=== PATIENT | male | born 1955 | race Caucasian/White ===

== ENCOUNTER 2017-05-03 08:53 | Emergency (ER) | payer SELFPAY ==
--- NOTE | 2017-05-03 09:07 | XR_ITS ---
XR chest 2V HISTORY: ITS.REASON: cough x 4 days, now SOA ORDERING PHYSICIAN: Wisam Hurd PATIENT AGE: 61 years COMPARISON: None available FINDINGS: The cardiomediastinal silhouette and pulmonary vascularity are within normal limits. There are mild atelectatic changes in the left lung base with minimal nodularity in the retrocardiac region on the left measuring millimeters. No previous studies available for comparison. The remaining lungs are clear. No acute bony anomalies. IMPRESSION: Mild left basilar atelectasis with possible nodular opacity in the left lung base. Follow-up suggested. This persists then, CT may be of further value.
[2017-05-03 09:17] VITALS: BP 123/94; PULSE 98; RESP 22; TEMP 37.7; O2SAT 99; BMI 29.0
[2017-05-03 09:30] LABS: UTC Influenza A Antigen Negative (Negative); UTC Influenza B Antigen Positive (Negative)
--- NOTE | 2017-05-03 09:40 | HMH.EDUTC ---
[facility] Disposition Clinical Impression: Influenza B, Influenzal bronchitis Disposition: Home, Self-Care Condition on Discharge: Good Instructions: DI for Acute Bronchitis, DI for Influenza -- Adult Additional Instructions: Flu * Start Tamiflu today if you are going to take it. Discussed risks and possible benefits. * Lots of rest * Increase fluids, water, gatorade, powerade, pedialyte if /toddler/child * Monitor Temp. Tylenol every 4 hours as needed no more then 5 times a day or 4000mg in 24 hours and/or ibuprofen every 6 hours as needed no more then 3200mg in 24 hours (as long as your primary care doctor has told you that it is ok to take both) for fever/aches/pain. ER if fever no less than 101 despite tylenol and Ibuprofen * OTC cold/flu/sinus medication is ok but pick one. Do not take multiple different ones as they have similar ingredients and you can overdose on cold medication. * You (or your child) are contagious until no fever, aches, chills x 24 hours without medication for symptoms. Bronchitis/Cough * Call later today for final xray results.....[phone] * start antibiotic today. Be sure to complete entire prescription even if feeling better. * humidifier/vaporizer/hot steamy shower * Inhaler every 4-6 hours as needed like we discussed. If unsure how to use it, ask pharmacist to demonstrate how. Should help open airways and improve cough, wheezing, shortness of breath. * Mucinex during the day for your cough and cough suppressant only at night. Be sure to drink lots of water. Insurance may not cover a prescription of mucinex. Might be cheaper to get 400mg tablets and take 2 tablets morning, midday and evening all with lots of water. Follow up with primary care or return to [facility] for new or worsening symptoms, improvement followed by suddenly feeling worse OR no noticeable improvement over the next 48-72 hours. 911 for difficulty breathing Prescriptions: Albuterol Sulfate [Albuterol HFA Inhaler] 1 - 2 puffs IH Q4-6H PRN #1 inh PRN Reason: Shortness Of Breath Or Wheezing Azithromycin [Z-Tigre 250mg Tab] 250 mg PO UD DOSE PK #6 tab guaiFENesin [Mucinex 600mg tablet] 600 mg PO BID #20 tab.er.12h Oseltamivir Phosphate [Tamiflu 75mg Capsule] 75 mg PO BID #10 cap Forms: Work/School Release Time of Disposition: 10:40 (pt is without insurance, plans not to take tamiflu. Was given albuterol inhaler in clinic, will get mucinex OTC and will get the antibiotic. ) Medical Decision Making Vital Signs: 05/03/17 09:17 Temperature 100 F H Temperature Source Temporal Artery Scan Pulse Rate [Right Brachial] 98 H Respiratory Rate 22 Blood Pressure [Right Arm] 123/94 Blood Pressure Mean [Right Arm] 103 Blood Pressure Source [Right Arm] Automatic Cuff Blood Pressure Position [Right Arm] Sitting 02 Sat by Pulse Oximetry 99 Oxygen Delivery Method Room Air - Lab Data Lab results reviewed: Yes: I reviewed the patient's lab results. Lab Results 05/03/17 09:07: Influenza Type A Ag Negative, Influenza Type B Ag Positive A Orders (Tests/Meds): ED MEDICATIONS Discontinued Medications Generic Name Dose Route Start Last Admin Trade Name Freq PRN Reason Stop Dose Admin Albuterol Sulfate 2 puffs 05/03/17 10:47 Proventil-Hfa 90mcg/Puff Inhaler IH 06/02/17 10:46 Q4HP PRN Shortness Of Breath Miscellaneous 1 unit 05/03/17 10:47 Aerochamber/Optihaler MC 05/03/17 10:48 ONCE ONE - Radiology Data #1 Image(s): Chest Image Reviewed: Yes I reviewed the patient's radiology image, Yes I reviewed the patient's radiology image w/the ED provider No obvious infiltrate per ANNABELLE Worthy. Questions area behind heart. Attempted to contact radiologist multiple times to review. Not available. Dr. Banda feels most likely bronchitis and not infiltrate - Blaze Inquiry Pt receiving controlled substance: No [facility] HPI - General Stated complaint: soa cough flu symptoms
--- NOTE | 2017-05-03 10:56 | PC.NURSE ---
1055- RT AT BEDSIDE GIVING PT INSTRUCTIONS ON USE OF INHALER.
== END 2017-05-03 11:07 | disposition home or self-care (01) ==
PROVIDERS: Emergency Provider Nurse Practitioner Family
DX: J10.1 Influenza due to other identified influenza virus with other respiratory manifestations (principal); I10 Essential (primary) hypertension; Z87.891 Personal history of nicotine dependence
CPT/HCPCS: 71046; 87804; 99201

== ENCOUNTER → 2017-09-11 06:43 | Outpatient (CLI) | payer BC, SELFPAY ==
--- NOTE | 2017-09-11 06:46 | NM_ITS ---
History and Indications: Hypertension, tobacco use, family history, chest pain, shortness of breath and fatigue Procedure: Patient exercised on Montez protocol 6 minutes, resting heart rate was 55 bpm resting blood pressure 123/69, with exercise maximum heart rate achieved was 1 28 bpm which is equal to 81% of the maximum predicted heart rate and a blood pressure was 180/76. Test was stopped due to shortness of breath patient denied any complained of chest pain. Patient has adequate exercise capacity achieved 7mets of workload on treadmill, the blood pressure response to exercise was adequate. Patient did not achieve the target heart rate. Electrocardiogram: Resting electrocardiogram showed sinus bradycardia, with exercise there is less than 1.[address] segment depression noted from the baseline EKG. The EKG portion of the exercise Myoview is nondiagnostic as patient did not achieve the target heart rate. Cardiac stress and resting SPECT images: Cardiac stress and rest images were obtained using technetium 99 Myoview 30.4 mCi at stress and 9.8 mCi at rest. Gated SPECT further analysis of segmental wall motion and calculation of the ejection fraction also done. Cardiac stress and rest SPECT images show uniform myocardial activity without any segmental perfusion abnormality, computer derived ejection fraction is 56% with no obvious regional wall motion abnormality, right ventricle is normal size and contractility. Conclusion: 1. The EKG portion of the exercise Myoview is nondiagnostic patient did not achieve the target heart rate. Patient has adequate exercise capacity achieved 7mets of workload on treadmill, the blood pressure response to exercise was adequate. There was no exercise-induced chest discomfort. 2. No obvious scintigraphic evidence of reversible ischemia seen, computer derived ejection fraction is 56% with no obvious regional wall motion abnormality, right ventricle is normal size and contractility.
--- NOTE | 2017-09-11 06:46 | CA_ITS ---
PROCEDURE: 2-D M-mode and color Doppler study INDICATIONS FOR THE TEST: Chest pain COPD Heart Murmur Tobacco SmokingX Palpitations Fatigue Syncope Edema HypertensionXDiabetes Mellitus Rheumatic Fever SOBXDOEXObesity Hyperlipidemia Family History HD Additional History CAD,ETOH ABUSE PATIENT INFORMATION HEIGHT: 71 WEIGHT:189 GENDER: Male B/P:130/80 2-D/M-MODE INTERPRETATION: 2-D MEASUREMENTS OBSERVED VALUES IN CMS Right Ventricular Dimension (RVDd) 1.9 Interventricular Septum (Thickness)(IVsd) .8 Left Ventricular Internal Dimensions(LVIDd) 5.7 Left Ventricular Posterior Wall (Thickness)(LVPWd) .9 Aortic Root 3.4 Aortic Cusp Separation 2.1 Left Atrial Dimensions (LAD) 3.2 2D 1. Left atrium is mildly enlarged, left ventricle is normal size, there is mild qualitative concentric left ventricular hypertrophy, visually estimated ejection fraction 55% with no obvious regional wall motion abnormality, septum has sigmoid configuration. 2. Right atrium is recommended ventricle are normal size and contractility. 3. The aortic, mitral and tricuspid valve are grossly normal. 4. The pulmonic valve is poorly visualized 5. No significant pericardial effusion noted. DOPPLER INTERROGATION: Doppler interrogation of the aortic, mitral and tricuspid valvular presence of mild mitral and tricuspid regurgitation, calculated right ventricular systolic pressure is within normal range, diastolic parameters are inconclusive. CONCLUSION: 1. Normal left ventricular size, preserved left ventricular systolic function, visually estimated ejection fraction 55% with no obvious regional wall motion abnormality, diastolic parameters are inconclusive. 2. Mild mitral and tricuspid regurgitation 3. No significant no significant pericardial effusion noted.
--- NOTE | 2017-09-11 06:50 | US_ITS ---
US Arterial Ankle Brachial Ind History: ITS.REASON: CLAUDICATION, claudication, rest pain, current smoker ORDERING PHYSICIAN: Hayden Anthony MD PATIENT AGE: 61 years TECHNIQUE: Segmental pressures obtained of both right and left leg. These are compared to brachial blood pressure to yield index at each level sampled including summary IONA. The data sheets from the procedure are available in PACS FINDINGS Rest study only performed today No prior studies available for comparison. Blood pressures reported are in millimeters mercury. RIGHT LEG IONA = 1.2. RIGHT LEG TBI=.9 Brachial BP: 123 Thigh BP: 130 Calf BP: 144 Ankle PT: 157 Ankle DP : 155 Digit =110 LEFT LEG IONA = 1.2 LEFT LEG TBI= 1.0 Brachial BPD: 127 Thigh BP: 135 Calf BP: 134 Ankle PT:154 Ankle DP: 132 Digit = 125 Pulses and waveforms: Normal IMPRESSION: The ABIs as reported above are within normal limits. Waveforms and pulses are also unremarkable.
--- NOTE | 2017-09-11 07:53 | HMH.ITSHM ---
BLOOD PRESSURE MED ASA LEG CRAMP PILLS
== END ==
PROVIDERS: PCP Nurse Practitioner Family; Visit Provider Internal Medicine Cardiovascular Disease
DX: I70.213 Atherosclerosis of native arteries of extremities with intermittent claudication, bilateral legs (principal); I73.9 Peripheral vascular disease, unspecified
CPT/HCPCS: 78452; 93017; 93306; 93922; A9502

== ENCOUNTER → 2018-03-05 10:11 | Outpatient (CLI) | payer BC, SELFPAY ==
--- NOTE | 2018-03-05 10:21 | US_ITS ---
US gallbladder HISTORY: Right-sided abdominal pain ITS.REASON: pain ORDERING PHYSICIAN: Ced Al MD PATIENT AGE: 62 years Comparison: None FINDINGS: PANCREAS: Unremarkable. No obvious mass or abnormal fluid collection. No ductal dilatation LIVER: There is coarse echogenicity of the liver irregularity at the liver margin better demonstrated on the CT scan consistent with cirrhosis. There is appropriate direction of blood flow within the portal vein which does not appear dilated by ultrasound. RIGHT KIDNEY: Unremarkable. Normal size and echogenicity. No hydronephrosis GALLBLADDER: No gallstones apparent. There is a small amount sludge. A small polyp noted along the posterior wall the gallbladder. This measures 4 mm. Common bile duct is normal at 3 mm. IMPRESSION: 1. The findings are compatible with cirrhosis. 2. Small amount of sludge in the gallbladder the small gallbladder polyp. No gallstones apparent
[2018-03-05 10:25] LABS: Basophils % 0.2 % (0.1-2.0); Eosinophils # 0.2 K/mm3 (0.0-0.4); Eosinophils % 1.3 % (0.1-12.0); Hematocrit 45.1 % (42.0-52.0); Hemoglobin 15.2 g/dL (14.1-18.0); Lymphocytes # 1.2 K/mm3 (0.7-4.5); Mean Corpuscular HGB Conc 33.7 g/dL (31.8-35.4); Mean Corpuscular Hemoglobin 32.2 pg (27.0-31.2); Mean Corpuscular Volume 95.4 fl (80-94); Monocytes # 0.6 K/mm3 (0.1-1.0); Monocytes % 5.3 % (1.7-9.3); Neutrophils # 9.9 K/mm3 (1.8-7.8); Neutrophils % 83.3 % (37.0-80.0); Platelet Count 131 K/mm3 (142-424); Red Blood Count 4.73 M/mm3 (4.60-6.20); Red Cell Distribution Width 13.3 % (11.5-17.5); White Blood Count 11.9 K/mm3 (4.8-10.8)
[2018-03-05 10:33] LABS: INR 1.15 (0.9-1.1); Prothrombin Time 11.8 seconds (9.4-11.8)
[2018-03-05 12:51] LABS: Alanine Aminotransferase 100 U/L (12-78); Albumin Level 3.4 gm/dL (3.4-5.0); Albumin/Globulin Ratio 0.8 (1.1-1.8); Alkaline Phosphatase 114 U/L (46-116); Anion Gap 14.1 mEq/L (5-15); Aspartate Amino Transferase 46 U/L (15-37); Bilirubin,Total 0.7 mg/dL (0.2-1.0); Blood Urea Nitrogen 14 mg/dL (7-18); Calcium 9.5 mg/dL (8.5-10.1); Carbon Dioxide 26 mmol/L (21.0-32.0); Chloride 102 mmol/L (98-107); Creatinine,Serum 0.72 mg/dL (0.70-1.30); Estimated Glomerular Filt Rate 110 ml/min (>60); GFR (African American) 133 ML/MIN (>60); Globulin 4.1 gm/dl (1.3-3.2); Glucose 138 mg/dL (74-106); Lipase 346 u/L (73-393); Potassium 4.1 mmoL/L (3.5-5.1); Sodium 138 mmol/L (136-145); Total Protein,Serum 7.5 gm/dL (6.4-8.2)
[2018-03-06 16:04] LABS: Hep A Ab, Total Positive (Negative)
[2018-03-08 20:11] LABS: HCV Genotype Charge YES; Hepatitis C Genotype 1a (.)
== END ==
PROVIDERS: Visit Provider Emergency Medicine
DX: R76.8 Other specified abnormal immunological findings in serum (principal); R74.8 Abnormal levels of other serum enzymes; R52 Pain, unspecified
CPT/HCPCS: 36415; 76705; 80053; 83690; 85025; 85610; 86708; 87522; 87902

== ENCOUNTER → 2018-03-15 14:13 | Outpatient (CLI) | payer BC, SELFPAY ==
[2018-03-19 09:16] LABS: HIV Screen 4th Generation wRfx Non Reactive (Non Reactive)
== END ==
PROVIDERS: Visit Provider Emergency Medicine
DX: B19.20 Unspecified viral hepatitis C without hepatic coma (principal)
CPT/HCPCS: 36415; 86703; G0432

== ENCOUNTER → 2018-04-03 09:55 | Outpatient (CLI) | payer BC, SELFPAY ==
--- NOTE | 2018-04-03 09:56 | NM_ITS ---
NM hepatobiliary wo pharm COMPARISON: Ultrasound the gallbladder 03/05/2018 HISTORY: Upper abdominal pain, gallbladder sludge seen on the ultrasound study TECHNIQUE: 8.79 mCi technetium 9M Choletec was injected. Following the initial scanning a fatty meal was given to evaluate for ejection fraction. FINDINGS: The hepatic phase appear normal. There is faint activity seen in gallbladder 20 minutes becoming more intense up through 50 minutes. There is activity in common bile duct and duodenal sweep and proximal small bowel at 45 and 50 minutes images. Following the fatty meal the ejection fraction was cannulated at 46% which is within normal range. There is no pain following the fatty meal. IMPRESSION: Normal study with normal ejection fraction
--- NOTE | 2018-04-03 10:12 | HMH.ITSHM ---
Current Home Medications as stated by this patient Evarisot Whitfield or artist representative. []BLOOD PRESSURE MED
== END ==
PROVIDERS: PCP Emergency Medicine; Visit Provider Emergency Medicine
DX: R10.9 Unspecified abdominal pain (principal); K82.8 Other specified diseases of gallbladder
CPT/HCPCS: 78226; A9537

== ENCOUNTER → 2018-12-04 14:06 | Outpatient (CLI) | payer OTHER, SELFPAY ==
[2018-12-04 14:57] LABS: Basophils % 0.6 % (0.1-2.0); Eosinophils # 0.3 K/mm3 (0.0-0.4); Eosinophils % 5.1 % (0.1-12.0); Hematocrit 47.7 % (42.0-52.0); Hemoglobin 16.2 g/dL (14.1-18.0); Lymphocytes # 1.2 K/mm3 (0.7-4.5); Lymphocytes % 22.6 % (10-50); Mean Corpuscular HGB Conc 33.9 g/dL (31.8-35.4); Mean Corpuscular Hemoglobin 33.3 pg (27.0-31.2); Mean Corpuscular Volume 98.4 fl (80-94); Mean Platelet Volume 10.1 fl (7.4-10.4); Monocytes # 0.4 K/mm3 (0.1-1.0); Monocytes % 8.1 % (1.7-9.3); Neutrophils # 3.4 K/mm3 (1.8-7.8); Neutrophils % 63.6 % (37.0-80.0); Platelet Count 104 K/mm3 (142-424); Red Blood Count 4.85 M/mm3 (4.60-6.20); Red Cell Distribution Width 13.3 % (11.5-17.5); White Blood Count 5.4 K/mm3 (4.8-10.8)
== END ==
PROVIDERS: Visit Provider Emergency Medicine
DX: M25.512 Pain in left shoulder (principal)
CPT/HCPCS: 85025

== ENCOUNTER → 2019-01-10 12:02 | Outpatient (CLI) | payer OTHER, SELFPAY ==
[2019-01-10 14:01] LABS: Hemoglobin A1C 5.5 % (0.0-7.0)
[2019-01-11 12:32] LABS: Folate 13.5 ng/mL (>3.0); Vitamin B12 836 pg/mL (232-1245); Vitamin D 25 Hydroxy 28.8 ng/mL (30.0-100.0)
== END ==
PROVIDERS: Visit Provider Nurse Practitioner Family
DX: R25.1 Tremor, unspecified (principal); R73.9 Hyperglycemia, unspecified
CPT/HCPCS: 36415; 82607; 82652; 82746; 83036

== ENCOUNTER 2020-06-21 22:36 | Emergency (ER) | payer MEDICARE, OTHER, SELFPAY ==
[2020-06-22 02:20] VITALS: BP 00/00; PULSE 0; RESP 0; TEMP -17.7; TEMP 0
== END 2020-06-22 02:41 | disposition left against medical advice (07) ==
LOC: ER 06-22 02:37
PROVIDERS: Emergency Provider Emergency Medicine; PCP Emergency Medicine
DX: Z53.21 Procedure and treatment not carried out due to patient leaving prior to being seen by health care provider (principal)
CPT/HCPCS: 99211

== ENCOUNTER 2020-06-29 12:14 | Observation (INO) | payer MEDICARE, OTHER, SELFPAY ==
[2020-06-29] VITALS (13 sets, daily range): BP systolic 129–160; BP diastolic 78–94; PULSE 46–78; RESP 16–18; TEMP 36.6; O2SAT 96–98; BMI 27.1; BMI 27.8
--- NOTE | 2020-06-29 12:20 | XR_ITS ---
PROCEDURE: XR CHEST PORTABLE CLINICAL HISTORY: SOA COMPARISON: CR CXR2V XR chest 2V from 05/03/2017 CR CXR2V XR chest 2V from 07/28/2017 CR XR CHEST 2V from 11/29/[address] ANGIO CHEST from 11/29/2018 FINDINGS: This is a poor inspiration. There is minimal right basilar discoid atelectasis. The right mid and upper lung field and left lung shaw are clear. There is no definite pleural fluid. Cardiac size is normal and vascularity is normal. IMPRESSION: Poor inspiration with minimal right basilar atelectasis Dictated by: Dr. Vick Diaz MD 06/29/2020 13:12 Dr. Vick Diaz MD in [place] 06/29/2020 13:12
[2020-06-29 12:37] LABS: Adenovirus,PCR Not Detected (NotDetected); Bordetella Pertussis Not Detected (NotDetected); Chlamydophila Pneumoniae, PCR Not Detected (NotDetected); Coronavirus 19, PCR Not Detected (NotDetected); Coronavirus 229E Not Detected (NotDetected); Coronavirus NL63 Not Detected (NotDetected); Coronavirus OC43 Not Detected (NotDetected); Coronovirus HKU1,PCR Not Detected (NotDetected); Human Metapneumovirus Not Detected (NotDetected); Influenza A, PCR Not Detected (NotDetected); Influenza AH1, 2009 Not Detected (NotDetected); Influenza AH1, PCR Not Detected (NotDetected); Influenza AH3,PCR Not Detected (NotDetected); Influenza B, PCR Not Detected (NotDetected); Mycoplasma Pneumoniae, PCR Not Detected (NotDetected); Parainfluenza 1, PCR Not Detected (NotDetected); Parainfluenza 2, PCR Not Detected (NotDetected); Parainfluenza 3, PCR Not Detected (NotDetected); Parainfluenza 4, PCR Not Detected (NotDetected); Respiratory Syncytial Virus Not Detected (NotDetected); Rhinovirus/Enterovirus Not Detected (NotDetected)
--- NOTE | 2020-06-29 12:53 | HMH.EDGENADL ---
ED Disposition Clinical Impression: Edema Qualifiers: Edema type: unspecified Qualified Code(s): R60.9 - Edema, unspecified Ascites Qualifiers: Ascites type: due to alcoholic cirrhosis Qualified Code(s): K70.31 - Alcoholic cirrhosis of liver with ascites Cirrhosis Qualifiers: Hepatic cirrhosis type: alcoholic cirrhosis Ascites presence: with ascites Qualified Code(s): K70.31 - Alcoholic cirrhosis of liver with ascites Disposition: Admitted as Observation Condition on Discharge: [facility] - Critical Care Critical Care Time: No Attestation: On 06/29/20, the high probability of a clinically significant, sudden or life threatening deterioration of the following system(s) required my full and direct attention, intervention and personal management. The time I documented below is in addition to time spent performing reported procedures but includes the following listed in this critical care notation. Medical Decision Making - Blaze Inquiry Pt receiving controlled substance: No Vital Signs: 06/29/20 12:16 06/29/20 14:15 06/29/20 14:30 Temperature 97.8 F Temperature Source Oral Pulse Rate 57 L 59 L Pulse Rate [Right Radial] 60 Respiratory Rate 16 Blood Pressure 153/94 H Blood Pressure [Right Arm] 160/91 H Blood Pressure Mean 123 Blood Pressure Mean [Right Arm] 114 Blood Pressure Source [Right Arm] Automatic Cuff Blood Pressure Position [Right Arm] Sitting 02 Sat by Pulse Oximetry 97 97 96 Oxygen Delivery Method Room Air 06/29/20 14:45 06/29/20 16:09 06/29/20 16:31 Temperature Temperature Source Pulse Rate 66 46 L 50 L Pulse Rate [Right Radial] Respiratory Rate Blood Pressure 140/78 160/89 H Blood Pressure [Right Arm] Blood Pressure Mean 98 112 Blood Pressure Mean [Right Arm] Blood Pressure Source [Right Arm] Blood Pressure Position [Right Arm] 02 Sat by Pulse Oximetry 97 98 97 Oxygen Delivery Method 06/29/20 16:45 06/29/20 17:00 06/29/20 17:15 Temperature Temperature Source Pulse Rate 62 78 59 L Pulse Rate [Right Radial] Respiratory Rate Blood Pressure 137/84 Blood Pressure [Right Arm] Blood Pressure Mean 101 Blood Pressure Mean [Right Arm] Blood Pressure Source [Right Arm] Blood Pressure Position [Right Arm] 02 Sat by Pulse Oximetry 97 97 98 Oxygen Delivery Method 06/29/20 17:30 06/29/20 18:00 06/29/20 18:15 Temperature 97.8 F 97.9 F Temperature Source Oral Pulse Rate 67 67 Pulse Rate [Right Radial] 66 Respiratory Rate 18 18 Blood Pressure 147/90 H 147/90 H Blood Pressure [Right Arm] 148/78 H Blood Pressure Mean 103 Blood Pressure Mean [Right Arm] 101 Blood Pressure Source [Right Arm] Automatic Cuff Blood Pressure Position [Right Arm] 02 Sat by Pulse Oximetry 97 97 Oxygen Delivery Method Room Air Room Air - Lab Data Lab Results 06/29/20 12:20: Chlamy pneumoniae PCR Not detected, Adenovirus (PCR) Not detected, B. pertussis DNA (PCR) Not detected, Coronavirus OC43 (PCR) Not detected, Coronavirus HKU1 (PCR) Not detected, Coronavirus 229E (PCR) Not detected, SARS-CoV-2 (PCR) Not detected, Coronavirus NL63 (PCR) Not detected, Human Metapneumovir PCR Not detected, Influenza A (H1) PCR Not detected, Influ A (H1N1/09) PCR Not detected, Influenza A (H3) PCR Not detected, Influenza Type A (PCR) Not detected, Influenza Type B (PCR) Not detected, M. pneumoniae (PCR) Not detected, Parainfluenza 1 (PCR) Not detected, Parainfluenza 2 (PCR) Not detected, Parainfluenza 3 (PCR) Not detected, Parainfluenza 4 (PCR) Not detected, RSV (PCR) Not detected, Entero/Rhino (PCR) Not detected 06/29/20 12:44: WBC 5.6, RBC 4.62, Hgb 15.9, Hct 45.2, MCV 98.0 H, MCH 34.4 H, MCHC 35.1, RDW 13.7, Plt Count 102 L, MPV 9.6, Neut % (Auto) 69.9, Lymph % (Auto) 16.8, [place] % (Auto) 5.4, Eos % (Auto) 7.3, Baso % (Auto) 0.7, Neut # (Auto) 3.9, Lymph # (Auto) 0.9, [place] # (Auto) 0.3, Eos # (Auto) 0.4, Baso # (Auto) 0.0 06/29/20 1
--- NOTE | 2020-06-29 12:57 | ECG_ITS ---
APPROVED REPORT Exam: Resting ECG HR:56 bpm ECG Measurements Heart Rate 56 AXES NH 152 P 46 QRSd 82 QRS 26 QT 436 T 43 QTc 420 Conclusion Sinus bradycardia with premature atrial complexes Otherwise normal ECG Electronically signed by : Octaviano Tapia, 06/29/2020 20:44:13
[2020-06-29 13:04] LABS: Chloride 106 mmol/L (98-107); Potassium 3.6 mmoL/L (3.5-5.1); Sodium 139 mmol/L (136-145)
[2020-06-29 13:05] LABS: Basophils % 0.7 % (0.1-2.0); Eosinophils # 0.4 K/mm3 (0.0-0.4); Eosinophils % 7.3 % (0.1-12.0); Hematocrit 45.2 % (42.0-52.0); Hemoglobin 15.9 g/dL (14.1-18.0); Lymphocytes # 0.9 K/mm3 (0.7-4.5); Lymphocytes % 16.8 % (10-50); Mean Corpuscular HGB Conc 35.1 g/dL (31.8-35.4); Mean Corpuscular Hemoglobin 34.4 pg (27.0-31.2); Mean Platelet Volume 9.6 fl (7.4-10.4); Monocytes # 0.3 K/mm3 (0.1-1.0); Monocytes % 5.4 % (1.7-9.3); Neutrophils # 3.9 K/mm3 (1.8-7.8); Neutrophils % 69.9 % (37.0-80.0); Platelet Count 102 K/mm3 (142-424); Red Blood Count 4.62 M/mm3 (4.60-6.20); Red Cell Distribution Width 13.7 % (11.5-17.5); White Blood Count 5.6 K/mm3 (4.8-10.8)
[2020-06-29 13:07] LABS: Anion Gap 9.6 mEq/L (5-15); Blood Urea Nitrogen 11 mg/dl (9-20); Calcium 9.2 mg/dl (8.4-10.2); Carbon Dioxide 27 mmol/L (22.0-30.0); Creatinine Clearance Estimated 3 mL/min (50-200); Estimated Glomerular Filt Rate 135 ml/min (>60); GFR (African American) 164 ML/MIN (>60); Glucose 101 mg/dl (74-100)
--- NOTE | 2020-06-29 13:07 | CA_ITS ---
APPROVED REPORT EXAM: Comprehensive 2D, Doppler, and color-flow Echocardiogram Frame Gate Mortiser Operator: Kathy Mendez RVT Ht: 5 ft 11 in Wt: 209lbs BSA: 2.15 BP: 160/91 mmHg Indications: CHF,CIRRHOSIS,HTN,HLD,FATIGUE,EX SMOKER,EDEMA 2D Dimensions LVOT 1.95 cm (M/F) 1.5-2.5 LA Volume 36.50 mL LA Volume Index 16.97 mL/m2 (M/F) 16-34 M-Mode Dimensions RVDd 2.43 cm (0.9-2.6) LA Diam 3.82 cm (1.9-4.0) LVDd 4.97 cm (3.5-5.7) Ao Diam 3.14 cm (2.0-3.7) LVDs 3.22 cm (3.5-5.7) IVSd 0.82 cm (0.6-1.1) PWd 0.82 cm (0.6-1.1) EF (Teich) 64.30% FS 35.20% EDV (Teich) 116.60 mL ESV (Teich) 41.60 mL LV Diastology E Decel Time 330.00 (160-240 msec) E/A Ratio 1.2 MED E' 7.00 (< 7 cm/sec) E'/MED E' Ratio 12.03 (>14) LAT E' 7.30 (<10 cm/sec) E/LAT E' Ratio 11.53 (>14) Mitral Valve MV E Max Jared. 84.00 (40-130 cm/s) MV A Velocity 72.00 (40-130 cm/s) E/A Ratio 1.18 MV Decel. Time 330.00 (160-240 ms) MV PHT 97.00 ms Pulmonary Valve PV Peak Velocity 85.00 (50-150 cm/s) Tricuspid Valve TR P. Velocity 337.00 cm/s RAP Estimate 10.00 mmHg RVSP 55.50 mmHg Left Ventricle Left atrium is mildly enlarged, left ventricle is normal size, mild concentric left ventricular hypertrophy, visually estimated ejection fraction 55% with no regional wall motion abnormality, grade 1 diastolic dysfunction seen without tissue Doppler evidence of raise left atrial pressure. Right Ventricle Right atrium and right ventricle are normal size and contractility. Aortic Valve Aortic valve is minimally thickened and fibrosed, there is no aortic stenosis or aortic insufficiency. Mitral Valve Mitral valve is grossly normal, there is trace mitral regurgitation. Tricuspid Valve Tricuspid valve grossly normal, there is trace tricuspid regurgitation, tricuspid regurgitation jet velocity is inadequate for calculation of the right ventricular systolic pressure. Pulmonic Valve Pulmonic valve is poorly visualized. Great Vessels Aortic root is normal size. Pericardium No significant pericardial effusion noted. Conclusion 1. Normal left ventricular size, mild concentric left ventricular hypertrophy, visually estimated ejection fraction 55% with no regional wall motion abnormality, grade 1 diastolic dysfunction seen without tissue Doppler evidence of raise left atrial pressure. 2. Trace mitral and tricuspid regurgitation. 3. No significant pericardial effusion noted. Electronically signed by : Hayden Anthony, 06/29/2020 19:57:40
--- NOTE | 2020-06-29 13:12 | CT_ITS ---
PROCEDURE: CT ABDOMEN PELVIS W CON CLINICAL INDICATION: ascites ascites, bloating, shortness of breath, known cirrhosis of the liver COMPARISON: CT CT ABDOMEN PELVIS W CON from 11/29/2018 TECHNIQUE: IV Contrast: 75ML OPTIRAY 350 Oral Contrast none given Axial images obtained with sagittal and coronal reformats. All CT scans at the facility use one or more dose reduction, viz: automated exposure control, ma/kV adjustment per patient size (including targeted exams where dose is matched to indication, i.e. head), or iterative reconstruction technique. FINDINGS: Lower thorax: There is right lower lobe atelectasis, there is no pleural fluid ABDOMEN: Liver: Advanced cirrhotic changes of the liver are again noted hypertrophy of the left lobe, nodular contour of the liver, prominence of the caudate lobe and borderline splenomegaly. Gallbladder: The gallbladder is normal in size and there is a small calcified gallstone near the neck of the gallbladder.. Pancreas: No masses or peripancreatic fluid collections. Spleen: Borderline splenomegaly Adrenals: Again noted is a small hypodense mass involving the right adrenal gland with a calcification stable and unchanged from the previous exam. Kidneys/ureters: The kidneys are normal in size and show symmetrical function. There is a calcification lower pole right kidney. There is no obstructive uropathy of either kidney. ABDOMEN & PELVIS: Stomach bowel: Nondistended. No obvious mass or thickening. There is a small hiatal hernia. Peritoneum: There is a massive amount of abdominal ascites representing a definite change from the previous exam at which time no definite ascites was seen. Lymph nodes: No enlarged lymph nodes apparent. Vasculature: No evidence of abdominal aortic aneurysm. No retroperitoneal hemorrhage evident. Bones: No acute fracture PELVIS: Reproductive: unremarkable Bladder: The bladder is partially decompressed and large amount of ascitic fluid ascending into the pouch of Kenan between the urinary bladder and rectum. Appendix: Not definitely identified but there is no definite evidence of appendicitis. IMPRESSION: Advanced cirrhotic changes of the liver with a massive amount of abdominal ascites representing the most significant change from the previous study a probable portal hypertension. 1. Nonobstructing calculus lower pole right kidney Dictated by: Dr. Vick Diaz MD 06/29/2020 14:17 Dr. Vick Diaz MD in [place] 06/29/2020 14:17
[2020-06-29 13:17] LABS: NT Pro Brain Natriuretic Pep. 85.1 pg/mL (0-125)
[2020-06-29 13:19] LABS: Lactic Acid 1.4 mmol/L (0.7-2.1)
[2020-06-29 13:21] LABS: Troponin I < 0.01 ng/ml (0.00-0.034)
[2020-06-29 13:32] LABS: Alanine Aminotransferase 69 U/L (12-78); Alkaline Phosphatase 90 U/L (38-126); Aspartate Amino Transferase 21 U/L (17-59); Bilirubin,Direct 0.6 mg/dl (0.0-0.4); Bilirubin,Total 2.6 mg/dl (0.2-1.3)
[2020-06-29 13:33] LABS: Albumin Level 4.3 g/dl (3.5-5.0); Total Protein,Serum 6.7 g/dl (6.3-8.2)
--- NOTE | 2020-06-29 14:31 | US_ITS ---
PROCEDURE: US PARACENTESIS CLINICAL INDICATION: ascites COMPARISON: No exams were available for comparison TECHNIQUE: Informed consent was obtain prior to procedure. After appropriate Time out, under aseptic conditions and local anesthesia with 1% buffered lidocaine using sonographic guidance a 6 Lao Xvcs-D-Epyjeops catheter was inserted into the largest pocket of fluid localized in the right lower quadrant. Approximately 4900 mL serosanguineous fluid was drained. The patient tolerated the procedure well and left the radiology suite in stable condition. FINDINGS: Diffuse ascites IMPRESSION: Successful sonographic guided paracentesis without complication. Dictated by: Gopal Loya MD 06/29/2020 19:24 Gopal Loya MD in [facility] 06/29/2020 19:24
--- NOTE | 2020-06-29 14:38 | PC.NURSE ---
care management called for admission
--- NOTE | 2020-06-29 14:58 | PC.NURSE ---
taking pt to ultra sound
--- NOTE | 2020-06-29 15:57 | HMH.CNCARD ---
History of Present Illness Consult date: 06/29/20 Requesting physician: Antelmo Rivera Consult reason: shortness of breath Chief complaint: Shortness of breath History of present illness: 64-year-old male presented to ED with increased shortness of breath and abdominal distention. Patient states for the past few days he has noticed that he has been having increased abdominal swelling extending down to his lower extremities. Patient denies chest pain, tightness or pressure. Patient does have shortness of breath especially with exertion. Patient denies dizziness or palpitations. Patient does state that he just has a uncomfortable feeling in his epigastric area and feels that it is mostly due to this distention of his abdomen. Patient denies any diarrhea or constipation. Patient was seen by PCP earlier today. Patient was sent to the ED for evaluation and possible admission. Patient denies any history of hypertension, diabetes or COPD. Patient states he is a ex tobacco user and alcohol abuser but has quit 4 years ago. Patient does have ascites noted of the abdominal area. Patient was diagnosed with cirrhosis of the liver [address] of the abdomen and pelvis was performed which revealed advanced cirrhotic changes of the liver and massive amount of abdominal ascites and a nonobstructing calculus lower pole right kidney. Troponin x1 negative. ECG revealed sinus bradycardia with premature atrial complexes with a heart rate of 56 bpm. Blood pressure is stable. CTA of Abd/pelvis IMPRESSION: Advanced cirrhotic changes of the liver with a massive amount of abdominal ascites representing the most significant change from the previous study a probable portal hypertension. 1. Nonobstructing calculus lower pole right kidney Discussed plan of care with Dr. Guzman. Obtain echocardiogram to assess for LV function and valve status. Pending on the results of the echocardiogram may suggest or recommend changes to medications or treatment therapy. Please notify cardiology of any changes in patient status. Thank you for allowing cardiology to participate in the care of this patient. [facility] History I have reviewed the patient's past medical history: Yes Medical History: Reports:: Anxiety, Hypertension Denies:: Diabetes Mellitus Type 2 *Have you ever received a pneumonia vaccine?: No *Have you received a flu vaccine this season?: No Other Surgeries: Yes: No Previous Surgery, Other Amputation: No Fractures: No - *Social History Smoking Status: Current every day smoker Tobacco Type: cigarettes # Packs/Day (cigarettes): 1 Alcohol Intake: never Alcohol Intake Frequency:: other Substance Use Type: denies use *Occupational Status:: retired Housing: house Household Members: family *Travel in the last 8 weeks: Inside the [place] - Psychiatric History Pschychiatric History:: Reports:: Anxiety Family Hx:: Coronary Artery Disease, Heart Attack, Stroke, Cancer Meds Home Medications Medication Instructions Recorded Confirmed Type No Known Home Medications 02/04/20 06/29/20 History Allergies Allergy/AdvReac Type Severity Reaction Status Date / Time No Known Allergies Allergy Verified 06/29/20 10:56 Exam Vital signs and Labs for Last 24 Hours: Temp Pulse Resp BP Pulse Ox 97.8 F 66 16 153/94 H 97 06/29/20 12:16 06/29/20 14:45 06/29/20 12:16 06/29/20 14:30 06/29/20 14:45 Laboratory Results - last 24 hr 06/29/20 12:20: Chlamy pneumoniae PCR Not detected, Adenovirus (PCR) Not detected, B. pertussis DNA (PCR) Not detected, Coronavirus OC43 (PCR) Not detected, Coronavirus HKU1 (PCR) Not detected, Coronavirus 229E (PCR) Not detected, SARS-CoV-2 (PCR) Not detected, Coronavirus NL63 (PCR) Not detected, Human Metapneumovir PCR Not detected, Influenza A (H1) PCR Not detected, Influ A (H1N1/09) PCR Not detected, Influenza A (H3) PCR Not detected, Influenza Type A (PCR) Not detected, Influenza Type B (PCR)
--- NOTE | 2020-06-29 16:08 | PC.NURSE ---
Addendum entered by Miranda Singh RN 06/29/20 16:08: They reported to have taken 4,900ml of fluid during paracentesis. MD Rivera notified Original Note: pt back from radiology
[2020-06-29 16:45] LABS: Appearance,Body Fld. Normal; Source, Body Fld. Paracentesis Fluid
[2020-06-29 16:46] LABS: RBC,Body Fluid < 10 cells/uL (< 10 X 10^3); TNC,Body Fluid 115 cells/uL (< 1000); Volume,Body Fld. 4900 mL
--- NOTE | 2020-06-29 17:10 | PC.NURSE ---
betty called to ask if pt was a&o to see what room to put him in
--- NOTE | 2020-06-29 17:15 | PC.NURSE ---
called to pt a regular tray
--- NOTE | 2020-06-29 17:45 | PC.NURSE ---
report called to Tiffanie Zuniga RN on 2nd floor.
--- NOTE | 2020-06-29 18:00 | PC.NURSE ---
Pt arrived to the floor at this time.
[2020-06-29 18:32] LABS: Mononuclear WBCs,Body Fluid 94 %; Polynuclear WBC,Body Fluid 6 %
--- NOTE | 2020-06-29 20:07 | HMH.HP ---
*Admission Date: 06/29/20 *Chief complaint: abd swelling *History of present illness: this patient presented to ed after seeing pcp-he has distented abd and sob - remote hx of etoh and untreated hep c -The patient is sent from Dr. Al's office. He reports swelling of the abdomen and legs for 1 month, worsening over the past week. Weight gain. Shortness of breath. States that he was diagnosed with cirrhosis 2 years ago. Former drinker and smoker, quit both 4 years ago. He states Dr. Al was concerned about his heart, congestive heart failure, and he is sent to the emergency department for work-up and for admission. pt was found to have sig ascites and had paracentesis and was admitted [facility] History I have reviewed the patient's past medical history: Yes Medical History: Reports:: Anxiety, Hypertension Denies:: Diabetes Mellitus Type 2 *Have you ever received a pneumonia vaccine?: No *Have you received a flu vaccine this season?: No Other Surgeries: Yes: No Previous Surgery, Other Amputation: No Fractures: No - *Social History Smoking Status: Current every day smoker Tobacco Type: cigarettes # Packs/Day (cigarettes): 1 Alcohol Intake: never Alcohol Intake Frequency:: other Substance Use Type: denies use *Occupational Status:: retired Housing: house Household Members: family *Travel in the last 8 weeks: Inside the [place] - Psychiatric History Pschychiatric History:: Reports:: Anxiety Family Hx:: Coronary Artery Disease, Heart Attack, Stroke, Cancer Review of Systems - Review of Systems Review of systems:: pertinent systems reviewed and negative unless documented below - Constitutional Denies fever(s) - Eyes Denies change in vision - ENT Denies nosebleed, Denies throat swelling - *Cardiovascular Denies chest pain - *Respiratory Reports shortness of breath, Denies cough - *Gastrointestinal Reports abdominal pain, Reports other (distended ) - *Genitourinary Denies blood in urine - *Musculoskeletal Denies joint swelling - Integumentary/Breasts Denies rash - *Neurologic Denies seizure-like activity, Denies seizure-like activity - Psychiatric Denies anxiety Meds Home Medications Medication Instructions Recorded Confirmed Type No Known Home Medications 02/04/20 06/29/20 History Allergies Allergy/AdvReac Type Severity Reaction Status Date / Time No Known Allergies Allergy Verified 06/29/20 10:56 Exam Vital signs and Labs for Last 24 Hours: Temp Pulse Resp BP Pulse Ox 97.9 F 66 18 148/78 H 97 06/29/20 18:15 06/29/20 18:15 06/29/20 18:15 06/29/20 18:15 06/29/20 18:15 Laboratory Results - last 24 hr 06/29/20 12:20: Chlamy pneumoniae PCR Not detected, Adenovirus (PCR) Not detected, B. pertussis DNA (PCR) Not detected, Coronavirus OC43 (PCR) Not detected, Coronavirus HKU1 (PCR) Not detected, Coronavirus 229E (PCR) Not detected, SARS-CoV-2 (PCR) Not detected, Coronavirus NL63 (PCR) Not detected, Human Metapneumovir PCR Not detected, Influenza A (H1) PCR Not detected, Influ A (H1N1/09) PCR Not detected, Influenza A (H3) PCR Not detected, Influenza Type A (PCR) Not detected, Influenza Type B (PCR) Not detected, M. pneumoniae (PCR) Not detected, Parainfluenza 1 (PCR) Not detected, Parainfluenza 2 (PCR) Not detected, Parainfluenza 3 (PCR) Not detected, Parainfluenza 4 (PCR) Not detected, RSV (PCR) Not detected, Entero/Rhino (PCR) Not detected 06/29/20 12:44: WBC 5.6, RBC 4.62, Hgb 15.9, Hct 45.2, MCV 98.0 H, MCH 34.4 H, MCHC 35.1, RDW 13.7, Plt Count 102 L, MPV 9.6, Neut % (Auto) 69.9, Lymph % (Auto) 16.8, Trigg % (Auto) 5.4, Eos % (Auto) 7.3, Baso % (Auto) 0.7, Neut # (Auto) 3.9, Lymph # (Auto) 0.9, Trigg # (Auto) 0.3, Eos # (Auto) 0.4, Baso # (Auto) 0.0 06/29/20 12:44: Sodium 139, Potassium 3.6, Chloride 106, Carbon Dioxide 27, Anion Gap 9.6, BUN 11, Creatinine 0.60 L, Estimated Creat Clear 3, Estimated GFR 135, Est GFR ( Amer) 164, Glucose 101 H, Calcium 9.2
[2020-06-30] VITALS: PULSE 60
[2020-06-30 04:00] VITALS: BP 120/64; PULSE 65; PULSE 70; RESP 16; TEMP 36.6; O2SAT 97
--- NOTE | 2020-06-30 04:34 | PC.NURSE ---
NO ACUTE CHANGES THIS SHIFT. ON REASSESSMENT, PT REMAINS A&O X4. NO ABDOMINAL DISCOMFORT BUT ABDOMEN REMAINS DISTENDED. BANDAID CDI ON DRAINAGE SITE. IV IS SALINE LOCKED AND FLUSHES WELL. VSS AND PATIENT IS AFEBRILE. PAIN CONTROLLED AT THIS TIME. LUNGS ARE CTAB AND BOWEL SOUNDS ARE NORMOACTIVE. WILL CONTINUE TO MONITOR.
[2020-06-30 05:15] VITALS: BMI 27.0
--- NOTE | 2020-06-30 06:42 | PC.NURSE ---
ALL CARE AND CHARTING UNDER MY SUPERVISION
[2020-06-30 07:01] LABS: Blood Urea Nitrogen 11 mg/dl (9-20); Calcium 8.5 mg/dl (8.4-10.2); Carbon Dioxide 23 mmol/L (22.0-30.0); Chloride 108 mmol/L (98-107); Creatinine Clearance Estimated 91 mL/min (50-200); Estimated Glomerular Filt Rate 135 ml/min (>60); GFR (African American) 164 ML/MIN (>60); Glucose 85 mg/dl (74-100); Sodium 136 mmol/L (136-145)
--- NOTE | 2020-06-30 07:22 | P.CONPHA_ITS ---
[facility] Pharmacy VTE Monitoring - Patient Demographics Admission date: 06/30/20 Report Date: 06/30/20 Time: 07:22 Allergies/Adverse Reactions: Patient Allergies No Known Allergies Allergy (Verified 06/29/20 10:56) Height: 1.8 m Weight: 87.543 kg Patient Problems: Current Active Problems Cirrhosis (Acute) Edema (Acute) Ascites (Acute) Abdominal pain (Acute) Chest pain (Acute) Dyspnea (Acute) - VTE Risk Labs: VTE Related Lab Results Hgb 15.9 g/dL (14.1-18.0) 06/29/20 12:44 Hct 45.2 % (42.0-52.0) 06/29/20 12:44 Plt Count 102 K/mm3 (142-424) L 06/29/20 12:44 PT 14.0 seconds (10.1-12.5) H 06/29/20 12:44 INR 1.20 (0.9-1.1) H 06/29/20 12:44 BUN 11 mg/dl (9-20) 06/30/20 06:32 Creatinine 0.60 mg/dl (0.66-1.25) L 06/30/20 06:32 Estimated Creat Clear 91 mL/min (50-200) 06/30/20 06:32 Was VTE Risk Assessment Performed: Yes VTE Score: 3 VTE Risk Level: Low Risk Clinical Trial Participant: No - Prophylaxis VTE Prophylaxis Ordered?: Yes Types of VTE Prophylaxis: TEDS Knee High
[2020-06-30 07:42] VITALS: BP 129/81; PULSE 71; RESP 20; TEMP 36.7; O2SAT 96
[2020-06-30 08:00] VITALS: PULSE 70
[2020-06-30 12:00] VITALS: PULSE 90
[2020-06-30 12:04] LABS: Albumin Level 3.2 g/dl (3.5-5.0)
[2020-06-30 12:07] LABS: Ammonia 23 umol/L (9-30)
[2020-06-30 12:22] VITALS: BMI 27.1
[2020-06-30 12:48] VITALS: BP 137/83; PULSE 78; RESP 20; TEMP 36.7; O2SAT 99
--- NOTE | 2020-06-30 12:48 | HMH.DCSUM ---
General - General Admission date:: 06/29/20 Discharge date: 06/30/20 HPI HPI: this patient presented to ed after seeing pcp-he has distented abd and sob - remote hx of etoh and untreated hep c -The patient is sent from Dr. Al's office. He reports swelling of the abdomen and legs for 1 month, worsening over the past week. Weight gain. Shortness of breath. States that he was diagnosed with cirrhosis 2 years ago. Former drinker and smoker, quit both 4 years ago. He states Dr. Al was concerned about his heart, congestive heart failure, and he is sent to the emergency department for work-up and for admission. pt was found to have sig ascites and had paracentesis and was admitted Hospital Course Hospital Course: this patient presented to ed after seeing pcp-he has distented abd and sob - remote hx of etoh and untreated hep c -The patient is sent from Dr. Al's office. He reports swelling of the abdomen and legs for 1 month, worsening over the past week. Weight gain. Shortness of breath. States that he was diagnosed with cirrhosis 2 years ago. Former drinker and smoker, quit both 4 years ago[address] He states Dr. Al was concerned about his heart, congestive heart failure, and he is sent to the emergency department for work-up and for admission. pt was found to have sig ascites and had paracentesis and was admitted 06/29/20 CXR: FINDINGS: This is a poor inspiration. There is minimal right basilar discoid atelectasis. The right mid and upper lung field and left lung shaw are clear. There is no definite pleural fluid. Cardiac size is normal and vascularity is normal. IMPRESSION: Poor inspiration with minimal right basilar atelectasis Dictated by: Joe, 06/29/20 ECHO: Conclusion 1. Normal left ventricular size, mild concentric left ventricular hypertrophy, visually estimated ejection fraction 55% with no regional wall motion abnormality, grade 1 diastolic dysfunction seen without tissue Doppler evidence of raise left atrial pressure. 2. Trace mitral and tricuspid regurgitation. 3. No significant pericardial effusion noted. Electronically signed by : Hayden Anthony, 06/29/20 CT Abd/Pelvis: IMPRESSION: Advanced cirrhotic changes of the liver with a massive amount of abdominal ascites representing the most significant change from the previous study a probable portal hypertension. 1. Nonobstructing calculus lower pole right kidney Dictated by: Joe, 06/29/20 Thoracentesis: TECHNIQUE: Informed consent was obtain prior to procedure. After appropriate Time out, under aseptic conditions and local anesthesia with 1% buffered lidocaine using sonographic guidance a 6 [place] Blrl-O-Ggjhnghh catheter was inserted into the largest pocket of fluid localized in the right lower quadrant. Approximately 4900 mL serosanguineous fluid was drained. The patient tolerated the procedure well and left the radiology suite in stable condition. FINDINGS: Diffuse ascites IMPRESSION: Successful sonographic guided paracentesis without complication. Dictated by: Vincenzo, Cardiology has seen and recommends: 1. Patient presented to ED for abdominal distention and epigastric pain. Patient does have history of liver failure. Patient states he was diagnosed with cirrhosis of the liver 2 years ago. 2. Management of cirrhosis defer to PCP. 3. Obtain echocardiogram to assess LV function and valve status. 4. Pending on the results of the echocardiogram, changes to medication and treatment therapies may be recommended. 5. Please continue to monitor patient status. Please notify cardiology of any changes in patient status. He had 4900 ml removed during a paracentesis and tolerated well 64 YOM lying in bed, he reports feeling a lot better . Requesting to be discharged home. US and follow up appointments discussed, he is agreeable to all appointments and US. MELD Score 12
[2020-06-30 12:51] LABS: Prothrombin Time 14.2 seconds (10.1-12.5)
[2020-06-30 12:52] LABS: INR 1.22 (0.9-1.1)
[2020-07-01 14:12] LABS: Albumin, Body Fluid 0.4 g/dL (Not Estab.); Glucose, Body Fluid 100 mg/dL (.); LD, Body Fluid 49 IU/L (.); Protein, Body Fluid 1.2 g/dL (.)
[2020-07-01 14:12] LABS: AFP, Tumor Marker 7.6 ng/mL (0.0-8.3)
[2020-07-04 13:33] LABS: HCV Genotype Charge YES; Hepatitis C Genotype 1a (.)
== END 2020-06-30 14:30 | disposition home or self-care (01) ==
LOC: ER 12:32 → 2ND 17:28
PROVIDERS: Nurse Practitioner Family; Admitting Provider Emergency Medicine; Emergency Provider Emergency Medicine; PCP Emergency Medicine; Visit Provider Emergency Medicine
DX: K70.31 Alcoholic cirrhosis of liver with ascites (principal); B19.20 Unspecified viral hepatitis C without hepatic coma; K76.6 Portal hypertension; I50.31 Acute diastolic (congestive) heart failure; Z72.0 Tobacco use; I11.0 Hypertensive heart disease with heart failure; F10.21 Alcohol dependence, in remission
CPT/HCPCS: 36415; 49083; 71045; 74177; 80048; 80076; 82040; 82042; 82105; 82140; 82945; 83605; 83615; 83880; 84155; 84484; 85025; 85610; 87040; 87070; 87205; 87522; 87581; 87633; 87798; 87902; 89051; 93005; 93306; 99284; G0378

== ENCOUNTER → 2020-07-02 07:57 | Outpatient (CLI) | payer MEDICARE, OTHER, SELFPAY ==
--- NOTE | 2020-07-02 08:01 | US_ITS ---
PROCEDURE: US ABDOMEN COMPLETE CLINICAL INDICATION: Acites COMPARISON: CT CT ABDOMEN PELVIS W CON from 06/29/2020 FINDINGS: PANCREAS: Unremarkable. No obvious mass or abnormal fluid collection. No ductal dilatation LIVER: Liver is shrunken with coarse echogenicity and irregular margins consistent with cirrhosis. There is appropriate direction of blood flow within a non dilated portal vein. RIGHT KIDNEY: Unremarkable. Normal size and echogenicity. No hydronephrosis LEFT KIDNEY: Unremarkable. Normal size and echogenicity. No hydronephrosis GALLBLADDER: Gallbladder wall is thickened gallbladder wall edema. The gallbladder wall measures up to 7 mm in thickness. Gallstones are present. Common bile duct is normal at 3 mm. AORTA: No evidence of aneurysmal dilatation. SPLEEN: Mildly enlarged at 13 cm ASCITES: Moderate ascites IMPRESSION: 1. Cirrhotic appearing liver with ascites. Appropriate direction of blood flow within non dilated portal vein. 2. Cholelithiasis with nonspecific thickened gallbladder wall. 3. Borderline splenomegaly Dictated by: Gopal Loya MD 07/02/2020 16:55 Gopal Loya MD in [place] 07/02/2020 16:55
== END ==
PROVIDERS: PCP Emergency Medicine; Visit Provider Nurse Practitioner Family
DX: R18.8 Other ascites (principal)
CPT/HCPCS: 76700

== ENCOUNTER → 2020-07-07 17:49 | Outpatient (CLI) | payer MEDICARE, OTHER, SELFPAY ==
[2020-07-07 18:08] LABS: Basophils # 0.1 K/mm3 (0-0.2); Basophils % 0.7 % (0.1-2.0); Eosinophils # 0.4 K/mm3 (0.0-0.4); Eosinophils % 6.5 % (0.1-12.0); Hematocrit 45.1 % (42.0-52.0); Hemoglobin 15.2 g/dL (14.1-18.0); Lymphocytes % 16.2 % (10-50); Mean Corpuscular HGB Conc 33.6 g/dL (31.8-35.4); Mean Corpuscular Hemoglobin 33.8 pg (27.0-31.2); Mean Corpuscular Volume 100.5 fl (80-94); Mean Platelet Volume 10.5 fl (7.4-10.4); Monocytes # 0.4 K/mm3 (0.1-1.0); Monocytes % 6.1 % (1.7-9.3); Neutrophils # 4.5 K/mm3 (1.8-7.8); Neutrophils % 70.5 % (37.0-80.0); Platelet Count 100 K/mm3 (142-424); Red Blood Count 4.48 M/mm3 (4.60-6.20); Red Cell Distribution Width 13.8 % (11.5-17.5); White Blood Count 6.4 K/mm3 (4.8-10.8)
[2020-07-07 18:34] LABS: 25-OH Vitamin D, Total 30.6 ng/mL (30-100)
[2020-07-07 19:19] LABS: Hemoglobin A1C 4.8 % (4.0-6.0)
[2020-07-07 19:21] LABS: Alanine Aminotransferase 84 U/L (12-78); Albumin Level 3.4 g/dl (3.5-5.0); Albumin/Globulin Ratio 0.9 (1.1-1.8); Alkaline Phosphatase 136 U/L (38-126); Anion Gap 12.3 mEq/L (5-15); Aspartate Amino Transferase 102 U/L (17-59); Bilirubin,Total 2.5 mg/dl (0.2-1.3); Blood Urea Nitrogen 15 mg/dl (9-20); Carbon Dioxide 24 mmol/L (22.0-30.0); Chloride 107 mmol/L (98-107); Chol/HDL Ratio 2.9 (1-3.5); Cholesterol 146 mg/dl (140-200); Estimated Glomerular Filt Rate 113 ml/min (>60); GFR (African American) 137 ML/MIN (>60); Globulin 3.6 g/dL (1.3-3.2); Glucose 139 mg/dl (74-100); HDL Cholesterol 50 mg/dl (40-60); Potassium 4.3 mmoL/L (3.5-5.1); Sodium 139 mmol/L (136-145); Triglycerides 65 mg/dl (30-150); VLDL Cholesterol 13 mg/dL (0-40)
[2020-07-07 19:33] LABS: Direct LDL Cholesterol 65.82 mg/dL (100-129)
[2020-07-07 19:38] LABS: T4 (Thyroxine) 9.6 ug/dl (5.53-11.0)
[2020-07-13 16:49] LABS: Alanine Aminotransferase 82 U/L (12-78); Albumin Level 3.4 g/dl (3.5-5.0); Alkaline Phosphatase 141 U/L (38-126); Aspartate Amino Transferase 101 U/L (17-59); Bilirubin,Direct 0.8 mg/dl (0.0-0.4); Bilirubin,Indirect 1.7 mg/dL (0.0-0.9); Bilirubin,Total 2.5 mg/dl (0.2-1.3); Bilirubin,Unconjugated 1.7 mg/dL (0.0-1.1)
== END ==
PROVIDERS: Visit Provider Nurse Practitioner Family
DX: E55.9 Vitamin D deficiency, unspecified (principal); I51.7 Cardiomegaly; R53.83 Other fatigue; R73.03 Prediabetes; H11.30 Conjunctival hemorrhage, unspecified eye; R60.9 Edema, unspecified; E66.3 Overweight; R79.89 Other specified abnormal findings of blood chemistry
CPT/HCPCS: 80053; 80061; 80076; 82306; 83036; 84436; 84443; 85025

== ENCOUNTER → 2020-07-12 11:49 | Outpatient (POV) | payer MEDICARE, OTHER, SELFPAY | PROVIDERS: Visit Provider Nurse Practitioner Family | DX: Z00.00 Encounter for general adult medical examination without abnormal findings (principal) ==

== ENCOUNTER 2020-07-14 12:19 | Outpatient (CLI) | payer MEDICARE, OTHER, SELFPAY ==
--- NOTE | 2020-07-14 12:25 | US_ITS ---
PROCEDURE: US PARACENTESIS CLINICAL INDICATION: ASCITES,CIRRHOSIS, Shortness of breath, abdominal distension COMPARISON: No exams were available for comparison TECHNIQUE: Informed consent was obtain prior to procedure. After appropriate Time out, under aseptic conditions and local anesthesia with 1% buffered lidocaine using sonographic guidance a 6 [place]ian Jwoz-K-Lhixevxb catheter was inserted into the largest pocket of fluid localized in the right lower quadrant. Approximately 6900 mL of serous fluid was drained. The patient tolerated the procedure well and left the radiology suite in stable condition. FINDINGS: Ascites IMPRESSION: Successful sonographic guided paracentesis without complication. Dictated by: Gopal Loya MD 07/14/2020 17:54 Gopal Loya MD in [facility] 07/14/2020 17:54
[2020-07-14 14:10] VITALS: BP 128/78; PULSE 68; RESP 18; TEMP 36.4; O2SAT 99
[2020-07-14 15:40] VITALS: BP 125/72; PULSE 66; RESP 18
== END 2020-07-14 15:40 | disposition home or self-care (01) ==
PROVIDERS: PCP Emergency Medicine; Visit Provider Nurse Practitioner Family
DX: K74.60 Unspecified cirrhosis of liver (principal); R18.8 Other ascites; B18.2 Chronic viral hepatitis C
CPT/HCPCS: 49083; 96365; P9047

== ENCOUNTER → 2020-07-20 16:13 | Outpatient (CLI) | payer MEDICARE, OTHER, SELFPAY ==
--- NOTE | 2020-07-20 16:22 | XR_ITS ---
PROCEDURE: XR CHEST 2V CLINICAL HISTORY: elevated alkaline phos. COMPARISON: CR CXR2V XR chest 2V from 07/28/2017 CR XR CHEST 2V from 11/29/[address] ANGIO CHEST from 11/29/2018 CR XR CHEST PORTABLE from 06/29/2020 FINDINGS: The cardiomediastinal silhouette and pulmonary vascularity are within normal limits. There is evidence of old granulomatous disease. No lobar consolidation or collapse. No acute bony abnormalities. IMPRESSION: No change with no acute finding Dictated by: Gopal Loya MD 07/20/2020 17:24 Gopal Loya MD in [facility] 07/20/2020 17:24
[2020-07-20 17:58] LABS: Basophils # 0.1 K/mm3 (0-0.2); Basophils % 0.9 % (0.1-2.0); Eosinophils # 0.4 K/mm3 (0.0-0.4); Eosinophils % 5.7 % (0.1-12.0); Hematocrit 45.6 % (42.0-52.0); Hemoglobin 15.7 g/dL (14.1-18.0); Lymphocytes % 13.1 % (10-50); Mean Corpuscular HGB Conc 34.4 g/dL (31.8-35.4); Mean Corpuscular Hemoglobin 33.7 pg (27.0-31.2); Mean Platelet Volume 9.5 fl (7.4-10.4); Monocytes # 0.4 K/mm3 (0.1-1.0); Monocytes % 5.4 % (1.7-9.3); Neutrophils # 5.5 K/mm3 (1.8-7.8); Platelet Count 128 K/mm3 (142-424); Red Blood Count 4.65 M/mm3 (4.60-6.20); Red Cell Distribution Width 13.8 % (11.5-17.5); White Blood Count 7.3 K/mm3 (4.8-10.8)
[2020-07-20 18:09] LABS: INR 1.16 (0.9-1.1); Prothrombin Time 13.5 seconds (10.1-12.5)
[2020-07-20 19:34] LABS: Chloride 97 mmol/L (98-107); Potassium 4.1 mmoL/L (3.5-5.1); Sodium 135 mmol/L (136-145)
[2020-07-20 19:37] LABS: Alanine Aminotransferase 90 U/L (12-78); Albumin Level 4.2 g/dl (3.5-5.0); Albumin/Globulin Ratio 1.1 (1.1-1.8); Alkaline Phosphatase 157 U/L (38-126); Anion Gap 14.1 mEq/L (5-15); Aspartate Amino Transferase 115 U/L (17-59); Blood Urea Nitrogen 14 mg/dl (9-20); Calcium 9.9 mg/dl (8.4-10.2); Carbon Dioxide 28 mmol/L (22.0-30.0); Estimated Glomerular Filt Rate 113 ml/min (>60); GFR (African American) 137 ML/MIN (>60); Globulin 3.9 g/dL (1.3-3.2); Glucose 95 mg/dl (74-100); Iron 168 ug/dL (49-181); Total Protein,Serum 8.1 g/dl (6.3-8.2)
[2020-07-20 19:47] LABS: Total Iron Binding Capacity 224 ug/dL (261-462)
[2020-07-20 20:13] LABS: Ferritin 458 ng/ml (17.9-464)
[2020-07-22 12:43] LABS: Ceruloplasmin 34.1 mg/dL (16.0-31.0); Immunoglobulin G, Qn 2005 mg/dL (603-1613)
[2020-07-22 15:11] LABS: Angiotensin Converting Enzyme 83 U/L (14-82)
[2020-07-23 06:18] LABS: PSA, Free 0.13 ng/mL; Prostate Specific Ag 0.5 ng/mL (0.0-4.0)
[2020-07-23 06:18] LABS: Actin (Smooth Muscle) Antibody 7 Units (0-19); Endomysial IgA Antibody Negative (Negative); Immunoglobulin A, Qn 909 mg/dL (61-437); Immunoglobulin M, Qn 109 mg/dL (20-172); Mitochondrial (M2) Antibody <20.0 Units (0.0-20.0)
[2020-07-23 06:19] LABS: Deamidated Gliadin Abs, IgA 12 units (0-19); Deamidated Gliadin Abs, IgG 3 units (0-19); Tissue Transglutaminase IgA Ab <2 U/mL (0-3); Tissue Transglutaminase IgG Ab 3 U/mL (0-5)
[2020-07-23 18:01] LABS: Reticulin IgA Antibody Negative titer (Neg:<1:2.5)
[2020-07-26 11:08] LABS: Alpha-1-Antitrypsin 184 mg/dL (101-187)
[2020-07-27 12:46] LABS: ALT (SGPT) P5P 81 IU/L (0-55); AST (SGOT) P5P 104 IU/L (0-40); Alpha 2-Macroglobulins, Qn 300 mg/dL (110-276); Apolipoprotein A-1 138 mg/dL (101-178); Bilirubin, Total 1.1 mg/dL (0.0-1.2); Cholesterol, Total 158 mg/dL (100-199); Fibrosis Score 0.87 (0.00-0.21); GGT 85 IU/L (0-65); Glucose 88 mg/dL (65-99); Haptoglobin 34 mg/dL (32-363); Steatosis Grade S1 - Mild Steatosis (.); Steatosis Score 0.48 (0.00-0.30); Triglycerides 73 mg/dL (0-149)
[2020-07-29 17:58] LABS: Antinuclear Antibodies (ANA) NEGATIVE
== END ==
PROVIDERS: Nurse Practitioner Family; PCP Emergency Medicine; Visit Provider Nurse Practitioner Family
DX: R74.8 Abnormal levels of other serum enzymes (principal); Z12.5 Encounter for screening for malignant neoplasm of prostate; B18.2 Chronic viral hepatitis C; K74.60 Unspecified cirrhosis of liver; R18.8 Other ascites
CPT/HCPCS: 36415; 71046; 80053; 81256; 82103; 82104; 82164; 82390; 82728; 82784; 83516; 83540; 83550; 84153; 84154; 85025; 85610; 86038; 86255; 86256; 87522

== ENCOUNTER → 2020-07-26 09:56 | Outpatient (CLI) | payer MEDICARE, OTHER, SELFPAY | PROVIDERS: PCP Emergency Medicine; Visit Provider Nurse Practitioner Family | DX: R18.8 Other ascites (principal); K74.60 Unspecified cirrhosis of liver; B18.2 Chronic viral hepatitis C ==

== ENCOUNTER 2020-08-02 10:02 | Outpatient (CLI) | payer MEDICARE, OTHER, SELFPAY ==
--- NOTE | 2020-08-02 10:09 | US_ITS ---
PROCEDURE: US PARACENTESIS CLINICAL INDICATION: ASCITES COMPARISON: No exams were available for comparison TECHNIQUE: Informed consent was obtain prior to procedure. After appropriate Time out, under aseptic conditions and local anesthesia with 1% buffered lidocaine using sonographic guidance a 6 Irish Dgbe-J-Wgoigxmu catheter was inserted into the largest pocket of fluid localized in the right lower quadrant. 6700 mL of serous fluid was drained. The patient tolerated the procedure well and left the radiology suite in stable condition. FINDINGS: Diffuse ascites IMPRESSION: Successful sonographic guided paracentesis without complication. Dictated by: Gopal Loya MD 08/03/2020 06:02 Gopal Loya MD in [facility] 08/03/2020 06:02
[2020-08-02 12:05] VITALS: BP 124/74; PULSE 71; RESP 18; TEMP 36.4; O2SAT 98
[2020-08-02 13:45] VITALS: BP 113/67; PULSE 75; RESP 18
== END 2020-08-02 13:45 | disposition home or self-care (01) ==
LOC: RAD 10:04 → INF 11:12
PROVIDERS: PCP Emergency Medicine; Visit Provider Nurse Practitioner Family
DX: R18.8 Other ascites (principal); K74.60 Unspecified cirrhosis of liver; B18.2 Chronic viral hepatitis C
CPT/HCPCS: 49083; 96365; 96366; P9047

== ENCOUNTER 2020-08-16 15:08 | Emergency (ER) | payer MEDICARE, MEDICAID, SELFPAY ==
[2020-08-16 15:14] VITALS: BP 135/102; PULSE 85; RESP 20; TEMP 36.6; O2SAT 98; BMI 26.4
--- NOTE | 2020-08-16 15:20 | CT_ITS ---
PROCEDURE INFORMATION: Exam: CT Abdomen And Pelvis With Contrast Exam date and time: 08/16/2020 3:20 PM Age: 64 years old Clinical indication: Abdominal pain; Generalized; Patient HX: PT was diagnosed with a inguinal hernia and is having pain TECHNIQUE: Imaging protocol: Computed tomography of the abdomen and pelvis with contrast. Radiation optimization: All CT scans at this facility use at least one of these dose optimization techniques: automated exposure control; mA and/or kV adjustment per patient size (includes targeted exams where dose is matched to clinical indication); or iterative reconstruction. Contrast material: ISOVUE; Contrast volume: 75 ml; Contrast route: IV; COMPARISON: CT ABDOMEN PELVIS W CON 06/29/2020 1:54 PM FINDINGS: Lungs: Scarring/atelectasis at the lung bases without acute findings. Liver: The liver has a nodular contour and there is relative hypertrophy of the caudate lobe, consistent with cirrhosis. The liver demonstrates punctate calcifications, consistent with remote granulomatous organism exposure. Gallbladder and bile ducts: Multiple calcified gallstones are present. There is no evidence of biliary ductal dilation. Pancreas: Normal. No ductal dilation. Spleen: There is nonspecific splenomegaly, measuring 16 cm. The spleen demonstrates punctate calcifications, consistent with remote granulomatous organism exposure. Adrenal glands: Stable 2.5 cm right adrenal nodule with punctate calcifications. Consider correlation with nonemergent adrenal protocol CT or MRI if clinically warranted. Kidneys and ureters: Stable 6 mm nonobstructive stone in the lower pole of the right kidney. The right kidney is otherwise unremarkable. The right ureter is normal. The left ureter is normal. The left kidney is normal. Stomach and bowel: No bowel wall thickening, obstruction, or other acute pathology. Diffuse colonic diverticulosis is present. Appendix: A normal appendix is identified. Intraperitoneal space: Omental varices. Large volume diffuse abdominopelvic ascites. Vasculature: The vasculature demonstrates diffuse moderate atherosclerotic calcification. Perigastric varices. Perisplenic varices. Lymph nodes: Unremarkable. No enlarged lymph nodes. Urinary bladder: Unremarkable as visualized. Reproductive: The prostate demonstrates mild nonspecific enlargement. The seminal vesicles are normal. Bones/joints: No acute skeletal pathology. Mild multilevel degenerative changes of the spine, as manifested by multilevel anterior osteophytes and multilevel decrease in intervertebral disc space. Soft tissues: Fat and ascites containing moderately sized right inguinal hernia. There is a nonobstructing left inguinal hernia. Other findings: Periesophageal varices. IMPRESSION: 1. Stable cirrhosis and severely decompensated portal hypertension, as manifested by large volume abdominopelvic ascites. 2. Incidental findings as detailed above.
--- NOTE | 2020-08-16 15:30 | PC.NURSE ---
Finished with contrast
--- NOTE | 2020-08-16 15:47 | HMH.EDGENADL ---
ED Disposition Clinical Impression: Portal hypertension Cirrhosis Qualifiers: Hepatic cirrhosis type: alcoholic cirrhosis Ascites presence: with ascites Qualified Code(s): K70.31 - Alcoholic cirrhosis of liver with ascites Ascites Qualifiers: Ascites type: due to alcoholic cirrhosis Qualified Code(s): K70.31 - Alcoholic cirrhosis of liver with ascites Disposition: Home, Self-Care Condition on Discharge: Good Instructions: DI for Ascites Referrals: Ced Al MD [Primary Care Provider] - - Critical Care Critical Care Time: No Attestation: On 08/16/20, the high probability of a clinically significant, sudden or life threatening deterioration of the following system(s) required my full and direct attention, intervention and personal management. The time I documented below is in addition to time spent performing reported procedures but includes the following listed in this critical care notation. Medical Decision Making - Medical Records Medical records reviewed: Yes: I reviewed the patient's medical records. - Blaze Inquiry Pt receiving controlled substance: Yes Blaze was queried for this patient: No Reason not queried -: Emergent pt cond-no time Risks and benefits of using a controlled substance: were discussed with pt by me Vital Signs: 08/16/20 15:14 Temperature 97.9 F Temperature Source Oral Pulse Rate [Left Radial] 85 Respiratory Rate 20 Blood Pressure [Right Arm] 135/102 H Blood Pressure Mean [Right Arm] 113 Blood Pressure Source [Right Arm] Automatic Cuff Blood Pressure Position [Right Arm] Sitting 02 Sat by Pulse Oximetry 98 Oxygen Delivery Method Room Air - Lab Data Lab Results 08/16/20 15:40: WBC 7.8, RBC 4.50 L, Hgb 15.2, Hct 44.3, MCV 98.5 H, MCH 33.8 H, MCHC 34.4, RDW 14.2, Plt Count 120 L, MPV 8.5, Neut % (Auto) 76.3, Lymph % (Auto) 10.8, Carbon % (Auto) 7.2, Eos % (Auto) 4.7, Baso % (Auto) 1.0, Neut # (Auto) 6.0, Lymph # (Auto) 0.9, Carbon # (Auto) 0.6, Eos # (Auto) 0.4, Baso # (Auto) 0.1 08/16/20 15:40: Sodium 132 L, Potassium 3.6, Chloride 98, Carbon Dioxide 26, Anion Gap 11.6, BUN 15, Creatinine 0.80, Estimated Creat Clear 90, Estimated GFR 97, Est GFR ( Amer) 117, Glucose 89, Calcium 9.3, Total Bilirubin 2.6 H, AST 94 H, ALT 62, Alkaline Phosphatase 118, Total Protein 7.6, Albumin 3.8, Globulin 3.8 H, Albumin/Globulin Ratio 1.0 L, Lipase 542 H Result diagrams: 08/16/20 15:40 08/16/20 15:40 Orders (Tests/Meds): ED MEDICATIONS Discontinued Medications Generic Name Dose Route Start Last Admin Trade Name Freq PRN Reason Stop Dose Admin Diatrizoate Meglum/Diatrizoate Sod 30 ml 08/16/20 15:20 08/16/20 15:54 Diatrizoate Radha 66% & Diatrizoate Na 10% 30ml Udc PO 08/16/20 15:21 30 ml ONCE ONE Administration Iopamidol 75 ml 08/16/20 17:11 08/16/20 17:12 Iopamidol-370 (76%);100ml Bottle IV 08/16/20 17:12 75 ml ONCE ONE Administration Morphine Sulfate 4 mg 08/16/20 15:29 08/16/20 15:57 Morphine 4mg/Ml Syringe IV 08/16/20 15:30 4 mg ONCE ONE Administration Ondansetron HCl 4 mg 08/16/20 15:29 08/16/20 15:57 Ondansetron 4mg/2ml Vial IV 08/16/20 15:30 4 mg ONCE ONE Administration Sodium Chloride 10 ml 08/16/20 17:11 08/16/20 17:12 Sodium Chloride 0.9% 10ml Syr (Rad Only) IV 08/16/20 17:12 10 ml ONCE ONE Administration - CT Data CT Scan: Abdomen, Pelvis Time Received: 18:[address] Reviewed: Yes: I have reviewed the patient's CT results, I have viewed the radiologist's interpretation Findings Narrative: FINDINGS: Lungs: Scarring/atelectasis at the lung bases without acute findings. Liver: The liver has a nodular contour and there is relative hypertrophy of the caudate lobe, consistent with cirrhosis. The liver demonstrates punctate calcifications, consistent with remote granulomatous organism exposure. Gallbladder and bile ducts: Multiple calcified gallstones are present. There is no evidenc
[2020-08-16 16:12] LABS: Basophils # 0.1 K/mm3 (0-0.2); Eosinophils # 0.4 K/mm3 (0.0-0.4); Eosinophils % 4.7 % (0.1-12.0); Hematocrit 44.3 % (42.0-52.0); Hemoglobin 15.2 g/dL (14.1-18.0); Lymphocytes # 0.9 K/mm3 (0.7-4.5); Lymphocytes % 10.8 % (10-50); Mean Corpuscular HGB Conc 34.4 g/dL (31.8-35.4); Mean Corpuscular Hemoglobin 33.8 pg (27.0-31.2); Mean Corpuscular Volume 98.5 fl (80-94); Mean Platelet Volume 8.5 fl (7.4-10.4); Monocytes # 0.6 K/mm3 (0.1-1.0); Monocytes % 7.2 % (1.7-9.3); Neutrophils % 76.3 % (37.0-80.0); Platelet Count 120 K/mm3 (142-424); Red Cell Distribution Width 14.2 % (11.5-17.5); White Blood Count 7.8 K/mm3 (4.8-10.8)
[2020-08-16 16:22] LABS: Chloride 98 mmol/L (98-107); Potassium 3.6 mmoL/L (3.5-5.1); Sodium 132 mmol/L (136-145)
[2020-08-16 16:24] LABS: Alanine Aminotransferase 62 U/L (12-78); Aspartate Amino Transferase 94 U/L (17-59); Blood Urea Nitrogen 15 mg/dl (9-20); Creatinine Clearance Estimated 90 mL/min (50-200); Estimated Glomerular Filt Rate 97 ml/min (>60); GFR (African American) 117 ML/MIN (>60)
[2020-08-16 16:25] LABS: Albumin Level 3.8 g/dl (3.5-5.0); Alkaline Phosphatase 118 U/L (38-126); Anion Gap 11.6 mEq/L (5-15); Bilirubin,Total 2.6 mg/dl (0.2-1.3); Calcium 9.3 mg/dl (8.4-10.2); Carbon Dioxide 26 mmol/L (22.0-30.0); Globulin 3.8 g/dL (1.3-3.2); Glucose 89 mg/dl (74-100); Lipase 542 U/L (23-300); Total Protein,Serum 7.6 g/dl (6.3-8.2)
--- NOTE | 2020-08-16 16:47 | PC.NURSE ---
Pt taken to CT
[2020-08-16 18:44] VITALS: BP 129/86; PULSE 68; RESP 20; TEMP 36.6; O2SAT 99
[2020-08-16 18:48] VITALS: BP 130/87; PULSE 65; RESP 16; TEMP 36.7; O2SAT 98
== END 2020-08-16 18:46 | disposition home or self-care (01) ==
PROVIDERS: Emergency Provider Emergency Medicine; PCP Emergency Medicine
DX: K76.6 Portal hypertension (principal); K70.31 Alcoholic cirrhosis of liver with ascites; R18.8 Other ascites; F41.9 Anxiety disorder, unspecified; Z87.891 Personal history of nicotine dependence; Z79.899 Other long term (current) drug therapy
CPT/HCPCS: 74177; 80053; 83690; 85025; 96374; 96375; 99282; J2405; Q9967

== ENCOUNTER 2020-08-17 09:55 | Outpatient (CLI) | payer MEDICARE, MEDICAID, SELFPAY ==
--- NOTE | 2020-08-17 10:07 | US_ITS ---
PROCEDURE: US PARACENTESIS CLINICAL INDICATION: ASCITES COMPARISON: No exams were available for comparison FINDINGS: The procedure was explained to the patient and the informed consent was obtained after explanation of risks and benefits. The appropriate site was marked under ultrasound guidance. 1 percent lidocaine was administered locally in the right lower quadrant for local anesthesia. A 5 Kinyarwanda pigtail catheter was introduced into the right lower quadrant. 7100 mL of serous fluid was drained. The catheter was removed and the site was secured with bandage. Patient tolerated the procedure well. IMPRESSION: Successful ultrasound-guided paracentesis. Dictated by: Loly Kuhn 08/17/2020 15:24 Loly Kuhn in [place] 08/17/2020 15:24
[2020-08-17 12:10] VITALS: BP 125/79; PULSE 72; RESP 18; O2SAT 99
[2020-08-17 13:43] VITALS: BP 108/68; PULSE 64; RESP 18
== END 2020-08-17 13:43 | disposition home or self-care (01) ==
LOC: RAD 09:57 → INF 11:46
PROVIDERS: PCP Emergency Medicine; Visit Provider Nurse Practitioner Family
DX: R18.8 Other ascites (principal)
CPT/HCPCS: 49083; 96365; P9047

== ENCOUNTER → 2020-08-24 14:26 | Outpatient (CLI) | payer MEDICARE, MEDICAID, SELFPAY ==
[2020-08-24 16:57] LABS: Amphetamine/Metha Screen,Urine Negative ng/ml (<1000); Benzodiazepines Screen,Urine Negative ng/ml (<200)
[2020-08-24 16:58] LABS: Barbiturates Screen,Urine Negative ng/ml (<200); Cannabinoid Screen,Urine Negative ng/ml (<50)
[2020-08-24 16:59] LABS: Cocaine Screen,Urine Negative ng/ml (<300)
[2020-08-24 17:00] LABS: Methadone Screen,Urine Negative ng/ml (<300); Opiate Screen,Urine Negative ng/ml (<300)
[2020-08-24 17:01] LABS: Phencyclidine Screen,Urine Negative ng/ml (<25)
== END ==
PROVIDERS: Visit Provider Emergency Medicine
DX: Z79.899 Other long term (current) drug therapy (principal)
CPT/HCPCS: 80305

== ENCOUNTER 2020-09-01 10:01 | Outpatient (CLI) | payer MEDICARE, MEDICAID, SELFPAY ==
--- NOTE | 2020-09-01 10:05 | US_ITS ---
PROCEDURE: US PARACENTESIS CLINICAL INDICATION: ASCITES Abdominal pain and distension COMPARISON: No exams were available for comparison TECHNIQUE: Informed consent was obtain prior to procedure. After appropriate Time out, under aseptic conditions and local anesthesia with 1% buffered lidocaine using sonographic guidance a 6 Mohawk Yuyq-M-Pyukhtng catheter was inserted into the largest pocket of fluid localized in the right lower quadrant. Approximately 6300 mL of serous fluid was drained. The patient tolerated the procedure well and left the radiology suite in stable condition. FINDINGS: Prominent amount of ascites IMPRESSION: Successful sonographic guided paracentesis without complication. Dictated by: Gopal Loya MD 09/01/2020 13:38 Gopal Loya MD in [facility] 09/01/2020 13:38
[2020-09-01 11:50] VITALS: BP 118/68; PULSE 76; RESP 18; O2SAT 100
[2020-09-01 13:30] VITALS: BP 118/79; PULSE 66; RESP 18
== END 2020-09-01 13:30 | disposition home or self-care (01) ==
PROVIDERS: PCP Emergency Medicine; Visit Provider Nurse Practitioner Family
DX: R18.8 Other ascites (principal); K74.60 Unspecified cirrhosis of liver; B18.2 Chronic viral hepatitis C
CPT/HCPCS: 49083; 96365; P9047

== ENCOUNTER → 2020-09-03 11:19 | Outpatient (CLI) | payer MEDICARE, MEDICAID, SELFPAY ==
--- NOTE | 2020-09-03 | CA_ITS ---
APPROVED REPORT Exam: Pharmacologic Technologist: Yasmine Onofre, Ht: 5 ft 11 in Wt: 191 lbs BSA: 2.07 m2 HR: 69 bpm BP: 139/81 mmHg Rhythm: NSR Medical History Medications: Hydrocodone,,,,, Lasix,,,,, SpirOnolactone,,,,, Stress Test Details Test: LEXISCAN HR Resting HR: 74 bpm Max Heart Rate (APMHR): 155.215738 bpm Max HR Achieved: 96 bpm Target HR (85% APMHR): 131.632966 bpm % of APMHR: 61.94 Recovery HR: 94 bpm BP Resting BP: 139/81 mmHg Max BP: 145/86 mmHg Recovery BP: 147.0/92.0 mmHg ECG Resting ECG: NSR Recovery ST Deviation: 0 mm Clinical Reason for Termination: Completed Protocol Exercise duration: 04:01 min Highest Stage Achieved: Stress ECG Conclusion During the lexiscan pt experinced no symptoms, no arrythmias/ectopy, <1.5mm ST segment changes. Non Diagnostic lexiscan. Test Summary REST . . . . . . . Sitting REST 04:53 . . 74 . 139/ 81 . . Stage 1 01:00 . . 86 . . . . Stage 2 01:00 . . 83 . 145/ 86 . . Stage 3 01:00 . . 74 . 134/ 79 . . Stage 4 01:00 . . 82 . 140/ 86 . . Stage 4 01:01 . . 82 . 140/ 86 . Stop exercise at 04:01 RECOVERY 01:00 . . 88 . . . . RECOVERY 02:00 . . 85 . . . . RECOVERY 03:00 . . 84 . . . . RECOVERY 03:18 . . 74 . 126/ 81 . . Electronically signed by : Hayden Anthony, 09/03/2020 13:33:48
--- NOTE | 2020-09-03 11:20 | NM_ITS ---
APPROVED REPORT Exam: Nuclear Stress Test Indication: HTN, FORMER SMOKER, C.P., SOB, FATIGUE Patient Location: Outpatient Stress Tech: Rhonda Díaz [place] Tech:Mireya Crabtree SAMANTHAT RT(R)(N) Ht: 5 ft 11 in Wt: 178 lbs HR: 69 bpm BP: 139/81 mmHg BSA: 2.01 m2 BMI: 24.8 History: HTN, FORMER SMOKER, C.P., SOB, FATIGUE Procedure: Patient received a 0.4 mg of intravenous Lexiscan, resting heart rate 69 bpm, resting blood pressure 139/81 mmHg, with Lexiscan maximum heart rate achived was 94 bpm which is Less than 85 % of the maximum predicted heart rate and blood pressure was 147/92 mmHg. With Lexiscan, patient denied any complaint of chest pain. Electrocardiogram Resting electrocardiogram showed sinus rhythm, with Lexiscan there is less than 1.[address] segment depression noted from the baseline EKG. The EKG portion of the Lexiscan is nondiagnostic. Cardiac Stress and Resting SPECT Images: Cardiac Stress and Resting SPECT images were obtained using technetium 99m Myoview 32.9 mCi stress and 10.44 mCi at rest. Gated SPECT for analysis of segmental wall motion and calculation of the ejection fraction also done. Cardiac stress and resting SPECT images show reversible ischemia involving the inferior posterior basal wall, computer derived ejection fraction is 58% with mild inferior wall hypokinesis, right ventricle is normal size and contractility, there is transient ischemic dilatation of the left ventricle raising the concerns for presence of multivessel coronary artery disease. Conclusion: 1. The EKG portion of the Lexiscan is nondiagnostic. 2. Scintigraphic evidence of reversible ischemia involving the inferior posterior basal wall, computer derived ejection fraction is 58% with segmental wall motion abnormality described above, right ventricle is normal size and contractility. There is transient ischemic dilatation of the left ventricle seen, raising the concern for presence of multivessel coronary artery disease. 3. Abnormal Lexiscan Myoview study. Electronically signed by : Hayden Anthony, 09/03/2020 14:57:13
== END ==
PROVIDERS: PCP Emergency Medicine; Visit Provider Physician Assistant
DX: B19.20 Unspecified viral hepatitis C without hepatic coma (principal); F17.200 Nicotine dependence, unspecified, uncomplicated; K70.31 Alcoholic cirrhosis of liver with ascites; R06.00 Dyspnea, unspecified; R07.9 Chest pain, unspecified; Z01.810 Encounter for preprocedural cardiovascular examination
CPT/HCPCS: 78452; 93017; A9502; J2785

== ENCOUNTER → 2020-09-10 14:10 | Outpatient (CLI) | payer MEDICARE, MEDICAID, SELFPAY ==
[2020-09-10 16:45] LABS: Amphetamine/Metha Screen,Urine Negative ng/ml (<1000)
[2020-09-10 16:46] LABS: Barbiturates Screen,Urine Negative ng/ml (<200); Benzodiazepines Screen,Urine Negative ng/ml (<200)
[2020-09-10 16:47] LABS: Cannabinoid Screen,Urine Negative ng/ml (<50)
[2020-09-10 16:48] LABS: Cocaine Screen,Urine Negative ng/ml (<300); Methadone Screen,Urine Negative ng/ml (<300)
[2020-09-10 16:49] LABS: Opiate Screen,Urine Negative ng/ml (<300); Phencyclidine Screen,Urine Negative ng/ml (<25)
== END ==
PROVIDERS: Visit Provider Emergency Medicine
DX: Z79.899 Other long term (current) drug therapy (principal)
CPT/HCPCS: 80305

== ENCOUNTER → 2020-09-13 11:53 | Outpatient (POV) | payer MEDICARE, MEDICAID, SELFPAY | PROVIDERS: Visit Provider Nurse Practitioner Family | DX: Z00.00 Encounter for general adult medical examination without abnormal findings (principal) ==

== ENCOUNTER 2020-09-15 09:58 | Outpatient (CLI) | payer MEDICARE, MEDICAID, SELFPAY ==
--- NOTE | 2020-09-15 10:05 | US_ITS ---
PROCEDURE: US PARACENTESIS CLINICAL INDICATION: ASCITES COMPARISON: No exams were available for comparison TECHNIQUE: Informed consent was obtain prior to procedure. After appropriate Time out, under aseptic conditions and local anesthesia with 1% buffered lidocaine using sonographic guidance a 6 Maltese Mzei-J-Qcwirnof catheter was inserted into the largest pocket of fluid localized in the right lower quadrant. Approximately 8400 mL cloudy fluid was drained. The patient tolerated the procedure well and left the radiology suite in stable condition. FINDINGS: Diffuse ascites. IMPRESSION: Successful sonographic guided paracentesis without complication. Dictated by: Gopal Loya MD 09/16/2020 11:58 Gopal Loya MD in [place] 09/16/2020 11:58
[2020-09-15 11:57] VITALS: BP 117/65; PULSE 63; RESP 19; O2SAT 99
[2020-09-15 14:23] VITALS: BP 114/63; PULSE 69; RESP 18
[2020-09-15 14:45] LABS: Basophils % 0.6 % (0.1-2.0); Eosinophils # 0.2 K/mm3 (0.0-0.4); Eosinophils % 3.3 % (0.1-12.0); Hematocrit 36.8 % (42.0-52.0); Lymphocytes # 0.8 K/mm3 (0.7-4.5); Lymphocytes % 11.9 % (10-50); Mean Corpuscular HGB Conc 35.2 g/dL (31.8-35.4); Mean Corpuscular Hemoglobin 34.9 pg (27.0-31.2); Mean Corpuscular Volume 99.2 fl (80-94); Mean Platelet Volume 8.5 fl (7.4-10.4); Monocytes # 0.7 K/mm3 (0.1-1.0); Monocytes % 9.8 % (1.7-9.3); Neutrophils # 4.9 K/mm3 (1.8-7.8); Neutrophils % 74.4 % (37.0-80.0); Platelet Count 95 K/mm3 (142-424); Red Blood Count 3.71 M/mm3 (4.60-6.20); Red Cell Distribution Width 14.1 % (11.5-17.5); White Blood Count 6.6 K/mm3 (4.8-10.8)
[2020-09-15 14:49] LABS: Chloride 93 mmol/L (98-107); Sodium 128 mmol/L (136-145)
[2020-09-15 14:52] LABS: Blood Urea Nitrogen 18 mg/dl (9-20); Carbon Dioxide 27 mmol/L (22.0-30.0); Estimated Glomerular Filt Rate 113 ml/min (>60); GFR (African American) 137 ML/MIN (>60); Glucose 105 mg/dl (74-100)
== END 2020-09-15 14:23 | disposition home or self-care (01) ==
PROVIDERS: Physician Assistant; PCP Emergency Medicine; Visit Provider Nurse Practitioner Family
DX: B19.20 Unspecified viral hepatitis C without hepatic coma (principal); F17.200 Nicotine dependence, unspecified, uncomplicated; I20.8 Other forms of angina pectoris; I51.7 Cardiomegaly; K70.31 Alcoholic cirrhosis of liver with ascites; R06.00 Dyspnea, unspecified; R94.31 Abnormal electrocardiogram [ECG] [EKG]; R94.39 Abnormal result of other cardiovascular function study; Z01.810 Encounter for preprocedural cardiovascular examination; Z20.822 Contact with and (suspected) exposure to COVID-19
CPT/HCPCS: 49083; 80048; 85025; 96365; 96366; P9047; U0003

== ENCOUNTER 2020-09-16 07:55 | Day surgery (SDC) | payer MEDICARE, MEDICAID, SELFPAY ==
[2020-09-16] VITALS (13 sets, daily range): BP systolic 103–155; BP diastolic 60–81; PULSE 62–80; RESP 16–18; TEMP 36.7–36.9; O2SAT 89–100; BMI 27.0
--- NOTE | 2020-09-16 07:13 | IR_ITS ---
APPROVED REPORT Patient Location: Outpatient PROCEDURES Left heart catheterization Left ventriculogram Selective coronary angiogram INDICATION High risk abnormal Myoview, Angina pectoris, Informed consent was obtained prior to the procedure. COMPLICATIONS None Estimated Blood Loss: less than 10ml TECHNIQUE One percent lidocaine used to anesthetize the right anterior aspect of the wrist. The right radial artery was accessed via the Seldinger technique. A 6 Nepali sheath was placed in the right radial artery. 2.5 mg of verapamil, 800 mcg of nitroglycerin, 1mg Lidocaine and 5000 U Heparin were given through the arterial sheath. The trap catheter was also used to perform left heart catheterization, left ventriculogram and selective coronary angiogram. At the end of the procedure the sheath was removed good hemostasis was achieved using Traclet band, patient was transferred to the postop holding area in stable condition. ANGIOGRAPHIC RESULTS The left main artery Normal The left anterior descending artery Has proximal and mid vessel 30% stenoses. The circumflex artery Is a dominant vessel and has diffuse 30% stenoses The right coronary artery Small vestigial with slow flow The KESSLER ventriculogram reveals Normal 65% The left ventricular end-diastolic pressure 10 mmHg IMPRESSION Mild to moderate nonflow limiting coronary artery disease as described above Normal ejection fraction Normal left ventricular end-diastolic pressure PLAN 1. Evaluation of noncardiac chest pain 2. Continue risk factor modification Electronically signed by : Horacio Guzman, 09/16/2020 12:13:49
== END 2020-09-16 15:12 | disposition home or self-care (01) ==
LOC: CATHLAB 07:56
PROVIDERS: PCP Emergency Medicine; Visit Provider Internal Medicine
DX: B19.20 Unspecified viral hepatitis C without hepatic coma (principal); F17.200 Nicotine dependence, unspecified, uncomplicated; I20.8 Other forms of angina pectoris; I51.7 Cardiomegaly; K70.31 Alcoholic cirrhosis of liver with ascites; R06.00 Dyspnea, unspecified; R94.31 Abnormal electrocardiogram [ECG] [EKG]; R94.39 Abnormal result of other cardiovascular function study; Z01.810 Encounter for preprocedural cardiovascular examination; I42.9 Cardiomyopathy, unspecified; I50.9 Heart failure, unspecified; I11.0 Hypertensive heart disease with heart failure; Z87.891 Personal history of nicotine dependence
CPT/HCPCS: 93458; 99152; C1725; C1769; J1644; Q9967

== ENCOUNTER 2020-09-27 10:04 | Outpatient (CLI) | payer MEDICARE, MEDICAID, SELFPAY ==
--- NOTE | 2020-09-27 10:08 | US_ITS ---
PROCEDURE: US PARACENTESIS CLINICAL INDICATION: ASCITES COMPARISON: No exams were available for comparison TECHNIQUE: Informed consent was obtain prior to procedure. After appropriate Time out, under aseptic conditions and local anesthesia with 1% buffered lidocaine using sonographic guidance a 6 Icelandic Aloi-Y-Jcspdebb catheter was inserted into the largest pocket of fluid localized in the right lower quadrant. Approximately 8900 mL serous fluid was drained. The patient tolerated the procedure well and left the radiology suite in stable condition. FINDINGS: Diffuse ascites IMPRESSION: Successful sonographic guided paracentesis without complication. Dictated by: Gopal Loya MD 09/27/2020 12:00 Gopal Loya MD in [place] 09/27/2020 12:00
[2020-09-27 11:40] VITALS: BP 124/70; PULSE 83; RESP 18; O2SAT 99
[2020-09-27 13:35] VITALS: BP 129/81; PULSE 89; RESP 18
== END 2020-09-27 13:35 | disposition home or self-care (01) ==
PROVIDERS: PCP Emergency Medicine; Visit Provider Nurse Practitioner Family
DX: R18.8 Other ascites (principal); B18.2 Chronic viral hepatitis C; K74.60 Unspecified cirrhosis of liver
CPT/HCPCS: 49083; 96365; 96366; P9047

== ENCOUNTER 2020-10-03 03:01 | Inpatient (IN) | payer MEDICARE, MEDICAID, SELFPAY ==
[2020-10-03] VITALS (10 sets, daily range): BP systolic 111–127; BP diastolic 61–77; PULSE 76–98; RESP 15–22; TEMP 36.6–36.8; O2SAT 95–100; BMI 19.1; BMI 25.0
--- NOTE | 2020-10-03 03:12 | ECG_ITS ---
APPROVED REPORT Exam: Resting ECG HR:91 bpm ECG Measurements Heart Rate 91 AXES TX 156 P 89 QRSd 78 QRS 70 QT 352 T 59 QTc 432 Conclusion Normal sinus rhythm Low voltage QRS Borderline ECG Electronically signed by : Octaviano Tapia, 10/04/2020 17:32:49
--- NOTE | 2020-10-03 03:14 | XR_ITS ---
PROCEDURE INFORMATION: Exam: XR Chest Exam date and time: 10/03/2020 3:14 AM Age: 64 years old Clinical indication: Shortness of breath; Patient HX: SOA TECHNIQUE: Imaging protocol: XR of the chest. Views: 2 views. COMPARISON: CR XR CHEST 2V 07/20/2020 4:24 PM FINDINGS: Lungs: Unremarkable. No consolidation. Pleural spaces: Unremarkable. No pleural effusion. No pneumothorax. Heart/Mediastinum: Unremarkable. No cardiomegaly. Bones/joints: Unremarkable. IMPRESSION: No acute findings.
--- NOTE | 2020-10-03 03:14 | CT_ITS ---
PROCEDURE INFORMATION: Exam: CT Abdomen And Pelvis With Contrast Exam date and time: 10/03/2020 3:14 AM Age: 64 years old Clinical indication: Abdominal pain; Localized; Right; Patient HX: RT sided abd pain around hernia, vomiting, PT says belly feels warm TECHNIQUE: Imaging protocol: Computed tomography of the abdomen and pelvis with contrast. Radiation optimization: All CT scans at this facility use at least one of these dose optimization techniques: automated exposure control; mA and/or kV adjustment per patient size (includes targeted exams where dose is matched to clinical indication); or iterative reconstruction. Contrast material: ISOVUE; Contrast volume: 75 ml; Contrast route: IV; COMPARISON: CT ABDOMEN PELVIS W CON 08/16/2020 5:04 PM FINDINGS: Lungs: Right basilar pleuroparenchymal scarring/band atelectasis unchanged. Liver: Severe hepatic cirrhosis is unchanged. Gallbladder and bile ducts: Multiple dependently layering hyperattenuating structures are noted within the gallbladder fossa without wall thickening, or pericholecystic fluid. Pancreas: Normal. No ductal dilation. Spleen: Multiple calcific densities spleen are likely related to prior granulomatous process. Spleen is upward limits of normal. Adrenal glands: Right adrenal mass with internal calcification measures 2.6 cm in diameter, unchanged March 06 report. Kidneys and ureters: A 6 mm nonobstructive right renal nephrolithiasis is unchanged from prior. Stomach and bowel: There is nonspecific thickening proximal small bowel. Appendix: No evidence of appendicitis. Intraperitoneal space: Large volume ascites relatively unchanged from prior exam. Vasculature: Unremarkable. No abdominal aortic aneurysm. Lymph nodes: Unremarkable. No enlarged lymph nodes. Urinary bladder: Unremarkable as visualized. Reproductive: Unremarkable as visualized. Bones/joints: Unremarkable. No acute fracture. Soft tissues: There is an indirect right inguinal hernia that contains ascites. IMPRESSION: There is nonspecific thickening proximal small bowel. Severe liver cirrhosis with moderate to large volume ascites unchanged from prior exam. Ascites extends into the right inguinal hernia. Multiple incidental findings as described above.
[2020-10-03 03:25] LABS: ABG Base Excess -1.6 mmol/L (-2.4-2.3); ABG HCO3 18.5 mmhg (22.0-26.0); ABG Oxygen Saturation 99 % (90-100); ABG PO2 115.1 mmhg (80-100)
[2020-10-03 03:25] LABS: Coronavirus 19, PCR Not Detected (NotDetected); Influenza A, PCR Not Detected (NotDetected); Influenza B, PCR Not Detected (NotDetected)
[2020-10-03 03:28] LABS: Basophils % 0.3 % (0.1-2.0); Eosinophils # 0.2 K/mm3 (0.0-0.4); Eosinophils % 1.2 % (0.1-12.0); Hematocrit 41.3 % (42.0-52.0); Hemoglobin 14.8 g/dL (14.1-18.0); Lymphocytes # 1.1 K/mm3 (0.7-4.5); Lymphocytes % 8.4 % (10-50); Mean Corpuscular HGB Conc 35.8 g/dL (31.8-35.4); Mean Corpuscular Hemoglobin 35.2 pg (27.0-31.2); Mean Corpuscular Volume 98.2 fl (80-94); Mean Platelet Volume 8.1 fl (7.4-10.4); Monocytes # 0.7 K/mm3 (0.1-1.0); Monocytes % 5.2 % (1.7-9.3); Neutrophils # 10.8 K/mm3 (1.8-7.8); Platelet Count 172 K/mm3 (142-424); Red Cell Distribution Width 14.3 % (11.5-17.5); White Blood Count 12.7 K/mm3 (4.8-10.8)
[2020-10-03 03:29] LABS: Allen's Test Acceptable; Source Left Radial
[2020-10-03 03:30] LABS: ABG PH 7.69 mmol/L (7.35-7.45)
[2020-10-03 03:31] LABS: ABG PCO2 15.8 mmhg (35.0-45.0)
[2020-10-03 03:31] LABS: MANUAL DIFFERENTIAL MANUAL DIFFERENTIAL (MANUAL DIFF)
[2020-10-03 03:33] LABS: Alanine Aminotransferase 80 U/L (12-78); Albumin Level 3.7 g/dl (3.5-5.0); Albumin/Globulin Ratio 1.1 (1.1-1.8); Alkaline Phosphatase 135 U/L (38-126); Anion Gap 14.6 mEq/L (5-15); Aspartate Amino Transferase 99 U/L (17-59); Bilirubin,Total 3.8 mg/dl (0.2-1.3); Blood Urea Nitrogen 35 mg/dl (9-20); Calcium 9.5 mg/dl (8.4-10.2); Carbon Dioxide 23 mmol/L (22.0-30.0); Chloride 88 mmol/L (98-107); Creatinine Clearance Estimated 65 mL/min (50-200); Estimated Glomerular Filt Rate 113 ml/min (>60); GFR (African American) 137 ML/MIN (>60); Globulin 3.3 g/dL (1.3-3.2); Glucose 105 mg/dl (74-100); Potassium 4.6 mmoL/L (3.5-5.1); Sodium 121 mmol/L (136-145)
[2020-10-03 03:34] LABS: Amylase 120 U/L (30-110); Lipase 506 U/L (23-300)
[2020-10-03 03:35] LABS: Lactic Acid 3.7 mmol/L (0.7-2.1)
[2020-10-03 03:40] LABS: C-Reactive Protein 12.2 mg/L (0-4)
[2020-10-03 03:51] LABS: Troponin I < 0.01 ng/ml (0.00-0.034)
[2020-10-03 03:55] LABS: Erythrocyte Sedimentation Rate 11 mm/hr (0-20)
--- NOTE | 2020-10-03 03:55 | PC.NURSE ---
pt gone to radiology
[2020-10-03 03:58] LABS: Eosinophils % 1 % (0-3); Lymphocytes % 9 % (10-50); Monocytes % 4 % (2-9); Neutrophils % 86 % (42-76); Platelet Estimate Normal; RBC Morphology Normal; Total Cells Counted 100
[2020-10-03 03:59] LABS: Procalcitonin 0.105 ng/mL (0.0-2.0)
--- NOTE | 2020-10-03 04:11 | PC.NURSE ---
pt back in room from radiology.
[2020-10-03 04:34] LABS: Microscopic, Urine URINE MICROSCOPIC (MICROSCOPIC)
[2020-10-03 04:35] LABS: Appearance,Urine SL CLOUDY (Clear); Blood, Urine TRACE-I (Negative); Color,Urine AMBER (Yellow); Glucose,Urine (UA) Negative (Negative); Ketones,Urine Negative (Negative); Leukocyte Esterase,Urine Negative (Negative); Nitrate,Urine Negative (Negative); PH,Urine 6.5 (5.0-8.5); Protein,Urine Negative (Negative); Specific Gravity, Urine <= 1.005 (1.005-1.030); Urobilinogen,Urine >=8.0 EU/dl (0.2)
[2020-10-03 04:36] LABS: Bilirubin,Urine 1+ (Negative)
--- NOTE | 2020-10-03 04:37 | HMH.EDNVD ---
ED Disposition Clinical Impression: SBP (spontaneous bacterial peritonitis), Severe sepsis with acute organ dysfunction, Tobacco dependence syndrome Hepatitis C Qualifiers: Viral hepatitis chronicity: unspecified Hepatic coma status: without hepatic coma Qualified Code(s): B19.20 - Unspecified viral hepatitis C without hepatic coma Cirrhosis of liver Qualifiers: Hepatic cirrhosis type: unspecified hepatic cirrhosis Ascites presence: with ascites Qualified Code(s): K74.60 - Unspecified cirrhosis of liver; R18.8 - Other ascites Disposition: Admitted as Observation Condition on Discharge: [facility] - Critical Care Critical Care Time: No Attestation: On 10/03/20, the high probability of a clinically significant, sudden or life threatening deterioration of the following system(s) required my full and direct attention, intervention and personal management. The time I documented below is in addition to time spent performing reported procedures but includes the following listed in this critical care notation. Medical Decision Making - Medical Records Medical records reviewed: Yes: I reviewed the patient's medical records. - Blaze Inquiry Pt receiving controlled substance: No Vital Signs: 10/03/20 03:02 10/03/20 04:41 10/03/20 05:00 Temperature 97.8 F Temperature Source Oral Pulse Rate 76 81 Pulse Rate [Right] 92 H Respiratory Rate 22 Blood Pressure 123/77 115/77 Blood Pressure [Right Arm] 119/76 Blood Pressure Mean 87 Blood Pressure Mean [Right Arm] 90 02 Sat by Pulse Oximetry 95 99 100 10/03/20 05:30 Temperature Temperature Source Pulse Rate 82 Pulse Rate [Right] Respiratory Rate Blood Pressure 112/74 Blood Pressure [Right Arm] Blood Pressure Mean 80 Blood Pressure Mean [Right Arm] 02 Sat by Pulse Oximetry 99 - Lab Data Lab results reviewed: Yes: I reviewed the patient's lab results. Lab Results 10/03/20 03:16: ESR 11 10/03/20 03:16: Troponin I < 0.01, C-Reactive Protein 12.2 H, Amylase 120 H, Lipase 506 H 10/03/20 03:16: Procalcitonin 0.105 10/03/20 03:16: WBC 12.7 H, RBC 4.20 L, Hgb 14.8, Hct 41.3 L, MCV 98.2 H, MCH 35.2 H, MCHC 35.8 H, RDW 14.3, Plt Count 172, MPV 8.1, Neut % (Auto) 85.0 H, Lymph % (Auto) 8.4 L, [place] % (Auto) 5.2, Eos % (Auto) 1.2, Baso % (Auto) 0.3, Neut # (Auto) 10.8 H, Lymph # (Auto) 1.1, [place] # (Auto) 0.7, Eos # (Auto) 0.2, Baso # (Auto) 0.0, Total Counted 100, Neutrophils % (Manual) 86 H, Lymphocytes % (Manual) 9 L, Monocytes % (Manual) 4, Eosinophils % (Manual) 1, Platelet Estimate Normal, RBC Morphology Normal 10/03/20 03:16: Sodium 121 L, Potassium 4.6, Chloride 88 L, Carbon Dioxide 23, Anion Gap 14.6, BUN 35 H, Creatinine 0.70, Estimated Creat Clear 65, Estimated GFR 113, Est GFR ( Amer) 137, Glucose 105 H, Calcium 9.5, Total Bilirubin 3.8 H, AST 99 H, ALT 80 H, Alkaline Phosphatase 135 H, Total Protein 7.0, Albumin 3.7, Globulin 3.3 H, Albumin/Globulin Ratio 1.1 10/03/20 03:16: SARS-CoV-2 (PCR) Not detected, Influenza A Untype (PCR) Not detected, Influenza Type B (PCR) Not detected 10/03/20 03:16: Lactate 3.7 H 10/03/20 03:20: Specimen Source Left radial, ABG pH 7.69 H*, ABG pCO2 15.8 L, ABG pO2 115.1 H, ABG HCO3 18.5 L, ABG Total CO2 19.0 L, ABG O2 Saturation 99, ABG Base Excess -1.6, Gopal Test Acceptable 10/03/20 04:29: Urine Color Pat, Urine Appearance Sl cloudy, Urine pH 6.5, Ur Specific [place] <= 1.005, Urine Protein Negative, Urine Glucose (UA) Negative, Urine Ketones Negative, Urine Blood Trace-i, Urine Nitrate Negative, Urine Bilirubin 1+ A, Urine Urobilinogen >=8.0, Ur Leukocyte Esterase Negative, Urine RBC Occasional, Urine WBC 3-5, Ur Squamous Epith Cells 3-5, Urine Bacteria 1+, Urine Mucus 1+ 10/03/20 04:40: PT 15.1 H, INR 1.31 H, APTT 28.9 10/03/20 04:40: Ammonia 32 H Result diagrams: 10/03/20 03:16 10/03/20 03:16 Orders (Tests/Meds): ED MEDICATIONS Generic Name Dose Route Start Last Admin Trade Name Freq PRN Reason Stop Dose Ad
[2020-10-03 04:46] LABS: Bacteria,Urine 1+ /lpf; Mucus,Urine 1+ /lpf; RBC,Urine Occasional #/hpf (0-3)
[2020-10-03 04:54] LABS: Ammonia 32 umol/L (9-30)
[2020-10-03 04:59] LABS: Activated Partial Thrombo Time 28.9 seconds (22.8-30.6); INR 1.31 (0.9-1.1); Prothrombin Time 15.1 seconds (10.1-12.5)
[2020-10-03 07:24] LABS: Reflex Lactic Add Lactic Reflex
[2020-10-03 08:07] LABS: Lactic Acid Follow Up (RFLX 1) 2.1 mmol/L (0.7-2.1)
[2020-10-03 08:41] LABS: Troponin I < 0.01 ng/ml (0.00-0.034)
--- NOTE | 2020-10-03 08:54 | HMH.HP ---
*Admission Date: 10/03/20 *Chief complaint: abd pain *History of present illness: this patient presented to the ed with vomiting and progressive abd pain over the last few hrs - he has known cirrhosis and hep c but no current etoh - no fever or altered mental status - has pending appt with [facility] this week - he had paracentesis a few days ago at [facility] - pt was seen in the ed and felt to have spont bact peritionitis - he meet sev sepsis with organ dysfunction and was admitted for treatment [facility] History I have reviewed the patient's past medical history: Yes Medical History: Reports:: Anxiety, Cardiomyopathy, Congestive Heart Failure, Hypertension Denies:: Diabetes Mellitus Type 1, Diabetes Mellitus Type 2, Seizures *Have you ever received a pneumonia vaccine?: No *Have you received a flu vaccine this season?: No Other Medical History: Reports: Liver Disease Other Surgeries: Yes: No Previous Surgery, Cardiac Catheterization, Colonoscopy, Hernia Repair, Other Amputation: No Fractures: No - *Social History Smoking Status: Former smoker Tobacco Type: cigarettes # Packs/Day (cigarettes): 1 #Yrs smoked (if former smoker): 30 Alcohol Intake: never Alcohol Intake Frequency:: holidays/special occasions only Substance Use Type: denies use *Occupational Status:: disabled Housing: house Household Members: spouse *Travel in the last 8 weeks: None - Psychiatric History Pschychiatric History:: Reports:: Anxiety Family Hx:: Cancer, Coronary Artery Disease, Heart Attack, Stroke Review of Systems - Review of Systems Review of systems:: pertinent systems reviewed and negative unless documented below - Constitutional Reports weakness, Denies fever(s) - Eyes Denies change in vision - ENT Denies dizziness, Denies sore throat - *Cardiovascular Denies chest pain - *Respiratory Denies cough - *Gastrointestinal Reports abdominal pain, Reports nausea, Reports vomiting, Denies black, tarry stools - *Genitourinary Denies side pain - *Musculoskeletal Denies joint pain, Denies joint swelling - Integumentary/Breasts Denies rash - *Neurologic Reports weakness, Denies localized weakness - Psychiatric Denies anxiety Meds Home Medications Medication Instructions Recorded Confirmed Type furosemide 40 mg tablet 40 mg PO DAILY 08/16/20 10/03/20 History spironolactone 100 mg tablet 100 mg PO DAILY 08/16/20 10/03/20 History Oxycodone HCl [Oxycodone (IR) 10mg 10 mg PO BIDP PRN 10/03/20 10/03/20 History Tab] Allergies Allergy/AdvReac Type Severity Reaction Status Date / Time No Known Allergies Allergy Verified 10/01/20 10:00 Exam Vital signs and Labs for Last 24 Hours: Temp Pulse Resp BP Pulse Ox 97.8 F 96 H 15 111/61 96 10/03/20 08:00 10/03/20 08:00 10/03/20 08:00 10/03/20 08:00 10/03/20 08:00 Laboratory Results - last 24 hr 10/03/20 03:16: ESR 11 10/03/20 03:16: Troponin I < 0.01, C-Reactive Protein 12.2 H, Amylase 120 H, Lipase 506 H 10/03/20 03:16: Procalcitonin 0.105 10/03/20 03:16: WBC 12.7 H, RBC 4.20 L, Hgb 14.8, Hct 41.3 L, MCV 98.2 H, MCH 35.2 H, MCHC 35.8 H, RDW 14.3, Plt Count 172, MPV 8.1, Neut % (Auto) 85.0 H, Lymph % (Auto) 8.4 L, [place] % (Auto) 5.2, Eos % (Auto) 1.2, Baso % (Auto) 0.3, Neut # (Auto) 10.8 H, Lymph # (Auto) 1.1, [place] # (Auto) 0.7, Eos # (Auto) 0.2, Baso # (Auto) 0.0, Total Counted 100, Neutrophils % (Manual) 86 H, Lymphocytes % (Manual) 9 L, Monocytes % (Manual) 4, Eosinophils % (Manual) 1, Platelet Estimate Normal, RBC Morphology Normal 10/03/20 03:16: Sodium 121 L, Potassium 4.6, Chloride 88 L, Carbon Dioxide 23, Anion Gap 14.6, BUN 35 H, Creatinine 0.70, Estimated Creat Clear 65, Estimated GFR 113, Est GFR ( Amer) 137, Glucose 105 H, Calcium 9.5, Total Bilirubin 3.8 H, AST 99 H, ALT 80 H, Alkaline Phosphatase 135 H, Total Protein 7.0, Albumin 3.7, Globulin 3.3 H, Albumin/Globulin Ratio 1.1 10/03/20 03:16: SARS-CoV-2 (PCR) Not detected, Influenza A Untyp
[2020-10-03 09:44] LABS: Reflex Lactic (2 hrs) Add Lactic Reflex
[2020-10-03 10:40] LABS: Troponin I < 0.01 ng/ml (0.00-0.034)
--- NOTE | 2020-10-03 10:53 | HMH.PHAVTE ---
[facility] Pharmacy VTE Monitoring - Patient Demographics Admission date: 10/03/20 Report Date: 10/03/20 Time: 10:53 Allergies/Adverse Reactions: Patient Allergies No Known Allergies Allergy (Verified 10/01/20 10:00) Height: 1.8 m Weight: 81.278 kg Patient Problems: Current Active Problems Hepatitis C (Acute) SBP (spontaneous bacterial peritonitis) (Acute) Severe sepsis with acute organ dysfunction (Acute) Hyponatremia (Acute) Ascites (Chronic) Cirrhosis (Chronic) Tobacco dependence syndrome (Chronic) - VTE Risk Labs: VTE Related Lab Results Hgb 14.8 g/dL (14.1-18.0) 10/03/20 03:16 Hct 41.3 % (42.0-52.0) L 10/03/20 03:16 Plt Count 172 K/mm3 (142-424) 10/03/20 03:16 PT 15.1 seconds (10.1-12.5) H 10/03/20 04:40 INR 1.31 (0.9-1.1) H 10/03/20 04:40 APTT 28.9 seconds (22.8-30.6) 10/03/20 04:40 BUN 35 mg/dl (9-20) H 10/03/20 03:16 Creatinine 0.70 mg/dl (0.66-1.25) 10/03/20 03:16 Estimated Creat Clear 65 mL/min (50-200) 10/03/20 03:16 Was VTE Risk Assessment Performed: Yes VTE Score: 1 VTE Risk Level: Very Low Risk - Prophylaxis Types of VTE Prophylaxis: TEDS Knee High (MARYJANE HOSE ORDER PLACED)
--- NOTE | 2020-10-03 15:22 | PC.NURSE ---
Pt has been pleasant and cooperative this shift. A&O X4. No complaints of pain. Pt is on room air with sats. >90%. Lungs CTA. No edema noted. Abdomen is large, round, firm, and slightly tender. Pt ambulates independently and uses the toilet to void clear, yellow urine without issue. No BM thus far today. Appetite is good and pt eats the majority of all meals. VSS. Call light within reach. Will continue to monitor.
[2020-10-04] VITALS: BP 116/58; PULSE 83; RESP 16; TEMP 36.9; O2SAT 95
[2020-10-04 04:00] VITALS: BP 98/55; PULSE 88; RESP 16; TEMP 36.6; O2SAT 98
--- NOTE | 2020-10-04 05:01 | PC.NURSE ---
shift summary patient complained of abdominal pain, bowel hyperactivity and abdominal tightness. prn zofran, and oxycontin given. patient rested well throughout the night. requested zofran again about 0400 this am, abdomin feels much softer than earlier in shift. breath sounds have been clear. up and ambulating around room. hot box operator has shown sr.
[2020-10-04 06:25] LABS: Basophils # 0.1 K/mm3 (0-0.2); Basophils % 0.2 % (0.1-2.0); Eosinophils # 0.2 K/mm3 (0.0-0.4); Eosinophils % 0.5 % (0.1-12.0); Hematocrit 34.9 % (42.0-52.0); Lymphocytes # 0.8 K/mm3 (0.7-4.5); Lymphocytes % 2.7 % (10-50); Mean Corpuscular HGB Conc 34.4 g/dL (31.8-35.4); Mean Corpuscular Hemoglobin 35.1 pg (27.0-31.2); Mean Platelet Volume 7.7 fl (7.4-10.4); Monocytes # 1.2 K/mm3 (0.1-1.0); Monocytes % 4.1 % (1.7-9.3); Neutrophils # 27.7 K/mm3 (1.8-7.8); Neutrophils % 92.4 % (37.0-80.0); Platelet Count 172 K/mm3 (142-424); Red Blood Count 3.43 M/mm3 (4.60-6.20); Red Cell Distribution Width 14.6 % (11.5-17.5)
[2020-10-04 06:30] LABS: MANUAL DIFFERENTIAL MANUAL DIFFERENTIAL (MANUAL DIFF)
[2020-10-04 06:37] LABS: Chloride 92 mmol/L (98-107); Potassium 5.6 mmoL/L (3.5-5.1); Sodium 123 mmol/L (136-145)
[2020-10-04 06:39] LABS: Alanine Aminotransferase 71 U/L (12-78); Alkaline Phosphatase 92 U/L (38-126); Ammonia 46 umol/L (9-30); Aspartate Amino Transferase 71 U/L (17-59); Bilirubin,Total 2.7 mg/dl (0.2-1.3); Blood Urea Nitrogen 44 mg/dl (9-20); Carbon Dioxide 24 mmol/L (22.0-30.0); Creatinine Clearance Estimated 85 mL/min (50-200); Estimated Glomerular Filt Rate 97 ml/min (>60); GFR (African American) 117 ML/MIN (>60)
[2020-10-04 06:40] LABS: Calcium 9.2 mg/dl (8.4-10.2); Globulin 2.9 g/dL (1.3-3.2); Glucose 150 mg/dl (74-100); Total Protein,Serum 5.9 g/dl (6.3-8.2)
[2020-10-04 07:21] LABS: Lymphocytes % 7 % (10-50); Macrocytosis 1+; Monocytes % 5 % (2-9); Neutrophils % 88 % (42-76); Platelet Estimate Normal; Total Cells Counted 100
[2020-10-04 08:00] VITALS: BP 131/55; PULSE 93; RESP 19; TEMP 36.4; O2SAT 98
--- NOTE | 2020-10-04 09:37 | HMH.DCSUM ---
General - General Admission date:: 10/03/20 Discharge date: 10/04/20 HPI HPI: this patient presented to the ed with vomiting and progressive abd pain over the last few hrs - he has known cirrhosis and hep c but no current etoh - no fever or altered mental status - [facility] - he had paracentesis a few days ago at [facility] [place] - pt was seen in the ed and felt to have spont bact peritionitis - he meet sev sepsis with organ dysfunction and was admitted for treatment Hospital Course Hospital Course: Laboratory Tests 10/03/20 10/03/20 10/03/20 03:16 03:16 03:16 WBC RBC Hgb Hct MCV MCH MCHC RDW Plt Count MPV Neut % (Auto) Lymph % (Auto) [place] % (Auto) Eos % (Auto) Baso % (Auto) Neut # (Auto) Lymph # (Auto) [place] # (Auto) Eos # (Auto) Baso # (Auto) Total Counted Neutrophils % (Manual) Lymphocytes % (Manual) Monocytes % (Manual) Eosinophils % (Manual) Platelet Estimate RBC Morphology Macrocytosis ESR 11 PT INR APTT Specimen Source ABG pH ABG pCO2 ABG pO2 ABG HCO3 ABG Total CO2 ABG O2 Saturation ABG Base Excess Gopal Test Sodium Potassium Chloride Carbon Dioxide Anion Gap BUN Creatinine Estimated Creat Clear Estimated GFR Est GFR ( Amer) Glucose Lactate Calcium Magnesium Total Bilirubin AST ALT Alkaline Phosphatase Ammonia Troponin I < 0.01 C-Reactive Protein 12.2 H Total Protein Albumin Globulin Albumin/Globulin Ratio Amylase 120 H Lipase 506 H Procalcitonin 0.105 Urine Color Urine Appearance Urine pH Ur Specific [place] Urine Protein Urine Glucose (UA) Urine Ketones Urine Blood Urine Nitrate Urine Bilirubin Urine Urobilinogen Ur Leukocyte Esterase Urine RBC Urine WBC Ur Squamous Epith Cells Urine Bacteria Urine Mucus SARS-CoV-2 (PCR) Influenza A Untype (PCR) Influenza Type B (PCR) 10/03/20 10/03/20 10/03/20 03:16 03:16 03:16 WBC 12.7 H RBC 4.20 L Hgb 14.8 Hct 41.3 L MCV 98.2 H MCH 35.2 H MCHC 35.8 H RDW 14.3 Plt Count 172 MPV 8.1 Neut % (Auto) 85.0 H Lymph % (Auto) 8.4 L [place] % (Auto) 5.2 Eos % (Auto) 1.2 Baso % (Auto) 0.3 Neut # (Auto) 10.8 H Lymph # (Auto) 1.1 [place] # (Auto) 0.7 Eos # (Auto) 0.2 Baso # (Auto) 0.0 Total Counted 100 Neutrophils % (Manual) 86 H Lymphocytes % (Manual) 9 L Monocytes % (Manual) 4 Eosinophils % (Manual) 1 Platelet Estimate Normal RBC Morphology Normal Macrocytosis ESR PT INR APTT Specimen Source ABG pH ABG pCO2 ABG pO2 ABG HCO3 ABG Total CO2 ABG O2 Saturation ABG Base Excess Gopal Test Sodium 121 L Potassium 4.6 Chloride 88 L Carbon Dioxide 23 Anion Gap 14.6 BUN 35 H Creatinine 0.70 Estimated Creat Clear 65 Estimated GFR 113 Est GFR ( Amer) 137 Glucose 105 H Lactate Calcium 9.5 Magnesium Total Bilirubin 3.8 H AST 99 H ALT 80 H Alkaline Phosphatase 135 H Ammonia Troponin I C-Reactive Protein Total Protein 7.0 Albumin 3.7 Globulin 3.3 H Albumin/Globulin Ratio 1.1 Amylase Lipase Procalcitonin Urine Color Urine Appearance Urine pH Ur Specific [place] Urine Protein Urine Glucose (UA) Urine Ketones Urine Blood Urine Nitrate Urine Bilirubin Urine Urobilinogen Ur Leukocyte Esterase Urine RBC Urine WBC Ur Squamous Epith Cells Urine Bacteria Urine Mucus SARS-CoV-2 (PCR) Not detected Influenza A Untype (PCR) Not detected Influenza Type B (PCR) Not detected 10/03/20 10/03/20 10/03/20 03:16 03:20 04:29 WBC RBC H
[2020-10-04 09:42] LABS: Anion Gap 12.6 mEq/L (5-15)
[2020-10-04 10:10] VITALS: PULSE 86; PULSE 99
[2020-10-04 16:00] VITALS: BP 106/64; PULSE 86; RESP 19; TEMP 36.6; O2SAT 97
--- NOTE | 2020-10-04 19:22 | PC.NURSE ---
has done well this shift. some complaints of belly pain at end of shift. independent in room with assistance from family. appetite decent. zofran seems to help patient. abdomen remains distended and firm. vitals stable.
[2020-10-04 20:00] VITALS: BP 132/68; PULSE 90; RESP 17; TEMP 36.6; O2SAT 96
[2020-10-05 04:00] VITALS: BP 136/64; PULSE 80; RESP 16; TEMP 36.7; O2SAT 97
--- NOTE | 2020-10-05 04:34 | PC.NURSE ---
PT. HAS C/O ABD PAIN X2; ZOFRAN REPORTED TO GIVE RELIEF. NO N/V/D, DIZZINESS OR SOA REPORTED. ABD DISTENDED AND TENDER IN RUQ.
[2020-10-05 06:21] VITALS: BMI 25.0
[2020-10-05 07:52] LABS: Chloride 93 mmol/L (98-107); Potassium 5.3 mmoL/L (3.5-5.1); Sodium 122 mmol/L (136-145)
[2020-10-05 07:55] LABS: Anion Gap 11.3 mEq/L (5-15); Blood Urea Nitrogen 55 mg/dl (9-20); Carbon Dioxide 23 mmol/L (22.0-30.0); Creatinine Clearance Estimated 85 mL/min (50-200); Estimated Glomerular Filt Rate 85 ml/min (>60); GFR (African American) 102 ML/MIN (>60); Glucose 137 mg/dl (74-100)
[2020-10-05 07:56] LABS: Ammonia < 9 umol/L (9-30)
[2020-10-05 08:00] VITALS: BP 109/60; PULSE 83; RESP 20; TEMP 36.4; O2SAT 90
[2020-10-05 08:01] LABS: Lactic Acid 3.2 mmol/L (0.7-2.1)
[2020-10-05 08:02] LABS: Basophils % 0.1 % (0.1-2.0); Eosinophils # 0.1 K/mm3 (0.0-0.4); Eosinophils % 0.3 % (0.1-12.0); Hematocrit 32.9 % (42.0-52.0); Hemoglobin 11.4 g/dL (14.1-18.0); Lymphocytes # 1.2 K/mm3 (0.7-4.5); Lymphocytes % 6.1 % (10-50); Mean Corpuscular HGB Conc 34.5 g/dL (31.8-35.4); Mean Corpuscular Volume 101.4 fl (80-94); Mean Platelet Volume 8.3 fl (7.4-10.4); Monocytes % 5.2 % (1.7-9.3); Neutrophils # 17.5 K/mm3 (1.8-7.8); Neutrophils % 88.3 % (37.0-80.0); Platelet Count 194 K/mm3 (142-424); Red Blood Count 3.25 M/mm3 (4.60-6.20); White Blood Count 19.9 K/mm3 (4.8-10.8)
[2020-10-05 08:06] LABS: MANUAL DIFFERENTIAL MANUAL DIFFERENTIAL (MANUAL DIFF)
--- NOTE | 2020-10-05 08:31 | HMH.ACPN2 ---
Internal Medicine - PN: Subj *Date: 10/05/20 *Time: 08:50 Interval history: 64-year-old male patient sitting up in bed with at bedside in chair. He reports he did have some nausea during the night and medication controlled this. He does report decreased appetite. Still awaiting bed at . Exam Vital signs and Labs for Last 24 Hours: Temp Pulse Resp BP Pulse Ox 98.0 F 80 16 136/64 97 10/05/20 04:00 10/05/20 04:00 10/05/20 04:00 10/05/20 04:00 10/05/20 04:00 Laboratory Results - last 24 hr 10/04/20 06:16: Anion Gap 12.6 10/05/20 07:43: WBC 19.9 H D, RBC 3.25 L, Hgb 11.4 L, Hct 32.9 L, MCV 101.4 H, MCH 35.0 H, MCHC 34.5, RDW 15.0, Plt Count 194, MPV 8.3, Neut % (Auto) 88.3 H, Lymph % (Auto) 6.1 L, [place] % (Auto) 5.2, Eos % (Auto) 0.3, Baso % (Auto) 0.1, Neut # (Auto) 17.5 H, Lymph # (Auto) 1.2, [place] # (Auto) 1.0, Eos # (Auto) 0.1, Baso # (Auto) 0.0 10/05/20 07:43: Sodium 122 L, Potassium 5.3 H, Chloride 93 L, Carbon Dioxide 23, Anion Gap 11.3, BUN 55 H, Creatinine 0.90, Estimated Creat Clear 85, Estimated GFR 85, Est GFR ( Amer) 102, Glucose 137 H, Calcium 9.0 10/05/20 07:43: Lactate 3.2 H 10/05/20 07:43: Ammonia < 9 L I & O for Last 24 hours: Intake & Output 10/02/20 10/03/20 10/04/20 10/05/20 23:59 23:59 23:59 23:59 Intake Total 2368 / 2608 3400 / 3400 680 / 680 Output Total 600 / 600 Balance 2368 / 2608 2800 / 2800 680 / 680 Weight 179 lb 3 oz 179 lb 2.997 oz Microbiology Reports for the Last 24 Hours: Microbiology 10/03/20 03:16 Blood Blood Culture - Preliminary NO GROWTH AFTER 48 HOURS 10/03/20 03:16 Blood Blood Culture - Preliminary NO GROWTH AFTER 48 HOURS - Constitutional no acute distress, thin, chronically ill appearing - *Routine HEENT Exam Head: Present: normocephalic Eye: Present: EOMI ENT: Present: mucous membranes moist - *Routine Neck Exam Present: trachea midline. Absent: tracheal deviation - *Routine Respiratory Exam Present: CTA bilaterally - *Routine Cardiovascular Exam Present: RRR - *Routine Abdominal Exam Present: normoactive bowel sounds, distended, firm - *Routine Extremities Exam Present: edema, pulses intact. Absent: cyanosis, calf tenderness - *Routine Skin Exam Present: intact, dry, warm, jaundice. Absent: cyanosis - *Routine Neurological Exam Present: alert, oriented X3. Absent: altered mental status - Routine Psychiatric Exam Present: normal affect, normal thought process. Absent: auditory hallucinations, visual hallucinations Assessment and Plan (1) Hyponatremia Status: Acute Category: Medical Code(s): E87.1 - Hypo-osmolality and hyponatremia (2) SBP (spontaneous bacterial peritonitis) Status: Acute Category: Medical Code(s): K65.2 - Spontaneous bacterial peritonitis (3) Severe sepsis with acute organ dysfunction Status: Acute Category: Medical Code(s): A41.9 - Sepsis, unspecified organism; R65.20 - Severe sepsis without septic shock (4) Ascites Status: Chronic Qualifiers: Ascites type: due to alcoholic cirrhosis Qualified Code(s): K70.31 - Alcoholic cirrhosis of liver with ascites Category: Medical Code(s): R18.8 - Other ascites (5) Cirrhosis Status: Chronic Qualifiers: Hepatic cirrhosis type: unspecified hepatic cirrhosis Ascites presence: with ascites Qualified Code(s): K74.60 - Unspecified cirrhosis of liver; R18.8 - Other ascites Category: Medical Code(s): K74.60 - Unspecified cirrhosis of liver (6) Abdominal pain with vomiting Status: Acute Category: Medical Code(s): R10.9 - Unspecified abdominal pain; R11.10 - Vomiting, unspecified (7) Hepatitis C Status: Acute Qualifiers: Viral hepatitis chronicity: unspecified Hepatic coma status: without hepatic coma Qualified Code(s): B19.20 - Unspecified viral hepatitis C without hepatic coma Category: Medical Code(s):
[2020-10-05 09:36] LABS: Lymphocytes % 9 % (10-50); Monocytes % 4 % (2-9); Neutrophils % 84 % (42-76); Total Cells Counted 100
[2020-10-05 09:42] LABS: Platelet Estimate Normal
[2020-10-05 09:43] LABS: Howell-Jolly Bodies 2+
[2020-10-05 09:46] LABS: Burr Cells 1+
--- NOTE | 2020-10-05 10:15 | PC.NURSE ---
did relay to rosie clark aprn patient had complaints of vomiting. noted to be black, which patient stated stool had also been black. okayed to give zofran a little early
[2020-10-05 11:45] LABS: Reflex Lactic Add Lactic Reflex
[2020-10-05 12:00] VITALS: BP 108/62; PULSE 84; RESP 16; O2SAT 98
[2020-10-05 12:32] LABS: Lactic Acid Follow Up (RFLX 1) 2.6 mmol/L (0.7-2.1)
--- NOTE | 2020-10-05 12:51 | PC.NURSE ---
called for update on patient . still no beds available at this time. stated it would not be today and could not give any estimate on when there may be. called and updated rosie clark aprn.
--- NOTE | 2020-10-05 13:55 | US_ITS ---
PROCEDURE: US PARACENTESIS CLINICAL INDICATION: Ascites COMPARISON: No exams were available for comparison TECHNIQUE: Informed consent was obtain prior to procedure. After appropriate Time out, under aseptic conditions and local anesthesia with 1% buffered lidocaine using sonographic guidance a 6 Pashto [id number] catheter was inserted into the largest pocket of fluid localized in the right lower quadrant. Approximately 8900 mL of serous fluid was drained. The patient tolerated the procedure well and left the radiology suite in stable condition. FINDINGS: Diffuse ascites IMPRESSION: Successful sonographic guided paracentesis without complication. Dictated by: Gopal Loya MD 10/05/2020 17:45 Gopal Loya MD in [facility] 10/05/2020 17:45
[2020-10-05 14:19] LABS: Reflex Lactic (2 hrs) Add Lactic Reflex
--- NOTE | 2020-10-05 14:50 | PC.NURSE ---
called and spoke with satish capone rn at dr [facility] office about patient pain, and vomiting. stated she would talk to them. new order placed from office
[2020-10-05 14:55] LABS: Alanine Aminotransferase 192 U/L (12-78); Albumin Level 2.9 g/dl (3.5-5.0); Alkaline Phosphatase 83 U/L (38-126); Aspartate Amino Transferase 203 U/L (17-59); Bilirubin,Direct 1.1 mg/dl (0.0-0.4); Bilirubin,Total 3.1 mg/dl (0.2-1.3); Bilirubin,Unconjugated 1.9 mg/dL (0.0-1.1); Total Protein,Serum 5.7 g/dl (6.3-8.2)
[2020-10-05 15:12] LABS: Lactic Acid Follow up (RFLX 2) 3.4 mmol/L (0.7-2.1)
--- NOTE | 2020-10-05 15:21 | PC.NURSE ---
down for paracentesis now
[2020-10-05 16:00] VITALS: BP 114/55; PULSE 82; RESP 16; TEMP 36.4; O2SAT 100
[2020-10-05 16:41] LABS: Source, Body Fld. Paracentesis Fluid
[2020-10-05 16:42] LABS: Appearance,Body Fld. Slightly cloudy
[2020-10-05 16:44] LABS: TNC,Body Fluid 50 cells/uL (< 1000); Volume,Body Fld. 8 mL
[2020-10-05 16:45] LABS: RBC,Body Fluid < 10 cells/uL (< 10 X 10^3)
--- NOTE | 2020-10-05 17:16 | PC.NURSE ---
spoke with pharmacist at night watch who stated you would round albumin amount to nearest 12.5 grams. stated to give 50grams, and run each bottle over an hour so 4 bottles over 4 hours.
--- NOTE | 2020-10-05 18:04 | PC.NURSE ---
patient has had an okay day. complaints of pain and vomiting off and on. back from paracentesis and stable. tolerating albumin at this time well. rings out as needed. mostly independent. distention to abdomen is down. still no beds at . vitals have been stable. assists patient. appetite is poor.
[2020-10-05 18:39] LABS: Mononuclear WBCs,Body Fluid 0 %; Polynuclear WBC,Body Fluid 0 %
[2020-10-05 20:00] VITALS: BP 109/54; PULSE 79; RESP 17; TEMP 36.6; O2SAT 97; O2SAT 99
--- NOTE | 2020-10-06 03:20 | PC.NURSE ---
Pt is A/O x4. No acute changes this shift. Pt slept well all shift. On room air with stats >90%. VSS, IV patent. Admin meds per JUN. at bedside all shift. Pt is able to let needs known to staff. Waiting on a bed at . Call light within reach. No concerns at this time.
[2020-10-06 07:43] LABS: Anion Gap 8.4 mEq/L (5-15); Basophils % 0.1 % (0.1-2.0); Blood Urea Nitrogen 60 mg/dl (9-20); Calcium 9.4 mg/dl (8.4-10.2); Carbon Dioxide 24 mmol/L (22.0-30.0); Chloride 95 mmol/L (98-107); Creatinine Clearance Estimated 85 mL/min (50-200); Eosinophils # 0.2 K/mm3 (0.0-0.4); Eosinophils % 1.1 % (0.1-12.0); Estimated Glomerular Filt Rate 97 ml/min (>60); GFR (African American) 117 ML/MIN (>60); Glucose 94 mg/dl (74-100); Hematocrit 26.1 % (42.0-52.0); Lymphocytes # 1.6 K/mm3 (0.7-4.5); Lymphocytes % 10.2 % (10-50); Mean Corpuscular HGB Conc 35.4 g/dL (31.8-35.4); Mean Corpuscular Hemoglobin 35.7 pg (27.0-31.2); Mean Corpuscular Volume 100.8 fl (80-94); Mean Platelet Volume 8.2 fl (7.4-10.4); Monocytes # 1.3 K/mm3 (0.1-1.0); Monocytes % 8.2 % (1.7-9.3); Neutrophils # 12.4 K/mm3 (1.8-7.8); Neutrophils % 80.4 % (37.0-80.0); Platelet Count 163 K/mm3 (142-424); Potassium 5.4 mmoL/L (3.5-5.1); Red Blood Count 2.59 M/mm3 (4.60-6.20); Red Cell Distribution Width 15.2 % (11.5-17.5); Sodium 122 mmol/L (136-145); White Blood Count 15.4 K/mm3 (4.8-10.8)
[2020-10-06 07:58] LABS: MANUAL DIFFERENTIAL MANUAL DIFFERENTIAL (MANUAL DIFF)
[2020-10-06 08:00] VITALS: BP 98/56; PULSE 71; RESP 15; TEMP 36.4; O2SAT 90
--- NOTE | 2020-10-06 08:06 | HMH.ACPN2 ---
Internal Medicine - PN: Subj *Date: 10/06/20 *Time: 13:00 Interval history: 64-year-old male patient sitting up in bed resting quietly with eyes open. He denies any respiratory distress during the night, reports he is currently pain-free. He did have a paracentesis yesterday and reports feeling much better after. Still awaiting bed at . 10/05/20: US PARACENTESIS Approximately 8900 mL of serous fluid was drained. The patient tolerated the procedure well and left the radiology suite in stable condition. FINDINGS: Diffuse ascites IMPRESSION: Successful sonographic guided paracentesis without complication. Dictated by: Gopal Loya Exam Vital signs and Labs for Last 24 Hours: Temp Pulse Resp BP Pulse Ox 97.8 F 79 17 109/54 L 97 10/05/20 20:00 10/05/20 20:00 10/05/20 20:00 10/05/20 20:00 10/05/20 20:00 Laboratory Results - last 24 hr 10/05/20 07:43: Total Counted 100, Neutrophils % (Manual) 84 H, Band Neutrophils % 3.0, Lymphocytes % (Manual) 9 L, Monocytes % (Manual) 4, Platelet Estimate Normal, [place] Bodies 2+, [place] Cells 1+ 10/05/20 07:43: Total Bilirubin 3.1 H, Direct Bilirubin 1.1 H, Conjugated Bilirubin 0.0, Indirect Bilirubin 2.0 H, Unconjugated Bilirubin 1.9 H, AST 203 H D, ALT 192 H D, Alkaline Phosphatase 83, Total Protein 5.7 L, Albumin 2.9 L 10/05/20 12:15: Lactate 2.6 H 10/05/20 14:50: Lactate 3.4 H 10/05/20 16:15: Fluid Source Paracentesis fluid, Fluid Volume 8, Fluid Appearance Slightly cloudy, Fluid RBC (Auto) < 10, Fld Tot Nucleated Cell 50, Fld Polynuclear WBCs % 0, Fld Mononuclear WBCs % 0 10/06/20 06:01: WBC 15.4 H, RBC 2.59 L, Hct 26.1 L, MCV 100.8 H, MCH 35.7 H, MCHC 35.4, RDW 15.2, Plt Count 163, MPV 8.2, Neut % (Auto) 80.4 H, Lymph % (Auto) 10.2, [place] % (Auto) 8.2, Eos % (Auto) 1.1, Baso % (Auto) 0.1, Neut # (Auto) 12.4 H, Lymph # (Auto) 1.6, [place] # (Auto) 1.3 H, Eos # (Auto) 0.2, Baso # (Auto) 0.0 10/06/20 06:01: Sodium 122 L, Potassium 5.4 H, Chloride 95 L, Carbon Dioxide 24, Anion Gap 8.4, BUN 60 H, Creatinine 0.80, Estimated Creat Clear 85, Estimated GFR 97, Est GFR ( Amer) 117, Glucose 94 D, Calcium 9.4 I & O for Last 24 hours: Intake & Output 10/03/20 10/04/20 10/05/20 10/06/20 23:59 23:59 23:59 23:59 Intake Total 2368 / 2608 3400 / 3400 1791 / 1791 Output Total 600 / 600 Balance 2368 / 2608 2800 / 2800 1791 / 1791 Weight 179 lb 3 oz 179 lb 2.997 oz - Constitutional no acute distress, chronically ill appearing - *Routine HEENT Exam Head: Present: normocephalic Eye: Present: EOMI ENT: Present: mucous membranes moist - *Routine Neck Exam Present: trachea midline. Absent: tracheal deviation - *Routine Respiratory Exam Present: CTA bilaterally. Absent: accessory muscle use - *Routine Cardiovascular Exam Present: RRR - *Routine Abdominal Exam Present: soft, normoactive bowel sounds, distended. Absent: tenderness - *Routine Extremities Exam Present: full ROM, pulses intact. Absent: cyanosis, calf tenderness - *Routine Skin Exam Present: intact, dry, warm, jaundice. Absent: cyanosis, erythema - *Routine Neurological Exam Present: alert, oriented X3. Absent: motor deficit - Routine Psychiatric Exam Present: normal affect, normal thought process. Absent: auditory hallucinations, visual hallucinations Assessment and Plan (1) Hyponatremia Status: Acute Category: Medical Code(s): E87.1 - Hypo-osmolality and hyponatremia (2) SBP (spontaneous bacterial peritonitis) Status: Acute Category: Medical Code(s): K65.2 - Spontaneous bacterial peritonitis (3) Severe sepsis with acute organ dysfunction Status: Acute Category: Medical Code(s): A41.9 - Sepsis, unspecified organism; R65.20 - Severe sepsis without septic shock (4) Ascites Status: Chronic Qualifiers: Ascites type: due to alcoholic cirrhosis Qualified Code(s): K70.31 - Alcoholic cirrhosis of liver with ascites Category: Medical Code(s): R18.8
[2020-10-06 08:08] LABS: Hemoglobin 9.2 g/dL (14.1-18.0)
[2020-10-06 09:20] LABS: Alanine Aminotransferase 270 U/L (12-78); Alkaline Phosphatase 77 U/L (38-126); Aspartate Amino Transferase 260 U/L (17-59); Bilirubin,Direct 1.1 mg/dl (0.0-0.4); Bilirubin,Indirect 1.6 mg/dL (0.0-0.9); Bilirubin,Total 2.7 mg/dl (0.2-1.3); Bilirubin,Unconjugated 1.7 mg/dL (0.0-1.1); Total Protein,Serum 5.4 g/dl (6.3-8.2)
--- NOTE | 2020-10-06 10:27 | HMH.ACPN ---
Internal Medicine - PN: Subj *Date: 10/06/20 *Time: 10:27 Exam Vital signs and Labs for Last 24 Hours: Temp Pulse Resp BP Pulse Ox 97.6 F 71 15 98/56 L 90 L 10/06/20 08:00 10/06/20 08:00 10/06/20 08:00 10/06/20 08:00 10/06/20 08:00 Laboratory Results - last 24 hr 10/05/20 07:43: Total Bilirubin 3.1 H, Direct Bilirubin 1.1 H, Conjugated Bilirubin 0.0, Indirect Bilirubin 2.0 H, Unconjugated Bilirubin 1.9 H, AST 203 H D, ALT 192 H D, Alkaline Phosphatase 83, Total Protein 5.7 L, Albumin 2.9 L 10/05/20 12:15: Lactate 2.6 H 10/05/20 14:50: Lactate 3.4 H 10/05/20 16:15: Fluid Source Paracentesis fluid, Fluid Volume 8, Fluid Appearance Slightly cloudy, Fluid RBC (Auto) < 10, Fld Tot Nucleated Cell 50, Fld Polynuclear WBCs % 0, Fld Mononuclear WBCs % 0 10/06/20 06:01: WBC 15.4 H, RBC 2.59 L, Hgb 9.2 L D, Hct 26.1 L, MCV 100.8 H, MCH 35.7 H, MCHC 35.4, RDW 15.2, Plt Count 163, MPV 8.2, Neut % (Auto) 80.4 H, Lymph % (Auto) 10.2, [place] % (Auto) 8.2, Eos % (Auto) 1.1, Baso % (Auto) 0.1, Neut # (Auto) 12.4 H, Lymph # (Auto) 1.6, [place] # (Auto) 1.3 H, Eos # (Auto) 0.2, Baso # (Auto) 0.0 10/06/20 06:01: Sodium 122 L, Potassium 5.4 H, Chloride 95 L, Carbon Dioxide 24, Anion Gap 8.4, BUN 60 H, Creatinine 0.80, Estimated Creat Clear 85, Estimated GFR 97, Est GFR ( Amer) 117, Glucose 94 D, Calcium 9.4 10/06/20 06:01: Total Bilirubin 2.7 H, Direct Bilirubin 1.1 H, Conjugated Bilirubin 0.0, Indirect Bilirubin 1.6 H, Unconjugated Bilirubin 1.7 H, AST 260 H D, ALT 270 H D, Alkaline Phosphatase 77, Total Protein 5.4 L, Albumin 3.0 L I & O for Last 24 hours: Intake & Output 10/03/20 10/04/20 10/05/20 10/06/20 23:59 23:59 23:59 23:59 Intake Total 2368 / 2608 3400 / 3400 1791 / 1791 Output Total 600 / 600 Balance 2368 / 2608 2800 / 2800 1790 / 179 Weight 81.278 kg 81.278 kg Assessment and Plan (1) Hyponatremia Status: Acute Category: Medical Code(s): E87.1 - Hypo-osmolality and hyponatremia (2) SBP (spontaneous bacterial peritonitis) Status: Acute Category: Medical Code(s): K65.2 - Spontaneous bacterial peritonitis (3) Severe sepsis with acute organ dysfunction Status: Acute Category: Medical Code(s): A41.9 - Sepsis, unspecified organism; R65.20 - Severe sepsis without septic shock (4) Ascites Status: Chronic Qualifiers: Ascites type: due to alcoholic cirrhosis Qualified Code(s): K70.31 - Alcoholic cirrhosis of liver with ascites Category: Medical Code(s): R18.8 - Other ascites (5) Cirrhosis Status: Chronic Qualifiers: Hepatic cirrhosis type: unspecified hepatic cirrhosis Ascites presence: with ascites Qualified Code(s): K74.60 - Unspecified cirrhosis of liver; R18.8 - Other ascites Category: Medical Code(s): K74.60 - Unspecified cirrhosis of liver (6) Abdominal pain with vomiting Status: Acute Category: Medical Code(s): R10.9 - Unspecified abdominal pain; R11.10 - Vomiting, unspecified (7) Hepatitis C Status: Acute Qualifiers: Viral hepatitis chronicity: unspecified Hepatic coma status: without hepatic coma Qualified Code(s): B19.20 - Unspecified viral hepatitis C without hepatic coma Category: Medical Code(s): B19.20 - Unspecified viral hepatitis C without hepatic coma The patient's infection will respond to the chosen ABx?: Yes (EMPIRIC THERAPY) Is the patient receiving the right drug, dose, and route?: Yes Could a more targeted ABx be ordered?: No (CULTURES PENDING)
[2020-10-06 10:46] LABS: Eosinophils % 3 % (0-3); Hypochromasia 1+; Lymphocytes % 2 % (10-50); Macrocytosis 2+; Monocytes % 7 % (2-9); Neutrophils % 87 % (42-76); Platelet Estimate Normal; Poikilocytosis 1+; Total Cells Counted 100
--- NOTE | 2020-10-06 10:57 | PC.NURSE ---
Spoke with Nataly @ [facility], still awaiting bed @ [phone].
[2020-10-06 13:20] LABS: Amylase 92 U/L (30-110); Lipase 472 U/L (23-300)
[2020-10-06 16:00] VITALS: BP 105/58; PULSE 84; RESP 17; TEMP 36.6; O2SAT 99
--- NOTE | 2020-10-06 16:32 | PC.NURSE ---
Pt is alert and oriented and able to make needs known. RR even and unlabored. Still awaiting bed at this time @ [facility]. VSS. Remains on RA. NAD. CB in reach. Ascites to abd noted, but pt states he feels better than he did. is at bedside at this time. S1,S2, bs hyperactive.
[2020-10-06 20:00] VITALS: BP 106/63; PULSE 75; RESP 18; TEMP 36.6; O2SAT 97
[2020-10-07] VITALS: BP 118/69; PULSE 79; RESP 16; TEMP 36.6; O2SAT 98
--- NOTE | 2020-10-07 04:18 | PC.NURSE ---
Pt A&O x4 and has rested well this shift. Lungs CTA, on room air. Bowel sounds x4, abd soft, nontender, and round. Pt able to ambulate independently to the BR. tolerates well. Pt reports feeling better today. IV patent, NS @ 50. VSS, call light in reach, no concerns at this time.
[2020-10-07 05:02] VITALS: BMI 24.1
[2020-10-07 06:28] LABS: Basophils % 0.2 % (0.1-2.0); Eosinophils # 0.3 K/mm3 (0.0-0.4); Eosinophils % 2.1 % (0.1-12.0); Hemoglobin 9.5 g/dL (14.1-18.0); Lymphocytes # 1.4 K/mm3 (0.7-4.5); Lymphocytes % 8.7 % (10-50); Mean Corpuscular HGB Conc 35.2 g/dL (31.8-35.4); Mean Corpuscular Hemoglobin 36.1 pg (27.0-31.2); Mean Corpuscular Volume 102.6 fl (80-94); Mean Platelet Volume 8.4 fl (7.4-10.4); Monocytes # 1.4 K/mm3 (0.1-1.0); Monocytes % 8.8 % (1.7-9.3); Neutrophils # 12.7 K/mm3 (1.8-7.8); Neutrophils % 80.1 % (37.0-80.0); Platelet Count 186 K/mm3 (142-424); Red Blood Count 2.64 M/mm3 (4.60-6.20); White Blood Count 15.9 K/mm3 (4.8-10.8)
[2020-10-07 06:30] LABS: Chloride 96 mmol/L (98-107); MANUAL DIFFERENTIAL MANUAL DIFFERENTIAL (MANUAL DIFF); Sodium 122 mmol/L (136-145)
[2020-10-07 06:31] LABS: Potassium 5.1 mmoL/L (3.5-5.1)
[2020-10-07 06:33] LABS: Anion Gap 7.1 mEq/L (5-15); Blood Urea Nitrogen 52 mg/dl (9-20); Carbon Dioxide 24 mmol/L (22.0-30.0); Creatinine Clearance Estimated 82 mL/min (50-200); Estimated Glomerular Filt Rate 97 ml/min (>60); GFR (African American) 117 ML/MIN (>60)
[2020-10-07 06:34] LABS: Calcium 9.3 mg/dl (8.4-10.2); Glucose 109 mg/dl (74-100)
[2020-10-07 07:47] LABS: Anisocytosis 1+; Lymphocytes % 14 % (10-50); Macrocytosis 1+; Monocytes % 7 % (2-9); Neutrophils % 79 % (42-76); Platelet Estimate Normal; Total Cells Counted 100
[2020-10-07 08:00] VITALS: BP 105/57; PULSE 79; RESP 18; TEMP 36.4; O2SAT 98
--- NOTE | 2020-10-07 09:54 | PC.NURSE ---
Spoke w/ Sabino at , no bed available @ this time.
--- NOTE | 2020-10-07 10:01 | PC.NURSE ---
Noted upon report rounds that site where pt had paracentesis on 10/05 was leaking sero-sang fluid. Area cleaned and dressing placed. made aware of this during AM rounds.
[2020-10-07 10:26] LABS: Albumin, Body Fluid 0.3 g/dL (Not Estab.); Glucose, Body Fluid 144 mg/dL (.); LD, Body Fluid 58 IU/L (.); Protein, Body Fluid 0.6 g/dL (.)
--- NOTE | 2020-10-07 12:42 | HMH.ACPN2 ---
Internal Medicine - PN: Subj *Date: 10/07/20 *Time: 20:21 Interval history: 64-year-old male patient sitting up in bed resting quietly at bedside, he reports he still feeling okay abdomen is distended, slightly tender. Discussed with patient's medical condition, she is aware of the poor prognosis. She denies any questions at present, instructed to call office for any questions, concerns, needs in the future she verbalizes understanding and has office number. Exam Vital signs and Labs for Last 24 Hours: Temp Pulse Resp BP Pulse Ox 97.6 F 79 18 105/57 L 98 10/07/20 08:00 10/07/20 08:00 10/07/20 08:00 10/07/20 08:00 10/07/20 08:00 Laboratory Results - last 24 hr 10/05/20 16:15: Fluid Glucose 144, Fluid Total Protein 0.6, Fluid Albumin 0.3, Fluid LDH 58 10/06/20 06:01: Amylase 92, Lipase 472 H 10/07/20 05:56: WBC 15.9 H, RBC 2.64 L, Hgb 9.5 L, Hct 27.0 L, MCV 102.6 H, MCH 36.1 H, MCHC 35.2, RDW 16.0, Plt Count 186, MPV 8.4, Neut % (Auto) 80.1 H, Lymph % (Auto) 8.7 L, [place] % (Auto) 8.8, Eos % (Auto) 2.1, Baso % (Auto) 0.2, Neut # (Auto) 12.7 H, Lymph # (Auto) 1.4, [place] # (Auto) 1.4 H, Eos # (Auto) 0.3, Baso # (Auto) 0.0, Total Counted 100, Neutrophils % (Manual) 79 H, Lymphocytes % (Manual) 14, Monocytes % (Manual) 7, Platelet Estimate Normal, Anisocytosis 1+, Macrocytosis 1+ 10/07/20 05:56: Sodium 122 L, Potassium 5.1, Chloride 96 L, Carbon Dioxide 24, Anion Gap 7.1, BUN 52 H, Creatinine 0.80, Estimated Creat Clear 82, Estimated GFR 97, Est GFR ( Amer) 117, Glucose 109 H, Calcium 9.3 I & O for Last 24 hours: Intake & Output 10/04/20 10/05/20 10/06/20 10/07/20 23:59 23:59 23:59 23:59 Intake Total 3400 / 3400 1791 / 1791 885 / 885 120 / 120 Output Total 600 / 600 Balance 2800 / 2800 1791 / 1791 885 / 885 120 / 120 Weight 179 lb 2.997 oz 172 lb 8 oz Microbiology Reports for the Last 24 Hours: Microbiology 10/05/20 16:15 Ascites Fluid - Abdominal Gram Stain - Final 10/05/20 16:15 Ascites Fluid - Abdominal Body Fluid Culture - Preliminary NO GROWTH AFTER 24 HOURS - Constitutional no acute distress, chronically ill appearing - *Routine HEENT Exam Head: Present: normocephalic Eye: Present: EOMI ENT: Present: mucous membranes moist - *Routine Neck Exam Present: trachea midline. Absent: tracheal deviation - *Routine Respiratory Exam Present: CTA bilaterally. Absent: accessory muscle use - *Routine Cardiovascular Exam Present: RRR - *Routine Abdominal Exam Present: normoactive bowel sounds, tenderness, distended - *Routine Extremities Exam Present: full ROM, pulses intact. Absent: cyanosis, clubbing, edema, calf tenderness - *Routine Skin Exam Present: intact, erythema, dry, warm, jaundice. Absent: cyanosis - *Routine Neurological Exam Present: alert, oriented X3. Absent: motor deficit - Routine Psychiatric Exam Present: normal affect, normal thought process, cooperative. Absent: auditory hallucinations, visual hallucinations Assessment and Plan (1) Hyponatremia Status: Acute Category: Medical Code(s): E87.1 - Hypo-osmolality and hyponatremia (2) SBP (spontaneous bacterial peritonitis) Status: Acute Category: Medical Code(s): K65.2 - Spontaneous bacterial peritonitis (3) Severe sepsis with acute organ dysfunction Status: Acute Category: Medical Code(s): A41.9 - Sepsis, unspecified organism; R65.20 - Severe sepsis without septic shock (4) Ascites Status: Chronic Qualifiers: Ascites type: due to alcoholic cirrhosis Qualified Code(s): K70.31 - Alcoholic cirrhosis of liver with ascites Category: Medical Code(s): R18.8 - Other ascites (5) Cirrhosis Status: Chronic Qualifiers: Hepatic cirrhosis type: unspecified hepatic cirrhosis Ascites presence: with ascites Qualified Code(s): K74.60 - Unspecified cirrhosis of liver; R18.8 - Other ascites Category: Medical Code(s): K74.6
[2020-10-07 14:43] LABS: Alanine Aminotransferase 262 U/L (12-78); Albumin Level 2.7 g/dl (3.5-5.0); Alkaline Phosphatase 78 U/L (38-126); Aspartate Amino Transferase 198 U/L (17-59); Bilirubin,Indirect 1.4 mg/dL (0.0-0.9); Bilirubin,Total 2.4 mg/dl (0.2-1.3); Bilirubin,Unconjugated 1.4 mg/dL (0.0-1.1); Total Protein,Serum 5.2 g/dl (6.3-8.2)
[2020-10-07 15:35] VITALS: BP 115/59; PULSE 69; RESP 18; TEMP 36.6; O2SAT 100
--- NOTE | 2020-10-07 16:27 | PC.NURSE ---
1627 - supervisor marble, Eileen Menezes,RN called @ this time w/ bed assignment. Pt will be going to [address], Room #582 # to call report is [phone]
--- NOTE | 2020-10-07 16:38 | PC.NURSE ---
Attempted to call report to [facility], arvin voss (Miranda) states that pt's nurse has stepped off the floor. Call back number provided to for report to be given.
--- NOTE | 2020-10-07 19:00 | PC.NURSE ---
Report called to receiving nurse @ @ [phone]. [facility] notified of transfer @ [phone], they have one pt in front of this one in line for transfer and then they will be coming to get pt.
[2020-10-07 20:00] VITALS: O2SAT 99
[2020-10-07 20:09] VITALS: BP 91/45; PULSE 87; RESP 17; TEMP 36.6; O2SAT 99
--- NOTE | 2020-10-07 23:28 | PC.NURSE ---
Awaiting for [facility] to transfer pt to [facility]
--- NOTE | 2020-10-07 23:41 | PC.NURSE ---
Updated [facility] that we are waiting for transfer from [facility].
[2020-10-07 23:52] VITALS: BP 110/59; PULSE 76; RESP 18; TEMP 36.7; O2SAT 91
--- NOTE | 2020-10-08 00:17 | PC.NURSE ---
Pt left floor at [phone] per [facility] for transfer to . Attempted to notify significant other per request but was not able to due to no answer and no voicemail.
== END 2020-10-08 00:06 | disposition short-term general hospital (02) | DRG 871 ==
LOC: ER 03:09 → 2ND 06:04
PROVIDERS: Nurse Practitioner Family; Admitting Provider Emergency Medicine; Emergency Provider Emergency Medicine; PCP Emergency Medicine; Visit Provider Emergency Medicine
DX: A41.9 Sepsis, unspecified organism (principal); K65.2 Spontaneous bacterial peritonitis; I42.9 Cardiomyopathy, unspecified; E87.1 Hypo-osmolality and hyponatremia; K70.31 Alcoholic cirrhosis of liver with ascites; B19.20 Unspecified viral hepatitis C without hepatic coma; I11.0 Hypertensive heart disease with heart failure; I50.9 Heart failure, unspecified; R65.20 Severe sepsis without septic shock; Z87.891 Personal history of nicotine dependence
CPT/HCPCS: 49082; 36415; 49083; 71046; 74177; 80048; 80053; 80076; 81001; 82042; 82140; 82150; 82803; 82945; 83605; 83615; 83690; 83735; 84145; 84155; 84484; 85007; 85025; 85610; 85651; 85730; 86140; 87040; 87070; 87205; 89051; 93005; 94640; 96365; 96366; 96375; 99284; J2405; P9047; Q9967; U0003

== ENCOUNTER 2020-10-21 08:58 | Emergency (ER) | payer MEDICARE, MEDICAID, SELFPAY ==
[2020-10-21 08:59] VITALS: BP 100/66; PULSE 78; RESP 22; TEMP 36.6; O2SAT 98; BMI 23.8
--- NOTE | 2020-10-21 09:27 | HMH.EDABDPAI ---
ED Disposition Clinical Impression: Ascites Disposition: Home, Self-Care Condition on Discharge: Good Instructions: DI for Acute Abdominal Pain Referrals: Ced Al MD [Primary Care Provider] - - Critical Care Critical Care Time: No Attestation: On 10/21/20, the high probability of a clinically significant, sudden or life threatening deterioration of the following system(s) required my full and direct attention, intervention and personal management. The time I documented below is in addition to time spent performing reported procedures but includes the following listed in this critical care notation. Medical Decision Making - Medical Records Medical records reviewed: Yes: I reviewed the patient's medical records. - Blaze Inquiry Pt receiving controlled substance: No Vital Signs: 10/21/20 08:59 10/21/20 10:23 10/21/20 10:30 Temperature 97.8 F Temperature Source Oral Pulse Rate 74 73 Pulse Rate [Radial] 78 Respiratory Rate 22 16 18 Blood Pressure 96/51 L 105/66 L Blood Pressure [Right Arm] 100/66 L Blood Pressure Mean 79 Blood Pressure Mean [Right Arm] 77 Blood Pressure Position Sitting Blood Pressure Position [Right Arm] Sitting 02 Sat by Pulse Oximetry 98 98 98 Oxygen Delivery Method Room Air Room Air - Lab Data Lab Results 10/21/20 09:23: WBC 6.5, RBC 2.50 L, Hgb 9.1 L, Hct 26.9 L, MCV 107.7 H, MCH 36.4 H, MCHC 33.8, RDW 15.5, Plt Count 98 L, MPV 8.5, Neut % (Auto) 80.7 H, Lymph % (Auto) 11.0, [place] % (Auto) 5.0, Eos % (Auto) 2.8, Baso % (Auto) 0.5, Neut # (Auto) 5.3, Lymph # (Auto) 0.7, [place] # (Auto) 0.3, Eos # (Auto) 0.2, Baso # (Auto) 0.0 10/21/20 09:23: PT 14.9 H, INR 1.29 H 10/21/20 09:23: Sodium 124 L, Potassium 4.4, Chloride 95 L, Carbon Dioxide 22, Anion Gap 11.4, BUN 28 H, Creatinine 0.90, Estimated Creat Clear 81, Estimated GFR 85, Est GFR ( Amer) 102, Glucose 132 H, Calcium 8.6, Total Bilirubin 4.6 H, AST 92 H, ALT 109 H, Alkaline Phosphatase 130 H, Total Protein 5.7 L, Albumin 3.4 L, Globulin 2.3, Albumin/Globulin Ratio 1.5 Result diagrams: 10/21/20 09:23 10/21/20 09:23 Orders (Tests/Meds): ED MEDICATIONS Discontinued Medications Generic Name Dose Route Start Last Admin Trade Name Roberto Carlos PRN Reason Stop Dose Admin Albumin Human 25 gm 10/21/20 10:23 10/21/20 10:29 Albumin 25% (12.5 Gm) Soln 50ml Bottle IV 10/21/20 10:24 25 gm ONCE ONE Administration ORDERS Category Date Time Status Paracentesis [US Paracentesis] Stat Ultrasound 10/21/20 10:18 Ordered Medical Decision Narrative: 64-year-old male with abdominal distention consistent with ascites. He is requesting abdominal paracentesis. Afebrile in the emergency department and no concern for SBP at this time. Laboratory evaluation was initiated and the patient will have IR drainage of paracentesis. Per 98 above the threshold for paracentesis. Paracentesis performed 5 L taken off patient feeling much better blood pressure stable afterward. He was given 1 dose of albumin in the emergency department. He does have low sodium however it is higher than prior visits recommend he follow-up for this. Discharged with return precautions Abdominal Pain HPI - General Chief Complaint: Abdominal Pain Stated Complaint: stomach pain Time Seen by Provider: 10/21/20 09:00 Mode of Arrival: Ambulatory Limitations: No Limitations Description of Symptoms (Recalled from ER Triage Doc. by RN): to ed per pvt car with c/o abd pain and swelling. pt states hx of cirrhosis and has to have paracentesis approx every 2 weeks. pt just d/sol from hosp sunday from hosp. pt denies fever, chills, nausea, vomiting. pt abd large distended - History of Present Illness HPI narrative: Cirrhosis presents with abdominal distention requesting paracentesis. Of note he has no abdominal pain or tenderness fever chills cough. He says that he last had his abdomen drained 10 days ago. He is set up for a
[2020-10-21 09:33] LABS: Basophils % 0.5 % (0.1-2.0); Eosinophils # 0.2 K/mm3 (0.0-0.4); Eosinophils % 2.8 % (0.1-12.0); Hematocrit 26.9 % (42.0-52.0); Hemoglobin 9.1 g/dL (14.1-18.0); Lymphocytes # 0.7 K/mm3 (0.7-4.5); Mean Corpuscular HGB Conc 33.8 g/dL (31.8-35.4); Mean Corpuscular Hemoglobin 36.4 pg (27.0-31.2); Mean Corpuscular Volume 107.7 fl (80-94); Mean Platelet Volume 8.5 fl (7.4-10.4); Monocytes # 0.3 K/mm3 (0.1-1.0); Neutrophils # 5.3 K/mm3 (1.8-7.8); Neutrophils % 80.7 % (37.0-80.0); Platelet Count 98 K/mm3 (142-424); Red Cell Distribution Width 15.5 % (11.5-17.5); White Blood Count 6.5 K/mm3 (4.8-10.8)
[2020-10-21 09:43] LABS: Chloride 95 mmol/L (98-107)
[2020-10-21 09:44] LABS: Potassium 4.4 mmoL/L (3.5-5.1); Sodium 124 mmol/L (136-145)
[2020-10-21 09:46] LABS: Alanine Aminotransferase 109 U/L (12-78); Alkaline Phosphatase 130 U/L (38-126); Aspartate Amino Transferase 92 U/L (17-59); Bilirubin,Total 4.6 mg/dl (0.2-1.3); Blood Urea Nitrogen 28 mg/dl (9-20); Creatinine Clearance Estimated 81 mL/min (50-200); Estimated Glomerular Filt Rate 85 ml/min (>60); GFR (African American) 102 ML/MIN (>60)
[2020-10-21 09:47] LABS: Albumin Level 3.4 g/dl (3.5-5.0); Albumin/Globulin Ratio 1.5 (1.1-1.8); Anion Gap 11.4 mEq/L (5-15); Calcium 8.6 mg/dl (8.4-10.2); Carbon Dioxide 22 mmol/L (22.0-30.0); Globulin 2.3 g/dL (1.3-3.2); Glucose 132 mg/dl (74-100); Total Protein,Serum 5.7 g/dl (6.3-8.2)
[2020-10-21 09:49] LABS: Prothrombin Time 14.9 seconds (10.1-12.5)
[2020-10-21 09:50] LABS: INR 1.29 (0.9-1.1)
--- NOTE | 2020-10-21 10:18 | US_ITS ---
PROCEDURE: US PARACENTESIS CLINICAL INDICATION: ASCITES COMPARISON: No exams were available for comparison TECHNIQUE: Informed consent was obtain prior to procedure. After appropriate Time out, under aseptic conditions and local anesthesia with 1% buffered lidocaine using sonographic guidance a 6 Kyrgyz Kqfd-Q-Zsjqehqk catheter was inserted into the largest pocket of fluid localized in the right lower quadrant. Approximately 5000 mL of serous fluid was drained. The patient tolerated the procedure well and left the radiology suite in stable condition. FINDINGS: Diffuse ascites IMPRESSION: Successful sonographic guided paracentesis without complication. Dictated by: Gopal Loya MD 10/22/2020 16:39 Gopal Loya MD in [place] 10/22/2020 16:39
[2020-10-21 10:23] VITALS: BP 96/51; PULSE 74; RESP 16; O2SAT 98
[2020-10-21 10:30] VITALS: BP 105/66; PULSE 73; RESP 18; O2SAT 98
--- NOTE | 2020-10-21 11:16 | PC.NURSE ---
PT TO ULTRASOUND PER WHEELCHAIR
--- NOTE | 2020-10-21 12:33 | PC.NURSE ---
RETURN FROM XRAY
[2020-10-21 12:36] VITALS: BP 116/72
[2020-10-21 12:59] VITALS: BP 116/72; PULSE 73; RESP 18; TEMP 36.6; O2SAT 98
== END 2020-10-21 13:02 | disposition home or self-care (01) ==
PROVIDERS: Emergency Provider Emergency Medicine; PCP Emergency Medicine
DX: K70.31 Alcoholic cirrhosis of liver with ascites (principal); F41.9 Anxiety disorder, unspecified; Z87.891 Personal history of nicotine dependence; Z79.899 Other long term (current) drug therapy
CPT/HCPCS: 49083; 80053; 85025; 85610; 96365; 99284; P9047

== ENCOUNTER 2020-10-29 10:00 | Outpatient (CLI) | payer MEDICARE, MEDICAID, SELFPAY ==
--- NOTE | 2020-10-29 10:02 | US_ITS ---
PROCEDURE: US PARACENTESIS CLINICAL INDICATION: ASCITES, HEPATITIS C COMPARISON: No exams were available for comparison TECHNIQUE: Informed consent was obtain prior to procedure. After appropriate Time out, under aseptic conditions and local anesthesia with 1% buffered lidocaine using sonographic guidance a 6 Frisian Ehui-G-Dciejltf catheter was inserted into the largest pocket of fluid localized in the right lower quadrant. Approximately 10 liters of serous fluid was drained. The patient tolerated the procedure well and left the radiology suite in stable condition. FINDINGS: Large ascites is noted with multiple internal echogenicity. Serous fluid noted. IMPRESSION: Successful sonographic guided paracentesis without complication. Dictated by: Loly Kuhn 10/29/2020 13:05 Loly Kuhn in [facility] 10/29/2020 13:05
[2020-10-29 12:00] VITALS: BP 113/61; PULSE 72; RESP 18; TEMP 36.3; O2SAT 96
[2020-10-29 14:35] VITALS: BP 100/58; PULSE 74; RESP 18
== END 2020-10-29 14:35 | disposition home or self-care (01) ==
LOC: RAD 10:00 → INF 12:09
PROVIDERS: PCP Emergency Medicine; Visit Provider Nurse Practitioner Family
DX: R18.8 Other ascites (principal); B18.2 Chronic viral hepatitis C; K74.60 Unspecified cirrhosis of liver
CPT/HCPCS: 49083; 96365; 96366; P9047

== ENCOUNTER → 2021-01-22 12:00 | Outpatient (CLI) | payer MEDICARE, MEDICAID, SELFPAY ==
[2021-01-22 12:37] LABS: Hematocrit 25.4 % (42.0-52.0); Hemoglobin 8.5 g/dL (14.1-18.0); Mean Corpuscular HGB Conc 33.4 g/dL (31.8-35.4); Mean Corpuscular Hemoglobin 33.1 pg (27.0-31.2); Mean Corpuscular Volume 99.1 fl (80-94); Platelet Count 220 K/mm3 (142-424); Red Blood Count 2.56 M/mm3 (4.60-6.20); Red Cell Distribution Width 17.2 % (11.5-17.5); White Blood Count 6.6 K/mm3 (4.8-10.8)
[2021-01-22 13:32] LABS: Alanine Aminotransferase 17 U/L (12-78); Albumin Level 3.5 g/dl (3.5-5.0); Albumin/Globulin Ratio 1.7 (1.1-1.8); Alkaline Phosphatase 75 U/L (38-126); Anion Gap 10.3 mEq/L (5-15); Aspartate Amino Transferase 21 U/L (17-59); Bilirubin,Total 0.5 mg/dl (0.2-1.3); Blood Urea Nitrogen 25 mg/dl (9-20); Calcium 8.8 mg/dl (8.4-10.2); Carbon Dioxide 24 mmol/L (22.0-30.0); Chloride 106 mmol/L (98-107); Estimated Glomerular Filt Rate 75 ml/min (>60); GFR (African American) 90 ML/MIN (>60); Gamma Glutamyl Transpeptidase 21 U/L (15-73); Globulin 2.1 g/dL (1.3-3.2); Glucose 112 mg/dl (74-100); Magnesium 1.8 mg/dl (1.6-2.3); Potassium 5.3 mmoL/L (3.5-5.1); Sodium 135 mmol/L (136-145); Total Protein,Serum 5.6 g/dl (6.3-8.2)
== END ==
PROVIDERS: Visit Provider Transplant Surgery
DX: Z94.4 Liver transplant status (principal)
CPT/HCPCS: 36415; 80053; 80158; 82977; 83735; 85014; 85018; 85048; 85049

== ENCOUNTER 2021-02-01 11:26 | Outpatient (CLI) | payer MEDICARE, MEDICAID, SELFPAY ==
[2021-02-01] VITALS (11 sets, daily range): BP systolic 153–172; BP diastolic 72–96; PULSE 63–78; RESP 18–20; TEMP 36.1–36.3; O2SAT 96–99; BMI 21.7
[2021-02-01 12:19] LABS: Hematocrit 23.4 % (42.0-52.0); Hemoglobin 7.7 g/dL (14.1-18.0)
[2021-02-01 16:46] LABS: Hematocrit 27.3 % (42.0-52.0)
== END 2021-02-01 16:25 | disposition home or self-care (01) ==
LOC: INF 11:30
PROVIDERS: PCP Emergency Medicine
DX: D64.9 Anemia, unspecified (principal)
CPT/HCPCS: 36430; 85014; 85018; 86850; P9016

== ENCOUNTER → 2021-02-02 08:25 | Outpatient (CLI) | payer MEDICARE, MEDICAID, SELFPAY ==
--- NOTE | 2021-02-02 | CA_ITS ---
APPROVED REPORT Bilateral Lower Extremity Venous Study for DVT. 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 Quit smoking 1 year ago. Risk Factors Post OP Medications Aspirin 81 mg ASA daily Vein Imaging CFV (R): compressive, spontaneous, phasic, augmentation FEM (R): compressive, spontaneous, phasic, augmentation POP (R): compressive, spontaneous, phasic, augmentation PTV (R): Compressible GSV (R): compressive, spontaneous, phasic, augmentation Peroneals (R):Compressible GAS (R): Compressible CFV (L): compressive, spontaneous, phasic, augmentation FEM (L): compressive, spontaneous, phasic, augmentation POP (L): compressive, spontaneous, phasic, augmentation PTV (L): Compressible GSV (L): compressive, spontaneous, phasic, augmentation Peroneals (L):Compressible GAS (L): Compressible Findings No evidence of DVT or superficial thrombophlebitis in the veins scanned of the right lower extremity. No evidence of DVT or superficial thrombophlebitis in the veins scanned of the left lower extremity. Edema of the subcutaneous fat and even the muscle is noted in both extremities. Conclusion No evidence of DVT or superficial thrombophlebitis in the veins scanned of the right lower extremity. No evidence of DVT or superficial thrombophlebitis in the veins scanned of the left lower extremity. Edema of the subcutaneous fat and even the muscle is noted in both extremities. Electronically signed by : Yolande Stoner MD 02/04/2021 16:10:48
== END ==
PROVIDERS: PCP Emergency Medicine; Visit Provider Transplant Surgery
DX: M79.662 Pain in left lower leg (principal); M79.89 Other specified soft tissue disorders
CPT/HCPCS: 93970

== ENCOUNTER → 2021-02-21 10:34 | Outpatient (CLI) | payer MEDICARE, MEDICAID, SELFPAY ==
[2021-02-21 11:14] LABS: Hematocrit 26.9 % (42.0-52.0); Hemoglobin 9.1 g/dL (14.1-18.0); Mean Corpuscular HGB Conc 33.9 g/dL (31.8-35.4); Mean Corpuscular Hemoglobin 34.1 pg (27.0-31.2); Mean Corpuscular Volume 100.7 fl (80-94); Platelet Count 231 K/mm3 (142-424); Red Blood Count 2.67 M/mm3 (4.60-6.20); Red Cell Distribution Width 16.6 % (11.5-17.5); White Blood Count 6.6 K/mm3 (4.8-10.8)
[2021-02-21 11:54] LABS: Alanine Aminotransferase 15 U/L (12-78); Albumin Level 3.9 g/dl (3.5-5.0); Alkaline Phosphatase 70 U/L (38-126); Aspartate Amino Transferase 23 U/L (17-59); Bilirubin,Total 0.7 mg/dl (0.2-1.3); Blood Urea Nitrogen 20 mg/dl (9-20); Calcium 8.9 mg/dl (8.4-10.2); Carbon Dioxide 29 mmol/L (22.0-30.0); Chloride 103 mmol/L (98-107); Estimated Glomerular Filt Rate 67 ml/min (>60); GFR (African American) 81 ML/MIN (>60); Gamma Glutamyl Transpeptidase 19 U/L (15-73); Glucose 96 mg/dl (74-100); Magnesium 1.5 mg/dl (1.6-2.3); Sodium 139 mmol/L (136-145); Total Protein,Serum 5.9 g/dl (6.3-8.2)
== END ==
PROVIDERS: Visit Provider Nurse Practitioner Family
DX: Z01.812 Encounter for preprocedural laboratory examination (principal); Z11.52 Encounter for screening for COVID-19; Z51.81 Encounter for therapeutic drug level monitoring; Z94.4 Liver transplant status; Z79.899 Other long term (current) drug therapy
CPT/HCPCS: 36415; 80053; 82977; 83735; 85014; 85018; 85048; 85049; C9803; U0003; U0005

== ENCOUNTER → 2021-03-28 10:24 | Outpatient (CLI) | payer MEDICARE, MEDICAID, SELFPAY ==
[2021-03-28 11:14] LABS: Basophils % 0.7 % (0.1-2.0); Eosinophils # 0.2 K/mm3 (0.0-0.4); Eosinophils % 4.5 % (0.1-12.0); Hematocrit 33.4 % (42.0-52.0); Hemoglobin 11.4 g/dL (14.1-18.0); Lymphocytes # 0.9 K/mm3 (0.7-4.5); Lymphocytes % 18.6 % (10-50); Mean Corpuscular HGB Conc 34.2 g/dL (31.8-35.4); Mean Corpuscular Hemoglobin 33.3 pg (27.0-31.2); Mean Corpuscular Volume 97.4 fl (80-94); Mean Platelet Volume 7.6 fl (7.4-10.4); Monocytes # 0.4 K/mm3 (0.1-1.0); Monocytes % 9.3 % (1.7-9.3); Neutrophils # 3.2 K/mm3 (1.8-7.8); Neutrophils % 66.9 % (37.0-80.0); Platelet Count 181 K/mm3 (142-424); Red Blood Count 3.42 M/mm3 (4.60-6.20); Red Cell Distribution Width 13.3 % (11.5-17.5); White Blood Count 4.8 K/mm3 (4.8-10.8)
[2021-03-28 11:24] LABS: Alanine Aminotransferase 26 U/L (12-78); Albumin Level 4.4 g/dl (3.5-5.0); Albumin/Globulin Ratio 2.1 (1.1-1.8); Alkaline Phosphatase 83 U/L (38-126); Anion Gap 11.6 mEq/L (5-15); Aspartate Amino Transferase 28 U/L (17-59); Bilirubin,Total 0.5 mg/dl (0.2-1.3); Blood Urea Nitrogen 25 mg/dl (9-20); Calcium 9.6 mg/dl (8.4-10.2); Carbon Dioxide 29 mmol/L (22.0-30.0); Chloride 101 mmol/L (98-107); Estimated Glomerular Filt Rate 55 ml/min (>60); GFR (African American) 67 ML/MIN (>60); Gamma Glutamyl Transpeptidase 19 U/L (15-73); Globulin 2.1 g/dL (1.3-3.2); Glucose 123 mg/dl (74-100); Magnesium 1.7 mg/dl (1.6-2.3); Potassium 3.6 mmoL/L (3.5-5.1); Sodium 138 mmol/L (136-145); Total Protein,Serum 6.5 g/dl (6.3-8.2)
== END ==
PROVIDERS: Visit Provider Physician Assistant
DX: Z94.4 Liver transplant status (principal)
CPT/HCPCS: 36415; 80053; 82977; 83735; 85025; 87522

== ENCOUNTER → 2021-05-11 13:40 | Outpatient (CLI) | payer MEDICARE, OTHER, MEDICAID, SELFPAY ==
[2021-05-11 14:13] LABS: Hematocrit 31.9 % (42.0-52.0); Hemoglobin 11.1 g/dL (14.1-18.0); Mean Corpuscular HGB Conc 34.7 g/dL (31.8-35.4); Mean Corpuscular Hemoglobin 33.1 pg (27.0-31.2); Mean Corpuscular Volume 95.3 fl (80-94); Platelet Count 190 K/mm3 (142-424); Red Blood Count 3.34 M/mm3 (4.60-6.20); Red Cell Distribution Width 13.6 % (11.5-17.5); White Blood Count 6.6 K/mm3 (4.8-10.8)
[2021-05-11 15:40] LABS: Chloride 105 mmol/L (98-107); Potassium 5.1 mmoL/L (3.5-5.1); Sodium 136 mmol/L (136-145)
[2021-05-11 15:42] LABS: Alanine Aminotransferase 14 U/L (12-78); Aspartate Amino Transferase 27 U/L (17-59); Blood Urea Nitrogen 32 mg/dl (9-20); Estimated Glomerular Filt Rate 41 ml/min (>60); GFR (African American) 49 ML/MIN (>60)
[2021-05-11 15:43] LABS: Albumin Level 4.7 g/dl (3.5-5.0); Alkaline Phosphatase 118 U/L (38-126); Anion Gap 12.1 mEq/L (5-15); Bilirubin,Total 0.9 mg/dl (0.2-1.3); Calcium 9.3 mg/dl (8.4-10.2); Carbon Dioxide 24 mmol/L (22.0-30.0); Globulin 2.3 g/dL (1.3-3.2); Glucose 101 mg/dl (74-100); Magnesium 2.1 mg/dl (1.6-2.3)
[2021-05-11 16:10] LABS: Gamma Glutamyl Transpeptidase 19 U/L (15-73)
== END ==
PROVIDERS: PCP Emergency Medicine; Visit Provider Transplant Surgery
DX: Z94.4 Liver transplant status (principal); Z79.899 Other long term (current) drug therapy
CPT/HCPCS: 36415; 80053; 82977; 83735; 85014; 85018; 85048; 85049; 87522

== ENCOUNTER → 2021-07-08 13:19 | Outpatient (CLI) | payer MEDICARE, MEDICAID, SELFPAY ==
[2021-07-08 13:59] LABS: Hemoglobin 10.9 g/dL (14.1-18.0); Mean Corpuscular HGB Conc 35.2 g/dL (31.8-35.4); Mean Corpuscular Hemoglobin 32.9 pg (27.0-31.2); Mean Corpuscular Volume 93.5 fl (80-94); Platelet Count 185 K/mm3 (142-424); Red Blood Count 3.31 M/mm3 (4.60-6.20); Red Cell Distribution Width 13.5 % (11.5-17.5); White Blood Count 7.5 K/mm3 (4.8-10.8)
[2021-07-08 14:45] LABS: Alanine Aminotransferase 16 U/L (12-78); Albumin Level 4.3 g/dl (3.5-5.0); Albumin/Globulin Ratio 2.3 (1.1-1.8); Alkaline Phosphatase 108 U/L (38-126); Anion Gap 12.5 mEq/L (5-15); Aspartate Amino Transferase 24 U/L (17-59); Bilirubin,Total 0.6 mg/dl (0.2-1.3); Blood Urea Nitrogen 35 mg/dl (9-20); Calcium 8.6 mg/dl (8.4-10.2); Carbon Dioxide 23 mmol/L (22.0-30.0); Chloride 107 mmol/L (98-107); Estimated Glomerular Filt Rate 36 ml/min (>60); GFR (African American) 43 ML/MIN (>60); Gamma Glutamyl Transpeptidase 15 U/L (15-73); Globulin 1.9 g/dL (1.3-3.2); Glucose 125 mg/dl (74-100); Magnesium 1.5 mg/dl (1.6-2.3); Potassium 4.5 mmoL/L (3.5-5.1); Sodium 138 mmol/L (136-145); Total Protein,Serum 6.2 g/dl (6.3-8.2)
== END ==
PROVIDERS: Visit Provider Transplant Surgery
DX: Z94.4 Liver transplant status (principal)
CPT/HCPCS: 36415; 80053; 82977; 83735; 85014; 85018; 85048; 85049; 87522

== ENCOUNTER → 2021-08-24 18:46 | Outpatient (CLI) | payer MEDICARE, MEDICAID, SELFPAY ==
[2021-08-24 13:40] LABS: Amphetamine/Metha Screen,Urine Negative ng/ml (<1000)
[2021-08-24 13:40] LABS: Chloride 111 mmol/L (98-107); Potassium 4.7 mmoL/L (3.5-5.1); Sodium 139 mmol/L (136-145)
[2021-08-24 13:41] LABS: Barbiturates Screen,Urine Negative ng/ml (<200); Benzodiazepines Screen,Urine Negative ng/ml (<200)
[2021-08-24 13:43] LABS: Alanine Aminotransferase 15 U/L (12-78); Albumin Level 4.2 g/dl (3.5-5.0); Albumin/Globulin Ratio 1.8 (1.1-1.8); Alkaline Phosphatase 141 U/L (38-126); Anion Gap 15.7 mEq/L (5-15); Aspartate Amino Transferase 29 U/L (17-59); Bilirubin,Total 0.9 mg/dl (0.2-1.3); Blood Urea Nitrogen 57 mg/dl (9-20); Carbon Dioxide 17 mmol/L (22.0-30.0); Estimated Glomerular Filt Rate 20 ml/min (>60); GFR (African American) 24 ML/MIN (>60); Globulin 2.3 g/dL (1.3-3.2); Total Protein,Serum 6.5 g/dl (6.3-8.2)
[2021-08-24 13:44] LABS: Calcium 9.4 mg/dl (8.4-10.2); Glucose 111 mg/dl (74-100)
[2021-08-24 13:45] LABS: Cocaine Screen,Urine Negative ng/ml (<300); Methadone Screen,Urine Negative ng/ml (<300)
[2021-08-24 13:46] LABS: Cannabinoid Screen,Urine Negative ng/ml (<50)
[2021-08-24 13:47] LABS: Opiate Screen,Urine Negative ng/ml (<300)
[2021-08-24 13:48] LABS: Phencyclidine Screen,Urine Negative ng/ml (<25)
== END ==
PROVIDERS: Visit Provider Emergency Medicine
DX: G89.29 Other chronic pain (principal); I73.9 Peripheral vascular disease, unspecified; Z94.4 Liver transplant status
CPT/HCPCS: 80053; 80305

== ENCOUNTER → 2021-08-30 09:54 | Outpatient (CLI) | payer MEDICARE, MEDICAID, SELFPAY ==
[2021-08-30 10:51] LABS: Anion Gap 17.9 mEq/L (5-15); Blood Urea Nitrogen 54 mg/dl (9-20); Calcium 9.2 mg/dl (8.4-10.2); Carbon Dioxide 20 mmol/L (22.0-30.0); Chloride 107 mmol/L (98-107); Estimated Glomerular Filt Rate 21 ml/min (>60); GFR (African American) 25 ML/MIN (>60); Glucose 101 mg/dl (74-100); Potassium 4.9 mmoL/L (3.5-5.1); Sodium 140 mmol/L (136-145)
== END ==
PROVIDERS: Visit Provider Emergency Medicine
DX: Z00.00 Encounter for general adult medical examination without abnormal findings (principal)
CPT/HCPCS: 36415; 80048

== ENCOUNTER → 2021-09-21 10:23 | Outpatient (CLI) | payer MEDICARE, MEDICAID, SELFPAY ==
[2021-09-21 11:24] LABS: Basophils # 0.1 K/mm3 (0-0.2); Basophils % 0.8 % (0.1-2.0); Eosinophils # 0.3 K/mm3 (0.0-0.4); Eosinophils % 3.8 % (0.1-12.0); Hematocrit 30.6 % (42.0-52.0); Hemoglobin 10.3 g/dL (14.1-18.0); Lymphocytes % 15.4 % (10-50); Mean Corpuscular HGB Conc 33.7 g/dL (31.8-35.4); Mean Platelet Volume 9.6 fl (7.4-10.4); Monocytes # 0.4 K/mm3 (0.1-1.0); Monocytes % 5.7 % (1.7-9.3); Neutrophils # 4.9 K/mm3 (1.8-7.8); Neutrophils % 74.4 % (37.0-80.0); Platelet Count 159 K/mm3 (142-424); Red Blood Count 3.32 M/mm3 (4.60-6.20); Red Cell Distribution Width 13.7 % (11.5-17.5); White Blood Count 6.5 K/mm3 (4.8-10.8)
[2021-09-21 11:58] LABS: Alkaline Phosphatase 150 U/L (38-126); Bilirubin,Total 0.7 mg/dl (0.2-1.3); Carbon Dioxide 17 mmol/L (22.0-30.0)
[2021-09-21 11:59] LABS: Albumin Level 3.9 g/dl (3.5-5.0); Albumin/Globulin Ratio 1.8 (1.1-1.8); Calcium 9.2 mg/dl (8.4-10.2); Globulin 2.2 g/dL (1.3-3.2); Glucose 97 mg/dl (74-100); Magnesium 1.8 mg/dl (1.6-2.3); Total Protein,Serum 6.1 g/dl (6.3-8.2)
[2021-09-21 12:02] LABS: Anion Gap 14.4 mEq/L (5-15); Blood Urea Nitrogen 38 mg/dl (9-20); Chloride 113 mmol/L (98-107); Sodium 138 mmol/L (136-145)
[2021-09-21 12:03] LABS: Alanine Aminotransferase 17 U/L (12-78); Aspartate Amino Transferase 24 U/L (17-59); Estimated Glomerular Filt Rate 25 ml/min (>60); GFR (African American) 30 ML/MIN (>60)
[2021-09-21 12:37] LABS: Potassium 6.4 mmoL/L (3.5-5.1)
[2021-09-21 12:47] LABS: Gamma Glutamyl Transpeptidase 17 U/L (15-73)
== END ==
PROVIDERS: PCP Emergency Medicine; Visit Provider Transplant Surgery
DX: Z94.4 Liver transplant status (principal)
CPT/HCPCS: 36415; 80053; 82977; 83735; 85025; 87522

== ENCOUNTER 2021-09-21 13:12 | Emergency (ER) | payer MEDICARE, MEDICAID, SELFPAY ==
[2021-09-21 13:13] VITALS: BP 188/92; PULSE 58; RESP 16; TEMP 36.3; O2SAT 97; BMI 27.3
--- NOTE | 2021-09-21 13:19 | HMH.EDGENADL ---
ED Disposition Clinical Impression: Hyperkalemia Disposition: Home, Self-Care Condition on Discharge: Good Instructions: DI for Hyperkalemia Additional Instructions: Avoid high potassium foods as listed in hyperkalemia instruction sheet. See Dr. Al in the office on Sunday to have your potassium level rechecked. Referrals: Ced Al MD [Primary Care Provider] - - Critical Care Critical Care Time: No Attestation: On 09/21/21, the high probability of a clinically significant, sudden or life threatening deterioration of the following system(s) required my full and direct attention, intervention and personal management. The time I documented below is in addition to time spent performing reported procedures but includes the following listed in this critical care notation. Medical Decision Making - Blaze Inquiry Pt receiving controlled substance: No Vital Signs: 09/21/21 13:13 09/21/21 13:46 Temperature 97.4 F L Temperature Source Oral Pulse Rate 55 L Pulse Rate [Radial] 58 L Respiratory Rate 16 18 Blood Pressure 160/84 H Blood Pressure [Right Arm] 188/92 H Blood Pressure Mean [Right Arm] 124 Blood Pressure Position [Right Arm] Sitting 02 Sat by Pulse Oximetry 97 99 Oxygen Delivery Method Room Air - Lab Data Lab Results 09/21/21 13:28: Sodium 139, Potassium 5.9 H, Chloride 113 H, Carbon Dioxide 18 L, Anion Gap 13.9, BUN 36 H, Creatinine 2.50 H, Estimated Creat Clear 34, Estimated GFR 26 L, Est GFR ( Amer) 31 L, Glucose 118 H D, Calcium 9.2 Result diagrams: 09/21/21 13:28 Orders (Tests/Meds): ED MEDICATIONS Discontinued Medications Generic Name Dose Route Start Last Admin Trade Name Roberto Carlos PRN Reason Stop Dose Admin Dextrose 50 ml 09/21/21 13:53 09/21/21 14:14 Dextrose 50% 50ml Syringe (Crash Cart) IVP 09/21/21 13:54 50 ml ONCE ONE Administration Insulin Human Regular 5 unit 09/21/21 13:53 09/21/21 14:14 Insulin Human Regular 100 Units/Ml 10ml Vial IVP 09/21/21 13:54 5 unit ONCE ONE Administration Sodium Chloride 1,000 ml 09/21/21 13:59 09/21/21 14:15 Sodium Chloride 0.9% 1000ml Bag IV 09/21/21 14:00 1,000 ml BOLUS ONE Administration Sodium Polystyrene Sulfonate 15 gm 09/21/21 13:57 09/21/21 14:14 Sodium Poly Sulfon 15gm/60ml Oral.Susp PO 09/21/21 13:58 15 gm ONCE ONE Administration - ECG Data Tracing #1 EKG interpreted by Antelmo Rivera MD: Rhythm: sinus bradycardia Rate: 53 [place]: normal Ectopy: none Conduction: normal ST Segment Changes: none T Wave Changes: none, no T wave changes to suggest hyperkalemia Q Waves: none No evidence of acute ischemia or injury Baseline wander present. - Physician Consults Physician Consulted: Mikaela Time: 14:28 Reason -: Pt condition Comment/Response: Follow-up in his office on Sunday for recheck of potassium level. General Adult HPI - General Stated complaint: abnormal labs Time Seen by Provider: 09/21/21 13:20 - History of Present Illness HPI narrative: States he had routine blood work drawn today, ordered by his doctors in [place]. He received a call telling him to get to the emergency department because of abnormal lab results. Potassium is elevated. He states he feels great, he is asymptomatic. States that he had a liver transplant 2 years ago for alcoholic cirrhosis. He is not on potassium supplements at home. - Related Data Home Medications Medication Instructions Recorded Confirmed acyclovir 400 mg tablet 400 mg PO BID 01/10/21 08/24/21 aspirin 81 mg tablet,delayed 81 mg PO DAILY 01/10/21 08/24/21 release cyclosporine 100 mg/mL oral 100 mg PO Q12H 01/10/21 08/24/21 solution ledipasvir 90 mg-sofosbuvir 400 mg 1 tab PO DAILY 01/10/21 08/24/21 tablet sodium zirconium cyclosilicate 5 5 g PO DAILY 01/10/21 08/24/21 gram oral powder packet tamsulosin 0.4 mg capsule 0.4 mg PO HS 01/10/21 08/24/21 thiamine HCl (vitamin B1
--- NOTE | 2021-09-21 13:20 | ECG_ITS ---
APPROVED REPORT Exam: Resting ECG HR:53 bpm ECG Measurements Heart Rate 53 AXES LA 170 P 69 QRSd 89 QRS 51 QT 415 T 75 QTc 398 Conclusion SINUS BRADYCARDIA BORDERLINE ECG UNCONFIRMED REPORT Electronically signed by : Octaviano Tapia MD 09/23/2021 17:52:11
--- NOTE | 2021-09-21 13:27 | PC.NURSE ---
JOE MORELOS at speaking to patient
[2021-09-21 13:38] LABS: Chloride 113 mmol/L (98-107); Sodium 139 mmol/L (136-145)
[2021-09-21 13:39] LABS: Potassium 5.9 mmoL/L (3.5-5.1)
[2021-09-21 13:41] LABS: Blood Urea Nitrogen 36 mg/dl (9-20); Creatinine Clearance Estimated 34 mL/min (50-200); Estimated Glomerular Filt Rate 26 ml/min (>60); GFR (African American) 31 ML/MIN (>60)
[2021-09-21 13:42] LABS: Anion Gap 13.9 mEq/L (5-15); Calcium 9.2 mg/dl (8.4-10.2); Carbon Dioxide 18 mmol/L (22.0-30.0); Glucose 118 mg/dl (74-100)
[2021-09-21 13:46] VITALS: BP 160/84; PULSE 55; RESP 18; O2SAT 99
--- NOTE | 2021-09-21 13:54 | PC.NURSE ---
ER MD at speaking with patient regarding update on POC
--- NOTE | 2021-09-21 13:59 | PC.NURSE ---
Paged Dr. Al
[2021-09-21 14:00] VITALS: BP 159/83; PULSE 52; O2SAT 99
--- NOTE | 2021-09-21 14:00 | PC.NURSE ---
PT DENIES ANY C/O AT PRESENT
--- NOTE | 2021-09-21 14:27 | PC.NURSE ---
Dr. Rivera speaking with Dr. Al
[2021-09-21 14:30] VITALS: BP 162/84; PULSE 53; O2SAT 100
[2021-09-21 15:00] VITALS: BP 168/84; PULSE 55; RESP 19; O2SAT 100
--- NOTE | 2021-09-21 15:05 | PC.NURSE ---
ER MD at speaking with patient regarding update on POC
[2021-09-21 15:41] VITALS: BP 145/74; PULSE 60; RESP 16; TEMP 36.6; O2SAT 97
== END 2021-09-21 15:45 | disposition home or self-care (01) ==
PROVIDERS: Emergency Provider Emergency Medicine; PCP Emergency Medicine
DX: E87.5 Hyperkalemia (principal); Z94.4 Liver transplant status; Z87.891 Personal history of nicotine dependence
CPT/HCPCS: 36415; 80048; 80053; 82977; 83735; 85025; 87522; 93005; 96374; 99284

== ENCOUNTER → 2021-09-23 14:37 | Outpatient (CLI) | payer MEDICARE, MEDICAID, SELFPAY ==
[2021-09-23 13:35] LABS: Alanine Aminotransferase 16 U/L (12-78); Albumin Level 3.5 g/dl (3.5-5.0); Albumin/Globulin Ratio 1.7 (1.1-1.8); Alkaline Phosphatase 134 U/L (38-126); Anion Gap 10.8 mEq/L (5-15); Aspartate Amino Transferase 22 U/L (17-59); Bilirubin,Total 0.5 mg/dl (0.2-1.3); Blood Urea Nitrogen 28 mg/dl (9-20); Calcium 8.9 mg/dl (8.4-10.2); Carbon Dioxide 20 mmol/L (22.0-30.0); Chloride 113 mmol/L (98-107); Estimated Glomerular Filt Rate 30 ml/min (>60); GFR (African American) 36 ML/MIN (>60); Globulin 2.1 g/dL (1.3-3.2); Glucose 128 mg/dl (74-100); Potassium 5.8 mmoL/L (3.5-5.1); Sodium 138 mmol/L (136-145); Total Protein,Serum 5.6 g/dl (6.3-8.2)
== END ==
PROVIDERS: PCP Emergency Medicine; Visit Provider Emergency Medicine
DX: E87.5 Hyperkalemia (principal)
CPT/HCPCS: 80053

== ENCOUNTER → 2021-10-05 09:41 | Outpatient (CLI) | payer MEDICARE, MEDICAID, SELFPAY ==
[2021-10-05 10:19] LABS: Hematocrit 30.5 % (42.0-52.0); Hemoglobin 10.4 g/dL (14.1-18.0); Mean Corpuscular HGB Conc 34.2 g/dL (31.8-35.4); Mean Corpuscular Hemoglobin 30.6 pg (27.0-31.2); Mean Corpuscular Volume 89.5 fl (80-94); Platelet Count 205 K/mm3 (142-424); Red Blood Count 3.41 M/mm3 (4.60-6.20); Red Cell Distribution Width 13.4 % (11.5-17.5); White Blood Count 5.5 K/mm3 (4.8-10.8)
[2021-10-05 10:37] LABS: Chloride 109 mmol/L (98-107); Sodium 138 mmol/L (136-145)
[2021-10-05 10:40] LABS: Alanine Aminotransferase 17 U/L (12-78); Albumin Level 4.2 g/dl (3.5-5.0); Albumin/Globulin Ratio 1.9 (1.1-1.8); Alkaline Phosphatase 147 U/L (38-126); Anion Gap 12.5 mEq/L (5-15); Aspartate Amino Transferase 26 U/L (17-59); Bilirubin,Total 0.8 mg/dl (0.2-1.3); Blood Urea Nitrogen 38 mg/dl (9-20); Calcium 9.6 mg/dl (8.4-10.2); Carbon Dioxide 23 mmol/L (22.0-30.0); Estimated Glomerular Filt Rate 24 ml/min (>60); GFR (African American) 29 ML/MIN (>60); Globulin 2.2 g/dL (1.3-3.2); Glucose 100 mg/dl (74-100); Magnesium 2.3 mg/dl (1.6-2.3); Total Protein,Serum 6.4 g/dl (6.3-8.2)
[2021-10-05 11:38] LABS: Gamma Glutamyl Transpeptidase 18 U/L (15-73)
[2021-10-05 11:40] LABS: Potassium 6.5 mmoL/L (3.5-5.1)
== END ==
PROVIDERS: PCP Emergency Medicine; Visit Provider Transplant Surgery
DX: Z94.4 Liver transplant status (principal)
CPT/HCPCS: 36415; 80053; 82977; 83735; 85014; 85018; 85048; 85049; 87522

== ENCOUNTER 2021-10-05 12:10 | Emergency (ER) | payer MEDICARE, MEDICAID, SELFPAY ==
[2021-10-05 12:12] VITALS: BP 189/91; PULSE 56; RESP 16; O2SAT 100; BMI 25.1
[2021-10-05 12:18] VITALS: BP 189/91; PULSE 48; RESP 16; O2SAT 100
--- NOTE | 2021-10-05 12:30 | ECG_ITS ---
APPROVED REPORT Exam: Resting ECG HR:50 bpm ECG Measurements Heart Rate 50 AXES [place] 182 P 47 QRSd 85 QRS 23 QT 434 T 50 QTc 406 Conclusion SINUS BRADYCARDIA BORDERLINE ECG UNCONFIRMED REPORT Electronically signed by : Octaviano Tapia MD 10/05/2021 17:26:46
[2021-10-05 12:32] VITALS: BP 168/84; PULSE 47; RESP 17; O2SAT 100
--- NOTE | 2021-10-05 12:33 | PC.NURSE ---
1230 DR. BAIRD AT BEDSIDE
[2021-10-05 12:35] LABS: Chloride 110 mmol/L (98-107); Potassium 5.5 mmoL/L (3.5-5.1); Sodium 139 mmol/L (136-145)
[2021-10-05 12:37] LABS: Blood Urea Nitrogen 38 mg/dl (9-20); Creatinine Clearance Estimated 30 mL/min (50-200); Estimated Glomerular Filt Rate 23 ml/min (>60); GFR (African American) 28 ML/MIN (>60)
[2021-10-05 12:38] VITALS: BP 168/80; PULSE 47; RESP 15; O2SAT 100
[2021-10-05 12:38] LABS: Alanine Aminotransferase 19 U/L (12-78); Albumin Level 4.3 g/dl (3.5-5.0); Albumin/Globulin Ratio 1.8 (1.1-1.8); Alkaline Phosphatase 141 U/L (38-126); Anion Gap 10.5 mEq/L (5-15); Aspartate Amino Transferase 28 U/L (17-59); Bilirubin,Total 0.7 mg/dl (0.2-1.3); Carbon Dioxide 24 mmol/L (22.0-30.0); Globulin 2.4 g/dL (1.3-3.2); Total Protein,Serum 6.7 g/dl (6.3-8.2)
--- NOTE | 2021-10-05 12:38 | PC.NURSE ---
RESPIRATORY MADE AWARE OF VBG ORDERED
[2021-10-05 12:43] LABS: VBG Base Excess -5.4 mmol/L (-2.4-2.3); VBG HCO3 21.7 mmol/L (23-30); VBG PCO2 49.8 mmol/L (35-51); VBG PH 7.26 mmol/L (7.31-7.41); VBG PO2 65.3 mmol/L (28-40); VBG Total CO2 23.3 mmol/L (23-27)
--- NOTE | 2021-10-05 12:45 | HMH.EDGENADL ---
ED Disposition Clinical Impression: Hyperkalemia, Renal insufficiency Disposition: Home, Self-Care Condition on Discharge: Good Additional Instructions: You have been evaluated for abnormal lab work, elevated potassium. Your potassium today is 5.5, this is nearly normal. It is very important that you take all medications as prescribed. Please start taking 10 mg Lokelma daily, rather than 5 mg. Follow-up with your primary care doctor as well as your liver transplant team to discuss other medications that can cause elevated potassium or injury to the kidneys. Specifically, cyclosporine, Lasix. Return to the emergency department at once for any new or worsening symptoms, muscle aches, palpitations, other concerns. Referrals: Ced Al MD [Primary Care Provider] - Time of Disposition: 13:00 - Critical Care Critical Care Time: No Attestation: On 10/05/21, the high probability of a clinically significant, sudden or life threatening deterioration of the following system(s) required my full and direct attention, intervention and personal management. The time I documented below is in addition to time spent performing reported procedures but includes the following listed in this critical care notation. Medical Decision Making - Medical Records Medical records reviewed: Yes: I reviewed the patient's medical records. - Blaze Inquiry Pt receiving controlled substance: No Vital Signs: 10/05/21 12:12 10/05/21 12:18 10/05/21 12:32 Pulse Rate 48 L 47 L Pulse Rate [Brachial] 56 L Respiratory Rate 16 16 17 Blood Pressure 189/91 H 168/84 H Blood Pressure [Right Arm] 189/91 H Blood Pressure Mean 105 98 Blood Pressure Mean [Right Arm] 123 Blood Pressure Source [Right Arm] Automatic Cuff Blood Pressure Position [Right Arm] Sitting 02 Sat by Pulse Oximetry 100 100 100 Oxygen Delivery Method Room Air Room Air Room Air 10/05/21 12:38 Pulse Rate 47 L Pulse Rate [Brachial] Respiratory Rate 15 Blood Pressure 168/80 H Blood Pressure [Right Arm] Blood Pressure Mean 95 Blood Pressure Mean [Right Arm] Blood Pressure Source [Right Arm] Blood Pressure Position [Right Arm] 02 Sat by Pulse Oximetry 100 Oxygen Delivery Method Room Air - Lab Data Lab Results 10/05/21 12:20: Sodium 139, Potassium 5.5 H, Chloride 110 H, Carbon Dioxide 24, Anion Gap 10.5, BUN 38 H, Creatinine 2.80 H, Estimated Creat Clear 30, Estimated GFR 23 L, Est GFR ( Amer) 28 L, Total Bilirubin 0.7, AST 28, ALT 19, Alkaline Phosphatase 141 H, Total Protein 6.7, Albumin 4.3, Globulin 2.4, Albumin/Globulin Ratio 1.8 Result diagrams: 10/05/21 12:20 Orders (Tests/Meds): ORDERS Category Date Time Status Comprehensive Metabolic Panel Stat Lab 10/05/21 12:20 Results VBG [Venous Blood Gas] Stat RT 10/05/21 12:17 Ordered Medical Decision Narrative: In summary this is a 65-year-old male with history of liver transplant presenting to the emergency department with abnormal lab, hyperkalemia. Patient clinically stable on arrival. Vital signs within normal limits. Will obtain CMP, EKG, VBG. EKG shows no peaked T waves. No wide-complex. Laboratory results today are quite reassuring. Patient's potassium is 5.5, down from most recent laboratory result of 6.9. He has altered renal function, creatinine today is 2.8. Baseline is widely between 2.5 and 3.5. No other electrolyte derangements. No acidosis on VBG. Hyperkalemia is possibly due to renal dysfunction, cyclosporine and Lasix use. Patient is on 5 mg Lokelma daily. Recommended he increase it to 10 mg. Should have medication reconciliation with his PCP and liver transplant team. Expressed understanding. Stable for discharge. General Adult HPI - General Chief complaint: Recheck/Abnormal Lab/Rx Stated complaint: abnormal lab Time Seen by Provider: 10/05/21 12:25 Mode of Arrival: Ambulatory Limitations: No Limitations Description of Symptoms (Recalled fr
[2021-10-05 12:48] LABS: Calcium 9.4 mg/dl (8.4-10.2); Glucose 104 mg/dl (74-100)
[2021-10-05 13:01] VITALS: BP 161/81; PULSE 47; RESP 16; O2SAT 100
--- NOTE | 2021-10-05 13:02 | PC.NURSE ---
1300 PT RESTING IN BED, DENIES NEEDS AT THIS TIME
[2021-10-05 13:45] VITALS: BP 162/82; PULSE 50; RESP 18; TEMP 36.7
== END 2021-10-05 13:45 | disposition home or self-care (01) ==
PROVIDERS: Emergency Provider Emergency Medicine; PCP Emergency Medicine
DX: E87.5 Hyperkalemia (principal); N28.9 Disorder of kidney and ureter, unspecified; Z79.82 Long term (current) use of aspirin; Z79.899 Other long term (current) drug therapy; F41.9 Anxiety disorder, unspecified; I42.9 Cardiomyopathy, unspecified; I11.0 Hypertensive heart disease with heart failure; I25.10 Atherosclerotic heart disease of native coronary artery without angina pectoris; D64.9 Anemia, unspecified; K76.9 Liver disease, unspecified
CPT/HCPCS: 36415; 80053; 82803; 82977; 83735; 85014; 85018; 85048; 85049; 87522; 93005; 99283

== ENCOUNTER → 2021-10-06 09:30 | Outpatient (CLI) | payer MEDICARE, MEDICAID, SELFPAY | PROVIDERS: PCP Emergency Medicine; Visit Provider Transplant Surgery | DX: Z79.899 Other long term (current) drug therapy (principal) ==

== ENCOUNTER 2021-10-06 09:49 | Emergency (ER) | payer MEDICARE, MEDICAID, SELFPAY ==
[2021-10-06] VITALS (10 sets, daily range): BP systolic 162–178; BP diastolic 85–92; PULSE 46–59; RESP 15–18; TEMP 37.1; O2SAT 98–100; BMI 25.1
--- NOTE | 2021-10-06 10:08 | PC.NURSE ---
IV established, blood sent to the lab at this time
--- NOTE | 2021-10-06 10:09 | HMH.EDGENADL ---
ED Disposition Clinical Impression: Hyperkalemia Chronic kidney disease Qualifiers: Chronic kidney disease stage: unspecified stage Qualified Code(s): N18.9 - Chronic kidney disease, unspecified Disposition: Home, Self-Care Condition on Discharge: Good Additional Instructions: A prescription for Veltassa has been sent to [place] pharmacy for you, please pick it up and begin taking. Return to laboratory tomorrow for repeat lab draw. Take cyclosporine AFTER your blood is drawn for laboratory studies. Your transplant team will call you today to arrange follow-up. Referrals: Ced Al MD [Primary Care Provider] - - Critical Care Critical Care Time: No Attestation: On 10/06/21, the high probability of a clinically significant, sudden or life threatening deterioration of the following system(s) required my full and direct attention, intervention and personal management. The time I documented below is in addition to time spent performing reported procedures but includes the following listed in this critical care notation. Medical Decision Making - Medical Records Medical records reviewed: Yes: I reviewed the patient's medical records. MR Comment: Reviewed emergency department notes from 09/21/2021 and 10/05/2021. Reviewed labs since 09/21/2021. - Blaze Inquiry Pt receiving controlled substance: No Vital Signs: 10/06/21 09:50 10/06/21 10:00 10/06/21 10:15 Temperature 98.7 F Temperature Source Oral Pulse Rate 46 L 47 L Pulse Rate [Right Radial] 59 L Respiratory Rate 16 16 18 Blood Pressure 171/88 H 176/92 H Blood Pressure [Left Arm] 171/88 H Blood Pressure Mean 128 137 Blood Pressure Mean [Left Arm] 115 Blood Pressure Source [Left Arm] Automatic Cuff Blood Pressure Position [Left Arm] Sitting 02 Sat by Pulse Oximetry 99 99 99 Oxygen Delivery Method Room Air Room Air Room Air 10/06/21 10:31 10/06/21 10:46 10/06/21 11:00 Temperature Temperature Source Pulse Rate 46 L 47 L 46 L Pulse Rate [Right Radial] Respiratory Rate 15 15 17 Blood Pressure 167/85 H 162/89 H 167/86 H Blood Pressure [Left Arm] Blood Pressure Mean 135 130 127 Blood Pressure Mean [Left Arm] Blood Pressure Source [Left Arm] Blood Pressure Position [Left Arm] 02 Sat by Pulse Oximetry 98 99 99 Oxygen Delivery Method Room Air Room Air Room Air - Lab Data Lab Results 10/06/21 10:06: WBC 5.0, RBC 3.27 L, Hgb 9.9 L, Hct 29.0 L, MCV 88.6, MCH 30.4, MCHC 34.3, RDW 13.4, Plt Count 193, MPV 8.5, Neut % (Auto) 73.8, Lymph % (Auto) 14.3, [place] % (Auto) 6.2, Eos % (Auto) 4.9, Baso % (Auto) 0.8, Neut # (Auto) 3.7, Lymph # (Auto) 0.7, [place] # (Auto) 0.3, Eos # (Auto) 0.3, Baso # (Auto) 0.0 10/06/21 10:06: Sodium 138, Potassium 5.4 H, Chloride 110 H, Carbon Dioxide 23, Anion Gap 10.4, BUN 31 H, Creatinine 2.30 H, Estimated Creat Clear 36, Estimated GFR 29 L, Est GFR ( Amer) 35 L D, Glucose 110 H, Calcium 9.2, Total Bilirubin 0.9, AST 35, ALT 21, Alkaline Phosphatase 146 H, Total Protein 6.6, Albumin 4.2, Globulin 2.4, Albumin/Globulin Ratio 1.8 Result diagrams: 10/06/21 10:06 10/06/21 10:06 Medical Decision Narrative: I spoke with Sal at the patient's transplant team office. She states that the patient was on Lokelma at one time, but they normally do not keep him on it continuously. She will speak with their provider and call him in a prescription and arrange follow-up. General Adult HPI - General Chief complaint: Recheck/Abnormal Lab/Rx Stated complaint: abnormal labs Time Seen by Provider: 10/06/21 10:09 Mode of Arrival: Ambulatory Source of Information: Medical Record Limitations: No Limitations Description of Symptoms (Recalled from ER Triage Doc. by RN): Pt to ED stating that he received a call about abnormal labs indicating an elevated potassium level. Advises that he was evaluated in the ED yesterday r/t a call about the same thing. Pt states I feel great. I just got called about
[2021-10-06 10:21] LABS: Basophils % 0.8 % (0.1-2.0); Eosinophils # 0.3 K/mm3 (0.0-0.4); Eosinophils % 4.9 % (0.1-12.0); Hemoglobin 9.9 g/dL (14.1-18.0); Lymphocytes # 0.7 K/mm3 (0.7-4.5); Lymphocytes % 14.3 % (10-50); Mean Corpuscular HGB Conc 34.3 g/dL (31.8-35.4); Mean Corpuscular Hemoglobin 30.4 pg (27.0-31.2); Mean Corpuscular Volume 88.6 fl (80-94); Mean Platelet Volume 8.5 fl (7.4-10.4); Monocytes # 0.3 K/mm3 (0.1-1.0); Monocytes % 6.2 % (1.7-9.3); Neutrophils # 3.7 K/mm3 (1.8-7.8); Neutrophils % 73.8 % (37.0-80.0); Platelet Count 193 K/mm3 (142-424); Red Blood Count 3.27 M/mm3 (4.60-6.20); Red Cell Distribution Width 13.4 % (11.5-17.5)
--- NOTE | 2021-10-06 10:22 | PC.NURSE ---
pt states he was on his way to [facility] for routine outpatient labs when he received the call about his potassium. pt gave this RN an order form for his labs. called the lab to inquire about faxing order form to run labs from blood obtained in the ED. [facility] states they are able to use existing blood and use the order form as an outpatient basis. pt notified and order form faxed to the lab.
[2021-10-06 10:25] LABS: Chloride 110 mmol/L (98-107); Potassium 5.4 mmoL/L (3.5-5.1); Sodium 138 mmol/L (136-145)
[2021-10-06 10:28] LABS: Alanine Aminotransferase 21 U/L (12-78); Albumin Level 4.2 g/dl (3.5-5.0); Albumin/Globulin Ratio 1.8 (1.1-1.8); Alkaline Phosphatase 146 U/L (38-126); Anion Gap 10.4 mEq/L (5-15); Aspartate Amino Transferase 35 U/L (17-59); Bilirubin,Total 0.9 mg/dl (0.2-1.3); Blood Urea Nitrogen 31 mg/dl (9-20); Carbon Dioxide 23 mmol/L (22.0-30.0); Creatinine Clearance Estimated 36 mL/min (50-200); Estimated Glomerular Filt Rate 29 ml/min (>60); GFR (African American) 35 ML/MIN (>60); Globulin 2.4 g/dL (1.3-3.2); Total Protein,Serum 6.6 g/dl (6.3-8.2)
[2021-10-06 10:29] LABS: Calcium 9.2 mg/dl (8.4-10.2); Glucose 110 mg/dl (74-100)
--- NOTE | 2021-10-06 10:35 | PC.NURSE ---
at the bedside speaking to pt
--- NOTE | 2021-10-06 10:53 | PC.NURSE ---
calling [facility] for med list per md request
--- NOTE | 2021-10-06 10:58 | PC.NURSE ---
speaking to RN at the liver transplant team at
--- NOTE | 2021-10-06 11:06 | PC.NURSE ---
ER MD at speaking with patient regarding update on POC
--- NOTE | 2021-10-06 11:17 | PC.NURSE ---
RN at the clinic states to MD she will have his liver transplant doctor call in his medication regarding his potassium. MD gave pt instructions on new dosing.
--- NOTE | 2021-10-06 11:32 | PC.NURSE ---
spoke with [facility] transplant center staff at this time, states she was unable to make contact with pt on his phone. Spoke with pt to get correct phone number. Pt is unaware of new phone number states he can get it when he gets home and call transplant center to give them new contact info. Transplant center number to call [phone] transplant center staff states at d/c from ER pt is to start new prescription of Veltassa, prescription called into [facility] pharmacy. Pt needs to get his labs drawn tomorrow morning (sunday) at his normal lab. Pt needs to wait to take his cyclosporine until after his labs are drawn tomorrow morning. Staff states they will discuss follow up with pt when they speak with him on the phone, states they will have him follow up with them and his chief data officer. All above information relayed to JOE MORELOS
== END 2021-10-06 11:51 | disposition home or self-care (01) ==
PROVIDERS: Emergency Provider Emergency Medicine; PCP Emergency Medicine
DX: E87.5 Hyperkalemia (principal); N18.9 Chronic kidney disease, unspecified; Z79.82 Long term (current) use of aspirin; Z79.899 Other long term (current) drug therapy; I42.9 Cardiomyopathy, unspecified; I11.0 Hypertensive heart disease with heart failure; I50.9 Heart failure, unspecified; I25.10 Atherosclerotic heart disease of native coronary artery without angina pectoris; F41.9 Anxiety disorder, unspecified; D64.9 Anemia, unspecified; K76.9 Liver disease, unspecified
CPT/HCPCS: 80053; 85025; 99282

== ENCOUNTER → 2021-10-07 08:05 | Outpatient (CLI) | payer MEDICARE, MEDICAID, SELFPAY ==
[2021-10-07 09:13] LABS: Basophils % 0.6 % (0.1-2.0); Eosinophils # 0.3 K/mm3 (0.0-0.4); Eosinophils % 5.1 % (0.1-12.0); Hematocrit 29.6 % (42.0-52.0); Hemoglobin 10.2 g/dL (14.1-18.0); Lymphocytes # 0.9 K/mm3 (0.7-4.5); Lymphocytes % 16.3 % (10-50); Mean Corpuscular HGB Conc 34.3 g/dL (31.8-35.4); Mean Corpuscular Hemoglobin 30.3 pg (27.0-31.2); Mean Corpuscular Volume 88.4 fl (80-94); Mean Platelet Volume 8.5 fl (7.4-10.4); Monocytes # 0.3 K/mm3 (0.1-1.0); Monocytes % 6.3 % (1.7-9.3); Neutrophils # 3.8 K/mm3 (1.8-7.8); Neutrophils % 71.7 % (37.0-80.0); Platelet Count 200 K/mm3 (142-424); Red Blood Count 3.35 M/mm3 (4.60-6.20); Red Cell Distribution Width 13.5 % (11.5-17.5); White Blood Count 5.3 K/mm3 (4.8-10.8)
[2021-10-07 10:10] LABS: Chloride 106 mmol/L (98-107); Sodium 139 mmol/L (136-145)
[2021-10-07 10:11] LABS: Potassium 5.1 mmoL/L (3.5-5.1)
[2021-10-07 10:13] LABS: Alanine Aminotransferase 21 U/L (12-78); Albumin Level 4.2 g/dl (3.5-5.0); Alkaline Phosphatase 134 U/L (38-126); Anion Gap 13.1 mEq/L (5-15); Aspartate Amino Transferase 26 U/L (17-59); Bilirubin,Total 0.8 mg/dl (0.2-1.3); Blood Urea Nitrogen 31 mg/dl (9-20); Carbon Dioxide 25 mmol/L (22.0-30.0); Estimated Glomerular Filt Rate 25 ml/min (>60); GFR (African American) 30 ML/MIN (>60); Globulin 2.1 g/dL (1.3-3.2); Glucose 96 mg/dl (74-100); Total Protein,Serum 6.3 g/dl (6.3-8.2)
[2021-10-07 10:14] LABS: Magnesium 1.9 mg/dl (1.6-2.3)
[2021-10-07 10:21] LABS: Gamma Glutamyl Transpeptidase 16 U/L (15-73)
== END ==
PROVIDERS: PCP Emergency Medicine; Visit Provider Transplant Surgery
DX: Z94.4 Liver transplant status (principal); Z79.899 Other long term (current) drug therapy
CPT/HCPCS: 80053; 82977; 83735; 85025; 87522

== ENCOUNTER → 2021-10-19 09:16 | Outpatient (CLI) | payer MEDICARE, MEDICAID, SELFPAY ==
[2021-10-19 09:56] LABS: Hematocrit 29.8 % (42.0-52.0); Hemoglobin 9.8 g/dL (14.1-18.0); Mean Corpuscular HGB Conc 32.9 g/dL (31.8-35.4); Mean Corpuscular Hemoglobin 31.3 pg (27.0-31.2); Mean Corpuscular Volume 94.9 fl (80-94); Platelet Count 174 K/mm3 (142-424); Red Blood Count 3.14 M/mm3 (4.60-6.20); Red Cell Distribution Width 14.2 % (11.5-17.5); White Blood Count 4.4 K/mm3 (4.8-10.8)
[2021-10-19 10:20] LABS: Alanine Aminotransferase 14 U/L (12-78); Albumin Level 3.8 g/dl (3.5-5.0); Albumin/Globulin Ratio 1.8 (1.1-1.8); Alkaline Phosphatase 112 U/L (38-126); Anion Gap 11.5 mEq/L (5-15); Aspartate Amino Transferase 21 U/L (17-59); Bilirubin,Total 0.7 mg/dl (0.2-1.3); Blood Urea Nitrogen 30 mg/dl (9-20); Calcium 8.8 mg/dl (8.4-10.2); Carbon Dioxide 22 mmol/L (22.0-30.0); Chloride 111 mmol/L (98-107); Estimated Glomerular Filt Rate 32 ml/min (>60); GFR (African American) 38 ML/MIN (>60); Gamma Glutamyl Transpeptidase 15 U/L (15-73); Globulin 2.1 g/dL (1.3-3.2); Glucose 91 mg/dl (74-100); Magnesium 1.7 mg/dl (1.6-2.3); Potassium 5.5 mmoL/L (3.5-5.1); Sodium 139 mmol/L (136-145); Total Protein,Serum 5.9 g/dl (6.3-8.2)
== END ==
PROVIDERS: Transplant Surgery; PCP Emergency Medicine; Visit Provider Nurse Practitioner Family
DX: Z79.899 Other long term (current) drug therapy (principal); Z94.4 Liver transplant status
CPT/HCPCS: 36415; 80053; 82977; 83735; 85014; 85018; 85048; 85049; 87522

== ENCOUNTER → 2021-10-26 09:45 | Outpatient (CLI) | payer MEDICARE, MEDICAID, SELFPAY ==
[2021-10-26 10:36] LABS: Hematocrit 28.8 % (42.0-52.0); Mean Corpuscular HGB Conc 34.6 g/dL (31.8-35.4); Mean Corpuscular Hemoglobin 31.3 pg (27.0-31.2); Mean Corpuscular Volume 90.5 fl (80-94); Platelet Count 163 K/mm3 (142-424); Red Blood Count 3.18 M/mm3 (4.60-6.20); Red Cell Distribution Width 13.7 % (11.5-17.5); White Blood Count 5.8 K/mm3 (4.8-10.8)
[2021-10-26 10:53] LABS: Alanine Aminotransferase 13 U/L (12-78); Albumin Level 3.8 g/dl (3.5-5.0); Albumin/Globulin Ratio 1.7 (1.1-1.8); Alkaline Phosphatase 118 U/L (38-126); Anion Gap 14.2 mEq/L (5-15); Aspartate Amino Transferase 20 U/L (17-59); Bilirubin,Total 0.4 mg/dl (0.2-1.3); Blood Urea Nitrogen 36 mg/dl (9-20); Calcium 9.6 mg/dl (8.4-10.2); Carbon Dioxide 21 mmol/L (22.0-30.0); Chloride 113 mmol/L (98-107); Estimated Glomerular Filt Rate 32 ml/min (>60); GFR (African American) 38 ML/MIN (>60); Gamma Glutamyl Transpeptidase 15 U/L (15-73); Globulin 2.2 g/dL (1.3-3.2); Glucose 103 mg/dl (74-100); Magnesium 1.8 mg/dl (1.6-2.3); Sodium 141 mmol/L (136-145)
[2021-10-26 10:57] LABS: Potassium 7.2 mmoL/L (3.5-5.1)
--- NOTE | 2021-10-26 11:24 | ECG_ITS ---
APPROVED REPORT Exam: Resting ECG HR:52 bpm ECG Measurements Heart Rate 52 AXES [place] 168 P 66 QRSd 90 QRS 51 QT 423 T 63 QTc 402 Conclusion SINUS BRADYCARDIA BORDERLINE ECG UNCONFIRMED REPORT Electronically signed by : Octaviano Tapia MD 10/26/2021 21:01:14
== END ==
PROVIDERS: PCP Emergency Medicine; Visit Provider Transplant Surgery
DX: Z94.4 Liver transplant status (principal); B18.2 Chronic viral hepatitis C
CPT/HCPCS: 36415; 80053; 82977; 83735; 85014; 85018; 85048; 85049; 87522; 93005

== ENCOUNTER 2021-10-26 11:16 | Emergency (ER) | payer MEDICARE, MEDICAID, SELFPAY ==
[2021-10-26] VITALS (7 sets, daily range): BP systolic 161–183; BP diastolic 81–92; PULSE 48–515; RESP 13–20; TEMP 36.6–36.7; O2SAT 98–100; BMI 25.4
--- NOTE | 2021-10-26 11:28 | PC.NURSE ---
JOE MORLEOS at
[2021-10-26 11:44] LABS: Basophils % 0.5 % (0.1-2.0); Eosinophils # 0.2 K/mm3 (0.0-0.4); Eosinophils % 4.3 % (0.1-12.0); Hematocrit 29.6 % (42.0-52.0); Hemoglobin 10.2 g/dL (14.1-18.0); Lymphocytes # 0.9 K/mm3 (0.7-4.5); Lymphocytes % 17.6 % (10-50); Mean Corpuscular HGB Conc 34.6 g/dL (31.8-35.4); Mean Corpuscular Hemoglobin 31.4 pg (27.0-31.2); Mean Corpuscular Volume 90.6 fl (80-94); Mean Platelet Volume 8.7 fl (7.4-10.4); Monocytes # 0.3 K/mm3 (0.1-1.0); Monocytes % 5.1 % (1.7-9.3); Neutrophils # 3.9 K/mm3 (1.8-7.8); Neutrophils % 72.6 % (37.0-80.0); Platelet Count 169 K/mm3 (142-424); Red Blood Count 3.26 M/mm3 (4.60-6.20); Red Cell Distribution Width 13.7 % (11.5-17.5); White Blood Count 5.4 K/mm3 (4.8-10.8)
--- NOTE | 2021-10-26 11:59 | HMH.EDGENADL ---
ED Disposition Clinical Impression: Hyperkalemia Chronic kidney disease Qualifiers: Chronic kidney disease stage: stage 3 (moderate) Chronic kidney disease stage 3 subtype: stage 3b (GFR 30-44) Qualified Code(s): N18.32 - Chronic kidney disease, stage 3b Disposition: Home, Self-Care Condition on Discharge: Good Instructions: DI for Hyperkalemia Referrals: Ced Al MD [Primary Care Provider] - - Critical Care Critical Care Time: No Attestation: On 10/26/21, the high probability of a clinically significant, sudden or life threatening deterioration of the following system(s) required my full and direct attention, intervention and personal management. The time I documented below is in addition to time spent performing reported procedures but includes the following listed in this critical care notation. Medical Decision Making - Medical Records Medical records reviewed: Yes: I reviewed the patient's medical records. - Blaze Inquiry Pt receiving controlled substance: No Vital Signs: 10/26/21 11:18 10/26/21 11:42 10/26/21 12:30 Temperature 98.0 F Temperature Source Oral Pulse Rate 53 L 515 H Pulse Rate [Brachial] 60 Respiratory Rate 18 20 Blood Pressure 165/87 H Blood Pressure [Right Arm] 183/92 H Blood Pressure Mean 122 Blood Pressure Mean [Right Arm] 122 Blood Pressure Source [Right Arm] Automatic Cuff Blood Pressure Position [Right Arm] Sitting 02 Sat by Pulse Oximetry 98 98 Oxygen Delivery Method Room Air - Lab Data Lab Results 10/26/21 11:29: WBC 5.4, RBC 3.26 L, Hgb 10.2 L, Hct 29.6 L, MCV 90.6, MCH 31.4 H, MCHC 34.6, RDW 13.7, Plt Count 169, MPV 8.7, Neut % (Auto) 72.6, Lymph % (Auto) 17.6, Cloud % (Auto) 5.1, Eos % (Auto) 4.3, Baso % (Auto) 0.5, Neut # (Auto) 3.9, Lymph # (Auto) 0.9, Cloud # (Auto) 0.3, Eos # (Auto) 0.2, Baso # (Auto) 0.0 10/26/21 11:29: Sodium 139, Potassium 5.4 H D, Chloride 112 H, Carbon Dioxide 21 L, Anion Gap 11.4, BUN 37 H, Creatinine 2.10 H, Estimated Creat Clear 40, Estimated GFR 32 L, Est GFR ( Amer) 38 L, Glucose 122 H, Calcium 9.5, Total Bilirubin 0.7, AST 26 D, ALT 15, Alkaline Phosphatase 117, Total Protein 6.8, Albumin 4.3 D, Globulin 2.5, Albumin/Globulin Ratio 1.7 Result diagrams: 10/26/21 11:29 10/26/21 11:29 Orders (Tests/Meds): ED MEDICATIONS Discontinued Medications Generic Name Dose Route Start Last Admin Trade Name Roberto Carlos PRN Reason Stop Dose Admin Albuterol Sulfate 2.5 mg 10/26/21 12:20 10/26/21 12:29 Albuterol 0.083% 2.5 Mg/3 Ml Neb IH 10/26/21 12:21 2.5 mg ONCE ONE Administration Dextrose 50 ml 10/26/21 12:20 10/26/21 12:28 Dextrose 50% 50ml Syringe (Crash Cart) IVP 10/26/21 12:21 50 ml ONCE ONE Administration Insulin Human Regular 10 unit 10/26/21 12:20 10/26/21 12:28 Insulin Human Regular 100 Units/Ml 10ml Vial IVP 10/26/21 12:21 10 unit ONCE ONE Administration - ECG Data Tracing #1 I reviewed this ECG and interpreted as documented below: ECG initial impression date: 10/26/21 ECG initial impression time: 11:24 Normal Sinus Rhythm: Yes Arrhythmias present: sinus kat[place] (rate 52 bpm) - Reevaluation(s) Time: 12:55 Reevaluation #1: Patient has some very mild elevated potassium. There is no significant hemodynamic instability. No arrhythmias. Patient was treated with insulin glucose as well and has albuterol. Patient will continue outpatient medications for hyperkalemia. Patient to follow-up with primary physician. Given strict return precautions. Verbalized understanding. Medical Decision Narrative: 65-year-old male presented to the emergency department for elevated potassium. Patient frequently presents for this issue. Has a history of chronic kidney disease as well as liver replacement. Asymptomatic at this time. Work-up initiated. General Adult HPI - General Chief complaint: Recheck/Abnormal Lab/Rx Stated complaint: High Potassium Level
[2021-10-26 12:01] LABS: Chloride 112 mmol/L (98-107); Potassium 5.4 mmoL/L (3.5-5.1); Sodium 139 mmol/L (136-145)
--- NOTE | 2021-10-26 12:01 | PC.NURSE ---
Rounded on patient; he reports no needs at this time. he is aware that we are still waiting on lab results at this time.
[2021-10-26 12:04] LABS: Alanine Aminotransferase 15 U/L (12-78); Albumin Level 4.3 g/dl (3.5-5.0); Albumin/Globulin Ratio 1.7 (1.1-1.8); Alkaline Phosphatase 117 U/L (38-126); Anion Gap 11.4 mEq/L (5-15); Aspartate Amino Transferase 26 U/L (17-59); Bilirubin,Total 0.7 mg/dl (0.2-1.3); Blood Urea Nitrogen 37 mg/dl (9-20); Calcium 9.5 mg/dl (8.4-10.2); Carbon Dioxide 21 mmol/L (22.0-30.0); Creatinine Clearance Estimated 40 mL/min (50-200); Estimated Glomerular Filt Rate 32 ml/min (>60); GFR (African American) 38 ML/MIN (>60); Globulin 2.5 g/dL (1.3-3.2); Glucose 122 mg/dl (74-100); Total Protein,Serum 6.8 g/dl (6.3-8.2)
--- NOTE | 2021-10-26 12:22 | PC.NURSE ---
notified RT of neb treatment,spoke with isis
--- NOTE | 2021-10-26 12:27 | PC.NURSE ---
Respiratory at bedside for Neb treatment
--- NOTE | 2021-10-26 12:28 | PC.NURSE ---
RT at BS
== END 2021-10-26 13:13 | disposition home or self-care (01) ==
PROVIDERS: Emergency Provider Emergency Medicine; PCP Emergency Medicine
DX: E87.5 Hyperkalemia (principal); N18.32 Chronic kidney disease, stage 3b; Z79.82 Long term (current) use of aspirin; Z79.899 Other long term (current) drug therapy; F41.9 Anxiety disorder, unspecified; I42.9 Cardiomyopathy, unspecified; I25.10 Atherosclerotic heart disease of native coronary artery without angina pectoris; I12.9 Hypertensive chronic kidney disease with stage 1 through stage 4 chronic kidney disease, or unspecified chronic kidney disease
CPT/HCPCS: 36415; 80053; 82977; 83735; 85014; 85018; 85025; 85048; 85049; 87522; 93005; 94640; 96374; 96375; 99284

== ENCOUNTER → 2021-11-02 09:26 | Outpatient (CLI) | payer MEDICARE, MEDICAID, SELFPAY ==
[2021-11-02 10:01] LABS: Hematocrit 30.9 % (42.0-52.0); Mean Corpuscular HGB Conc 32.2 g/dL (31.8-35.4); Mean Corpuscular Hemoglobin 31.7 pg (27.0-31.2); Mean Corpuscular Volume 98.5 fl (80-94); Platelet Count 173 K/mm3 (142-424); Red Blood Count 3.14 M/mm3 (4.60-6.20); Red Cell Distribution Width 13.9 % (11.5-17.5); White Blood Count 5.6 K/mm3 (4.8-10.8)
[2021-11-02 10:30] LABS: Alanine Aminotransferase 12 U/L (12-78); Albumin Level 3.9 g/dl (3.5-5.0); Alkaline Phosphatase 133 U/L (38-126); Anion Gap 10.1 mEq/L (5-15); Aspartate Amino Transferase 19 U/L (17-59); Bilirubin,Total 0.2 mg/dl (0.2-1.3); Blood Urea Nitrogen 32 mg/dl (9-20); Calcium 8.9 mg/dl (8.4-10.2); Carbon Dioxide 19 mmol/L (22.0-30.0); Chloride 115 mmol/L (98-107); Estimated Glomerular Filt Rate 34 ml/min (>60); GFR (African American) 41 ML/MIN (>60); Gamma Glutamyl Transpeptidase 15 U/L (15-73); Glucose 85 mg/dl (74-100); Magnesium 1.8 mg/dl (1.6-2.3); Sodium 138 mmol/L (136-145); Total Protein,Serum 5.9 g/dl (6.3-8.2)
[2021-11-02 10:46] LABS: Potassium 6.1 mmoL/L (3.5-5.1)
== END ==
PROVIDERS: PCP Emergency Medicine; Visit Provider Transplant Surgery
DX: Z94.4 Liver transplant status (principal); B18.2 Chronic viral hepatitis C
CPT/HCPCS: 36415; 80053; 82977; 83735; 85014; 85018; 85048; 85049; 87522

== ENCOUNTER 2021-11-02 11:37 | Emergency (ER) | payer MEDICARE, MEDICAID, SELFPAY ==
[2021-11-02 11:45] VITALS: BP 163/74; PULSE 51; RESP 15; O2SAT 100
[2021-11-02 11:46] VITALS: BP 181/81; PULSE 62; RESP 18; TEMP 36.8; O2SAT 99; BMI 25.1
--- NOTE | 2021-11-02 11:49 | ECG_ITS ---
APPROVED REPORT Exam: Resting ECG HR:49 bpm ECG Measurements Heart Rate 49 AXES AK 173 P 49 QRSd 83 QRS 28 QT 427 T 59 QTc 397 Conclusion SINUS BRADYCARDIA BORDERLINE ECG UNCONFIRMED REPORT Electronically signed by : Octaviano Tapia MD 11/03/2021 21:09:37
[2021-11-02 12:00] VITALS: BP 155/85; PULSE 54; RESP 15; O2SAT 100
--- NOTE | 2021-11-02 12:05 | PC.NURSE ---
alex RN in room attempting IV access and obtaining labs
--- NOTE | 2021-11-02 12:07 | PC.NURSE ---
IV established and blood sent to the lab
--- NOTE | 2021-11-02 12:08 | HMH.EDGENADL ---
ED Disposition Clinical Impression: Hyperkalemia Disposition: Home, Self-Care Condition on Discharge: Good Instructions: DI for Hyperkalemia Additional Instructions: Continue taking Veltassa for high potassium. The transplant team will contact you regarding instructions for getting a repeat potassium level performed and also they will send in a new prescription for Veltassa for you. You are scheduled to see a pest control pilot (kidney doctor) at [facility] on 12/05/2021 at 11:20 AM for further management of kidney problems and high potassium. Referrals: Ced Al MD [Primary Care Provider] - - Critical Care Critical Care Time: No Attestation: On 11/02/21, the high probability of a clinically significant, sudden or life threatening deterioration of the following system(s) required my full and direct attention, intervention and personal management. The time I documented below is in addition to time spent performing reported procedures but includes the following listed in this critical care notation. Medical Decision Making - Blaze Inquiry Pt receiving controlled substance: No Vital Signs: 11/02/21 11:45 11/02/21 11:46 11/02/21 12:00 Temperature 98.2 F Temperature Source Oral Pulse Rate 51 L 54 L Pulse Rate [Left Radial] 62 Respiratory Rate 15 18 15 Blood Pressure 163/74 H 155/85 H Blood Pressure [Right Arm] 181/81 H Blood Pressure Mean 103 108 Blood Pressure Mean [Right Arm] 114 02 Sat by Pulse Oximetry 100 99 100 11/02/21 12:30 11/02/21 13:10 Temperature Temperature Source Pulse Rate 51 L 50 L Pulse Rate [Left Radial] Respiratory Rate 16 Blood Pressure 155/78 H Blood Pressure [Right Arm] Blood Pressure Mean 103 Blood Pressure Mean [Right Arm] 02 Sat by Pulse Oximetry 100 - Lab Data Lab Results 11/02/21 12:05: WBC 5.1, RBC 3.38 L, Hgb 10.3 L, Hct 32.8 L, MCV 97.3 H, MCH 30.6, MCHC 31.5 L, RDW 14.2, Plt Count 176, MPV 9.1, Neut % (Auto) 73.4, Lymph % (Auto) 16.4, [place] % (Auto) 5.1, Eos % (Auto) 4.4, Baso % (Auto) 0.8, Neut # (Auto) 3.8, Lymph # (Auto) 0.8, [place] # (Auto) 0.3, Eos # (Auto) 0.2, Baso # (Auto) 0.0 11/02/21 12:05: Sodium 140, Potassium 6.0 H, Chloride 113 H, Carbon Dioxide 20 L, Anion Gap 13.0, BUN 33 H, Creatinine 1.90 H, Estimated Creat Clear 44, Estimated GFR 36 L, Est GFR ( Amer) 43 L, Glucose 104 H D, Calcium 9.2, Total Bilirubin 0.4, AST 28 D, ALT 14, Alkaline Phosphatase 141 H, Total Protein 6.6, Albumin 4.2, Globulin 2.4, Albumin/Globulin Ratio 1.8 Result diagrams: 11/02/21 12:05 11/02/21 12:05 Orders (Tests/Meds): ED MEDICATIONS Discontinued Medications Generic Name Dose Route Start Last Admin Trade Name Freq PRN Reason Stop Dose Admin Albuterol Sulfate 2.5 mg 11/02/21 12:49 11/02/21 13:09 Albuterol 0.083% 2.5 Mg/3 Ml Neb IH 11/02/21 12:50 2.5 mg ONCE ONE Administration Dextrose 50 ml 11/02/21 12:49 11/02/21 13:05 Dextrose 50% 50ml Syringe (Crash Cart) IVP 11/02/21 12:50 50 ml ONCE ONE Administration Insulin Human Regular 10 unit 11/02/21 12:49 11/02/21 13:05 Insulin Human Regular 100 Units/Ml 10ml Vial IVP 11/02/21 12:50 10 unit ONCE ONE Administration - ECG Data Tracing #1 EKG interpreted by Antelmo Rivera MD: Rhythm: sinus bradycardia Rate: 49 [place]: normal Ectopy: none Conduction: normal ST Segment Changes: none T Wave Changes: none, no peaked T waves Q Waves: none No evidence of acute ischemia or injury - Physician Consults Physician Consulted: Madan Time: 13:00 Reason -: Pt condition Comment/Response: Discussed clinical findings. I will call patient's transplant team. Additional Consult: Jana - transplant team Time: 13:28 Reason -: Pt condition Comment/Response: States that she has encouraged him to follow-up with his pest control pilot regarding his persistent hyperkalemia. She requests that I contact his pest control pilot. Patient's contact
[2021-11-02 12:24] LABS: Basophils % 0.8 % (0.1-2.0); Eosinophils # 0.2 K/mm3 (0.0-0.4); Eosinophils % 4.4 % (0.1-12.0); Hematocrit 32.8 % (42.0-52.0); Hemoglobin 10.3 g/dL (14.1-18.0); Lymphocytes # 0.8 K/mm3 (0.7-4.5); Lymphocytes % 16.4 % (10-50); Mean Corpuscular HGB Conc 31.5 g/dL (31.8-35.4); Mean Corpuscular Hemoglobin 30.6 pg (27.0-31.2); Mean Corpuscular Volume 97.3 fl (80-94); Mean Platelet Volume 9.1 fl (7.4-10.4); Monocytes # 0.3 K/mm3 (0.1-1.0); Monocytes % 5.1 % (1.7-9.3); Neutrophils # 3.8 K/mm3 (1.8-7.8); Neutrophils % 73.4 % (37.0-80.0); Platelet Count 176 K/mm3 (142-424); Red Blood Count 3.38 M/mm3 (4.60-6.20); Red Cell Distribution Width 14.2 % (11.5-17.5); White Blood Count 5.1 K/mm3 (4.8-10.8)
[2021-11-02 12:28] LABS: Alanine Aminotransferase 14 U/L (12-78); Albumin Level 4.2 g/dl (3.5-5.0); Albumin/Globulin Ratio 1.8 (1.1-1.8); Alkaline Phosphatase 141 U/L (38-126); Aspartate Amino Transferase 28 U/L (17-59); Bilirubin,Total 0.4 mg/dl (0.2-1.3); Blood Urea Nitrogen 33 mg/dl (9-20); Calcium 9.2 mg/dl (8.4-10.2); Carbon Dioxide 20 mmol/L (22.0-30.0); Chloride 113 mmol/L (98-107); Creatinine Clearance Estimated 44 mL/min (50-200); Estimated Glomerular Filt Rate 36 ml/min (>60); GFR (African American) 43 ML/MIN (>60); Globulin 2.4 g/dL (1.3-3.2); Glucose 104 mg/dl (74-100); Sodium 140 mmol/L (136-145); Total Protein,Serum 6.6 g/dl (6.3-8.2)
[2021-11-02 12:30] VITALS: BP 155/78; PULSE 51; RESP 16; O2SAT 100
--- NOTE | 2021-11-02 12:31 | PC.NURSE ---
notified ER of critical potassium result
--- NOTE | 2021-11-02 12:49 | PC.NURSE ---
requested that glass ribbon machine operator assistant page dr. vergara
--- NOTE | 2021-11-02 12:52 | PC.NURSE ---
Dr. Madan yu for ER MD
--- NOTE | 2021-11-02 13:00 | PC.NURSE ---
notified RT of neb treatment order
--- NOTE | 2021-11-02 13:02 | PC.NURSE ---
Dr. Hager called back and is speaking to Dr. Rivera at this time.
--- NOTE | 2021-11-02 13:06 | PC.NURSE ---
RT at BS
[2021-11-02 13:10] VITALS: PULSE 48; PULSE 50
--- NOTE | 2021-11-02 13:14 | PC.NURSE ---
Called patients to get patients transplant team number so ER MD can speak with them. Transplant Nurse Coordinator: [phone]
--- NOTE | 2021-11-02 13:18 | PC.NURSE ---
pts spouse called back and gave me the direct liver transplant nurse's name and number that they speak with every couple of weeks: Jana-- p: [phone] I called this number and left a VM for the Nurse to call our ER back regarding this patient. ER MD aware
--- NOTE | 2021-11-02 13:27 | PC.NURSE ---
JOE MORELOS speaking with Jana (liver head start coordinator)
--- NOTE | 2021-11-02 13:37 | PC.NURSE ---
contacted jennifer (liver transplant nurse coordinator) again at this time r/t ER requesting to speak to her again. Voice mail left
--- NOTE | 2021-11-02 13:56 | PC.NURSE ---
JOE MORELOS speaking with Jana (pharmacy care coordinator) again at this time.
--- NOTE | 2021-11-02 14:03 | PC.NURSE ---
per jennifer to JOE MORELOS pt has an appt scheduled in november here at [facility] with dr. smyth at the speciality clinic. Spoke with clinic staff who gave me dr. haja Camp's nurse, phone number to contact to verify appt. States they do have access to the pt schedule until a few days prior to dr. smyth being in clinic. Left a voicemail for Zoë at [phone] asking for a return call.
[2021-11-02 14:16] VITALS: BP 158/81; PULSE 54; RESP 18; TEMP 36.8; O2SAT 99
--- NOTE | 2021-11-03 09:35 | PC.NURSE ---
Zoë from nephrology clinic called back at this time, verified appt for pt with her at this time. States pt is scheduled for December 05 at 11:40 am at the [facility] specialty clinic. contacted Pt, shruthi answered. Notified her Zoë from nephrology called back, appt verified with her for December 05 at 11:40 am at the [facility] specialty clinic. Notified ER the specialty clinic is on the ground level right down from the ER. Pt verbalized understanding.
== END 2021-11-02 14:17 | disposition home or self-care (01) ==
PROVIDERS: Emergency Provider Emergency Medicine; PCP Emergency Medicine
DX: E87.5 Hyperkalemia (principal); Z94.4 Liver transplant status; Z79.82 Long term (current) use of aspirin; Z79.899 Other long term (current) drug therapy; I42.9 Cardiomyopathy, unspecified; I11.0 Hypertensive heart disease with heart failure; I50.9 Heart failure, unspecified; I25.10 Atherosclerotic heart disease of native coronary artery without angina pectoris; F41.9 Anxiety disorder, unspecified; D64.9 Anemia, unspecified; Z87.891 Personal history of nicotine dependence
CPT/HCPCS: 36415; 80053; 82977; 83735; 85014; 85018; 85025; 85048; 85049; 87522; 93005; 96374; 96375; 99284

== ENCOUNTER → 2021-11-09 09:06 | Outpatient (CLI) | payer MEDICARE, MEDICAID, SELFPAY ==
[2021-11-09 09:32] LABS: Hematocrit 30.1 % (42.0-52.0); Hemoglobin 10.1 g/dL (14.1-18.0); Mean Corpuscular HGB Conc 33.6 g/dL (31.8-35.4); Mean Corpuscular Hemoglobin 31.9 pg (27.0-31.2); Platelet Count 191 K/mm3 (142-424); Red Blood Count 3.17 M/mm3 (4.60-6.20); Red Cell Distribution Width 14.2 % (11.5-17.5); White Blood Count 3.9 K/mm3 (4.8-10.8)
[2021-11-09 09:56] LABS: Alanine Aminotransferase 16 U/L (12-78); Albumin/Globulin Ratio 1.8 (1.1-1.8); Alkaline Phosphatase 145 U/L (38-126); Anion Gap 12.9 mEq/L (5-15); Aspartate Amino Transferase 24 U/L (17-59); Bilirubin,Total 0.6 mg/dl (0.2-1.3); Blood Urea Nitrogen 33 mg/dl (9-20); Calcium 9.3 mg/dl (8.4-10.2); Carbon Dioxide 20 mmol/L (22.0-30.0); Chloride 113 mmol/L (98-107); Estimated Glomerular Filt Rate 32 ml/min (>60); GFR (African American) 38 ML/MIN (>60); Gamma Glutamyl Transpeptidase 14 U/L (15-73); Globulin 2.2 g/dL (1.3-3.2); Glucose 122 mg/dl (74-100); Magnesium 1.9 mg/dl (1.6-2.3); Sodium 139 mmol/L (136-145); Total Protein,Serum 6.2 g/dl (6.3-8.2)
[2021-11-09 10:01] LABS: Potassium 6.9 mmoL/L (3.5-5.1)
== END ==
PROVIDERS: PCP Emergency Medicine; Visit Provider Transplant Surgery
DX: E87.5 Hyperkalemia (principal)
CPT/HCPCS: 36415; 80053; 82977; 83735; 85014; 85018; 85048; 85049; 87522

== ENCOUNTER 2021-11-09 10:48 | Emergency (ER) | payer MEDICARE, MEDICAID, SELFPAY ==
[2021-11-09] VITALS (10 sets, daily range): BP systolic 143–165; BP diastolic 72–90; PULSE 46–69; RESP 16–18; TEMP 37.2; O2SAT 97–100; BMI 25.1
--- NOTE | 2021-11-09 10:56 | ECG_ITS ---
APPROVED REPORT Exam: Resting ECG HR:52 bpm ECG Measurements Heart Rate 52 AXES CA 165 P 51 QRSd 84 QRS 15 QT 411 T 47 QTc 390 Conclusion SINUS BRADYCARDIA BORDERLINE ECG UNCONFIRMED REPORT Electronically signed by : Octaviano Tapia MD 11/12/2021 09:36:48
--- NOTE | 2021-11-09 10:56 | HMH.EDGENADL ---
ED Disposition Clinical Impression: Hyperkalemia Disposition: Home, Self-Care Condition on Discharge: Good Prescriptions: Sodium Zirconium Cyclosilicate [Lokelma] 10 gm PO DAILY 30 Days #30 each Transmission Status: Received by - [facility] Referrals: Ced Al MD [Primary Care Provider] - - Critical Care Critical Care Time: No Attestation: On , the high probability of a clinically significant, sudden or life threatening deterioration of the following system(s) required my full and direct attention, intervention and personal management. The time I documented below is in addition to time spent performing reported procedures but includes the following listed in this critical care notation. Medical Decision Making - Blaze Inquiry Pt receiving controlled substance: No Blaze was queried for this patient: No Vital Signs: 11/09/21 10:48 11/09/21 10:55 11/09/21 11:00 Temperature 98.9 F Temperature Source Oral Pulse Rate 68 69 Pulse Rate [Left Radial] 51 L Respiratory Rate 18 Blood Pressure 152/79 H 150/72 H Blood Pressure [Right Arm] 152/79 H Blood Pressure Mean 121 118 Blood Pressure Mean [Right Arm] 103 Blood Pressure Source [Right Arm] Automatic Cuff Blood Pressure Position [Right Arm] Sitting 02 Sat by Pulse Oximetry 98 99 99 Oxygen Delivery Method Room Air 11/09/21 11:31 11/09/21 12:00 11/09/21 12:30 Temperature Temperature Source Pulse Rate 50 L 46 L 46 L Pulse Rate [Left Radial] Respiratory Rate 16 Blood Pressure 143/76 H 145/82 H 149/90 H Blood Pressure [Right Arm] Blood Pressure Mean 117 119 115 Blood Pressure Mean [Right Arm] Blood Pressure Source [Right Arm] Blood Pressure Position [Right Arm] 02 Sat by Pulse Oximetry 99 99 99 Oxygen Delivery Method 11/09/21 13:00 Temperature Temperature Source Pulse Rate 47 L Pulse Rate [Left Radial] Respiratory Rate Blood Pressure 151/76 H Blood Pressure [Right Arm] Blood Pressure Mean 101 Blood Pressure Mean [Right Arm] Blood Pressure Source [Right Arm] Blood Pressure Position [Right Arm] 02 Sat by Pulse Oximetry 100 Oxygen Delivery Method - Lab Data Lab Results 11/09/21 11:05: Sodium 139, Potassium 6.2 H*, Chloride 112 H, Carbon Dioxide 21 L, Anion Gap 12.2, BUN 35 H, Creatinine 2.00 H, Estimated Creat Clear 42, Estimated GFR 34 L, Est GFR ( Amer) 41 L, Glucose 122 H, Calcium 9.2 11/09/21 13:17: Potassium 5.8 H Result diagrams: 11/09/21 13:17 Orders (Tests/Meds): ED MEDICATIONS Discontinued Medications Generic Name Dose Route Start Last Admin Trade Name Roberto Carlos PRN Reason Stop Dose Admin Albuterol Sulfate 2.5 mg 11/09/21 11:48 11/09/21 12:45 Albuterol 0.083% 2.5 Mg/3 Ml Neb IH 11/09/21 11:49 2.5 mg ONCE ONE Administration Dextrose 50 ml 11/09/21 11:47 11/09/21 12:45 Dextrose 50% 50ml Syringe (Crash Cart) IVP 11/09/21 11:48 50 ml ONCE ONE Administration Insulin Human Regular 10 unit 11/09/21 11:46 11/09/21 12:45 Insulin Human Regular 100 Units/Ml 10ml Vial IVP 11/09/21 11:47 10 unit ONCE ONE Administration Medical Decision Narrative: In review this is a 65-year-old male who presents with hyperkalemia. Hemodynamically stable and nontoxic-appearing. EKG shows normal sinus rhythm without any acute changes. A repeat BMP here shows a potassium of 6.2. He was given 10 units of insulin as well as dextrose and albuterol and his repeat potassium is 5.9 which is downtrending. I looked in his past medical records and at 1 point he was also on Lokelma which I think is reasonable to start again as he is needed to come in multiple times over the last week for laboratory studies with hyperkalemia. Patient is agreeable this plan. Stable for discharge. Return precautions given. General Adult HPI - General Stated complaint: high potassium levels Time Seen by Provider: 11/09/21 10:57 - History of Present Illness
--- NOTE | 2021-11-09 11:05 | PC.NURSE ---
blood sent to the lab at this time
[2021-11-09 11:25] LABS: Chloride 112 mmol/L (98-107)
[2021-11-09 11:26] LABS: Sodium 139 mmol/L (136-145)
[2021-11-09 11:28] LABS: Blood Urea Nitrogen 35 mg/dl (9-20)
[2021-11-09 11:29] LABS: Anion Gap 12.2 mEq/L (5-15); Calcium 9.2 mg/dl (8.4-10.2); Carbon Dioxide 21 mmol/L (22.0-30.0); Creatinine Clearance Estimated 42 mL/min (50-200); Estimated Glomerular Filt Rate 34 ml/min (>60); GFR (African American) 41 ML/MIN (>60); Glucose 122 mg/dl (74-100)
[2021-11-09 11:32] LABS: Potassium 6.2 mmoL/L (3.5-5.1)
--- NOTE | 2021-11-09 12:32 | PC.NURSE ---
rounded on pt,updated pt about poc, no needs at this time
--- NOTE | 2021-11-09 13:03 | PC.NURSE ---
turned off breathing tx and adjusted pt bed for comfort
--- NOTE | 2021-11-09 13:07 | PC.NURSE ---
lab updated that they need to recollect potassium due to medicine given to correct that and need to see if any change. LAb will be to draw blood
[2021-11-09 13:28] LABS: Potassium 5.8 mmoL/L (3.5-5.1)
--- NOTE | 2021-11-09 13:42 | PC.NURSE ---
notified ER of pt repeat K level
== END 2021-11-09 14:05 | disposition home or self-care (01) ==
PROVIDERS: Emergency Provider Student in an Organized Health Care Education/Training Program; PCP Emergency Medicine
DX: E87.5 Hyperkalemia (principal); Z94.4 Liver transplant status
CPT/HCPCS: 36415; 80048; 80053; 82977; 83735; 84132; 85014; 85018; 85048; 85049; 87522; 93005; 96374; 96375; 99284

== ENCOUNTER → 2021-11-16 09:28 | Outpatient (CLI) | payer MEDICARE, MEDICAID, SELFPAY ==
[2021-11-16 09:53] LABS: Hematocrit 28.5 % (42.0-52.0); Hemoglobin 9.1 g/dL (14.1-18.0); Mean Corpuscular HGB Conc 32.1 g/dL (31.8-35.4); Mean Corpuscular Hemoglobin 31.3 pg (27.0-31.2); Mean Corpuscular Volume 97.7 fl (80-94); Platelet Count 146 K/mm3 (142-424); Red Blood Count 2.91 M/mm3 (4.60-6.20); White Blood Count 2.9 K/mm3 (4.8-10.8)
[2021-11-16 11:05] LABS: Alanine Aminotransferase 13 U/L (12-78); Albumin Level 3.5 g/dl (3.5-5.0); Albumin/Globulin Ratio 1.7 (1.1-1.8); Alkaline Phosphatase 120 U/L (38-126); Anion Gap 10.6 mEq/L (5-15); Aspartate Amino Transferase 20 U/L (17-59); Bilirubin,Total 0.3 mg/dl (0.2-1.3); Blood Urea Nitrogen 30 mg/dl (9-20); Calcium 8.4 mg/dl (8.4-10.2); Carbon Dioxide 18 mmol/L (22.0-30.0); Chloride 115 mmol/L (98-107); Estimated Glomerular Filt Rate 32 ml/min (>60); GFR (African American) 38 ML/MIN (>60); Gamma Glutamyl Transpeptidase 14 U/L (15-73); Globulin 2.1 g/dL (1.3-3.2); Glucose 121 mg/dl (74-100); Magnesium 1.6 mg/dl (1.6-2.3); Potassium 4.6 mmoL/L (3.5-5.1); Sodium 139 mmol/L (136-145); Total Protein,Serum 5.6 g/dl (6.3-8.2)
== END ==
PROVIDERS: PCP Emergency Medicine; Visit Provider Transplant Surgery
DX: Z94.4 Liver transplant status (principal); B18.2 Chronic viral hepatitis C
CPT/HCPCS: 36415; 80053; 82977; 83735; 85014; 85018; 85048; 85049; 87522

== ENCOUNTER → 2021-11-30 09:43 | Outpatient (CLI) | payer MEDICARE, MEDICAID, SELFPAY ==
[2021-11-30 10:11] LABS: Hematocrit 28.8 % (42.0-52.0); Hemoglobin 9.3 g/dL (14.1-18.0); Mean Corpuscular HGB Conc 32.1 g/dL (31.8-35.4); Mean Corpuscular Hemoglobin 30.9 pg (27.0-31.2); Mean Corpuscular Volume 96.2 fl (80-94); Platelet Count 173 K/mm3 (142-424); Red Cell Distribution Width 14.2 % (11.5-17.5); White Blood Count 5.3 K/mm3 (4.8-10.8)
[2021-11-30 11:09] LABS: Alanine Aminotransferase 11 U/L (12-78); Albumin Level 3.6 g/dl (3.5-5.0); Albumin/Globulin Ratio 1.6 (1.1-1.8); Alkaline Phosphatase 132 U/L (38-126); Anion Gap 10.4 mEq/L (5-15); Aspartate Amino Transferase 19 U/L (17-59); Bilirubin,Total 0.2 mg/dl (0.2-1.3); Blood Urea Nitrogen 25 mg/dl (9-20); Calcium 8.6 mg/dl (8.4-10.2); Carbon Dioxide 20 mmol/L (22.0-30.0); Chloride 113 mmol/L (98-107); Estimated Glomerular Filt Rate 41 ml/min (>60); GFR (African American) 49 ML/MIN (>60); Gamma Glutamyl Transpeptidase 14 U/L (15-73); Globulin 2.2 g/dL (1.3-3.2); Glucose 101 mg/dl (74-100); Magnesium 1.5 mg/dl (1.6-2.3); Potassium 4.4 mmoL/L (3.5-5.1); Sodium 139 mmol/L (136-145); Total Protein,Serum 5.8 g/dl (6.3-8.2)
== END ==
PROVIDERS: PCP Emergency Medicine; Visit Provider Transplant Surgery
DX: Z94.4 Liver transplant status (principal); Z79.899 Other long term (current) drug therapy
CPT/HCPCS: 36415; 80053; 82977; 83735; 85014; 85018; 85048; 85049; 87522

== ENCOUNTER → 2021-12-21 09:45 | Outpatient (CLI) | payer MEDICARE, MEDICAID, SELFPAY ==
[2021-12-21 10:10] LABS: Hematocrit 29.7 % (42.0-52.0); Hemoglobin 9.7 g/dL (14.1-18.0); Mean Corpuscular HGB Conc 32.8 g/dL (31.8-35.4); Mean Corpuscular Hemoglobin 30.7 pg (27.0-31.2); Mean Corpuscular Volume 93.6 fl (80-94); Platelet Count 194 K/mm3 (142-424); Red Blood Count 3.18 M/mm3 (4.60-6.20); Red Cell Distribution Width 13.7 % (11.5-17.5); White Blood Count 5.1 K/mm3 (4.8-10.8)
[2021-12-21 12:12] LABS: Alanine Aminotransferase 13 U/L (12-78); Albumin Level 3.7 g/dl (3.5-5.0); Albumin/Globulin Ratio 1.8 (1.1-1.8); Alkaline Phosphatase 121 U/L (38-126); Anion Gap 13.1 mEq/L (5-15); Aspartate Amino Transferase 21 U/L (17-59); Bilirubin,Total 0.4 mg/dl (0.2-1.3); Blood Urea Nitrogen 30 mg/dl (9-20); Calcium 8.5 mg/dl (8.4-10.2); Carbon Dioxide 19 mmol/L (22.0-30.0); Chloride 113 mmol/L (98-107); Estimated Glomerular Filt Rate 30 ml/min (>60); GFR (African American) 36 ML/MIN (>60); Gamma Glutamyl Transpeptidase 15 U/L (15-73); Globulin 2.1 g/dL (1.3-3.2); Glucose 98 mg/dl (74-100); Magnesium 1.5 mg/dl (1.6-2.3); Potassium 5.1 mmoL/L (3.5-5.1); Sodium 140 mmol/L (136-145); Total Protein,Serum 5.8 g/dl (6.3-8.2)
== END ==
PROVIDERS: Transplant Surgery; PCP Emergency Medicine; Visit Provider Nurse Practitioner Family
DX: B18.2 Chronic viral hepatitis C (principal); Z94.4 Liver transplant status
CPT/HCPCS: 36415; 80053; 82977; 83735; 85014; 85018; 85048; 85049; 87522

== ENCOUNTER → 2022-01-04 09:54 | Outpatient (CLI) | payer MEDICARE, MEDICAID, SELFPAY ==
[2022-01-04 11:16] LABS: Basophils % 0.7 % (0.1-2.0); Eosinophils # 0.2 K/mm3 (0.0-0.4); Eosinophils % 2.5 % (0.1-12.0); Hematocrit 34.6 % (42.0-52.0); Hemoglobin 11.4 g/dL (14.1-18.0); Lymphocytes # 1.3 K/mm3 (0.7-4.5); Mean Corpuscular HGB Conc 32.8 g/dL (31.8-35.4); Mean Corpuscular Hemoglobin 30.3 pg (27.0-31.2); Mean Corpuscular Volume 92.2 fl (80-94); Mean Platelet Volume 9.3 fl (7.4-10.4); Monocytes # 0.3 K/mm3 (0.1-1.0); Monocytes % 4.5 % (1.7-9.3); Neutrophils # 4.7 K/mm3 (1.8-7.8); Neutrophils % 72.2 % (37.0-80.0); Platelet Count 186 K/mm3 (142-424); Red Blood Count 3.75 M/mm3 (4.60-6.20); White Blood Count 6.5 K/mm3 (4.8-10.8)
[2022-01-04 11:23] LABS: Alanine Aminotransferase 13 U/L (12-78); Albumin Level 4.1 g/dl (3.5-5.0); Albumin/Globulin Ratio 1.8 (1.1-1.8); Alkaline Phosphatase 137 U/L (38-126); Anion Gap 15.2 mEq/L (5-15); Aspartate Amino Transferase 21 U/L (17-59); Bilirubin,Total 0.3 mg/dl (0.2-1.3); Blood Urea Nitrogen 40 mg/dl (9-20); Carbon Dioxide 22 mmol/L (22.0-30.0); Chloride 109 mmol/L (98-107); Estimated Glomerular Filt Rate 29 ml/min (>60); GFR (African American) 34 ML/MIN (>60); Gamma Glutamyl Transpeptidase 16 U/L (15-73); Globulin 2.3 g/dL (1.3-3.2); Glucose 88 mg/dl (74-100); Magnesium 1.6 mg/dl (1.6-2.3); Potassium 5.2 mmoL/L (3.5-5.1); Sodium 141 mmol/L (136-145); Total Protein,Serum 6.4 g/dl (6.3-8.2)
== END ==
PROVIDERS: PCP Emergency Medicine; Visit Provider Transplant Surgery
DX: B18.2 Chronic viral hepatitis C (principal); Z94.4 Liver transplant status; Z79.899 Other long term (current) drug therapy
CPT/HCPCS: 36415; 80053; 82977; 83735; 85025; 87522

== ENCOUNTER → 2022-01-25 11:56 | Outpatient (CLI) | payer MEDICARE, MEDICAID, SELFPAY ==
[2022-01-25 12:44] LABS: Basophils % 0.7 % (0.1-2.0); Eosinophils # 0.2 K/mm3 (0.0-0.4); Eosinophils % 2.8 % (0.1-12.0); Hematocrit 34.7 % (42.0-52.0); Hemoglobin 11.6 g/dL (14.1-18.0); Lymphocytes % 17.2 % (10-50); Mean Corpuscular HGB Conc 33.4 g/dL (31.8-35.4); Mean Corpuscular Hemoglobin 31.3 pg (27.0-31.2); Mean Corpuscular Volume 93.8 fl (80-94); Mean Platelet Volume 9.2 fl (7.4-10.4); Monocytes # 0.3 K/mm3 (0.1-1.0); Monocytes % 5.1 % (1.7-9.3); Neutrophils # 4.2 K/mm3 (1.8-7.8); Neutrophils % 74.2 % (37.0-80.0); Platelet Count 220 K/mm3 (142-424); Red Cell Distribution Width 13.7 % (11.5-17.5); White Blood Count 5.7 K/mm3 (4.8-10.8)
[2022-01-25 13:08] LABS: Alanine Aminotransferase 15 U/L (12-78); Albumin Level 3.7 g/dl (3.5-5.0); Albumin/Globulin Ratio 1.7 (1.1-1.8); Alkaline Phosphatase 135 U/L (38-126); Anion Gap 16.3 mEq/L (5-15); Aspartate Amino Transferase 22 U/L (17-59); Bilirubin,Total 0.4 mg/dl (0.2-1.3); Blood Urea Nitrogen 32 mg/dl (9-20); Calcium 8.5 mg/dl (8.4-10.2); Carbon Dioxide 20 mmol/L (22.0-30.0); Chloride 110 mmol/L (98-107); Estimated Glomerular Filt Rate 32 ml/min (>60); GFR (African American) 38 ML/MIN (>60); Gamma Glutamyl Transpeptidase 14 U/L (15-73); Globulin 2.2 g/dL (1.3-3.2); Glucose 98 mg/dl (74-100); Magnesium 1.4 mg/dl (1.6-2.3); Potassium 5.3 mmoL/L (3.5-5.1); Sodium 141 mmol/L (136-145); Total Protein,Serum 5.9 g/dl (6.3-8.2)
== END ==
PROVIDERS: PCP Emergency Medicine; Visit Provider Transplant Surgery
DX: Z94.4 Liver transplant status (principal); Z79.899 Other long term (current) drug therapy
CPT/HCPCS: 36415; 80053; 82977; 83735; 85025; 87522

== ENCOUNTER → 2022-02-08 09:54 | Outpatient (CLI) | payer MEDICARE, MEDICAID, SELFPAY ==
[2022-02-08 10:34] LABS: Hematocrit 32.9 % (42.0-52.0); Mean Corpuscular HGB Conc 33.3 g/dL (31.8-35.4); Mean Corpuscular Hemoglobin 30.2 pg (27.0-31.2); Mean Corpuscular Volume 90.6 fl (80-94); Platelet Count 192 K/mm3 (142-424); Red Blood Count 3.63 M/mm3 (4.60-6.20); Red Cell Distribution Width 13.9 % (11.5-17.5); White Blood Count 5.5 K/mm3 (4.8-10.8)
[2022-02-08 10:51] LABS: Alanine Aminotransferase 14 U/L (12-78); Albumin Level 4.1 g/dl (3.5-5.0); Albumin/Globulin Ratio 1.9 (1.1-1.8); Alkaline Phosphatase 155 U/L (38-126); Anion Gap 14.4 mEq/L (5-15); Aspartate Amino Transferase 21 U/L (17-59); Bilirubin,Total 0.6 mg/dl (0.2-1.3); Blood Urea Nitrogen 31 mg/dl (9-20); Calcium 9.8 mg/dl (8.4-10.2); Carbon Dioxide 21 mmol/L (22.0-30.0); Chloride 110 mmol/L (98-107); Estimated Glomerular Filt Rate 33 ml/min (>60); GFR (African American) 41 ML/MIN (>60); Gamma Glutamyl Transpeptidase 16 U/L (15-73); Globulin 2.2 g/dL (1.3-3.2); Glucose 85 mg/dl (74-100); Magnesium 1.5 mg/dl (1.6-2.3); Potassium 5.4 mmoL/L (3.5-5.1); Sodium 140 mmol/L (136-145); Total Protein,Serum 6.3 g/dl (6.3-8.2)
== END ==
PROVIDERS: PCP Emergency Medicine; Visit Provider Transplant Surgery
DX: Z79.899 Other long term (current) drug therapy (principal); Z94.4 Liver transplant status; B18.2 Chronic viral hepatitis C
CPT/HCPCS: 36415; 80053; 82977; 83735; 85014; 85018; 85048; 85049; 87522

== ENCOUNTER → 2022-02-22 10:03 | Outpatient (CLI) | payer MEDICARE, MEDICAID, SELFPAY ==
[2022-02-22 10:39] LABS: Hematocrit 33.2 % (42.0-52.0); Hemoglobin 10.6 g/dL (14.1-18.0); Mean Corpuscular Hemoglobin 29.7 pg (27.0-31.2); Mean Corpuscular Volume 92.8 fl (80-94); Platelet Count 200 K/mm3 (142-424); Red Blood Count 3.58 M/mm3 (4.60-6.20); Red Cell Distribution Width 14.4 % (11.5-17.5); White Blood Count 5.8 K/mm3 (4.8-10.8)
[2022-02-22 11:11] LABS: Chloride 110 mmol/L (98-107); Sodium 141 mmol/L (136-145)
[2022-02-22 11:13] LABS: Alanine Aminotransferase 11 U/L (12-78); Aspartate Amino Transferase 20 U/L (17-59); Blood Urea Nitrogen 29 mg/dl (9-20); Estimated Glomerular Filt Rate 36 ml/min (>60); GFR (African American) 43 ML/MIN (>60)
[2022-02-22 11:14] LABS: Albumin Level 4.2 g/dl (3.5-5.0); Alkaline Phosphatase 126 U/L (38-126); Bilirubin,Total 0.6 mg/dl (0.2-1.3); Calcium 9.5 mg/dl (8.4-10.2); Carbon Dioxide 21 mmol/L (22.0-30.0); Gamma Glutamyl Transpeptidase 15 U/L (15-73); Globulin 2.1 g/dL (1.3-3.2); Glucose 89 mg/dl (74-100); Magnesium 1.6 mg/dl (1.6-2.3); Total Protein,Serum 6.3 g/dl (6.3-8.2)
== END ==
PROVIDERS: PCP Emergency Medicine; Visit Provider Transplant Surgery
DX: B18.2 Chronic viral hepatitis C (principal); Z94.4 Liver transplant status; Z79.899 Other long term (current) drug therapy
CPT/HCPCS: 36415; 80053; 82977; 83735; 85014; 85018; 85048; 85049; 87522

== ENCOUNTER → 2022-02-27 10:28 | Outpatient (POV) | payer MEDICARE, MEDICAID, SELFPAY | PROVIDERS: Visit Provider Internal Medicine Nephrology | DX: Z00.00 Encounter for general adult medical examination without abnormal findings (principal) ==

== ENCOUNTER → 2022-03-08 09:53 | Outpatient (CLI) | payer MEDICARE, MEDICAID, SELFPAY ==
[2022-03-08 10:30] LABS: Hematocrit 35.2 % (42.0-52.0); Hemoglobin 11.6 g/dL (14.1-18.0); Mean Corpuscular Hemoglobin 30.7 pg (27.0-31.2); Mean Corpuscular Volume 93.1 fl (80-94); Platelet Count 189 K/mm3 (142-424); Red Blood Count 3.78 M/mm3 (4.60-6.20); Red Cell Distribution Width 13.9 % (11.5-17.5); White Blood Count 6.7 K/mm3 (4.8-10.8)
[2022-03-08 10:58] LABS: Alanine Aminotransferase 13 U/L (12-78); Albumin Level 4.3 g/dl (3.5-5.0); Albumin/Globulin Ratio 2.3 (1.1-1.8); Alkaline Phosphatase 134 U/L (38-126); Anion Gap 11.6 mEq/L (5-15); Aspartate Amino Transferase 22 U/L (17-59); Bilirubin,Total 0.4 mg/dl (0.2-1.3); Blood Urea Nitrogen 41 mg/dl (9-20); Calcium 9.3 mg/dl (8.4-10.2); Carbon Dioxide 27 mmol/L (22.0-30.0); Chloride 109 mmol/L (98-107); Estimated Glomerular Filt Rate 27 ml/min (>60); GFR (African American) 33 ML/MIN (>60); Gamma Glutamyl Transpeptidase 17 U/L (15-73); Globulin 1.9 g/dL (1.3-3.2); Glucose 106 mg/dl (74-100); Magnesium 2.3 mg/dl (1.6-2.3); Potassium 5.6 mmoL/L (3.5-5.1); Sodium 142 mmol/L (136-145); Total Protein,Serum 6.2 g/dl (6.3-8.2)
== END ==
PROVIDERS: PCP Emergency Medicine; Visit Provider Transplant Surgery
DX: Z94.4 Liver transplant status (principal); B18.2 Chronic viral hepatitis C; Z79.899 Other long term (current) drug therapy
CPT/HCPCS: 36415; 80053; 82977; 83735; 85014; 85018; 85048; 85049; 87522

== ENCOUNTER → 2022-03-21 14:44 | Outpatient (CLI) | payer MEDICARE, MEDICAID, SELFPAY ==
[2022-03-21 13:48] LABS: Chloride 106 mmol/L (98-107); Sodium 140 mmol/L (136-145)
[2022-03-21 13:51] LABS: Blood Urea Nitrogen 23 mg/dl (9-20); Carbon Dioxide 24 mmol/L (22.0-30.0); Estimated Glomerular Filt Rate 38 ml/min (>60); GFR (African American) 46 ML/MIN (>60)
[2022-03-21 13:52] LABS: Calcium 9.6 mg/dl (8.4-10.2); Glucose 117 mg/dl (74-100)
== END ==
PROVIDERS: PCP Emergency Medicine; Visit Provider Emergency Medicine
DX: N28.9 Disorder of kidney and ureter, unspecified (principal)
CPT/HCPCS: 80048

== ENCOUNTER → 2022-03-22 10:00 | Outpatient (CLI) | payer MEDICARE, MEDICAID, SELFPAY ==
[2022-03-22 10:44] LABS: Basophils % 0.7 % (0.1-2.0); Eosinophils # 0.1 K/mm3 (0.0-0.4); Eosinophils % 1.2 % (0.1-12.0); Hematocrit 36.8 % (42.0-52.0); Hemoglobin 12.2 g/dL (14.1-18.0); Lymphocytes # 0.8 K/mm3 (0.7-4.5); Lymphocytes % 12.6 % (10-50); Mean Corpuscular HGB Conc 33.1 g/dL (31.8-35.4); Mean Corpuscular Hemoglobin 29.8 pg (27.0-31.2); Mean Corpuscular Volume 90.1 fl (80-94); Monocytes # 0.3 K/mm3 (0.1-1.0); Monocytes % 4.9 % (1.7-9.3); Neutrophils # 5.1 K/mm3 (1.8-7.8); Neutrophils % 80.6 % (37.0-80.0); Platelet Count 213 K/mm3 (142-424); Red Blood Count 4.08 M/mm3 (4.60-6.20); Red Cell Distribution Width 14.2 % (11.5-17.5); White Blood Count 6.3 K/mm3 (4.8-10.8)
[2022-03-22 11:41] LABS: Alanine Aminotransferase 17 U/L (12-78); Albumin Level 4.7 g/dl (3.5-5.0); Albumin/Globulin Ratio 2.1 (1.1-1.8); Alkaline Phosphatase 141 U/L (38-126); Anion Gap 13.8 mEq/L (5-15); Aspartate Amino Transferase 25 U/L (17-59); Bilirubin,Total 0.5 mg/dl (0.2-1.3); Blood Urea Nitrogen 22 mg/dl (9-20); Calcium 9.8 mg/dl (8.4-10.2); Carbon Dioxide 25 mmol/L (22.0-30.0); Chloride 106 mmol/L (98-107); Estimated Glomerular Filt Rate 36 ml/min (>60); GFR (African American) 43 ML/MIN (>60); Gamma Glutamyl Transpeptidase 18 U/L (15-73); Globulin 2.2 g/dL (1.3-3.2); Glucose 114 mg/dl (74-100); Magnesium 1.7 mg/dl (1.6-2.3); Potassium 3.8 mmoL/L (3.5-5.1); Sodium 141 mmol/L (136-145); Total Protein,Serum 6.9 g/dl (6.3-8.2)
== END ==
PROVIDERS: PCP Emergency Medicine; Visit Provider Transplant Surgery
DX: Z94.4 Liver transplant status (principal); B18.2 Chronic viral hepatitis C; Z79.899 Other long term (current) drug therapy
CPT/HCPCS: 36415; 80053; 82977; 83735; 85025; 87522

== ENCOUNTER → 2022-04-19 10:03 | Outpatient (CLI) | payer MEDICARE, MEDICAID, SELFPAY ==
[2022-04-19 12:01] LABS: Basophils % 0.6 % (0.1-2.0); Eosinophils # 0.3 K/mm3 (0.0-0.4); Eosinophils % 3.6 % (0.1-12.0); Hematocrit 36.1 % (42.0-52.0); Hemoglobin 11.7 g/dL (14.1-18.0); Lymphocytes # 1.3 K/mm3 (0.7-4.5); Lymphocytes % 18.3 % (10-50); Mean Corpuscular HGB Conc 32.5 g/dL (31.8-35.4); Mean Corpuscular Hemoglobin 29.9 pg (27.0-31.2); Mean Corpuscular Volume 92.1 fl (80-94); Mean Platelet Volume 9.8 fl (7.4-10.4); Monocytes # 0.5 K/mm3 (0.1-1.0); Monocytes % 6.4 % (1.7-9.3); Platelet Count 244 K/mm3 (142-424); Red Blood Count 3.92 M/mm3 (4.60-6.20); Red Cell Distribution Width 13.9 % (11.5-17.5)
[2022-04-19 14:03] LABS: Alanine Aminotransferase 16 U/L (12-78); Albumin Level 4.5 g/dl (3.5-5.0); Alkaline Phosphatase 118 U/L (38-126); Anion Gap 13.3 mEq/L (5-15); Aspartate Amino Transferase 26 U/L (17-59); Bilirubin,Total 0.5 mg/dl (0.2-1.3); Blood Urea Nitrogen 31 mg/dl (9-20); Calcium 9.1 mg/dl (8.4-10.2); Carbon Dioxide 24 mmol/L (22.0-30.0); Chloride 108 mmol/L (98-107); Estimated Glomerular Filt Rate 38 ml/min (>60); GFR (African American) 46 ML/MIN (>60); Gamma Glutamyl Transpeptidase 21 U/L (15-73); Globulin 2.3 g/dL (1.3-3.2); Glucose 103 mg/dl (74-100); Magnesium 1.7 mg/dl (1.6-2.3); Potassium 5.3 mmoL/L (3.5-5.1); Sodium 140 mmol/L (136-145); Total Protein,Serum 6.8 g/dl (6.3-8.2)
== END ==
PROVIDERS: PCP Emergency Medicine; Visit Provider Transplant Surgery
DX: Z94.4 Liver transplant status (principal); B18.2 Chronic viral hepatitis C; Z79.899 Other long term (current) drug therapy
CPT/HCPCS: 36415; 80053; 82977; 83735; 85025; 87522

== ENCOUNTER 2022-04-22 13:38 | Emergency (ER) | payer MEDICARE, MEDICAID, SELFPAY ==
[2022-04-22 13:38] VITALS: BP 169/90; PULSE 53; RESP 18; TEMP 36.5; O2SAT 98; BMI 26.0
--- NOTE | 2022-04-22 13:45 | PC.NURSE ---
1345 PT PLACED IN C-COLLAR
[2022-04-22 13:53] VITALS: BMI 26.0
--- NOTE | 2022-04-22 13:54 | CT_ITS ---
PROCEDURE INFORMATION: Exam: CT Head Without Contrast Exam date and time: 04/22/2022 2:10 PM Age: 66 years old Clinical indication: Injury or trauma; Fall; Laceration; Without loss of consciousness; Without residual foreign body; Scalp and other: Back of head; Injury date: 04/22/22; Additional info: Fall with loc TECHNIQUE: Imaging protocol: Computed tomography of the head without contrast. Radiation optimization: All CT scans at this facility use at least one of these dose optimization techniques: automated exposure control; mA and/or kV adjustment per patient size (includes targeted exams where dose is matched to clinical indication); or iterative reconstruction. COMPARISON: CT HEAD/BRAIN WO CON 11/29/2018 10:10 PM FINDINGS: Brain: No intracranial hemorrhage. No mass effect, edema or midline shift. Cortical sulci are unremarkable for age. There are diffuse areas of decreased attenuation within the periventricular white matter likely secondary to chronic microvascular changes that have progressed from prior study she and. Cerebral ventricles: No ventriculomegaly. Paranasal sinuses: Visualized sinuses are unremarkable. No fluid levels. Mastoid air cells: Visualized mastoid air cells are well aerated. Bones/joints: Unremarkable. No acute fracture. Soft tissues: Unremarkable. IMPRESSION: 1. No acute intracranial abnormality. 2. Diffuse, chronic white matter microvascular changes.
--- NOTE | 2022-04-22 13:54 | CT_ITS ---
PROCEDURE INFORMATION: Exam: CT Cervical Spine Without Contrast Exam date and time: 04/22/2022 2:12 PM Age: 66 years old Clinical indication: Injury or trauma; Fall; Additional info: Fall with loc TECHNIQUE: Imaging protocol: Computed tomography of the cervical spine without contrast. Radiation optimization: All CT scans at this facility use at least one of these dose optimization techniques: automated exposure control; mA and/or kV adjustment per patient size (includes targeted exams where dose is matched to clinical indication); or iterative reconstruction. COMPARISON: CT CERVICAL SPINE WO CON 11/29/2018 10:13 PM FINDINGS: Bones/joints: There is straightening of normal cervical lordosis. There are degenerative changes lower cervical spine most pronounced C6-C7 with degenerative disc space narrowing and posterior endplate osteophytic lipping. There is facet arthrosis most apparent C3-C4 and C5-C6. There is no fracture, subluxation or traumatic spondylolisthesis.. No severe spinal stenosis. Lungs: Lung apices are normal. Soft tissues: Unremarkable. IMPRESSION: No acute bony abnormalities.
[2022-04-22 14:00] VITALS: BP 158/89; PULSE 54; RESP 20; O2SAT 100
--- NOTE | 2022-04-22 14:08 | PC.NURSE ---
[address]
--- NOTE | 2022-04-22 14:16 | PC.NURSE ---
PT RETURNED FROM CT
[2022-04-22 15:00] VITALS: BP 151/84; PULSE 52; RESP 18; O2SAT 99
--- NOTE | 2022-04-22 16:00 | PC.NURSE ---
1600 4X4'S APPLIED TO LACERATION
--- NOTE | 2022-04-22 16:05 | PC.NURSE ---
DR. ESPINOZA AT BEDSIDE FOR EVALUATION
--- NOTE | 2022-04-22 16:10 | HMH.EDGENADL ---
Discharge Plan Disposition Patient Disposition: Home, Self-Care Condition: Good Chief Complaint: Fall Prescriptions Prescriptions: No Action amlodipine 10 mg tablet 10 mg PO QHS Qty: 90 0RF thiamine HCl (vitamin B1) 50 mg tablet 50 mg PO DAILY tamsulosin 0.4 mg capsule 0.4 mg PO HS aspirin [Adult Aspirin Regimen] 81 mg tablet,delayed release (DR/EC) 81 mg PO DAILY cyclosporine 100 mg/mL solution 100 mg PO Q12H Lokelma 5 gram powder in packet 5 g PO DAILY mycophenolate mofetil 500 mg tablet 500 mg PO BID hydrocodone-acetaminophen 5-325 mg tablet 1 tab PO BID PRN (Reason: pain) Qty: 60 0RF magnesium oxide 400 mg (241.3 mg magnesium) tablet 400 mg PO BID mupirocin 2 % ointment 1 applic topical BID Qty: 22 0RF ciprofloxacin-dexamethasone [Ciprodex] 0.3-0.1 % drops,suspension 4 drp otic (ear) BID 7 Days Qty: 7.5 0RF ergocalciferol (vitamin D2) 1,250 mcg (50,000 unit) capsule 1,250 mcg PO WEEKLY Qty: 12 0RF omeprazole 20 mg capsule,delayed release(DR/EC) 20 mg PO DAILY Qty: 90 0RF propranolol 10 mg tablet 10 mg PO BID Qty: 60 2RF cyanocobalamin (vitamin B-12) 1,000 mcg tablet See Rx Instructions .ROUTE .COMPLEX Qty: 90 0RF Dose Instruction: TAKE 1 TABLET BY MOUTH ONCE A DAY Rx Instructions: TAKE 1 TABLET BY MOUTH ONCE A DAY levothyroxine 25 mcg tablet See Rx Instructions .ROUTE .COMPLEX Qty: 30 2RF Dose Instruction: TAKE 1 TABLET BY MOUTH ONCE A DAY Rx Instructions: TAKE 1 TABLET BY MOUTH ONCE A DAY Renal Caps 1 mg capsule See Rx Instructions .ROUTE .COMPLEX Qty: 30 0RF Dose Instruction: TAKE 1 CAPSULE BY MOUTH ONCE A DAY Rx Instructions: TAKE 1 CAPSULE BY MOUTH ONCE A DAY fluoxetine 20 mg capsule See Rx Instructions .ROUTE .COMPLEX Qty: 30 0RF Dose Instruction: TAKE 1 CAPSULE BY MOUTH ONCE A DAY Rx Instructions: TAKE 1 CAPSULE BY MOUTH ONCE A DAY melatonin 3 mg tablet See Rx Instructions .ROUTE .COMPLEX Qty: 30 0RF Dose Instruction: TAKE 2 TABLETS BY MOUTH EVERY NIGHT AT BEDTIME NEEDED FOR SLEEP Rx Instructions: TAKE 2 TABLETS BY MOUTH EVERY NIGHT AT BEDTIME NEEDED FOR SLEEP sodium zirconium cyclosilicate 10 GM powder in packet 10 gm PO DAILY 30 Days Qty: 30 0RF Referrals Follow up/Referrals: Ced Al MD [Primary Care Provider] - See instructions Activity Restrictions/Add. Instructions Additional Instructions/Restrictions: At this time was felt you are safe to be discharged home. If new or worsening symptoms please not hesitate to return to the emergency department. Please follow-up in 10 days for evaluation of removal of your zachary. Clinical Impressions Clinical Impression: Laceration of scalp, Fall Discharge ED Provider: Simeon Saldivar General Adult HPI General Chief complaint: Fall Stated complaint: fall Time Seen by Provider: 04/22/22 15:45 Mode of Arrival: EMS Limitations: No Limitations Description of Symptoms (Recalled from ER Triage Doc. by RN): PT BROUGHT IN VIA EMS FOR FALL FROM STANDING WHILE MOVING A MATTRESS. PT DENIES LOC, BUT REPORTS LOC FOR UNKNOWN AMOUNT OF TIME. PT DENIES PAIN. NO BLOOD THINNERS. LACERATION TO BACK OF HEAD History of Present Illness HPI narrative: Patient is a 66-year-old male with past medical history of liver transplant who presents emergency department for evaluation of traumatic injury sustained in a fall. Patient was reportedly lifting a bed when he fell backwards tripping on a step striking the back of his head with loss of consciousness. Patient denies blood thinners. Patient currently denies headache, has an open wound over the back of his head, last tetanus 1 year ago. No other acute complaints at this time Related Data Home Medications Medication Instructions Recorded Confirmed aspirin 81 mg tablet,delayed 81 mg PO DAILY Blood thinner 01/10/21 01
--- NOTE | 2022-04-22 16:44 | PC.NURSE ---
PT REPORTS TETANUS SHOT WITHIN THE LAST 3 YEARS
[2022-04-22 16:52] VITALS: BP 167/101; PULSE 53; RESP 14; TEMP 36.4; O2SAT 99
== END 2022-04-22 16:55 | disposition home or self-care (01) ==
PROVIDERS: Emergency Provider Emergency Medicine; PCP Emergency Medicine
DX: S01.01XA Laceration without foreign body of scalp, initial encounter (principal); W19.XXXA Unspecified fall, initial encounter; Z94.4 Liver transplant status; Z86.79 Personal history of other diseases of the circulatory system; Z87.891 Personal history of nicotine dependence
CPT/HCPCS: 12002; 70450; 72125; 99285

== ENCOUNTER → 2022-05-10 11:11 | Outpatient (CLI) | payer MEDICARE, MEDICAID, SELFPAY ==
[2022-05-10 12:20] LABS: Basophils # 0.1 K/mm3 (0-0.2); Basophils % 0.9 % (0.1-2.0); Eosinophils # 0.3 K/mm3 (0.0-0.4); Eosinophils % 3.7 % (0.1-12.0); Hematocrit 33.6 % (42.0-52.0); Hemoglobin 11.7 g/dL (14.1-18.0); Lymphocytes # 1.3 K/mm3 (0.7-4.5); Lymphocytes % 18.9 % (10-50); Mean Corpuscular Hemoglobin 30.8 pg (27.0-31.2); Mean Corpuscular Volume 88.1 fl (80-94); Mean Platelet Volume 8.5 fl (7.4-10.4); Monocytes # 0.4 K/mm3 (0.1-1.0); Monocytes % 5.8 % (1.7-9.3); Neutrophils # 4.9 K/mm3 (1.8-7.8); Neutrophils % 70.6 % (37.0-80.0); Platelet Count 245 K/mm3 (142-424); Red Blood Count 3.81 M/mm3 (4.60-6.20); Red Cell Distribution Width 13.9 % (11.5-17.5)
[2022-05-10 12:39] LABS: Alanine Aminotransferase 19 U/L (12-78); Albumin Level 4.4 g/dl (3.5-5.0); Albumin/Globulin Ratio 1.9 (1.1-1.8); Alkaline Phosphatase 114 U/L (38-126); Anion Gap 12.9 mEq/L (5-15); Aspartate Amino Transferase 26 U/L (17-59); Bilirubin,Total 0.5 mg/dl (0.2-1.3); Blood Urea Nitrogen 27 mg/dl (9-20); Calcium 9.1 mg/dl (8.4-10.2); Carbon Dioxide 23 mmol/L (22.0-30.0); Chloride 110 mmol/L (98-107); Estimated Glomerular Filt Rate 40 ml/min (>60); GFR (African American) 49 ML/MIN (>60); Gamma Glutamyl Transpeptidase 21 U/L (15-73); Globulin 2.3 g/dL (1.3-3.2); Glucose 107 mg/dl (74-100); Magnesium 1.7 mg/dl (1.6-2.3); Potassium 4.9 mmoL/L (3.5-5.1); Sodium 141 mmol/L (136-145); Total Protein,Serum 6.7 g/dl (6.3-8.2)
== END ==
PROVIDERS: PCP Emergency Medicine; Visit Provider Transplant Surgery
DX: B18.2 Chronic viral hepatitis C (principal); Z94.4 Liver transplant status; Z79.899 Other long term (current) drug therapy
CPT/HCPCS: 36415; 80053; 82977; 83735; 85025; 87522

== ENCOUNTER → 2022-06-14 09:15 | Outpatient (CLI) | payer MEDICARE, MEDICAID, SELFPAY ==
[2022-06-14 10:13] LABS: Hematocrit 34.7 % (42.0-52.0); Hemoglobin 11.4 g/dL (14.1-18.0); Mean Corpuscular HGB Conc 32.9 g/dL (31.8-35.4); Platelet Count 214 K/mm3 (142-424); Red Blood Count 3.82 M/mm3 (4.60-6.20); Red Cell Distribution Width 15.2 % (11.5-17.5); White Blood Count 7.3 K/mm3 (4.8-10.8)
[2022-06-14 10:26] LABS: Sodium 137 mmol/L (136-145)
[2022-06-14 10:29] LABS: Alanine Aminotransferase 17 U/L (12-78); Albumin Level 4.1 g/dl (3.5-5.0); Albumin/Globulin Ratio 1.9 (1.1-1.8); Alkaline Phosphatase 109 U/L (38-126); Anion Gap 14.2 mEq/L (5-15); Aspartate Amino Transferase 23 U/L (17-59); Bilirubin,Total 0.6 mg/dl (0.2-1.3); Blood Urea Nitrogen 41 mg/dl (9-20); Calcium 8.8 mg/dl (8.4-10.2); Carbon Dioxide 17 mmol/L (22.0-30.0); Chloride 111 mmol/L (98-107); Estimated Glomerular Filt Rate 29 ml/min (>60); GFR (African American) 34 ML/MIN (>60); Gamma Glutamyl Transpeptidase 19 U/L (15-73); Globulin 2.2 g/dL (1.3-3.2); Glucose 133 mg/dl (74-100); Magnesium 1.8 mg/dl (1.6-2.3); Potassium 5.2 mmoL/L (3.5-5.1); Total Protein,Serum 6.3 g/dl (6.3-8.2)
== END ==
PROVIDERS: PCP Emergency Medicine; Visit Provider Transplant Surgery
DX: Z94.4 Liver transplant status (principal); Z79.899 Other long term (current) drug therapy
CPT/HCPCS: 36415; 80053; 82977; 83735; 85014; 85018; 85048; 85049

== ENCOUNTER → 2022-07-12 09:44 | Outpatient (CLI) | payer MEDICARE, MEDICAID, SELFPAY ==
[2022-07-12 10:19] LABS: Hematocrit 31.5 % (42.0-52.0); Hemoglobin 10.7 g/dL (14.1-18.0); Mean Corpuscular HGB Conc 34.1 g/dL (31.8-35.4); Mean Corpuscular Hemoglobin 31.2 pg (27.0-31.2); Mean Corpuscular Volume 91.5 fl (80-94); Platelet Count 175 K/mm3 (142-424); Red Blood Count 3.44 M/mm3 (4.60-6.20); Red Cell Distribution Width 13.8 % (11.5-17.5); White Blood Count 6.4 K/mm3 (4.8-10.8)
[2022-07-12 11:32] LABS: Chloride 112 mmol/L (98-107); Sodium 139 mmol/L (136-145)
[2022-07-12 11:33] LABS: Potassium 5.9 mmoL/L (3.5-5.1)
[2022-07-12 11:35] LABS: Alanine Aminotransferase 16 U/L (12-78); Albumin Level 3.8 g/dl (3.5-5.0); Albumin/Globulin Ratio 1.8 (1.1-1.8); Alkaline Phosphatase 104 U/L (38-126); Anion Gap 12.9 mEq/L (5-15); Aspartate Amino Transferase 25 U/L (17-59); Bilirubin,Total 0.5 mg/dl (0.2-1.3); Blood Urea Nitrogen 40 mg/dl (9-20); Calcium 8.5 mg/dl (8.4-10.2); Carbon Dioxide 20 mmol/L (22.0-30.0); Estimated Glomerular Filt Rate 32 ml/min (>60); GFR (African American) 38 ML/MIN (>60); Globulin 2.1 g/dL (1.3-3.2); Glucose 90 mg/dl (74-100); Magnesium 1.8 mg/dl (1.6-2.3); Total Protein,Serum 5.9 g/dl (6.3-8.2)
[2022-07-12 18:27] LABS: Gamma Glutamyl Transpeptidase 19 U/L (15-73)
[2022-07-22 17:07] LABS: Cyclosporine 114
== END ==
PROVIDERS: PCP Emergency Medicine; Visit Provider Transplant Surgery
DX: Z94.4 Liver transplant status (principal); B18.2 Chronic viral hepatitis C; Z79.899 Other long term (current) drug therapy
CPT/HCPCS: 36415; 80053; 80158; 82977; 83735; 85014; 85018; 85048; 85049

== ENCOUNTER → 2022-08-11 08:56 | Outpatient (CLI) | payer MEDICARE, MEDICAID, SELFPAY ==
--- NOTE | 2022-08-11 08:57 | XR_ITS ---
FINAL REPORT CLINICAL HISTORY: hip pain FINDINGS: Right hip Three views were obtained. There is no acute fracture or dislocation. The joint spaces appear normal. No soft tissue abnormality is identified. IMPRESSION: No acute process. Reviewed, Interpreted and Dictated by Bakari Perez MD Transcribed by Carmelina Martins Authenticated and [facility]
--- NOTE | 2022-08-11 08:57 | XR_ITS ---
FINAL REPORT CLINICAL HISTORY: back pain FINDINGS: LUMBAR SPINE Five views demonstrate no acute fracture. The disc spaces are well preserved. There is mild to moderate anterior osteophyte formation from L3-4 through L5-S1. There is no malalignment. There is a 7 mm density in the lower pole of the right kidney consistent with a stone. IMPRESSION: Right renal stone. Degenerative changes as above. Reviewed, Interpreted and Dictated by Bakari Perez MD Transcribed by Carmelina Martins Authenticated and [facility]
--- NOTE | 2022-08-11 09:00 | XR_ITS ---
FINAL REPORT TECHNIQUE: Bone densitometry calculations of the lumbar spine and left hip were obtained. CLINICAL HISTORY: . osteoporosis FINDINGS: Using L1-4, the bone mineral density of the spine is 0.901 g/cm2, corresponding to T-score of -1.7. Using the left hip, the bone mineral density of the femoral neck is 0.625 g/cm2, corresponding to a T-score of -2.2. Using the right hip, the bone mineral density of the femoral neck is 0.663 g/cm2, corresponding to a T-score of -2.0. NOTE: T-score: Standard deviation compared with peak bone mass of young adult mean. *Following the recommendations of the International Society of Bone densitometry, classification of hip BMD is based on the lower of two T-scores; total hip or femoral neck. IMPRESSION: Diminished bone mineral density consistent with osteopenia. FRAX data reports major osteoporotic fracture of 7.4% and hip fracture of 1.6%. Reviewed, Interpreted and Dictated by Bakari Perez MD Transcribed by Carmelina Martins Authenticated and [facility]
== END ==
PROVIDERS: PCP Emergency Medicine; Visit Provider Internal Medicine Nephrology
DX: M54.9 Dorsalgia, unspecified (principal); M25.551 Pain in right hip; N25.0 Renal osteodystrophy; M81.0 Age-related osteoporosis without current pathological fracture
CPT/HCPCS: 72110; 73502; 77080

== ENCOUNTER 2022-09-08 09:39 | Emergency (ER) | payer MEDICARE, MEDICAID, SELFPAY ==
[2022-09-08] VITALS (7 sets, daily range): BP systolic 124–152; BP diastolic 70–95; PULSE 47–62; RESP 18–19; TEMP 36.6–36.7; O2SAT 99–100; BMI 27.1
--- NOTE | 2022-09-08 09:53 | HMH.EDGENADL ---
Discharge Plan Disposition Patient Disposition: Home, Self-Care Prescriptions Prescriptions: No Action furosemide [Lasix] 20 mg tablet 20 mg PO DAILY Qty: 30 0RF hydrocodone-acetaminophen 5-325 mg tablet 1 tab PO aspirin [Adult Aspirin Regimen] 81 mg tablet,delayed release (DR/EC) 81 mg PO DAILY mycophenolate mofetil 500 mg tablet 500 mg PO BID magnesium oxide 400 mg (241.3 mg magnesium) tablet 400 mg PO BID cyanocobalamin (vitamin B-12) 1,000 mcg tablet See Rx Instructions .ROUTE .COMPLEX Qty: 90 0RF Dose Instruction: TAKE 1 TABLET BY MOUTH ONCE A DAY Rx Instructions: TAKE 1 TABLET BY MOUTH ONCE A DAY Renal Caps 1 mg capsule See Rx Instructions .ROUTE .COMPLEX Qty: 30 0RF Dose Instruction: TAKE 1 CAPSULE BY MOUTH ONCE A DAY Rx Instructions: TAKE 1 CAPSULE BY MOUTH ONCE A DAY melatonin 3 mg tablet See Rx Instructions .ROUTE .COMPLEX Qty: 30 0RF Dose Instruction: TAKE 2 TABLETS BY MOUTH EVERY NIGHT AT BEDTIME NEEDED FOR SLEEP Rx Instructions: TAKE 2 TABLETS BY MOUTH EVERY NIGHT AT BEDTIME NEEDED FOR SLEEP cyclosporine 100 mg/mL solution 150 mg PO Q12H Qty: 50 0RF fluoxetine 20 mg capsule 20 mg PO DAILY Qty: 30 2RF propranolol 10 mg tablet 10 mg PO BID Qty: 60 2RF levothyroxine 25 mcg tablet See Rx Instructions .ROUTE .COMPLEX Qty: 30 2RF Dose Instruction: TAKE 1 TABLET BY MOUTH ONCE A DAY Rx Instructions: TAKE 1 TABLET BY MOUTH ONCE A DAY oxycodone 5 mg tablet 5 mg PO BID 10 Days Qty: 20 0RF sodium zirconium cyclosilicate 10 GM powder in packet 10 gm PO DAILY 30 Days Qty: 30 0RF Referrals Follow up/Referrals: Ced Al MD [Primary Care Provider] - See instructions Activity Restrictions/Add. Instructions Additional Instructions/Restrictions: Your work-up did not reveal any bacterial illness or intra-abdominal pathology. Your abdominal tenderness and strain with coughing is likely musculoskeletal wall strain. Please follow-up with Dr. Al as your creatinine has worsened from 2.1-2.7 this will need to be closely monitored. No antibiotics are indicated currently please return to the emergency department with high fevers or worsening symptoms. Clinical Impressions Clinical Impression: Bronchitis, Abdominal wall strain Discharge ED Provider: Dao Mueller General Adult HPI General Chief complaint: Shortness of Breath/Dyspnea Stated complaint: soa Time Seen by Provider: 09/08/22 09:53 History of Present Illness HPI narrative: Patient is a 66-year-old male presenting today with multiple complaints including shortness of breath cough and abdominal pain. States that he is not short of breath or having any pain at rest however he has been coughing significantly for the past week and states that he has had a cold and that while coughing he has had significant pain and tenderness in his mid left side of his abdomen. He does state that his abdomen hurts to the touch even when he is not coughing. Denies any changes in bowel movement specifically any diarrhea or constipation no changes in urination including hematuria frequency urgency or dysuria. No fevers or chills. No chest pain or exertional symptoms. No lower extremity edema hemoptysis or history of PTE or DVT. He was at Dr. Al's office today who sent him to the ED for further evaluation. Of note patient had a liver transplant 16 months ago has not had any issues with taking his immunosuppressant medications and states he has not had any rejection that he is aware of. Related Data Home Medications Medication Instructions Recorded Confirmed aspirin 81 mg tablet,delayed 81 mg PO DAILY Blood thinner 01/10/21 09/08/22 release (Adult Aspirin Regimen) mycophenolate mofetil 500 mg tablet 500 mg PO BID transplant 06/15/21 09/08/22 magnesium oxide 400 mg (241.3 mg 400 mg PO BID 03/17/22 09/08/22 magnesium) tablet
--- NOTE | 2022-09-08 09:56 | PC.NURSE ---
Dr. Mueller at BS for pt eval
--- NOTE | 2022-09-08 10:02 | XR_ITS ---
FINAL REPORT TECHNIQUE: Single view chest CLINICAL HISTORY: dyspnea COMPARISON: 10/03/2020 FINDINGS: A single view of the chest was obtained. The heart and mediastinum are within normal limits. The lungs are underinflated with scarring at the bases. Lungs are otherwise clear. There is no pneumothorax. Osseous structures are unremarkable. IMPRESSION: No acute cardiopulmonary process. Reviewed, Interpreted and Dictated by Bakari Perez MD Transcribed by Ora Maxwell Authenticated and [facility]
--- NOTE | 2022-09-08 10:02 | CT_ITS ---
FINAL REPORT TECHNIQUE: Axial images through the abdomen and pelvis were performed without contrast.This study was performed with techniques to keep radiation doses as low as reasonably achievable, (ALARA). Individualized dose reduction techniques using automated exposure control or adjustment of mA and/or kV according to the patient's size were employed. CLINICAL HISTORY: left mid abd pain and tenderness COMPARISON: 10/03/2020 FINDINGS: ABDOMEN: There are a few, small ill-defined nodules in the lung bases with the most conspicuous, at the right lung base measuring 9 mm. This is best seen on image 4, series 7. Nodules are indeterminate. The heart size is normal. There are postoperative changes from interval liver transplant. Previously seen splenomegaly has resolved. Spleen now measures 12 cm in greatest dimension. There is a stable, right adrenal mass which demonstrates fat attenuation and calcification, likely related to myelolipoma. The aorta is normal in caliber. There is no significant free fluid or adenopathy. There is a stable, nonobstructing stone in the lower pole the right kidney measuring 7 mm. There is no hydronephrosis. PELVIS: The appendix is not identified. There are scattered diverticula of the descending and sigmoid colon. The urinary bladder is incompletely distended. There is no significant free fluid or adenopathy. IMPRESSION: Postoperative changes of interval liver transplant. Ill-defined densities at the right lung base measuring up to 9 mm, favor inflammatory. However, recommend follow-up chest CT in 3-4 weeks. Stable right adrenal myelolipoma. Nonobstructing right renal stone. Reviewed, Interpreted and Dictated by Bakari Perez MD Transcribed by Ora Maxwell Authenticated and [facility]
--- NOTE | 2022-09-08 10:08 | ECG_ITS ---
APPROVED REPORT Exam: Resting ECG HR:47 bpm ECG Measurements Heart Rate 47 AXES NM 177 P 47 QRSd 91 QRS 18 QT 411 T 54 QTc 374 Conclusion SINUS BRADYCARDIA BORDERLINE ECG UNCONFIRMED REPORT Electronically signed by : Octaviano Tapia MD 09/09/2022 07:02:23
--- NOTE | 2022-09-08 10:11 | PC.NURSE ---
pt ambulatory to restroom
[2022-09-08 10:13] LABS: Coronavirus 19, PCR Not Detected (NotDetected); Influenza A, PCR Not Detected (NotDetected); Influenza B, PCR Not Detected (NotDetected)
[2022-09-08 10:19] LABS: Basophils % 0.3 % (0.1-2.0); Eosinophils # 0.2 K/mm3 (0.0-0.4); Eosinophils % 2.2 % (0.1-12.0); Hematocrit 32.4 % (42.0-52.0); Hemoglobin 10.6 g/dL (14.1-18.0); Lymphocytes # 1.3 K/mm3 (0.7-4.5); Lymphocytes % 11.7 % (10-50); Mean Corpuscular HGB Conc 32.7 g/dL (31.8-35.4); Mean Corpuscular Hemoglobin 29.4 pg (27.0-31.2); Mean Corpuscular Volume 89.8 fl (80-94); Mean Platelet Volume 9.3 fl (7.4-10.4); Monocytes # 0.7 K/mm3 (0.1-1.0); Monocytes % 6.3 % (1.7-9.3); Neutrophils # 8.8 K/mm3 (1.8-7.8); Neutrophils % 79.7 % (37.0-80.0); Platelet Count 206 K/mm3 (142-424); Red Blood Count 3.61 M/mm3 (4.60-6.20); Red Cell Distribution Width 13.7 % (11.5-17.5)
--- NOTE | 2022-09-08 10:20 | PC.NURSE ---
pt to radiology via wheelchair at this time
[2022-09-08 10:22] LABS: Alanine Aminotransferase 25 U/L (12-78); Albumin Level 3.8 g/dl (3.5-5.0); Albumin/Globulin Ratio 1.4 (1.1-1.8); Alkaline Phosphatase 146 U/L (38-126); Anion Gap 16.9 mEq/L (5-15); Aspartate Amino Transferase 33 U/L (17-59); Bilirubin,Total 0.7 mg/dl (0.2-1.3); Blood Urea Nitrogen 35 mg/dl (9-20); Calcium 8.2 mg/dl (8.4-10.2); Carbon Dioxide 18 mmol/L (22.0-30.0); Chloride 110 mmol/L (98-107); Creatinine Clearance Estimated 33 mL/min (50-200); Estimated Glomerular Filt Rate 24 ml/min (>60); GFR (African American) 29 ML/MIN (>60); Globulin 2.8 g/dL (1.3-3.2); Glucose 126 mg/dl (74-100); Lipase 130 U/L (23-300); Potassium 3.9 mmoL/L (3.5-5.1); Sodium 141 mmol/L (136-145); Total Protein,Serum 6.6 g/dl (6.3-8.2)
[2022-09-08 10:25] LABS: Microscopic, Urine URINE MICROSCOPIC (MICROSCOPIC)
[2022-09-08 10:26] LABS: Activated Partial Thrombo Time 30.2 seconds (22.8-30.6); INR 1.07 (0.9-1.1); Prothrombin Time 11.5 seconds (10.1-12.5)
[2022-09-08 10:26] LABS: Appearance,Urine CLEAR (Clear); Bilirubin,Urine Negative (Negative); Blood, Urine Negative (Negative); Color,Urine YELLOW (Yellow); Glucose,Urine (UA) Negative (Negative); Ketones,Urine Negative (Negative); Leukocyte Esterase,Urine Negative (Negative); Nitrate,Urine Negative (Negative); Protein,Urine 1+ (Negative); Specific Gravity, Urine >= 1.030 (1.005-1.030)
[2022-09-08 10:35] LABS: NT Pro Brain Natriuretic Pep. 559 pg/mL (0-125)
--- NOTE | 2022-09-08 10:36 | PC.NURSE ---
rounded on patient; pt lying on ED stretcher with spouse at BS. no other needs at this time, call merida within reach.
[2022-09-08 10:38] LABS: Troponin I < 0.01 ng/ml (0.00-0.034)
[2022-09-08 10:38] LABS: Squamous Epithelial Cell,Urine Occasional #/hpf (0-5)
--- NOTE | 2022-09-08 11:07 | PC.NURSE ---
Rounded on patient; pt aware that we are waiting on test results, no other needs at this time. family at BS, call merida within reach
== END 2022-09-08 12:21 | disposition home or self-care (01) ==
PROVIDERS: Emergency Provider Student in an Organized Health Care Education/Training Program; PCP Emergency Medicine
DX: S39.011A Strain of muscle, fascia and tendon of abdomen, initial encounter (principal); J40 Bronchitis, not specified as acute or chronic; I20.9 Angina pectoris, unspecified; X58.XXXA Exposure to other specified factors, initial encounter; Z87.891 Personal history of nicotine dependence
CPT/HCPCS: 71045; 74176; 80053; 81001; 83690; 83880; 84484; 85025; 85610; 85730; 87635; 87636; 93005; 96361; 96374; 96375; 99285; C9803; J2405; U0003; U0005

== ENCOUNTER → 2022-10-06 09:35 | Outpatient (CLI) | payer MEDICARE, MEDICAID, SELFPAY ==
[2022-10-06 10:07] LABS: Hematocrit 33.5 % (42.0-52.0); Hemoglobin 10.8 g/dL (14.1-18.0); Mean Corpuscular HGB Conc 32.3 g/dL (31.8-35.4); Mean Corpuscular Volume 89.6 fl (80-94); Platelet Count 170 K/mm3 (142-424); Red Blood Count 3.74 M/mm3 (4.60-6.20); Red Cell Distribution Width 13.8 % (11.5-17.5); White Blood Count 7.5 K/mm3 (4.8-10.8)
[2022-10-06 10:31] LABS: Alanine Aminotransferase 17 U/L (12-78); Albumin Level 3.9 g/dl (3.5-5.0); Albumin/Globulin Ratio 1.6 (1.1-1.8); Alkaline Phosphatase 120 U/L (38-126); Anion Gap 14.9 mEq/L (5-15); Aspartate Amino Transferase 21 U/L (17-59); Bilirubin,Total 0.6 mg/dl (0.2-1.3); Blood Urea Nitrogen 33 mg/dl (9-20); Calcium 8.6 mg/dl (8.4-10.2); Carbon Dioxide 21 mmol/L (22.0-30.0); Chloride 110 mmol/L (98-107); Estimated Glomerular Filt Rate 30 ml/min (>60); GFR (African American) 36 ML/MIN (>60); Gamma Glutamyl Transpeptidase 19 U/L (15-73); Globulin 2.4 g/dL (1.3-3.2); Glucose 101 mg/dl (74-100); Magnesium 1.6 mg/dl (1.6-2.3); Potassium 4.9 mmoL/L (3.5-5.1); Sodium 141 mmol/L (136-145); Total Protein,Serum 6.3 g/dl (6.3-8.2)
[2022-11-20 09:39] LABS: Cyclosporine 466
[2022-11-20 09:40] LABS: Tacrolimus (FK506), Blood <0.5
== END ==
PROVIDERS: PCP Emergency Medicine; Visit Provider Transplant Surgery
DX: Z94.4 Liver transplant status (principal)
CPT/HCPCS: 36415; 80053; 80158; 80197; 82977; 83735; 85014; 85018; 85048; 85049

== ENCOUNTER → 2022-10-23 10:42 | Outpatient (POV) | payer MEDICARE, MEDICAID, SELFPAY | PROVIDERS: Visit Provider Nurse Practitioner | DX: Z00.00 Encounter for general adult medical examination without abnormal findings (principal) ==

== ENCOUNTER → 2022-11-10 08:41 | Outpatient (CLI) | payer MEDICARE, MEDICAID, SELFPAY ==
[2022-11-10 09:05] LABS: Basophils % 0.5 % (0.1-2.0); Eosinophils # 0.2 K/mm3 (0.0-0.4); Eosinophils % 3.5 % (0.1-12.0); Hematocrit 34.6 % (42.0-52.0); Hemoglobin 11.2 g/dL (14.1-18.0); Lymphocytes # 1.2 K/mm3 (0.7-4.5); Lymphocytes % 18.1 % (10-50); Mean Corpuscular HGB Conc 32.4 g/dL (31.8-35.4); Mean Corpuscular Hemoglobin 28.7 pg (27.0-31.2); Mean Corpuscular Volume 88.6 fl (80-94); Mean Platelet Volume 9.8 fl (7.4-10.4); Monocytes # 0.4 K/mm3 (0.1-1.0); Monocytes % 5.9 % (1.7-9.3); Neutrophils # 4.8 K/mm3 (1.8-7.8); Platelet Count 179 K/mm3 (142-424); Red Blood Count 3.91 M/mm3 (4.60-6.20); Red Cell Distribution Width 14.2 % (11.5-17.5); White Blood Count 6.6 K/mm3 (4.8-10.8)
[2022-11-10 10:08] LABS: Chloride 116 mmol/L (98-107)
[2022-11-10 10:09] LABS: Potassium 5.1 mmoL/L (3.5-5.1); Sodium 142 mmol/L (136-145)
[2022-11-10 10:11] LABS: Alanine Aminotransferase 16 U/L (12-78); Alkaline Phosphatase 112 U/L (38-126); Anion Gap 13.1 mEq/L (5-15); Aspartate Amino Transferase 20 U/L (17-59); Bilirubin,Total 0.6 mg/dl (0.2-1.3); Blood Urea Nitrogen 45 mg/dl (9-20); Carbon Dioxide 18 mmol/L (22.0-30.0); Estimated Glomerular Filt Rate 24 ml/min (>60); GFR (African American) 29 ML/MIN (>60)
[2022-11-10 10:12] LABS: Albumin Level 3.9 g/dl (3.5-5.0); Albumin/Globulin Ratio 1.8 (1.1-1.8); Calcium 9.2 mg/dl (8.4-10.2); Globulin 2.2 g/dL (1.3-3.2); Glucose 97 mg/dl (74-100); Magnesium 1.7 mg/dl (1.6-2.3); Total Protein,Serum 6.1 g/dl (6.3-8.2)
[2022-11-10 11:12] LABS: Gamma Glutamyl Transpeptidase 15 U/L (15-73)
[2022-11-25 11:50] LABS: Cyclosporine 430
== END ==
PROVIDERS: PCP Emergency Medicine; Visit Provider Transplant Surgery
DX: Z94.4 Liver transplant status (principal)
CPT/HCPCS: 36415; 80053; 80158; 82977; 83735; 85025

== ENCOUNTER → 2022-11-13 08:55 | Outpatient (CLI) | payer MEDICARE, MEDICAID, SELFPAY ==
--- NOTE | 2022-11-13 09:11 | XR_ITS ---
FINAL REPORT TECHNIQUE: Bone mineral density was calculated of the lumbar spine and hip. CLINICAL HISTORY: osteoporosis FINDINGS: Using L1-4, the bone mineral density of the spine is 0.930 g/cm2, corresponding to T-score of -1.5. Using the left hip, the bone mineral density of the femoral neck is 0.666 g/cm2, corresponding to a T-score of -1.9. Using the right hip, the bone mineral density of the femoral neck is 0.646 g/cm2, corresponding to a T-score of -2.1. NOTE: T-score: Standard deviation compared with peak bone mass of young adult mean. *Following the recommendations of the International Society of Bone densitometry, classification of hip BMD is based on the lower of two T-scores; total hip or femoral neck. IMPRESSION: Diminished bone mineral density consistent with low bone density. FRAX data reports fracture risk of 8.2% major osteoporotic fracture and 2% hip fracture. Reviewed, Interpreted and Dictated by Ashkan Hines III, MD Transcribed by Carmelina Martins Authenticated and [facility]
--- NOTE | 2022-11-13 09:25 | CA_ITS ---
APPROVED REPORT EXAM: Comprehensive 2D, Doppler, and color-flow Echocardiogram Dowel Maker: Kathy Mendez RVT Ht: 5 ft 11 in Wt: 197lbs BSA: 2.10 BP: 136/82 mmHg Indications: EDEMA,HTN,EX SMOKER,PALPS,FATIGUE,SOA,HX LIVER TRANSPLANT,HLD 2D Dimensions LVOT 2.11 cm (M/F) 1.5-2.5 LA Volume 60.80 mL LA Volume Index 28.95 mL/m2 (M/F) 16-34 M-Mode Dimensions RVDd 2.77 cm (0.9-2.6) LA Diam 4.26 cm (1.9-4.0) LVDd 5.18 cm (3.5-5.7) Ao Diam 3.37 cm (2.0-3.7) LVDs 3.62 cm (3.5-5.7) IVSd 0.52 cm (0.6-1.1) PWd 0.60 cm (0.6-1.1) EF (Teich) 57.00% FS 30.10% EDV (Teich) 128.40 mL TAPSE 2.18 (<1.7) ESV (Teich) 55.20 mL LV Diastology E Decel Time 150.00 (160-240 msec) E/A Ratio 1.0 MED E' 7.00 (< 7 cm/sec) E'/MED E' Ratio 10.41 (>14) LAT E' 6.00 (<10 cm/sec) E/LAT E' Ratio 12.15 (>14) Aortic Valve AO Peak GR. 6.00 mmHg Mitral Valve MV E Max Jared. 73.00 (40-130 cm/s) MV A Velocity 73.00 (40-130 cm/s) E/A Ratio 1.01 MV Decel. Time 150.00 (160-240 ms) MV PHT 44.00 ms Pulmonary Valve PV Peak Velocity 85.00 (50-150 cm/s) Tricuspid Valve TR P. Velocity 288.00 cm/s RAP Estimate 10.00 mmHg RVSP 43.30 mmHg Left Ventricle The left ventricle is normal size. The left ventricular systolic function is normal. The left ventricular ejection fraction is within the normal range. There is proximal septal thickening. There is no evidence of LVOT obstruction at rest. There is normal LV segmental wall motion. The left ventricular diastolic function is normal. LVEF is 60%. Right Ventricle The right ventricle is mildly dilated. The right ventricular systolic function is normal. There is increased RV wall thickness. Atria The left atrium size is normal. The right atrium size is normal. There is no Doppler evidence of interatrial shunt. Aortic Valve The aortic valve opens well. There is no aortic valvular stenosis. No aortic regurgitation is present. Mitral Valve The mitral valve is normal in structure. No evidence of mitral valve stenosis. Mild mitral regurgitation. Tricuspid Valve The tricuspid valve leaflets are thin and pliable. Trace tricuspid regurgitation. There is insufficient TR jet to estimate RVSP. Pulmonic Valve The pulmonary valve is normal in structure. Trace pulmonic regurgitation. Great Vessels The aortic root is normal in size. IVC is normal in size and collapses >50% with inspiration. Pericardium There is no pericardial effusion. Other Information Study Quality: Adequate Conclusion Normal biventricular systolic function. Proximal septal LV wall thickness. Mild RV dilation. No significant valvular disease. Electronically signed by : Jessica Covington, 11/13/2022 17:11:09
--- NOTE | 2022-11-13 09:25 | CA_ITS ---
FINAL REPORT TECHNIQUE: Color Doppler, duplex Doppler and compression sonography of the left lower extremity deep venous systems was performed. CLINICAL HISTORY: ex smoker, fatigue, HTN, edema, hyperlipidemia, CHF, cirrhosis, liver transplant 2020, LLE edema since transplant. FINDINGS: There is no evidence of deep venous thrombosis from the level of the groin to the calf. The veins are patent and compressible. IMPRESSION: No evidence of deep venous thrombosis left lower extremity. Reviewed, Interpreted and Dictated by Ashkan Hines III, MD Transcribed by Carmelina Martins Authenticated and [facility]
== END ==
LOC: RAD 08:56
PROVIDERS: PCP Emergency Medicine; Visit Provider Nurse Practitioner
DX: R60.0 Localized edema; M79.605 Pain in left leg; N25.0 Renal osteodystrophy; N18.32 Chronic kidney disease, stage 3b; M81.0 Age-related osteoporosis without current pathological fracture; Z94.4 Liver transplant status
CPT/HCPCS: 77080; 93306; 93971

== ENCOUNTER → 2022-11-29 08:33 | Outpatient (CLI) | payer MEDICARE, MEDICAID, SELFPAY ==
[2022-11-29 08:59] LABS: Basophils % 0.3 % (0.1-2.0); Eosinophils # 0.3 K/mm3 (0.0-0.4); Eosinophils % 4.7 % (0.1-12.0); Hematocrit 34.6 % (42.0-52.0); Hemoglobin 11.3 g/dL (14.1-18.0); Lymphocytes # 1.1 K/mm3 (0.7-4.5); Lymphocytes % 15.7 % (10-50); Mean Corpuscular HGB Conc 32.7 g/dL (31.8-35.4); Mean Corpuscular Hemoglobin 29.6 pg (27.0-31.2); Mean Corpuscular Volume 90.6 fl (80-94); Mean Platelet Volume 9.2 fl (7.4-10.4); Monocytes # 0.4 K/mm3 (0.1-1.0); Monocytes % 5.3 % (1.7-9.3); Platelet Count 182 K/mm3 (142-424); Red Blood Count 3.82 M/mm3 (4.60-6.20); Red Cell Distribution Width 14.1 % (11.5-17.5); White Blood Count 6.7 K/mm3 (4.8-10.8)
[2022-11-29 09:34] LABS: Chloride 112 mmol/L (98-107)
[2022-11-29 09:35] LABS: Potassium 4.7 mmoL/L (3.5-5.1); Sodium 142 mmol/L (136-145)
[2022-11-29 09:37] LABS: Alanine Aminotransferase 16 U/L (12-78); Aspartate Amino Transferase 20 U/L (17-59); Blood Urea Nitrogen 30 mg/dl (9-20); Estimated Glomerular Filt Rate 32 ml/min (>60); GFR (African American) 38 ML/MIN (>60)
[2022-11-29 09:38] LABS: Albumin Level 3.5 g/dl (3.5-5.0); Albumin/Globulin Ratio 1.6 (1.1-1.8); Alkaline Phosphatase 109 U/L (38-126); Anion Gap 12.7 mEq/L (5-15); Bilirubin,Total 0.4 mg/dl (0.2-1.3); Carbon Dioxide 22 mmol/L (22.0-30.0); Globulin 2.2 g/dL (1.3-3.2); Glucose 100 mg/dl (74-100); Magnesium 1.6 mg/dl (1.6-2.3); Total Protein,Serum 5.7 g/dl (6.3-8.2)
[2022-11-29 12:23] LABS: Gamma Glutamyl Transpeptidase 15 U/L (15-73)
[2022-12-03 11:18] LABS: Cyclosporine 66
== END ==
PROVIDERS: PCP Emergency Medicine; Visit Provider Transplant Surgery
DX: Z94.4 Liver transplant status (principal)
CPT/HCPCS: 36415; 80053; 80158; 82977; 83735; 85025

== ENCOUNTER → 2022-12-06 15:10 | Outpatient (CLI) | payer MEDICARE, MEDICAID, SELFPAY ==
--- NOTE | 2022-12-06 15:15 | MR_ITS ---
FINAL REPORT CLINICAL HISTORY: back pain with leg pain and swelling in left leg COMPARISON: None FINDINGS: Multiplanar MR imaging of the lumbar spine was performed without contrast. On the sagittal T2-weighted images, there is abnormal decreased signal throughout the lumbar discs. The vertebrae are of normal height. The vertebral alignment is normal. L1-2: There is no significant canal stenosis or neural foraminal narrowing. L2-3: A small annular bulge is present which produces mild left neural foraminal narrowing. L3-4: There is a mild annular disc bulge with mild to moderate bilateral neural foraminal narrowing. L4-5: There is a moderate annular bulge present which produces moderate canal narrowing and mild bilateral neural foraminal narrowing. L5-S1: There is a left posterolateral disc protrusion which produces mild right and moderate to severe left neural foraminal narrowing. IMPRESSION: Multilevel lumbar disc disease as described, most prominent at the L4-5 level with bilateral neuroforaminal narrowing and moderate canal stenosis, and at the L5-S1 level with severe left neural foraminal narrowing. Reviewed, Interpreted and Dictated by Bakari Perez MD Transcribed by Amy Lopez Authenticated and [facility]
== END ==
LOC: RAD 15:12
PROVIDERS: PCP Emergency Medicine; Visit Provider Emergency Medicine
DX: M54.9 Dorsalgia, unspecified (principal); M54.50 Low back pain, unspecified
CPT/HCPCS: 72148; 76376

== ENCOUNTER → 2022-12-22 11:00 | Outpatient (CLI) | payer MEDICARE, MEDICAID, SELFPAY ==
[2022-12-22 14:08] LABS: Amphetamine/Metha Screen,Urine Negative ng/ml (<1000)
[2022-12-22 14:09] LABS: Barbiturates Screen,Urine Negative ng/ml (<200); Benzodiazepines Screen,Urine Negative ng/ml (<200)
[2022-12-22 14:10] LABS: Cannabinoid Screen,Urine Negative ng/ml (<50); Cocaine Screen,Urine Negative ng/ml (<300)
[2022-12-22 14:11] LABS: Methadone Screen,Urine Negative ng/ml (<300)
[2022-12-22 14:12] LABS: Opiate Screen,Urine Negative ng/ml (<300); Phencyclidine Screen,Urine Negative ng/ml (<25)
== END ==
PROVIDERS: PCP Emergency Medicine; Visit Provider Emergency Medicine
DX: Z79.899 Other long term (current) drug therapy (principal)
CPT/HCPCS: 80305

== ENCOUNTER → 2022-12-28 12:49 | Outpatient (CLI) | payer MEDICARE, MEDICAID, SELFPAY ==
--- NOTE | 2022-12-28 | CA_ITS ---
APPROVED REPORT Exam: Pharmacologic Technologist: Alexandra Tatum, Ht: 5 ft 11 in Wt: 204 lbs BSA: 2.13 m2 HR: 53 bpm BP: 190/94 mmHg Rhythm: SB Medical History Medical History: HTN Medications: Levothyroxine,,,,, Aspirin,,,,, Losartan,,,,, Atorvastatin,,,,, Carvedilol,,,,, DOxazosin,,,,, Magnesium OXIDE,,,,, ONdansetron,,,,, Alendronate,,,,, Cyclosporine,,,,, Calcium CaRBONATE,,,,, Furosemide,,,,, Allergies: No known drug allergies Cardiac Risk Factors: HTN, Smoking Stress Test Details Test: LEXISCAN HR Resting HR: 60 bpm Max Heart Rate (APMHR): 152 bpm Max HR Achieved: 87 bpm Target HR (85% APMHR): 129 bpm % of APMHR: 57 Recovery HR: 52 bpm BP Resting BP: 190/94 mmHg Max BP: 193/100 mmHg Recovery BP: 175.0/100.0 mmHg ECG Resting ECG: SB Stress ECG: No significant ST changes Arrhythmia: None Clinical Exercise duration: 04:02 min Highest Stage Achieved: Stress ECG Conclusion PT HAD DYSPNEA NO SIGNIFICANT ST CHANGES NO ARRHYTHMIAS CONCLUSION UNREMARKABLE LEXISCAN STRESS TEST. MYOVIEW IMAGES ARE REPORTED SEPARATELY. SUPERVISING PA CALLED LUZMARIA SEALS APRN FOR ELEVATE BP, NEW ORDERS FOR BP CONTROL Test Summary REST 04:47 . . 60 . 190/ 94 . . Stage 1 . . . . . . . Myoview Injected Stage 1 01:00 . . 85 . . . . Stage 2 01:00 . . 82 . 190/ 97 . . Stage 3 01:00 . . 79 . 193/100 . . Stage 4 01:00 . . 75 . 187/104 . . Stage 4 01:02 . . 75 . 187/104 . Stop exercise at 04:02 RECOVERY 01:00 . . 64 . . . . RECOVERY 02:00 . . 74 . 187/100 . . RECOVERY 03:00 . . 78 . 187/100 . . RECOVERY 04:00 . . 57 . 187/100 . . RECOVERY 05:00 . . 58 . 187/100 . . RECOVERY 06:00 . . 63 . 187/100 . . RECOVERY 07:00 . . 55 . 187/100 . . RECOVERY 07:08 . . 73 . 187/100 . . Electronically signed by : Jessica Covington MD 01/06/2023 01:01:03
--- NOTE | 2022-12-28 12:58 | NM_ITS ---
APPROVED REPORT Exam: Nuclear Stress Test Indication: HTN, High cholesterol, Family history, SOB, Fatigue Patient Location: Outpatient Stress Tech: Alexandra Tatum ID Tech:Mireya Crabtree SAMANTHACortney RT(R)(N) Ht: 5 ft 11 in Wt: 201 lbs HR: 60 bpm BP: 190/94 mmHg BSA: 2.11 m2 TID: 1.07 BMI: 28.0 History: HTN, High cholesterol, Family history, SOB, Fatigue Procedure: Patient received 0.4 mg of intravenous Lexiscan, resting heart rate 60 bpm, resting blood pressure 190/94 mmHg, with Lexiscan maximum heart rate achieved was 87 bpm which is % of the maximum predicted heart rate and blood pressure was 193/100 mmHg. With Lexiscan, patient denied any complaint of chest pain. Cardiac Stress and Resting SPECT Images: Cardiac Stress and Resting SPECT images were obtained using technetium 99m Myoview 31.2 mCi stress and 10.38 mCi at rest. Resting and stress imaging in both supine and prone positions demonstrate a medium sized, moderate, fixed perfusion defect in the basal to mid inferior and inferior septal LV martines. There is also a medium sized, mild, fixed perfusion defect in the basal anterior LV wall. Gated imaging demonstrates normal global LV systolic function. There is mild hypokinesis of the basal inferior LV wall. LVEF is calculated at 55%. Conclusion: Medium sized, moderate, fixed perfusion defect in the basal to mid inferior and inferior septal LV martines. Medium sized, mild, fixed perfusion defect in the basal anterior LV wall. No evidence of reversible ischemia. Gated imaging demonstrates normal global LV systolic function. There is mild hypokinesis of the basal inferior LV wall. LVEF is calculated at 55%. Electronically signed by : Jessica Covington MD 01/06/2023 01:04:21
== END ==
LOC: RAD 12:50
PROVIDERS: PCP Emergency Medicine; Visit Provider Nurse Practitioner Family
DX: E66.3 Overweight (principal); I10 Essential (primary) hypertension; I20.8 Other forms of angina pectoris; I51.89 Other ill-defined heart diseases; I73.9 Peripheral vascular disease, unspecified; N18.9 Chronic kidney disease, unspecified; R06.00 Dyspnea, unspecified; R60.9 Edema, unspecified
CPT/HCPCS: 78452; 93017; A9502; J2785

== ENCOUNTER → 2023-01-03 08:40 | Outpatient (CLI) | payer MEDICARE, MEDICAID, SELFPAY ==
--- NOTE | 2023-01-03 08:43 | CA_ITS ---
FINAL REPORT CLINICAL HISTORY: HTN,HX LIVER TRANSPLANT FINDINGS: Aorta velocity: 114 cm/sec Right kidney: 11.3 cm. No evidence of hydronephrosis or mass. Right intrarenal RI: 0.78 Right renal artery velocity: 173 cm/sec. Right RAR (Renal artery-Aortic Ratio): 1.5 Left Kidney: 10.9 cm. No evidence of hydronephrosis or mass. Left intrarenal RI: 0.72 Left renal artery velocity: 154 cm/sec. Left RAR (Renal Artery-Aortic Ratio): 1.4 IMPRESSION: No evidence of significant renal artery stenosis. CT angiogram or postcontrast MR angiogram would be more sensitive for evaluation of possible renal artery stenosis. Reviewed, Interpreted and Dictated by Rachana Lemon MD Transcribed by Carmelina Martins Authenticated and [facility]
--- NOTE | 2023-01-03 09:21 | US_ITS ---
FINAL REPORT TECHNIQUE: Sonographic images were obtained of the retroperitoneum. CLINICAL HISTORY: I10 - Essential (primary) hypertension FINDINGS: The right kidney measures 10.8 cm. The left kidney measures 11.3 cm. There is no evidence of renal mass or hydronephrosis. There is bilateral renal cortical thinning. IMPRESSION: Bilateral renal cortical thinning. No renal mass or hydronephrosis. Reviewed, Interpreted and Dictated by Rachana Lemon MD Transcribed by Antonio Rabago Authenticated and . [facility]
== END ==
LOC: RT 08:40
PROVIDERS: PCP Emergency Medicine; Visit Provider Nurse Practitioner Family
DX: E66.3 Overweight (principal); I10 Essential (primary) hypertension; I51.89 Other ill-defined heart diseases; I73.9 Peripheral vascular disease, unspecified; N18.9 Chronic kidney disease, unspecified; R10.11 Right upper quadrant pain; R60.9 Edema, unspecified
CPT/HCPCS: 76770; 93976

== ENCOUNTER → 2023-01-17 08:23 | Outpatient (CLI) | payer MEDICARE, MEDICAID, SELFPAY ==
[2023-01-17 08:40] LABS: Microscopic, Urine URINE MICROSCOPIC (MICROSCOPIC)
[2023-01-17 08:57] LABS: Hematocrit 30.3 % (42.0-52.0); Hemoglobin 10.4 g/dL (14.1-18.0); Mean Corpuscular HGB Conc 34.3 g/dL (31.8-35.4); Mean Corpuscular Hemoglobin 30.8 pg (27.0-31.2); Mean Corpuscular Volume 89.7 fl (80-94); Platelet Count 165 K/mm3 (142-424); Red Blood Count 3.38 M/mm3 (4.60-6.20); Red Cell Distribution Width 13.7 % (11.5-17.5); White Blood Count 5.7 K/mm3 (4.8-10.8)
[2023-01-17 09:39] LABS: Appearance,Urine CLEAR (Clear); Bilirubin,Urine Negative (Negative); Blood, Urine Negative (Negative); Color,Urine YELLOW (Yellow); Glucose,Urine (UA) Negative (Negative); Ketones,Urine Negative (Negative); Leukocyte Esterase,Urine Negative (Negative); Nitrate,Urine Negative (Negative); Protein,Urine Negative (Negative); Specific Gravity, Urine 1.025 (1.005-1.030); Urobilinogen,Urine 0.2 EU/dl (0.2)
[2023-01-17 09:46] LABS: Albumin Level 3.9 g/dl (3.5-5.0); Anion Gap 13.2 mEq/L (5-15); Blood Urea Nitrogen 32 mg/dl (9-20); Calcium 8.6 mg/dl (8.4-10.2); Carbon Dioxide 26 mmol/L (22.0-30.0); Chloride 107 mmol/L (98-107); Estimated Glomerular Filt Rate 35 ml/min (>60); GFR (African American) 43 ML/MIN (>60); Glucose 117 mg/dl (74-100); Potassium 4.2 mmoL/L (3.5-5.1); Sodium 142 mmol/L (136-145)
[2023-01-17 09:53] LABS: Microalbumin/Creatinine Ratio 4.5
[2023-01-17 10:05] LABS: Creatinine,Urine Random 145 mg/dL (Not Estab.)
[2023-01-17 10:10] LABS: Bacteria,Urine Trace /lpf; Squamous Epithelial Cell,Urine Occasional #/hpf (0-5)
[2023-01-17 10:22] LABS: Ferritin 104 ng/ml (17.9-464)
[2023-01-17 10:33] LABS: Iron 70 ug/dL (49-181)
[2023-01-17 10:42] LABS: Total Iron Binding Capacity 283 ug/dL (261-462)
== END ==
PROVIDERS: PCP Emergency Medicine; Visit Provider Nurse Practitioner
DX: N18.32 Chronic kidney disease, stage 3b (principal); R68.89 Other general symptoms and signs; Z94.4 Liver transplant status
CPT/HCPCS: 36415; 80069; 81001; 82043; 82570; 82728; 83540; 83550; 84155; 85014; 85018; 85048; 85049

== ENCOUNTER → 2023-02-07 12:47 | Outpatient (CLI) | payer MEDICARE, MEDICAID, SELFPAY ==
--- NOTE | 2023-02-07 12:47 | MR_ITS ---
APPROVED REPORT Knitter Mechanic: CLINICAL INDICATION Proximal septal LV wall thickness, evaluate for HCM TECHNIQUE Image Acquisition: Cardiac magnetic resonance (CMR) was performed on Siemens Espree MRI 1.5T scanner. Software platform sequences were performed using the Siemens Billetto MR B19 platform. A set of three-plane, low-resolution, large [id number] localizers were initially acquired. Then axial, coronal, sagittal TrueFISP, as well as axial HASTE images, were obtained. These were followed by gated TrueFISP breathold cinematic sequences obtained in the short axis with 8 mm slices and 2 mm gaps, 2-chamber (vertical long axis), 3-chamber, 4-chamber (horizontal long axis). A bolus of contrast was injected intravenously with first-pass sequences obtained in the short axis and four-chamber planes. After approximately 10 minutes, a TI central scheduler sequence was performed to determine the optimal TI time. Using the optimized TI time, delayed contrast enhancement segmented inversion???recovery TurboFLASH sequences were obtained in the short axis, 2-chamber, 3-chamber, and 4-chamber projections. 2D-velocity phase mapping was performed. Functional parameters were calculated by offline analysis on an independent workstation ([employer], [employer]). Contrast: ProHance??? (Gadoteridol) FINDINGS See below for the full quantitative analysis report. MORPHOLOGY AND FUNCTION Left ventricle: The left ventricle is normal in size. The indexed left ventricular end-diastolic volume (LVEDVi) is 52 ml/m2 (reference range 57-105 ml/m2 in males, 56-96 ml/m2 in females). Normal left ventricular systolic function is present. There is mild increase in left ventricular wall thickness (maximum thickness 13 mm). There are no regional wall motion abnormalities noted. LVEF is calculated at 55% (reference range 57-77%). Right ventricle: The right ventricle is normal in size. The indexed right ventricular end-diastolic volume (RVEDVi) is 62 ml/m2 (reference range 61-121 ml/m2 in males, 48-112 ml/m2 in females). Normal right ventricular systolic function is present. RVEF is calculated at 64 % (reference range 52-72% in males, 51-71% in females). Atria: The left atrium is normal in size. The maximum indexed left atrial volume is 29 ml/m2 (reference range 26-52 ml/m2 in males, 27-53 ml/m2 in females). The right atrium is normal in size. The maximum indexed right atrial volume is 10 ml/m2 (reference range 18-90 ml/m2). Aorta: The diameter of the aortic annulus is normal, measuring 24 mm (coronal view reference range 21-30 mm in males, 19-27 mm in females). The diameter of the aortic sinus is normal, measuring 32 mm (coronal view reference range 25-42 mm in males, 24-36 mm in females). The diameter of the sinotubular junction is normal, measuring 29 mm (coronal view reference range 18-32 mm in males, 18-28 mm in females). The diameters of the ascending and descending thoracic aorta are normal. Main pulmonary artery: The main pulmonary artery diameter is normal. Pericardium: The pericardial thickness is normal. The pericardial thickness measures 1.7 cm (normal < 4.0 cm). There is no pericardial effusion. VALVES The valvular morphologies in the visualized sequences appear normal. There is no significant valvular stenosis or regurgitation of the mitral, aortic, tricuspid, or pulmonic valve noted visually. Systolic anterior motion of the mitral valve is not visualized. Ratio of pulmonary to systemic flow, Qp:Qs ratio = 0.9 (normal < or = 1.2), demonstrating no evidence of hemodynamically significant shunt. TISSUE CHARACTERIZATION Resting Perfusion: Normal myocardial blood flow at rest. No evidence of resting hypoperfusion. Myocardial Fibrosis and/or edema: Normal gadolinium k
== END ==
PROVIDERS: PCP Emergency Medicine; Visit Provider Internal Medicine
DX: A41.9 Sepsis, unspecified organism (principal); R65.20 Severe sepsis without septic shock; R06.09 Other forms of dyspnea; I42.2 Other hypertrophic cardiomyopathy
CPT/HCPCS: 75561; A9576

== ENCOUNTER → 2023-02-19 15:53 | Outpatient (CLI) | payer MEDICARE, MEDICAID, SELFPAY ==
[2023-02-19 14:04] LABS: Amphetamine/Metha Screen,Urine Negative ng/ml (<1000)
[2023-02-19 14:05] LABS: Barbiturates Screen,Urine Negative ng/ml (<200)
[2023-02-19 14:06] LABS: Benzodiazepines Screen,Urine Negative ng/ml (<200); Cannabinoid Screen,Urine Negative ng/ml (<50)
[2023-02-19 14:08] LABS: Methadone Screen,Urine Negative ng/ml (<300); Opiate Screen,Urine Negative ng/ml (<300)
[2023-02-19 14:09] LABS: Phencyclidine Screen,Urine Negative ng/ml (<25)
[2023-02-19 14:51] LABS: Cocaine Screen,Urine Negative ng/ml (<300)
== END ==
PROVIDERS: PCP Emergency Medicine; Visit Provider Emergency Medicine
DX: Z79.899 Other long term (current) drug therapy (principal)
CPT/HCPCS: 80305

== ENCOUNTER → 2023-03-14 08:20 | Outpatient (CLI) | payer MEDICARE, MEDICAID, SELFPAY ==
[2023-03-14 09:20] LABS: Chloride 108 mmol/L (98-107); Potassium 3.9 mmoL/L (3.5-5.1); Sodium 142 mmol/L (136-145)
[2023-03-14 09:23] LABS: Anion Gap 13.9 mEq/L (5-15); Blood Urea Nitrogen 48 mg/dl (9-20); Carbon Dioxide 24 mmol/L (22.0-30.0); Estimated Glomerular Filt Rate 24 ml/min (>60); GFR (African American) 29 ML/MIN (>60)
[2023-03-14 09:24] LABS: Calcium 7.9 mg/dl (8.4-10.2); Glucose 103 mg/dl (74-100)
== END ==
PROVIDERS: PCP Internal Medicine; Visit Provider Nurse Practitioner Family
DX: I11.9 Hypertensive heart disease without heart failure (principal); I12.9 Hypertensive chronic kidney disease with stage 1 through stage 4 chronic kidney disease, or unspecified chronic kidney disease; N18.9 Chronic kidney disease, unspecified; R06.00 Dyspnea, unspecified; R60.9 Edema, unspecified; Z87.891 Personal history of nicotine dependence
CPT/HCPCS: 36415; 80048

== ENCOUNTER → 2023-03-15 09:17 | Outpatient (CLI) | payer MEDICARE, MEDICAID, SELFPAY | LOC: RT 09:18 | PROVIDERS: PCP Internal Medicine; Visit Provider Nurse Practitioner Family | DX: R06.00 Dyspnea, unspecified (principal); I10 Essential (primary) hypertension | CPT/HCPCS: 94060; 94726; 94729 ==

== ENCOUNTER 2023-04-19 11:39 | Outpatient (CLI) | payer MEDICARE, MEDICAID, SELFPAY ==
[2023-04-19 12:35] LABS: Chol/HDL Ratio 4.6 (1-3.5); Cholesterol 123 mg/dl (140-200); HDL Cholesterol 27 mg/dl (40-60); Triglycerides 137 mg/dl (30-150); VLDL Cholesterol 27 mg/dL (0-40)
[2023-04-19 12:39] LABS: Amphetamine/Metha Screen,Urine Negative ng/ml (<1000); Barbiturates Screen,Urine Negative ng/ml (<200); Benzodiazepines Screen,Urine Negative ng/ml (<200); Cannabinoid Screen,Urine Negative ng/ml (<50); Cocaine Screen,Urine Negative ng/ml (<300); Methadone Screen,Urine Negative ng/ml (<300); Opiate Screen,Urine Negative ng/ml (<300); Phencyclidine Screen,Urine Negative ng/ml (<25)
[2023-04-19 12:55] LABS: 25-OH Vitamin D, Total 38.6 ng/mL (30-100)
[2023-04-19 12:57] LABS: Direct LDL Cholesterol 69.74 mg/dL (100-129)
[2023-04-19 13:12] LABS: Thyroid Stimulating Hormone 4.44 uIU/mL (0.465-4.68)
[2023-04-19 14:40] LABS: Vitamin B12 > 1000 pg/mL (239-931)
== END 2023-04-19 23:59 ==
LOC: LAB.DROPOF 11:40
PROVIDERS: PCP Internal Medicine; Visit Provider Internal Medicine
DX: E05.90 Thyrotoxicosis, unspecified without thyrotoxic crisis or storm (principal); E53.8 Deficiency of other specified B group vitamins; Z79.899 Other long term (current) drug therapy; E78.5 Hyperlipidemia, unspecified; E55.9 Vitamin D deficiency, unspecified
CPT/HCPCS: 80061; 80307; 82306; 82607; 84443

== ENCOUNTER 2023-04-20 08:11 | Outpatient (CLI) | payer MEDICARE, MEDICAID, SELFPAY ==
[2023-04-27 11:19] LABS: Opiates Negative ng/mL (Cutoff=100)
== END 2023-04-20 23:59 ==
PROVIDERS: PCP Internal Medicine; Visit Provider Internal Medicine
DX: Z94.4 Liver transplant status (principal); Z79.899 Other long term (current) drug therapy
CPT/HCPCS: 80361; G0480

== ENCOUNTER 2023-05-02 12:44 | Outpatient (CLI) | payer MEDICARE, SELFPAY ==
--- NOTE | 2023-05-02 12:45 | US_ITS ---
FINAL REPORT CLINICAL HISTORY: rt inguinal pain - pain on rt side COMPARISON: None FINDINGS: Sonographic images were obtained of the right inguinal region. There appears to be bowel in the right inguinal region on the Valsalva maneuver which may represent hernia. IMPRESSION: Possible right inguinal hernia. Correlation with CT highly recommended. Reviewed, Interpreted and Dictated by Bakari Perez MD Transcribed by Cristy Vuong Authenticated and [facility]
== END 2023-05-02 23:59 ==
LOC: RAD 12:45
PROVIDERS: PCP Internal Medicine; Visit Provider Internal Medicine
DX: R10.813 Right lower quadrant abdominal tenderness; Z94.4 Liver transplant status
CPT/HCPCS: 76882

== ENCOUNTER 2023-05-14 08:26 | Outpatient (CLI) | payer MEDICARE, SELFPAY ==
[2023-05-14 08:48] LABS: Hematocrit 29.7 % (42.0-52.0); Hemoglobin 10.2 g/dL (14.1-18.0); Mean Corpuscular HGB Conc 34.3 g/dL (31.8-35.4); Mean Corpuscular Hemoglobin 30.1 pg (27.0-31.2); Mean Corpuscular Volume 87.9 fl (80-94); Platelet Count 128 K/mm3 (142-424); Red Blood Count 3.38 M/mm3 (4.60-6.20); Red Cell Distribution Width 13.7 % (11.5-17.5); White Blood Count 5.1 K/mm3 (4.8-10.8)
[2023-05-14 09:22] LABS: Chloride 110 mmol/L (98-107); Sodium 139 mmol/L (136-145)
[2023-05-14 09:23] LABS: Potassium 4.9 mmoL/L (3.5-5.1)
[2023-05-14 09:25] LABS: Alanine Aminotransferase 13 U/L (12-78); Albumin/Globulin Ratio 1.9 (1.1-1.8); Alkaline Phosphatase 93 U/L (38-126); Anion Gap 10.9 mEq/L (5-15); Aspartate Amino Transferase 18 U/L (17-59); Bilirubin,Total 0.6 mg/dl (0.2-1.3); Blood Urea Nitrogen 49 mg/dl (9-20); Calcium 8.1 mg/dl (8.4-10.2); Carbon Dioxide 23 mmol/L (22.0-30.0); Estimated Glomerular Filt Rate 21 ml/min (>60); GFR (African American) 25 ML/MIN (>60); Globulin 2.1 g/dL (1.3-3.2); Glucose 105 mg/dl (74-100); Total Protein,Serum 6.1 g/dl (6.3-8.2)
[2023-05-14 09:26] LABS: Magnesium 1.8 mg/dl (1.6-2.3)
[2023-05-14 10:38] LABS: Gamma Glutamyl Transpeptidase 14 U/L (15-73)
[2023-05-18 10:45] LABS: Cyclosporine 49
== END 2023-05-14 23:59 ==
LOC: LAB 08:28
PROVIDERS: PCP Internal Medicine; Visit Provider Transplant Surgery
DX: Z94.4 Liver transplant status (principal)
CPT/HCPCS: 36415; 80053; 80158; 82977; 83735; 85014; 85018; 85048; 85049

== ENCOUNTER 2023-06-20 08:50 | Outpatient (CLI) | payer MEDICARE, SELFPAY ==
[2023-06-20 09:33] LABS: Basophils % 0.8 % (0.1-2.0); Eosinophils # 0.1 K/mm3 (0.0-0.4); Eosinophils % 2.7 % (0.1-12.0); Hematocrit 29.2 % (42.0-52.0); Hemoglobin 9.7 g/dL (14.1-18.0); Lymphocytes # 0.9 K/mm3 (0.7-4.5); Lymphocytes % 19.5 % (10-50); Mean Corpuscular HGB Conc 33.3 g/dL (31.8-35.4); Mean Corpuscular Hemoglobin 30.9 pg (27.0-31.2); Mean Corpuscular Volume 92.9 fl (80-94); Mean Platelet Volume 10.1 fl (7.4-10.4); Monocytes # 0.3 K/mm3 (0.1-1.0); Monocytes % 6.3 % (1.7-9.3); Neutrophils # 3.4 K/mm3 (1.8-7.8); Neutrophils % 70.8 % (37.0-80.0); Platelet Count 129 K/mm3 (142-424); Red Blood Count 3.15 M/mm3 (4.60-6.20); Red Cell Distribution Width 14.1 % (11.5-17.5); White Blood Count 4.8 K/mm3 (4.8-10.8)
[2023-06-20 09:38] LABS: INR 1.25 (0.9-1.1); Prothrombin Time 13.3 seconds (10.1-12.5)
[2023-06-20 10:15] LABS: Anion Gap 12.2 mEq/L (5-15); Blood Urea Nitrogen 46 mg/dl (9-20); Calcium 8.5 mg/dl (8.4-10.2); Carbon Dioxide 24 mmol/L (22.0-30.0); Chloride 110 mmol/L (98-107); Estimated Glomerular Filt Rate 23 ml/min (>60); GFR (African American) 27 ML/MIN (>60); Glucose 95 mg/dl (74-100); Potassium 4.2 mmoL/L (3.5-5.1); Sodium 142 mmol/L (136-145)
== END 2023-06-20 23:59 ==
PROVIDERS: PCP Internal Medicine; Visit Provider Surgery
DX: Z87.19 Personal history of other diseases of the digestive system (principal); B19.20 Unspecified viral hepatitis C without hepatic coma; K40.20 Bilateral inguinal hernia, without obstruction or gangrene, not specified as recurrent; Z12.5 Encounter for screening for malignant neoplasm of prostate
CPT/HCPCS: 36415; 80048; 85025; 85610; G0103

== ENCOUNTER → 2023-07-02 08:47 | Day surgery (SDC) | payer MEDICARE, SELFPAY ==
[2023-06-29 09:32] VITALS: BMI 29.8
[2023-07-02] MEDS: LACTATED RINGERS 1000ML 1,000 ML 100 ML IV (09:01)
[2023-07-02 09:03] VITALS: BP 131/62; PULSE 49; RESP 18; TEMP 37; O2SAT 99
[2023-07-02 09:21] LABS: Chloride 110 mmol/L (98-107); Potassium 3.6 mmoL/L (3.5-5.1); Sodium 140 mmol/L (136-145)
[2023-07-02 09:24] LABS: Alanine Aminotransferase 17 U/L (12-78); Albumin/Globulin Ratio 1.7 (1.1-1.8); Alkaline Phosphatase 106 U/L (38-126); Anion Gap 8.6 mEq/L (5-15); Aspartate Amino Transferase 25 U/L (17-59); Bilirubin,Total 0.8 mg/dl (0.2-1.3); Blood Urea Nitrogen 35 mg/dl (9-20); Calcium 8.6 mg/dl (8.4-10.2); Carbon Dioxide 25 mmol/L (22.0-30.0); Creatinine Clearance Estimated 34 mL/min (50-200); Estimated Glomerular Filt Rate 23 ml/min (>60); GFR (African American) 27 ML/MIN (>60); Globulin 2.4 g/dL (1.3-3.2); Glucose 97 mg/dl (74-100); Total Protein,Serum 6.4 g/dl (6.3-8.2)
--- NOTE | 2023-07-02 18:48 | SUR.PREOP ---
due to an emergent case in the ER, case was postponed for tomorrow morning per MD Rehman. Pt and both voiced complete understanding.
== END ==
LOC: OR 08:48
PROVIDERS: PCP Internal Medicine; Visit Provider Surgery
PROC: (CPT 49650; principal; 2023-07-02 09:45)
DX: Z53.01 Procedure and treatment not carried out due to patient smoking (principal)
CPT/HCPCS: 49650; 80053

== ENCOUNTER 2023-07-03 09:26 | Day surgery (SDC) | payer MEDICARE, SELFPAY ==
[2023-07-03] VITALS (8 sets, daily range): BP systolic 146–170; BP diastolic 59–98; PULSE 51–66; RESP 12–20; TEMP 36.2–36.6; O2SAT 91–98; BMI 29.8
[2023-07-03] MEDS: LACTATED RINGERS 1000ML 1,000 ML 100 ML IV (09:57)
--- NOTE | 2023-07-03 10:48 | P.PNANES_ITS ---
[facility] Disclaimer: The information contained in this section may have been updated after the patient was seen, as this information can be updated by other users. Medical History Hepatitis C Cirrhosis Encounter for preoperative assessment for noncoronary cardiac surgery Hyperlipidemia Osteopenia Swelling of external ear Abnormal electrocardiography Abnormal cardiovascular stress test Atypical angina Encounter for pre-operative cardiovascular clearance Surgical History History of colonoscopy Liver transplant recipient Family History Other Family history of cancer Family history of heart disease Social History Smoking Status: Former smoker tobacco type: cigarettes packs per day: 1 second hand exposure: No alcohol intake: former substance use type: denies use current occupational status: disabled Travel in the last 8 weeks: None household members: spouse housing: house current occupational exposures/hazards: No caffeine: Yes [facility] Anesthesia Checklist Patient Identification Patient Identification: Arm Band Structural Data Admitted From: Home Planned Operative Procedure/s: Laparoscopic Bilateral Inguinal Hernia Repair Consent for Planned Operative Procedure(s) Verified: Yes Verified Documents: Surgical Consent and History and Physical NPO Status Verified Time NPO: 00:00 Additional verifications Anesthesia Reactions: No Hx Blood Transfusions: Yes Blood Transfusion Reaction: No Airway Assessment Mallampati Score:: Class II C-Spine Mobility Assessed: Yes TMJ Mobility Assessed: Yes Dentition: Good Dentition Neurological Assessment Level of Consciousness: Awake and Alert Anesthesia Plan Anesthesia Risk discussed: Yes Anesthesia Plan: Verified ASA Class: III Anesthesia Type: General
[2023-07-03] MEDS: CEFAZOLIN SODIUM 2 GM in 0.9 % SODIUM CHLORIDE 100 ML IV (12:25)
[2023-07-03] MEDS: LIDOCAINE 1% 20ML MDV 20 ML (12:45)
[2023-07-03] MEDS: ROPIVACAINE 0.5% 30ML VIAL 150 MG (12:45)
--- NOTE | 2023-07-03 14:33 | P.OP_ITS ---
Date of procedure: 07/03/23 Pre-op Diagnosis:: Bilateral inguinal hernias Post-op Diagnosis:: Same Procedure performed:: Laparoscopic bilateral inguinal hernia repair (TEPP) with placement of large Bard 3-D Max mesh Surgeon:: Ashkan Laughlin MD Anesthesia: JUJU Estimated blood loss (mL): 15 Operative findings:: He had a moderately large indirect right inguinal hernia with herniated preperitoneal fat as well as a small hernia sac. On the left side there was moderate indirect hernia with herniated preperitoneal fat as a cord lipoma. Operative note:: Patient was taken to the operating room. He was given preoperative intravenous antibiotic. In the operating room he was placed in a supine position. General anesthesia was induced via endotracheal tube. Sloan catheter was placed. Abdomen was prepped and draped in the standard surgical fashion. Subumbilical skin incision was made. Dissection was carried down to the anterior rectus fascia which was incised to the right of the linea alba. Preperitoneal space was entered and rectus muscles were retracted laterally. Dissecting balloon trocar was then inserted into the preperitoneal space and insufflated under laparoscopic visualization. This was then removed and replaced with the structural balloon trocar. CO2 pneumo preperitoneum was achieved. A couple 5 mm preperitoneal trocars were inserted in the midline inferior to the umbilicus. Attention was turned to dissection on the right side. Chuck's ligament and pubic tubercle were identified. Inferior epigastric vessels were identified. Iliac vessels were identified. There was no evidence of any direct hernia. Di ssection was carried out of the cord. This was dissected free from surrounding tissues. There was a significant amount of herniated preperitoneal fat along the cord as a cord lipoma. This was dissected from the inguinal canal and returned to the normal anatomic position. Further dissection did reveal moderate somewhat thickened hernia sac which was dissected free from the cord and return to the normal anatomic position. Dissection was carried out laterally to allow for mesh placement. Under visualization at this time local anesthetic was infiltrated for inguinal nerve block. Dissection was then turned to the left side. In similar fashion landmarks were identified initially identifying Chuck's ligament then further dissection allowing for visualization of the inferior epigastric vessels and cord structures as well as iliac vessels. There was no evidence of any direct hernia. Dissection of the cord revealed some herniated preperitoneal fat as a cord lipoma as a direct hernia with patent processes vaginalis. This was able to be dissected free from the cord and return to the peritoneal cavity. Dissection was carried out laterally to allow for mesh placement. Local anesthetic was infiltrated under visualization for inguinal nerve block. Large size Bard 3D max mesh was then inserted through the trocar into the preperitoneal space and oriented intracorporeally to cover the entire iliopectineal orifice. It was secured to Chuck's ligament with a couple of absorbable OPTi fix tacks . Attention was turned to mesh placement on the right. A large sized Bard 3D max mesh dedicated for the right side was rolled and inserted into the preperitoneal space. It was oriented intracorporeally to cover the iliopectineal orifice in its entirety. Repair appeared adequate and it did not appear as though it would require placement of anchoring tacks. There was good hemostasis. Patient was then placed in reverse Trendelenburg. Mesh was observed to be in a good position as CO2 pneumo preperitoneum was evacuated. Trocars were removed. Posterior fascia and peritoneum at the umbilical site was then opened to evacuate any potential intra-abdominal gas. Fascia at the umbilicus was then closed with several interrupted 0 Vicryl sutures. Local anesthetic was infiltrated into the trocar sites. Skin incisions were closed with 4-0 Monocryl in a subcuticular fashion. Dermabond and dressings were applied. Condition: stable Disposition: PACU Complications:: None immediately apparent
--- NOTE | 2023-07-03 14:47 | P.PNANES_ITS ---
[facility] Anesthesia Record Part I Anesthesia Record I Intake, IV Amount: 1,200 Hydration: Adequate Estimated blood loss (mL): 25 Urine output (mL): 400 Blood Products used (#): none Blood Pressure: 146/90 SaO2: 92 Pulse Rate: 66 Airway Patency: Patent Respiratory Rate: 18 Temperature: 97.7 F Patient is:: Awake (Talking) and Stable Stable to PACU at:: 14:40
[2023-07-03 14:59] LABS: Microscopic,Cath URINE MICROSCOPIC (MICROSCOPIC)
[2023-07-03 15:08] LABS: Appearance,Urine/Cath CLEAR (Clear); Bilirubin,Cath Negative (Negative); Blood, Urine/Cath TRACE-I (Negative); Color,Urine/Cath YELLOW (Yellow); Glucose,Urine/Cath (UA) Negative (Negative); Ketones,Urine/Cath Negative (Negative); Leukocyte Esterase,Cath Negative (Negative); Nitrate,Cath Negative (Negative); PH,Urine/Cath 5.5 (5.0-8.5); Protein,Urine/Cath Negative (Negative); Specific Gravity, Urine/Cath 1.015 (1.005-1.030); Urobilinogen,Cath 0.2 EU/dl (0.2)
[2023-07-03 16:14] LABS: WBC,Urine/Cath Occasional #/hpf (0-3)
--- NOTE | 2023-07-04 07:45 | EXP.ANES.II ---
[facility] Anesthesia Record Part II Anesthesia Record Part II Discharge Time: 15:05 Destination: Surgical Day Care (OP Surgery) PACU nurse assessment reviewed?: Yes Patient Condition:: Good Anesthesia Complications:: None Swallowing reflex intact?: Yes Airway Patency: Patent Cyanosis?: No Blood Pressure: 161/92 SaO2: 94 Respiratory Rate: 16 Pulse Rate: 56 Temperature: 97.7 F Mental Status: Alert & Oriented Pain level:: 0 Nausea and/or vomitting:: None Intake, IV Amount: 0 Hydration: Adequate
[2023-07-04 07:46] VITALS: BP 161/92; PULSE 56; RESP 16; TEMP 36.5; O2SAT 94
== END 2023-07-03 15:30 | disposition home or self-care (01) ==
PROVIDERS: PCP Internal Medicine; Visit Provider Surgery
PROC: (CPT 49650; principal; 2023-07-03 12:00)
DX: K40.21 Bilateral inguinal hernia, without obstruction or gangrene, recurrent (principal)
CPT/HCPCS: 49650; 81001; 96374; J3490; C1781; J2405

== ENCOUNTER 2023-07-24 10:28 | Outpatient (POV) | payer MEDICARE, SELFPAY | END 2023-07-24 23:59 | disposition home or self-care (01) | LOC: SC 10:29 | PROVIDERS: Visit Provider Nurse Practitioner | DX: Z00.00 Encounter for general adult medical examination without abnormal findings (principal) ==

== ENCOUNTER 2023-08-06 19:36 | Emergency (ER) | payer MEDICARE, SELFPAY ==
[2023-08-06 19:36] VITALS: BP 106/60; PULSE 67; RESP 18; TEMP 36.6; O2SAT 98; BMI 28.4
--- NOTE | 2023-08-06 19:52 | XR_ITS ---
PROCEDURE INFORMATION: Exam: XR Chest Exam date and time: 08/06/2023 7:52 PM Age: 67 years old Clinical indication: Pain; Left-sided; Additional info: L upper rib pain, doing yard work and pulled possible muscle TECHNIQUE: Imaging protocol: Radiologic exam of the chest. Views: 2 views. COMPARISON: CR XR CHEST PORTABLE 09/08/2022 10:24 AM FINDINGS: Lungs: Normal. Pleural spaces: Normal. No pleural effusion. No pneumothorax. Heart/Mediastinum: Normal. No cardiomegaly. Vasculature: Tortuous atherosclerotic thoracic aorta. Bones/joints: Unremarkable. IMPRESSION: No acute findings.
--- NOTE | 2023-08-06 19:52 | HMH.EDGENADL ---
Discharge Plan Disposition Patient Disposition: Home, Self-Care Condition: Good Prescriptions Prescriptions: New lidocaine 5 % adhesive patch,medicated 1 patch topical Q24H PRN (Reason: pain) 5 Days Qty: 15 0RF Rx Instructions: leave on most painful area for up to 12 hrs methocarbamol 500 mg tablet 500 mg PO TID PRN (Reason: pain) 5 Days Qty: 20 0RF No Action aspirin [Adult Aspirin Regimen] 81 mg tablet,delayed release (DR/EC) 81 mg PO DAILY mycophenolate mofetil 500 mg tablet 500 mg PO BID calcium carbonate [Calcium 600] 600 mg calcium (1,500 mg) tablet 600 mg PO DAILY Qty: 30 3RF cyclosporine 25 mg capsule 25 mg PO BID cyanocobalamin (vitamin B-12) 1,000 mcg tablet See Rx Instructions .ROUTE .COMPLEX Qty: 90 0RF Dose Instruction: TAKE 1 TABLET BY MOUTH ONCE A DAY Rx Instructions: TAKE 1 TABLET BY MOUTH ONCE A DAY Renal Caps 1 mg capsule See Rx Instructions .ROUTE .COMPLEX Qty: 30 0RF Dose Instruction: TAKE 1 CAPSULE BY MOUTH ONCE A DAY Rx Instructions: TAKE 1 CAPSULE BY MOUTH ONCE A DAY ondansetron 4 mg tablet,disintegrating See Rx Instructions .ROUTE .COMPLEX Qty: 30 0RF Dose Instruction: DISSOLVE 1 TABLET ON THE TONGUE EVERY 6 HOURS NEEDED FOR NAUSEA/VOMITING Rx Instructions: DISSOLVE 1 TABLET ON THE TONGUE EVERY 6 HOURS NEEDED FOR NAUSEA/VOMITING torsemide 20 mg tablet 10 mg PO DAILY Qty: 30 5RF carvedilol 6.25 mg tablet See Rx Instructions .ROUTE .COMPLEX Qty: 90 4RF Dose Instruction: TAKE ONE TABLET BY MOUTH 2 TIMES A DAY WITH A MEAL/FOOD Rx Instructions: TAKE ONE TABLET BY MOUTH 2 TIMES A DAY WITH A MEAL/FOOD hydralazine 25 mg tablet 25 mg PO DAILY Qty: 90 1RF atorvastatin 20 mg tablet See Rx Instructions .ROUTE .COMPLEX Qty: 30 5RF Dose Instruction: TAKE ONE TABLET BY MOUTH ONCE A DAY Rx Instructions: TAKE ONE TABLET BY MOUTH ONCE A DAY alendronate 70 mg tablet See Rx Instructions .ROUTE .COMPLEX Qty: 4 2RF Dose Instruction: TAKE ONE TABLET BY MOUTH ONCE WEEKLY FOR OSTEOPEROSIS Rx Instructions: TAKE ONE TABLET BY MOUTH ONCE WEEKLY FOR OSTEOPEROSIS doxazosin 4 mg tablet See Rx Instructions .ROUTE .COMPLEX Qty: 30 5RF Dose Instruction: TAKE ONE TABLET BY MOUTH ONCE A DAY Rx Instructions: TAKE ONE TABLET BY MOUTH ONCE A DAY losartan 25 mg tablet See Rx Instructions .ROUTE .COMPLEX Qty: 30 2RF Dose Instruction: TAKE ONE TABLET BY MOUTH ONCE A DAY Rx Instructions: TAKE ONE TABLET BY MOUTH ONCE A DAY hydrocodone-acetaminophen 7.5-325 mg tablet 1 tab PO TID Qty: 90 0RF isosorbide dinitrate 20 mg tablet See Rx Instructions .ROUTE .COMPLEX Qty: 90 3RF Dose Instruction: TAKE ONE TABLET BY MOUTH 3 TIMES A DAY, TAKE ALL 3 TABLETS WITHIN A 12 HOUR PERIOD Rx Instructions: TAKE ONE TABLET BY MOUTH 3 TIMES A DAY, TAKE ALL 3 TABLETS WITHIN A 12 HOUR PERIOD levothyroxine 25 mcg tablet See Rx Instructions .ROUTE .COMPLEX Qty: 30 0RF Dose Instruction: TAKE 1 TABLET BY MOUTH ONCE A DAY Rx Instructions: TAKE 1 TABLET BY MOUTH ONCE A DAY sodium zirconium cyclosilicate 10 GM powder in packet 10 gm PO DAILY 30 Days Qty: 30 0RF Referrals Follow up/Referrals: Mendoza Johnson DO [Primary Care Provider] - See instructions Activity Restrictions/Add. Instructions Additional Instructions/Restrictions: You have been evaluated in the ED for your complaints. You may follow-up with your PCP in the next 3 to 5 days. Please return to ED for any new or worsening symptoms. I have written for Robaxin and lidocaine patches to assist with your discomfort. No rib fractures were noted today. I believe that your symptoms are due to muscle strain given your pulling activity. Activity as tolerated over the next several days however I do recommend rest. Clinical Impressions Clinical Impression: Rib pain on left side Discharge ED Provider: Arsenio Muñoz Adult HPI General Chief complaint: Extremity Injury, Upper Stated complaint: Left axillary injury Time Seen by Provider: 08/06/23 19:38 Mode of Arrival: Ambulatory Source of Information: Patient Limitations: No Limitations Description of Symptoms (Recalled from ER Triage Doc. by RN): 67 M presents from home with left axillary pain after pulling on a mower deck and felt an immediate pain. Patient states the pain hit so hard it dazed me. Patient states he had a liver transplant and is concerned that this injury could have affected this. History of Present Illness HPI narrative: 67-year-old male with past medical history significant for hepatitis C, cirrhosis, liver transplant, HLD, CKD 3, hypertension, diastolic dysfunction, cardiomegaly, presents today for evaluation concerning left upper rib pain that has been present since yesterday. Patient states that he was working on a lawn more and was pulling a deck when he began to feel pain after pulling. Denies having any chest pain or shortness of breath. Has not had any nausea or vomiting. He has continued to use extremity however with some pain. Has not taken any pain medications to assist. Current pain rated as a 6 out of 10. Denies any other associated injuries. No further complaints. Related Data Home Medications Medication Instructions Recorded Confirmed aspirin 81 mg tablet,delayed 81 mg PO DAILY Blood thinner 01/10/21 07/03/23 release (Adult Aspirin Regimen) mycophenolate mofetil 500 mg tablet 500 mg PO BID transplant 06/15/21 07/03/23 cyclosporine 25 mg capsule 25 mg PO BID 12/27/22 07/03/23 Previous Rx's Medication Instructions Recorded sodium zirconium cyclosilicate 10 10 gm PO DAILY 30 days #30 ea 11/09/21 gram oral powder packet cyanocobalamin (vitamin B-12) See Rx Instructions .Route 02/01/22 1,000 mcg tablet .COMPLEX #90 caps vitamin B complex and vitamin C See Rx Instructions .Route 02/23/22 no.20-folic acid 1 mg capsule .COMPLEX #30 caps (Renal Caps) calcium carbonate (Calcium 600) 600 mg PO DAILY #30 tabs 11/23/22 ondansetron 4 mg disintegrating See Rx Instructions .Route 01/25/23 tablet .COMPLEX #30 tabs torsemide 20 mg tablet 10 mg (1/2 x 20 mg) PO DAILY #30 03/15/23 tabs carvedilol 6.25 mg tablet See Rx Instructions .Route 04/12/23 .COMPLEX #90 tabs hydralazine 25 mg tablet 25 mg PO DAILY #90 tabs 05/18/23 atorvastatin 20 mg tablet See Rx Instructions .Route 05/29/23 .COMPLEX #30 tabs alendronate 70 mg tablet See Rx Instructions .Route 06/28/23 .COMPLEX #4 tabs doxazosin 4 mg tablet See Rx Instructions .Route 06/28/23 .COMPLEX #30 tabs losartan 25 mg tablet See Rx Instructions .Route 06/28/23 .COMPLEX #30 tabs hydrocodone 7.5 mg-acetaminophen 1 tab PO TID #90 tabs 07/17/23 325 mg tablet isosorbide dinitrate 20 mg tablet See Rx Instructions .Route 07/30/23 .COMPLEX #90 tabs levothyroxine 25 mcg tablet See Rx Instructions .Route 07/30/23 .COMPLEX #30 tabs lidocaine 5 % topical patch 1 patch topical Q24H PRN pain 5 08/06/23 days #15 ea methocarbamol 500 mg tablet 500 mg PO TID PRN pain 5 days #20 08/06/23 tabs Allergies Allergy/AdvReac Type Severity Reaction Status Date / Time No Known Allergies Allergy Verified 07/03/23 09:50 [facility] Disclaimer: The information contained in this section may have been updated after the patient was seen, as this information can be updated by other users. Medical History (Updated 08/06/23 @ 20:44 by Arsenio Muñoz DO) Hepatitis C Cirrhosis Encounter for preoperative assessment for noncoronary cardiac surgery Hyperlipidemia Osteopenia Swelling of external ear Abnormal electrocardiography Abnormal cardiovascular stress test Atypical angina Encounter for pre-operative cardiovascular clearance Surgical History History of colonoscopy Liver transplant recipient Family History Other Family history of cancer Family history of heart disease Social History Smoking Status: Former smoker tobacco type: cigarettes packs per day: 1 second hand exposure: No alcohol intake: former substance use type: denies use current occupational status: disabled Travel in the last 8 weeks: None household members: spouse housing: house current occupational exposures/hazards: No caffeine: Yes ROS Obtained: Yes All systems reviewed & no additional complaints except as documented Physical Exam General General appearance: alert and in no apparent distress Head Head exam: atraumatic and normocephalic Eye Eye exam: Present normal appearance, PERRL and EOMI ENT ENT exam: Present normal oropharynx and mucous membranes moist Neck Neck exam: Present full ROM; Absent meningismus Chest Chest inspection: Present other (Reproducible tenderness palpation over the upper ribs laterally on the left, near axilla. No skin changes or signs of trauma. Patient able to range his upper extremities without difficulty.) Respiratory Respiratory exam: Absent respiratory distress, wheezes, stridor or accessory muscle use Cardiovascular Cardiovascular exam: Present normal rhythm Abdominal Exam Abdominal exam: Present soft; Absent distention, tenderness, guarding, rebound or rigidity Neurological Exam Neurological exam: Present alert, oriented X3 and CN II-XII intact; Absent motor sensory deficit Psychiatric Psychiatric exam: Present normal affect and normal mood Skin Skin exam: Present warm and dry Medical Decision Making Medical Records Medical records reviewed: Yes I reviewed the patient's medical records. Blaze Inquiry Pt receiving controlled substance: No Blaze was queried for this patient: No Vital Signs: 08/06/23 19:36 Temperature 97.8 F Temperature Source Oral Pulse Rate [Left] 67 Respiratory Rate 18 Blood Pressure [Right Arm] 106/60 L Blood Pressure Mean [Right Arm] 75 Blood Pressure Source [Right Arm] Automatic Cuff Blood Pressure Position [Right Arm] Sitting 02 Sat by Pulse Oximetry 98 Oxygen Delivery Method Room Air Orders (Tests/Meds): ED MEDICATIONS Generic Name Dose Route Start Last Admin Trade Name Freq PRN Reason Stop Dose Admin Lidocaine 1 each 08/06/23 20:00 08/06/23 20:27 Lidocaine 5% Transdermal Patch TP 09/05/23 19:59 1 each Q24H JOSE JUAN Administration Discontinued Medications Generic Name Dose Route Start Last Admin Trade Name Freq PRN Reason Stop Dose Admin Ibuprofen 800 mg 08/06/23 19:53 08/06/23 20:23 Ibuprofen 800 Mg Tablet PO 08/06/23 19:54 Not Given ONCE ONE Ibuprofen 800 mg 08/06/23 20:21 08/06/23 20:26 Ibuprofen 400 Mg Tablet PO 08/06/23 20:22 800 mg ONCE ONE Administration Methocarbamol 750 mg 08/06/23 19:53 08/06/23 20:26 Methocarbamol 500mg Tablet PO 08/06/23 19:54 750 mg ONCE ONE Administration ORDERS Category Date Time Status CXR 2 view (NOT portable) [XR chest 2V] Stat Exams 08/06/23 19:52 Completed Medical Decision Narrative: 67-year-old male with past medical history significant for hepatitis C, cirrhosis, liver transplant, HLD, CKD 3, hypertension, diastolic dysfunction, cardiomegaly, presents today for evaluation concerning left upper rib pain that has been present since yesterday. Patient states that he was working on a lawn more and was pulling a deck when he began to feel pain after pulling. Denies having any chest pain or shortness of breath. Has not had any nausea or vomiting. He has continued to use extremity however with some pain. On assessment he was medically stable and in no acute distress. Afebrile. Physical exam was remarkable for reproducible tenderness palpation over the upper ribs laterally mid axillary region. No external signs of trauma or overlying skin changes. He was able to range his upper extremities fully without difficulty. Chest clear auscultation bilaterally. Abdomen soft nondistended nontender palpation. Other physical exam vitals unremarkable. Differential diagnoses include but limited to rib fracture, muscle strain, among others. I did give patient Robaxin and ibuprofen as well as lidocaine patch to assist with his symptoms. I did order for a 2 view chest x-ray to rule out any abnormalities including rib fractures and on my informal interpretation no acute cardiopulmonary or bony disease processes were noted. Radiology report confirmed. On reassessment remains medically stable and in no acute distress. Still able to range his extremities without difficulty. I discussed ED workup and results and current plan to discharge with prescriptions for lidocaine patch and Robaxin to further assist. He verbalized understanding and agreement. Instructed him concerning activity as tolerated. Provided with return precautions. He was ultimately discharged home hemodynamically stable and in no acute distress. Critical Care Critical Care Time Critical Care Time: No
[2023-08-06 20:00] VITALS: BP 114/72; PULSE 60; O2SAT 97
[2023-08-06] MEDS: METHOCARBAMOL 500MG TABLET 750 MG PO (20:26)
[2023-08-06] MEDS: IBUPROFEN 400 MG TABLET 800 MG PO (20:26)
[2023-08-06] MEDS: LIDOCAINE 5% TRANSDERMAL PATCH 1 EACH TP (20:27)
[2023-08-06 20:30] VITALS: BP 115/72; PULSE 57; O2SAT 98
[2023-08-06 21:01] VITALS: BP 125/68; PULSE 58; O2SAT 98
[2023-08-06 21:08] VITALS: BP 125/68; PULSE 58; RESP 16; TEMP 36.6; O2SAT 98
== END 2023-08-06 21:09 | disposition home or self-care (01) ==
PROVIDERS: Emergency Provider Emergency Medicine; PCP Internal Medicine
DX: R07.81 Pleurodynia (principal); E78.5 Hyperlipidemia, unspecified; N18.30 Chronic kidney disease, stage 3 unspecified; B19.20 Unspecified viral hepatitis C without hepatic coma; K74.60 Unspecified cirrhosis of liver; Z94.4 Liver transplant status
CPT/HCPCS: 71046; 99283

== ENCOUNTER 2023-09-26 20:09 | Emergency (ER) | payer MEDICARE, SELFPAY ==
[2023-09-26 20:11] VITALS: BP 154/85; PULSE 80; RESP 20; TEMP 36.7; O2SAT 95; BMI 26.4
--- NOTE | 2023-09-26 20:25 | XR_ITS ---
PROCEDURE INFORMATION: Exam: XR Chest Exam date and time: 09/26/2023 8:39 PM Age: 67 years old Clinical indication: Dyspnea TECHNIQUE: Imaging protocol: Radiologic exam of the chest. Views: 1 view. COMPARISON: CR XR CHEST 2V 08/06/2023 7:52 PM FINDINGS: Lungs: Unremarkable. No consolidation. Pleural spaces: Unremarkable. No pleural effusion. No pneumothorax. Heart/Mediastinum: Unremarkable. No cardiomegaly. Bones/joints: Unremarkable. IMPRESSION: No acute findings.
--- NOTE | 2023-09-26 20:25 | CT_ITS ---
PROCEDURE INFORMATION: Exam: CT Abdomen And Pelvis Without Contrast Exam date and time: 09/26/2023 9:15 PM Age: 67 years old Clinical indication: Abdominal pain; Additional info: Rlq abd pain. Status post liver transplant x 3 years TECHNIQUE: Imaging protocol: Computed tomography of the abdomen and pelvis without contrast. Radiation optimization: All CT scans at this facility use at least one of these dose optimization techniques: automated exposure control; mA and/or kV adjustment per patient size (includes targeted exams where dose is matched to clinical indication); or iterative reconstruction. COMPARISON: CT ABDOMEN PELVIS WO CON 09/08/2022 10:24 AM FINDINGS: Lungs: Patchy bibasilar subsegmental atelectasis in visualized thorax. Liver: Measures 20 cm. No mass. Gallbladder and bile ducts: Surgically absent. Pancreas: Normal. No ductal dilation. Spleen: Normal. No splenomegaly. Adrenal glands: Normal. No mass. Kidneys and ureters: 0.6 cm nonobstructive right renal calculus. Stomach and bowel: Scattered colonic diverticula without pericolonic fat stranding. Appendix: No evidence of appendicitis. Intraperitoneal space: Unremarkable. No free air. No significant fluid collection. Vasculature: Unremarkable. No abdominal aortic aneurysm. Lymph nodes: Unremarkable. No enlarged lymph nodes. Urinary bladder: Mild urinary bladder wall thickening with pericystic fat stranding. Reproductive: Unremarkable as visualized. Bones/joints: Unremarkable. No acute fracture. Soft tissues: Unremarkable. IMPRESSION: 1. Mild urinary bladder wall thickening with pericystic fat stranding. Query low-grade cystitis symptoms. 2. Nonobstructive right renal calculus. 3. Colonic diverticulosis. 4. Hepatomegaly.
--- NOTE | 2023-09-26 20:31 | HMH.EDGENADL ---
Discharge Plan Disposition Patient Disposition: Home, Self-Care Prescriptions Prescriptions: New azithromycin 250 mg tablet See Rx Instructions .ROUTE .COMPLEX Qty: 6 0RF Rx Instructions: For 250 mg dose pack: take 500 mg today (day 1), then 250 mg for 4 days (days 2-5) benzonatate 100 mg capsule 100 mg PO TID PRN (Reason: cough) 5 Days Qty: 20 0RF amoxicillin-pot clavulanate 875-125 mg tablet 1 tab PO BID 10 Days Qty: 20 0RF No Action aspirin [Adult Aspirin Regimen] 81 mg tablet,delayed release (DR/EC) 81 mg PO DAILY mycophenolate mofetil 500 mg tablet 500 mg PO BID calcium carbonate [Calcium 600] 600 mg calcium (1,500 mg) tablet 600 mg PO DAILY Qty: 30 3RF cyclosporine 25 mg capsule 25 mg PO BID cyanocobalamin (vitamin B-12) 1,000 mcg tablet See Rx Instructions .ROUTE .COMPLEX Qty: 90 0RF Dose Instruction: TAKE 1 TABLET BY MOUTH ONCE A DAY Rx Instructions: TAKE 1 TABLET BY MOUTH ONCE A DAY Renal Caps 1 mg capsule See Rx Instructions .ROUTE .COMPLEX Qty: 30 0RF Dose Instruction: TAKE 1 CAPSULE BY MOUTH ONCE A DAY Rx Instructions: TAKE 1 CAPSULE BY MOUTH ONCE A DAY ondansetron 4 mg tablet,disintegrating See Rx Instructions .ROUTE .COMPLEX Qty: 30 0RF Dose Instruction: DISSOLVE 1 TABLET ON THE TONGUE EVERY 6 HOURS NEEDED FOR NAUSEA/VOMITING Rx Instructions: DISSOLVE 1 TABLET ON THE TONGUE EVERY 6 HOURS NEEDED FOR NAUSEA/VOMITING torsemide 20 mg tablet 10 mg PO DAILY Qty: 30 5RF carvedilol 6.25 mg tablet See Rx Instructions .ROUTE .COMPLEX Qty: 90 4RF Dose Instruction: TAKE ONE TABLET BY MOUTH 2 TIMES A DAY WITH A MEAL/FOOD Rx Instructions: TAKE ONE TABLET BY MOUTH 2 TIMES A DAY WITH A MEAL/FOOD hydralazine 25 mg tablet 25 mg PO DAILY Qty: 90 1RF atorvastatin 20 mg tablet See Rx Instructions .ROUTE .COMPLEX Qty: 30 5RF Dose Instruction: TAKE ONE TABLET BY MOUTH ONCE A DAY Rx Instructions: TAKE ONE TABLET BY MOUTH ONCE A DAY alendronate 70 mg tablet See Rx Instructions .ROUTE .COMPLEX Qty: 4 2RF Dose Instruction: TAKE ONE TABLET BY MOUTH ONCE WEEKLY FOR OSTEOPEROSIS Rx Instructions: TAKE ONE TABLET BY MOUTH ONCE WEEKLY FOR OSTEOPEROSIS doxazosin 4 mg tablet See Rx Instructions .ROUTE .COMPLEX Qty: 30 5RF Dose Instruction: TAKE ONE TABLET BY MOUTH ONCE A DAY Rx Instructions: TAKE ONE TABLET BY MOUTH ONCE A DAY losartan 25 mg tablet See Rx Instructions .ROUTE .COMPLEX Qty: 30 2RF Dose Instruction: TAKE ONE TABLET BY MOUTH ONCE A DAY Rx Instructions: TAKE ONE TABLET BY MOUTH ONCE A DAY isosorbide dinitrate 20 mg tablet See Rx Instructions .ROUTE .COMPLEX Qty: 90 3RF Dose Instruction: TAKE ONE TABLET BY MOUTH 3 TIMES A DAY, TAKE ALL 3 TABLETS WITHIN A 12 HOUR PERIOD Rx Instructions: TAKE ONE TABLET BY MOUTH 3 TIMES A DAY, TAKE ALL 3 TABLETS WITHIN A 12 HOUR PERIOD levothyroxine 25 mcg tablet See Rx Instructions .ROUTE .COMPLEX Qty: 30 0RF Dose Instruction: TAKE 1 TABLET BY MOUTH ONCE A DAY Rx Instructions: TAKE 1 TABLET BY MOUTH ONCE A DAY hydrocodone-acetaminophen 7.5-325 mg tablet 1 tab PO TID Qty: 90 0RF lidocaine 5 % adhesive patch,medicated 1 patch topical Q24H PRN (Reason: pain) 5 Days Qty: 15 0RF Rx Instructions: leave on most painful area for up to 12 hrs methocarbamol 500 mg tablet 500 mg PO TID PRN (Reason: pain) 5 Days Qty: 20 0RF sodium zirconium cyclosilicate 10 GM powder in packet 10 gm PO DAILY 30 Days Qty: 30 0RF Referrals Follow up/Referrals: Mendoza Johnson DO [Primary Care Provider] - See instructions Activity Restrictions/Add. Instructions Additional Instructions/Restrictions: Overall your emergency workup was largely unremarkable. No definitive evidence of pneumonia CAT scan showed no intra-abdominal pathology that would warrant emergent surgical intervention. Your kidney function has slightly worsened please follow-up with primary care doctor regarding this. We will treat you given your immune suppressed status for your chronic cough for possible bacterial bronchitis however this is still most likely viral. Please follow-up closely with primary care doctor and return with any significant worsening of her symptoms. Clinical Impressions Clinical Impression: Liver transplant recipient, Immunosuppressed status, Generalized weakness, Dizziness, Abdominal pain, acute, right lower quadrant, Bronchitis, CKD (chronic kidney disease) Discharge ED Provider: Dao Mueller General Adult HPI General Chief complaint: Weakness Stated complaint: cough,congestion,blood pressure little low Time Seen by Provider: 09/26/23 20:14 Mode of Arrival: Wheelchair Source of Information: Patient and Spouse Limitations: No Limitations Description of Symptoms (Recalled from ER Triage Doc. by RN): pt is here today for generalized weakness and dizziness for the last 3-4 days as well as a cough for the last two weeks. pt has hx of liver transplant 2 years ago at . denies fever n/v/d cp or soa History of Present Illness HPI narrative: Patient is a 67-year-old status post liver transplant 3 years ago secondary to alcoholic cirrhosis presents today with multiple complaints. States he has been having for the last 2 weeks cough, dizziness and lightheadedness, and some right lower quadrant abdominal pain particular when coughing. His is at the bedside states he got to the point where he felt like he could not hold his 8-month-old grandchild without being afraid of dropping them. That ultimately prompted him to come to the emergency department today. No fevers or chills. No changes in bowel movements no changes in urination. He has been compliant with his rejection medications and immunosuppressants. No history of rejection that he is aware of. He denies any chest pain shortness of breath or other complaints. Related Data Home Medications Medication Instructions Recorded Confirmed aspirin 81 mg tablet,delayed 81 mg PO DAILY Blood thinner 01/10/21 08/15/23 release (Adult Aspirin Regimen) mycophenolate mofetil 500 mg tablet 500 mg PO BID transplant 06/15/21 08/15/23 cyclosporine 25 mg capsule 25 mg PO BID 12/27/22 08/15/23 Previous Rx's Medication Instructions Recorded sodium zirconium cyclosilicate 10 10 gm PO DAILY 30 days #30 ea 11/09/21 gram oral powder packet cyanocobalamin (vitamin B-12) See Rx Instructions .Route 02/01/22 1,000 mcg tablet .COMPLEX #90 caps vitamin B complex and vitamin C See Rx Instructions .Route 02/23/22 no.20-folic acid 1 mg capsule .COMPLEX #30 caps (Renal Caps) calcium carbonate (Calcium 600) 600 mg PO DAILY #30 tabs 11/23/22 ondansetron 4 mg disintegrating See Rx Instructions .Route 01/25/23 tablet .COMPLEX #30 tabs torsemide 20 mg tablet 10 mg (1/2 x 20 mg) PO DAILY #30 03/15/23 tabs carvedilol 6.25 mg tablet See Rx Instructions .Route 04/12/23 .COMPLEX #90 tabs hydralazine 25 mg tablet 25 mg PO DAILY #90 tabs 05/18/23 atorvastatin 20 mg tablet See Rx Instructions .Route 05/29/23 .COMPLEX #30 tabs alendronate 70 mg tablet See Rx Instructions .Route 06/28/23 .COMPLEX #4 tabs doxazosin 4 mg tablet See Rx Instructions .Route 06/28/23 .COMPLEX #30 tabs losartan 25 mg tablet See Rx Instructions .Route 06/28/23 .COMPLEX #30 tabs isosorbide dinitrate 20 mg tablet See Rx Instructions .Route 07/30/23 .COMPLEX #90 tabs lidocaine 5 % topical patch 1 patch topical Q24H PRN pain 5 08/06/23 days #15 ea methocarbamol 500 mg tablet 500 mg PO TID PRN pain 5 days #20 08/06/23 tabs levothyroxine 25 mcg tablet See Rx Instructions .Route 08/27/23 .COMPLEX #30 tabs hydrocodone 7.5 mg-acetaminophen 1 tab PO TID #90 tabs 09/12/23 325 mg tablet amoxicillin 875 mg-potassium 1 tab PO BID 10 days #20 tabs 09/26/23 clavulanate 125 mg tablet azithromycin 250 mg tablet See Rx Instructions PO .COMPLEX #6 09/26/23 tabs benzonatate 100 mg capsule 100 mg PO TID PRN cough 5 days #20 09/26/23 caps Allergies Allergy/AdvReac Type Severity Reaction Status Date / Time No Known Allergies Allergy Verified 08/15/23 10:56 [facility] Disclaimer: The information contained in this section may have been updated after the patient was seen, as this information can be updated by other users. Medical History Hepatitis C Cirrhosis Encounter for preoperative assessment for noncoronary cardiac surgery Hyperlipidemia Lipid panel done April 19, 2023 revealed triglyceride 137 total cholesterol 123 LDL of 70 and an HDL of 27. Continue him on his current medications. Osteopenia Patient is on alendronate and calcium as well as vitamin D. Will continue these medications. Swelling of external ear Abnormal electrocardiography Abnormal cardiovascular stress test Atypical angina Encounter for pre-operative cardiovascular clearance Surgical History History of colonoscopy Liver transplant recipient Family History Other Family history of cancer Family history of heart disease Social History Smoking Status: Former smoker tobacco type: cigarettes packs per day: 1 second hand exposure: No alcohol intake: former substance use type: denies use current occupational status: disabled Travel in the last 8 weeks: None household members: spouse housing: house current occupational exposures/hazards: No caffeine: Yes ROS Obtained: Yes All systems reviewed & no additional complaints except as documented Physical Exam General General appearance: alert and in no apparent distress Respiratory Respiratory exam: Present normal lung sounds bilaterally; Absent respiratory distress Cardiovascular Cardiovascular exam: Present regular rate Abdominal Exam Abdominal exam: Present soft and tenderness (Right lower quadrant tenderness no rebound or guarding there is a well-healed large abdominal scar); Absent distention Neurological Exam Neurological exam: Present alert and oriented X3 Medical Decision Making Blaze Inquiry Pt receiving controlled substance: No Vital Signs: 09/26/23 20:11 09/26/23 20:55 09/26/23 21:31 Temperature 98.0 F Temperature Source Oral Pulse Rate 64 63 Pulse Rate [Right Radial] 80 Respiratory Rate 20 15 27 H Blood Pressure 136/80 171/89 H Blood Pressure [Right Arm] 154/85 H Blood Pressure Mean [Right Arm] 108 02 Sat by Pulse Oximetry 95 97 97 Oxygen Delivery Method Room Air 09/26/23 22:00 Temperature Temperature Source Pulse Rate 65 Pulse Rate [Right Radial] Respiratory Rate 19 Blood Pressure 151/77 H Blood Pressure [Right Arm] Blood Pressure Mean [Right Arm] 02 Sat by Pulse Oximetry 99 Oxygen Delivery Method Lab Data Lab results reviewed: Yes I reviewed the patient's lab results. Lab Results 09/26/23 20:25: WBC 5.3, RBC 2.98 L, Hgb 8.8 L, Hct 26.6 L, MCV 89.4, MCH 29.7, MCHC 33.2, RDW 13.8, Plt Count 174, MPV 9.5, Neut % (Auto) 78.7, Lymph % (Auto) 12.0, [place] % (Auto) 6.1, Eos % (Auto) 2.7, Baso % (Auto) 0.5, Neut # (Auto) 4.2, Lymph # (Auto) 0.6 L, [place] # (Auto) 0.3, Eos # (Auto) 0.1, Baso # (Auto) 0.0, Sodium 136, Potassium 4.1, Chloride 104, Carbon Dioxide 20 L, Anion Gap 16.1 H, BUN 61 H, Creatinine 3.20 H, Estimated Creat Clear 27, Estimated GFR 19 L*, Est GFR ( Amer) 23 L, Glucose 145 H, Lactate 1.0, Calcium 8.7, Phosphorus 3.8, Magnesium 1.7, Total Bilirubin 0.6, AST 27, ALT 17, Alkaline Phosphatase 97, Troponin I < 0.01, Total Protein 6.6, Albumin 3.7, Globulin 2.9, Albumin/Globulin Ratio 1.3 09/26/23 20:30: Chlamy pneumoniae PCR Not detected, Adenovirus (PCR) Not detected, B. pertussis DNA (PCR) Not detected, Coronavirus OC43 (PCR) Not detected, Coronavirus HKU1 (PCR) Not detected, Coronavirus 229E (PCR) Not detected, SARS-CoV-2 (PCR) Not detected, Coronavirus NL63 (PCR) Not detected, Human Metapneumovir PCR Not detected, Influenza A (H1) PCR Not detected, Influ A (H1N1/09) PCR Not detected, Influenza A (H3) PCR Not detected, Influenza Type A (PCR) Not detected, Influenza Type B (PCR) Not detected, M. pneumoniae (PCR) Not detected, Parainfluenza 1 (PCR) Not detected, Parainfluenza 2 (PCR) Not detected, Parainfluenza 3 (PCR) Not detected, Parainfluenza 4 (PCR) Not detected, RSV (PCR) Not detected, Entero/Rhino (PCR) Not detected 09/26/23 20:45: Urine Color Yellow, Urine Appearance Clear, Urine pH 5.5, Ur Specific [place] 1.015, Urine Protein Negative, Urine Glucose (UA) Negative, Urine Ketones Negative, Urine Blood Negative, Urine Nitrate Negative, Urine Bilirubin Negative, Urine Urobilinogen 0.2, Ur Leukocyte Esterase Negative, Urine WBC Occasional, Ur Squamous Epith Cells 3-5, Urine Bacteria Trace 09/26/23 20:25 09/26/23 20:25 Orders (Tests/Meds): ED MEDICATIONS Discontinued Medications Generic Name Dose Route Start Last Admin Trade Name Freq PRN Reason Stop Dose Admin Lactated Ringer's 1,000 mls @ 999 mls/hr 09/26/23 20:30 09/26/23 20:53 Lactated Ringer's 1000 Ml Bag IV 09/26/23 21:30 999 mls/hr .Q1H1M JOSE JUAN Administration ORDERS Category Date Time Status CT abdomen pelvis wo con Stat Cat Scan 09/26/23 20:25 Completed CXR --portable [XR chest portable] Stat Exams 09/26/23 20:25 Completed CBC w/Auto Diff [Complete Blood Count Auto Diff] Stat Lab 09/26/23 20:25 Completed CMP [Comprehensive Metabolic Panel] Stat Lab 09/26/23 20:25 Completed Full Resp Panel w/COVID ([facility]) Routine Lab 09/26/23 20:30 Completed Lactic Acid Stat Lab 09/26/23 20:25 Completed Magnesium Stat Lab 09/26/23 20:25 Completed Phosphorous Stat Lab 09/26/23 20:25 Completed Trop I [Troponin I] Stat Lab 09/26/23 20:25 Completed Troponin I Q3H Lab 09/26/23 23:30 Ordered Troponin I Q3H Lab 09/27/23 02:30 Ordered UA [Urinalysis and Microscopic] Stat Lab 09/26/23 20:45 Completed Blood Culture Stat Micro 09/26/23 20:38 Received ECG Data Tracing #1: I reviewed this ECG and interpreted as documented below: Ventricular of 68 normal sinus rhythm no acute ischemic changes noted normal axis no conduction abnormality Medical Decision Narrative: 67-year-old liver transplant recipient with above history and physical. He has right lower quadrant abdominal pain has had a cough for a few weeks is lightheaded and has significant dizziness. Differential includes dehydration, rejection, systemic infection such as bacteremia, appendicitis and other intra-abdominal pathology. Will get noncontrasted CT scan he has got known renal insufficiency with GFR less than 30. Broad workup has been initiated including metabolic abnormalities organ function testing IV fluids have been administered will reassess. Chest x-ray performed to person interpreted shows no acute cardiopulmonary emergency CT scan of the abdomen pelvis performed which I first interpreted shows no acute intra-abdominal emergency radiology read consistent with this as well Labs unremarkable other than slightly worsening chronic kidney disease which she is aware of and will follow-up with primary care doctor. No evidence of sepsis he feels much better after IV fluids. Hemoglobin slightly worse than his baseline but he is chronically anemic. Overall nothing warranting admission or emergent intervention at the moment. He does have 2 weeks of cough and given his immune suppressed status without consolidation we will treat for possible bacterial bronchitis but this is still most likely viral. He has been made aware of this we will err on the side of caution and give him antibiotics. He will follow-up with his primary care doctor he was discharged in improved and stable condition. Critical Care Critical Care Time Critical Care Time: Yes Attestation: On 09/26/23, the high probability of a clinically significant, sudden or life threatening deterioration of the following system(s) required my full and direct attention, intervention and personal management. The time I documented below is in addition to time spent performing reported procedures but includes the following listed in this critical care notation. Total Time Total Critical Care Time: 35
[2023-09-26 20:38] LABS: Adenovirus,PCR Not Detected (NotDetected); Bordetella Pertussis Not Detected (NotDetected); Chlamydophila Pneumoniae, PCR Not Detected (NotDetected); Coronavirus 19, PCR Not Detected (NotDetected); Coronavirus 229E Not Detected (NotDetected); Coronavirus NL63 Not Detected (NotDetected); Coronavirus OC43 Not Detected (NotDetected); Coronovirus HKU1,PCR Not Detected (NotDetected); Human Metapneumovirus Not Detected (NotDetected); Influenza A, PCR Not Detected (NotDetected); Influenza AH1, 2009 Not Detected (NotDetected); Influenza AH1, PCR Not Detected (NotDetected); Influenza AH3,PCR Not Detected (NotDetected); Influenza B, PCR Not Detected (NotDetected); Mycoplasma Pneumoniae, PCR Not Detected (NotDetected); Parainfluenza 1, PCR Not Detected (NotDetected); Parainfluenza 2, PCR Not Detected (NotDetected); Parainfluenza 3, PCR Not Detected (NotDetected); Parainfluenza 4, PCR Not Detected (NotDetected); Respiratory Syncytial Virus Not Detected (NotDetected); Rhinovirus/Enterovirus Not Detected (NotDetected)
[2023-09-26 20:39] LABS: Basophils % 0.5 % (0.1-2.0); Chloride 104 mmol/L (98-107); Eosinophils # 0.1 K/mm3 (0.0-0.4); Eosinophils % 2.7 % (0.1-12.0); Hematocrit 26.6 % (42.0-52.0); Hemoglobin 8.8 g/dL (14.1-18.0); Lymphocytes # 0.6 K/mm3 (0.7-4.5); Mean Corpuscular HGB Conc 33.2 g/dL (31.8-35.4); Mean Corpuscular Hemoglobin 29.7 pg (27.0-31.2); Mean Corpuscular Volume 89.4 fl (80-94); Mean Platelet Volume 9.5 fl (7.4-10.4); Monocytes # 0.3 K/mm3 (0.1-1.0); Monocytes % 6.1 % (1.7-9.3); Neutrophils # 4.2 K/mm3 (1.8-7.8); Neutrophils % 78.7 % (37.0-80.0); Platelet Count 174 K/mm3 (142-424); Red Blood Count 2.98 M/mm3 (4.60-6.20); Red Cell Distribution Width 13.8 % (11.5-17.5); White Blood Count 5.3 K/mm3 (4.8-10.8)
[2023-09-26 20:40] LABS: Potassium 4.1 mmoL/L (3.5-5.1); Sodium 136 mmol/L (136-145)
[2023-09-26 20:43] LABS: Alanine Aminotransferase 17 U/L (12-78); Albumin Level 3.7 g/dl (3.5-5.0); Albumin/Globulin Ratio 1.3 (1.1-1.8); Alkaline Phosphatase 97 U/L (38-126); Anion Gap 16.1 mEq/L (5-15); Aspartate Amino Transferase 27 U/L (17-59); Bilirubin,Total 0.6 mg/dl (0.2-1.3); Blood Urea Nitrogen 61 mg/dl (9-20); Calcium 8.7 mg/dl (8.4-10.2); Carbon Dioxide 20 mmol/L (22.0-30.0); Creatinine Clearance Estimated 27 mL/min (50-200); Estimated Glomerular Filt Rate 19 ml/min (>60); GFR (African American) 23 ML/MIN (>60); Globulin 2.9 g/dL (1.3-3.2); Glucose 145 mg/dl (74-100); Magnesium 1.7 mg/dl (1.6-2.3); Phosphorous 3.8 mg/dl (2.5-4.5); Total Protein,Serum 6.6 g/dl (6.3-8.2)
[2023-09-26 20:50] LABS: Microscopic, Urine URINE MICROSCOPIC (MICROSCOPIC)
[2023-09-26 20:53] LABS: Appearance,Urine CLEAR (Clear); Bilirubin,Urine Negative (Negative); Blood, Urine Negative (Negative); Color,Urine YELLOW (Yellow); Glucose,Urine (UA) Negative (Negative); Ketones,Urine Negative (Negative); Leukocyte Esterase,Urine Negative (Negative); Nitrate,Urine Negative (Negative); PH,Urine 5.5 (5.0-8.5); Protein,Urine Negative (Negative); Specific Gravity, Urine 1.015 (1.005-1.030); Urobilinogen,Urine 0.2 EU/dl (0.2)
[2023-09-26] MEDS: LACTATED RINGERS 1000ML 1,000 ML 999 ML IV (20:53)
[2023-09-26 20:55] VITALS: BP 136/80; PULSE 64; RESP 15; O2SAT 97
[2023-09-26 20:56] LABS: Troponin I < 0.01 ng/ml (0.00-0.034)
[2023-09-26 21:08] LABS: Bacteria,Urine Trace /lpf; WBC,Urine Occasional #/hpf (0-3)
[2023-09-26 21:31] VITALS: BP 171/89; PULSE 63; RESP 27; O2SAT 97
[2023-09-26 22:00] VITALS: BP 151/77; PULSE 65; RESP 19; O2SAT 99
[2023-09-26 23:13] VITALS: BP 152/75; PULSE 67; RESP 16; TEMP 36.7; O2SAT 99
--- NOTE | 2023-09-27 20:37 | ECG_ITS ---
APPROVED REPORT Exam: Resting ECG HR:68 bpm ECG Measurements Heart Rate 68 AXES WY 179 P 69 QRSd 92 QRS 24 QT 368 T 62 QTc 385 Conclusion SINUS RHYTHM NORMAL ECG Electronically signed by : LUZ ESPINOZA, 09/27/2023 07:06:00
--- NOTE | 2023-10-06 05:46 | PC.NURSE ---
final blood cx result no growth .
== END 2023-09-26 23:14 | disposition home or self-care (01) ==
PROVIDERS: Emergency Provider Student in an Organized Health Care Education/Training Program; PCP Internal Medicine
DX: R10.31 Right lower quadrant pain (principal); N18.9 Chronic kidney disease, unspecified; D84.9 Immunodeficiency, unspecified; J20.9 Acute bronchitis, unspecified; R42 Dizziness and giddiness; R53.1 Weakness; Z94.4 Liver transplant status; Z87.891 Personal history of nicotine dependence
CPT/HCPCS: 71045; 74176; 80053; 81001; 83605; 83735; 84100; 84484; 85025; 87040; 87581; 87632; 87635; 87798; 93005; 96360; 99285; 99291; J7120

== ENCOUNTER 2023-11-09 10:20 | Outpatient (CLI) | payer MEDICARE, MEDICAID, SELFPAY ==
[2023-11-09 10:32] LABS: Microscopic, Urine URINE MICROSCOPIC (MICROSCOPIC)
[2023-11-09 10:56] LABS: Basophils % 0.7 % (0.1-2.0); Eosinophils # 0.2 K/mm3 (0.0-0.4); Eosinophils % 3.8 % (0.1-12.0); Hematocrit 31.5 % (42.0-52.0); Hemoglobin 10.3 g/dL (14.1-18.0); Lymphocytes # 0.9 K/mm3 (0.7-4.5); Lymphocytes % 18.9 % (10-50); Mean Corpuscular HGB Conc 32.5 g/dL (31.8-35.4); Mean Corpuscular Volume 92.1 fl (80-94); Mean Platelet Volume 9.4 fl (7.4-10.4); Monocytes # 0.3 K/mm3 (0.1-1.0); Monocytes % 5.7 % (1.7-9.3); Neutrophils # 3.5 K/mm3 (1.8-7.8); Neutrophils % 70.9 % (37.0-80.0); Platelet Count 150 K/mm3 (142-424); Red Blood Count 3.42 M/mm3 (4.60-6.20); Red Cell Distribution Width 14.8 % (11.5-17.5); White Blood Count 4.9 K/mm3 (4.8-10.8)
[2023-11-09 11:02] LABS: Appearance,Urine CLEAR (Clear); Bilirubin,Urine Negative (Negative); Blood, Urine Negative (Negative); Color,Urine YELLOW (Yellow); Glucose,Urine (UA) Negative (Negative); Ketones,Urine Negative (Negative); Leukocyte Esterase,Urine Negative (Negative); Nitrate,Urine Negative (Negative); PH,Urine 5.5 (5.0-8.5); Protein,Urine Negative (Negative); Specific Gravity, Urine 1.015 (1.005-1.030); Urobilinogen,Urine 0.2 EU/dl (0.2)
--- NOTE | 2023-11-09 11:10 | CA_ITS ---
FINAL REPORT TECHNIQUE: Ultrasound images of the deep venous system were obtained from the left groin to the calf veins. CLINICAL HISTORY: LEFT LEG EDEMA X 2 YEARS SINCE LIVER TRANSPLANT,PT ON ASA,PAIN LLE FINDINGS: The deep venous system is normally compressible. Normal flow is identified. There is a 3.1 cm popliteal cyst. IMPRESSION: No evidence of left lower extremity DVT. Reviewed, Interpreted and Dictated by Bakari Perez MD Transcribed by Carmelina Martins Authenticated and [facility]
[2023-11-09 11:28] LABS: Bacteria,Urine Trace /lpf; RBC,Urine Occasional #/hpf (0-3); Squamous Epithelial Cell,Urine Occasional #/hpf (0-5)
[2023-11-09 11:34] LABS: Creatinine,Urine Random 52 mg/dL (Not Estab.); Microalbumin < 6.000 mg/L (0-16.7)
[2023-11-09 11:43] LABS: Albumin Level 3.8 g/dl (3.5-5.0); Chloride 109 mmol/L (98-107); Potassium 5.3 mmoL/L (3.5-5.1); Sodium 139 mmol/L (136-145)
[2023-11-09 11:46] LABS: Anion Gap 9.3 mEq/L (5-15); Blood Urea Nitrogen 43 mg/dl (9-20); Calcium 8.9 mg/dl (8.4-10.2); Carbon Dioxide 26 mmol/L (22.0-30.0); Estimated Glomerular Filt Rate 26 ml/min (>60); GFR (African American) 31 ML/MIN (>60); Glucose 110 mg/dl (74-100); Phosphorous 4.3 mg/dl (2.5-4.5)
[2023-11-09 12:51] LABS: Hemoglobin A1C 5.2 % (4.0-6.0)
== END 2023-11-09 23:59 | disposition home or self-care (01) ==
PROVIDERS: Nurse Practitioner; PCP Internal Medicine; Visit Provider Internal Medicine
DX: N18.32 Chronic kidney disease, stage 3b (principal); Z79.899 Other long term (current) drug therapy; M79.605 Pain in left leg
CPT/HCPCS: 36415; 80069; 81001; 82043; 82570; 83036; 84156; 85025; 93971

== ENCOUNTER 2024-01-30 13:04 | Outpatient (CLI) | payer MEDICARE, MEDICAID, SELFPAY ==
[2024-01-30 18:33] LABS: Basophils % 0.7 % (0.1-2.0); Eosinophils # 0.2 K/mm3 (0.0-0.4); Eosinophils % 3.6 % (0.1-12.0); Hematocrit 33.9 % (42.0-52.0); Hemoglobin 11.5 g/dL (14.1-18.0); Lymphocytes # 0.8 K/mm3 (0.7-4.5); Lymphocytes % 14.8 % (10-50); Mean Corpuscular Hemoglobin 30.6 pg (27.0-31.2); Mean Corpuscular Volume 89.9 fl (80-94); Mean Platelet Volume 11.1 fl (7.4-10.4); Monocytes # 0.4 K/mm3 (0.1-1.0); Monocytes % 6.7 % (1.7-9.3); Neutrophils # 4.1 K/mm3 (1.8-7.8); Neutrophils % 74.1 % (37.0-80.0); Platelet Count 171 K/mm3 (142-424); Red Blood Count 3.76 M/mm3 (4.60-6.20); Red Cell Distribution Width 13.8 % (11.5-17.5); White Blood Count 5.5 K/mm3 (4.8-10.8)
[2024-01-30 18:46] LABS: Alanine Aminotransferase 16 U/L (12-78); Albumin Level 4.2 g/dl (3.5-5.0); Albumin/Globulin Ratio 1.8 (1.1-1.8); Alkaline Phosphatase 98 U/L (38-126); Anion Gap 13.8 mEq/L (5-15); Aspartate Amino Transferase 24 U/L (17-59); Bilirubin,Total 0.7 mg/dl (0.2-1.3); Blood Urea Nitrogen 41 mg/dl (9-20); Calcium 9.4 mg/dl (8.4-10.2); Carbon Dioxide 22 mmol/L (22.0-30.0); Chloride 110 mmol/L (98-107); Chol/HDL Ratio 3.8 (1-3.5); Cholesterol 129 mg/dl (140-200); Estimated Glomerular Filt Rate 28 ml/min (>60); GFR (African American) 34 ML/MIN (>60); Globulin 2.4 g/dL (1.3-3.2); Glucose 100 mg/dl (74-100); HDL Cholesterol 34 mg/dl (40-60); Potassium 4.8 mmoL/L (3.5-5.1); Sodium 141 mmol/L (136-145); Total Protein,Serum 6.6 g/dl (6.3-8.2); Triglycerides 179 mg/dl (30-150); VLDL Cholesterol 36 mg/dL (0-40)
[2024-01-30 18:57] LABS: Direct LDL Cholesterol 55.02 mg/dL (100-129)
[2024-01-30 18:58] LABS: Creatinine,Urine Random 111 mg/dL (Not Estab.)
[2024-01-30 19:02] LABS: Microalbumin/Creatinine Ratio 6.9
== END 2024-01-30 23:59 | disposition home or self-care (01) ==
LOC: LAB.DROPOF 01-31 13:04
PROVIDERS: PCP Internal Medicine; Visit Provider Internal Medicine
DX: I10 Essential (primary) hypertension (principal); N18.9 Chronic kidney disease, unspecified; Z94.4 Liver transplant status; Z79.899 Other long term (current) drug therapy; R60.0 Localized edema; D64.9 Anemia, unspecified; D69.6 Thrombocytopenia, unspecified; B19.20 Unspecified viral hepatitis C without hepatic coma; E55.9 Vitamin D deficiency, unspecified; M81.0 Age-related osteoporosis without current pathological fracture
CPT/HCPCS: 80053; 80061; 82043; 82570; 85025

== ENCOUNTER 2024-02-21 09:20 | Outpatient (CLI) | payer MEDICARE, MEDICAID, SELFPAY ==
[2024-02-21 18:11] LABS: Basophils % 0.5 % (0.1-2.0); Eosinophils # 0.1 K/mm3 (0.0-0.4); Eosinophils % 3.2 % (0.1-12.0); Hematocrit 31.8 % (42.0-52.0); Hemoglobin 10.6 g/dL (14.1-18.0); Lymphocytes # 0.7 K/mm3 (0.7-4.5); Lymphocytes % 16.1 % (10-50); Mean Corpuscular HGB Conc 33.4 g/dL (31.8-35.4); Mean Corpuscular Hemoglobin 29.2 pg (27.0-31.2); Mean Corpuscular Volume 87.5 fl (80-94); Mean Platelet Volume 11.3 fl (7.4-10.4); Monocytes # 0.3 K/mm3 (0.1-1.0); Monocytes % 7.4 % (1.7-9.3); Neutrophils # 3.3 K/mm3 (1.8-7.8); Neutrophils % 72.8 % (37.0-80.0); Platelet Count 149 K/mm3 (142-424); Red Blood Count 3.64 M/mm3 (4.60-6.20); Red Cell Distribution Width 13.9 % (11.5-17.5); White Blood Count 4.6 K/mm3 (4.8-10.8)
[2024-02-21 18:31] LABS: Creatinine,Urine Random 52 mg/dL (Not Estab.)
[2024-02-21 18:32] LABS: Microalbumin < 6.000 mg/L (0-16.7)
[2024-02-21 18:41] LABS: Alanine Aminotransferase 13 U/L (12-78); Albumin Level 3.9 g/dl (3.5-5.0); Albumin/Globulin Ratio 2.1 (1.1-1.8); Alkaline Phosphatase 93 U/L (38-126); Anion Gap 13.4 mEq/L (5-15); Aspartate Amino Transferase 21 U/L (17-59); Bilirubin,Total 0.8 mg/dl (0.2-1.3); Blood Urea Nitrogen 51 mg/dl (9-20); Carbon Dioxide 23 mmol/L (22.0-30.0); Chloride 109 mmol/L (98-107); Estimated Glomerular Filt Rate 27 ml/min (>60); GFR (African American) 33 ML/MIN (>60); Globulin 1.9 g/dL (1.3-3.2); Glucose 89 mg/dl (74-100); Potassium 5.4 mmoL/L (3.5-5.1); Sodium 140 mmol/L (136-145); Total Protein,Serum 5.8 g/dl (6.3-8.2)
== END 2024-02-21 23:59 | disposition home or self-care (01) ==
LOC: LAB.DROPOF 02-22 07:12
PROVIDERS: PCP Internal Medicine; Visit Provider Internal Medicine
DX: Z94.4 Liver transplant status (principal); R73.03 Prediabetes; N28.9 Disorder of kidney and ureter, unspecified; Z79.899 Other long term (current) drug therapy
CPT/HCPCS: 80053; 82043; 82570; 85025

== ENCOUNTER 2024-03-18 12:46 | Outpatient (CLI) | payer MEDICARE, MEDICAID, SELFPAY ==
[2024-03-18 13:25] LABS: Hemoglobin 9.8 g/dL (14.1-18.0)
[2024-03-18 14:16] LABS: Chloride 110 mmol/L (98-107)
[2024-03-18 14:17] LABS: Albumin Level 3.8 g/dl (3.5-5.0); Potassium 4.6 mmoL/L (3.5-5.1); Sodium 143 mmol/L (136-145)
[2024-03-18 14:19] LABS: Blood Urea Nitrogen 57 mg/dl (9-20); Estimated Glomerular Filt Rate 26 ml/min (>60); GFR (African American) 31 ML/MIN (>60)
[2024-03-18 14:20] LABS: Alanine Aminotransferase 15 U/L (12-78); Alkaline Phosphatase 95 U/L (38-126); Anion Gap 12.6 mEq/L (5-15); Aspartate Amino Transferase 24 U/L (17-59); Bilirubin,Total 0.7 mg/dl (0.2-1.3); Calcium 8.7 mg/dl (8.4-10.2); Carbon Dioxide 25 mmol/L (22.0-30.0); Globulin 1.9 g/dL (1.3-3.2); Glucose 117 mg/dl (74-100); Magnesium 1.8 mg/dl (1.6-2.3); Total Protein,Serum 5.7 g/dl (6.3-8.2)
[2024-03-18 15:31] LABS: Gamma Glutamyl Transpeptidase 15 U/L (15-73)
[2024-03-21 18:08] LABS: Cyclosporine 236 ng/mL (100-400)
== END 2024-03-18 23:59 | disposition home or self-care (01) ==
LOC: LAB 12:49
PROVIDERS: PCP Internal Medicine; Visit Provider Transplant Surgery
DX: Z94.4 Liver transplant status (principal); Z79.899 Other long term (current) drug therapy
CPT/HCPCS: 36415; 80053; 80158; 82977; 83735; 85018

== ENCOUNTER 2024-04-24 08:59 | Outpatient (CLI) | payer MEDICARE, MEDICAID, SELFPAY ==
[2024-04-24 09:16] LABS: Hematocrit 29.4 % (42.0-52.0); Hemoglobin 9.5 g/dL (14.1-18.0); Mean Corpuscular HGB Conc 32.3 g/dL (31.8-35.4); Mean Corpuscular Hemoglobin 29.5 pg (27.0-31.2); Mean Corpuscular Volume 91.3 fl (80-94); Platelet Count 149 K/mm3 (142-424); Red Blood Count 3.22 M/mm3 (4.60-6.20); White Blood Count 5.4 K/mm3 (4.8-10.8)
[2024-04-24 09:58] LABS: Alanine Aminotransferase 16 U/L (12-78); Albumin/Globulin Ratio 2.1 (1.1-1.8); Alkaline Phosphatase 100 U/L (38-126); Anion Gap 11.5 mEq/L (5-15); Aspartate Amino Transferase 23 U/L (17-59); Bilirubin,Total 0.6 mg/dl (0.2-1.3); Blood Urea Nitrogen 43 mg/dl (9-20); Calcium 8.7 mg/dl (8.4-10.2); Carbon Dioxide 25 mmol/L (22.0-30.0); Chloride 109 mmol/L (98-107); Estimated Glomerular Filt Rate 28 ml/min (>60); GFR (African American) 34 ML/MIN (>60); Gamma Glutamyl Transpeptidase 17 U/L (15-73); Globulin 1.9 g/dL (1.3-3.2); Glucose 127 mg/dl (74-100); Magnesium 1.6 mg/dl (1.6-2.3); Potassium 4.5 mmoL/L (3.5-5.1); Sodium 141 mmol/L (136-145); Total Protein,Serum 5.9 g/dl (6.3-8.2)
[2024-04-27 16:29] LABS: Cyclosporine 150 ng/mL (100-400)
[2024-04-29 17:17] LABS: Tacrolimus (FK506), Blood < 0.5 ng/mL (2.0-20.0)
== END 2024-04-24 23:59 | disposition home or self-care (01) ==
LOC: LAB 09:01
PROVIDERS: PCP Internal Medicine; Visit Provider Transplant Surgery
DX: Z94.4 Liver transplant status (principal); Z79.899 Other long term (current) drug therapy
CPT/HCPCS: 36415; 80053; 80158; 80197; 82977; 83735; 85027

== ENCOUNTER 2024-06-04 13:33 | Outpatient (CLI) | payer MEDICARE, MEDICAID, SELFPAY ==
--- NOTE | 2024-06-04 13:36 | CA_ITS ---
APPROVED REPORT EXAM: Comprehensive 2D, Doppler, and color-flow Echocardiogram Entry Rep: Eunice Hansen RT(R) Ht: 5 ft 11 in Wt: 206lbs BSA: 2.13 BP: 150/87 mmHg Indications: edema, HTN, ex smoker, LOPEZ, CAD, Hep C, cirrhosis, CKD III 2D Dimensions LVEF (Thornton's) 63.20 % M: 52 - 72 LV Volume 109.70 mL M: 62 - 150 LV Volume Index 51.3 mL/m2 M: 34 - 74 LA Volume 56.20 mL LA Volume Index 26.26 mL/m2 (M/F) 16-34 EF AP4 64.00 % EF AP2 64.6 % EF BP 63.2 % GL Strain -20.8 % M-Mode Dimensions RVDd 3.45 cm (0.9-2.6) LA Diam 3.87 cm (1.9-4.0) LVDd 4.42 cm (3.5-5.7) LVDs 3.37 cm (3.5-5.7) IVSd 0.88 cm (0.6-1.1) PWd 1.28 cm (0.6-1.1) EF (Teich) 47.60% FS 23.80% EDV (Teich) 88.60 mL ESV (Teich) 46.40 mL LV Diastology E Decel Time 187 (160-240 msec) E/A Ratio 1.07 Mitral Valve MV A Velocity 93.0 (40-130 cm/s) E/A Ratio 1.07 Left Ventricle The left ventricle is normal size. The left ventricular systolic function is normal. The left ventricular ejection fraction is within the normal range. There is increased LV wall thickness. There is normal LV segmental wall motion. The left ventricular diastolic function is normal. LVEF is 55%. Right Ventricle The right ventricle is normal size. The right ventricular systolic function is normal. Atria Left atrium is mildly dilated. The right atrium size is normal. There is no Doppler evidence of interatrial shunt. Aortic Valve The aortic valve is mildly thickened. There is no aortic valvular stenosis. No aortic regurgitation is present. Mitral Valve The mitral valve is normal in structure. No evidence of mitral valve stenosis. Trace mitral regurgitation. Tricuspid Valve Tricuspid valve is grossly normal in structure and function. Mild tricuspid regurgitation. RVSP is 20-25 mmHg. Pulmonic Valve The pulmonary valve is normal in structure. Trace pulmonic regurgitation. Great Vessels The aortic root is normal in size. IVC is normal in size and collapses >50% with inspiration. Pericardium There is no pericardial effusion. Other Information Study Quality: Fair Conclusion Normal biventricular systolic function. Mild LA dilation. Mild TR. Electronically signed by : Jessica Covington MD 06/10/2024 00:49:02
== END 2024-06-04 23:59 | disposition home or self-care (01) ==
LOC: RT 13:34
PROVIDERS: PCP Internal Medicine; Visit Provider Physician Assistant
DX: I51.7 Cardiomegaly (principal); I36.1 Nonrheumatic tricuspid (valve) insufficiency; I25.10 Atherosclerotic heart disease of native coronary artery without angina pectoris; R60.9 Edema, unspecified
CPT/HCPCS: 93306

== ENCOUNTER 2024-06-06 12:17 | Outpatient (CLI) | payer MEDICARE, MEDICAID, SELFPAY ==
[2024-06-06 13:57] LABS: Anion Gap 8.3 mEq/L (5-15); Blood Urea Nitrogen 28 mg/dl (9-20); Carbon Dioxide 28 mmol/L (22.0-30.0); Chloride 107 mmol/L (98-107); Estimated Glomerular Filt Rate 31 ml/min (>60); GFR (African American) 38 ML/MIN (>60); Glucose 105 mg/dl (74-100); Potassium 4.3 mmoL/L (3.5-5.1); Sodium 139 mmol/L (136-145)
== END 2024-06-06 23:59 | disposition home or self-care (01) ==
LOC: LAB 12:18
PROVIDERS: PCP Internal Medicine; Visit Provider Physician Assistant
DX: N18.32 Chronic kidney disease, stage 3b (principal); I25.10 Atherosclerotic heart disease of native coronary artery without angina pectoris
CPT/HCPCS: 36415; 80048

== ENCOUNTER 2024-07-03 08:38 | Outpatient (CLI) | payer MEDICARE, MEDICAID, SELFPAY ==
[2024-07-03 09:50] LABS: Microscopic, Urine URINE MICROSCOPIC (MICROSCOPIC)
[2024-07-03 10:11] LABS: Hematocrit 31.6 % (42.0-52.0); Hemoglobin 10.7 g/dL (14.1-18.0); Mean Corpuscular HGB Conc 33.9 g/dL (31.8-35.4); Mean Corpuscular Hemoglobin 30.2 pg (27.0-31.2); Mean Corpuscular Volume 89.3 fl (80-94); Platelet Count 168 K/mm3 (142-424); Red Blood Count 3.54 M/mm3 (4.60-6.20); Red Cell Distribution Width 11.8 % (11.5-17.5); White Blood Count 6.9 K/mm3 (4.8-10.8)
[2024-07-03 10:18] LABS: Appearance,Urine CLEAR (Clear); Bilirubin,Urine Negative (Negative); Blood, Urine Negative (Negative); Color,Urine YELLOW (Yellow); Glucose,Urine (UA) Negative (Negative); Ketones,Urine Negative (Negative); Leukocyte Esterase,Urine Negative (Negative); Nitrate,Urine Negative (Negative); Protein,Urine Negative (Negative); Urobilinogen,Urine 0.2 EU/dl (0.2)
[2024-07-03 10:27] LABS: Creatinine,Urine Random 69 mg/dL (Not Estab.)
[2024-07-03 10:31] LABS: Microalbumin/Creatinine Ratio 10.1
[2024-07-03 10:34] LABS: Albumin Level 4.5 g/dl (3.5-5.0); Chloride 104 mmol/L (98-107)
[2024-07-03 10:35] LABS: Potassium 4.9 mmoL/L (3.5-5.1); Sodium 142 mmol/L (136-145)
[2024-07-03 10:36] LABS: Squamous Epithelial Cell,Urine Occasional #/hpf (0-5)
[2024-07-03 10:37] LABS: Alanine Aminotransferase 16 U/L (12-78); Albumin/Globulin Ratio 2.5 (1.1-1.8); Anion Gap 12.9 mEq/L (5-15); Aspartate Amino Transferase 22 U/L (17-59); Blood Urea Nitrogen 31 mg/dl (9-20); Carbon Dioxide 30 mmol/L (22.0-30.0); Estimated Glomerular Filt Rate 27 ml/min (>60); GFR (African American) 33 ML/MIN (>60); Globulin 1.8 g/dL (1.3-3.2); Total Protein,Serum 6.3 g/dl (6.3-8.2)
[2024-07-03 10:38] LABS: Alkaline Phosphatase 109 U/L (38-126); Bilirubin,Total 0.6 mg/dl (0.2-1.3); Calcium 9.6 mg/dl (8.4-10.2); Glucose 110 mg/dl (74-100); Magnesium 1.8 mg/dl (1.6-2.3)
[2024-07-03 11:08] LABS: Gamma Glutamyl Transpeptidase 20 U/L (15-73)
[2024-07-03 12:18] LABS: Hemoglobin A1C 5.7 % (4.0-6.0)
[2024-07-07 18:10] LABS: Cyclosporine 25 ng/mL (100-400)
== END 2024-07-03 23:59 | disposition home or self-care (01) ==
PROVIDERS: Transplant Surgery; PCP Internal Medicine; Visit Provider Nurse Practitioner
DX: N18.32 Chronic kidney disease, stage 3b (principal); Z94.4 Liver transplant status; Z79.899 Other long term (current) drug therapy
CPT/HCPCS: 36415; 80053; 80158; 81001; 82043; 82570; 82977; 83036; 83735; 84156; 85027

== ENCOUNTER 2024-07-31 07:07 | Outpatient (CLI) | payer MEDICARE, MEDICAID, SELFPAY ==
--- NOTE | 2024-07-31 07:30 | CT_ITS ---
FINAL REPORT TECHNIQUE: Thin section axial images were obtained through the lungs using a low-dose technique per lung cancer screening protocol. Reconstruction images were obtained using the axial data. This study was performed with techniques to keep radiation doses as low as reasonably achievable, (ALARA). Individualized dose reduction techniques using automated exposure control or adjustment of mA and/or kV according to the patient's size were employed. CLINICAL HISTORY: Lung cancer screening Former smoker quit 3 years ago. 3 ppd x 40 years COMPARISON: CT abdomen and pelvis dated 09/08/2022 FINDINGS: CTDLvol: 2.90 DLP: 112.29 Lungs: The lungs are clear. There are no suspicious nodules or masses. There is no consolidation. Lymph nodes: No thoracic lymphadenopathy. Mediastinum: Heart size is normal. There are prominent coronary artery calcifications. Pleura/pericardium: There is no pleural effusion. There is a small pericardial effusion. Upper abdomen: There is a 27 mm right adrenal nodule, which is unchanged since the prior CT abdomen and pelvis from 2022. IMPRESSION: No suspicious pulmonary nodule or mass. Prominent coronary artery calcifications. Stable adrenal nodule. Lung RADS: 1S Recommendation: 12-month follow-up Reviewed, Interpreted and Dictated by Rachana Lemon MD Transcribed by Angela Neri Authenticated and [facility]
== END 2024-07-31 23:59 | disposition home or self-care (01) ==
LOC: RAD 07:08
PROVIDERS: PCP Family Medicine; Visit Provider Family Medicine
DX: Z87.891 Personal history of nicotine dependence (principal)
CPT/HCPCS: 71271

== ENCOUNTER 2024-12-11 09:31 | Outpatient (CLI) | payer MEDICARE, MEDICAID, SELFPAY ==
--- OUTSIDE RECORDS SUMMARY | 2024-12-11 09:35 | XMS_ITS | Encounter Summary ---
Author Organization [facility] Address [address] [place] [address] Care Team Providers Care Cotton Inspector Name Role Phone Ced Al MD Primary Care Provider + [phone] Sylvia De La Torre RN Unavailable [phone] Nyasia Moses Unavailable [phone] Wolf Dubose MD Unavailable [phone] Donovan Zaragoza APRN Unavailable [phone] Mendoza Johnson DO Primary Care Provider [phone] Encounter Details Date Type Department Care Team (Late st Contact Info) Description 07/08/2021 Lab Requisition [facility] [address] [place] [address] Will Bermudez MD [address] [facility] [address] [place] [address] Liver transplant status (CMS/HCC) Social History Tobacco Use Types Packs/Day Years Used Date Smoking Tobacco: Former Cigarettes 2 30 0 09/07/1990 - 09/07/2020 Smokeless Tobacco: Never Alcohol Use Standard Drinks/Week Comments Not Currently 0 (1 standard drink = 0.6 oz pure alcohol) reports quitting 35yrs ago and prior to that drinking very heavy Sex and Gender Information Value Date Recorded Sex Assigned at Not on file Legal Sex Male 7:07 PM EDT Gender Identity Not on file Sexual Orientation Not on file COVID-19 Exposure Response Date Recorded In the last month, have you been in contact with someone who was confirmed or suspected to have Coronavirus / COVID-19? No / Unsure 06/08/2021 8:10 AM EST documented as of this encounter Functional Status * Are you deaf or do you have serious difficulty hearing? Answer Date of Assessment Author No 10/17/2020 3:33 PM EDT Carla Mandujano RN * Are you blind or do you have serious difficulty seeing, even when wearing glasses? Answer Date of Assessment Author No 10/17/2020 3:33 PM EDT Carla Mandujano RN * Do you have serious difficulty walking or climbing stairs? Answer Date of Assessment Author No 10/17/2020 3:33 PM EDT Carla Mandujano RN * Do you have serious difficulty dressing or bathing? Answer Date of Assessment Author No 10/17/2020 3:33 PM EDT Carla Mandujano RN * Because of a physical, mental, or emotional condition, do you have serious difficulty doing errandsalone such as visiting the doctor? Answer Date of Assessment Author No 10/17/2020 3:33 PM EDT Carla Mandujano RN documented as of this encounter Mental Status * Because of a physical, mental, or emotional condition, do you have serious difficulty concentrating, remembering, or making decisions? (5 years old or older) Answer Entry Date Author No 10/17/2020 3:33 PM EDT Carla Mandujano RN documented in this encounter Plan of Treatment Not on file documented as of this encounter Procedures Procedure Name Priority Date/Time Associated Diagnosis Comments CYCLOSPORINE LEVEL Routine 07/08/2021 1: 35 PM EDT Liver transplant status (CMS/HCC) documented in this encounter Results * (ABNORMAL) Cyclosporine (07/08/2021 1:35 PM EDT) Cyclosporine 87(L) 100 - 400 ng/mL 07/09/2021 12:59 PM EDT [facility] Comment: Cyclosporine therapeutic range: Kidney transplant................... 100-200 ng/mL Heart transplant.................... 100-300 ng/mL Liver transplant.................... 100-300 ng/mL Lung;heart/lung transplant.......... 100-350 ng/mL Test performed by LC-MS/MS at the [facility]. This test was developed and its performance characteristics determined by [facility]. It has not been cleared or approved by the FDA. The laboratory is regulated under CLIA as qualified to perform high-complexity testing. This test is used for clinical purposes. Blood Venous blood specimen / Unknown 07/08/2021 1:35 PM EDT 07/08/2021 4:54 PM EDT us Will Bermudez MD LAB BLOOD ORDERABLES Final Res ult [facility] [address] [place] [address] documented in this encounter Visit Diagnoses Diagnosis Liver transplant status (CMS/HCC) documented in this encounter Additional Health Concerns Assessment Noted Time A fall risk assessment has been complete d for the patient 06/08/2021 8:58 AM EST A Body Mass Index follow-up plan has been documented for the patient 05/05/2022 10:19 AM EST documented as of this encounter Care Teams Cotton Inspector Relationship Specialty Start Date End Date Ced Al MD [address] [place] [address] PCP - General 08/20/20 11/18/23 Mendoza Johnson DO [address] [place] [address] PCP - General 11/19/23 Sylvia De La Torre RN [facility]MINISTRATION [address] [place] [address] Surgical Navigator Transplant Surgery 01/11/21 [place] [address] Surgical Navigator Transplant Surgery 01/11/21 Wolf Dubose MD [address] [place] [address] Surgeon Transplant Surgery 01/11/21 Donovan Zaragoza APRN [address] [place] [address] Referring Physician Transplant Surgery 01/11/21 documented as of this encounter
--- OUTSIDE RECORDS SUMMARY | 2024-12-11 09:35 | XMS_ITS | Encounter Summary ---
Author Organization [facility] Address [address] [place] [address] Care Team Providers Care Vp Strategy Name Role Phone Ced Al MD Primary Care Provider + [phone] Sylvia De La Torre RN Unavailable [phone] Nyasia Moses Unavailable [phone] Wolf Dubose MD Unavailable [phone] Donovan Zaragoza APRN Unavailable [phone] Mendoza Johnson DO Primary Care Provider [phone] Encounter Details Date Type Department Care Team (Late st Contact Info) Description 02/21/2021 Lab Requisition [facility] [address] [place] [address] Karla Kate, FINANCIAL SERVICE REP [address] [facility] [address] [place] [address] Liver transplant status (CMS/HCC) Social History Tobacco [...] have Coronavirus / COVID-19? No / Unsure 02/16/2021 7:09 AM EST documented as of this encounter [...] Date/Time Associated Diagnosis Comments CYCLOSPORINE LEVEL Routine 02/21/2021 10 :47 AM EST Liver transplant status (CMS/HCC) documented in this encounter Results * Cyclosporine (02/21/2021 10:47 AM EST) Cyclosporine 309 100 - 400 ng/mL 02/22/2021 1:44 PM EST [facility] Comment: Cyclosporine therapeutic range: Kidney transplant................... 100-200 ng/mL Heart transplant.................... 100-300 ng/mL Liver transplant.................... 100-300 ng/mL Lung;heart/lung transplant.......... 100-350 ng/mL Test performed by LC-MS/MS at the [facility]. This test was developed and its performance characteristics determined by [facility]. It has not been cleared or approved by the FDA. The laboratory is regulated under CLIA as qualified to perform high-complexity testing. This test is used for clinical purposes. Blood Venous blood specimen / Unknown 02/21/2021 10:47 AM EST 02/21/2021 4:16 PM EST us Karla Kate FINANCIAL SERVICE REP LAB BLOOD ORDERABLES Final R esult [facility] [address] [place] [address] documented in this encounter Visit Diagnoses Diagnosis Liver transplant status (CMS/HCC) documented in this encounter Additional Health Concerns Assessment Noted Time A fall risk assessment has been complete d for the patient 02/16/2021 9:03 AM EST documented as of this encounter Care Teams Vp Strategy Relationship Specialty Start Date End Date Ced Al MD [address] [place] [address] PCP - General 08/20/20 11/18/23 Mendoza Johnson DO [address] [place], [place] [id number] PCP - General 11/19/23 Sylvia De La Torre RN [facility]TR[facility]PLANT ADMINISTRATION [address] [place] [address] Surgical Navigator Transplant Surgery 01/11/21 [place] [address] Surgical Navigator Transplant Surgery 01/11/21 Wolf Dubose MD [address] [place] [address] Surgeon Transplant Surgery 01/11/21 Donovan Zaragoza APRN [address] [place] [address] Referring Physician Transplant Surgery 01/11/21 documented as of this encounter
--- OUTSIDE RECORDS SUMMARY | 2024-12-11 09:35 | XMS_ITS ---
Author Organization [facility] Address [address] 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 Donor Information Organ ABO Source Meets Risk Criteria HLA Match Mismatches Cross Match Liver Transplanted A1 DBD No A: B: DR: Liver Donor Serology Results Anti-CMV CMV IgG: Negative EBV IgG EBV VCA IgG: Negative Anti-HBcAb HBC Total: Negative HBsAg HBsAg: Negative HBV DNA HBV BRITNI: Negative Anti-HCV HCV: Negative Anti-HIV I/II HIV-1: Negative Anti-HTLV I/II HTLV: Not Done RPR/VDRL RPR: Negative EBV IgM EBV VCA IgM: Negative HBsAb HBsAb: Not Done EBNA No results on file SARS CoV-2 No results on file Care Team Name Role Phone Fax Email Chichi Babb RN Liver Coordinator [phone] N/A N /A Wolf Dubose MD Surgeon [phone] N/A LAUREL RiderW Charge Manager [phone] N/A N/A Shona Guerrero APRN Referring Physician [phone] N/A Ced Al MD Primary Care Provider [phone] N/A Will Bermudez MD Transplant Physician [phone] N/A Events Post-Transplant Pre-Transplant Admitted: 11/16/2020 Referred: 09/20/2020 Transplanted: 11/21/2020 Evaluation began: Discharged: 12/15/2020 Committee: 10/18/2020 Center waitlisted: 1
--- OUTSIDE RECORDS SUMMARY | 2024-12-11 09:35 | XMS_ITS | Encounter Summary ---
Author Organization [facility] Address [address] [place] [address] Care Team Providers Care Gelatin Powder Mixer Name Role Phone Ced Al MD Primary Care Provider + [phone] Sylvia De La Torre RN Unavailable [phone] Nyasia Moses Unavailable [phone] Wolf Dubose MD Unavailable [phone] Donovan Zaragoza APRN Unavailable [phone] Mendoza Johnson DO Primary Care Provider [phone] Encounter Details Date Type Department Care Team (Late st Contact Info) Description 03/28/2021 Lab Requisition [facility] [address] [place] [address] Karla Kate, ROLL FORMING MACHINE OPERATOR [address] [facility] [address] [place] [address] Liver transplant status (CMS/HCC); Other care home (current) drug therapy Social History Tobacco Use Types Packs/Day Years [...] have Coronavirus / COVID-19? 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 100-200 ng/mL Heart transplant.................... 100-300 ng/mL Liver transplant.................... 100-300 ng/mL Lung;heart/lung transplant.......... 100-350 ng/mL Test performed by LC-MS/MS at the [facility]. This test was developed and its performance characteristics determined by [facility]. It has not been cleared or approved by the FDA. The laboratory is regulated under CLIA as qualified to perform high-complexity testing. This test is used for clinical purposes. Blood Venous blood specimen / Unknown 03/28/2021 10:26 AM EST 03/28/2021 1:41 PM EST Karla Kate APRN LAB BLOOD ORDERABLES Final R esult [facility] [address] [place] [address] documented in this encounter Visit Diagnoses Diagnosis Liver transplant status (CMS/HCC) Other care home (current) drug therapy documented in this encounter Additional Health Concerns Assessment Noted Time A fall risk assessment has been complete d for the patient 03/08/2021 8:05 AM EST documented as of this encounter Care Teams Gelatin Powder Mixer Relationship Specialty Start Date End Date Ced Al MD [address] [place] [address] PCP - General 08/20/20 11/18/23 Mendoza Johnson DO [address] [place] [address] PCP - General 11/19/23 Sylvia De La Torre RN [facility]ISTR[facility] [address] [place] [address] Surgical Navigator Transplant Surgery 01/11/21 Nyasia Moses [place] [id number] Surgical Navigator Transplant Surgery 01/11/21 Wolf Dubose MD [address] [place] [address] Surgeon Transplant Surgery 01/11/21 Donovan Zaragoza APRN [address] [place] [address] Referring Physician Transplant Surgery 01/11/21 documented as of this encounter
--- OUTSIDE RECORDS SUMMARY | 2024-12-11 09:36 | XMS_ITS | Encounter Summary ---
Author Organization [facility] Address [address] [place] [address] Care Team Providers Care Liquified Natural Gas Specialist Name Role Phone Ced Al MD Primary Care Provider + [phone] Sylvia De La Torre RN Unavailable [phone] Nyasia Moses Unavailable [phone] Wolf Dubose MD Unavailable [phone] Donovan Zaragoza APRN Unavailable [phone] Mendoza Johnson DO Primary Care Provider [phone] Encounter Details Date Type Department Care Team (Late st Contact Info) Description 10/19/2021 Lab Requisition [facility] [address] [place] [address] Will Bermudez MD [address] [facility] [address] [place] [address] Liver transplant status (CMS/HCC); 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 Social History Tobacco Use [...] on file Sexual Orientation Not on file documented as of this encounter Functional Status [...] Entry Date Author No 10/17/2020 3:33 PM YANETT Carla Mandujano RN documented in this encounter Plan of Treatment Not on file documented as of this encounter Procedures Procedure Name Priority Date/Time Associated Diagnosis Comments CYCLOSPORINE LEVEL Routine 10/18/2021 9: 30 AM EDT Liver transplant status (CMS/HCC) Other penitentiary (current) drug therapy documented in this encounter Results * (ABNORMAL) Cyclosporine (10/18/2021 9:30 AM EDT) Cyclosporine 841(HH) 100 - 400 ng/mL 10/20/2021 12:49 PM EDT [facility] Comment: Cyclosporine therapeutic range: Kidney transplant................... 100-200 ng/mL Heart transplant.................... 100-300 ng/mL Liver transplant.................... 100-300 ng/mL Lung;heart/lung transplant.......... 100-350 ng/mL Test performed by LC-MS/MS at the [facility]. This test was developed and its performance characteristics determined by [facility]. It has not been cleared or approved by the FDA. The laboratory is regulated under CLIA as qualified to perform high-complexity testing. This test is used for clinical purposes. 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 documented in this encounter Additional Health Concerns Assessment Noted Time A fall risk assessment has been complete d for the patient 06/08/2021 8:58 AM EST A Body Mass Index follow-up plan has been documented for the patient 05/05/2022 10:19 AM EST documented as of this encounter Care Teams Liquified Natural Gas Specialist Relationship Specialty Start Date End Date Ced Al MD [address] [place] [address] PCP - General 08/20/20 11/18/23 Mendoza Johnson DO [address] [place] [address] PCP - General 11/19/23 Sylvia De La Torre RN [facility]TR[facility]PLANT ADMINISTRATION [address] [place] [address] Surgical Navigator Transplant Surgery 01/11/21 [place] [address] Surgical Navigator Transplant Surgery 01/11/21 Wolf Dubose MD [address] [place] [address] Surgeon Transplant Surgery 01/11/21 Donovan Zaragoza APRN [address] [place] [address] Referring Physician Transplant Surgery 01/11/21 documented as of this encounter
--- OUTSIDE RECORDS SUMMARY | 2024-12-11 09:36 | XMS_ITS | Encounter Summary ---
Author Organization [facility] Address [address] [place] [address] Care Team Providers Care Horseshoer Name Role Phone Ced Al MD Primary Care Provider + [phone] Sylvia De La Torre RN Unavailable [phone] Nyasia Moses Unavailable [phone] Wolf Dubose MD Unavailable [phone] Donovan Zaragoza APRN Unavailable [phone] Mendoza Johnson DO Primary Care Provider [phone] Encounter Details Date Type Department Care Team (Late st Contact Info) Description 12/06/2022 Orders Only External Location [address] [place] [address] Ced Al MD [address] [place] [address] Social History Tobacco Use Types Packs/Day Years Used Date Smoking Tobacco: Former Cigarettes 2 30 0 09/07/1990 - 09/07/2020 Passive Smoke Exposure: Past Smokeless Tobacco: Never Alcohol Use Standard Drinks/Week Comments Not Currently 0 (1 standard drink = 0.6 oz pure alcohol) reports quitting 35yrs ago and prior to that drinking very heavy PHQ-2 Answer Date Recorded Patient Health Questionnaire-2 Score 0 11/14/2022 PHQ-2A Answer Date Recorded Patient Health Questionnaire-2 Score 0 11/14/2022 Sex and Gender Information Value Date Recorded [...] Procedure Name Priority Date/Time Associated Diagnosis Comments MR OUTSIDE IMAGES 12/06/2022 3:26 PM EDT documented in this encounter Results * MR transfer of outside films (12/06/2022 3:26 PM EDT) Anatomical Region Laterality Modality Magnetic Resonan ce 12/06/2022 3:26 PM EDT Ced Al MD IMG MRI PROCEDURES Final Res ult documented in this encounter Visit Diagnoses Not on filedocumented in this encounter Additional Health Concerns Assessment Noted Time A fall risk assessment has been complete d for the patient 11/14/2022 10:14 AM EDT A Body Mass Index follow-up plan has been documented for the patient 11/14/2022 11:03 AM EDT documented as of this encounter Care Teams Horseshoer Relationship Specialty Start Date End Date Ced Al MD [address] [place] [address] PCP - General 08/20/20 11/18/23 Mendoza Johnson DO [address] [place] [address] PCP - General 11/19/23 Sylvia De La Torre, FREDA [facility]TRANSPLANT ADMINISTRATION [address] [place] [address] Surgical Navigator Transplant Surgery 01/11/21 [place] [address] Surgical Navigator Transplant Surgery 01/11/21 Wolf Dubose MD [address] [address] Surgeon Transplant Surgery 01/11/21 Donovan Zaragoza APRN [address] [place] [address] Referring Physician Transplant Surgery 01/11/21 documented as of this encounter
--- OUTSIDE RECORDS SUMMARY | 2024-12-11 09:36 | XMS_ITS | Encounter Summary ---
Author Organization [facility] Address [address] [place] [address] Care Team Providers Care Snuff Packing Machine Operator Name Role Phone Ced Al MD Primary Care Provider + [phone] Sylvia De La Torre RN Unavailable [phone] Nyasia Moses Unavailable [phone] Wolf Dubose MD Unavailable [phone] Donovan Zaragoza APRN Unavailable [phone] Mendoza Johnson DO Primary Care Provider [phone] Encounter Details Date Type Department Care Team (Late st Contact Info) Description 06/14/2022 Lab Requisition [facility] [address] [place] [address] Will Bermudez MD [address] [facility] [address] [place] [address] Liver transplant status (CMS/HCC) Social History Tobacco [...] Entry Date Author No 10/17/2020 3:33 PM Carla Buck RN documented in this encounter Plan of Treatment Not on file documented as of this encounter Procedures Procedure Name Priority Date/Time Associated Diagnosis Comments CYCLOSPORINE LEVEL Routine 06/14/2022 9: 36 AM EST Liver transplant status (CMS/HCC) documented in this encounter Results * Cyclosporine (06/14/2022 9:36 AM EST) Cyclosporine 119 100 - 400 ng/mL 06/15/2022 1:36 PM [facility]: Cyclosporine therapeutic range: Kidney transplant................... 100-200 ng/mL Heart transplant.................... 100-300 ng/mL Liver transplant.................... 100-300 ng/mL Lung;heart/lung transplant.......... 100-350 ng/mL Test performed by LC-MS/MS at the [facility]. This test was developed and its performance characteristics determined by [facility]. It has not been cleared or approved by the FDA. The laboratory is regulated under CLIA as qualified to perform high-complexity testing. This test is used for clinical purposes. Blood Venous blood specimen / Unknown 06/14/2022 9:36 AM EST 06/14/2022 1:05 PM EST us Will Bermudez MD LAB BLOOD ORDERABLES Final Res ult [facility] [address] [place] [address] documented in this encounter Visit Diagnoses Diagnosis Liver transplant status (CMS/HCC) documented in this encounter Additional Health Concerns Assessment Noted Time A fall risk assessment has been complete d for the patient 12/09/2021 7:36 AM EDT A Body Mass Index follow-up plan has been documented for the patient 05/05/2022 10:19 AM EST documented as of this encounter Care Teams Snuff Packing Machine Operator Relationship Specialty Start Date End Date Ced Al MD [address] [place] [address] PCP - General 08/20/20 11/18/23 Mendoza Johnson DO [address] [place] [address] PCP - General 11/19/23 Sylvia De La Torre RN [facility]TRANSPLANT ADMINISTRATION [address] [place] [address] Surgical Navigator Transplant Surgery 01/11/21 Nyasia Moses [place] [id number] Surgical Navigator Transplant Surgery 01/11/21 Wolf Dubose MD [address] [address] Surgeon Transplant Surgery 01/11/21 Donovan Zaragoza APRN [address] [place] [address] Referring Physician Transplant Surgery 01/11/21 documented as of this encounter
--- OUTSIDE RECORDS SUMMARY | 2024-12-11 09:36 | XMS_ITS | Encounter Summary ---
Author Organization [facility] Address [address] [place] [address] Care Team Providers Care Marine Geologist Name Role Phone Ced Al MD Primary Care Provider + [phone] Sylvia De La Torre RN Unavailable [phone] Nyasia Moses Unavailable [phone] Wolf Dubose MD Unavailable [phone] Donovan Zaragoza APRN Unavailable [phone] Mendoza Johnson DO Primary Care Provider [phone] Encounter Details Date Type Department Care Team (Late st Contact Info) Description 11/09/2021 Lab Requisition [facility] [address] [place] [address] Karla Kate, CHEMISTRY INSTRUCTOR [address] [facility] [address] [place] [address] Liver transplant status (CMS/HCC) Social History Tobacco [...] Date/Time Associated Diagnosis Comments CYCLOSPORINE LEVEL Routine 11/09/2021 9: 20 AM EDT Liver transplant status (CMS/HCC) documented in this encounter Results * (ABNORMAL) Cyclosporine (11/09/2021 9:20 AM EDT) Cyclosporine 83(L) 100 - 400 ng/mL 11/10/2021 12:31 PM EDT [facility] Comment: Cyclosporine therapeutic range: Kidney transplant................... 100-200 ng/mL Heart transplant.................... 100-300 ng/mL Liver transplant.................... 100-300 ng/mL Lung;heart/lung transplant.......... 100-350 ng/mL Test performed by LC-MS/MS at the [facility]. This test was developed and its performance characteristics determined by [facility]. It has not been cleared or approved by the FDA. The laboratory is regulated under CLIA as qualified to perform high-complexity testing. This test is used for clinical purposes. Blood Venous blood specimen / Unknown 11/09/2021 9:20 AM EDT 11/09/2021 7:18 PM EDT us Karla Kate APRN LAB BLOOD ORDERABLES Final R esult [facility] [address] [place] [address] documented in this encounter Visit Diagnoses Diagnosis Liver transplant status (CMS/HCC) documented in this encounter Additional Health Concerns Assessment Noted Time A fall risk assessment has been complete d for the patient 06/08/2021 8:58 AM EST A Body Mass Index follow-up plan has been documented for the patient 05/05/2022 10:19 AM EST documented as of this encounter Care Teams Marine Geologist Relationship Specialty Start Date End Date Ced Al MD [address] [place] [address] PCP - General 08/20/20 11/18/23 Mendoza Johnson DO [address] [place] [address] PCP - General 11/19/23 Sylvia De La Torre RN [facility]PLANT ADMINISTRATION [address] [place] [address] Surgical Navigator Transplant Surgery 01/11/21 [place] [address] Surgical Navigator Transplant Surgery 01/11/21 Wolf Dubose MD [address] [place] [address] Surgeon Transplant Surgery 01/11/21 Donovan Zaragoza APRN [address] [place] [address] Referring Physician Transplant Surgery 01/11/21 documented as of this encounter
--- OUTSIDE RECORDS SUMMARY | 2024-12-11 09:36 | XMS_ITS | Encounter Summary ---
Author Organization [facility] Address [address] [place] [address] Care Team Providers Care Supervisor Rework Name Role Phone Ced Al MD Primary Care Provider + [phone] Sylvia De La Torre RN Unavailable [phone] Nyasia Moses Unavailable [phone] Wolf Dubose MD Unavailable [phone] Donovan Zaragoza APRN Unavailable [phone] Mendoza Johnson DO Primary Care Provider [phone] Encounter Details Date Type Department Care Team (Late st Contact Info) Description 03/22/2022 Lab Requisition [facility] [address] [place] [address] Karla Kate, SMOCKING MACHINE OPERATOR [address] [facility] [address] [place] [address] Liver transplant status (CMS/HCC); Other usp (current) drug therapy; Chronic viral hepatitis C (CMS/HCC) Social History Tobacco Use Types Packs/Day [...] Exposure Response Date Recorded In the last 10 days, have yo u been in contact with someone who was confirmed or suspected to have Coronavirus/COVID-19? No / Unsure 02/27/2022 10:38 AM EST documented as of this encounter Functional Status * Are you deaf or do you have serious difficulty hearing? Answer Date of Assessment Author No 10/17/2020 3:33 PM EDT Alexandra Mandujano RN * Are you blind or [...] Date/Time Associated Diagnosis Comments CYCLOSPORINE LEVEL Routine 03/22/2022 10 :10 AM EST Liver transplant status (CMS/HCC) Other usp (current) drug therapy Chronic viral hepatitis C (CMS/HCC) documented in this encounter Results * Cyclosporine (03/22/2022 10:10 AM EST) Cyclosporine 120 100 - 400 ng/mL 03/23/2022 12:26 PM EST [facility] Comment: Cyclosporine therapeutic range: Kidney transplant................... 100-200 ng/mL Heart transplant.................... 100-300 ng/mL Liver transplant.................... 100-300 ng/mL Lung;heart/lung transplant.......... 100-350 ng/mL Test performed by LC-MS/MS at the [facility]. This test was developed and its performance characteristics determined by [facility]. It has not been cleared or approved by the FDA. The laboratory is regulated under CLIA as qualified to perform high-complexity testing. This test is used for clinical purposes. Blood Venous blood specimen / Unknown 03/22/2022 10:10 AM EST 03/22/2022 2:32 PM EST Karla Kate APRN LAB BLOOD ORDERABLES Final R esult [facility] [address] [place] [address] documented in this encounter Visit Diagnoses Diagnosis Liver transplant status (CMS/HCC) Other watermaster (current) drug therapy Chronic viral hepatitis C (CMS/HCC) Chronic hepatitis C without mention of hepatic coma documented in this encounter Additional Health Concerns Assessment Noted Time A fall risk assessment has been complete d for the patient 12/09/2021 7:36 AM EDT A Body Mass Index follow-up plan has been documented for the patient 05/05/2022 10:19 AM EST documented as of this encounter Care Teams Supervisor Rework Relationship Specialty Start Date End Date Ced Al MD [address] [place] [address] PCP - General 08/20/20 11/18/23 Mendoza Johnson DO [address] [place] [address] PCP - General 11/19/23 Sylvia De La Torre, RN [facility]TR[facility]PL[facility] ADMINISTRATION [address] [place] [address] Surgical Navigator Transplant Surgery 01/11/21 [place] [address] Surgical Navigator Transplant Surgery 01/11/21 Wolf Dubose MD [address] [place] [address] [address] Surgeon Transplant Surgery 01/11/21 Donovan Zaragoza APRN [address] [place] [address] [address] Referring Physician Transplant Surgery 01/11/21 documented as of this encounter
--- OUTSIDE RECORDS SUMMARY | 2024-12-11 09:36 | XMS_ITS | Encounter Summary ---
Author Organization [facility] Address [address] [place] [address] Care Team Providers Care Ticker Wirer Name Role Phone Ced Al MD Primary Care Provider + [phone] Sylvia De La Torre RN Unavailable [phone] Nyasia Moses Unavailable [phone] Wolf Dubose MD Unavailable [phone] Donovan Zaragoza APRN Unavailable [phone] Mendoza Johnson DO Primary Care Provider [phone] Encounter Details Date Type Department Care Team (Late st Contact Info) Description 02/23/2022 Lab Requisition [facility] [address] [place] [address] Will Bermudez MD [address] [facility] [address] [place] [address] Liver transplant status (CMS/HCC); 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 100-200 ng/mL Heart transplant.................... 100-300 ng/mL Liver transplant.................... 100-300 ng/mL Lung;heart/lung transplant.......... 100-350 ng/mL Test performed by LC-MS/MS at the [facility]. This test was developed and its performance characteristics determined by [facility]. It has not been cleared or approved by the FDA. The laboratory is regulated under CLIA as qualified to perform high-complexity testing. This test is used for clinical purposes. Blood Venous blood specimen / Unknown 02/22/2022 10:20 AM EST 02/23/2022 2:57 PM EST us Will Bermudez MD LAB BLOOD ORDERABLES Final Res ult [facility] [address] [place] [address] documented in this encounter Visit Diagnoses Diagnosis Liver transplant status (CMS/HCC) Other buttermaker continuous churn (current) drug therapy documented in this encounter Additional Health Concerns Assessment Noted Time A fall risk assessment has been complete d for the patient 12/09/2021 7:36 AM EDT A Body Mass Index follow-up plan has been documented for the patient 05/05/2022 10:19 AM EST documented as of this encounter Care Teams Ticker Wirer Relationship Specialty Start Date End Date Ced Al MD [address] [place] [address] PCP - General 08/20/20 11/18/23 Mendoza Johnson DO [address] [place] [address] PCP - General 11/19/23 Sylvia De La Torre RN [facility]TR[facility]PLANT ADMINISTRATION [address] [place] [address] Surgical Navigator Transplant Surgery 01/11/21 [place] [address] Surgical Navigator Transplant Surgery 01/11/21 Wolf Dubose MD [address] [place] [address] Surgeon Transplant Surgery 01/11/21 Donovan Zaragoza APRN [address] [place] [address] Referring Physician Transplant Surgery 01/11/21 documented as of this encounter
--- OUTSIDE RECORDS SUMMARY | 2024-12-11 09:36 | XMS_ITS | Encounter Summary ---
Author Organization [facility] Address [address] [place] [address] Care Team Providers Care Customer Loyalty Representative Name Role Phone Ced Al MD Primary Care Provider + [phone] Sylvia De La Torre RN Unavailable [phone] Nyasia Moses Unavailable [phone] Wolf Dubose MD Unavailable [phone] Donovan Zaragoza APRN Unavailable [phone] Mendoza Johnson DO Primary Care Provider [phone] Encounter Details Date Type Department Care Team (Late st Contact Info) Description 11/30/2021 Lab Requisition [facility] [address] [place] [address] Will Bermudez MD [address] [facility] [address] [place] [address] Liver transplant status (CMS/HCC); Other intermediate manager (current) drug therapy Social History Tobacco Use [...] Date/Time Associated Diagnosis Comments CYCLOSPORINE LEVEL Routine 11/30/2021 9: 52 AM EDT Liver transplant status (CMS/HCC) Other assisted (current) drug therapy documented in this encounter Results * (ABNORMAL) Cyclosporine (11/30/2021 9:52 AM EDT) Cyclosporine 63(L) 100 - 400 ng/mL 12/01/2021 3:14 PM EDT [facility] Comment: Cyclosporine therapeutic range: Kidney transplant................... 100-200 ng/mL Heart transplant.................... 100-300 ng/mL Liver transplant.................... 100-300 ng/mL Lung;heart/lung transplant.......... 100-350 ng/mL Test performed by LC-MS/MS at the [facility]. This test was developed and its performance characteristics determined by [facility]. It has not been cleared or approved by the FDA. The laboratory is regulated under CLIA as qualified to perform high-complexity testing. This test is used for clinical purposes. Blood Venous blood specimen / Unknown 11/30/2021 9:52 AM EDT 11/30/2021 1:28 PM EDT us Will Bermudez MD LAB BLOOD ORDERABLES Final Res ult [facility] [address] [place] [address] documented in this encounter Visit Diagnoses Diagnosis Liver transplant status (CMS/HCC) Other assisted (current) drug therapy documented in this encounter Additional Health Concerns Assessment Noted Time A fall risk assessment has been complete d for the patient 06/08/2021 8:58 AM EST A Body Mass Index follow-up plan has been documented for the patient 05/05/2022 10:19 AM EST documented as of this encounter Care Teams Customer Loyalty Representative Relationship Specialty Start Date End Date Ced lA MD [address] [place] [address] PCP - General 08/20/20 11/18/23 Mendoza Johnson DO [address] [place], [place] [address] PCP - General 11/19/23 Sylvia De La Torre RN [facility]TRANSPLANT ADMINISTRATION [address] [place] [address] Surgical Navigator Transplant Surgery 01/11/21 [place] [address] Surgical Navigator Transplant Surgery 01/11/21 Wolf Dubose MD [address] [place] [address] Surgeon Transplant Surgery 01/11/21 Donovan Zaragoza APRN [address] [place] [address] Referring Physician Transplant Surgery 01/11/21 documented as of this encounter
--- OUTSIDE RECORDS SUMMARY | 2024-12-11 09:36 | XMS_ITS | Encounter Summary ---
Author Organization [facility] Address [address] [place] [address] Care Team Providers Care Patient Placement Coordinator Name Role Phone Ced Al MD Primary Care Provider + [phone] Sylvia De La Torre RN Unavailable [phone] Nyasia Moses Unavailable [phone] Wolf Dubose MD Unavailable [phone] Donovan Zaragoza APRN Unavailable [phone] Mendoza Johnson DO Primary Care Provider [phone] Encounter Details Date Type Department Care Team (Late st Contact Info) Description 02/08/2022 Lab Requisition [facility] [address] [place] [address] Will Bermudez MD [address] [facility] [address] [place] [address] Liver transplant status (CMS/HCC) Social History Tobacco [...] Date/Time Associated Diagnosis Comments CYCLOSPORINE LEVEL Routine 02/08/2022 10 :00 AM EDT Liver transplant status (CMS/HCC) documented in this encounter Results * Cyclosporine (02/08/2022 10:00 AM EDT) Cyclosporine 110 100 - 400 ng/mL 02/09/2022 2:08 PM EDT [facility] Comment: Cyclosporine therapeutic range: Kidney transplant................... 100-200 ng/mL Heart transplant.................... 100-300 ng/mL Liver transplant.................... 100-300 ng/mL Lung;heart/lung transplant.......... 100-350 ng/mL Test performed by LC-MS/MS at the [facility]. This test was developed and its performance characteristics determined by [facility]. It has not been cleared or approved by the FDA. The laboratory is regulated under CLIA as qualified to perform high-complexity testing. This test is used for clinical purposes. Blood Venous blood specimen / Unknown 02/08/2022 10:00 AM EDT 02/08/2022 2:27 PM EDT us Will Bermudez MD LAB BLOOD ORDERABLES Final Res ult [facility] [address] [place], [place] [address] documented in this encounter Visit Diagnoses Diagnosis Liver transplant status (CMS/HCC) documented in this encounter Additional Health Concerns Assessment Noted Time A fall risk assessment has been complete d for the patient 12/09/2021 7:36 AM EDT A Body Mass Index follow-up plan has been documented for the patient 05/05/2022 10:19 AM EST documented as of this encounter Care Teams Patient Placement Coordinator Relationship Specialty Start Date End Date Ced Al MD [address] [place] [address] PCP - General 08/20/20 11/18/23 Mendoza Johnson DO [address] [place] [address] PCP - General 11/19/23 Sylvia De La Torre RN CH-TRANSPLANT ADMINISTRATION [address] [place] [address] Surgical Navigator Transplant Surgery 01/11/21 [place] [address] Surgical Navigator Transplant Surgery 01/11/21 Wolf Dubose MD [address] [place] [address] [place] [address] Surgeon Transplant Surgery 01/11/21 Donovan Zaragoza APRN [address] [place] [address] Referring Physician Transplant Surgery 01/11/21 documented as of this encounter
--- OUTSIDE RECORDS SUMMARY | 2024-12-11 09:36 | XMS_ITS | Encounter Summary ---
Author Organization [facility] Address [address] [place] [address] Care Team Providers Care Child Support Specialist Name Role Phone Ced Al MD Primary Care Provider + [phone] Sylvia De La Torre RN Unavailable [phone] Nyasia Moses Unavailable [phone] Wolf Dubose MD Unavailable [phone] Donovan Zaragoza APRN Unavailable [phone] Mendoza Johnson DO Primary Care Provider [phone] Encounter Details Date Type Department Care Team (Late st Contact Info) Description 10/26/2021 Lab Requisition [facility] [address] [place] [address] Will Bermudez MD [address] [facility] [address] [place] [address] Encounter for general adult medical examination without abnormal findings Social History Tobacco Use Types Packs/Day Years [...] Date/Time Associated Diagnosis Comments CYCLOSPORINE LEVEL Routine 10/26/2021 10 :00 AM EDT Encounter for general adult medical examination without abnormal findings documented in this encounter Results * Cyclosporine (10/26/2021 10:00 AM EDT) Cyclosporine 158 100 - 400 ng/mL 10/27/2021 1:37 PM EDT [facility] Comment: Cyclosporine therapeutic range: Kidney transplant................... 100-200 ng/mL Heart transplant.................... 100-300 ng/mL Liver transplant.................... 100-300 ng/mL Lung;heart/lung transplant.......... 100-350 ng/mL Test performed by LC-MS/MS at the [facility] [place] [facility]. This test was developed and its performance characteristics determined by [facility]. It has not been cleared or approved by the FDA. The laboratory is regulated under CLIA as qualified to perform high-complexity testing. This test is used for clinical purposes. Blood Venous blood specimen / Unknown 10/26/2021 10:00 AM EDT 10/26/2021 3:13 PM EDT us Will Bermudez MD LAB BLOOD ORDERABLES Final Res ult [facility] [address] [place] [address] documented in this encounter Visit Diagnoses Diagnosis Encounter for general adult medical examination without abnormal findings documented in this encounter Additional Health Concerns Assessment Noted Time A fall risk assessment has been complete d for the patient 06/08/2021 8:58 AM EST A Body Mass Index follow-up plan has been documented for the patient 05/05/2022 10:19 AM EST documented as of this encounter Care Teams Child Support Specialist Relationship Specialty Start Date End Date Ced Al MD [address] [place] [address] PCP - General 08/20/20 11/18/23 Mendoza Johnson DO [address] [place] [address] PCP - General 11/19/23 Sylvia De La Torre RN CH-TRANSPLANT ADMINISTRATION [address] [place] [address] Surgical Navigator Transplant Surgery 01/11/21 [place] [address] Surgical Navigator Transplant Surgery 01/11/21 Wolf Dubose MD [address] [place] [address] Surgeon Transplant Surgery 01/11/21 Donovan Zaragoza APRN [address] [place] [address] Referring Physician Transplant Surgery 01/11/21 documented as of this encounter
--- OUTSIDE RECORDS SUMMARY | 2024-12-11 09:36 | XMS_ITS | Encounter Summary ---
Author Organization [facility] Address [address] [place] [address] Care Team Providers Care Soakers Supervisor Name Role Phone Ced Al MD Primary Care Provider + [phone] Sylvia De La Torre RN Unavailable [phone] Nyasia Moses Unavailable [phone] Wolf Dubose MD Unavailable [phone] Donovan Zaragoza APRN Unavailable [phone] Mendoza Johnson DO Primary Care Provider [phone] Encounter Details Date Type Department Care Team (Late st Contact Info) Description 01/22/2021 Lab Requisition [facility] [address] [place] [address] Will Bermudez MD [address] [facility] [address] [place] [address] Encounter for general adult medical examination without [...] have Coronavirus / COVID-19? No / Unsure 01/04/2021 6:35 AM EDT documented as of this encounter Functional Status [...] Date/Time Associated Diagnosis Comments CYCLOSPORINE LEVEL Routine 01/22/2021 12 :09 PM EDT Encounter for general adult medical examination without abnormal findings documented in this encounter Results * (ABNORMAL) Cyclosporine (01/22/2021 12:09 PM EDT) Cyclosporine 484(HH) 100 - 400 ng/mL 01/23/2021 1:45 PM EDT [facility] Comment: Cyclosporine therapeutic range: Kidney transplant................... 100-200 ng/mL Heart transplant.................... 100-300 ng/mL Liver transplant.................... 100-300 ng/mL Lung;heart/lung transplant.......... 100-350 ng/mL Test performed by LC-MS/MS at the [facility]. This test was developed and its performance characteristics determined by [facility]. It has not been cleared or approved by the FDA. The laboratory is regulated under CLIA as qualified to perform high-complexity testing. This test is used for clinical purposes. Blood Venous blood specimen / Unknown 01/22/2021 12:09 PM EDT 01/22/2021 3:40 PM EDT us Will Bermudez MD LAB BLOOD ORDERABLES Final Res ult [facility] [address] [place] [address] documented in this encounter Visit Diagnoses Diagnosis Encounter for general adult medical examination without abnormal findings documented in this encounter Additional Health Concerns Assessment Noted Time A fall risk assessment has been complete d for the patient 01/04/2021 7:28 AM EDT documented as of this encounter Care Teams Soakers Supervisor Relationship Specialty Start Date End Date Ced Al MD [address] [place] [address] PCP - General 08/20/20 11/18/23 Mendoza Johnson DO [address] [place] [address] PCP - General 11/19/23 Sylvia De La Torre RN CH-TRANSPLANT ADMINISTRATION [address] [place] [address] Surgical Navigator Transplant Surgery 01/11/21 [place] [address] Surgical Navigator Transplant Surgery 01/11/21 Wolf Dubose MD [address] [place] [address] Surgeon Transplant Surgery 01/11/21 Donovan Zaragoza APRN [address] [place] [address] Referring Physician Transplant Surgery 01/11/21 documented as of this encounter
--- OUTSIDE RECORDS SUMMARY | 2024-12-11 09:36 | XMS_ITS | Encounter Summary ---
Author Organization [facility] Address [address] [place] [address] Care Team Providers Care Wash Plant Operator Name Role Phone Ced Al MD Primary Care Provider + [phone] Sylvia De La Torre RN Unavailable [phone] Nyasia Moses Unavailable [phone] Wolf Dubose MD Unavailable [phone] Donovan Zaragoza APRN Unavailable [phone] Mendoza Johnson DO Primary Care Provider [phone] Encounter Details Date Type Department Care Team (Late st Contact Info) Description 01/04/2022 Lab Requisition [facility] [address] [place] [address] Will Bermudez MD [address] [facility] [address] [place] [id number] Liver transplant status (CMS/HCC); Other director long term care (current) drug therapy Social History Tobacco Use [...] suspected to have Coronavirus/COVID-19? No / Unsure 12/09/2021 6:44 AM EDT documented as of this encounter [...] Date/Time Associated Diagnosis Comments CYCLOSPORINE LEVEL Routine 01/04/2022 10 :04 AM EDT Liver transplant status (CMS/HCC) Other director long term care (current) drug therapy documented in this encounter Results * Cyclosporine (01/04/2022 10:04 AM EDT) Cyclosporine 157 100 - 400 ng/mL 01/05/2022 3:05 PM EDT [facility] Comment: Cyclosporine therapeutic range: Kidney transplant................... 100-200 ng/mL Heart transplant.................... 100-300 ng/mL Liver transplant.................... 100-300 ng/mL Lung;heart/lung transplant.......... 100-350 ng/mL Test performed by LC-MS/MS at the [facility]. This test was developed and its performance characteristics determined by [facility]. It has not been cleared or approved by the FDA. The laboratory is regulated under CLIA as qualified to perform high-complexity testing. This test is used for clinical purposes. Blood Venous blood specimen / Unknown 01/04/2022 10:04 AM EDT 01/04/2022 5:11 PM EDT us Will Bermudez MD LAB BLOOD ORDERABLES Final Res ult [facility] [address] [place] [address] documented in this encounter Visit Diagnoses Diagnosis Liver transplant status (CMS/HCC) Other director long term care (current) drug therapy documented in this encounter Additional Health Concerns Assessment Noted Time A fall risk assessment has been complete d for the patient 12/09/2021 7:36 AM EDT A Body Mass Index follow-up plan has been documented for the patient 05/05/2022 10:19 AM EST documented as of this encounter Care Teams Wash Plant Operator Relationship Specialty Start Date End Date Ced Al MD [address] [place] [address] PCP - General 08/20/20 11/18/23 Mendoza Johnson DO [address] [place] [address] PCP - General 11/19/23 Sylvia De La Torre RN [facility] [address] [place] [address] Surgical Navigator Transplant Surgery 01/11/21 [place] [address] Surgical Navigator Transplant Surgery 01/11/21 Wolf Dubose MD [address] [place] [address] Surgeon Transplant Surgery 01/11/21 Donovan Zaragoza APRN [address] [place] [address] Referring Physician Transplant Surgery 01/11/21 documented as of this encounter
--- OUTSIDE RECORDS SUMMARY | 2024-12-11 09:36 | XMS_ITS | Encounter Summary ---
Author Organization [facility] Address [address] [place] [address] Care Team Providers Care Global Director Air And Climate Change Name Role Phone Ced Al MD Primary Care Provider + [phone] Sylvia De La Torre RN Unavailable [phone] Nyasia Moses Unavailable [phone] Wolf Dubose MD Unavailable [phone] Donovan Zaragoza APRN Unavailable [phone] Mendoza Johnson DO Primary Care Provider [phone] Encounter Details Date Type Department Care Team (Late st Contact Info) Description 09/21/2021 Lab Requisition [facility] [address] [place] [address] Will Bermudez MD [address] 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 100-200 ng/mL Heart transplant.................... 100-300 ng/mL Liver transplant.................... 100-300 ng/mL Lung;heart/lung transplant.......... 100-350 ng/mL Test performed by LC-MS/MS at the [facility]. This test was developed and its performance characteristics determined by [facility]. It has not been cleared or approved by the FDA. The laboratory is regulated under CLIA as qualified to perform high-complexity testing. This test is used for clinical purposes. Blood Venous blood specimen / Unknown 09/21/2021 10:45 AM EDT 09/21/2021 3:33 PM EDT us Will Bermudez MD LAB BLOOD ORDERABLES Final Res ult [facility] [address] [place] [address] documented in this encounter Visit Diagnoses Diagnosis Liver transplant status (CMS/HCC) Other penitentiary (current) drug therapy documented in this encounter Additional Health Concerns Assessment Noted Time A fall risk assessment has been complete d for the patient 06/08/2021 8:58 AM EST A Body Mass Index follow-up plan has been documented for the patient 05/05/2022 10:19 AM EST documented as of this encounter Care Teams Global Director Air And Climate Change Relationship Specialty Start Date End Date Ced Al MD [address] [place] [address] PCP - General 08/20/20 11/18/23 Mendoza Johnson DO [address] [place] [address] PCP - General 11/19/23 Sylvia De La Torre RN [facility] [address] [place], [place] [id number] Surgical Navigator Transplant Surgery 01/11/21 [place] [address] Surgical Navigator Transplant Surgery 01/11/21 Wolf Dubose MD [address] [place] [address] Surgeon Transplant Surgery 01/11/21 Donovan Zaragoza APRN [address] [place] [address] Referring Physician Transplant Surgery 01/11/21 documented as of this encounter
--- OUTSIDE RECORDS SUMMARY | 2024-12-11 09:36 | XMS_ITS | Encounter Summary ---
Author Organization [facility] Address [address] [place] [address] Care Team Providers Care Manager Ct Name Role Phone Ced Al MD Primary Care Provider + [phone] Sylvia De La Torre RN Unavailable [phone] Nyasia Moses Unavailable [phone] Wolf Dubose MD Unavailable [phone] Donovan Zaragoza APRN Unavailable [phone] Mendoza Johnson DO Primary Care Provider [phone] Encounter Details Date Type Department Care Team (Late st Contact Info) Description 08/11/2022 Orders Only External Location [address] [place] [address] Ced Al MD [address] [place] [address] Social History Tobacco Use Types [...] Procedure Name Priority Date/Time Associated Diagnosis Comments XR OUTSIDE IMAGES 08/11/2022 9:18 AM EDT documented in this encounter Results * XR OUTSIDE IMAGES (08/11/2022 9:18 AM EDT) Anatomical Region Laterality Modality Radiographic Maru ging 08/11/2022 9:18 AM EDT Ced Al MD IMG XR PROCEDURES Final Resu lt documented in this encounter Visit Diagnoses Not on filedocumented in this encounter Additional Health Concerns Assessment Noted Time A fall risk assessment has been complete d for the patient 12/09/2021 7:36 AM EDT A Body Mass Index follow-up plan has been documented for the patient 05/05/2022 10:19 AM EST documented as of this encounter Care Teams Manager Ct Relationship Specialty Start Date End Date Ced Al MD [address] [place] [address] PCP - General 08/20/20 11/18/23 Mendoza Johnson DO [address] [place], [place] [address] PCP - General 11/19/23 Sylvia De La Torre, RN [facility] [address] [place] [address] Surgical Navigator Transplant Surgery 01/11/21 [place] [address] Surgical Navigator Transplant Surgery 01/11/21 Wolf Dubose MD [address] [place] [address] Surgeon Transplant Surgery 01/11/21 Donovan Zaragoza APRN [address] [place] [address] Referring Physician Transplant Surgery 01/11/21 documented as of this encounter
--- OUTSIDE RECORDS SUMMARY | 2024-12-11 09:36 | XMS_ITS | Encounter Summary ---
Author Organization [facility] Address [address] [place] [address] Care Team Providers Care Town Justice Name Role Phone Ced Al MD Primary Care Provider + [phone] Sylvia De La Torre RN Unavailable [phone] Nyasia Moses Unavailable [phone] Wolf Dubose MD Unavailable [phone] Donovan Zaragoza APRN Unavailable [phone] Mendoza Johnson DO Primary Care Provider [phone] Encounter Details Date Type Department Care Team (Late st Contact Info) Description 04/22/2022 Orders Only External Location [address] [place] [address] Simeon Saldivar MD [address] [place] [address] [place] [address] Social History Tobacco Use Types Packs/Day [...] Procedure Name Priority Date/Time Associated Diagnosis Comments CT OUTSIDE IMAGES 04/22/2022 2:12 PM EST documented in this encounter Results * CT OUTSIDE IMAGES (04/22/2022 2:12 PM EST) Anatomical Region Laterality Modality Computed Tomogra phy 04/22/2022 2:12 PM EST Simeon Saldivar MD [facility] PROCEDURES Final Result documented in this encounter Visit Diagnoses Not on filedocumented in this encounter Additional Health Concerns Assessment Noted Time A fall risk assessment has been complete d for the patient 12/09/2021 7:36 AM EDT A Body Mass Index follow-up plan has been documented for the patient 05/05/2022 10:19 AM EST documented as of this encounter Care Teams Town Justice Relationship Specialty Start Date End Date Ced Al MD [address] [place] [address] PCP - General 08/20/20 11/18/23 Mendoza Johnson DO [address] [place], [place] [address] PCP - General 11/19/23 Sylvia De La Torre, RN [facility] [address] [place] [address] Surgical Navigator Transplant Surgery 01/11/21 [place] [address] Surgical Navigator Transplant Surgery 01/11/21 Wolf Dubose MD [address] [place] [address] Surgeon Transplant Surgery 01/11/21 Donovan Zaragoza APRN [address] [place] [address] Referring Physician Transplant Surgery 01/11/21 documented as of this encounter
--- OUTSIDE RECORDS SUMMARY | 2024-12-11 09:36 | XMS_ITS | Encounter Summary ---
Author Organization [facility] Address [address] [place] [address] Care Team Providers Care Arbor End Mainspring Former Name Role Phone Ced Al MD Primary Care Provider + [phone] Sylvia De La Torre RN Unavailable [phone] Nyasia Moses Unavailable [phone] Wolf Dubose MD Unavailable [phone] Donovan Zaragoza APRN Unavailable [phone] Mendoza Johnson DO Primary Care Provider [phone] Encounter Details Date Type Department Care Team (Late st Contact Info) Description 10/05/2021 Lab Requisition [facility] [address] [place] [address] Will Bermudez MD [address] [facility] [address] [place] [address] Encounter for general adult medical examination without [...] Carla Mandujano RN documented in this encounter Miscellaneous Notes * Result Encounter Note - Clarisse Ritchie RN - 10/05/2021 1:30 PM EDT CSA for review. Patient repeating labs tomorrow. Unclear if had taken dose prior to these labs. documented in this encounter Plan of Treatment Not on file documented as of this encounter Procedures Procedure Name Priority Date/Time Associated Diagnosis Comments CYCLOSPORINE LEVEL Routine 10/05/2021 10 :00 AM EDT Encounter for general adult medical examination without abnormal findings documented in this encounter Results * Cyclosporine (10/05/2021 10:00 AM EDT) Cyclosporine 335 100 - 400 ng/mL 10/06/2021 1:55 PM EDT [facility] Comment: Cyclosporine therapeutic range: Kidney transplant................... 100-200 ng/mL Heart transplant.................... 100-300 ng/mL Liver transplant.................... 100-300 ng/mL Lung;heart/lung transplant.......... 100-350 ng/mL Test performed by LC-MS/MS at the [facility]. This test was developed and its performance characteristics determined by [facility]. It has not been cleared or approved by the FDA. The laboratory is regulated under CLIA as qualified to perform high-complexity testing. This test is used for clinical purposes. Blood Venous blood specimen / Unknown 10/05/2021 10:00 AM EDT 10/05/2021 1:31 PM EDT us Will Bermudez MD LAB BLOOD ORDERABLES Final Res ult [facility] [address] [place] [address] documented in this encounter Visit Diagnoses Diagnosis [...] documented as of this encounter Care Teams Arbor End Mainspring Former Relationship Specialty Start Date End Date Ced Al MD [address] [place] [address] PCP - General 08/20/20 11/18/23 Mendoza Johnson DO [address] [place] [address] PCP - General 11/19/23 White, [place] E, RN [facility] [address] [place] [address] Surgical Navigator Transplant Surgery 01/11/21 [place] [address] Surgical Navigator Transplant Surgery 01/11/21 Wolf Dubose MD [address] [place] [address] Surgeon Transplant Surgery 01/11/21 Donovan Zaragoza APRN [address] [place] [address] Referring Physician Transplant Surgery 01/11/21 documented as of this encounter
--- OUTSIDE RECORDS SUMMARY | 2024-12-11 09:36 | XMS_ITS | Encounter Summary ---
Author Organization [facility] Address [address] [place] [address] Care Team Providers Care Customer Marketing Assistant Name Role Phone Ced Al MD Primary Care Provider + [phone] Sylvia De La Torre RN Unavailable [phone] Nyasia Moses Unavailable [phone] Wolf Dubose MD Unavailable [phone] Donovan Zaragoza APRN Unavailable [phone] Mendoza Johnson DO Primary Care Provider [phone] Encounter Details Date Type Department Care Team (Late st Contact Info) Description 10/07/2021 Lab Requisition [facility] [address] [place] [address] Will Bermudez MD [address] [facility] [address] [place] [address] Liver transplant status (CMS/HCC) Social History Tobacco [...] Date/Time Associated Diagnosis Comments CYCLOSPORINE LEVEL Routine 10/07/2021 8: 35 AM EDT Liver transplant status (CMS/HCC) documented in this encounter Results * Cyclosporine (10/07/2021 8:35 AM EDT) Cyclosporine 348 100 - 400 ng/mL 10/07/2021 2:05 PM EDT [facility] Blood Venous blood specimen / Unknown 10/07/2021 8:35 AM EDT 10/07/2021 11:11 AM EDT us Will Bermudez MD LAB BLOOD ORDERABLES Final Res ult [facility] [address] [place] [address] documented in this encounter Visit Diagnoses Diagnosis Liver transplant status (CMS/HCC) documented in this encounter Additional Health Concerns Assessment Noted Time A fall risk assessment has been complete d for the patient 06/08/2021 8:58 AM EST A Body Mass Index follow-up plan has been documented for the patient 05/05/2022 10:19 AM EST documented as of this encounter Care Teams Customer Marketing Assistant Relationship Specialty Start Date End Date Ced Al MD [address] [place] [address] PCP - General 08/20/20 11/18/23 Mendoza Johnson DO [address] [place] [address] PCP - General 11/19/23 Sylvia De La Torre RN [facility] [address] [place], [place] [address] Surgical Navigator Transplant Surgery 01/11/21 [place] [address] Surgical Navigator Transplant Surgery 01/11/21 Wolf Dubose MD [address] [address] Surgeon Transplant Surgery 01/11/21 Donovan Zaragoza APRN [address] [place] [address] Referring Physician Transplant Surgery 01/11/21 documented as of this encounter
--- OUTSIDE RECORDS SUMMARY | 2024-12-11 09:36 | XMS_ITS | Encounter Summary ---
Author Organization [facility] Address [address] [place] [address] Care Team Providers Care Planer Hand Name Role Phone Ced Al MD Primary Care Provider + [phone] Sylvia De La Torre RN Unavailable [phone] Nyasia Moses Unavailable [phone] Wolf Dubose MD Unavailable [phone] Donovan Zaragoza APRN Unavailable [phone] Mendoza Johnson DO Primary Care Provider [phone] Encounter Details Date Type Department Care Team (Late st Contact Info) Description 08/11/2022 Orders Only External Location [address] [place] [address] Provider, External Social History Tobacco Use Types Packs/Day Years [...] Author No 10/17/2020 3:33 PM EDT Carla Mandujano, RN * Are you blind or do [...] Associated Diagnosis Comments XR OUTSIDE IMAGES 08/11/2022 9:20 AM EDT documented in this encounter Results * XR OUTSIDE IMAGES (08/11/2022 9:20 AM EDT) Anatomical Region Laterality Modality Radiographic Maru ging 08/11/2022 9:20 AM EDT External Provider IMG XR PROCEDURES Final Result documented in this encounter Visit Diagnoses Not on filedocumented in this encounter Additional Health Concerns Assessment Noted Time A fall risk assessment has been complete d for the patient 12/09/2021 7:36 AM EDT A Body Mass Index follow-up plan has been documented for the patient 05/05/2022 10:19 AM EST documented as of this encounter Care Teams Planer Hand Relationship Specialty Start Date End Date Ced Al MD [address] [place] [address] PCP - General 08/20/20 11/18/23 Mendoza Johnson DO [address] [place] [address] PCP - General 11/19/23 Sylvia De La Torre, RN [facility] [address] [place] [address] Surgical Navigator Transplant Surgery 01/11/21 [place] [address] Surgical Navigator Transplant Surgery 01/11/21 Wolf Dubose MD [address] [address] Surgeon Transplant Surgery 01/11/21 Donovan Zaragoza APRN [address] [facility] [place] [address] Referring Physician Transplant Surgery 01/11/21 documented as of this encounter
--- OUTSIDE RECORDS SUMMARY | 2024-12-11 09:36 | XMS_ITS | Encounter Summary ---
Author Organization [facility] Address [address] [facility] [place] [address] Care Team Providers Care Cafe Operator Name Role Phone Ced Al MD Primary Care Provider + [phone] Sylvia De La Torre RN Unavailable [phone] Nyasia Moses Unavailable [phone] Wolf Dubose MD Unavailable [phone] Donovan Zaragoza APRN Unavailable [phone] Mendoza Johnson DO Primary Care Provider [phone] Encounter Details Date Type Department Care Team (Late st Contact Info) Description 11/02/2021 Lab Requisition [facility] [address] [place] [address] Will Bermudez MD [address] [facility] [address] [place] [address] Liver transplant status (CMS/HCC) Social History Tobacco [...] Encounter Note - Clarisse Ritchie RN - 11/02/2021 2:39 PM EDT Level for provider review. * Result Encounter Note - Donovan Zaragoza APRN - 11/02/2021 2:39 PM EDT 11/02 labs reviewed, see previous note, cyclosporine level 130. No changes continue with current cyclosporine and CellCept dosing. documented in this encounter Plan of Treatment Not on file documented as of this encounter Procedures Procedure Name Priority Date/Time Associated Diagnosis Comments CYCLOSPORINE LEVEL Routine 11/02/2021 9: 40 AM EDT Liver transplant status (CMS/HCC) documented in this encounter Results * Cyclosporine (11/02/2021 9:40 AM EDT) Cyclosporine 130 100 - 400 ng/mL 11/03/2021 2:30 PM EDT [facility] Comment: Cyclosporine therapeutic range: Kidney transplant................... 100-200 ng/mL Heart transplant.................... 100-300 ng/mL Liver transplant.................... 100-300 ng/mL Lung;heart/lung transplant.......... 100-350 ng/mL Test performed by LC-MS/MS at the [facility]. This test was developed and its performance characteristics determined by [facility]. It has not been cleared or approved by the FDA. The laboratory is regulated under CLIA as qualified to perform high-complexity testing. This test is used for clinical purposes. Blood Venous blood specimen / Unknown 11/02/2021 9:40 AM EDT 11/02/2021 2:44 PM EDT us Will Bermudez MD LAB BLOOD ORDERABLES Final Res ult Performing Organization Address City/State/[facility] Co de Phone Number [facility] [address] [place] [address] documented in this encounter Visit Diagnoses Diagnosis Liver transplant status (CMS/HCC) documented in this encounter Additional Health Concerns Assessment Noted Time A fall risk assessment has been complete d for the patient 06/08/2021 8:58 AM EST A Body Mass Index follow-up plan has been documented for the patient 05/05/2022 10:19 AM EST documented as of this encounter Care Teams Cafe Operator Relationship Specialty Start Date End Date Ced Al MD [address] [place] [address] PCP - General 08/20/20 11/18/23 Mendoza Johnson DO [address] [place] [address] PCP - General 11/19/23 Sylvia De La Torre RN [facility] [address] [place] [address] Surgical Navigator Transplant Surgery 01/11/21 [place] [address] Surgical Navigator Transplant Surgery 01/11/21 Wolf Dubose MD [address] [place] [address] Surgeon Transplant Surgery 01/11/21 Donovan Zaragoza APRN [address] [place] [address] Referring Physician Transplant Surgery 01/11/21 documented as of this encounter
--- OUTSIDE RECORDS SUMMARY | 2024-12-11 09:36 | XMS_ITS | Encounter Summary ---
Author Organization [facility] Address [address] [place] [address] Care Team Providers Care Advertising Vice President Name Role Phone Ced Al MD Primary Care Provider [phone] Sylvia De La Torre RN Unavailable [phone] Nyasia Moses Unavailable [phone] Wolf Dubose MD Unavailable [phone] Donovan Zaragoza APRN Unavailable [phone] Mendoza Johnson DO Primary Care Provider [phone] Encounter Details Date Type Department Care Team (Late st Contact Info) Description 12/21/2021 Lab Requisition [facility] [address] [place] [address] Will Bermudez MD [address] [facility] [address] [place] [address] Encounter for general adult medical examination without [...] Date/Time Associated Diagnosis Comments CYCLOSPORINE LEVEL Routine 12/21/2021 9: 55 AM EDT Encounter for general adult medical examination without abnormal findings documented in this encounter Results * (ABNORMAL) Cyclosporine (12/21/2021 9:55 AM EDT) Cyclosporine 591(HH) 100 - 400 ng/mL 12/22/2021 10:25 AM EDT [email or web address] Comment: Cyclosporine therapeutic range: Kidney transplant................... 100-200 ng/mL Heart transplant.................... 100-300 ng/mL Liver transplant.................... 100-300 ng/mL Lung;heart/lung transplant.......... 100-350 ng/mL Test performed by LC-MS/MS at the [facility]. This test was developed and its performance characteristics determined by [facility]. It has not been cleared or approved by the FDA. The laboratory is regulated under CLIA as qualified to perform high-complexity testing. This test is used for clinical purposes. Blood Venous blood specimen / Unknown 12/21/2021 9:55 AM EDT 12/21/2021 12:43 PM EDT us Will Bermudez MD LAB BLOOD ORDERABLES Final Res ult [facility] [address] [place] [address] documented in this encounter Visit Diagnoses Diagnosis [...] documented as of this encounter Care Teams Advertising Vice President Relationship Specialty Start Date End Date Ced Al MD [address] [place] [address] PCP - General 08/20/20 11/18/23 Mendoza Johnson DO [address] [place] [address] PCP - General 11/19/23 Sylvia De La Torre RN [facility] [address] [place], [place] [id number] Surgical Navigator Transplant Surgery 01/11/21 [place] [address] Surgical Navigator Transplant Surgery 01/11/21 Wolf Dubose MD [address] [place] [phone] Surgeon Transplant Surgery 01/11/21 Donovan Zaragoza APRN [address] [facility] [address] [place] [id number] Referring Physician Transplant Surgery 01/11/21 documented as of this encounter
--- OUTSIDE RECORDS SUMMARY | 2024-12-11 09:36 | XMS_ITS | Clinical Summary ---
Author Organization [facility] Address [address] [place] [address] Care Team Providers Care Loop Tacker Name Role Phone Sylvia De La Torre RN Unavailable [phone] Nyasia Moses Unavailable Wolf Dubose MD Unavailable Donovan Zaragoza APRN Unavailable [phone] Mendoza Johnson DO Primary Care Provider Allergies No known active allergies Medications levothyroxine (Synthroid, Levoxyl) 25 MCG tablet Take 1 tablet (25 mcg) by mouth 1 (one) time each day. Active B Complex Vitamins (B-Complex/B-12) tablet 1,000 mg 1 (one) time each day. 2 Active alendronate (Fosamax) 70 MG tablet 3 Active atorvastatin (Lipitor) 20 MG tablet 3 Active calcium carbonate 1500 (600 Ca) MG tablet 3 Active carvedilol (Coreg) 6.25 MG tablet Take by mouth in the morning and in the evening. Take with meals. 3 Active doxazosin (Cardura) 4 MG tablet Take 1 tablet (4 mg) by mouth nightly. 3 Active losartan (Cozaar) 25 MG tablet Take 1 tablet (25 mg) by mouth daily. 3 Active ondansetron ODT (Zofran-ODT) 4 MG disintegrating tablet every 8 (eight) hours if needed. 3 Active HYDROcodone-acetami nophen (Coldwater) 7.5-325 MG tablet 3 Active hydrALAZINE (Apresoline) 25 MG tablet Take by mouth daily. 3 Active isosorbide dinitrate (Isordil) 20 MG tablet Take 1 tablet (20 mg) by mouth in the morning and 1 tablet (20 mg) at noon and 1 tablet (20 mg) in the evening. 3 Active torsemide (Demadex) 20 MG tablet Take 1 tablet (20 mg) by mouth 1 (one) time each day. 3 Active sodium bicarbonate 650 MG tablet Take 1 tablet (650 mg) by mouth 2 (two) times a day. 60 tablet 11 4 Active cycloSPORINE modified (Gengraf) 25 MG capsule Take 2 capsules (50 mg) by mouth 2 (two) times a day. 120 capsule 11 5 05/01/19 26 Active mycophenolate (Cellcept) 250 MG capsuleIndications: Status post liver transplantation (CMS/HCC) Take 1 capsule (250 mg) by mouth 2 (two) times a day. Z94.4 60 capsule 11 5 Active aspirin 81 MG EC tablet Take 1 tablet (81 mg) by mouth daily. Active CYANOCOBALAMIN PO Take by mouth. Active Active Problems Problem Noted Date Diagnosed Date Transplanted liver 11/16/2021 Hypothyroidism 03/09/2021 Congenital kidney disease 03/09/2021 History of psychiatric treatment 03/09/2021 Chronic obstructive pulmonary disease 03/09/2021 Anemia 03/09/2021 Right inguinal hernia 01/11/2021 ESRD (end stage renal disease) 12/29/2020 Overview (12/29/2020): Added automatically from request for surgery [id number] Complications due to vascular device, implant, a nd graft 12/29/2020 Overview (12/29/2020): Added automatically from request for surgery [id number] Secondary esophageal varices 11/20/2020 End stage liver disease 11/20/2020 Encounter for pre-transplant evaluation for liver transplant 11/10/2020 Malnutrition 11/10/2020 Assessment & Plan (11/16/2020 8:48 PM EDT): Nutrition consulted. Ascites due to alcoholic cirrhosis 11/05/2020 Assessment & Plan (11/17/2020 7:39 PM EDT): Most recent therapeutic paracentesis on 11/08/20. Underwent diagnostic paracentesis on admission on 11/16/20, labs still pending. No signs of SBP on labwork. Will stop ceftriaxone and start ciprofloxacin for SBP prophlaxis based on labwork. Blood cultures drawn in transplant clinic. Hepatic encephalopathy 11/05/2020 Overview (11/22/2020): S/p OLT Continue to monitor for improvement Last Ammonia level is normal LFT's, improving Safety precaution Assessment & Plan (11/17/2020 7:40 PM EDT): Appears to have grade 1 hepatic encephalopathy. Asterixis is present on examination. On lactulose and rifaximin. Target 3-4 bowel movements per day. No signs of GI bleed or infection. No signs of infection so far. Acute kidney injury 10/13/2020 Overview (11/22/2020): Possible Hepatorenal syndrome Baseline Cr 1.08 Monitor renal function daily Avoid nephrotoxins, avoid NSAIDs, renally dose medications Nephrology following Continue gentle hydration Renal Function Panel daily Assessment & Plan (11/17/2020 7:38 PM EDT): Suspicious for hepatorenal syndrome. Labwork shows pre-renal etiology. Monitor I&Os and daily weights. Nephrology following, midodrine dose increased to 15 mg TID and octreotide started 200mg TID. Adrenal incidentaloma 10/09/2020 Overview (11/21/2020): F/U as outpatient Assessment & Plan (11/16/2020 8:45 PM EDT): Incidentally found on imaging. Follow up with endocrinology as an outpatient. Hepatitis C Assessment & Plan (11/16/2020 8:44 PM EDT): Untreated as of yet. Patient listed for hepatitis C liver transplant. Anxiety Assessment & Plan (11/16/2020 8:44 PM EDT): Currently stable. Not on any medications. Resolved Problems Problem Noted Date Diagnosed Date Resolved Date On mechanically assisted ventilation 11/21/2020 12/09/2020 Overview (11/22/2020): Intubated for OLT Patient was extubated today and weaned to NC, may wean to RA as tolerated CXR result as above Continue adequate oral and pulmonary toilet Continue IS PRN CXR, blood gasses and nebs Hepatorenal syndrome 11/18/2020 021 Hyperkalemia 11/16/2020 12/09/2020 Assessment & Plan (11/17/2020 7:40 PM EDT): Resolving. Continue lokelma for now. Hyponatremia 10/13/2020 12/09/2020 Overview (11/22/2020): Hypotonic hypervolemic hyponatremia likely from excess non-osmotic ADH secretion in the setting of fluid compartment changes in cirrhosis Na level acceptable Continue to monitor Renal following BMP in AM Assessment & Plan (11/17/2020 7:37 PM EDT): Sodium levels improving slowly at an acceptable rate. Currently on IV albumin and started midodrine, octretide per renal recommendations. Goal is improve vasoconstriction so as to negate the high ADH state. Continue to monitor Q4hr Na levels and if patient has more than 8 meq correction at lab check with ideally no more than 124 (baseline is at 116 on day of admission). If overcorrection, consider DDAVP or D5W. Decompensation of cirrhosis of liver 10/08/2020 12/09/2020 Overview (11/21/2020): 11/19 S/p paracentesis 7L removed 11/21 s/p OLT 2L Crystalloid, 25% albumin, 5 PRBC, 6FFP, 1 platelets, 2 cryo Monitor for s/s of bleeding Monitor PARMINDER drains output Continue immunosuppressant per txp Rest of care per primary Assessment & Plan (11/17/2020 7:38 PM EDT): Complicated by coagulopathy with elevated INR, hyperbilirubinemia and acute kidney injury. Being followed by transplant surgery and transplant hepatology. Listed for orthotopic liver transplant but will need Na greater than 125 and is therefore currently inactive. Most recent endoscopy was on 11/10/20. Inguinal hernia, right 10/08/202010/17 Immunizations Immunization Administration Dates Next Due Hep A, Adult 10/13/2020 Hep B, adult 10/13/2020 Influenza, high-dose, quadrivalent 02/19/2023 Influenza, injectable, quadrivalent, preservativ e free 03/10/2022 [employer] COVID-19 Biv alent (Lovell Cap) 12+ years (rubina-sucrose) 01/11/2022 Family History Medical History Relation Name Comments Cirrhosis Father Heart attack Father Cirrhosis Mother Relation Name Status Comments Father Mother Social History Tobacco Use Types Packs/Day Years Used Date Smoking Tobacco: Former Cigarettes 2 30 0 09/07/1990 - 09/07/2020 Passive Smoke Exposure: Past Smokeless Tobacco: Never Tobacco Cessation:Counseling Given: Not Answered Alcohol Use Standard Drinks/Week Comments Not Currently 0 (1 standard drink = 0.6 oz pure alcohol) reports quitting 35yrs ago and prior to that drinking very heavy PHQ-2 Answer Date Recorded Patient Health Questionnaire-2 Score 0 05/02/2024 PHQ-2A Answer Date Recorded Patient Health Questionnaire-2 Score 0 11/14/2022 Sex and Gender Information Value Date Recorded Sex Assigned at Not on file Legal Sex Male 7:07 PM EDT Gender Identity Not on file Sexual Orientation Not on file Last Filed Vital Signs Vital Sign Reading Time Taken Comments Blood Pressure 130/73 05/02/2024 2:24 PM EST Pulse 55 05/02/2024 2:24 PM EST Temperature 36.5 C (97.7 F) 05/02/2024 2:24 PM EST Respiratory Rate 18 05/02/2024 2:24 PM EST Oxygen Saturation 98% 05/02/2024 2:24 PM EST Inhaled Oxygen Concentration - - Weight 95.8 kg (211 lb 3.2 oz) 05/02/2024 2:24 P M EST Height 180.3 cm (5' 11 ) 05/02/2024 2:24 PM EST Body Mass Index 29.46 05/02/2024 2:24 PM EST Plan of Treatment Health Maintenance Due Date Last Done Comments [facility]-Bone Density Scan 1954 [facility]-Medicare Annual Wellness (AWV) 1955 [facility]-/Child/Adol SDOH Screenings 1954 [facility]- SDOH Screenings 1972 [facility]-Adult SDOH Screenings 1972 [facility]-DTaP,Tdap,and Td Vaccines (1 - Tdap) 1973 [facility]-Pneumococcal Vaccine: 50+ Years (1 of 2 - PCV) 1973 [facility]-Zoster Vaccines (1 of 2) 1973 CT Colonography 12/21/1999 FIT-DNA 12/21/1999 FIT 12/21/1999 FOBT 12/21/1999 Sigmoidoscopy 12/21/1999 [facility]-RSV Vaccine: 60+ Years or (1 - Risk 60-74 years 1-dose series) 2014 [facility]-Abdominal Aortic Aneurysm (AAA) Screening 12/21/2019 [facility]-Hepatitis A Vaccines (2 of 2 - Risk 2-dose series) 04/15/2021 10/13/2020 [facility]-Lung Cancer Screening 11/28/2021 11/28/2020 [id number] Vaccine (3 - Pfizer risk series) 02/08/2022 01/11/2022, 11/04/2021 [facility]-Influenza Vaccine (#1) 2024 02/19/2023, [facility]-Depression Screening 05/02/2025 05/02/2024 Colonoscopy 11/10/2030 11/10/2020 [facility]-Colorectal Cancer Screening 11/10/2030 [facility]-Diabetes: Hemoglobin A1C Discontinued 11/09/2023, 11/14/2022, 12/09/2021, Additional history exists [facility]-Obesity Intervention Completed 025, 11/13/2023, 10/16/2023, Additional history exists HPV Vaccines Aged Out No longer eligi ble based on patient's age to complete this topic [facility]-HIB Vaccines Aged Out No longer e ligible based on patient's age to complete this topic [facility]-IPV Vaccines Aged Out No longer e ligible based on patient's age to complete this topic [facility]-Rotavirus Vaccines Aged Out No lo nger eligible based on patient's age to complete this topic Medical Devices Implanted Type Area Hatch Supervisor Device Identifier Shelf Expiration Date Model / Serial / Lot Stent Cotton Bashir 10fr X 7cm - [id number] Implanted:Qty: 1 on 11/20/2020 by Wolf Dubose MD at [id number] / / Procedures Procedure Name Priority Date/Time Associated Diagnosis Comments HEMOGLOBIN A1C Routine 11/09/2023 CT CHEST WO IV CONTRAST Routine 11/28/2020 1:29 PM EDT COLONOSCOPY Routine 11/10/2020 1:52 PM EDT Decompensation of cirrhosis of liver (CMS/HCC) Iron deficiency anemia, unspecified iron deficiency anemia type from Last 3 Months or Most Recently Relevant to Health Maintenance Results * Hemoglobin A1c (11/09/2023) External Hemoglobin A1c 5.2 Blood Venous blood specimen / Unknown 11/09/2023 Historical Provider LAB BLOOD ORDERABLES Final R esult * CT Chest wo IV Contrast (11/28/2020 1:29 PM EDT) Anatomical Region Laterality Modality Chest Computed Tomogra phy Impressions 11/28/2020 2:07 PM EDT Moderate right pleural effusion with moderate atelectasis. Trace amount of pneumomediastinum, likely from intra-abdominal extension CRITICAL RESULT: No. COMMUNICATION: Per this written report. Signed by Octaviano Romero on 11/28/2020 2:07 PM Narrative 11/28/2020 2:07 PM EDT Exam/Procedure: CT CHEST WO IV CONTRAST ordered by URBAN PATEL, [id number] CLINICAL INDICATION: Respiratory illness, nondiagnostic xray TECHNIQUE: Multiple CT helical images were obtained from thoracic inlet through upper abdomen without administration of IV contrast. Total DLP (Dose-Length Product): 436 mGy*cm. Please note: The reported value represents the total of one or more individual components during the CT acquisition on this date and at this time, and as such, the same value may appear in more than one CT report depending on the interpreting/reporting physicians. COMPARISON: None. FINDINGS: Mediastinum and Pleura: Right internal jugular approach catheter tip at the superior cavoatrial junction. Feeding tube courses through the esophagus and into the stomach. Moderate layering right pleural effusion. Trace volume of left-sided pleural fluid. Small amount of neck base soft tissue emphysema. Severe coronary artery calcification. Small amount of anterior pneumomediastinum adjacent to the heart. Lungs: Moderate atelectasis, greater on the right. No definite consolidation. Upper Abdomen: Please see separate report for findings of the concurrently performed abdominal CT. Musculoskeletal: No suspicious lytic or sclerotic lesion. Procedure Note Octaviano Romero MD - 11/28/2020 Exam/Procedure: CT CHEST WO IV CONTRAST ordered by URBAN PATEL, [id number] CLINICAL INDICATION: Respiratory illness, nondiagnostic xray TECHNIQUE: Multiple CT helical images were obtained from thoracic inlet through upperabdomen without administration of IV contrast. Total DLP (Dose-Length Product): 436 mGy*cm. Please note: The reportedvalue represents the total of one or more individual components during theCT acquisition on this date and at this time, and as such, the same valuemay appear in more than one CT report depending on theinterpreting/reporting physicians. COMPARISON: None. FINDINGS: Mediastinum and Pleura: Right internal jugular approach catheter tip atthe superior cavoatrial junction. Feeding tube courses through theesophagus and into the stomach. Moderate layering right pleural effusion.Trace volume of left-sided pleural fluid. Small amount of neck base softtissue emphysema. Severe coronary artery calcification. Small amount ofanterior pneumomediastinum adjacent to the heart. Lungs: Moderate atelectasis, greater on the right. No definiteconsolidation. Upper Abdomen: Please see separate report for findings of the concurrentlyperformed abdominal CT. Musculoskeletal: No suspicious lytic or sclerotic lesion. IMPRESSION: Moderate right pleural effusion with moderate atelectasis. Trace amount of pneumomediastinum, likely from intra-abdominal extension CRITICAL RESULT: No. COMMUNICATION: Per this written report. Signed by Octaviano Romero on 11/28/2020 2:07 PM Urban Patel MD IMG CT PROCEDURES Final Result * Colonoscopy (11/10/2020 1:52 PM EDT) Anatomical Region Laterality Modality Endoscopy Narrative 11/10/2020 2:18 PM EDT Impression Overall Impression: - Semi-solid stools noticed in the left colon. Extensive lavage resulting in better visualization. All observed locations appeared normal, including the terminal ileum. Mild pancolonic abnormal mucosa with no bleeding. Mosaic mucosal pattern and patchy erythema consistent with portal hypertensive colopathy, which oozes easily on scope contact. One 5 mm sessile, adenomatous-appearing polyp in the sigmoid colon; completely removed en bloc by cold snare and retrieved specimen Few small diverticula in the descending colon and sigmoid colon Recommendation Awaiting pathology results. Resume previous diet and medications. Surveillance colonoscopy in 1-2 years due to inadequate bowel prep in a few areas in the left colon, improved with extensive lavage. Prep adequate in ruling out large lesions in terms of evaluation for liver transplant. Return to hospital wards. Continue cirrhosis care. Indication Decompensation of cirrhosis of liver (CMS/HCC), Iron deficiency anemia, unspecified iron deficiency anemia type Screen for Colorectal Cancer, Average Risk Medications See anesthesia record for anesthesia administered medications. Staff Staff Role Nataly Vitale MD Proceduralist Tapan Adams, PRIMO Other Boni Marie NP Endo Stablehand Ciro Castro, FREDA Endo Nurse Demetrice Andres MD Other Preprocedure A history and physical has been performed, and patient medication allergies have been reviewed. The patient's tolerance of previous anesthesia has been reviewed. The risks and benefits of the procedure and the sedation options and risks were discussed with the patient. All questions were answered and informed consent obtained. Details of the Procedure The patient underwent general anesthesia, which was administered by an anesthesia professional. The patient's blood pressure, heart rate, level of consciousness, respirations and oxygen were monitored throughout the procedure. A digital rectal exam was performed. A perianal exam was performed. The scope was introduced through the anus and advanced to the terminal ileum.Retroflexion was performed in the rectum. The quality of bowel preparation was evaluated using the [place] Bowel Preparation Scale with scores of: right colon = 2, transverse colon = 2, left colon = 2. The total BBPS score was 6. Bowel prep was not adequate. The patient's estimated blood loss was minimal (<5 mL). The procedure was not difficult. The patient tolerated the procedure well. There were no apparent complications. Required extensive lavage in left colon due to fair prep, Attestation I was present for the entire procedure Events Procedure Events Event Event Time Specimens ID Type Source Tests Collected by Time A : sigmoid colon polyp Tissue Sigmoid Colon SURGICAL PATHOLOGY EXAM Nataly Vitale MD 11/10/2020 1338 Findings All observed locations appeared normal, including the terminal ileum. Mild pancolonic abnormal mucosa with no bleeding. Mosaic mucosal pattern and patchy erythema consistent with portal hypertensive colopathy, which oozes easily on scope contact. One 5 mm sessile, adenomatous-appearing polyp in the sigmoid colon; completely removed en bloc by cold snare and retrieved specimen Few small diverticula in the descending colon and sigmoid colon us Lucila Singh MD GI PROCEDURE ORDERABLES Final Re sult from Last 3 Months or Most Recently Relevant to Health Maintenance Insurance [place] [id number] [facility] [place] [id number] [facility] Advance Directives * Full Code (Latest Code Status on File) Date Activated Date Inactivated Comments 11/16/2020 3:25 PM 12/15/2020 4:25 PM Question Answer Comments Patient has decision-making capacity? Yes * Full Code Date Activated Date Inactivated Comments 10/08/2020 3:39 AM 10/17/2020 6:04 PM Question Answer Comments Patient has decision-making capacity? Yes Care Teams Loop Tacker Relationship Specialty Start Date End Date Mendoza Johnson DO [address] [place] [address] PCP - General 11/19/23 Sylvia De La Torre RN [facility] [address] [id number] Surgical Navigator Transplant Surgery 01/11/21 [place] [address] Surgical Navigator Transplant Surgery 01/11/21 Wolf Dubose MD [address] [place] [address] Surgeon Transplant Surgery 01/11/21 Donovan Zaragoza APRN [address] [place] [address] Referring Physician Transplant Surgery 01/11/21
--- OUTSIDE RECORDS SUMMARY | 2024-12-11 09:36 | XMS_ITS | Encounter Summary ---
Author Organization [facility] Address [address] [place] [address] Care Team Providers Care Pipe Manufacture Supervisor Name Role Phone Ced Al MD Primary Care Provider + [phone] Sylvia De La Torre RN Unavailable [phone] Nyasia Moses Unavailable [phone] Wolf Dubose MD Unavailable [phone] Donovan Zaragoza APRN Unavailable [phone] Mendoza Johnson DO Primary Care Provider [phone] Encounter Details Date Type Department Care Team (Late st Contact Info) Description 11/16/2021 Lab Requisition [facility] [address] [place] [address] Will Bermudez MD [address] [facility] [address] [place] [address] Liver transplant status (CMS/HCC); 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 100-200 ng/mL Heart transplant.................... 100-300 ng/mL Liver transplant.................... 100-300 ng/mL Lung;heart/lung transplant.......... 100-350 ng/mL Test performed by LC-MS/MS at the [facility]. This test was developed and its performance characteristics determined by [facility]. It has not been cleared or approved by the FDA. The laboratory is regulated under CLIA as qualified to perform high-complexity testing. This test is used for clinical purposes. Blood Venous blood specimen / Unknown 11/16/2021 9:40 AM EDT 11/16/2021 3:08 PM EDT us Will Bermudez MD LAB BLOOD ORDERABLES Final Res ult [facility] [address] [place] [address] documented in this encounter Visit Diagnoses Diagnosis Liver transplant status (CMS/HCC) Other halfway (current) drug therapy documented in this encounter Additional Health Concerns Assessment Noted Time A fall risk assessment has been complete d for the patient 06/08/2021 8:58 AM EST A Body Mass Index follow-up plan has been documented for the patient 05/05/2022 10:19 AM EST documented as of this encounter Care Teams Pipe Manufacture Supervisor Relationship Specialty Start Date End Date Ced Al MD [address] [place] [address] PCP - General 08/20/20 11/18/23 Mendoza Johnson DO [address] [place] [address] PCP - General 11/19/23 Sylvia De La Torre RN [facility] [address] [place], [place] [id number] Surgical Navigator Transplant Surgery 01/11/21 [place] [address] Surgical Navigator Transplant Surgery 01/11/21 Wolf Dubose MD [address] [place] [address] Surgeon Transplant Surgery 01/11/21 Donovan Zaragoza APRN [address] [place] [address] Referring Physician Transplant Surgery 01/11/21 documented as of this encounter
--- OUTSIDE RECORDS SUMMARY | 2024-12-11 09:36 | XMS_ITS | Encounter Summary ---
Author Organization [facility] Address [address] [place] [address] Care Team Providers Care Watch Inspector Final Movement Name Role Phone Ced Al MD Primary Care Provider + [phone] Sylvia De La Torre RN Unavailable [phone] Nyasia Moses Unavailable [phone] Wolf Dubose MD Unavailable [phone] Donovan Zaragoza APRN Unavailable [phone] Mendoza Johnson DO Primary Care Provider [phone] Encounter Details Date Type Department Care Team (Late st Contact Info) Description 2020 Lab Requisition [facility] [address] [place] [address] Dot [facility] Encounter for general adult medical examination without [...] have Coronavirus / COVID-19? No / Unsure 12/21/2020 7:01 AM EDT documented as of this encounter [...] Date/Time Associated Diagnosis Comments CYCLOSPORINE LEVEL Routine 2020 5: 20 AM EDT Encounter for general adult medical examination without abnormal findings documented in this encounter Results * Cyclosporine (2020 5:20 AM EDT) Cyclosporine 161 100 - 400 ng/mL 2020 4:46 PM EDT [facility] Comment: Cyclosporine therapeutic range: Kidney transplant................... 100-200 ng/mL Heart transplant.................... 100-300 ng/mL Liver transplant.................... 100-300 ng/mL Lung;heart/lung transplant.......... 100-350 ng/mL Test performed by LC-MS/MS at the [facility]. This test was developed and its performance characteristics determined by [facility]. It has not been cleared or approved by the FDA. The laboratory is regulated under CLIA as qualified to perform high-complexity testing. This test is used for clinical purposes. Blood Venous blood specimen / Unknown 2020 5:20 AM EDT 2020 10:06 AM EDT us [facility] LAB BLOOD ORDERABLES Final Resul t [facility] [address] [place] [address] documented in this encounter Visit Diagnoses Diagnosis Encounter for general adult medical examination without abnormal findings documented in this encounter Additional Health Concerns Assessment Noted Time A fall risk assessment has been complete d for the patient 11/16/2020 8:39 AM EDT documented as of this encounter Care Teams Watch Inspector Final Movement Relationship Specialty Start Date End Date Ced Al MD [address] [place] [address] PCP - General 08/20/20 11/18/23 Mendoza Johnson DO [address] [place] [address] PCP - General 11/19/23 Sylvia De La Torre RN [facility] [address] [place] [address] Surgical Navigator Transplant Surgery 01/11/21 [place] [address] Surgical Navigator Transplant Surgery 01/11/21 Wolf Dubose MD [address] [id number] Surgeon Transplant Surgery 01/11/21 Donovan Zaragoza APRN [address] [place] [address] Referring Physician Transplant Surgery 01/11/21 documented as of this encounter
--- OUTSIDE RECORDS SUMMARY | 2024-12-11 09:36 | XMS_ITS | Encounter Summary ---
Author Organization [facility] Address [address] [facility] [place] [address] Care Team Providers Care General Merchandise Manager Name Role Phone Ced Al MD Primary Care Provider + [phone] Sylvia De La Torre RN Unavailable [phone] Nyasia Moses Unavailable [phone] Wolf Dubose MD Unavailable [phone] Donovan Zaragoza APRN Unavailable [phone] Mendoza Johnson DO Primary Care Provider [phone] Encounter Details Date Type Department Care Team (Late st Contact Info) Description 03/08/2022 Lab Requisition [facility] [address] [place] [address] Will Bermudez MD [address] [facility] [address] [place] [address] Liver transplant status (CMS/HCC) Social History Tobacco [...] Miscellaneous Notes * Result Encounter Note - Chichi Babb RN - 03/08/2022 12:55 PM EST CSA resulted, ready for review. documented in this encounter Plan of Treatment Not on file documented as of this encounter Procedures Procedure Name Priority Date/Time Associated Diagnosis Comments CYCLOSPORINE LEVEL Routine 03/08/2022 10 :00 AM EST Liver transplant status (CMS/HCC) documented in this encounter Results * Cyclosporine (03/08/2022 10:00 AM EST) Cyclosporine 286 100 - 400 ng/mL 03/09/2022 3:52 PM EST [facility] Comment: Cyclosporine therapeutic range: Kidney transplant................... 100-200 ng/mL Heart transplant.................... 100-300 ng/mL Liver transplant.................... 100-300 ng/mL Lung;heart/lung transplant.......... 100-350 ng/mL Test performed by LC-MS/MS at the [facility]. This test was developed and its performance characteristics determined by [facility]. It has not been cleared or approved by the FDA. The laboratory is regulated under CLIA as qualified to perform high-complexity testing. This test is used for clinical purposes. Blood Venous blood specimen / Unknown 03/08/2022 10:00 AM EST 03/08/2022 12:55 PM EST us Will Bermudez MD LAB BLOOD ORDERABLES Final Res ult [facility] [address] [place] [address] documented in this encounter Visit Diagnoses Diagnosis Liver transplant status (CMS/HCC) documented in this encounter Additional Health Concerns Assessment Noted Time A fall risk assessment has been complete d for the patient 12/09/2021 7:36 AM EDT A Body Mass Index follow-up plan has been documented for the patient 05/05/2022 10:19 AM EST documented as of this encounter Care Teams General Merchandise Manager Relationship Specialty Start Date End Date Ced Al MD [address] [place] [address] PCP - General 08/20/20 11/18/23 Mendoza Johnson DO [address] [place] [address] PCP - General 11/19/23 Sylvia De La Torre, FREDA [facility] [address] [place] [address] Surgical Navigator Transplant Surgery 01/11/21 [place] [address] Surgical Navigator Transplant Surgery 01/11/21 Wolf Dubose MD [address] [address] Surgeon Transplant Surgery 01/11/21 Donovan Zaragoza APRN [address] [place] [address] Referring Physician Transplant Surgery 01/11/21 documented as of this encounter
--- OUTSIDE RECORDS SUMMARY | 2024-12-11 09:36 | XMS_ITS | Encounter Summary ---
Author Organization [facility] Address [address] [place] [address] Care Team Providers Care Leno Sewer Name Role Phone Ced Al MD Primary Care Provider + [phone] Sylvia De La Torre RN Unavailable [phone] Nyasia Moses Unavailable [phone] Wolf Dubose MD Unavailable [phone] Donovan Zaragoza APRN Unavailable [phone] Mendoza Johnson DO Primary Care Provider [phone] Encounter Details Date Type Department Care Team (Late st Contact Info) Description 12/16/2020 Lab Requisition [facility] [address] [place] [address] [facility] Encounter for general adult medical [...] have Coronavirus / COVID-19? No / Unsure 11/16/2020 7:44 AM EDT documented as of this encounter [...] Miscellaneous Notes * Result Encounter Note - Eliza Engel RN - 12/16/2020 10:16 AM EDT Per HR, increase CSA to 275mg BID. documented in this encounter Plan of Treatment Not on file documented as of this encounter Procedures Procedure Name Priority Date/Time Associated Diagnosis Comments CYCLOSPORINE LEVEL Routine 12/16/2020 7: 16 AM EDT Encounter for general adult medical examination without abnormal findings documented in this encounter Results * (ABNORMAL) Cyclosporine (12/16/2020 7:16 AM EDT) Cyclosporine 84(L) 100 - 400 ng/mL 12/16/2020 1:40 PM EDT [facility] Comment: Cyclosporine therapeutic range: Kidney transplant................... 100-200 ng/mL Heart transplant.................... 100-300 ng/mL Liver transplant.................... 100-300 ng/mL Lung;heart/lung transplant.......... 100-350 ng/mL Test performed by LC-MS/MS at the [facility]. This test was developed and its performance characteristics determined by [facility]. It has not been cleared or approved by the FDA. The laboratory is regulated under CLIA as qualified to perform high-complexity testing. This test is used for clinical purposes. Blood Venous blood specimen / Unknown 12/16/2020 7:16 AM EDT 12/16/2020 10:18 AM EDT us [facility] BLOOD ORDERABLES Final Resul t [facility] [address] [place] [address] documented in this encounter Visit Diagnoses Diagnosis Encounter for general adult medical examination without abnormal findings documented in this encounter Additional Health Concerns Assessment Noted Time A fall risk assessment has been complete d for the patient 11/16/2020 8:39 AM EDT documented as of this encounter Care Teams Leno Sewer Relationship Specialty Start Date End Date Ced Al MD [address] [place] [address] PCP - General 08/20/20 11/18/23 Mendoza Johnson DO [address] [place] [address] PCP - General 11/19/23 Sylvia De La Torre RN [facility] [address] [place] [address] Surgical Navigator Transplant Surgery 01/11/21 Nyasia [place] [address] Surgical Navigator Transplant Surgery 01/11/21 Wolf Dubose MD [address] [place] [address] Surgeon Transplant Surgery 01/11/21 Donovan Zaragoza APRN [address] [place] [address] Referring Physician Transplant Surgery 01/11/21 documented as of this encounter
--- OUTSIDE RECORDS SUMMARY | 2024-12-11 09:36 | XMS_ITS | Encounter Summary ---
Author Organization [facility] Address [address] [place] [address] Care Team Providers Care Complaint Adjuster Name Role Phone Ced Al MD Primary Care Provider + [phone] Sylvia De La Torre RN Unavailable [phone] Nysaia Moses Unavailable [phone] Wolf Dubose MD Unavailable [phone] Donovan Zaragoza APRN Unavailable [phone] Mendoza Johnson DO Primary Care Provider [phone] Encounter Details Date Type Department Care Team (Late st Contact Info) Description 12/17/2020 Lab Requisition [facility] [address] [place] [address] Dot Monge Encounter for general adult medical [...] Date/Time Associated Diagnosis Comments CYCLOSPORINE LEVEL Routine 12/17/2020 5: 27 AM EDT Encounter for general adult medical examination without abnormal findings documented in this encounter Results * (ABNORMAL) Cyclosporine (12/17/2020 5:27 AM EDT) [facility] Cyclosporine 88(L) 100 - 400 ng/mL 12/17/2020 1:43 PM EDT [facility] Comment: Cyclosporine therapeutic range: Kidney transplant................... 100-200 ng/mL Heart transplant.................... 100-300 ng/mL Liver transplant.................... 100-300 ng/mL Lung;heart/lung transplant.......... 100-350 ng/mL Test performed by LC-MS/MS at the [facility]. This test was developed and its performance characteristics determined by [facility]. It has not been cleared or approved by the FDA. The laboratory is regulated under CLIA as qualified to perform high-complexity testing. This test is used for clinical purposes. Blood Venous blood specimen / Unknown 12/17/2020 5:27 AM EDT 12/17/2020 8:54 AM EDT us [facility] BLOOD ORDERABLES Final Resul t [facility] [address] [place] [address] documented in this encounter Visit Diagnoses Diagnosis Encounter for general adult medical examination without abnormal findings documented in this encounter Additional Health Concerns Assessment Noted Time A fall risk assessment has been complete d for the patient 11/16/2020 8:39 AM EDT documented as of this encounter Care Teams Complaint Adjuster Relationship Specialty Start Date End Date Ced Al MD [address] [place] [address] PCP - General 08/20/20 11/18/23 Mendoza Johnson DO [address] [place] [address] PCP - General 11/19/23 Sylvia De La Torre RN [facility] [address] [place] [phone] Surgical Navigator Transplant Surgery 01/11/21 [place] [address] Surgical Navigator Transplant Surgery 01/11/21 Wolf Dubose MD [address] [place] [address] Surgeon Transplant Surgery 01/11/21 Donovan Zaragoza APRN [address] [place] [address] Referring Physician Transplant Surgery 01/11/21 documented as of this encounter
--- OUTSIDE RECORDS SUMMARY | 2024-12-11 09:36 | XMS_ITS | Encounter Summary ---
Author Organization [facility] Address [address] [place] [address] Care Team Providers Care Bulb Filler Name Role Phone Ced Al MD Primary Care Provider + [phone] Sylvia De La Torre RN Unavailable [phone] Nyasia Moses Unavailable [phone] Wolf Dubose MD Unavailable [phone] Donovan Zaragoza APRN Unavailable [phone] Mendoza Johnson DO Primary Care Provider [phone] Encounter Details Date Type Department Care Team (Late st Contact Info) Description 12/27/2020 Lab Requisition [facility] [address] [place] [address] Dot [facility]ge Encounter for general adult medical examination without abnormal findings Social History Tobacco Use Types Packs/Day Years Used Date Smoking Tobacco: Never Cigarettes 2 30 - 09/07/2020 Smokeless Tobacco: Never Alcohol Use [...] have Coronavirus / COVID-19? No / Unsure 12/29/2020 2:23 PM EDT documented as of this encounter Functional [...] Date/Time Associated Diagnosis Comments CYCLOSPORINE LEVEL Routine 12/27/2020 4: 46 AM EDT Encounter for general adult medical examination without abnormal findings documented in this encounter Results * (ABNORMAL) Cyclosporine (12/27/2020 4:46 AM EDT) Cyclosporine 70(L) 100 - 400 ng/mL 12/28/2020 8:10 AM EDT [facility] Comment: Cyclosporine therapeutic range: Kidney transplant................... 100-200 ng/mL Heart transplant.................... 100-300 ng/mL Liver transplant.................... 100-300 ng/mL Lung;heart/lung transplant.......... 100-350 ng/mL Test performed by LC-MS/MS at the [facility]. This test was developed and its performance characteristics determined by [facility]. It has not been cleared or approved by the FDA. The laboratory is regulated under CLIA as qualified to perform high-complexity testing. This test is used for clinical purposes. Blood Venous blood specimen / Unknown 12/27/2020 4:46 AM EDT 12/27/2020 11:00 AM EDT us [facility] BLOOD ORDERABLES Final Resul t [facility] [address] [place] [address] documented in this encounter Visit Diagnoses Diagnosis Encounter for general adult medical examination without abnormal findings documented in this encounter Additional Health Concerns Assessment Noted Time A fall risk assessment has been complete d for the patient 11/16/2020 8:39 AM EDT documented as of this encounter Care Teams Bulb Filler Relationship Specialty Start Date End Date Ced Al MD [address] [place] [address] PCP - General 08/20/20 11/18/23 Mendoza Johnson DO [address] [place] [address] PCP - General 11/19/23 Sylvia De La Torre RN [facility] [address] [place] [address] Surgical Navigator Transplant Surgery 01/11/21 Nyasia Moses [place] [phone] Surgical Navigator Transplant Surgery 01/11/21 Wolf Dubose MD [address] [address] Surgeon Transplant Surgery 01/11/21 Donovan Zaragoza APRN [address] [place] [address] Referring Physician Transplant Surgery 01/11/21 documented as of this encounter
--- OUTSIDE RECORDS SUMMARY | 2024-12-11 09:36 | XMS_ITS | Encounter Summary ---
Author Organization [facility] Address [address] [place] [address] Care Team Providers Care Civil Litigation Attorney Name Role Phone Ced Al MD Primary Care Provider + [phone] Sylvia De La Torre RN Unavailable [phone] Nyasia Moses Unavailable [phone] Wolf Dubose MD Unavailable [phone] Donovan Zaragoza APRN Unavailable [phone] Mendoza Johnson DO Primary Care Provider [phone] Encounter Details Date Type Department Care Team (Late st Contact Info) Description 11/13/2022 Orders Only External Location [address] [place] [address] Provider, External Social History Tobacco Use Types [...] 3:33 PM EDT Carla Mandujano RN * Over the past 2 weeks, how often have you been bothered by any of the following problems? Question Answer Date of Assessment Author Little interest or pleasure in doing things Not at all 11/14/2022 10:13 AM EDT Rachel Hernandes Feeling down, depressed, or hopeless Not at all 11/14/2022 10:13 AM YANETT Rachel Hernandes Patient Health Questionnaire -2 Score 0 11/14/2022 10:13 AM YANETT Rachel Hernandes documented as of this encounter Mental Status [...] Date/Time Associated Diagnosis Comments XR OUTSIDE IMAGES 11/13/2022 9:29 AM EDT documented in this encounter Results * XR OUTSIDE IMAGES (11/13/2022 9:29 AM EDT) Anatomical Region Laterality Modality Radiographic Maru ging 11/13/2022 9:29 AM EDT us External Provider IMG XR PROCEDURES Final Result documented in this encounter Visit Diagnoses Not on filedocumented in this encounter Additional Health Concerns Assessment Noted Time A fall risk assessment has been complete d for the patient 12/09/2021 7:36 AM EDT A Body Mass Index follow-up plan has been documented for the patient 10/27/2022 3:21 PM EDT documented as of this encounter Care Teams Civil Litigation Attorney Relationship Specialty Start Date End Date Ced Al MD [address] [place] [address] PCP - General 08/20/20 11/18/23 Mendoza Johnson DO [address] [place] [address] PCP - General 11/19/23 Sylvia De La Torre RN [facility] [address] [place] [address] Surgical Navigator Transplant Surgery 01/11/21 Nyasia Moses [place] [id number] Surgical Navigator Transplant Surgery 01/11/21 Wolf Dubose MD [address] [address] Surgeon Transplant Surgery 01/11/21 Donovan Zaragoza APRN [address] [place] [address] Referring Physician Transplant Surgery 01/11/21 documented as of this encounter
--- OUTSIDE RECORDS SUMMARY | 2024-12-11 09:36 | XMS_ITS | Encounter Summary ---
Author Organization [facility] Address [address] [place] [address] Care Team Providers Care Staff Command And Control Officer Name Role Phone Ced Al MD Primary Care Provider + [phone] Sylvia De La Torre RN Unavailable [phone] Nyasia Moses Unavailable [phone] Wolf Dubose MD Unavailable [phone] Donovan Zaragoza APRN Unavailable [phone] Mendoza Johnson DO Primary Care Provider [phone] Encounter Details Date Type Department Care Team (Late st Contact Info) Description 04/19/2022 Lab Requisition [facility] [address] [place] [address] Karla Kate, BROADCAST DESIGNER [address] [facility] [address] [place] [address] Liver transplant status (CMS/HCC); Other care home [...] Date/Time Associated Diagnosis Comments CYCLOSPORINE LEVEL Routine 04/19/2022 10 :25 AM EST Liver transplant status (CMS/HCC) Other 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 100-200 ng/mL Heart transplant.................... 100-300 ng/mL Liver transplant.................... 100-300 ng/mL Lung;heart/lung transplant.......... 100-350 ng/mL Test performed by LC-MS/MS at the [facility]. This test was developed and its performance characteristics determined by [facility]. It has not been cleared or approved by the FDA. The laboratory is regulated under CLIA as qualified to perform high-complexity testing. This test is used for clinical purposes. Blood Venous blood specimen / Unknown 04/19/2022 10:25 AM EST 04/19/2022 2:25 PM EST us Karla Kate APRN LAB BLOOD ORDERABLES Final R esult [facility] [address] [place] [address] documented in this encounter Visit Diagnoses Diagnosis [...] documented as of this encounter Care Teams Staff Command And Control Officer Relationship Specialty Start Date End Date Ced Al MD [address] [place] [address] PCP - General 08/20/20 11/18/23 Mendoza Johnson DO [address] [place], [place] [id number] PCP - General 11/19/23 Sylvia De La Torre RN [facility] [address] [place] [address] Surgical Navigator Transplant Surgery 01/11/21 [place] [address] Surgical Navigator Transplant Surgery 01/11/21 Wolf Dubose MD [address] [place] [address] Surgeon Transplant Surgery 01/11/21 Donovan Zaragoza APRN [address] [place] [address] Referring Physician Transplant Surgery 01/11/21 documented as of this encounter
--- OUTSIDE RECORDS SUMMARY | 2024-12-11 09:36 | XMS_ITS | Encounter Summary ---
Author Organization [facility] Address [address] [place] [address] Care Team Providers Care Canoe Builder Name Role Phone Ced Al MD Primary Care Provider + [phone] Sylvia De La Torre RN Unavailable [phone] Nyasia Moses Unavailable [phone] Wolf Dubose MD Unavailable [phone] Donovan Zaragoza APRN Unavailable [phone] Mendoza Johnson DO Primary Care Provider [phone] Encounter Details Date Type Department Care Team (Late st Contact Info) Description 05/10/2022 Lab Requisition [facility] [address] [place] [address] Karla Kate, WIND TUNNEL MECHANIC [address] [facility] [address] [place] [address] Liver transplant status (CMS/HCC); Other shelter (current) drug therapy Social History Tobacco Use [...] Date/Time Associated Diagnosis Comments CYCLOSPORINE LEVEL Routine 05/10/2022 10 :37 AM EST Liver transplant status (CMS/HCC) Other termite helper (current) drug therapy documented in this encounter Results * Cyclosporine (05/10/2022 10:37 AM EST) Cyclosporine 125 100 - 400 ng/mL 05/11/2022 1:39 PM EST [facility] Comment: Cyclosporine therapeutic range: Kidney transplant................... 100-200 ng/mL Heart transplant.................... 100-300 ng/mL Liver transplant.................... 100-300 ng/mL Lung;heart/lung transplant.......... 100-350 ng/mL Test performed by LC-MS/MS at the [facility]. This test was developed and its performance characteristics determined by [facility]. It has not been cleared or approved by the FDA. The laboratory is regulated under CLIA as qualified to perform high-complexity testing. This test is used for clinical purposes. Blood Venous blood specimen / Unknown 05/10/2022 10:37 AM EST 05/10/2022 3:14 PM EST us Karla Kate APRN LAB BLOOD ORDERABLES Final R esult [facility] [address] [place] [address] documented in this encounter Visit Diagnoses Diagnosis Liver transplant status (CMS/HCC) Other shelter (current) drug therapy documented in this encounter Additional Health Concerns Assessment Noted Time A fall risk assessment has been complete d for the patient 12/09/2021 7:36 AM EDT A Body Mass Index follow-up plan has been documented for the patient 05/05/2022 10:19 AM EST documented as of this encounter Care Teams Canoe Builder Relationship Specialty Start Date End Date Ced Al MD [address] [place] [address] PCP - General 08/20/20 11/18/23 Mendoza Johnson DO [address] [place], [place] [id number] PCP - General 11/19/23 Sylvia De La Torre RN [facility]IST[facility] [address] [place] [address] Surgical Navigator Transplant Surgery 01/11/21 [place] [address] Surgical Navigator Transplant Surgery 01/11/21 Wolf Dubose MD [address] [place] [address] Surgeon Transplant Surgery 01/11/21 Donovan Zaragoza APRN [address] [place] [address] Referring Physician Transplant Surgery 01/11/21 documented as of this encounter
[2024-12-11 10:04] LABS: Hematocrit 31.7 % (42.0-52.0); Hemoglobin 10.1 g/dL (14.1-18.0); Immature Granulocytes % 0.2 %; Mean Corpuscular HGB Conc 31.9 g/dL (31.8-35.4); Mean Corpuscular Hemoglobin 28.8 pg (27.0-31.2); Mean Corpuscular Volume 90.3 fl (80-94); Nucleated Red Blood Cells % 0 %; Platelet Count 156 K/mm3 (142-424); Red Blood Count 3.51 M/mm3 (4.60-6.20); Red Cell Distribution Width-SD 43.0 fL; White Blood Count 6.1 K/mm3 (4.8-10.8)
[2024-12-11 10:30] LABS: Alanine Aminotransferase 14 U/L (12-78); Albumin Level 4.2 g/dl (3.5-5.0); Alkaline Phosphatase 116 U/L (38-126); Anion Gap 10.7 mEq/L (5-15); Aspartate Amino Transferase 23 U/L (17-59); Bilirubin,Direct 0.0 mg/dl (0.0-0.4); Bilirubin,Indirect 0.5 mg/dL (0.0-0.9); Bilirubin,Total 0.5 mg/dl (0.2-1.3); Bilirubin,Unconjugated 0.5 mg/dL (0.0-1.1); Blood Urea Nitrogen 23 mg/dl (9-20); Calcium 8.8 mg/dl (8.4-10.2); Carbon Dioxide 31 mmol/L (22.0-30.0); Chloride 103 mmol/L (98-107); Cholesterol 121 mg/dl (140-200); Creatinine,Serum 2.00 mg/dl (0.66-1.25); Estimated Glomerular Filt Rate 33 ml/min (>60); GFR (African American) 40 ML/MIN (>60); Glucose 96 mg/dl (74-100); HDL Cholesterol 30 mg/dl (40-60); Magnesium 1.7 mg/dl (1.6-2.3); Potassium 3.7 mmoL/L (3.5-5.1); Sodium 141 mmol/L (136-145); Total Protein,Serum 6.4 g/dl (6.3-8.2); Triglycerides 115 mg/dl (30-150)
[2024-12-11 10:47] LABS: Free T4 (Free Thyroxine) 1.33 ng/dl (0.78-2.19)
--- NOTE | 2024-12-11 13:00 | CA_ITS ---
FINAL REPORT TECHNIQUE: Ultrasound images of the deep venous system were obtained from the left groin to the calf veins. CLINICAL HISTORY: EDEMA LLE FINDINGS: The deep venous system is normally compressible. Normal flow is identified. IMPRESSION: No evidence of left lower extremity DVT. Reviewed, Interpreted and Dictated by Bakari Perez MD Transcribed by Carmelina Martins Authenticated and [facility]
[2024-12-11 13:29] LABS: Thyroid Stimulating Hormone 4.10 uIU/mL (0.465-4.68)
== END 2024-12-11 23:59 | disposition home or self-care (01) ==
PROVIDERS: PCP Family Medicine; Visit Provider Physician Assistant
DX: I25.10 Atherosclerotic heart disease of native coronary artery without angina pectoris (principal); I10 Essential (primary) hypertension; R60.0 Localized edema
CPT/HCPCS: 36415; 80048; 80061; 80076; 83735; 84439; 84443; 85025; 93971

== ENCOUNTER 2024-12-17 15:03 | Outpatient (CLI) | payer MEDICARE, MEDICAID, SELFPAY ==
--- OUTSIDE RECORDS SUMMARY | 2024-12-17 15:05 | XMS_ITS ---
Author Organization [facility] Address [address] [place] [address] Care Team Providers Care Pupil Personnel Worker Name Role Phone Sylvia De La Torre RN Unavailable [phone] Nyasia Moses Unavailable [phone] Wolf Dubose MD Unavailable [phone] Donovan Zaragoza APRN Unavailable [phone] Mendoza Johnson DO Primary Care Provider [phone] Transplant Episode Liver Recipient [facility] ([place], [place]) [facility] Organ Received: Liver Transplanted on 11/21/2020 Marked as Active Follow-up on 11/21/2020 Liver CoordinatorChichi Babb RN Fax: N/A Email: N/A [place] Organ Diagnosis Organ Primary Contributory Liver Alcoholic [...] file SARS CoV-2 No results on file HCV BRITNI HCV BRITNI: Negative HIV BRITNI HIV BRITNI: Negative HBV BRITNI HBV BRITNI: Negative Care Team Name Role Phone Fax Email Chichi Babb, FREDA Liver Coordinator [phone] N/A N /A Wolf Dubose MD Surgeon [phone] N/A LAUREL RiderW Inspector Electromechanical [phone] N/A N/A Shona Guerrero APRN Referring Physician [phone] N/A Ced Al MD Primary Care Provider [phone] N/A Will Bermudez MD Transplant Physician [phone] N/A Events Post-Transplant Pre-Transplant Admitted: 11/16/2020 Referred: 09/20/2020 Transplanted: 11/21/2020 Evaluation began: 1 Discharged: 12/15/2020 Committee: 10/18/2020 Center waitlisted: 1
--- OUTSIDE RECORDS SUMMARY | 2024-12-17 15:05 | XMS_ITS | Encounter Summary ---
Author Organization [facility] Address [address] [place] [address] Care Team Providers Care Senior Medical Writer Name Role Phone Ced Al MD Primary Care Provider + [phone] Sylvia De La Torre RN Unavailable [phone] Nyasia Moses Unavailable [phone] Wolf Dubose MD Unavailable [phone] Donovan Zaragoza APRN Unavailable [phone] Mendoza Johnson DO Primary Care Provider [phone] Encounter Details Date Type Department Care Team (Late st Contact Info) Description 03/28/2021 Lab Requisition [facility] [address] [place] [address] Karla Kate, FEATHER EDGER [address] [facility] [address] [place] [address] Liver transplant status (CMS/HCC); 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 100-200 ng/mL Heart transplant.................... 100-300 ng/mL Liver transplant.................... 100-300 ng/mL Lung;heart/lung transplant.......... 100-350 ng/mL Test performed by LC-MS/MS at the [facility]. This test was developed and its performance characteristics determined by [facility]. It has not been cleared or approved by the FDA. The laboratory is regulated under CLIA as qualified to perform high-complexity testing. This test is used for clinical purposes. 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 documented in this encounter Additional Health Concerns Assessment Noted Time A fall risk assessment has been complete d for the patient 03/08/2021 8:05 AM EST documented as of this encounter Care Teams Senior Medical Writer Relationship Specialty Start Date End Date Ced Al MD [address] [place] [address] PCP - General 08/20/20 11/18/23 Mendoza Johnson DO [address] [place] [address] PCP - General 11/19/23 Sylvia De La Torre RN [facility]PL[facility]MINISTRATION [address] [place] [address] Surgical Navigator Transplant Surgery 01/11/21 Nyasia Moses [place] [id number] Surgical Navigator Transplant Surgery 01/11/21 Wolf Dubose MD [address] [place] [address] Surgeon Transplant Surgery 01/11/21 Donovan Zaragoza APRN [address] [place] [address] Referring Physician Transplant Surgery 01/11/21 documented as of this encounter
--- OUTSIDE RECORDS SUMMARY | 2024-12-17 15:05 | XMS_ITS | Encounter Summary ---
Author Organization [facility] Address [address] [place] [address] Care Team Providers Care Circle Beveler Name Role Phone Ced Al MD Primary Care Provider + [phone] Sylvia De La Torre RN Unavailable [phone] Nyasia Moses Unavailable [phone] Wolf Dubose MD Unavailable [phone] Donovan Zaragoza APRN Unavailable [phone] Mendoza Johnson DO Primary Care Provider [phone] Encounter Details Date Type Department Care Team (Late st Contact Info) Description 01/22/2021 Lab Requisition [facility] [address] [place] [address] Will Bermudez MD [address] [facility] [address] [place] [address] Encounter for general adult medical examination without [...] 400 ng/mL 01/23/2021 1:45 PM EDT [facility] Comment: Cyclosporine therapeutic range: Kidney transplant................... 100-200 ng/mL Heart transplant.................... 100-300 ng/mL Liver transplant.................... 100-300 ng/mL Lung;heart/lung transplant.......... 100-350 ng/mL Test performed by LC-MS/MS at the [facility]. This test was developed and its performance characteristics determined by [facility]. It has not been cleared or approved by the FDA. The laboratory is regulated under CLIA as qualified to perform high-complexity testing. This test is used for clinical purposes. Blood Venous blood specimen / Unknown 01/22/2021 12:09 PM EDT 01/22/2021 3:40 PM EDT us Will Bermudez MD LAB BLOOD ORDERABLES Final Res ult [facility] [address] [place] [address] documented in this encounter Visit Diagnoses Diagnosis Encounter for general adult medical examination without abnormal findings documented in this encounter Additional Health Concerns Assessment Noted Time A fall risk assessment has been complete d for the patient 01/04/2021 7:28 AM EDT documented as of this encounter Care Teams Circle Beveler Relationship Specialty Start Date End Date Ced Al MD [address] [place] [address] PCP - General 08/20/20 11/18/23 Mendoza Johnson DO [address] [place] [address] PCP - General 11/19/23 Sylvia De La Torre RN [facility]PL[facility] ADMINISTRATION [address] [place] [address] Surgical Navigator Transplant Surgery 01/11/21 [place] [address] Surgical Navigator Transplant Surgery 01/11/21 Wolf Dubose MD [address] [place] [address] Surgeon Transplant Surgery 01/11/21 Donovan Zaragoza APRN [address] [place] [address] Referring Physician Transplant Surgery 01/11/21 documented as of this encounter
--- OUTSIDE RECORDS SUMMARY | 2024-12-17 15:05 | XMS_ITS | Encounter Summary ---
Author Organization [facility] Address [address] [place] [address] Care Team Providers Care Lead Custodian Name Role Phone Ced Al MD Primary Care Provider + [phone] Sylvia De La Torre RN Unavailable [phone] Nyasia Moses Unavailable [phone] Wolf Dubose MD Unavailable [phone] Donovan Zaragoza APRN Unavailable [phone] Mendoza Johnson DO Primary Care Provider [phone] Encounter Details Date Type Department Care Team (Late st Contact Info) Description 06/14/2022 Lab Requisition [facility] [address] [place] [address] Will Bermudez MD [address] [facility] [address] [place] [address] Liver transplant status (CMS/HCC) Social History Tobacco [...] developed and its performance characteristics determined by [facility]. It has not been cleared or approved by the FDA. The laboratory is regulated under CLIA as qualified to perform high-complexity testing. This test is used for clinical purposes. Blood Venous blood specimen / Unknown 06/14/2022 9:36 AM EST 06/14/2022 1:05 PM EST us Will Bermudez MD LAB BLOOD ORDERABLES Final Res ult [facility] [address] [place] [address] documented in this encounter Visit Diagnoses Diagnosis Liver transplant status (CMS/HCC) documented in this encounter Additional Health Concerns Assessment Noted Time A fall risk assessment has been complete d for the patient 12/09/2021 7:36 AM EDT A Body Mass Index follow-up plan has been documented for the patient 05/05/2022 10:19 AM EST documented as of this encounter Care Teams Lead Custodian Relationship Specialty Start Date End Date Ced Al MD [address] [place] [address] PCP - General 08/20/20 11/18/23 Mendoza Johnson DO [address] [place] [address] PCP - General 11/19/23 Sylvia De La Torre RN [facility]TRANSPLANT ADMINISTRATION [address] [place] [address] Surgical Navigator Transplant Surgery 01/11/21 Nyasia Moses [place] [id number] Surgical Navigator Transplant Surgery 01/11/21 Wolf Dubose MD [address] [address] Surgeon Transplant Surgery 01/11/21 Donovan Zaragoza APRN [address] [place] [address] Referring Physician Transplant Surgery 01/11/21 documented as of this encounter
--- OUTSIDE RECORDS SUMMARY | 2024-12-17 15:05 | XMS_ITS | Encounter Summary ---
Author Organization [facility] Address [address] [place] [address] Care Team Providers Care Research Program Manager Name Role Phone Ced Al MD Primary Care Provider + [phone] Sylvia De La Torre RN Unavailable [phone] Nyasia Moses Unavailable [phone] Wolf Dubose MD Unavailable [phone] Donovan Zaragoza APRN Unavailable [phone] Mendoza Johnson DO Primary Care Provider [phone] Encounter Details Date Type Department Care Team (Late st Contact Info) Description 03/22/2022 Lab Requisition [facility] [address] [place] [address] Karla Kate, ELECTRONICS DESIGN ENGINEER [address] [facility] [address] [place] [address] Liver transplant status (CMS/HCC); 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 100-200 ng/mL Heart transplant.................... 100-300 ng/mL Liver transplant.................... 100-300 ng/mL Lung;heart/lung transplant.......... 100-350 ng/mL Test performed by LC-MS/MS at the [facility]. This test was developed and its performance characteristics determined by [facility]. It has not been cleared or approved by the FDA. The laboratory is regulated under CLIA as qualified to perform high-complexity testing. This test is used for clinical purposes. Blood Venous blood specimen / Unknown 03/22/2022 10:10 AM EST 03/22/2022 2:32 PM EST us Karla Kate ELECTRONICS DESIGN ENGINEER LAB BLOOD ORDERABLES Final R esult [facility] [address] [place] [address] documented in this encounter Visit Diagnoses Diagnosis Liver transplant status (CMS/HCC) Other [place] [facility] (current) drug therapy Chronic viral hepatitis C [...] documented as of this encounter Care Teams Research Program Manager Relationship Specialty Start Date End Date Ced Al MD [address] [place] [address] PCP - General 08/20/20 11/18/23 Mendoza Johnson DO [address] [place] [address] PCP - General 11/19/23 Sylvia De La Torre, RN [facility]TR[facility]PL[facility] ADMINISTRATION [address] [place] [address] Surgical Navigator Transplant Surgery 01/11/21 [place] [address] Surgical Navigator Transplant Surgery 01/11/21 Wolf Dubose MD [address] [address] Surgeon Transplant Surgery 01/11/21 Donovan Zaragoza APRN [address] [address] Referring Physician Transplant Surgery 01/11/21 documented as of this encounter
--- OUTSIDE RECORDS SUMMARY | 2024-12-17 15:05 | XMS_ITS | Encounter Summary ---
Author Organization [facility] Address [address] [place] [address] Care Team Providers Care Power Checker Name Role Phone Ced Al MD Primary Care Provider + [phone] Sylvia De La Torre RN Unavailable [phone] Nyasia Moses Unavailable [phone] Wolf Dubose MD Unavailable [phone] Donovan Zaragoza APRN Unavailable [phone] Mendoza Johnson DO Primary Care Provider [phone] Encounter Details Date Type Department Care Team (Late st Contact Info) Description 02/21/2021 Lab Requisition [facility] [address] [place] [address] Karla Kate, TABLEAU LEAD [address] [facility] [address] [place] [address] Liver transplant status (CMS/HCC) Social History Tobacco [...] ng/mL Test performed by LC-MS/MS at the [facility]. This test was developed and its performance characteristics determined by [facility]. It has not been cleared or approved by the FDA. The laboratory is regulated under CLIA as qualified to perform high-complexity testing. This test is used for clinical purposes. Blood Venous blood specimen / Unknown 02/21/2021 10:47 AM EST 02/21/2021 4:16 PM EST us Karla Kate TABLEAU LEAD LAB BLOOD ORDERABLES Final R esult [facility] [address] [place] [address] documented in this encounter Visit Diagnoses Diagnosis Liver transplant status (CMS/HCC) documented in this encounter Additional Health Concerns Assessment Noted Time A fall risk assessment has been complete d for the patient 02/16/2021 9:03 AM EST documented as of this encounter Care Teams Power Checker Relationship Specialty Start Date End Date Ced Al MD [address] [place] [address] PCP - General 08/20/20 11/18/23 Mendoza Johnson DO [address] [place], [place] [address] PCP - General 11/19/23 Sylvia De La Torre RN CH-TRANSPLANT ADMINISTRATION [address] [place] [address] Surgical Navigator Transplant Surgery 01/11/21 [place] [address] Surgical Navigator Transplant Surgery 01/11/21 Wolf Dubose MD [address] [place] [address] Surgeon Transplant Surgery 01/11/21 Donovan Zaragoza APRN [address] [place] [address] Referring Physician Transplant Surgery 01/11/21 documented as of this encounter
--- OUTSIDE RECORDS SUMMARY | 2024-12-17 15:05 | XMS_ITS | Encounter Summary ---
Author Organization [facility] Address [address] [facility] [place] [address] Care Team Providers Care Grad Intern Name Role Phone Ced Al MD Primary Care Provider + [phone] Sylvia De La Torre RN Unavailable [phone] Nyasia Moses Unavailable [phone] Wolf Dubose MD Unavailable [phone] Donovan Zaragoza APRN Unavailable [phone] Mendoza Johnson DO Primary Care Provider [phone] Encounter Details Date Type Department Care Team (Late st Contact Info) Description 07/08/2021 Lab Requisition [facility] [address] [place] [address] Will Bermudez MD [address] [facility] [address] [place] [address] Liver transplant status (CMS/HCC) Social History Tobacco [...] - 400 ng/mL 07/09/2021 12:59 PM EDT [facility] Comment: Cyclosporine therapeutic range: Kidney transplant................... 100-200 ng/mL Heart transplant.................... 100-300 ng/mL Liver transplant.................... 100-300 ng/mL Lung;heart/lung transplant.......... 100-350 ng/mL Test performed by LC-MS/MS at the [facility]. This test was developed and its performance characteristics determined by [facility]. It has not been cleared or approved by the FDA. The laboratory is regulated under CLIA as qualified to perform high-complexity testing. This test is used for clinical purposes. Blood Venous blood specimen / Unknown 07/08/2021 1:35 PM EDT 07/08/2021 4:54 PM EDT us Will Bermudez MD LAB BLOOD ORDERABLES Final Res ult [facility] [address] [place] [address] documented in this encounter Visit Diagnoses Diagnosis Liver transplant status (CMS/HCC) documented in this encounter Additional Health Concerns Assessment Noted Time A fall risk assessment has been complete d for the patient 06/08/2021 8:58 AM EST A Body Mass Index follow-up plan has been documented for the patient 05/05/2022 10:19 AM EST documented as of this encounter Care Teams Grad Intern Relationship Specialty Start Date End Date Ced Al MD [address] [place] [address] PCP - General 08/20/20 11/18/23 Mendoza Johnson DO [address] [place] [address] PCP - General 11/19/23 Sylvia De La Torre RN CH-TRANSPLANT ADMINISTRATION [address] [place] [address] Surgical Navigator Transplant Surgery 01/11/21 [place] [address] Surgical Navigator Transplant Surgery 01/11/21 Wolf Dubose MD [address] [place] [address] Surgeon Transplant Surgery 01/11/21 Donovan Zaragoza APRN [address] [place] [address] Referring Physician Transplant Surgery 01/11/21 documented as of this encounter
--- OUTSIDE RECORDS SUMMARY | 2024-12-17 15:05 | XMS_ITS | Clinical Summary ---
Author Organization [facility] Address [address] [place] [address] Care Team Providers Care Finisher Tailor Apprentice Name Role Phone Sylvia De La Torre RN Unavailable [phone] Nyasia Moses Unavailable [phone] Wolf Dubose MD Unavailable Donovan Zaragoza APRN Unavailable [phone] Mendoza Johnson DO Primary Care Provider [phone] Allergies No known active allergies Medications levothyroxine [...] hours if needed. 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, implant, a nd graft 12/29/2020 Overview (12/29/2020): Added automatically from request for surgery [id number] Secondary esophageal varices 11/20/2020 End stage liver [...] Influenza, injectable, quadrivalent, preservativ e free 03/10/2022 [employer] COVID-19 Biv alent ([place] Cap) 12+ years [...] Scan 1954 [facility]-Medicare Annual Wellness (AWV) 1954 [facility]-Infant/Child/Adol SDOH Screenings 1954 [facility]- SDOH Screenings 1972 [...] 04/15/2021 10/13/2020 [facility]-Lung Cancer Screening 11/28/2021 11/28/2020 [id number] Vaccine (3 - Pfizer risk series) 02/08/2022 [...] this topic Medical Devices Implanted Type Area Stockroom Selector Device Identifier Shelf Expiration Date Model / Serial / Lot Stent Cotton Bashir 10fr X 7cm - [id number] Implanted:Qty: 1 on 11/20/2020 by Wolf Dubose MD at [id number] / / Procedures Procedure Name Priority Date/Time [...] WO IV CONTRAST ordered by URBAN PATEL, [id number] CLINICAL INDICATION: Respiratory illness, nondiagnostic xray TECHNIQUE: [...] WO IV CONTRAST ordered by URBAN PATEL, [id number] CLINICAL INDICATION: Respiratory illness, nondiagnostic xray TECHNIQUE: [...] Adams, PRIMO Other Boni Marie NP Endo Powder Blender And Pourer Ciro Castro, FREDA Endo Nurse Demetrice Andres [...] of bowel preparation was evaluated using the [place] Bowel Preparation Scale with scores of: right [...] Relevant to Health Maintenance Insurance EDUARDO RICH [id number] [facility] [phone] [facility] Advance Directives * Full Code (Latest Code Status on File) Date Activated Date Inactivated Comments 11/16/2020 3:25 PM 12/15/2020 4:25 PM Question Answer Comments Patient has decision-making capacity? Yes * Full Code Date Activated Date Inactivated Comments 10/08/2020 3:39 AM 10/17/2020 6:04 PM Question Answer Comments Patient has decision-making capacity? Yes Care Teams Finisher Tailor Apprentice Relationship Specialty Start Date End Date Mendoza Johnson DO [address] [place] [address] PCP - General 11/19/23 Sylvia De La Torre RN [facility] [address] [phone] Surgical Navigator Transplant Surgery 01/11/21 [place] [address] Surgical Navigator Transplant Surgery 01/11/21 Wolf Dubose MD [address] [place] [address] Surgeon Transplant Surgery 01/11/21 Donovan Zaragoza APRN [address] [place] [address] Referring Physician Transplant Surgery 01/11/21
--- OUTSIDE RECORDS SUMMARY | 2024-12-17 15:05 | XMS_ITS | Encounter Summary ---
Author Organization [facility] Address [address] [place] [address] Care Team Providers Care Operational Risk Analyst Name Role Phone Ced Al MD Primary Care Provider + [phone] Sylvia De La Torre RN Unavailable [phone] Nyasia Moses Unavailable [phone] Wolf Dubose MD Unavailable [phone] Donovan Zaragoza APRN Unavailable [phone] Mendoza Johnson DO Primary Care Provider [phone] Encounter Details Date Type Department Care Team (Late st Contact Info) Description 05/10/2022 Lab Requisition [facility] [address] [place] [address] Karla Kate, TELEPRINTER INSTALLER [address] [facility] [address] [place] [address] Liver transplant status (CMS/HCC); 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 100-200 ng/mL Heart transplant.................... 100-300 ng/mL Liver transplant.................... 100-300 ng/mL Lung;heart/lung transplant.......... 100-350 ng/mL Test performed by LC-MS/MS at the [facility]. This test was developed and its performance characteristics determined by [facility]. It has not been cleared or approved by the FDA. The laboratory is regulated under CLIA as qualified to perform high-complexity testing. This test is used for clinical purposes. Blood Venous blood specimen / Unknown 05/10/2022 10:37 AM EST 05/10/2022 3:14 PM EST us Karla Kate APRN LAB BLOOD ORDERABLES Final R esult 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 documented in this encounter Additional Health Concerns Assessment Noted Time A fall risk assessment has been complete d for the patient 12/09/2021 7:36 AM EDT A Body Mass Index follow-up plan has been documented for the patient 05/05/2022 10:19 AM EST documented as of this encounter Care Teams Operational Risk Analyst Relationship Specialty Start Date End Date Ced Al MD [address] [place] [address] PCP - General 08/20/20 11/18/23 Mendoza Johnson DO [address] [place], [place] [id number] PCP - General 11/19/23 Sylvia De La Torre RN [facility] [address] [place] [address] Surgical Navigator Transplant Surgery 01/11/21 [place] [address] Surgical Navigator Transplant Surgery 01/11/21 Wolf Dubose MD [address] [place] [address] Surgeon Transplant Surgery 01/11/21 Donovan Zaragoza APRN [address] [place] [address] Referring Physician Transplant Surgery 01/11/21 documented as of this encounter
--- OUTSIDE RECORDS SUMMARY | 2024-12-17 15:06 | XMS_ITS | Encounter Summary ---
Author Organization [facility] Address [address] [place] [address] Care Team Providers Care Banana Loader Name Role Phone Ced Al MD Primary Care Provider + [phone] Sylvia De La Torre RN Unavailable [phone] Nyasia Moses Unavailable [phone] Wolf Dubose MD Unavailable [phone] Donovan Zaragoza APRN Unavailable [phone] Mendoza Johnson DO Primary Care Provider [phone] Encounter Details Date Type Department Care Team (Late st Contact Info) Description 12/17/2020 Lab Requisition [facility] [address] [place] [address] Dot Mon[facility] Encounter for general adult medical [...] * (ABNORMAL) Cyclosporine (12/17/2020 5:27 AM EDT) [facility] Cyclosporine 88(L) 100 - 400 ng/mL 12/17/2020 1:43 PM EDT [facility] Comment: Cyclosporine therapeutic range: Kidney transplant................... 100-200 ng/mL Heart transplant.................... 100-300 ng/mL Liver transplant.................... 100-300 ng/mL Lung;heart/lung transplant.......... 100-350 ng/mL Test performed by LC-MS/MS at the [facility] Laboratory. This test was developed and its performance characteristics determined by [facility]. It has not been cleared or approved by the FDA. The laboratory is regulated under CLIA as qualified to perform high-complexity testing. This test is used for clinical purposes. Blood Venous blood specimen / Unknown 12/17/2020 5:27 AM EDT 12/17/2020 8:54 AM EDT us [facility] LAB BLOOD ORDERABLES Final Resul t [facility] [address] [place] [address] documented in this encounter Visit Diagnoses Diagnosis Encounter for general adult medical examination without abnormal findings documented in this encounter Additional Health Concerns Assessment Noted Time A fall risk assessment has been complete d for the patient 11/16/2020 8:39 AM EDT documented as of this encounter Care Teams Banana Loader Relationship Specialty Start Date End Date Ced Al MD [address] [place] [address] PCP - General 08/20/20 11/18/23 Mendoza Johnson DO [address] [place] [address] PCP - General 11/19/23 Sylvia De La Torre RN [facility] [address] [phone] Surgical Navigator Transplant Surgery 01/11/21 [place] [address] Surgical Navigator Transplant Surgery 01/11/21 Wolf Dubose MD [address] [place] [address] Surgeon Transplant Surgery 01/11/21 Donovan Zaragoza APRN [address] [place] [address] Referring Physician Transplant Surgery 01/11/21 documented as of this encounter
--- OUTSIDE RECORDS SUMMARY | 2024-12-17 15:06 | XMS_ITS | Encounter Summary ---
Author Organization [facility] Address [address] [place] [address] Care Team Providers Care Sign Language Translator Name Role Phone Ced Al MD Primary Care Provider + [phone] Sylvia De La Torre RN Unavailable [phone] Nyasia Moses Unavailable [phone] Wolf Dubose MD Unavailable [phone] Donovan Zaragoza APRN Unavailable [phone] Mendoza Johnson DO Primary Care Provider [phone] Encounter Details Date Type Department Care Team (Late st Contact Info) Description 12/06/2022 Orders Only External Location [address] [place] [address] Ced Al MD [address] [place] [address] Social History Tobacco Use Types [...] Author No 10/17/2020 3:33 PM EDT Carla Mandujaon RN * Are you blind or do [...] documented as of this encounter Care Teams Sign Language Translator Relationship Specialty Start Date End Date Ced Al MD [address] [place] [address] PCP - General 08/20/20 11/18/23 Mendoza Johnson DO [address] [place] [address] PCP - General 11/19/23 Sylvia De La Torre, FREDA [facility] [address] [place] [address] Surgical Navigator Transplant Surgery 01/11/21 [place] [address] Surgical Navigator Transplant Surgery 01/11/21 Wolf Dubose MD [address] [address] Surgeon Transplant Surgery 01/11/21 Donovan Zaragoza APRN [address] [place] [address] Referring Physician Transplant Surgery 01/11/21 documented as of this encounter
--- OUTSIDE RECORDS SUMMARY | 2024-12-17 15:06 | XMS_ITS | Encounter Summary ---
Author Organization [facility] Address [address] [place] [address] Care Team Providers Care Golf Course Patroller Name Role Phone Ced Al MD Primary Care Provider + [phone] Sylvia De La Torre RN Unavailable [phone] Nyasia Moses Unavailable [phone] Wolf Dubose MD Unavailable [phone] Donovan Zaragoza APRN Unavailable [phone] Mendoza Johnson DO Primary Care Provider [phone] Encounter Details Date Type Department Care Team (Late st Contact Info) Description 11/09/2021 Lab Requisition [facility] [address] [place] [address] Karla Kate, GARMENT PATTERNMAKER [address] [facility] [address] [place] [address] Liver transplant status (CMS/HCC) Social History Tobacco [...] 3:33 PM EDT Alexandra Mandujano RN * Do you have serious [...] - 400 ng/mL 11/10/2021 12:31 PM EDT [facility] Comment: Cyclosporine therapeutic range: Kidney transplant................... 100-200 ng/mL Heart transplant.................... 100-300 ng/mL Liver transplant.................... 100-300 ng/mL Lung;heart/lung transplant.......... 100-350 ng/mL Test performed by LC-MS/MS at the [facility]. This test was developed and its performance characteristics determined by [facility]. It has not been cleared or approved by the FDA. The laboratory is regulated under CLIA as qualified to perform high-complexity testing. This test is used for clinical purposes. Blood Venous blood specimen / Unknown 11/09/2021 9:20 AM EDT 11/09/2021 7:18 PM EDT us Karla Kate APRN LAB BLOOD ORDERABLES Final R esult [facility] [address] [place] [address] documented in this encounter Visit Diagnoses Diagnosis Liver transplant status (CMS/HCC) documented in this encounter Additional Health Concerns Assessment Noted Time A fall risk assessment has been complete d for the patient 06/08/2021 8:58 AM EST A Body Mass Index follow-up plan has been documented for the patient 05/05/2022 10:19 AM EST documented as of this encounter Care Teams Golf Course Patroller Relationship Specialty Start Date End Date Ced Al MD [address] [place] [address] PCP - General 08/20/20 11/18/23 Mendoza Johnson DO [address] [place] [address] PCP - General 11/19/23 Sylvia De La Torre RN [facility] [address] [place] [address] Surgical Navigator Transplant Surgery 01/11/21 [place] [address] Surgical Navigator Transplant Surgery 01/11/21 Wolf Dubose MD [address] [place] [address] Surgeon Transplant Surgery 01/11/21 Donovan Zaragoza APRN [address] [place] [address] Referring Physician Transplant Surgery 01/11/21 documented as of this encounter
--- OUTSIDE RECORDS SUMMARY | 2024-12-17 15:06 | XMS_ITS | Encounter Summary ---
Author Organization [facility] Address [address] [place] [address] Care Team Providers Care Studio Artist Name Role Phone Ced Al MD Primary Care Provider + [phone] Sylvia De La Torre RN Unavailable [phone] Nyasia Moses Unavailable [phone] Wolf Dubose MD Unavailable [phone] Donovan Zaragoza APRN Unavailable [phone] Mendoza Johnson DO Primary Care Provider [phone] Encounter Details Date Type Department Care Team (Late st Contact Info) Description 10/05/2021 Lab Requisition [facility] [address] [place] [address] Will Bermudez MD [address] [facility] [address] [place] [address] Encounter for general adult medical examination without [...] - 400 ng/mL 10/06/2021 1:55 PM EDT [facility] Comment: Cyclosporine therapeutic range: Kidney transplant................... 100-200 ng/mL Heart transplant.................... 100-300 ng/mL Liver transplant.................... 100-300 ng/mL Lung;heart/lung transplant.......... 100-350 ng/mL Test performed by LC-MS/MS at the [facility]. This test was developed and its performance characteristics determined by [facility]. It has not been cleared or approved by the FDA. The laboratory is regulated under CLIA as qualified to perform high-complexity testing. This test is used for clinical purposes. Blood Venous blood specimen / Unknown 10/05/2021 10:00 AM EDT 10/05/2021 1:31 PM EDT us Will Bermudez MD LAB BLOOD ORDERABLES Final Res ult [facility] [address] [place] [address] documented in this encounter Visit Diagnoses Diagnosis [...] documented as of this encounter Care Teams Studio Artist Relationship Specialty Start Date End Date Ced Al MD [address] [place] [address] PCP - General 08/20/20 11/18/23 Mendoza Johnson DO [address] [place] [address] PCP - General 11/19/23 White, [place]ox[place] E, RN [facility] [address] [place] [address] Surgical Navigator Transplant Surgery 01/11/21 [place] [address] Surgical Navigator Transplant Surgery 01/11/21 Wolf Dubose MD [address] [place] [address] Surgeon Transplant Surgery 01/11/21 Donovan Zaragoza APRN [address] [place] [address] Referring Physician Transplant Surgery 01/11/21 documented as of this encounter
--- OUTSIDE RECORDS SUMMARY | 2024-12-17 15:06 | XMS_ITS | Encounter Summary ---
Author Organization [facility] Address [address] [place] [address] Care Team Providers Care Academic Manager Name Role Phone Ced Al MD Primary Care Provider + [phone] Sylvia De La Torre RN Unavailable [phone] Nyasia Moses Unavailable [phone] Wolf Dubose MD Unavailable [phone] Donovan Zaragoza APRN Unavailable [phone] Mendoza Johnson DO Primary Care Provider [phone] Encounter Details Date Type Department Care Team (Late st Contact Info) Description 02/23/2022 Lab Requisition [facility] [address] [place] [address] Will Bermudez MD [address] [facility] [address] [place] [address] Liver transplant status (CMS/HCC); Other chainman (current) drug therapy Social History Tobacco Use [...] AM EST Liver transplant status (CMS/HCC) Other chainman (current) drug therapy documented in this encounter Results * (ABNORMAL) Cyclosporine (02/22/2022 10:20 AM EST) Cyclosporine 96(L) 100 - 400 ng/mL 02/24/2022 10:47 AM EST [facility] Comment: Cyclosporine therapeutic range: Kidney transplant................... 100-200 ng/mL Heart transplant.................... 100-300 ng/mL Liver transplant.................... 100-300 ng/mL Lung;heart/lung transplant.......... 100-350 ng/mL Test performed by LC-MS/MS at the [facility]. This test was developed and its performance characteristics determined by [facility]. It has not been cleared or approved by the FDA. The laboratory is regulated under CLIA as qualified to perform high-complexity testing. This test is used for clinical purposes. Blood Venous blood specimen / Unknown 02/22/2022 10:20 AM EST 02/23/2022 2:57 PM EST us Will Bermudez MD LAB BLOOD ORDERABLES Final Res ult [facility] [address] [place] [address] documented in this encounter Visit Diagnoses Diagnosis [...] documented as of this encounter Care Teams Academic Manager Relationship Specialty Start Date End Date Ced Al MD [address] [place] [address] PCP - General 08/20/20 11/18/23 Mendoza Johnson DO [address] [place] [address] PCP - General 11/19/23 Sylvia De La Torre RN [facility] [address] [place] [address] Surgical Navigator Transplant Surgery 01/11/21 [place] [address] Surgical Navigator Transplant Surgery 01/11/21 Wolf Dubose MD [address] [place] [address] Surgeon Transplant Surgery 01/11/21 Donovan Zaragoza APRN [address] [place] [address] Referring Physician Transplant Surgery 01/11/21 documented as of this encounter
--- OUTSIDE RECORDS SUMMARY | 2024-12-17 15:06 | XMS_ITS | Encounter Summary ---
Author Organization [facility] Address [address] [place] [address] Care Team Providers Care Phone Specialist Name Role Phone Ced Al MD Primary Care Provider + [phone] Sylvia De La Torre RN Unavailable [phone] Nyasia Moses Unavailable [phone] Wolf Dubose MD Unavailable [phone] Donovan Zaragoza APRN Unavailable [phone] Mendoza Johnson DO Primary Care Provider [phone] Encounter Details Date Type Department Care Team (Late st Contact Info) Description 08/11/2022 Orders Only External Location [address] [place] [address] Provider, External Social History Tobacco Use Types [...] Date Author No 10/17/2020 3:33 PM EDT Calra Mandujano RN documented in this encounter Plan [...] documented as of this encounter Care Teams Phone Specialist Relationship Specialty Start Date End Date Ced Al MD [address] [place] [address] PCP - General 08/20/20 11/18/23 Mendoza Johnson DO [address] [place] [address] PCP - General 11/19/23 Sylvia De La Torre, RN [facility] [address] [place] [address] Surgical Navigator Transplant Surgery 01/11/21 [place] [address] Surgical Navigator Transplant Surgery 01/11/21 Wolf Dubose MD [address] [address] Surgeon Transplant Surgery 01/11/21 Donovan Zaragoza APRN [address] [facility] [place] [address] Referring Physician Transplant Surgery 01/11/21 documented as of this encounter
--- OUTSIDE RECORDS SUMMARY | 2024-12-17 15:06 | XMS_ITS | Encounter Summary ---
Author Organization [facility] Address [address] [place] [address] Care Team Providers Care Chief School Finance Officer Name Role Phone Ced Al MD Primary Care Provider + [phone] Sylvia De La Torre RN Unavailable [phone] Nyasia Moses Unavailable [phone] Wolf Dubose MD Unavailable [phone] Donovan Zaragoza APRN Unavailable [phone] Mendoza Johnson DO Primary Care Provider [phone] Encounter Details Date Type Department Care Team (Late st Contact Info) Description 08/11/2022 Orders Only External Location [address] [place] [address] Ced Al MD [address] [place] [address] Social History Tobacco Use Types [...] documented as of this encounter Care Teams Chief School Finance Officer Relationship Specialty Start Date End Date Ced Al MD [address] [place] [address] PCP - General 08/20/20 11/18/23 Mendoza Johnson DO [address] [place], [place] [address] PCP - General 11/19/23 Sylvia De La Torre, RN [facility] [address] [place] [address] Surgical Navigator Transplant Surgery 01/11/21 [place] [address] Surgical Navigator Transplant Surgery 01/11/21 Wolf Dubose MD [address] [place] [address] Surgeon Transplant Surgery 01/11/21 Donovan Zaragoza APRN [address] [place] [address] Referring Physician Transplant Surgery 01/11/21 documented as of this encounter
--- OUTSIDE RECORDS SUMMARY | 2024-12-17 15:06 | XMS_ITS | Encounter Summary ---
Author Organization [facility] Address [address] [place] [address] Care Team Providers Care Dehydrator Name Role Phone Ced Al MD Primary Care Provider + [phone] Sylvia De La Torre RN Unavailable [phone] Nyasia Moses Unavailable [phone] Wolf Dubose MD Unavailable [phone] Donovan Zaragoza APRN Unavailable [phone] Mendoza Johnson DO Primary Care Provider [phone] Encounter Details Date Type Department Care Team (Late st Contact Info) Description 2020 Lab Requisition [facility] [address] [place] [address] Dot Monge Encounter for general adult medical [...] - 400 ng/mL 2020 4:46 PM EDT [facility] Comment: Cyclosporine therapeutic range: Kidney transplant................... 100-200 ng/mL Heart transplant.................... 100-300 ng/mL Liver transplant.................... 100-300 ng/mL Lung;heart/lung transplant.......... 100-350 ng/mL Test performed by LC-MS/MS at the [facility] Laboratory. This test was developed and its performance characteristics determined by [facility]. It has not been cleared or approved by the FDA. The laboratory is regulated under CLIA as qualified to perform high-complexity testing. This test is used for clinical purposes. Blood Venous blood specimen / Unknown 2020 5:20 AM EDT 2020 10:06 AM EDT us [facility] Mon[facility] LAB BLOOD ORDERABLES Final Resul t [facility] [address] [place] [address] documented in this encounter Visit Diagnoses Diagnosis Encounter for general adult medical examination without abnormal findings documented in this encounter Additional Health Concerns Assessment Noted Time A fall risk assessment has been complete d for the patient 11/16/2020 8:39 AM EDT documented as of this encounter Care Teams Dehydrator Relationship Specialty Start Date End Date Ced Al MD [address] [place] [address] PCP - General 08/20/20 11/18/23 Mendoza Johnson DO [address] [place] [address] PCP - General 11/19/23 Sylvia De La Torre RN [facility]ISTR[facility] [address] [place] [address] Surgical Navigator Transplant Surgery 01/11/21 [place] [address] Surgical Navigator Transplant Surgery 01/11/21 Wolf Dubose MD [address] [id number] Surgeon Transplant Surgery 01/11/21 Donovan Zaragoza APRN [address] [place] [address] Referring Physician Transplant Surgery 01/11/21 documented as of this encounter
--- OUTSIDE RECORDS SUMMARY | 2024-12-17 15:06 | XMS_ITS | Encounter Summary ---
Author Organization [facility] Address [address] [place] [address] Care Team Providers Care Assistant Activities Director Name Role Phone Ced Al MD Primary Care Provider + [phone] Sylvia De La Torre RN Unavailable [phone] Nyasia Moses Unavailable [phone] Wolf Dubose MD Unavailable [phone] Donovan Zaragoza APRN Unavailable [phone] Mendoza Johnson DO Primary Care Provider [phone] Encounter Details Date Type Department Care Team (Late st Contact Info) Description 11/02/2021 Lab Requisition [facility] [address] [place] [address] Will Bermudez MD [address] [facility] [address] [place] [address] Liver transplant status (CMS/HCC) Social History Tobacco [...] - 400 ng/mL 11/03/2021 2:30 PM EDT [facility] Comment: Cyclosporine therapeutic range: Kidney transplant................... 100-200 ng/mL Heart transplant.................... 100-300 ng/mL Liver transplant.................... 100-300 ng/mL Lung;heart/lung transplant.......... 100-350 ng/mL Test performed by LC-MS/MS at the [facility] Chemistry Laboratory. This test was developed and its performance characteristics determined by [facility]. It has not been cleared or approved by the FDA. The laboratory is regulated under CLIA as qualified to perform high-complexity testing. This test is used for clinical purposes. Blood Venous blood specimen / Unknown 11/02/2021 9:40 AM EDT 11/02/2021 2:44 PM EDT us Will Bermudez MD LAB BLOOD ORDERABLES Final Res ult Performing Organization Address City/State/[facility] Co de Phone Number [facility] [address] [place] [address] documented in this encounter Visit Diagnoses Diagnosis Liver transplant status (CMS/HCC) documented in this encounter Additional Health Concerns Assessment Noted Time A fall risk assessment has been complete d for the patient 06/08/2021 8:58 AM EST A Body Mass Index follow-up plan has been documented for the patient 05/05/2022 10:19 AM EST documented as of this encounter Care Teams Assistant Activities Director Relationship Specialty Start Date End Date Ced Al MD [address] [place] [address] PCP - General 08/20/20 11/18/23 Mendoza Johnson DO [address] [place] [address] PCP - General 11/19/23 Sylvia De La Torre RN [facility] [address] [place] [address] Surgical Navigator Transplant Surgery 01/11/21 [place] [address] Surgical Navigator Transplant Surgery 01/11/21 Wolf Dubose MD [address] [place] [address] Surgeon Transplant Surgery 01/11/21 Donovan Zaragoza APRN [address] [place] [address] Referring Physician Transplant Surgery 01/11/21 documented as of this encounter
--- OUTSIDE RECORDS SUMMARY | 2024-12-17 15:06 | XMS_ITS | Encounter Summary ---
Author Organization [facility] Address [address] [place] [address] Care Team Providers Care Clammer Name Role Phone Ced Al MD Primary Care Provider + [phone] Sylvia De La Torre RN Unavailable [phone] Nyasia Moses Unavailable [phone] Wolf Dubose MD Unavailable [phone] Donovan Zaragoza APRN Unavailable [phone] Mendoza Johnson DO Primary Care Provider [phone] Encounter Details Date Type Department Care Team (Late st Contact Info) Description 10/26/2021 Lab Requisition [facility] [address] [place] [address] Will Bermudez MD [address] [facility] [address] [place] [address] Encounter for general adult medical examination without [...] - 400 ng/mL 10/27/2021 1:37 PM EDT [facility] Comment: Cyclosporine therapeutic range: Kidney transplant................... 100-200 ng/mL Heart transplant.................... 100-300 ng/mL Liver transplant.................... 100-300 ng/mL Lung;heart/lung transplant.......... 100-350 ng/mL Test performed by LC-MS/MS at the [facility] Laboratory. This test was developed and its performance characteristics determined by [facility]. It has not been cleared or approved by the FDA. The laboratory is regulated under CLIA as qualified to perform high-complexity testing. This test is used for clinical purposes. Blood Venous blood specimen / Unknown 10/26/2021 10:00 AM EDT 10/26/2021 3:13 PM EDT us Will Berumdez MD LAB BLOOD ORDERABLES Final Res ult [facility] [address] [place] [address] documented in this encounter Visit Diagnoses Diagnosis [...] documented as of this encounter Care Teams Clammer Relationship Specialty Start Date End Date Ced Al MD [address] [place] [address] PCP - General 08/20/20 11/18/23 Mendoza Johnson DO [address] [place] [address] PCP - General 11/19/23 Sylvia De La Torre RN [facility] [address] [place] [address] Surgical Navigator Transplant Surgery 01/11/21 [place] [address] Surgical Navigator Transplant Surgery 01/11/21 Wolf Dubose MD [address] [place] [address] Surgeon Transplant Surgery 01/11/21 Donovan Zaragoza APRN [address] [place] [address] Referring Physician Transplant Surgery 01/11/21 documented as of this encounter
--- OUTSIDE RECORDS SUMMARY | 2024-12-17 15:06 | XMS_ITS | Encounter Summary ---
Author Organization [facility] Address [address] [place] [address] Care Team Providers Care Improvement Specialist Name Role Phone Ced Al MD Primary Care Provider + [phone] Sylvia De La Torre RN Unavailable [phone] Nyasia Moses Unavailable [phone] Wolf Dubose MD Unavailable [phone] Donovan Zaragoza APRN Unavailable Mendoza Johnson DO Primary Care Provider [phone] Encounter Details Date Type Department Care Team (Late st Contact Info) Description 10/07/2021 Lab Requisition [facility] [address] [place] [address] Will Bermudez MD [address] [facility] [address] [place] [address] Liver transplant status (CMS/HCC) Social History Tobacco [...] - 400 ng/mL 10/07/2021 2:05 PM EDT [facility] Blood Venous blood specimen / Unknown 10/07/2021 8:35 AM EDT 10/07/2021 11:11 AM EDT us Will Bermudez MD LAB BLOOD ORDERABLES Final Res ult [facility] [address] [place] [address] documented in this encounter Visit Diagnoses Diagnosis Liver transplant status (CMS/HCC) documented in this encounter Additional Health Concerns Assessment Noted Time A fall risk assessment has been complete d for the patient 06/08/2021 8:58 AM EST A Body Mass Index follow-up plan has been documented for the patient 05/05/2022 10:19 AM EST documented as of this encounter Care Teams Improvement Specialist Relationship Specialty Start Date End Date Ced Al MD [address] [place] [address] PCP - General 08/20/20 11/18/23 Mendoza Johnson DO [address] [place] [address] PCP - General 11/19/23 Sylvia De La Torre RN [facility] [address] [place], [place] [address] Surgical Navigator Transplant Surgery 01/11/21 [place] [address] Surgical Navigator Transplant Surgery 01/11/21 Wolf Dubose MD [address] [address] Surgeon Transplant Surgery 01/11/21 Donovan Zaragoza APRN [address] [place] [address] Referring Physician Transplant Surgery 01/11/21 documented as of this encounter
--- OUTSIDE RECORDS SUMMARY | 2024-12-17 15:06 | XMS_ITS | Encounter Summary ---
Author Organization [facility] Address [address] [place] [address] Care Team Providers Care Clin Application Specialist Name Role Phone Ced Al MD Primary Care Provider + [phone] Sylvia De La Torre RN Unavailable [phone] Nyasia Moses Unavailable [phone] Wolf Dubose MD Unavailable [phone] Donovan Zaragoza APRN Unavailable [phone] Mendoza Johnson DO Primary Care Provider [phone] Encounter Details Date Type Department Care Team (Late st Contact Info) Description 03/08/2022 Lab Requisition [facility] [address] [place] [address] Will Bermudez MD [address] [facility] [address] [place] [address] Liver transplant status (CMS/HCC) Social History Tobacco [...] - 400 ng/mL 03/09/2022 3:52 PM EST [facility] Comment: Cyclosporine therapeutic range: Kidney transplant................... 100-200 ng/mL Heart transplant.................... 100-300 ng/mL Liver transplant.................... 100-300 ng/mL Lung;heart/lung transplant.......... 100-350 ng/mL Test performed by LC-MS/MS at the [facility] Laboratory. This test was developed and its performance characteristics determined by [facility]. It has not been cleared or approved by the FDA. The laboratory is regulated under CLIA as qualified to perform high-complexity testing. This test is used for clinical purposes. Blood Venous blood specimen / Unknown 03/08/2022 10:00 AM EST 03/08/2022 12:55 PM EST us Will Bermudez MD LAB BLOOD ORDERABLES Final Res ult [facility] [address] [place] [address] documented in this encounter Visit Diagnoses Diagnosis Liver transplant status (CMS/HCC) documented in this encounter Additional Health Concerns Assessment Noted Time A fall risk assessment has been complete d for the patient 12/09/2021 7:36 AM EDT A Body Mass Index follow-up plan has been documented for the patient 05/05/2022 10:19 AM EST documented as of this encounter Care Teams Clin Application Specialist Relationship Specialty Start Date End Date Ced Al MD [address] [place] [address] PCP - General 08/20/20 11/18/23 Mendoza Johnson DO [address] [place] [address] PCP - General 11/19/23 Sylvia De La Torre, FREDA [facility]TRANSPLANT ADMINISTRATION [address] [place] [address] Surgical Navigator Transplant Surgery 01/11/21 [place] [address] Surgical Navigator Transplant Surgery 01/11/21 Wolf Dubose MD [address] [address] Surgeon Transplant Surgery 01/11/21 Donovan Zaragoza APRN [address] [place] [address] Referring Physician Transplant Surgery 01/11/21 documented as of this encounter
--- OUTSIDE RECORDS SUMMARY | 2024-12-17 15:06 | XMS_ITS | Encounter Summary ---
Author Organization [facility] Address [address] [place] [address] Care Team Providers Care Belt Changer Name Role Phone Ced Al MD Primary Care Provider + [phone] Sylvia De La Torre RN Unavailable [phone] Nyasia Moses Unavailable [phone] Wolf Dubose MD Unavailable [phone] Donovan Zaragoza APRN Unavailable [phone] Mendoza Johnson DO Primary Care Provider [phone] Encounter Details Date Type Department Care Team (Late st Contact Info) Description 11/30/2021 Lab Requisition [facility] [address] [place] [address] Will Bermudez MD [address] [facility] [address] [place] [address] Liver transplant status (CMS/HCC); 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 100-200 ng/mL Heart transplant.................... 100-300 ng/mL Liver transplant.................... 100-300 ng/mL Lung;heart/lung transplant.......... 100-350 ng/mL Test performed by LC-MS/MS at the [facility] Laboratory. This test was developed and its performance characteristics determined by [facility]. It has not been cleared or approved by the FDA. The laboratory is regulated under CLIA as qualified to perform high-complexity testing. This test is used for clinical purposes. Blood Venous blood specimen / Unknown 11/30/2021 9:52 AM EDT 11/30/2021 1:28 PM EDT us Will Bermudez MD LAB BLOOD ORDERABLES Final Res ult [facility] [address] [place] [address] documented in this encounter Visit Diagnoses Diagnosis Liver transplant status (CMS/HCC) Other roasterman (current) drug therapy documented in this encounter Additional Health Concerns Assessment Noted Time A fall risk assessment has been complete d for the patient 06/08/2021 8:58 AM EST A Body Mass Index follow-up plan has been documented for the patient 05/05/2022 10:19 AM EST documented as of this encounter Care Teams Belt Changer Relationship Specialty Start Date End Date Ced Al MD [address] [place] [address] PCP - General 08/20/20 11/18/23 Mendoza Johnson DO [address] [place], [place] [address] PCP - General 11/19/23 Sylvia De La Torre RN [facility]MINISTRATION [address] [place] [address] Surgical Navigator Transplant Surgery 01/11/21 Nyasia [place] [address] Surgical Navigator Transplant Surgery 01/11/21 Wolf Dubose MD [address] [place] [address] Surgeon Transplant Surgery 01/11/21 Donovan Zaragoza APRN [address] [place] [address] Referring Physician Transplant Surgery 01/11/21 documented as of this encounter
--- OUTSIDE RECORDS SUMMARY | 2024-12-17 15:06 | XMS_ITS | Encounter Summary ---
Author Organization [facility] Address [address] [place] [address] Care Team Providers Care Student Development Coordinator Name Role Phone Ced Al MD Primary Care Provider + [phone] Sylvia De La Torre RN Unavailable [phone] Nyasia Moses Unavailable [phone] Wolf Dubose MD Unavailable [phone] Donovan Zaragoza APRN Unavailable [phone] Mendoza Johnson DO Primary Care Provider [phone] Encounter Details Date Type Department Care Team (Late st Contact Info) Description 04/22/2022 Orders Only External Location [address] [place] [address] Simeon Saldivar MD [address] [place] [address] [...] 04/22/2022 2:12 PM EST Simeon Saldivar MD [facility] PROCEDURES Final Result documented in this encounter Visit Diagnoses Not on filedocumented in this encounter Additional Health Concerns Assessment Noted Time A fall risk assessment has been complete d for the patient 12/09/2021 7:36 AM EDT A Body Mass Index follow-up plan has been documented for the patient 05/05/2022 10:19 AM EST documented as of this encounter Care Teams Student Development Coordinator Relationship Specialty Start Date End Date Ced Al MD [address] [place] [address] PCP - General 08/20/20 11/18/23 Mendoza Johnson DO [address] [place], [place] [address] PCP - General 11/19/23 Sylvia De La Torre, RN [facility]PL[facility] ADMINISTRATION [address] [place] [address] Surgical Navigator Transplant Surgery 01/11/21 [place] [address] Surgical Navigator Transplant Surgery 01/11/21 Wolf Dubose MD [address] [place] [address] Surgeon Transplant Surgery 01/11/21 Donovan Zaragoza APRN [address] [place] [address] Referring Physician Transplant Surgery 01/11/21 documented as of this encounter
--- OUTSIDE RECORDS SUMMARY | 2024-12-17 15:06 | XMS_ITS | Encounter Summary ---
Author Organization [facility] Address [address] [place] [address] Care Team Providers Care Quality Engineer Medical Device Name Role Phone Ced Al MD Primary Care Provider + [phone] Sylvia De La Torre RN Unavailable [phone] Nyasia Msoes Unavailable [phone] Wolf Dubose MD Unavailable [phone] Donovan Zaragoza APRN Unavailable Mendoza Johnson DO Primary Care Provider [phone] Encounter Details Date Type Department Care Team (Late st Contact Info) Description 12/27/2020 Lab Requisition [facility] [address] [place] [address] Dot Monge Encounter for general adult medical [...] - 400 ng/mL 12/28/2020 8:10 AM EDT [facility] Comment: Cyclosporine therapeutic range: Kidney transplant................... 100-200 ng/mL Heart transplant.................... 100-300 ng/mL Liver transplant.................... 100-300 ng/mL Lung;heart/lung transplant.......... 100-350 ng/mL Test performed by LC-MS/MS at the [facility] Laboratory. This test was developed and its performance characteristics determined by [facility]. It has not been cleared or approved by the FDA. The laboratory is regulated under CLIA as qualified to perform high-complexity testing. This test is used for clinical purposes. Blood Venous blood specimen / Unknown 12/27/2020 4:46 AM EDT 12/27/2020 11:00 AM EDT us [facility] LAB BLOOD ORDERABLES Final Resul t [facility] [address] [place] [address] documented in this encounter Visit Diagnoses Diagnosis Encounter for general adult medical examination without abnormal findings documented in this encounter Additional Health Concerns Assessment Noted Time A fall risk assessment has been complete d for the patient 11/16/2020 8:39 AM EDT documented as of this encounter Care Teams Quality Engineer Medical Device Relationship Specialty Start Date End Date Ced Al MD [address] [place] [address] PCP - General 08/20/20 11/18/23 Mendoza Johnson DO [address] [place] [address] PCP - General 11/19/23 Sylvia De La Torre RN [facility]MINISTRATION [address] [place] [address] Surgical Navigator Transplant Surgery 01/11/21 Nyasia Moses [place] [id number] Surgical Navigator Transplant Surgery 01/11/21 Wolf Dubose MD [address] [address] Surgeon Transplant Surgery 01/11/21 Donovan Zaragoza APRN [address] [place] [address] Referring Physician Transplant Surgery 01/11/21 documented as of this encounter
--- OUTSIDE RECORDS SUMMARY | 2024-12-17 15:06 | XMS_ITS | Encounter Summary ---
Author Organization [facility] Address [address] [place] [address] Care Team Providers Care Dairy Technician Name Role Phone Ced Al MD Primary Care Provider + [phone] Sylvia De La Torre RN Unavailable [phone] Nyasia Moses Unavailable [phone] Wolf Dubose MD Unavailable [phone] Donovan Zaragoza APRN Unavailable [phone] Mendoza Johnson DO Primary Care Provider [phone] Encounter Details Date Type Department Care Team (Late st Contact Info) Description 04/19/2022 Lab Requisition [facility] [address] [place] [address] Karla Kate, HUMAN RESOURCE ADVISOR [address] [facility] [address] [place] [address] Liver transplant status (CMS/HCC); 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 100-200 ng/mL Heart transplant.................... 100-300 ng/mL Liver transplant.................... 100-300 ng/mL Lung;heart/lung transplant.......... 100-350 ng/mL Test performed by LC-MS/MS at the [facility] Laboratory. This test was developed and its performance characteristics determined by [facility]. It has not been cleared or approved by the FDA. The laboratory is regulated under CLIA as qualified to perform high-complexity testing. This test is used for clinical purposes. 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 documented in this encounter Additional Health Concerns Assessment Noted Time A fall risk assessment has been complete d for the patient 12/09/2021 7:36 AM EDT A Body Mass Index follow-up plan has been documented for the patient 05/05/2022 10:19 AM EST documented as of this encounter Care Teams Dairy Technician Relationship Specialty Start Date End Date Ced Al MD [address] [place] [address] PCP - General 08/20/20 11/18/23 Mendoza Johnson DO [address] [place], [place] [address] PCP - General 11/19/23 Sylvia De La Torre RN [facility]MINISTRATION [address] [place] [address] Surgical Navigator Transplant Surgery 01/11/21 [place] [address] Surgical Navigator Transplant Surgery 01/11/21 Wolf Dubose MD [address] [place] [address] Surgeon Transplant Surgery 01/11/21 Donovan Zaragoza APRN [address] [place] [address] Referring Physician Transplant Surgery 01/11/21 documented as of this encounter
--- OUTSIDE RECORDS SUMMARY | 2024-12-17 15:06 | XMS_ITS | Encounter Summary ---
Author Organization [facility] Address [address] [place] [address] Care Team Providers Care Underwriting Technician Name Role Phone Ced Al MD Primary Care Provider + [phone] Sylvia De La Torre RN Unavailable +[phone] Nyasia Moses Unavailable [phone] Wolf Dubose MD Unavailable [phone] Donovan Zaragoza APRN Unavailable [phone] Mendoza Johnson DO Primary Care Provider [phone] Encounter Details Date Type Department Care Team (Late st Contact Info) Description 12/16/2020 Lab Requisition [facility] [address] [place] [address] Dot Monge Encounter for general adult medical [...] Assessment Author No 10/17/2020 3:33 PM EDT Calra Mandujano RN * Do you have serious [...] - 400 ng/mL 12/16/2020 1:40 PM EDT [facility] Comment: Cyclosporine therapeutic range: Kidney transplant................... 100-200 ng/mL Heart transplant.................... 100-300 ng/mL Liver transplant.................... 100-300 ng/mL Lung;heart/lung transplant.......... 100-350 ng/mL Test performed by LC-MS/MS at the [facility]. This test was developed and its performance characteristics determined by [facility]. It has not been cleared or approved by the FDA. The laboratory is regulated under CLIA as qualified to perform high-complexity testing. This test is used for clinical purposes. Blood Venous blood specimen / Unknown 12/16/2020 7:16 AM EDT 12/16/2020 10:18 AM EDT us [facility] BLOOD ORDERABLES Final Resul t [facility] [address] [place] [address] documented in this encounter Visit Diagnoses Diagnosis Encounter for general adult medical examination without abnormal findings documented in this encounter Additional Health Concerns Assessment Noted Time A fall risk assessment has been complete d for the patient 11/16/2020 8:39 AM EDT documented as of this encounter Care Teams Underwriting Technician Relationship Specialty Start Date End Date Ced Al MD [address] [place] [address] PCP - General 08/20/20 11/18/23 Mendoza Johnson DO [address] [place] [address] PCP - General 11/19/23 Sylvia De La Torre RN [facility] [address] [place] [address] Surgical Navigator Transplant Surgery 01/11/21 [place] [address] Surgical Navigator Transplant Surgery 01/11/21 Wolf Dubose MD [address] [place] [address] Surgeon Transplant Surgery 01/11/21 Donovan Zaragoza APRN [address] [place] [address] Referring Physician Transplant Surgery 01/11/21 documented as of this encounter
--- OUTSIDE RECORDS SUMMARY | 2024-12-17 15:06 | XMS_ITS | Encounter Summary ---
Author Organization [facility] Address [address] [facility] [place] [address] Care Team Providers Care Supervisor Prep Name Role Phone Ced Al MD Primary Care Provider + [phone] Sylvia De La Torre RN Unavailable [phone] Nyasia Moses Unavailable [phone] Wolf Dubose MD Unavailable [phone] Donovan Zaragoza APRN Unavailable [phone] Mendoza Johnson DO Primary Care Provider [phone] Encounter Details Date Type Department Care Team (Late st Contact Info) Description 01/04/2022 Lab Requisition [facility] [address] [place] [address] Will Bermudez MD [address] [facility] [address] [place] [address] Liver transplant status (CMS/HCC); 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 100-200 ng/mL Heart transplant.................... 100-300 ng/mL Liver transplant.................... 100-300 ng/mL Lung;heart/lung transplant.......... 100-350 ng/mL Test performed by LC-MS/MS at the [facility]. This test was developed and its performance characteristics determined by [facility]. It has not been cleared or approved by the FDA. The laboratory is regulated under CLIA as qualified to perform high-complexity testing. This test is used for clinical purposes. Blood Venous blood specimen / Unknown 01/04/2022 10:04 AM EDT 01/04/2022 5:11 PM EDT us Will Bermudez MD LAB BLOOD ORDERABLES Final Res ult [facility] [address] [place] [address] documented in this encounter Visit Diagnoses Diagnosis [...] as of this encounter Care Teams Supervisor Prep Relationship Specialty Start Date End Date Ced Al MD [address] [place] [address] PCP - General 08/20/20 11/18/23 Mendoza Johnson DO [address] [place] [address] PCP - General 11/19/23 Sylvia De La Torre RN [facility] [address] [place] [address] Surgical Navigator Transplant Surgery 01/11/21 [place] [address] Surgical Navigator Transplant Surgery 01/11/21 Wolf Dubose MD [address] [place] [address] Surgeon Transplant Surgery 01/11/21 Donovan Zaragoza APRN [address] [place] [address] Referring Physician Transplant Surgery 01/11/21 documented as of this encounter
--- OUTSIDE RECORDS SUMMARY | 2024-12-17 15:06 | XMS_ITS | Encounter Summary ---
Author Organization [facility] Address [address] [facility] [place] [address] Care Team Providers Care Nurse Wound Care Name Role Phone Ced Al MD Primary Care Provider + [phone] Sylvia De La Torre RN Unavailable [phone] Nyasia Moses Unavailable [phone] Wolf Dubose MD Unavailable [phone] Donovan Zaragoza APRN Unavailable [phone] Mendoza Johnson DO Primary Care Provider [phone] Encounter Details Date Type Department Care Team (Late st Contact Info) Description 10/19/2021 Lab Requisition [facility] [address] [place] [address] Will Bermudez MD [address] [facility] [address] [place] [address] Liver transplant status (CMS/HCC); 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 100-200 ng/mL Heart transplant.................... 100-300 ng/mL Liver transplant.................... 100-300 ng/mL Lung;heart/lung transplant.......... 100-350 ng/mL Test performed by LC-MS/MS at the [facility]. This test was developed and its performance characteristics determined by [facility]. It has not been cleared or approved by the FDA. The laboratory is regulated under CLIA as qualified to perform high-complexity testing. This test is used for clinical purposes. Blood Venous blood specimen / Unknown 10/18/2021 9:30 AM EDT 10/19/2021 12:17 PM EDT us Will Bermudez MD LAB BLOOD ORDERABLES Final Res ult [facility] [address] [place] [address] documented in this encounter Visit Diagnoses Diagnosis Liver transplant status (CMS/HCC) Other fpc (current) drug therapy documented in this encounter Additional Health Concerns Assessment Noted Time A fall risk assessment has been complete d for the patient 06/08/2021 8:58 AM EST A Body Mass Index follow-up plan has been documented for the patient 05/05/2022 10:19 AM EST documented as of this encounter Care Teams Nurse Wound Care Relationship Specialty Start Date End Date Ced Al MD [address] [place] [address] PCP - General 08/20/20 11/18/23 Mendoza Johnson DO [address] [place] [address] PCP - General 11/19/23 Sylvia De La Torre RN [facility] [address] [place] [address] Surgical Navigator Transplant Surgery 01/11/21 [place] [address] Surgical Navigator Transplant Surgery 01/11/21 Wolf Dubose MD [address] [place] [address] Surgeon Transplant Surgery 01/11/21 Donovan Zaragoza APRN [address] [place] [address] Referring Physician Transplant Surgery 01/11/21 documented as of this encounter
--- OUTSIDE RECORDS SUMMARY | 2024-12-17 15:06 | XMS_ITS | Encounter Summary ---
Author Organization [facility] Address [address] [place] [address] Care Team Providers Care Hair Assistant Name Role Phone Ced Al MD Primary Care Provider + [phone] Sylvia De La Torre RN Unavailable [phone] Naysia Moses Unavailable [phone] Wolf Dubose MD Unavailable [phone] Donovan Zaragoza APRN Unavailable [phone] Mendoza Johnson DO Primary Care Provider [phone] Encounter Details Date Type Department Care Team (Late st Contact Info) Description 02/08/2022 Lab Requisition [facility] [address] [place] [address] Will Bermudez MD [address] [facility] [address] [place] [address] Liver transplant status (CMS/HCC) Social History Tobacco [...] - 400 ng/mL 02/09/2022 2:08 PM EDT [facility] Comment: Cyclosporine therapeutic range: Kidney transplant................... 100-200 ng/mL Heart transplant.................... 100-300 ng/mL Liver transplant.................... 100-300 ng/mL Lung;heart/lung transplant.......... 100-350 ng/mL Test performed by LC-MS/MS at the [facility]. This test was developed and its performance characteristics determined by [facility]. It has not been cleared or approved by the FDA. The laboratory is regulated under CLIA as qualified to perform high-complexity testing. This test is used for clinical purposes. Blood Venous blood specimen / Unknown 02/08/2022 10:00 AM EDT 02/08/2022 2:27 PM EDT us Will Bermudez MD LAB BLOOD ORDERABLES Final Res ult [facility] [address] [place], [place] [address] documented in this encounter Visit Diagnoses Diagnosis Liver transplant status (CMS/HCC) documented in this encounter Additional Health Concerns Assessment Noted Time A fall risk assessment has been complete d for the patient 12/09/2021 7:36 AM EDT A Body Mass Index follow-up plan has been documented for the patient 05/05/2022 10:19 AM EST documented as of this encounter Care Teams Hair Assistant Relationship Specialty Start Date End Date Ced Al MD [address] [place] [address] PCP - General 08/20/20 11/18/23 Mendoza Johnson DO [address] [place] [address] PCP - General 11/19/23 Sylvia De La Torre RN [facility] [address] [place] [address] Surgical Navigator Transplant Surgery 01/11/21 [place] [address] Surgical Navigator Transplant Surgery 01/11/21 Wolf Dubose MD [address] [place] [address] [place] [address] Surgeon Transplant Surgery 01/11/21 Donovan Zaragoza APRN [address] [place] [address] Referring Physician Transplant Surgery 01/11/21 documented as of this encounter
--- OUTSIDE RECORDS SUMMARY | 2024-12-17 15:06 | XMS_ITS | Encounter Summary ---
Author Organization [facility] Address [address] [place] [address] Care Team Providers Care Automotive Service Writer Name Role Phone Ced Al MD Primary Care Provider + [phone] Sylvia De La Torre RN Unavailable [phone] Nyasia Moses Unavailable [phone] Wolf Dubose MD Unavailable [phone] Donovan Zaragoza APRN Unavailable [phone] Mendoza Johnson DO Primary Care Provider [phone] Encounter Details Date Type Department Care Team (Late st Contact Info) Description 12/21/2021 Lab Requisition [facility] [address] [place] [address] Will Bermudez MD [address] [facility] [address] [place] [address] Encounter for general adult medical examination without [...] Assessment Author No 10/17/2020 3:33 PM EDT a[facility]la Mandujano RN * Do you have serious [...] - 400 ng/mL 12/22/2021 10:25 AM EDT [facility] Comment: Cyclosporine therapeutic range: Kidney transplant................... 100-200 ng/mL Heart transplant.................... 100-300 ng/mL Liver transplant.................... 100-300 ng/mL Lung;heart/lung transplant.......... 100-350 ng/mL Test performed by LC-MS/MS at the [facility]. This test was developed and its performance characteristics determined by [facility]. It has not been cleared or approved by the FDA. The laboratory is regulated under CLIA as qualified to perform high-complexity testing. This test is used for clinical purposes. Blood Venous blood specimen / Unknown 12/21/2021 9:55 AM EDT 12/21/2021 12:43 PM EDT us Will Bermudez MD LAB BLOOD ORDERABLES Final Res ult [facility] [address] [place] [address] documented in this encounter Visit Diagnoses Diagnosis [...] documented as of this encounter Care Teams Automotive Service Writer Relationship Specialty Start Date End Date Ced lA MD [address] [place] [address] PCP - General 08/20/20 11/18/23 Mendoza Johnson DO [address] [place] [address] PCP - General 11/19/23 Sylvia De La Torre RN [facility] [address] [place], [place] [address] Surgical Navigator Transplant Surgery 01/11/21 [place] [address] Surgical Navigator Transplant Surgery 01/11/21 Wolf Dubose MD [address] [place] [address] Surgeon Transplant Surgery 01/11/21 Donovan Zaragoza APRN [address] [facility] [address] [place] [address] Referring Physician Transplant Surgery 01/11/21 documented as of this encounter
--- OUTSIDE RECORDS SUMMARY | 2024-12-17 15:06 | XMS_ITS | Encounter Summary ---
Author Organization [facility] Address [address] [place] [address] Care Team Providers Care Automotive Technician Instructor Name Role Phone Ced Al MD Primary Care Provider + [phone] Sylvia De La Torre RN Unavailable [phone] Nyasia Moses Unavailable [phone] Wolf Dubose MD Unavailable [phone] Donovan Zaragoza APRN Unavailable [phone] Mendoza Johnson DO Primary Care Provider [phone] Encounter Details Date Type Department Care Team (Late st Contact Info) Description 11/13/2022 Orders Only External Location [address] [place] [address] Provider, External Social History Tobacco Use Types [...] as of this encounter Care Teams Automotive Technician Instructor Relationship Specialty Start Date End Date Ced Al MD [address] [place] [address] PCP - General 08/20/20 11/18/23 Mendoza Johnson DO [address] [place] [address] PCP - General 11/19/23 Sylvia De La Torre RN [facility] [address] [place] [address] Surgical Navigator Transplant Surgery 01/11/21 Nyasia Moses [place] [id number] Surgical Navigator Transplant Surgery 01/11/21 Wolf Dubose MD [address] [address] Surgeon Transplant Surgery 01/11/21 Donovan Zaragoza APRN [address] [place] [address] Referring Physician Transplant Surgery 01/11/21 documented as of this encounter
--- OUTSIDE RECORDS SUMMARY | 2024-12-17 15:06 | XMS_ITS | Encounter Summary ---
Author Organization [facility] Address [address] [place] [address] Care Team Providers Care Customer Logistics Manager Name Role Phone Ced Al MD Primary Care Provider + [phone] Sylvia De La Torre RN Unavailable [phone] Nyasia Moses Unavailable [phone] Wolf Dubose MD Unavailable [phone] Donovan Zaragoza APRN Unavailable [phone] Mendoza Johnson DO Primary Care Provider [phone] Encounter Details Date Type Department Care Team (Late st Contact Info) Description 11/16/2021 Lab Requisition [facility] [address] [place] [address] Will Bermudez MD [address] 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 100-200 ng/mL Heart transplant.................... 100-300 ng/mL Liver transplant.................... 100-300 ng/mL Lung;heart/lung transplant.......... 100-350 ng/mL Test performed by LC-MS/MS at the [facility]. This test was developed and its performance characteristics determined by [facility]. It has not been cleared or approved by the FDA. The laboratory is regulated under CLIA as qualified to perform high-complexity testing. This test is used for clinical purposes. 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 documented in this encounter Additional Health Concerns Assessment Noted Time A fall risk assessment has been complete d for the patient 06/08/2021 8:58 AM EST A Body Mass Index follow-up plan has been documented for the patient 05/05/2022 10:19 AM EST documented as of this encounter Care Teams Customer Logistics Manager Relationship Specialty Start Date End Date Ced Al MD [address] [place] [address] PCP - General 08/20/20 11/18/23 Mendoza Johnson DO [address] [place] [address] PCP - General 11/19/23 Sylvia De La Torre RN [facility] [address] [place], [place] [address] Surgical Navigator Transplant Surgery 01/11/21 [place] [address] Surgical Navigator Transplant Surgery 01/11/21 Wolf Dubose MD [address] [place] [address] Surgeon Transplant Surgery 01/11/21 Donovan Zaragoza APRN [address] [place] [address] Referring Physician Transplant Surgery 01/11/21 documented as of this encounter
--- OUTSIDE RECORDS SUMMARY | 2024-12-17 15:06 | XMS_ITS | Encounter Summary ---
Author Organization [facility] Address [address] [place] [address] Care Team Providers Care Brainer Name Role Phone Ced Al MD Primary Care Provider + [phone] Sylvia De La Torre RN Unavailable [phone] Nyasia Moses Unavailable [phone] Wolf Dubose MD Unavailable [phone] Donovan Zaragoza APRN Unavailable [phone] Mendoza Johnson DO Primary Care Provider [phone] Encounter Details Date Type Department Care Team (Late st Contact Info) Description 09/21/2021 Lab Requisition [facility] [address] [place] [address] Will Bermudez MD [address] [facility] [address] [place] [address] Liver transplant status (CMS/HCC); 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 100-200 ng/mL Heart transplant.................... 100-300 ng/mL Liver transplant.................... 100-300 ng/mL Lung;heart/lung transplant.......... 100-350 ng/mL Test performed by LC-MS/MS at the [facility]. This test was developed and its performance characteristics determined by [facility]. It has not been cleared or approved by the FDA. The laboratory is regulated under CLIA as qualified to perform high-complexity testing. This test is used for clinical purposes. Blood Venous blood specimen / Unknown 09/21/2021 10:45 AM EDT 09/21/2021 3:33 PM EDT us Will Bermudez MD LAB BLOOD ORDERABLES Final Res ult [facility] [address] [place] [address] documented in this encounter Visit Diagnoses Diagnosis Liver transplant status (CMS/HCC) Other mcc (current) drug therapy documented in this encounter Additional Health Concerns Assessment Noted Time A fall risk assessment has been complete d for the patient 06/08/2021 8:58 AM EST A Body Mass Index follow-up plan has been documented for the patient 05/05/2022 10:19 AM EST documented as of this encounter Care Teams Brainer Relationship Specialty Start Date End Date Ced Al MD [address] [place] [address] PCP - General 08/20/20 11/18/23 Mendoza Johnson DO [address] [place] [address] PCP - General 11/19/23 Sylvia De La Torre RN [facility] [address] [place], [place] [id number] Surgical Navigator Transplant Surgery 01/11/21 [place] [address] Surgical Navigator Transplant Surgery 01/11/21 Wolf Dubose MD [address] [place] [address] Surgeon Transplant Surgery 01/11/21 Donovan Zaragoza APRN [address] [place] [address] Referring Physician Transplant Surgery 01/11/21 documented as of this encounter
== END 2024-12-17 23:59 | disposition home or self-care (01) ==
LOC: LAB 15:04
PROVIDERS: PCP Family Medicine; Visit Provider Physician Assistant
DX: I25.10 Atherosclerotic heart disease of native coronary artery without angina pectoris (principal); R60.9 Edema, unspecified; R60.0 Localized edema; I10 Essential (primary) hypertension
CPT/HCPCS: 84156; 84166

== ENCOUNTER 2024-12-25 08:41 | Outpatient (CLI) | payer MEDICARE, MEDICAID, SELFPAY ==
--- OUTSIDE RECORDS SUMMARY | 2024-12-25 09:04 | XMS_ITS | Encounter Summary ---
Author Organization [facility] Address [address] [place] [address] Care Team Providers Care Reversal Print Inspector Name Role Phone Ced Al MD Primary Care Provider + [phone] Sylvia De La Torre RN Unavailable [phone] Nyasia Moses Unavailable [phone] Wolf Dubose MD Unavailable [phone] Donovan Zaragoza APRN Unavailable [phone] Mendoza Johnson DO Primary Care Provider [phone] Encounter Details Date Type Department Care Team (Late st Contact Info) Description 04/19/2022 Lab Requisition [facility] [address] [place] [address] Karla Kate, FUSE ASSEMBLER [address] [facility] [address] [place] [address] Liver transplant status (CMS/HCC); 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 Social History Tobacco Use [...] documented in this encounter Plan of Treatment Upcoming Encounters Date Type Department Care Team (Late st Contact Info) Description 01/30/2025 9:20 AM EDT Office Visit [facility] [address] [place] [address] Nisreen Wilkinson, FUSE ASSEMBLER [address] [address] documented as of this encounter Procedures Procedure Name Priority Date/Time Associated Diagnosis Comments CYCLOSPORINE LEVEL Routine 04/19/2022 10 :25 AM EST Liver transplant status (CMS/HCC) 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 100-200 ng/mL Heart transplant.................... 100-300 ng/mL Liver transplant.................... 100-300 ng/mL Lung;heart/lung transplant.......... 100-350 ng/mL Test performed by LC-MS/MS at the [facility]. This test was developed and its performance characteristics determined by [facility]. It has not been cleared or approved by the FDA. The laboratory is regulated under CLIA as qualified to perform high-complexity testing. This test is used for clinical purposes. Blood Venous blood specimen / Unknown 04/19/2022 10:25 AM EST 04/19/2022 2:25 PM EST us Karla Kate APRN LAB BLOOD ORDERABLES Final R esult [facility] [address] [place] [address] documented in this encounter Visit Diagnoses Diagnosis Liver transplant status (CMS/HCC) 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 documented in this encounter Additional Health Concerns Assessment Noted Time A fall risk assessment has been complete d for the patient 12/09/2021 7:36 AM EDT A Body Mass Index follow-up plan has been documented for the patient 05/05/2022 10:19 AM EST documented as of this encounter Care Teams Reversal Print Inspector Relationship Specialty Start Date End Date Ced Al MD [address] [place] [address] PCP - General 08/20/20 11/18/23 Mendoza Johnson DO [address] [place] [address] PCP - General 11/19/23 Sylvia De La Torre, RN CH-TRANSPLANT ADMINISTRATION [address] [place] [address] Surgical Navigator Transplant Surgery 01/11/21 [place] [address] Surgical Navigator Transplant Surgery 01/11/21 Wolf Dubose MD [address] [address] Surgeon Transplant Surgery 01/11/21 Donovan Zaragoza APRN [address] [place] [address] Referring Physician Transplant Surgery 01/11/21 documented as of this encounter
--- OUTSIDE RECORDS SUMMARY | 2024-12-25 09:04 | XMS_ITS | Encounter Summary ---
Author Organization [facility] Address [address] [place] [address] Care Team Providers Care Chips Screen Tender Name Role Phone Ced Al MD Primary Care Provider + [phone] Sylvia De La Torre RN Unavailable [phone] Nyasia Moses Unavailable [phone] Wolf Dubose MD Unavailable [phone] Donovan Zaragoza APRN Unavailable [phone] Mendoza Johnson DO Primary Care Provider [phone] Encounter Details Date Type Department Care Team (Late st Contact Info) Description 02/23/2022 Lab Requisition [facility] [address] [place] [address] Will Bermudez MD [address] [facility] [address] [place] [address] Liver transplant status (CMS/HCC); Other mcfp (current) drug therapy Social History Tobacco Use [...] Description 01/30/2025 9:20 AM EDT Office Visit [facility] [address] [place] [address] Nisreen Wilkinson, BUYER ASSISTANT [address] [address] documented as of this encounter Procedures Procedure Name Priority Date/Time Associated Diagnosis Comments CYCLOSPORINE LEVEL Routine 02/22/2022 10 :20 AM EST Liver transplant status (CMS/HCC) Other mcfp (current) drug therapy documented in this encounter Results * (ABNORMAL) Cyclosporine (02/22/2022 10:20 AM EST) Cyclosporine 96(L) 100 - 400 ng/mL 02/24/2022 10:47 AM EST [facility] Comment: Cyclosporine therapeutic range: Kidney transplant................... 100-200 ng/mL Heart transplant.................... 100-300 ng/mL Liver transplant.................... 100-300 ng/mL Lung;heart/lung transplant.......... 100-350 ng/mL Test performed by LC-MS/MS at the [facility]. This test was developed and its performance characteristics determined by [facility]. It has not been cleared or approved by the FDA. The laboratory is regulated under CLIA as qualified to perform high-complexity testing. This test is used for clinical purposes. 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 documented in this encounter Additional Health Concerns Assessment Noted Time A fall risk assessment has been complete d for the patient 12/09/2021 7:36 AM EDT A Body Mass Index follow-up plan has been documented for the patient 05/05/2022 10:19 AM EST documented as of this encounter Care Teams Chips Screen Tender Relationship Specialty Start Date End Date Ced Al MD [address] [place] [address] PCP - General 08/20/20 11/18/23 Mnedoza Johnson DO [address] [place] [address] PCP - General 11/19/23 Sylvia De La Torre, RN CH-TRANSPLANT ADMINISTRATION [address] [place] [address] Surgical Navigator Transplant Surgery 01/11/21 [place] [address] Surgical Navigator Transplant Surgery 01/11/21 Wolf Dubose MD [address] [facility] [place] [address] Surgeon Transplant Surgery 01/11/21 Donovan Zaragoza APRN [address] [place] [address] Referring Physician Transplant Surgery 01/11/21 documented as of this encounter
--- OUTSIDE RECORDS SUMMARY | 2024-12-25 09:04 | XMS_ITS | Encounter Summary ---
Author Organization [facility] Address [address] [place] [address] Care Team Providers Care Cocktail Server Name Role Phone Ced Al MD Primary Care Provider + [phone] Sylvia De La Torre RN Unavailable [phone] Nyasia Moses Unavailable [phone] Wolf Dubose MD Unavailable [phone] Donovan Zaragoza APRN Unavailable [phone] Mendoza Johnson DO Primary Care Provider [phone] Encounter Details Date Type Department Care Team (Late st Contact Info) Description 02/08/2022 Lab Requisition [facility] [address] [place] [address] Will Bermudez MD [address] [facility] [address] [place] [address] Liver transplant status (CMS/HCC) Social History Tobacco [...] Description 01/30/2025 9:20 AM EDT Office Visit [facility] [address] [place] [address] Nisreen Wilkinson, INSTRUCTOR EXTENSION WORK [address] [address] documented as of this encounter Procedures Procedure Name Priority Date/Time Associated Diagnosis Comments CYCLOSPORINE LEVEL Routine 02/08/2022 10 :00 AM EDT Liver transplant status (CMS/HCC) documented in this encounter Results * Cyclosporine (02/08/2022 10:00 AM EDT) Cyclosporine 110 100 - 400 ng/mL 02/09/2022 2:08 PM EDT [facility] Comment: Cyclosporine therapeutic range: Kidney transplant................... 100-200 ng/mL Heart transplant.................... 100-300 ng/mL Liver transplant.................... 100-300 ng/mL Lung;heart/lung transplant.......... 100-350 ng/mL Test performed by LC-MS/MS at the [facility]. This test was developed and its performance characteristics determined by [facility]. It has not been cleared or approved by the FDA. The laboratory is regulated under CLIA as qualified to perform high-complexity testing. This test is used for clinical purposes. Blood Venous blood specimen / Unknown 02/08/2022 10:00 AM EDT 02/08/2022 2:27 PM EDT us Will Bermudez MD LAB BLOOD ORDERABLES Final Res ult [facility] [address] [place] [address] documented in this encounter Visit Diagnoses Diagnosis Liver transplant status (CMS/HCC) documented in this encounter Additional Health Concerns Assessment Noted Time A fall risk assessment has been complete d for the patient 12/09/2021 7:36 AM EDT A Body Mass Index follow-up plan has been documented for the patient 05/05/2022 10:19 AM EST documented as of this encounter Care Teams Cocktail Server Relationship Specialty Start Date End Date Ced Al MD [address] [place] [address] PCP - General 08/20/20 11/18/23 Mendoza Johnson DO [address] [place] [address] PCP - General 11/19/23 Sylvia De La Torre RN CH-TRANSPLANT ADMINISTRATION [address] [place] [address] Surgical Navigator Transplant Surgery 01/11/21 [place] [address] Surgical Navigator Transplant Surgery 01/11/21 Wolf Dubose MD [address] [address] Surgeon Transplant Surgery 01/11/21 Donovan Zaragoza APRN [address] [address] Referring Physician Transplant Surgery 01/11/21 documented as of this encounter
--- OUTSIDE RECORDS SUMMARY | 2024-12-25 09:04 | XMS_ITS | Encounter Summary ---
Author Organization [facility] Address [address] [place] [address] Care Team Providers Care Radiotelegraph Operator Servicer Name Role Phone Ced Al MD Primary Care Provider + [phone] Sylvia De La Torre RN Unavailable [phone] Nyasia Moses Unavailable [phone] Wolf Dubose MD Unavailable [phone] Donovan Zaragoza APRN Unavailable [phone] Mendoza Johnsno DO Primary Care Provider [phone] Encounter Details Date Type Department Care Team (Late st Contact Info) Description 2020 Lab Requisition [facility] [address] [place] [address] Dot Monge Encounter for general adult medical [...] Description 01/30/2025 9:20 AM EDT Office Visit [facility] [address] [place] [address] Nisreen Wilkinson, EMBROIDERY OPERATOR [address] [address] documented as of this encounter Procedures Procedure Name Priority Date/Time Associated Diagnosis Comments CYCLOSPORINE LEVEL Routine 2020 5: 20 AM EDT Encounter for general adult medical examination without abnormal findings documented in this encounter Results * Cyclosporine (2020 5:20 AM EDT) Cyclosporine 161 100 - 400 ng/mL 2020 4:46 PM EDT [facility] Comment: Cyclosporine therapeutic range: Kidney transplant................... 100-200 ng/mL Heart transplant.................... 100-300 ng/mL Liver transplant.................... 100-300 ng/mL Lung;heart/lung transplant.......... 100-350 ng/mL Test performed by LC-MS/MS at the [facility]. This test was developed and its performance characteristics determined by [facility]. It has not been cleared or approved by the FDA. The laboratory is regulated under CLIA as qualified to perform high-complexity testing. This test is used for clinical purposes. Blood Venous blood specimen / Unknown 2020 5:20 AM EDT 2020 10:06 AM EDT us [facility] BLOOD ORDERABLES Final Resul t [facility] [address] [place] [address] documented in this encounter Visit Diagnoses Diagnosis Encounter for general adult medical examination without abnormal findings documented in this encounter Additional Health Concerns Assessment Noted Time A fall risk assessment has been complete d for the patient 11/16/2020 8:39 AM EDT documented as of this encounter Care Teams Radiotelegraph Operator Servicer Relationship Specialty Start Date End Date Ced Al MD [address] [place] [address] PCP - General 08/20/20 11/18/23 Mendoza Johnson DO [address] [place] [address] PCP - General 11/19/23 Sylvia De La Torre RN CH-TRANSPLANT ADMINISTRATION [address] [place] [phone] Surgical Navigator Transplant Surgery 01/11/21 Nyasia [address] [place] [phone] Surgical Navigator Transplant Surgery 01/11/21 Wolf Dubose MD [address] [place] [address] Surgeon Transplant Surgery 01/11/21 Donovan Zaragoza APRN [address] [place] [address] Referring Physician Transplant Surgery 01/11/21 documented as of this encounter
--- OUTSIDE RECORDS SUMMARY | 2024-12-25 09:04 | XMS_ITS | Encounter Summary ---
Author Organization [facility] Address [address] [place] [address] Care Team Providers Care Casting Machine Set Up Operator Name Role Phone Ced Al MD Primary Care Provider + [phone] Sylvia De La Torre RN Unavailable [phone] Nyasia Moses Unavailable [phone] Wolf Dubose MD Unavailable [phone] Donovan Zaragoza APRN Unavailable [phone] Mendoza Johnson DO Primary Care Provider [phone] Encounter Details Date Type Department Care Team (Late st Contact Info) Description 08/11/2022 Orders Only External Location [address] [place] [address] Provider, External Social History Tobacco Use Types [...] Description 01/30/2025 9:20 AM EDT Office Visit [facility] [address] [facility] [address] [place] [address] Nisreen Wilkinson, BILLET GRINDER [address] [address] documented as of this encounter Procedures Procedure Name Priority Date/Time Associated Diagnosis Comments XR OUTSIDE IMAGES 08/11/2022 9:20 AM EDT documented in this encounter Results * XR OUTSIDE IMAGES (08/11/2022 9:20 AM EDT) Anatomical Region Laterality Modality Radiographic Maru ging 08/11/2022 9:20 AM EDT us External Provider IMG XR [...] documented as of this encounter Care Teams Casting Machine Set Up Operator Relationship Specialty Start Date End Date Ced Al MD [address] [place], [place] [id number] PCP - General 08/20/20 11/18/23 Mendoza Johnson DO [address] [place], [place] [address] PCP - General 11/19/23 Sylvia De La Torre RN CH-TRANSPLANT ADMINISTRATION [address] [place] [address] Surgical Navigator Transplant Surgery 01/11/21 [place] [address] Surgical Navigator Transplant Surgery 01/11/21 Wolf Dubose MD [address] [place] [address] Surgeon Transplant Surgery 01/11/21 Donovan Zaragoza APRN [address] [place] [address] Referring Physician Transplant Surgery 01/11/21 documented as of this encounter
--- OUTSIDE RECORDS SUMMARY | 2024-12-25 09:04 | XMS_ITS ---
Author Organization [facility] Address [address] [place] [address] Care Team Providers Care Emergency Medical Dispatcher Name Role Phone Sylvia De La Torre RN Unavailable [phone] Nyasia Moses Unavailable [phone] Wolf Dubose MD Unavailable [phone] Donovan Zaragoza APRN Unavailable [phone] Mendoza Johnson DO Primary Care Provider [phone] Transplant Episode Liver Recipient [facility] ([place], [place]) [facility] Organ Received: Liver Transplanted on 11/21/2020 Marked as Active Follow-up on 11/21/2020 Liver CoordinatorChichi Babb RN Fax: N/A Email: N/A Augustine Organ Diagnosis Organ Primary Contributory Liver Alcoholic [...] Fax Email Chichi Babb, FREDA Liver Coordinator [phone] N/A N /A Wolf Dubose MD Surgeon [phone] N/A LAUREL RiderW Fatback Trimmer [phone] N/A N/A Shona Guerrero APRN Referring Physician [phone] N/A Ced Al MD Primary Care Provider [phone] N/A Will Bermudez MD Transplant Physician [phone] N/A Events Post-Transplant Pre-Transplant Admitted: 11/16/2020 Referred: 09/20/2020 Transplanted: 11/21/2020 Evaluation began: 1 Discharged: 12/15/2020 Committee: 10/18/2020 Center waitlisted: 1
--- OUTSIDE RECORDS SUMMARY | 2024-12-25 09:04 | XMS_ITS | Encounter Summary ---
Author Organization [facility] Address [address] [place] [address] Care Team Providers Care Product Architect Name Role Phone Ced Al MD Primary Care Provider + [phone] Sylvia De La Torre RN Unavailable [phone] Nyasia Moses Unavailable [phone] Wolf Dubose MD Unavailable [phone] Donovan Zaragoza APRN Unavailable [phone] Mendoza Johnson DO Primary Care Provider [phone] Encounter Details Date Type Department Care Team (Late st Contact Info) Description 03/28/2021 Lab Requisition [facility] [address] [place] [address] Karla Kate, MARKET RISK MANAGER [address] [facility] [address] [place] [address] Liver transplant status (CMS/HCC); Other jail (current) drug therapy Social History Tobacco Use [...] Description 01/30/2025 9:20 AM EDT Office Visit [facility] [address] [place] [address] Nisreen Wilkinson, MARKET RISK MANAGER [address] [address] documented as of this encounter Procedures Procedure Name Priority Date/Time Associated Diagnosis Comments CYCLOSPORINE LEVEL Routine 03/28/2021 10 :26 AM EST Liver transplant status (CMS/HCC) 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 100-200 ng/mL Heart transplant.................... 100-300 ng/mL Liver transplant.................... 100-300 ng/mL Lung;heart/lung transplant.......... 100-350 ng/mL Test performed by LC-MS/MS at the [facility]. This test was developed and its performance characteristics determined by [facility]. It has not been cleared or approved by the FDA. The laboratory is regulated under CLIA as qualified to perform high-complexity testing. This test is used for clinical purposes. Blood Venous blood specimen / Unknown 03/28/2021 10:26 AM EST 03/28/2021 1:41 PM EST us Karla Kate APRN LAB BLOOD ORDERABLES Final R esult [facility] [address] [place] [address] documented in this encounter Visit Diagnoses Diagnosis Liver transplant status (CMS/HCC) Other jail (current) drug therapy documented in this encounter Additional Health Concerns Assessment Noted Time A fall risk assessment has been complete d for the patient 03/08/2021 8:05 AM EST documented as of this encounter Care Teams Product Architect Relationship Specialty Start Date End Date Ced Al MD [address] [place] [address] PCP - General 08/20/20 11/18/23 Mendoza Johnson DO [address] [place] [address] PCP - General 11/19/23 Sylvia De La Torre, RN CH-TRANSPLANT ADMINISTRATION [address] [place] [address] Surgical Navigator Transplant Surgery 01/11/21 [place] [address] Surgical Navigator Transplant Surgery 01/11/21 Wolf Dubose MD [address] [place] [address] Surgeon Transplant Surgery 01/11/21 Donovan Zaragoza APRN [address] [place] [address] Referring Physician Transplant Surgery 01/11/21 documented as of this encounter
--- OUTSIDE RECORDS SUMMARY | 2024-12-25 09:04 | XMS_ITS | Encounter Summary ---
Author Organization [facility] Address [address] [place] [address] Care Team Providers Care Dentistry Professor Name Role Phone Ced Al MD Primary Care Provider + [phone] Sylvia De La Torre RN Unavailable [phone] Nyasia Moses Unavailable [phone] Wolf Dubose MD Unavailable [phone] Donovan Zaragoza APRN Unavailable [phone] Mendoza Johnson DO Primary Care Provider [phone] Encounter Details Date Type Department Care Team (Late st Contact Info) Description 10/19/2021 Lab Requisition [facility] [address] [place] [address] Will Bermudez MD [address] [facility] [address] [place] [address] Liver transplant status (CMS/HCC); Other fci (current) drug therapy Social History Tobacco Use [...] Description 01/30/2025 9:20 AM EDT Office Visit [facility] [address] [place] [address] Nisreen Wilkinson, HORSE WRANGLER [address] [address] documented as of this encounter Procedures Procedure Name Priority Date/Time Associated Diagnosis Comments CYCLOSPORINE LEVEL Routine 10/18/2021 9: 30 AM EDT Liver transplant status (CMS/HCC) Other fci (current) drug therapy documented in this encounter Results * (ABNORMAL) Cyclosporine (10/18/2021 9:30 AM EDT) Cyclosporine 841(HH) 100 - 400 ng/mL 10/20/2021 12:49 PM EDT [facility] Comment: Cyclosporine therapeutic range: Kidney transplant................... 100-200 ng/mL Heart transplant.................... 100-300 ng/mL Liver transplant.................... 100-300 ng/mL Lung;heart/lung transplant.......... 100-350 ng/mL Test performed by LC-MS/MS at the [facility]. This test was developed and its performance characteristics determined by [facility]. It has not been cleared or approved by the FDA. The laboratory is regulated under CLIA as qualified to perform high-complexity testing. This test is used for clinical purposes. 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 documented in this encounter Additional Health Concerns Assessment Noted Time A fall risk assessment has been complete d for the patient 06/08/2021 8:58 AM EST A Body Mass Index follow-up plan has been documented for the patient 05/05/2022 10:19 AM EST documented as of this encounter Care Teams Dentistry Professor Relationship Specialty Start Date End Date Ced Al MD [address] [place] [address] PCP - General 08/20/20 11/18/23 Mendoza Johnson DO [address] [place] [address] PCP - General 11/19/23 Sylvia De La Torre, RN CH-TRANSPLANT ADMINISTRATION [address] [place] [address] Surgical Navigator Transplant Surgery 01/11/21 [place] [address] Surgical Navigator Transplant Surgery 01/11/21 Wolf Dubose MD [address] [place] [address] Surgeon Transplant Surgery 01/11/21 Donovan Zaragoza APRN [address] [place] [address] Referring Physician Transplant Surgery 01/11/21 documented as of this encounter
--- OUTSIDE RECORDS SUMMARY | 2024-12-25 09:04 | XMS_ITS | Encounter Summary ---
Author Organization [facility] Address [address] [place] [address] Care Team Providers Care Inspector Scales Name Role Phone Ced Al MD Primary Care Provider + [phone] Sylvia De La Torre RN Unavailable [phone] Nyasia Moses Unavailable [phone] Wolf Dubose MD Unavailable [phone] Donovan Zaragoza APRN Unavailable [phone] Mendoza Johnson DO Primary Care Provider [phone] Encounter Details Date Type Department Care Team (Late st Contact Info) Description 08/11/2022 Orders Only External Location [address] [place] [address] Ced Al MD [address] [place] [address] Social History Tobacco Use Types [...] Description 01/30/2025 9:20 AM EDT Office Visit [place] [address] [facility] [address] [place] [address] Nisreen Wilkinson, CROSS ENTERPRISE INTEGRATOR [address] [address] documented as of this encounter [...] documented as of this encounter Care Teams Inspector Scales Relationship Specialty Start Date End Date Ced Al MD [address] [place] [address] PCP - General 08/20/20 11/18/23 Mendoza Johnson DO [address] [place] [address] PCP - General 11/19/23 Sylvia De La Torre RN CH-TRANSPLANT ADMINISTRATION [address] [place], [place] [id number] Surgical Navigator Transplant Surgery 01/11/21 Nyasia Moses [place] [id number] Surgical Navigator Transplant Surgery 01/11/21 Wolf Dubose MD [address] [address] Surgeon Transplant Surgery 01/11/21 Donovan Zaragoza APRN [address] [place] [address] Referring Physician Transplant Surgery 01/11/21 documented as of this encounter
--- OUTSIDE RECORDS SUMMARY | 2024-12-25 09:04 | XMS_ITS | Encounter Summary ---
Author Organization [facility] Address [address] [place] [address] Care Team Providers Care Color Making Supervisor Name Role Phone Ced Al MD Primary Care Provider + [phone] Sylvia De La Torre RN Unavailable [phone] Nyasia Moses Unavailable [phone] Wolf Dubose MD Unavailable [phone] Donovan Zaragoza APRN Unavailable [phone] Mendoza Johnson DO Primary Care Provider [phone] Encounter Details Date Type Department Care Team (Late st Contact Info) Description 01/22/2021 Lab Requisition [facility] [address] [place] [address] Will Bermudez MD [address] [facility] [address] [place] [address] Encounter for general adult medical examination without [...] Description 01/30/2025 9:20 AM EDT Office Visit [facility] [address] [place] [address] Nisreen Wilkinson, ERIKA [address] [address] documented as of this encounter Procedures Procedure Name Priority Date/Time Associated Diagnosis Comments CYCLOSPORINE LEVEL Routine 01/22/2021 12 :09 PM EDT Encounter for general adult medical examination without abnormal findings documented in this encounter Results * (ABNORMAL) Cyclosporine (01/22/2021 12:09 PM EDT) Cyclosporine 484(HH) 100 - 400 ng/mL 01/23/2021 1:45 PM EDT [facility] Comment: Cyclosporine therapeutic range: Kidney transplant................... 100-200 ng/mL Heart transplant.................... 100-300 ng/mL Liver transplant.................... 100-300 ng/mL Lung;heart/lung transplant.......... 100-350 ng/mL Test performed by LC-MS/MS at the [facility]. This test was developed and its performance characteristics determined by [facility]. It has not been cleared or approved by the FDA. The laboratory is regulated under CLIA as qualified to perform high-complexity testing. This test is used for clinical purposes. Blood Venous blood specimen / Unknown 01/22/2021 12:09 PM EDT 01/22/2021 3:40 PM EDT us Will Bermudez MD LAB BLOOD ORDERABLES Final Res ult Performing Organization Address City/State/[facility] Co de Phone Number [facility] [address] [place] [address] documented in this encounter Visit Diagnoses Diagnosis Encounter for general adult medical examination without abnormal findings documented in this encounter Additional Health Concerns Assessment Noted Time A fall risk assessment has been complete d for the patient 01/04/2021 7:28 AM EDT documented as of this encounter Care Teams Color Making Supervisor Relationship Specialty Start Date End Date Ced Al MD [address] [place] [address] PCP - General 08/20/20 11/18/23 Mendoza Johnson DO [address] [place] [address] PCP - General 11/19/23 Sylvia De La Torre, RN CH-TRANSPLANT ADMINISTRATION [address] [place] [address] Surgical Navigator Transplant Surgery 01/11/21 [place] [address] Surgical Navigator Transplant Surgery 01/11/21 Wolf Dubose MD [address] [place] [address] Surgeon Transplant Surgery 01/11/21 Donovan Zaragoza APRN [address] [place] [address] Referring Physician Transplant Surgery 01/11/21 documented as of this encounter
--- OUTSIDE RECORDS SUMMARY | 2024-12-25 09:04 | XMS_ITS | Encounter Summary ---
Author Organization [facility] Address [address] [place] [address] Care Team Providers Care Property And Equipment Clerk Name Role Phone Sylvia De La Torre RN Unavailable [phone] Nyasia Moses Unavailable [phone] Wolf Dubose MD Unavailable [phone] Donovan Zaragoza APRN Unavailable [phone] Mendoza Johnson DO Primary Care Provider [phone] Reason for Visit * Reason Comments Med Refill Encounter Details Date Type Department Care Team (Late st Contact Info) Description 12/23/2024 Refill [facility] [address] [facility] [place] [address] Karla Kate, ART EDITOR [address] [address] Social History Tobacco Use Types Packs/Day Years [...] Description 01/30/2025 9:20 AM EDT Office Visit [facility] [address] [place] [address] Nisreen Wilkinson, ERIKA [address] [address] documented as of this encounter Visit Diagnoses Not on filedocumented in this encounter Additional Health Concerns Assessment Noted Time A fall risk assessment has been complete d for the patient 05/02/2024 2:30 PM EST A Body Mass Index follow-up plan has been documented for the patient 05/02/2024 2:56 PM EST documented as of this encounter Care Teams Property And Equipment Clerk Relationship Specialty Start Date End Date Mendoza Johnson DO [address] [place] [id number] PCP - General 11/19/23 Sylvia De La Torre RN CH-TRANSPLANT ADMINISTRATION [address] [place] [address] Surgical Navigator Transplant Surgery 01/11/21 [place] [address] Surgical Navigator Transplant Surgery 01/11/21 Wolf Dubose MD [address] [address] Surgeon Transplant Surgery 01/11/21 Donovan Zaragoza APRN [address] [facility] [place] [address] Referring Physician Transplant Surgery 01/11/21 documented as of this encounter
--- OUTSIDE RECORDS SUMMARY | 2024-12-25 09:04 | XMS_ITS | Encounter Summary ---
Author Organization [facility] Address [address] [place] [address] Care Team Providers Care Dye Machine Tender Name Role Phone Ced Al MD Primary Care Provider + [phone] Sylvia De La Torre RN Unavailable Nyasia Moses Unavailable [phone] Wolf Dubose MD Unavailable [phone] Donovan Zaragoza APRN Unavailable [phone] Mendoza Johnson DO Primary Care Provider [phone] Encounter Details Date Type Department Care Team (Late st Contact Info) Description 11/13/2022 Orders Only External Location [address] [place] [address] Provider, External Social History Tobacco Use Types [...] Questionnaire -2 Score 0 11/14/2022 10:13 AM EDT Rachel Hernandes documented as of this encounter [...] Description 01/30/2025 9:20 AM EDT Office Visit [facility] [address] [place] [address] Nisreen Wilkinson, IC DESIGN ENGINEER [address] [address] documented as of this encounter Procedures Procedure Name Priority Date/Time Associated Diagnosis Comments XR OUTSIDE IMAGES 11/13/2022 9:29 AM EDT documented in this encounter Results * XR OUTSIDE IMAGES (11/13/2022 9:29 AM EDT) Anatomical Region Laterality Modality Radiographic Maru ging 11/13/2022 9:29 AM EDT External Provider IMG XR PROCEDURES [...] documented as of this encounter Care Teams Dye Machine Tender Relationship Specialty Start Date End Date Ced Al MD [address] [place] [address] PCP - General 08/20/20 11/18/23 Mendoza Johnson DO [address] [place] [address] PCP - General 11/19/23 Sylvia De La Torre RN CH-TRANSPLANT ADMINISTRATION [address] [place] [address] Surgical Navigator Transplant Surgery 01/11/21 [place] [address] Surgical Navigator Transplant Surgery 01/11/21 Wolf Dubose MD [address] [address] Surgeon Transplant Surgery 01/11/21 Donovan Zaragoza APRN [address] [place] [address] Referring Physician Transplant Surgery 01/11/21 documented as of this encounter
--- OUTSIDE RECORDS SUMMARY | 2024-12-25 09:04 | XMS_ITS | Encounter Summary ---
Author Organization [facility] Address [address] [place] [address] Care Team Providers Care Regulatory Process Manager Name Role Phone Ced Al MD Primary Care Provider + [phone] Sylvia De La Torre RN Unavailable [phone] Nyasia Moses Unavailable [phone] Wolf Dubose MD Unavailable [phone] Donovan Zaragoza APRN Unavailable [phone] Mendoza Johnson DO Primary Care Provider [phone] Encounter Details Date Type Department Care Team (Late st Contact Info) Description 02/21/2021 Lab Requisition [facility] [address] [place] [address] Karla Kate, ENGINE RESEARCH ENGINEER [address] [facility] [address] [place] [address] Liver transplant status (CMS/HCC) Social History Tobacco [...] Description 01/30/2025 9:20 AM EDT Office Visit [facility] [address] [place] [address] Nisreen Wilkinson, ERIKA [address] [address] documented as of this encounter Procedures Procedure Name Priority Date/Time Associated Diagnosis Comments CYCLOSPORINE LEVEL Routine 02/21/2021 10 :47 AM EST Liver transplant status (CMS/HCC) documented in this encounter Results * Cyclosporine (02/21/2021 10:47 AM EST) Cyclosporine 309 100 - 400 ng/mL 02/22/2021 1:44 PM EST [facility] Comment: Cyclosporine therapeutic range: Kidney transplant................... 100-200 ng/mL Heart transplant.................... 100-300 ng/mL Liver transplant.................... 100-300 ng/mL Lung;heart/lung transplant.......... 100-350 ng/mL Test performed by LC-MS/MS at the [facility]. This test was developed and its performance characteristics determined by [facility]. It has not been cleared or approved by the FDA. The laboratory is regulated under CLIA as qualified to perform high-complexity testing. This test is used for clinical purposes. Blood Venous blood specimen / Unknown 02/21/2021 10:47 AM EST 02/21/2021 4:16 PM EST Karla Kate APRN LAB BLOOD ORDERABLES Final R esult [facility] [address] [place] [address] documented in this encounter Visit Diagnoses Diagnosis Liver transplant status (CMS/HCC) documented in this encounter Additional Health Concerns Assessment Noted Time A fall risk assessment has been complete d for the patient 02/16/2021 9:03 AM EST documented as of this encounter Care Teams Regulatory Process Manager Relationship Specialty Start Date End Date Ced Al MD [address] [place] [address] PCP - General 08/20/20 11/18/23 Mendoza Johnson DO [address] [place] [address] PCP - General 11/19/23 Sylvia De La Torre, FREDA CH-TRANSPLANT ADMINISTRATION [address] [place] [address] Surgical Navigator Transplant Surgery 01/11/21 [place] [address] Surgical Navigator Transplant Surgery 01/11/21 Wolf Dubose MD [address] [address] Surgeon Transplant Surgery 01/11/21 Donovan Zaragoza APRN [address] [place] [address] Referring Physician Transplant Surgery 01/11/21 documented as of this encounter
--- OUTSIDE RECORDS SUMMARY | 2024-12-25 09:04 | XMS_ITS | Encounter Summary ---
Author Organization [facility] Address [address] [facility] [place] [address] Care Team Providers Care Electrical Accessories Assembler Name Role Phone Ced Al MD Primary Care Provider + [phone] Sylvia De La Torre RN Unavailable [phone] Nyasia Moses Unavailable [phone] Wolf Dubose MD Unavailable [phone] Donovan Zaragoza APRN Unavailable [phone] Mendoza Johnson DO Primary Care Provider [phone] Encounter Details Date Type Department Care Team (Late st Contact Info) Description 11/02/2021 Lab Requisition [facility] [address] [place] [address] Will Bermudez MD [address] [facility] [address] [place] [address] Liver transplant status (CMS/HCC) Social History Tobacco [...] Description 01/30/2025 9:20 AM EDT Office Visit [facility] [address] [place] [address] Nisreen Wilkinson, CERTIFIED MEDICAL DOSIMETRIST [address] [address] documented as of this encounter Procedures Procedure Name Priority Date/Time Associated Diagnosis Comments CYCLOSPORINE LEVEL Routine 11/02/2021 9: 40 AM EDT Liver transplant status (CMS/HCC) documented in this encounter Results * Cyclosporine (11/02/2021 9:40 AM EDT) Cyclosporine 130 100 - 400 ng/mL 11/03/2021 2:30 PM EDT [facility] Comment: Cyclosporine therapeutic range: Kidney transplant................... 100-200 ng/mL Heart transplant.................... 100-300 ng/mL Liver transplant.................... 100-300 ng/mL Lung;heart/lung transplant.......... 100-350 ng/mL Test performed by LC-MS/MS at the [facility]. This test was developed and its performance characteristics determined by [facility]. It has not been cleared or approved by the FDA. The laboratory is regulated under CLIA as qualified to perform high-complexity testing. This test is used for clinical purposes. Blood Venous blood specimen / Unknown 11/02/2021 9:40 AM EDT 11/02/2021 2:44 PM EDT us Will Bermudez MD LAB BLOOD ORDERABLES Final Res ult [facility] [address] [place] [address] documented in this encounter Visit Diagnoses Diagnosis Liver transplant status (CMS/HCC) documented in this encounter Additional Health Concerns Assessment Noted Time A fall risk assessment has been complete d for the patient 06/08/2021 8:58 AM EST A Body Mass Index follow-up plan has been documented for the patient 05/05/2022 10:19 AM EST documented as of this encounter Care Teams Electrical Accessories Assembler Relationship Specialty Start Date End Date Ced Al MD [address] [place] [address] PCP - General 08/20/20 11/18/23 Mendoza Johnson DO [address] [place] [address] PCP - General 11/19/23 Sylvia De La Torre RN CH-TRANSPLANT ADMINISTRATION [address] [place] [address] Surgical Navigator Transplant Surgery 01/11/21 [place] [address] Surgical Navigator Transplant Surgery 01/11/21 Wolf Dubose MD [address] [place] [address] Surgeon Transplant Surgery 01/11/21 Donovan Zaragoza APRN [address] [place] [address] Referring Physician Transplant Surgery 01/11/21 documented as of this encounter
--- OUTSIDE RECORDS SUMMARY | 2024-12-25 09:04 | XMS_ITS | Clinical Summary ---
Author Organization [facility] Address [address] [place] [address] Care Team Providers Care Delphi Programmer Name Role Phone Sylvia De La Torre RN Unavailable [phone] Nyasia Moses Unavailable Wolf Dubose MD Unavailable [phone] Donovan Zaragoza APRN Unavailable [phone] Mendoza Johnson DO Primary Care Provider Allergies No known active allergies Medications levothyroxine (Synthroid, Levoxyl) 25 MCG tablet Take 1 tablet (25 mcg) by mouth 1 (one) time each day. Active B Complex Vitamins (B-Complex/B-12) tablet 1,000 mg 1 (one) time each day. 02/24/20 22 Active alendronate (Fosamax) 70 MG tablet 01/18/20 23 Active atorvastatin (Lipitor) 20 MG tablet 12/28/19 23 Active calcium carbonate 1500 (600 Ca) MG tablet 11/24/19 23 Active carvedilol (Coreg) 6.25 MG tablet Take by mouth in the morning and in the evening. Take with meals. 12/28/19 23 Active doxazosin (Cardura) 4 MG tablet Take 1 tablet (4 mg) by mouth nightly. 12/28/19 23 Active losartan (Cozaar) 25 MG tablet Take 1 tablet (25 mg) by mouth daily. 10/11/20 23 Active ondansetron ODT (Zofran-ODT) 4 MG disintegrating tablet every 8 (eight) hours if needed. 01/18/20 Active HYDROcodone-acetam inophen (Jarrell) 7.5-325 MG tablet 01/20/20 Active hydrALAZINE (Apresoline) 25 MG tablet Take by mouth daily. 02/10/20 Active isosorbide dinitrate (Isordil) 20 MG tablet Take 1 tablet (20 mg) by mouth in the morning and 1 tablet (20 mg) at noon and 1 tablet (20 mg) in the evening. 02/10/20 Active torsemide (Demadex) 20 MG tablet Take 1 tablet (20 mg) by mouth 1 (one) time each day. 03/15/20 Active cycloSPORINE modified (Gengraf) 25 MG capsule Take 2 capsules (50 mg) by mouth 2 (two) times a day. 120 capsule 11 05/01/19 25 026 Active mycophenolate (Cellcept) 250 MG capsuleIndications :Status post liver transplantation (CMS/HCC) Take 1 capsule (250 mg) by mouth 2 (two) times a day. Z94.4 60 capsule 11 06/06/19 Active aspirin 81 MG EC tablet Take 1 tablet (81 mg) by mouth daily. Active CYANOCOBALAMIN PO Take by mouth. Active sodium bicarbonate 650 MG tablet TAKE 1 TABLET BY MOUTH TWO TIMES A DAY 60 tablet 2 12/25/19 25 Active sodium bicarbonate 650 MG tablet Take 1 tablet (650 mg) by mouth 2 (two) times a day. 60 tablet 11 11/26/19 24 025 Discontinued Active Problems Problem Noted Date Diagnosed Date Transplanted liver 11/16/2021 Hypothyroidism 03/09/2021 Congenital kidney disease 03/09/2021 History of psychiatric treatment 03/09/2021 Chronic obstructive pulmonary disease 03/09/2021 Anemia 03/09/2021 Right inguinal hernia 01/11/2021 ESRD (end stage renal disease) 12/29/2020 Overview (12/29/2020): Added automatically from request for surgery [id number] Complications due to vascular device, implant, a nd graft 12/29/2020 Overview (12/29/2020): Added automatically from request for surgery [id number] Secondary esophageal varices 11/20/2020 End stage liver [...] was on 11/10/20. Inguinal hernia, right 10/08/202010/17 Encounters Date Type Department Care Team Description 12/23/2024 Refill [facility] [address] [facility] [address] [place] [address] Karla Kate, BRUSH FABRICATION SUPERVISOR 12/18/2024 Orders Only [facility] [address] [place] [address] Josephine Parikh Acute kidney injury (CMS/HCC) (Primary Dx); Vitamin D insufficiency from Last 3 Months Immunizations Immunization Administration Dates Next Due Hep A, Adult 10/13/2020 Hep B, adult 10/13/2020 Influenza, high-dose, quadrivalent 02/19/2023 Influenza, injectable, quadrivalent, preservativ e free 03/10/2022 Pfizer-BioNTech COVID-19 Biv alent (Lovell Cap) 12+ years (rbuina-sucrose) 01/11/2022 Family History Medical History Relation Name [...] 05/02/2024 2:24 PM EST Plan of Treatment Upcoming Encounters Date Type Department Care Team (Late st Contact Info) Description 01/30/2025 9:20 AM EDT Office Visit [facility] [address] [place] [address] Nisreen Wilkinson, BRUSH FABRICATION SUPERVISOR [address] [address] Health Maintenance Due Date Last Done Comments [...] 04/15/2021 10/13/2020 [facility]-Lung Cancer Screening 11/28/2021 11/28/2020 [id number] Vaccine (3 - Pfizer risk series) 02/08/2022 [...] this topic Medical Devices Implanted Type Area Oracle Identity Management Consultant Device Identifier Shelf Expiration Date Model / Serial / Lot Stent Cotton Bashir 10fr X 7cm - [id number] Implanted:Qty: 1 on 11/20/2020 by Wolf Dubose MD at [facility]-[id number] / / Procedures Procedure Name Priority Date/Time [...] Blood Venous blood specimen / Unknown 11/09/2023 us Historical Provider LAB BLOOD ORDERABLES Final R [...] WO IV CONTRAST ordered by URBAN PATEL, [id number] CLINICAL INDICATION: Respiratory illness, nondiagnostic xray TECHNIQUE: [...] suspicious lytic or sclerotic lesion. Procedure Note Otcaviano Romero MD - 11/28/2020 Exam/Procedure: CT CHEST WO IV CONTRAST ordered by URBAN PATEL, [id number] CLINICAL INDICATION: Respiratory illness, nondiagnostic xray TECHNIQUE: [...] on 11/28/2020 2:07 PM Urban Patel MD IM CT PROCEDURES Final Result * Colonoscopy (11/10/2020 [...] MD Proceduralist Tapan Adams, PRIMO Other Boni Marie, RANDY Endo Rn Endocrinology Ciro Castro, RN Endo Nurse Demetrice Andres MD Other Preprocedure [...] of bowel preparation was evaluated using the [place] Bowel Preparation Scale with scores of: right [...] in the descending colon and sigmoid colon Lucila Singh MD GI PROCEDURE ORDERABLES Final Re sult from Last 3 Months or Most Recently Relevant to Health Maintenance Insurance RIDGELY [employer] MEDICARE RIDGELY Advance Directives * Full Code (Latest Code Status on File) Date Activated Date Inactivated Comments 11/16/2020 3:25 PM 12/15/2020 4:25 PM Question Answer Comments Patient has decision-making capacity? Yes * Full Code Date Activated Date Inactivated Comments 10/08/2020 3:39 AM 10/17/2020 6:04 PM Question Answer Comments Patient has decision-making capacity? Yes Care Teams Delphi Programmer Relationship Specialty Start Date End Date Mendoza Johnson DO [address] [place] [address] PCP - General 11/19/23 ySlvia De La Torre, RN CH-TRANSPLANT ADMINISTRATION [address] [place] [address] Surgical Navigator Transplant Surgery 01/11/21 Nyasia Moses [place], [place] [id number] Surgical Navigator Transplant Surgery 01/11/21 Wolf Dubose MD [address] [address] Surgeon Transplant Surgery 01/11/21 Donovan Zaragoza APRN [address] [place] [address] Referring Physician Transplant Surgery 01/11/21
--- OUTSIDE RECORDS SUMMARY | 2024-12-25 09:04 | XMS_ITS | Encounter Summary ---
Author Organization [facility] Address [address] [place] [address] Care Team Providers Care Package Dyeing Machine Operator Name Role Phone Ced Al MD Primary Care Provider + [phone] Sylvia De La Torre RN Unavailable [phone] Nyasia Moses Unavailable [phone] Wolf Dubose MD Unavailable [phone] Donovan Zaragoza APRN Unavailable [phone] Mendoza Johnson DO Primary Care Provider [phone] Encounter Details Date Type Department Care Team (Late st Contact Info) Description 12/17/2020 Lab Requisition [facility] [address] [place] [address] Dot Monge Encounter for general adult medical [...] Description 01/30/2025 9:20 AM EDT Office Visit [place] [id number] [facility] [address] [place] [address] Nisreen Wilkinson, DISH UP PERSON [address] [address] documented as of this encounter Procedures Procedure Name Priority Date/Time Associated Diagnosis Comments CYCLOSPORINE LEVEL Routine 12/17/2020 5: 27 AM EDT Encounter for general adult medical examination without abnormal findings documented in this encounter Results * (ABNORMAL) Cyclosporine (12/17/2020 5:27 AM EDT) Cyclosporine 88(L) 100 - 400 ng/mL 12/17/2020 1:43 PM EDT [facility] Comment: Cyclosporine therapeutic range: Kidney transplant................... 100-200 ng/mL Heart transplant.................... 100-300 ng/mL Liver transplant.................... 100-300 ng/mL Lung;heart/lung transplant.......... 100-350 ng/mL Test performed by LC-MS/MS at the [facility] Laboratory. This test was developed and its performance characteristics determined by [facility]. It has not been cleared or approved by the FDA. The laboratory is regulated under CLIA as qualified to perform high-complexity testing. This test is used for clinical purposes. Blood Venous blood specimen / Unknown 12/17/2020 5:27 AM EDT 12/17/2020 8:54 AM EDT [facility] BLOOD ORDERABLES Final Resul t [facility] [address] [place] [address] documented in this encounter Visit Diagnoses Diagnosis Encounter for general adult medical examination without abnormal findings documented in this encounter Additional Health Concerns Assessment Noted Time A fall risk assessment has been complete d for the patient 11/16/2020 8:39 AM EDT documented as of this encounter Care Teams Package Dyeing Machine Operator Relationship Specialty Start Date End Date Ced Al MD [address] [place] [address] PCP - General 08/20/20 11/18/23 Mendoza Johnson DO [address] [place] [address] PCP - General 11/19/23 Sylvia De La Torre RN [facility] [address] [place] [address] Surgical Navigator Transplant Surgery 01/11/21 [place] [address] Surgical Navigator Transplant Surgery 01/11/21 Wolf Dubose MD [address] [place] [address] Surgeon Transplant Surgery 01/11/21 Donovan Zaragoza APRN [address] [place] [address] Referring Physician Transplant Surgery 01/11/21 documented as of this encounter
--- OUTSIDE RECORDS SUMMARY | 2024-12-25 09:04 | XMS_ITS | Encounter Summary ---
Author Organization [facility] Address [address] [facility] [place] [address] Care Team Providers Care Ham Clerk Name Role Phone Ced Al MD Primary Care Provider + [phone] Sylvia De La Torre RN Unavailable [phone] Nyasia Moses Unavailable [phone] Wolf Dubose MD Unavailable [phone] Donovan Zaragoza APRN Unavailable [phone] Mendoza Johnson DO Primary Care Provider [phone] Encounter Details Date Type Department Care Team (Late st Contact Info) Description 01/04/2022 Lab Requisition [facility] [address] [place] [address] Will Bermudez MD [address] [facility] [address] [place] [address] Liver transplant status (CMS/HCC); Other correction (current) drug therapy Social History Tobacco Use [...] [facility] [address] [place] [address] Nisreen Wilkinson, WET END OPERATOR [address] [address] documented as of this encounter Procedures Procedure Name Priority Date/Time Associated Diagnosis Comments CYCLOSPORINE LEVEL Routine 01/04/2022 10 :04 AM EDT Liver transplant status (CMS/HCC) Other director long term care (current) drug therapy documented in this encounter Results * Cyclosporine (01/04/2022 10:04 AM EDT) Cyclosporine 157 100 - 400 ng/mL 01/05/2022 3:05 PM EDT [facility] Comment: Cyclosporine therapeutic range: Kidney transplant................... 100-200 ng/mL Heart transplant.................... 100-300 ng/mL Liver transplant.................... 100-300 ng/mL Lung;heart/lung transplant.......... 100-350 ng/mL Test performed by LC-MS/MS at the [facility] Laboratory. This test was developed and its performance characteristics determined by [facility]. It has not been cleared or approved by the FDA. The laboratory is regulated under CLIA as qualified to perform high-complexity testing. This test is used for clinical purposes. Blood Venous blood specimen / Unknown 01/04/2022 10:04 AM EDT 01/04/2022 5:11 PM EDT us Will Bermudez MD LAB BLOOD ORDERABLES Final Res ult Performing Organization Address City/State/[facility] Co de Phone Number [facility] [address] [place] [address] documented in this encounter Visit Diagnoses Diagnosis [...] documented as of this encounter Care Teams Ham Clerk Relationship Specialty Start Date End Date Ced Al MD [address] [place] [address] PCP - General 08/20/20 11/18/23 Mendoza Johnson DO [address] [place] [address] PCP - General 11/19/23 Sylvia De La Torre RN [facility] [address] [place] [address] Surgical Navigator Transplant Surgery 01/11/21 [place] [address] Surgical Navigator Transplant Surgery 01/11/21 Wolf Dubose MD [address] [address] Surgeon Transplant Surgery 01/11/21 Donovan Zaragoza APRN [address] [address] Referring Physician Transplant Surgery 01/11/21 documented as of this encounter
--- OUTSIDE RECORDS SUMMARY | 2024-12-25 09:04 | XMS_ITS | Encounter Summary ---
Author Organization [facility] Address [address] [place] [address] Care Team Providers Care Welfare Interviewer Name Role Phone Ced Al MD Primary Care Provider + [phone] Sylvia De La Torre RN Unavailable [phone] Nyasia Moses Unavailable [phone] Wolf Dubose MD Unavailable [phone] Donovan Zaragoza APRN Unavailable [phone] Mendoza Johnson DO Primary Care Provider [phone] Encounter Details Date Type Department Care Team (Late st Contact Info) Description 12/21/2021 Lab Requisition [facility] [address] [place] [address] Will Bermudez MD [address] [facility] [address] [place] [address] Encounter for general adult medical examination without [...] EDT Office Visit [facility] [address] [place] [address] Nisreen Wilkinson, ERIKA [address] [address] documented as of this encounter Procedures Procedure Name Priority Date/Time Associated Diagnosis Comments CYCLOSPORINE LEVEL Routine 12/21/2021 9: 55 AM EDT Encounter for general adult medical examination without abnormal findings documented in this encounter Results * (ABNORMAL) Cyclosporine (12/21/2021 9:55 AM EDT) Cyclosporine 591(HH) 100 - 400 ng/mL 12/22/2021 10:25 AM EDT [facility] Comment: Cyclosporine therapeutic range: Kidney transplant................... 100-200 ng/mL Heart transplant.................... 100-300 ng/mL Liver transplant.................... 100-300 ng/mL Lung;heart/lung transplant.......... 100-350 ng/mL Test performed by LC-MS/MS at the [facility] Laboratory. This test was developed and its performance characteristics determined by [facility]. It has not been cleared or approved by the FDA. The laboratory is regulated under CLIA as qualified to perform high-complexity testing. This test is used for clinical purposes. Blood Venous blood specimen / Unknown 12/21/2021 9:55 AM EDT 12/21/2021 12:43 PM EDT us Will Bermudez MD LAB BLOOD ORDERABLES Final Res ult Performing Organization Address City/State/[facility] Co de Phone Number [facility] [address] [place] [address] documented in this encounter Visit Diagnoses Diagnosis [...] documented as of this encounter Care Teams Welfare Interviewer Relationship Specialty Start Date End Date Ced Al MD [address] [place] [address] PCP - General 08/20/20 11/18/23 Mendoza Johnson DO [address] [place] [address] PCP - General 11/19/23 Sylvia De La Torre, RN [facility]MINISTRATION [address] [place] [address] Surgical Navigator Transplant Surgery 01/11/21 [place] [address] Surgical Navigator Transplant Surgery 01/11/21 Wolf Dubose MD [address] [place] [address] [address] Surgeon Transplant Surgery 01/11/21 Donovan Zaragoza APRN [address] [place] [address] [address] Referring Physician Transplant Surgery 01/11/21 documented as of this encounter
--- OUTSIDE RECORDS SUMMARY | 2024-12-25 09:04 | XMS_ITS | Encounter Summary ---
Author Organization [facility] Address [address] [place] [address] Care Team Providers Care Middle School Tutor Name Role Phone Ced Al MD Primary Care Provider + [phone] Sylvia De La Torre RN Unavailable [phone] Nyasia Moses Unavailable [phone] Wolf Dubose MD Unavailable [phone] Donovan Zaragoza APRN Unavailable [phone] Mendoza Johnson DO Primary Care Provider [phone] Encounter Details Date Type Department Care Team (Late st Contact Info) Description 11/09/2021 Lab Requisition [facility] [address] [place] [address] Karla Kate, SECURITY AND COMPLIANCE PROJECT MANAGER [address] [facility] [address] [place] [address] Liver transplant status (CMS/HCC) Social History Tobacco [...] Description 01/30/2025 9:20 AM EDT Office Visit [facility] [address] [place] [address] Nisreen Wilkinson, SECURITY AND COMPLIANCE PROJECT MANAGER [address] [address] documented as of this encounter Procedures Procedure Name Priority Date/Time Associated Diagnosis Comments CYCLOSPORINE LEVEL Routine 11/09/2021 9: 20 AM EDT Liver transplant status (CMS/HCC) documented in this encounter Results * (ABNORMAL) Cyclosporine (11/09/2021 9:20 AM EDT) Cyclosporine 83(L) 100 - 400 ng/mL 11/10/2021 12:31 PM EDT [facility] Comment: Cyclosporine therapeutic range: Kidney transplant................... 100-200 ng/mL Heart transplant.................... 100-300 ng/mL Liver transplant.................... 100-300 ng/mL Lung;heart/lung transplant.......... 100-350 ng/mL Test performed by LC-MS/MS at the [facility]. This test was developed and its performance characteristics determined by [facility]. It has not been cleared or approved by the FDA. The laboratory is regulated under CLIA as qualified to perform high-complexity testing. This test is used for clinical purposes. Blood Venous blood specimen / Unknown 11/09/2021 9:20 AM EDT 11/09/2021 7:18 PM EDT us Karla Kate SECURITY AND COMPLIANCE PROJECT MANAGER LAB BLOOD ORDERABLES Final R esult [facility] [address] [place] [address] documented in this encounter Visit Diagnoses Diagnosis Liver transplant status (CMS/HCC) documented in this encounter Additional Health Concerns Assessment Noted Time A fall risk assessment has been complete d for the patient 06/08/2021 8:58 AM EST A Body Mass Index follow-up plan has been documented for the patient 05/05/2022 10:19 AM EST documented as of this encounter Care Teams Middle School Tutor Relationship Specialty Start Date End Date Ced Al MD [address] [place] [address] PCP - General 08/20/20 11/18/23 Mendoza Johnson DO [address] [place] [address] PCP - General 11/19/23 Sylvia De La Torre, RN [facility] ADMINISTRATION [address] [place] [address] Surgical Navigator Transplant Surgery 01/11/21 [place] [address] Surgical Navigator Transplant Surgery 01/11/21 Wolf Dubose MD [address] [place] [address] Surgeon Transplant Surgery 01/11/21 Donovan Zaragoza APRN [address] [place] [address] [place] [address] Referring Physician Transplant Surgery 01/11/21 documented as of this encounter
--- OUTSIDE RECORDS SUMMARY | 2024-12-25 09:04 | XMS_ITS | Encounter Summary ---
Author Organization [facility] Address [address] [facility] [place] [address] Care Team Providers Care Physician Industrial Name Role Phone Ced Al MD Primary Care Provider + [phone] Syliva De La Torre RN Unavailable [phone] Nyasia Moses Unavailable [phone] Wolf Dubose MD Unavailable [phone] Donovan Zaragoza APRN Unavailable [phone] Mendoza Johnson DO Primary Care Provider [phone] Encounter Details Date Type Department Care Team (Late st Contact Info) Description 03/08/2022 Lab Requisition [facility] [address] [place] [address] Will Bermudez MD [address] [facility] [address] [place] [address] Liver transplant status (CMS/HCC) Social History Tobacco [...] Description 01/30/2025 9:20 AM EDT Office Visit [facility] [address] [place] [address] Nisreen Wilkinson, BABY DOCTOR [address] [address] documented as of this encounter Procedures Procedure Name Priority Date/Time Associated Diagnosis Comments CYCLOSPORINE LEVEL Routine 03/08/2022 10 :00 AM EST Liver transplant status (CMS/HCC) documented in this encounter Results * Cyclosporine (03/08/2022 10:00 AM EST) Cyclosporine 286 100 - 400 ng/mL 03/09/2022 3:52 PM EST [facility] Comment: Cyclosporine therapeutic range: Kidney transplant................... 100-200 ng/mL Heart transplant.................... 100-300 ng/mL Liver transplant.................... 100-300 ng/mL Lung;heart/lung transplant.......... 100-350 ng/mL Test performed by LC-MS/MS at the [facility]. This test was developed and its performance characteristics determined by [facility]. It has not been cleared or approved by the FDA. The laboratory is regulated under CLIA as qualified to perform high-complexity testing. This test is used for clinical purposes. Blood Venous blood specimen / Unknown 03/08/2022 10:00 AM EST 03/08/2022 12:55 PM EST us Will Bermudez MD LAB BLOOD ORDERABLES Final Res ult [facility] [address] [place] [address] documented in this encounter Visit Diagnoses Diagnosis Liver transplant status (CMS/HCC) documented in this encounter Additional Health Concerns Assessment Noted Time A fall risk assessment has been complete d for the patient 12/09/2021 7:36 AM EDT A Body Mass Index follow-up plan has been documented for the patient 05/05/2022 10:19 AM EST documented as of this encounter Care Teams Physician Industrial Relationship Specialty Start Date End Date Ced Al MD [address] [place] [address] PCP - General 08/20/20 11/18/23 Mendoza Johnson DO [address] [place] [address] PCP - General 11/19/23 Sylvia De La Torre, RN [facility]TR[facility]PLANT ADMINISTRATION [address] [place] [address] Surgical Navigator Transplant Surgery 01/11/21 [place] [address] Surgical Navigator Transplant Surgery 01/11/21 Wolf Dubose MD [address] [address] Surgeon Transplant Surgery 01/11/21 Donovan Zaragoza APRN [address] [address] Referring Physician Transplant Surgery 01/11/21 documented as of this encounter
--- OUTSIDE RECORDS SUMMARY | 2024-12-25 09:04 | XMS_ITS | Encounter Summary ---
Author Organization [facility] Address [address] [place] [address] Care Team Providers Care Button Maker And Installer Name Role Phone Ced Al MD Primary Care Provider + [phone] Sylvia De La Torre RN Unavailable [phone] Nyasia Moses Unavailable [phone] Wolf Dubose MD Unavailable [phone] Donovan Zaragoza APRN Unavailable [phone] Mendoza Johnson DO Primary Care Provider [phone] Encounter Details Date Type Department Care Team (Late st Contact Info) Description 12/27/2020 Lab Requisition [facility] [address] [place] [address] Dot Monge Encounter for general adult medical [...] Description 01/30/2025 9:20 AM EDT Office Visit [facility] [address] [place] [address] Nisreen Wilkinson, GEOLOGY FACULTY MEMBER [address] [address] documented as of this encounter Procedures Procedure Name Priority Date/Time Associated Diagnosis Comments CYCLOSPORINE LEVEL Routine 12/27/2020 4: 46 AM EDT Encounter for general adult medical examination without abnormal findings documented in this encounter Results * (ABNORMAL) Cyclosporine (12/27/2020 4:46 AM EDT) Cyclosporine 70(L) 100 - 400 ng/mL 12/28/2020 8:10 AM EDT [facility] Comment: Cyclosporine therapeutic range: Kidney transplant................... 100-200 ng/mL Heart transplant.................... 100-300 ng/mL Liver transplant.................... 100-300 ng/mL Lung;heart/lung transplant.......... 100-350 ng/mL Test performed by LC-MS/MS at the [facility]. This test was developed and its performance characteristics determined by [email or web address]. It has not been cleared or approved by the FDA. The laboratory is regulated under CLIA as qualified to perform high-complexity testing. This test is used for clinical purposes. Blood Venous blood specimen / Unknown 12/27/2020 4:46 AM EDT 12/27/2020 11:00 AM EDT us [facility] BLOOD ORDERABLES Final Resul t [facility] [address] [place] [address] documented in this encounter Visit Diagnoses Diagnosis Encounter for general adult medical examination without abnormal findings documented in this encounter Additional Health Concerns Assessment Noted Time A fall risk assessment has been complete d for the patient 11/16/2020 8:39 AM EDT documented as of this encounter Care Teams Button Maker And Installer Relationship Specialty Start Date End Date Ced Al MD [address] [place] [address] PCP - General 08/20/20 11/18/23 Mendoza Johnson DO [address] [place] [address] PCP - General 11/19/23 White, Pendleton E, RN [facility]TR[facility]PLANT ADMINISTRATION [address] [place] [address] Surgical Navigator Transplant Surgery 01/11/21 Nyasia Moses [place] [id number] Surgical Navigator Transplant Surgery 01/11/21 Wolf Dubose MD [address] [place] [address] Surgeon Transplant Surgery 01/11/21 Donovan Zaragoza APRN [address] [place] [address] Referring Physician Transplant Surgery 01/11/21 documented as of this encounter
--- OUTSIDE RECORDS SUMMARY | 2024-12-25 09:04 | XMS_ITS | Encounter Summary ---
Author Organization [facility] Address [address] [place] [address] Care Team Providers Care Education Intern Name Role Phone Ced Al MD Primary Care Provider + [phone] Sylvia De La Torre RN Unavailable [phone] Nyasia Moses Unavailable [phone] Wolf Dubose MD Unavailable [phone] Donovan Zaragoza APRN Unavailable [phone] Mendoza Johnson DO Primary Care Provider [phone] Encounter Details Date Type Department Care Team (Late st Contact Info) Description 06/14/2022 Lab Requisition [facility] [address] [place] [address] Will Bermudez MD [address] [facility] [address] [place] [address] Liver transplant status (CMS/HCC) Social History Tobacco [...] Description 01/30/2025 9:20 AM EDT Office Visit [facility] [address] [place] [address] Nisreen Wilkinson, EMERGENCY NURSE [address] [address] documented as of this encounter Procedures Procedure Name Priority Date/Time Associated Diagnosis Comments CYCLOSPORINE LEVEL Routine 06/14/2022 9: 36 AM EST Liver transplant status (CMS/HCC) documented in this encounter Results * Cyclosporine (06/14/2022 9:36 AM EST) Cyclosporine 119 100 - 400 ng/mL 06/15/2022 1:[address] [facility] Comment: Cyclosporine therapeutic range: Kidney transplant................... 100-200 ng/mL Heart transplant.................... 100-300 ng/mL Liver transplant.................... 100-300 ng/mL Lung;heart/lung transplant.......... 100-350 ng/mL Test performed by LC-MS/MS at the [facility]. This test was developed and its performance characteristics determined by [facility]. It has not been cleared or approved by the FDA. The laboratory is regulated under CLIA as qualified to perform high-complexity testing. This test is used for clinical purposes. Blood Venous blood specimen / Unknown 06/14/2022 9:36 AM EST 06/14/2022 1:05 PM EST us Will Bermudez MD LAB BLOOD ORDERABLES Final Res ult [facility] [address] [place] [address] documented in this encounter Visit Diagnoses Diagnosis Liver transplant status (CMS/HCC) documented in this encounter Additional Health Concerns Assessment Noted Time A fall risk assessment has been complete d for the patient 12/09/2021 7:36 AM EDT A Body Mass Index follow-up plan has been documented for the patient 05/05/2022 10:19 AM EST documented as of this encounter Care Teams Education Intern Relationship Specialty Start Date End Date Ced Al MD [address] [place] [address] PCP - General 08/20/20 11/18/23 Mendoza Johnson DO [address] [place] [address] PCP - General 11/19/23 White, Chalfont E, RN CH-TRANSPLANT ADMINISTRATION [address] [place] [address] Surgical Navigator Transplant Surgery 01/11/21 [place] [address] Surgical Navigator Transplant Surgery 01/11/21 Wolf Dubose MD [address] [place] [address] Surgeon Transplant Surgery 01/11/21 Donovan Zaragoza APRN [address] [place] [address] Referring Physician Transplant Surgery 01/11/21 documented as of this encounter
--- OUTSIDE RECORDS SUMMARY | 2024-12-25 09:04 | XMS_ITS | Encounter Summary ---
Author Organization [facility] Address [address] [place] [address] Care Team Providers Care Metal Grader Name Role Phone Ced Al MD Primary Care Provider + [phone] Sylvia De La Torre RN Unavailable [phone] Nyasia Moses Unavailable [phone] Wolf Dubose MD Unavailable [phone] Donovan Zaragoza APRN Unavailable [phone] Mendoza Johnson DO Primary Care Provider [phone] Encounter Details Date Type Department Care Team (Late st Contact Info) Description 11/16/2021 Lab Requisition [facility] [address] [place] [address] Will Bermudez MD [address] [facility] [address] [place] [address] Liver transplant status (CMS/HCC); Other alf (current) drug therapy Social History Tobacco Use [...] Description 01/30/2025 9:20 AM EDT Office Visit [facility] [address] [place] [address] Nisreen Wilkinson, AIRCRAFT MECHANIC STRUCTURES [address] [address] documented as of this encounter Procedures Procedure Name Priority Date/Time Associated Diagnosis Comments CYCLOSPORINE LEVEL Routine 11/16/2021 9: 40 AM EDT Liver transplant status (CMS/HCC) Other alf (current) drug therapy documented in this encounter Results * Cyclosporine (11/16/2021 9:40 AM EDT) Cyclosporine 118 100 - 400 ng/mL 11/17/2021 9:[address] [facility] Comment: Cyclosporine therapeutic range: Kidney transplant................... 100-200 ng/mL Heart transplant.................... 100-300 ng/mL Liver transplant.................... 100-300 ng/mL Lung;heart/lung transplant.......... 100-350 ng/mL Test performed by LC-MS/MS at the [facility]. This test was developed and its performance characteristics determined by [facility]. It has not been cleared or approved by the FDA. The laboratory is regulated under CLIA as qualified to perform high-complexity testing. This test is used for clinical purposes. Blood Venous blood specimen / Unknown 11/16/2021 9:40 AM EDT 11/16/2021 3:08 PM EDT us Will Bermudez MD LAB BLOOD ORDERABLES Final Res ult [facility] [address] [place] [id number] documented in this encounter Visit Diagnoses Diagnosis Liver transplant status (CMS/HCC) Other alf (current) drug therapy documented in this encounter Additional Health Concerns Assessment Noted Time A fall risk assessment has been complete d for the patient 06/08/2021 8:58 AM EST A Body Mass Index follow-up plan has been documented for the patient 05/05/2022 10:19 AM EST documented as of this encounter Care Teams Metal Grader Relationship Specialty Start Date End Date Ced Al MD [address] [place] [address] PCP - General 08/20/20 11/18/23 Mednoza Johnson DO [address] [place] [address] PCP - General 11/19/23 Sylvia De La Torre, RN [facility] [address] [place] [address] Surgical Navigator Transplant Surgery 01/11/21 [address] [place] [address] Surgical Navigator Transplant Surgery 01/11/21 Wolf Dubose MD [address] [address] Surgeon Transplant Surgery 01/11/21 Donovan Zaragoza APRN [address] [address] Referring Physician Transplant Surgery 01/11/21 documented as of this encounter
--- OUTSIDE RECORDS SUMMARY | 2024-12-25 09:04 | XMS_ITS | Encounter Summary ---
Author Organization [facility] Address [address] [place] [address] Care Team Providers Care Digitizer Operator Name Role Phone Ced Al MD Primary Care Provider + [phone] Sylvia De La Torre RN Unavailable [phone] Nyasia Moses Unavailable [phone] Wolf Dubose MD Unavailable [phone] Donovan Zaragoza APRN Unavailable [phone] Mendoza Johnson DO Primary Care Provider [phone] Encounter Details Date Type Department Care Team (Late st Contact Info) Description 12/06/2022 Orders Only External Location [address] [place] [address] Ced Al MD [address] [place] [address] Social History Tobacco Use Types [...] Description 01/30/2025 9:20 AM EDT Office Visit [facility] [address] [place] [address] Nisreen Wilkinson, TYRE BUILDER [address] [address] documented as of this encounter [...] documented as of this encounter Care Teams Digitizer Operator Relationship Specialty Start Date End Date Ced Al MD [address] [place] [address] PCP - General 08/20/20 11/18/23 Mendoza Johnson DO [address] [place] [address] PCP - General 11/19/23 Sylvia De La Torre, FREDA [facility]MINISTRATION [address] [place] [address] Surgical Navigator Transplant Surgery 01/11/21 Ny[address] [place], [place] [id number] Surgical Navigator Transplant Surgery 01/11/21 Wolf Dubose MD [address] [place] [address] Surgeon Transplant Surgery 01/11/21 Donovan Zaragoza APRN [address] [place] [address] Referring Physician Transplant Surgery 01/11/21 documented as of this encounter
--- OUTSIDE RECORDS SUMMARY | 2024-12-25 09:04 | XMS_ITS | Encounter Summary ---
Author Organization [facility] Address [address] [place] [address] Care Team Providers Care Sandblaster Glass Name Role Phone Ced Al MD Primary Care Provider + [phone] Sylvia De La Torre RN Unavailable [phone] Nyasia Moses Unavailable [phone] Wolf Dubose MD Unavailable [phone] Donovan Zaragoza APRN Unavailable [phone] Mendoza Johnson DO Primary Care Provider [phone] Encounter Details Date Type Department Care Team (Late st Contact Info) Description 03/22/2022 Lab Requisition [facility] [address] [place] [address] Karla Kate, PUMP MACHINE OPERATOR [address] [facility] [address] [place] [address] Liver transplant status (CMS/HCC); Other assisted (current) drug therapy; Chronic viral hepatitis C [...] Description 01/30/2025 9:20 AM EDT Office Visit [facility] [address] [place] [address] Nisreen Wilkinson, ERIKA [address] [address] documented as of this encounter Procedures Procedure Name Priority Date/Time Associated Diagnosis Comments CYCLOSPORINE LEVEL Routine 03/22/2022 10 :10 AM EST Liver transplant status (CMS/HCC) Other assisted (current) drug therapy Chronic viral hepatitis C (CMS/HCC) documented in this encounter Results * Cyclosporine (03/22/2022 10:10 AM EST) Cyclosporine 120 100 - 400 ng/mL 03/23/2022 12:26 PM EST [facility] Comment: Cyclosporine therapeutic range: Kidney transplant................... 100-200 ng/mL Heart transplant.................... 100-300 ng/mL Liver transplant.................... 100-300 ng/mL Lung;heart/lung transplant.......... 100-350 ng/mL Test performed by LC-MS/MS at the [facility]. This test was developed and its performance characteristics determined by [facility]. It has not been cleared or approved by the FDA. The laboratory is regulated under CLIA as qualified to perform high-complexity testing. This test is used for clinical purposes. Blood Venous blood specimen / Unknown 03/22/2022 10:10 AM EST 03/22/2022 2:32 PM EST us Karla Kate APRN LAB BLOOD ORDERABLES Final R esult [facility] [address] [place] [address] documented in this encounter Visit Diagnoses Diagnosis Liver transplant status (CMS/HCC) 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 Chronic viral hepatitis C [...] documented as of this encounter Care Teams Sandblaster Glass Relationship Specialty Start Date End Date Ced Al MD [address] [place] [address] PCP - General 08/20/20 11/18/23 Mendoza Johnson DO [address] [place] [address] PCP - General 11/19/23 Sylvia De La Torre, RN [facility]PL[facility]MINISTRATION [address] [place] [address] Surgical Navigator Transplant Surgery 01/11/21 [place] [address] Surgical Navigator Transplant Surgery 01/11/21 Wolf Dubose MD [address] [place] [address] Surgeon Transplant Surgery 01/11/21 Donovan Zaragoza APRN [address] [place] [address] Referring Physician Transplant Surgery 01/11/21 documented as of this encounter
--- OUTSIDE RECORDS SUMMARY | 2024-12-25 09:04 | XMS_ITS | Encounter Summary ---
Author Organization [facility] Address [address] [place] [address] Care Team Providers Care Strategic Client Executive Name Role Phone Ced Al MD Primary Care Provider + [phone] Sylvia De La Torre RN Unavailable [phone] Nyasia Moses Unavailable [phone] Wolf Dubose MD Unavailable [phone] Donovan Zaragoza APRN Unavailable [phone] Mendoza Johnson DO Primary Care Provider [phone] Encounter Details Date Type Department Care Team (Late st Contact Info) Description 05/10/2022 Lab Requisition [facility] [address] [place] [address] Karla Kate, ANIMAL SITTER [address] [facility] [address] [place] [address] Liver transplant status (CMS/HCC); Other long-term (current) drug therapy Social History Tobacco Use [...] Description 01/30/2025 9:20 AM EDT Office Visit [facility] [address] [place] [address] Nisreen Wilkinson, ANIMAL SITTER [address] [address] documented as of this encounter Procedures Procedure Name Priority Date/Time Associated Diagnosis Comments CYCLOSPORINE LEVEL Routine 05/10/2022 10 :37 AM EST Liver transplant status (CMS/HCC) Other salvage determiner (current) drug therapy documented in this encounter Results * Cyclosporine (05/10/2022 10:37 AM EST) Cyclosporine 125 100 - 400 ng/mL 05/11/2022 1:39 PM EST [facility] Comment: Cyclosporine therapeutic range: Kidney transplant................... 100-200 ng/mL Heart transplant.................... 100-300 ng/mL Liver transplant.................... 100-300 ng/mL Lung;heart/lung transplant.......... 100-350 ng/mL Test performed by LC-MS/MS at the [facility]. This test was developed and its performance characteristics determined by [facility]. It has not been cleared or approved by the FDA. The laboratory is regulated under CLIA as qualified to perform high-complexity testing. This test is used for clinical purposes. Blood Venous blood specimen / Unknown 05/10/2022 10:37 AM EST 05/10/2022 3:14 PM EST us Karla Kate APRN LAB BLOOD ORDERABLES Final R esult [facility] [address] [place] [address] documented in this encounter Visit Diagnoses Diagnosis Liver transplant status (CMS/HCC) Other long-term (current) drug therapy documented in this encounter Additional Health Concerns Assessment Noted Time A fall risk assessment has been complete d for the patient 12/09/2021 7:36 AM EDT A Body Mass Index follow-up plan has been documented for the patient 05/05/2022 10:19 AM EST documented as of this encounter Care Teams Strategic Client Executive Relationship Specialty Start Date End Date Ced Al MD [address] [place] [address] PCP - General 08/20/20 11/18/23 Mendoza Johnson DO [address] [place] [address] PCP - General 11/19/23 Sylvia De La Torre, RN [facility]MINISTRATION [address] [place] [address] Surgical Navigator Transplant Surgery 01/11/21 [place] [address] Surgical Navigator Transplant Surgery 01/11/21 Wolf Dubose MD [address] [address] Surgeon Transplant Surgery 01/11/21 Donovan Zaragoza APRN [address] [place] [address] Referring Physician Transplant Surgery 01/11/21 documented as of this encounter
--- OUTSIDE RECORDS SUMMARY | 2024-12-25 09:04 | XMS_ITS | Encounter Summary ---
Author Organization [facility] Address [address] [place] [address] Care Team Providers Care Security Assistant Name Role Phone Ced Al MD Primary Care Provider + [phone] Sylvia De La Torre RN Unavailable [phone] Nyasia Moses Unavailable [phone] Wolf Dubose MD Unavailable [phone] Donovan Zaragoza APRN Unavailable [phone] Mendoza Johnson DO Primary Care Provider [phone] Encounter Details Date Type Department Care Team (Late st Contact Info) Description 07/08/2021 Lab Requisition [facility] [address] [place] [address] Will Bermudez MD [address] [facility] [address] [place] [address] Liver transplant status (CMS/HCC) Social History Tobacco [...] Description 01/30/2025 9:20 AM EDT Office Visit [facility] [address] [place] [address] Nisreen Wilkinson, ERIKA [address] [address] documented as of this encounter Procedures Procedure Name Priority Date/Time Associated Diagnosis Comments CYCLOSPORINE LEVEL Routine 07/08/2021 1 :35 PM EDT Liver transplant status (CMS/HCC) documented in this encounter Results * (ABNORMAL) Cyclosporine (07/08/2021 1:35 PM EDT) Cyclosporine 87(L) 100 - 400 ng/mL 07/09/2021 12:59 PM EDT [facility] Comment: Cyclosporine therapeutic range: Kidney transplant................... 100-200 ng/mL Heart transplant.................... 100-300 ng/mL Liver transplant.................... 100-300 ng/mL Lung;heart/lung transplant.......... 100-350 ng/mL Test performed by LC-MS/MS at the [facility]. This test was developed and its performance characteristics determined by [facility]. It has not been cleared or approved by the FDA. The laboratory is regulated under CLIA as qualified to perform high-complexity testing. This test is used for clinical purposes. Blood Venous blood specimen / Unknown 07/08/2021 1:35 PM EDT 07/08/2021 4:54 PM EDT us Will Bermudez MD LAB BLOOD ORDERABLES Final Res ult [facility] [address] [place] [address] documented in this encounter Visit Diagnoses Diagnosis Liver transplant status (CMS/HCC) documented in this encounter Additional Health Concerns Assessment Noted Time A fall risk assessment has been complete d for the patient 06/08/2021 8:58 AM EST A Body Mass Index follow-up plan has been documented for the patient 05/05/2022 10:19 AM EST documented as of this encounter Care Teams Security Assistant Relationship Specialty Start Date End Date Ced Al MD [address] [place] [address] PCP - General 08/20/20 11/18/23 Mendoza Johnson DO [address] [place] [address] PCP - General 11/19/23 Sylvia De La Torre, RN [facility]TRANSPLANT ADMINISTRATION [address] [place] [address] Surgical Navigator Transplant Surgery 01/11/21 [place] [address] Surgical Navigator Transplant Surgery 01/11/21 Wolf Dubose MD [address] [address] Surgeon Transplant Surgery 01/11/21 Donovan Zaragoza APRN [address] [place] [address] Referring Physician Transplant Surgery 01/11/21 documented as of this encounter
--- OUTSIDE RECORDS SUMMARY | 2024-12-25 09:04 | XMS_ITS | Encounter Summary ---
Author Organization [facility] Address [address] [place] [address] Care Team Providers Care Air Analysis Technician Name Role Phone Sylvia De La Torre RN Unavailable [phone] Nyasia Moses Unavailable [phone] Wolf Dubose MD Unavailable [phone] Donovan Zaragoza APRN Unavailable [phone] Mendoza Johnson DO Primary Care Provider [phone] Encounter Details Date Type Department Care Team (Late st Contact Info) Description 12/18/2024 Orders Only [facility] [address] [place] [address] Josephine Parikh Acute kidney injury (CMS/HCC) (Primary Dx); Vitamin D insufficiency Social History Tobacco Use Types Packs/Day Years [...] Description 01/30/2025 9:20 AM EDT Office Visit [facility] [address] [place] [address] Nisreen Wilkinson, DEMENTIA PROGRAM DIRECTOR [address] [address] Scheduled Orders Name Type Priority Associated Diagnoses Orde r Schedule Renal Function Panel, Plasma Lab Routine Acute kidney injury ([facility]/HCC) Expected: 12/18/2024 (Approximate), Expires: 06/17/2026 CBC and Differential Lab Routine Acute kidney injury ([facility]) Expected: 12/18/2024 (Approximate), Expires: 06/17/2026 Creatinine, Random, Urine Lab Routine Acute kidney injury ([facility]/HCC) Expected: 12/18/2024 (Approximate), Expires: 06/17/2026 Protein, Random, Urine with Creatinine Lab Routine Acute kidney injury ([facility]) Expected: 12/18/2024 (Approximate), Expires: 06/17/2026 Urinalysis with reflex microscopic (Culture NOT Included) Lab Routine Acute kidney injury ([facility]) Expected: 12/18/2024 (Approximate), Expires: 06/17/2026 PTH Intact Total Lab Routine Acute kidney injury ([facility]) Vitamin D insufficiency Expected: 12/18/2024 (Approximate), Expires: 06/17/2026 Vitamin D 25 Hydroxy Lab Routine Acute kidney injury ([facility]) Vitamin D insufficiency Expected: 12/18/2024 (Approximate), Expires: 06/17/2026 Albumin-creatinine ratio, urine, random Lab Routine Acute kidney injury ([facility]) Expected: 12/18/2024 (Approximate), Expires: 06/17/2026 Hemoglobin A1c Lab Routine Acute kidney injury ([facility]) Expected: 12/18/2024 (Approximate), Expires: 06/21/2026 documented as of this encounter Visit Diagnoses Diagnosis Acute kidney injury ([facility])- Primary Vitamin D insufficiency documented in this encounter Additional Health Concerns Assessment Noted Time A fall risk assessment has been complete d for the patient 05/02/2024 2:30 PM EST A Body Mass Index follow-up plan has been documented for the patient 05/02/2024 2:56 PM EST documented as of this encounter Care Teams Air Analysis Technician Relationship Specialty Start Date End Date Mendoza Johnson DO [address] [place] [address] PCP - General 11/19/23 Sylvia De La Torre RN [facility]TR[facility]PLANT ADMINISTRATION [address] [place] [address] Surgical Navigator Transplant Surgery 01/11/21 [place] [address] Surgical Navigator Transplant Surgery 01/11/21 Wolf Dubose MD [address] [place] [address] Surgeon Transplant Surgery 01/11/21 Donovan Zaragoza APRN [address] [place] [address] Referring Physician Transplant Surgery 01/11/21 documented as of this encounter
--- OUTSIDE RECORDS SUMMARY | 2024-12-25 09:04 | XMS_ITS | Encounter Summary ---
Author Organization [facility] Address [address] [place] [address] Care Team Providers Care Data Integrity Consultant Name Role Phone Ced Al MD Primary Care Provider + [phone] Sylvia De La Torre RN Unavailable [phone] Nyasia Moses Unavailable [phone] Wolf Dubose MD Unavailable [phone] Donovan Zaragoza APRN Unavailable [phone] Mendoza Johnson DO Primary Care Provider [phone] Encounter Details Date Type Department Care Team (Late st Contact Info) Description 12/16/2020 Lab Requisition [facility] [address] [place] [address] Dot Monge Encounter for general adult medical [...] Description 01/30/2025 9:20 AM EDT Office Visit [facility] [address] [place] [address] Nisreen Wilkinson, ACOUSTICAL CARPENTER [address] [address] documented as of this encounter Procedures Procedure Name Priority Date/Time Associated Diagnosis Comments CYCLOSPORINE LEVEL Routine 12/16/2020 7: 16 AM EDT Encounter for general adult medical examination without abnormal findings documented in this encounter Results * (ABNORMAL) Cyclosporine (12/16/2020 7:16 AM EDT) Cyclosporine 84(L) 100 - 400 ng/mL 12/16/2020 1:40 PM EDT [facility] Comment: Cyclosporine therapeutic range: Kidney transplant................... 100-200 ng/mL Heart transplant.................... 100-300 ng/mL Liver transplant.................... 100-300 ng/mL Lung;heart/lung transplant.......... 100-350 ng/mL Test performed by LC-MS/MS at the [facility]. This test was developed and its performance characteristics determined by [facility]. It has not been cleared or approved by the FDA. The laboratory is regulated under CLIA as qualified to perform high-complexity testing. This test is used for clinical purposes. Blood Venous blood specimen / Unknown 12/16/2020 7:16 AM EDT 12/16/2020 10:18 AM EDT [facility] BLOOD ORDERABLES Final Resul t [facility] [address] [place] [address] documented in this encounter Visit Diagnoses Diagnosis Encounter for general adult medical examination without abnormal findings documented in this encounter Additional Health Concerns Assessment Noted Time A fall risk assessment has been complete d for the patient 11/16/2020 8:39 AM EDT documented as of this encounter Care Teams Data Integrity Consultant Relationship Specialty Start Date End Date Ced Al MD [address] [place] [address] PCP - General 08/20/20 11/18/23 Mendoza Johnson DO [address] [place] [address] PCP - General 11/19/23 Sylvia De La Torre RN CH-TRANSPLANT ADMINISTRATION [address] [place] [address] Surgical Navigator Transplant Surgery 01/11/21 [place] [address] Surgical Navigator Transplant Surgery 01/11/21 Wolf Dubose MD [address] [address] Surgeon Transplant Surgery 01/11/21 Donovan Zaragoza APRN [address] [address] Referring Physician Transplant Surgery 01/11/21 documented as of this encounter
--- OUTSIDE RECORDS SUMMARY | 2024-12-25 09:04 | XMS_ITS | Encounter Summary ---
Author Organization [facility] Address [address] [place] [address] Care Team Providers Care Water Technician Name Role Phone Ced Al MD Primary Care Provider + [phone] Sylvia De La Torre RN Unavailable [phone] Nyasia Moses Unavailable [phone] Wolf Dubose MD Unavailable [phone] Donovan Zaragoza APRN Unavailable [phone] Mendoza Johnson DO Primary Care Provider [phone] Encounter Details Date Type Department Care Team (Late st Contact Info) Description 11/30/2021 Lab Requisition [facility] [address] [place] [address] Will Bermudez MD [address] [facility] [address] [place] [address] Liver transplant status (CMS/HCC); Other mcc (current) drug therapy Social History Tobacco Use [...] Author No 10/17/2020 3:33 PM EDT Carla Mandjuano RN * Are you blind or do [...] Description 01/30/2025 9:20 AM EDT Office Visit [facility] [address] [place], [place] [address] Nisreen Wilkinson, ENERGY CONSERVATION TECHNICIAN [address] [address] documented as of this encounter Procedures Procedure Name Priority Date/Time Associated Diagnosis Comments CYCLOSPORINE LEVEL Routine 11/30/2021 9: 52 AM EDT Liver transplant status (CMS/HCC) Other mcc (current) drug therapy documented in this encounter Results * (ABNORMAL) Cyclosporine (11/30/2021 9:52 AM EDT) Cyclosporine 63(L) 100 - 400 ng/mL 12/01/2021 3:14 PM EDT [facility] Comment: Cyclosporine therapeutic range: Kidney transplant................... 100-200 ng/mL Heart transplant.................... 100-300 ng/mL Liver transplant.................... 100-300 ng/mL Lung;heart/lung transplant.......... 100-350 ng/mL Test performed by LC-MS/MS at the [facility]. This test was developed and its performance characteristics determined by [facility]. It has not been cleared or approved by the FDA. The laboratory is regulated under CLIA as qualified to perform high-complexity testing. This test is used for clinical purposes. Blood Venous blood specimen / Unknown 11/30/2021 9:52 AM EDT 11/30/2021 1:28 PM EDT us Will Bermudez MD LAB BLOOD ORDERABLES Final Res ult [facility] [address] [place] [address] documented in this encounter Visit Diagnoses Diagnosis [...] documented as of this encounter Care Teams Water Technician Relationship Specialty Start Date End Date Ced Al MD [address] [place] [address] PCP - General 08/20/20 11/18/23 Mendoza Johnson DO [address] [place] [address] PCP - General 11/19/23 Sylvia De La Torre, RN CH-TRANSPLANT ADMINISTRATION [address] [place] [address] Surgical Navigator Transplant Surgery 01/11/21 [place] [address] Surgical Navigator Transplant Surgery 01/11/21 Wolf Dubose MD [address] [place] [address] Surgeon Transplant Surgery 01/11/21 Donovan Zaragoza APRN [address] [place] [address] Referring Physician Transplant Surgery 01/11/21 documented as of this encounter
--- OUTSIDE RECORDS SUMMARY | 2024-12-25 09:04 | XMS_ITS | Encounter Summary ---
Author Organization [facility] Address [address] [place] [address] Care Team Providers Care Dressmaker Helper Name Role Phone Ced Al MD Primary Care Provider + [phone] Sylvia De La Torre RN Unavailable [phone] Nyasia Moses Unavailable [phone] Wolf Dubose MD Unavailable [phone] Donovan Zaragoza APRN Unavailable [phone] Mendoza Johnson DO Primary Care Provider [phone] Encounter Details Date Type Department Care Team (Late st Contact Info) Description 10/26/2021 Lab Requisition [facility] [address] [place] [address] Will Bermudez MD [address] [facility] [address] [place] [address] Encounter for general adult medical examination without [...] Description 01/30/2025 9:20 AM EDT Office Visit [facility] [address] [place] [address] Nisreen Wilkinson, FULLER BRUSH WORKER [address] [address] documented as of this encounter Procedures Procedure Name Priority Date/Time Associated Diagnosis Comments CYCLOSPORINE LEVEL Routine 10/26/2021 10 :00 AM EDT Encounter for general adult medical examination without abnormal findings documented in this encounter Results * Cyclosporine (10/26/2021 10:00 AM EDT) Cyclosporine 158 100 - 400 ng/mL 10/27/2021 1:37 PM EDT [facility] Comment: Cyclosporine therapeutic range: Kidney transplant................... 100-200 ng/mL Heart transplant.................... 100-300 ng/mL Liver transplant.................... 100-300 ng/mL Lung;heart/lung transplant.......... 100-350 ng/mL Test performed by LC-MS/MS at the [facility]. This test was developed and its performance characteristics determined by [facility]. It has not been cleared or approved by the FDA. The laboratory is regulated under CLIA as qualified to perform high-complexity testing. This test is used for clinical purposes. Blood Venous blood specimen / Unknown 10/26/2021 10:00 AM EDT 10/26/2021 3:13 PM EDT us Will Bermudez MD LAB BLOOD ORDERABLES Final Res ult [facility] [address] [place] [address] documented in this encounter Visit Diagnoses Diagnosis [...] documented as of this encounter Care Teams Dressmaker Helper Relationship Specialty Start Date End Date Ced Al MD [address] [place] [address] PCP - General 08/20/20 11/18/23 Mendoza Johnson DO [address] [place] [address] PCP - General 11/19/23 Sylvia De La Torre, RN CH-TRANSPLANT ADMINISTRATION 800 [place] [address] Surgical Navigator Transplant Surgery 01/11/21 [place] [address] Surgical Navigator Transplant Surgery 01/11/21 Wolf Dubose MD [address] [address] Surgeon Transplant Surgery 01/11/21 Donovan Zaragoza APRN [address] [place] [address] Referring Physician Transplant Surgery 01/11/21 documented as of this encounter
--- OUTSIDE RECORDS SUMMARY | 2024-12-25 09:04 | XMS_ITS | Encounter Summary ---
Author Organization [facility] Address [address] [place] [address] Care Team Providers Care Poultry Farmer Name Role Phone Ced Al MD Primary Care Provider + [phone] Sylvia De La Torre RN Unavailable [phone] Nyasia Moses Unavailable [phone] Wolf Dubose MD Unavailable [phone] Donovan Zaragoza APRN Unavailable [phone] Mendoza Johnson DO Primary Care Provider [phone] Encounter Details Date Type Department Care Team (Late st Contact Info) Description 04/22/2022 Orders Only External Location [address] [place] [address] Simeon Saldivar MD [address] [...] Description 01/30/2025 9:20 AM EDT Office Visit [place] [id number] [facility] [address] [place] [address] Nisreen Wilkinson, ERIKA [address] [address] documented as of this encounter Procedures Procedure Name Priority Date/Time Associated Diagnosis Comments CT OUTSIDE IMAGES 04/22/2022 2:12 PM EST documented in this encounter Results * CT OUTSIDE IMAGES (04/22/2022 2:12 PM EST) Anatomical Region Laterality Modality Computed Tomogra phy 04/22/2022 2:12 PM EST Simeon Saldivar MD IMG CT PROCEDURES Final Result documented in this encounter Visit Diagnoses Not on filedocumented in this encounter Additional Health Concerns Assessment Noted Time A fall risk assessment has been complete d for the patient 12/09/2021 7:36 AM EDT A Body Mass Index follow-up plan has been documented for the patient 05/05/2022 10:19 AM EST documented as of this encounter Care Teams Poultry Farmer Relationship Specialty Start Date End Date Ced Al MD [address] [place] [address] PCP - General 08/20/20 11/18/23 Mendoza Johnson DO [address] [place] [address] PCP - General 11/19/23 Sylvia De La Torre RN CH-TRANSPLANT ADMINISTRATION [address] [place], [place] [id number] Surgical Navigator Transplant Surgery 01/11/21 Nyasia Moses [place], [place] [id number] Surgical Navigator Transplant Surgery 01/11/21 Wolf Dubose MD [address] [address] Surgeon Transplant Surgery 01/11/21 Donovan Zaragoza APRN [address] [place] [address] Referring Physician Transplant Surgery 01/11/21 documented as of this encounter
--- OUTSIDE RECORDS SUMMARY | 2024-12-25 09:05 | XMS_ITS | Encounter Summary ---
Author Organization [facility] Address [address] [facility] [place] [address] Care Team Providers Care Line Ordering Clinician Name Role Phone Ced Al MD Primary Care Provider + [phone] Sylvia De La Torre RN Unavailable [phone] Nyasia Moses Unavailable [phone] Wolf Dubose MD Unavailable [phone] Donovan Zaragoza APRN Unavailable [phone] Mendoza Johnson DO Primary Care Provider [phone] Encounter Details Date Type Department Care Team (Late st Contact Info) Description 09/21/2021 Lab Requisition [facility] [address] [place] [address] Will Bermudez MD [address] [facility] [address] [place] [address] Liver transplant status (CMS/HCC); Other correction (current) [...] Description 01/30/2025 9:20 AM EDT [facility] Visit [facility] [address] [place] [address] Nisreen Wilkinson, SURVEILLANCE SENSOR OFFICER [address] [address] documented as of this encounter Procedures Procedure Name Priority Date/Time Associated Diagnosis Comments CYCLOSPORINE LEVEL Routine 09/21/2021 10 :45 AM EDT Liver transplant status (CMS/HCC) Other correction (current) drug therapy documented in this encounter Results * Cyclosporine (09/21/2021 10:45 AM EDT) Cyclosporine 280 100 - 400 ng/mL 09/22/2021 1:01 PM EDT [facility] Comment: Cyclosporine therapeutic range: Kidney transplant................... 100-200 ng/mL Heart transplant.................... 100-300 ng/mL Liver transplant.................... 100-300 ng/mL Lung;heart/lung transplant.......... 100-350 ng/mL Test performed by LC-MS/MS at the [facility]. This test was developed and its performance characteristics determined by [facility]. It has not been cleared or approved by the FDA. The laboratory is regulated under CLIA as qualified to perform high-complexity testing. This test is used for clinical purposes. Blood Venous blood specimen / Unknown 09/21/2021 10:45 AM EDT 09/21/2021 3:33 PM EDT us Will Bermudez MD LAB BLOOD ORDERABLES Final Res ult [facility] [address] [place] [id number] documented in this encounter Visit Diagnoses Diagnosis Liver transplant status (CMS/HCC) Other correction (current) drug therapy documented in this encounter Additional Health Concerns Assessment Noted Time A fall risk assessment has been complete d for the patient 06/08/2021 8:58 AM EST A Body Mass Index follow-up plan has been documented for the patient 05/05/2022 10:19 AM EST documented as of this encounter Care Teams Line Ordering Clinician Relationship Specialty Start Date End Date Ced Al MD [address] [place] [address] PCP - General 08/20/20 11/18/23 Mendoza Johnson DO [address] [place] [address] PCP - General 11/19/23 Sylvia De La Torre, RN CH-TRANSPLANT ADMINISTRATION [address] [place] [address] Surgical Navigator Transplant Surgery 01/11/21 [address] [place] [address] Surgical Navigator Transplant Surgery 01/11/21 Wolf Dubose MD [address] [address] Surgeon Transplant Surgery 01/11/21 Donovan Zaragoza APRN [address] [address] Referring Physician Transplant Surgery 01/11/21 documented as of this encounter
--- OUTSIDE RECORDS SUMMARY | 2024-12-25 09:05 | XMS_ITS | Encounter Summary ---
Author Organization [facility] Address [address] [place] [address] Care Team Providers Care Assistant Press Operator Offset Name Role Phone Ced Al MD Primary Care Provider + [phone] Sylvia De La Torre RN Unavailable [phone] Nyasia Moses Unavailable [phone] Wolf Dubose MD Unavailable [phone] Donovan Zaragoza APRN Unavailable [phone] Mendoza Johnson DO Primary Care Provider [phone] Encounter Details Date Type Department Care Team (Late st Contact Info) Description 10/05/2021 Lab Requisition [facility] [address] [place] [address] Will Bermudez MD [address] [facility] [address] [place] [address] Encounter for general adult medical examination without [...] [facility] [address] [place] [address] Nisreen Wilkinson, EDGE ROLLER [address] [address] documented as of this encounter Procedures Procedure Name Priority Date/Time Associated Diagnosis Comments CYCLOSPORINE LEVEL Routine 10/05/2021 10 :00 AM EDT Encounter for general adult medical examination without abnormal findings documented in this encounter Results * Cyclosporine (10/05/2021 10:00 AM EDT) Cyclosporine 335 100 - 400 ng/mL 10/06/2021 1:55 PM EDT [facility] Comment: Cyclosporine therapeutic range: Kidney transplant................... 100-200 ng/mL Heart transplant.................... 100-300 ng/mL Liver transplant.................... 100-300 ng/mL Lung;heart/lung transplant.......... 100-350 ng/mL Test performed by LC-MS/MS at the [facility]. This test was developed and its performance characteristics determined by [facility]. It has not been cleared or approved by the FDA. The laboratory is regulated under CLIA as qualified to perform high-complexity testing. This test is used for clinical purposes. Blood Venous blood specimen / Unknown 10/05/2021 10:00 AM EDT 10/05/2021 1:31 PM EDT us Will Bermudez MD LAB BLOOD ORDERABLES Final Res ult [facility] [address] [place] [address] documented in this encounter Visit Diagnoses Diagnosis [...] as of this encounter Care Teams Assistant Press Operator Offset Relationship Specialty Start Date End Date Ced Al MD [address] [place], [place] [id number] PCP - General 08/20/20 11/18/23 Mendoza Johnson DO [address] [place] [address] PCP - General 11/19/23 Sylvia De La Torre RN CH-TRANSPLANT ADMINISTRATION [address] [place] [address] Surgical Navigator Transplant Surgery 01/11/21 [place] [address] Surgical Navigator Transplant Surgery 01/11/21 Wolf Dubose MD [address] [place] [address] Surgeon Transplant Surgery 01/11/21 Donovan Zaragoza APRN [address] [place] [address] Referring Physician Transplant Surgery 01/11/21 documented as of this encounter
--- OUTSIDE RECORDS SUMMARY | 2024-12-25 09:05 | XMS_ITS | Encounter Summary ---
Author Organization [facility] Address [address] [place] [address] Care Team Providers Care Experimental Box Tester Name Role Phone Ced Al MD Primary Care Provider + [phone] Sylvia De La Torre RN Unavailable [phone] Nyasia Moses Unavailable [phone] Wolf Dubose MD Unavailable [phone] Donovan Zaragoza APRN Unavailable [phone] Mendoza Johnson DO Primary Care Provider [phone] Encounter Details Date Type Department Care Team (Late st Contact Info) Description 10/07/2021 Lab Requisition [facility] [address] [place] [address] Will Bermudez MD [address] [facility] [address] [place] [address] Liver transplant status (CMS/HCC) Social History Tobacco [...] [facility] [address] [place] [address] Nisreen [place], INSTRUCTIONAL SUPPORT TECHNICIAN [address] [address] documented as of this encounter Procedures Procedure Name Priority Date/Time Associated Diagnosis Comments CYCLOSPORINE LEVEL Routine 10/07/2021 8: 35 AM EDT Liver transplant status (CMS/HCC) documented in this encounter Results * Cyclosporine (10/07/2021 8:35 AM EDT) Cyclosporine 348 100 - 400 ng/mL 10/07/2021 2:[address] [facility] Blood Venous blood specimen / Unknown 10/07/2021 8:35 AM EDT 10/07/2021 11:11 AM EDT us Will Bermudez MD LAB BLOOD ORDERABLES Final Res ult [facility] [address] [place] [phone] documented in this encounter Visit Diagnoses Diagnosis Liver transplant status (CMS/HCC) documented in this encounter Additional Health Concerns Assessment Noted Time A fall risk assessment has been complete d for the patient 06/08/2021 8:58 AM EST A Body Mass Index follow-up plan has been documented for the patient 05/05/2022 10:19 AM EST documented as of this encounter Care Teams Experimental Box Tester Relationship Specialty Start Date End Date Ced Al MD [address] [place] [address] PCP - General 08/20/20 11/18/23 Mendoza Johnson DO [address] [place] [address] PCP - General 11/19/23 Sylvia De La Torre RN CH-TRANSPLANT ADMINISTRATION [address] [place], [place] [id number] Surgical Navigator Transplant Surgery 01/11/21 Nyasia Moses [place] [id number] Surgical Navigator Transplant Surgery 01/11/21 Wolf Dubose MD [address] [address] Surgeon Transplant Surgery 01/11/21 Dnoovan Zaragoza APRN [address] [place] [address] Referring Physician Transplant Surgery 01/11/21 documented as of this encounter
[2024-12-26 14:17] LABS: Albumin 3.5 g/dL (2.9-4.4); Alpha-1-Globulin 0.2 g/dL (0.0-0.4); Alpha-2-Globulin 0.7 g/dL (0.4-1.0); Gamma Globulin 0.6 g/dL (0.4-1.8)
== END 2024-12-25 23:59 | disposition home or self-care (01) ==
LOC: LAB 08:42
PROVIDERS: PCP Family Medicine; Visit Provider Physician Assistant
DX: R77.9 Abnormality of plasma protein, unspecified (principal)
CPT/HCPCS: 36415; 82784; 83521; 84155; 84165; 86335

== ENCOUNTER 2025-01-29 11:59 | Outpatient (CLI) | payer MEDICARE, MEDICAID, SELFPAY ==
--- OUTSIDE RECORDS SUMMARY | 2025-01-29 12:02 | XMS_ITS | Encounter Summary ---
Author Organization [facility] Address [address] [place] [address] Care Team Providers Care Shift Supervisor Melting Name Role Phone Ced Al MD Primary Care Provider + [phone] Sylvia De La Torre RN Unavailable [phone] Nyasia Moses Unavailable [phone] oWlf Dubose MD Unavailable [phone] Donovan Zaragoza APRN Unavailable [phone] Mendoza Johnson DO Primary Care Provider [phone] Encounter Details Date Type Department Care Team (Late st Contact Info) Description 08/11/2022 Orders Only External Location [address] [place] [address] Provider, External Social History Tobacco Use Types [...] Description 01/30/2025 9:20 AM EDT Office Visit [facility] [address] [facility] [address] [place] [address] Nisreen [place], CARE TEAM ASSISTANT [address] [address] documented as of this encounter [...] documented as of this encounter Care Teams Shift Supervisor Melting Relationship Specialty Start Date End Date Ced Al MD [address] [place], [place] [id number] PCP - General 08/20/20 11/18/23 Mendoza Johnson DO [address] [place], [place] [address] PCP - General 11/19/23 Sylvia De La Torre RN CH-TRANSPLANT ADMINISTRATION [address] [place] [address] Surgical Navigator Transplant Surgery 01/11/21 [place] [address] Surgical Navigator Transplant Surgery 01/11/21 Wolf Dubose MD [address] [place] [address] Surgeon Transplant Surgery 01/11/21 Donovan Zaragoza APRN [address] [place] [address] Referring Physician Transplant Surgery 01/11/21 documented as of this encounter
--- OUTSIDE RECORDS SUMMARY | 2025-01-29 12:02 | XMS_ITS ---
Author Organization [facility] Address [address] [place] [address] Care Team Providers Care Sap Director Name Role Phone Sylvia De La Torre RN Unavailable [phone] Nyasia Moses Unavailable [phone] Wolf Dubose MD Unavailable [phone] Donovan Zaragoza APRN Unavailable [phone] Mendoza Johnson DO Primary Care Provider [phone] Transplant Episode Liver Recipient [facility] ([place], [place]) [facility] Organ Received: Liver Transplanted on 11/21/2020 Marked as Active Follow-up on 11/21/2020 Liver CoordinatorChichi Babb RN Fax: N/A Email: N/A [place] Organ Diagnosis Organ Primary Contributory Liver Alcoholic [...] Fax Email Chichi Babb, FREDA Liver Coordinator [phone] N/A N /A Wolf Dubose MD Surgeon [phone] N/A LAUREL RiderW Online Facilitator [phone] N/A N/A Shona Guerrero APRN Referring Physician [phone] N/A Ced Al MD Primary Care Provider [phone] N/A Will Bermudez MD Transplant Physician [phone] N/A Events Post-Transplant Pre-Transplant Admitted: 11/16/2020 Referred: 09/20/2020 Transplanted: 11/21/2020 Evaluation began: 1 Discharged: 12/15/2020 Committee: 10/18/2020 Center waitlisted: 1
--- OUTSIDE RECORDS SUMMARY | 2025-01-29 12:02 | XMS_ITS | Encounter Summary ---
Author Organization [facility] Address [address] [place] [address] Care Team Providers Care Fitter Machinist Name Role Phone Ced Al MD Primary Care Provider + [phone] Sylvia De La Torre RN Unavailable [phone] Nyasia Moses Unavailable [phone] Wolf Dubose MD Unavailable [phone] Donovan Zaragoza APRN Unavailable [phone] Mendoza Johnson DO Primary Care Provider [phone] Encounter Details Date Type Department Care Team (Late st Contact Info) Description 03/28/2021 Lab Requisition [facility] [address] [place] [address] Karla Kate, WORD PROCESSING MACHINE OPERATOR [address] [facility] [address] [place] [address] Liver transplant status (CMS/HCC); Other half-way (current) drug therapy Social History Tobacco Use [...] Description 01/30/2025 9:20 AM EDT Office Visit [facility] [address] [place] [address] Nisreen [place], WORD PROCESSING MACHINE OPERATOR [address] [address] documented as of this encounter Procedures Procedure Name Priority Date/Time Associated Diagnosis Comments CYCLOSPORINE LEVEL Routine 03/28/2021 10 :26 AM EST Liver transplant status (CMS/HCC) Other half-way (current) drug therapy documented in this encounter Results * Cyclosporine (03/28/2021 10:26 AM EST) Cyclosporine 118 100 - 400 ng/mL 03/29/2021 8:09 AM EST [facility] Comment: Cyclosporine therapeutic range: Kidney transplant................... 100-200 ng/mL Heart transplant.................... 100-300 ng/mL Liver transplant.................... 100-300 ng/mL Lung;heart/lung transplant.......... 100-350 ng/mL Test performed by LC-MS/MS at the [facility]. This test was developed and its performance characteristics determined by [facility]. It has not been cleared or approved by the FDA. The laboratory is regulated under CLIA as qualified to perform high-complexity testing. This test is used for clinical purposes. Blood Venous blood specimen / Unknown 03/28/2021 10:26 AM EST 03/28/2021 1:41 PM EST us Karla Kate APRN LAB BLOOD ORDERABLES Final R esult [facility] [address] [place] [address] documented in this encounter Visit Diagnoses Diagnosis Liver transplant status (CMS/HCC) Other terminal carman (current) drug therapy documented in this encounter Additional Health Concerns Assessment Noted Time A fall risk assessment has been complete d for the patient 03/08/2021 8:05 AM EST documented as of this encounter Care Teams Fitter Machinist Relationship Specialty Start Date End Date Ced Al MD [address] [place] [address] PCP - General 08/20/20 11/18/23 Mendoza Johnson DO [address] [place] [address] PCP - General 11/19/23 Sylvia De La Torre, RN CH-TRANSPLANT ADMINISTRATION [address] [place] [address] Surgical Navigator Transplant Surgery 01/11/21 [place] [address] Surgical Navigator Transplant Surgery 01/11/21 Wolf Dubose MD [address] [place] [address] Surgeon Transplant Surgery 01/11/21 Donovan Zaragoza APRN [address] [place] [address] Referring Physician Transplant Surgery 01/11/21 documented as of this encounter
--- OUTSIDE RECORDS SUMMARY | 2025-01-29 12:02 | XMS_ITS | Encounter Summary ---
Author Organization [facility] Address [address] [place] [address] Care Team Providers Care Regional Sales Consultant Name Role Phone Sylvia De La Torre RN Unavailable [phone] Nyasia Moses Unavailable [phone] Wolf Dubose MD Unavailable [phone] Donovan Zaragoza APRN Unavailable [phone] Mendoza Johnson DO Primary Care Provider [phone] Encounter Details Date Type Department Care Team (Late st Contact Info) Description 12/18/2024 Orders Only [facility] [address] [place] [address] oJsephine Parikh Acute kidney injury (CMS/HCC) (Primary Dx); [...] [facility] [address] [place] [address] Nisreen Wilkinson, HORSE SHOER [address] [address] Scheduled Orders Name Type Priority Associated Diagnoses Orde r Schedule Renal Function Panel, Plasma Lab Routine Acute kidney injury ([facility]/HCC) Expected: 12/18/2024 (Approximate), Expires: 06/17/2026 CBC and Differential Lab Routine Acute kidney injury ([facility]/HCC) Expected: 12/18/2024 (Approximate), Expires: 06/17/2026 Creatinine, Random, Urine Lab Routine Acute kidney injury ([facility]/HCC) Expected: 12/18/2024 (Approximate), Expires: 06/17/2026 Protein, Random, Urine with Creatinine Lab Routine Acute kidney injury ([facility]) Expected: 12/18/2024 (Approximate), Expires: 06/17/2026 Urinalysis with reflex microscopic (Culture NOT Included) Lab Routine Acute kidney injury ([facility]) Expected: 12/18/2024 (Approximate), Expires: 06/17/2026 PTH Intact Total Lab Routine Acute kidney injury ([facility]) Vitamin D insufficiency Expected: 12/18/2024 (Approximate), Expires: 06/17/2026 Vitamin D 25 Hydroxy Lab Routine Acute kidney injury ([facility]) Vitamin D insufficiency Expected: 12/18/2024 (Approximate), Expires: 06/17/2026 Albumin-creatinine ratio, urine, random Lab Routine Acute kidney injury ([facility]) Expected: 12/18/2024 (Approximate), Expires: 06/17/2026 Hemoglobin A1c Lab Routine Acute kidney injury ([facility]) Expected: 12/18/2024 (Approximate), Expires: 06/21/2026 documented as of this encounter Visit Diagnoses Diagnosis Acute kidney injury- Primary Vitamin D insufficiency documented in this encounter Additional Health Concerns Assessment Noted Time A fall risk assessment has been complete d for the patient 05/02/2024 2:30 PM EST A Body Mass Index follow-up plan has been documented for the patient 05/02/2024 2:56 PM EST documented as of this encounter Care Teams Regional Sales Consultant Relationship Specialty Start Date End Date Mendoza Johnson DO [address] [place] [address] PCP - General 11/19/23 Sylvia De La Torre RN [facility] [address] [place] [address] Surgical Navigator Transplant Surgery 01/11/21 [place] [address] Surgical Navigator Transplant Surgery 01/11/21 Wolf Dubose MD [address] [facility] [address] [place] [address] Surgeon Transplant Surgery 01/11/21 Donovan Zaragoza APRN [address] [place] [address] Referring Physician Transplant Surgery 01/11/21 documented as of this encounter
--- OUTSIDE RECORDS SUMMARY | 2025-01-29 12:02 | XMS_ITS | Encounter Summary ---
Author Organization [facility] Address [address] [place] [address] Care Team Providers Care Marketing Analytics Manager Name Role Phone Ced Al MD Primary Care Provider + [phone] Sylvia De La Torre RN Unavailable [phone] Nyasia Moses Unavailable [phone] Wolf Dubose MD Unavailable [phone] Donovan Zaragoza MELTER SUPERVISOR Unavailable [phone] Mendoza Johnson DO Primary Care Provider [phone] Encounter Details Date Type Department Care Team (Late st Contact Info) Description 02/21/2021 Lab Requisition [facility] [address] [place] [address] Karla Kate, MELTER SUPERVISOR [address] [facility] [address] [place] [address] Liver transplant status (CMS/HCC) Social History Tobacco [...] Description 01/30/2025 9:20 AM EDT Office Visit [facility] [address] [place] [address] Nisreen Wilkinson, ERIKA [address] [address] documented as of this encounter Procedures Procedure Name Priority Date/Time Associated Diagnosis Comments CYCLOSPORINE LEVEL Routine 02/21/2021 10 :47 AM EST Liver transplant status (CMS/HCC) documented in this encounter Results * Cyclosporine (02/21/2021 10:47 AM EST) Cyclosporine 309 100 - 400 ng/mL 02/22/2021 1:44 PM EST [facility] Comment: Cyclosporine therapeutic range: Kidney transplant................... 100-200 ng/mL Heart transplant.................... 100-300 ng/mL Liver transplant.................... 100-300 ng/mL Lung;heart/lung transplant.......... 100-350 ng/mL Test performed by LC-MS/MS at the [facility]. This test was developed and its performance characteristics determined by [facility]. It has not been cleared or approved by the FDA. The laboratory is regulated under CLIA as qualified to perform high-complexity testing. This test is used for clinical purposes. Blood Venous blood specimen / Unknown 02/21/2021 10:47 AM EST 02/21/2021 4:16 PM EST Karla Kate APRN LAB BLOOD ORDERABLES Final R esult [facility] [address] [place] [address] documented in this encounter Visit Diagnoses Diagnosis Liver transplant status (CMS/HCC) documented in this encounter Additional Health Concerns Assessment Noted Time A fall risk assessment has been complete d for the patient 02/16/2021 9:03 AM EST documented as of this encounter Care Teams Marketing Analytics Manager Relationship Specialty Start Date End Date Ced Al MD [address] [place] [address] PCP - General 08/20/20 11/18/23 Mendoza Johnson DO [address] [place] [address] PCP - General 11/19/23 Sylvia De La Torre, FREDA [facility] [address] [place] [address] Surgical Navigator Transplant Surgery 01/11/21 [place] [address] Surgical Navigator Transplant Surgery 01/11/21 Wolf Dubose MD [address] [address] Surgeon Transplant Surgery 01/11/21 Donovan Zaragoza APRN [address] [place] [address] Referring Physician Transplant Surgery 01/11/21 documented as of this encounter
--- OUTSIDE RECORDS SUMMARY | 2025-01-29 12:02 | XMS_ITS | Clinical Summary ---
Author Organization [facility] Address [address] [place] [address] Care Team Providers Care Lottery Manager Name Role Phone Sylvia De La Torre RN Unavailable [phone] Nyasia Moses Unavailable Wolf Dubose MD Unavailable Donovan Zaragoza APRN Unavailable [phone] Mendoza Johnson DO Primary Care Provider [...] hours if needed. 3 Active HYDROcodone-acetami nophen (Holden) 7.5-325 MG tablet 3 Active hydrALAZINE (Apresoline) [...] 1 (one) time each day. 3 Active cycloSPORINE modified (Gengraf) 25 MG capsule [...] TWO TIMES A DAY 60 tablet 2 5 Active Active Problems Problem Noted Date Diagnosed Date Transplanted liver 11/16/2021 Hypothyroidism 03/09/2021 Congenital kidney disease 03/09/2021 History of psychiatric treatment 03/09/2021 Chronic obstructive pulmonary disease 03/09/2021 Anemia 03/09/2021 Right inguinal hernia 01/11/2021 ESRD (end stage renal disease) 12/29/2020 Overview (12/29/2020): Added automatically from request for surgery [id number] Complications due to vascular device, implant, a nd graft 12/29/2020 Overview (12/29/2020): Added automatically from request for surgery [id number] Secondary esophageal varices 11/20/2020 End stage liver [...] infection. No signs of infection so far. 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 If overcorrection, consider DDAVP or D5W. Acute kidney injury 10/13/2020 12/29/19 25 Overview (11/22/2020): Possible Hepatorenal syndrome Baseline Cr 1.08 Monitor renal function daily Avoid nephrotoxins, avoid NSAIDs, renally dose medications Nephrology following Continue gentle hydration Renal Function Panel daily Assessment & Plan (11/17/2020 7:38 PM EDT): Suspicious for hepatorenal syndrome. Labwork shows pre-renal etiology. Monitor I&Os and daily weights. Nephrology following, midodrine dose increased to 15 mg TID and octreotide started 200mg TID. Decompensation of cirrhosis of liver 10/08/2020 12/09/2020 Overview (11/21/2020): 8/13 S/p paracentesis 7L removed 11/21 s/p OLT [...] Type Department Care Team Description 12/23/2024 Refill [facility] [address] [place] [address] Karla Kate, DYNAMOMETER TESTER 12/18/2024 Orders Only [facility] [address] [place] [address] Josephine Parikh Acute kidney injury [...] 9:20 AM EDT Office Visit [facility] [address] [place] [address] Nisreen Wilkinson, DYNAMOMETER TESTER [address] [address] Health Maintenance Due Date Last [...] 12/21/1999 FIT 12/21/1999 FOBT 12/21/1999 Sigmoidoscopy 12/21/1999 Lung Cancer Screening Shared Decision Making 2004 [facility]-RSV Vaccine: 60+ Years or (1 - Risk 60-74 years 1-dose series) 2014 [facility]-Abdominal Aortic Aneurysm (AAA) Screening 12/21/2019 [facility]-Hepatitis A Vaccines (2 of 2 - Risk 2-dose series) 04/15/2021 10/13/2020 [facility]-Lung Cancer Screening 11/28/2021 11/28/2020 [facility]-VDFGR-17 Vaccine (3 - Pfizer risk series) 02/08/2022 [...] this topic Medical Devices Implanted Type Area Roadway Engineer Device Identifier Shelf Expiration Date Model / Serial / Lot Stent Noah Bashir 10fr X 7cm - [id number] Implanted:Qty: 1 on 11/20/2020 by Wolf Dubose MD at [facility]-[id number] / / Procedures Procedure Name Priority Date/Time [...] WO IV CONTRAST ordered by URBAN PATEL, [id number] CLINICAL INDICATION: Respiratory illness, nondiagnostic xray TECHNIQUE: [...] WO IV CONTRAST ordered by URBAN PATEL, [id number] CLINICAL INDICATION: Respiratory illness, nondiagnostic xray TECHNIQUE: [...] on 11/28/2020 2:07 PM Urban Patel MD [facility] CT PROCEDURES Final Result * Colonoscopy (11/10/2020 [...] Adams, PRIMO Other Boni Marie, RANDY Endo Manager Mental Health Ciro Castro, RN Endo Nurse Demetrice Andres [...] of bowel preparation was evaluated using the Heber Bowel Preparation Scale with scores of: right [...] Most Recently Relevant to Health Maintenance Insurance [facility] UHC MEDICARE [facility] Advance Directives * Full Code (Latest Code Status on File) Date Activated Date Inactivated Comments 11/16/2020 3:25 PM 12/15/2020 4:25 PM Question Answer Comments Patient has decision-making capacity? Yes * Full Code Date Activated Date Inactivated Comments 10/08/2020 3:39 AM 10/17/2020 6:04 PM Question Answer Comments Patient has decision-making capacity? Yes Care Teams Lottery Manager Relationship Specialty Start Date End Date Mendoza Johnson DO [address] [place] [address] PCP - General 11/19/23 Sylvia De La Torre, RN [facility] [address] [place] [address] Surgical Navigator Transplant Surgery 01/11/21 [place] [address] Surgical Navigator Transplant Surgery 01/11/21 Wolf Dubose MD [address] [address] Surgeon Transplant Surgery 01/11/21 Donovan Zaragoza APRN [address] [place] [address] Referring Physician Transplant Surgery 01/11/21
--- OUTSIDE RECORDS SUMMARY | 2025-01-29 12:02 | XMS_ITS | Encounter Summary ---
Author Organization [facility] Address [address] [place] [address] Care Team Providers Care Business Insight And Analytics Manager Name Role Phone Sylvia De La Torre RN Unavailable [phone] Nyasia Moses Unavailable Wolf Dubose MD Unavailable [phone] Donovan Zaragoza APRN Unavailable [phone] Mendoza Johnson DO Primary Care Provider [phone] Reason for Visit * Reason Comments Med Refill Encounter Details Date Type Department Care Team (Late st Contact Info) Description 12/23/2024 Refill [facility] [address] [facility] [place] [address] Karla Kate, WORKERS COMPENSATION CLAIMS EXAMINER [address] [address] Social History Tobacco Use Types [...] Description 01/30/2025 9:20 AM EDT Office Visit [facility] [address] [place] [address] Nisreen Wilkinson, ERIKA [address] [address] documented as of this encounter Visit Diagnoses Not on filedocumented in this encounter Additional Health Concerns Assessment Noted Time A fall risk assessment has been complete d for the patient 05/02/2024 2:30 PM EST A Body Mass Index follow-up plan has been documented for the patient 05/02/2024 2:56 PM EST documented as of this encounter Care Teams Business Insight And Analytics Manager Relationship Specialty Start Date End Date Mendoza Johnson DO [address] [place] [id number] PCP - General 11/19/23 Sylvia De La Torre RN [facility] [address] [place] [address] Surgical Navigator Transplant Surgery 01/11/21 [place] [address] Surgical Navigator Transplant Surgery 01/11/21 Wolf Dubose MD [address] [address] Surgeon Transplant Surgery 01/11/21 Donovan Zaragoza APRN [address] [facility] [place] [address] Referring Physician Transplant Surgery 01/11/21 documented as of this encounter
--- OUTSIDE RECORDS SUMMARY | 2025-01-29 12:02 | XMS_ITS | Encounter Summary ---
Author Organization [facility] Address [address] [facility] [place] [address] Care Team Providers Care Sales Assistants And Salespersons Name Role Phone Ced Al MD Primary Care Provider + [phone] Sylvia De La Torre RN Unavailable [phone] Nyasia Moses Unavailable [phone] Wolf Dubose MD Unavailable [phone] Donovan Zaragoza APRN Unavailable [phone] Mendoza Johnson DO Primary Care Provider [phone] Encounter Details Date Type Department Care Team (Late st Contact Info) Description 07/08/2021 Lab Requisition [facility] [address] [place] [address] Will Bermudez MD [address] [facility] [address] [place] [address] Liver transplant status (CMS/HCC) Social History Tobacco [...] Description 01/30/2025 9:20 AM EDT Office Visit [facility] [address] [place] [address] Nisreen Wilkinson, ERIKA [address] [address] documented as of this encounter Procedures Procedure Name Priority Date/Time Associated Diagnosis Comments CYCLOSPORINE LEVEL Routine 07/08/2021 1: 35 PM EDT Liver transplant status (CMS/HCC) documented in this encounter Results * (ABNORMAL) Cyclosporine (07/08/2021 1:35 PM EDT) Cyclosporine 87(L) 100 - 400 ng/mL 07/09/2021 12:59 PM EDT [facility] Comment: Cyclosporine therapeutic range: Kidney transplant................... 100-200 ng/mL Heart transplant.................... 100-300 ng/mL Liver transplant.................... 100-300 ng/mL Lung;heart/lung transplant.......... 100-350 ng/mL Test performed by LC-MS/MS at the [facility]. This test was developed and its performance characteristics determined by [facility]. It has not been cleared or approved by the FDA. The laboratory is regulated under CLIA as qualified to perform high-complexity testing. This test is used for clinical purposes. Blood Venous blood specimen / Unknown 07/08/2021 1:35 PM EDT 07/08/2021 4:54 PM EDT us Will Bermudez MD LAB BLOOD ORDERABLES Final Res ult [facility] [address] [place] [address] documented in this encounter Visit Diagnoses Diagnosis Liver transplant status (CMS/HCC) documented in this encounter Additional Health Concerns Assessment Noted Time A fall risk assessment has been complete d for the patient 06/08/2021 8:58 AM EST A Body Mass Index follow-up plan has been documented for the patient 05/05/2022 10:19 AM EST documented as of this encounter Care Teams Sales Assistants And Salespersons Relationship Specialty Start Date End Date Ced Al MD [address] [place] [address] PCP - General 08/20/20 11/18/23 Mendoza Johnson DO [address] [place] [address] PCP - General 11/19/23 Sylvia De La Torre, RN [facility] [address] [place] [address] Surgical Navigator Transplant Surgery 01/11/21 [place] [address] Surgical Navigator Transplant Surgery 01/11/21 Wolf Dubose MD [address] [address] Surgeon Transplant Surgery 01/11/21 Donovan Zaragoza APRN [address] [place] [address] Referring Physician Transplant Surgery 01/11/21 documented as of this encounter
--- OUTSIDE RECORDS SUMMARY | 2025-01-29 12:03 | XMS_ITS | Encounter Summary ---
Author Organization [facility] Address [address] [place] [address] Care Team Providers Care Bellhop Name Role Phone Ced Al MD Primary Care Provider + [phone] Sylvia De La Torre RN Unavailable [phone] Nyasia Moses Unavailable [phone] Wolf Dubose MD Unavailable [phone] Donovan Zaragoza APRN Unavailable [phone] Mendoza Johnson DO Primary Care Provider [phone] Encounter Details Date Type Department Care Team (Late st Contact Info) Description 01/22/2021 Lab Requisition [facility] [address] [place] [address] Will Bermudez MD [address] [facility] [address] [place] [address] Encounter for general adult medical examination without [...] Description 01/30/2025 9:20 AM EDT Office Visit [facility] [address] [place] [address] Nisreen Wilkinson, ERIKA [address] [address] documented as of this encounter Procedures Procedure Name Priority Date/Time Associated Diagnosis Comments CYCLOSPORINE LEVEL Routine 01/22/2021 12 :09 PM EDT Encounter for general adult medical examination without abnormal findings documented in this encounter Results * (ABNORMAL) Cyclosporine (01/22/2021 12:09 PM EDT) Cyclosporine 484(HH) 100 - 400 ng/mL 01/23/2021 1:45 PM EDT [facility] Comment: Cyclosporine therapeutic range: Kidney transplant................... 100-200 ng/mL Heart transplant.................... 100-300 ng/mL Liver transplant.................... 100-300 ng/mL Lung;heart/lung transplant.......... 100-350 ng/mL Test performed by LC-MS/MS at the [facility]. This test was developed and its performance characteristics determined by [facility]. It has not been cleared or approved by the FDA. The laboratory is regulated under CLIA as qualified to perform high-complexity testing. This test is used for clinical purposes. Blood Venous blood specimen / Unknown 01/22/2021 12:09 PM EDT 01/22/2021 3:40 PM EDT us Will Bermudez MD LAB BLOOD ORDERABLES Final Res ult Performing Organization Address City/State/[facility] Co de Phone Number [facility] [address] [place] [address] documented in this encounter Visit Diagnoses Diagnosis Encounter for general adult medical examination without abnormal findings documented in this encounter Additional Health Concerns Assessment Noted Time A fall risk assessment has been complete d for the patient 01/04/2021 7:28 AM EDT documented as of this encounter Care Teams Bellhop Relationship Specialty Start Date End Date Ced Al MD [address] [place] [address] PCP - General 08/20/20 11/18/23 Mendoza Johnson DO [address] [place] [address] PCP - General 11/19/23 Sylvia De La Torre, RN [facility]ANT [employer]MINISTRATION [address] [place] [address] Surgical Navigator Transplant Surgery 01/11/21 [place] [address] Surgical Navigator Transplant Surgery 01/11/21 Wolf Dubose MD [address] [place] [address] Surgeon Transplant Surgery 01/11/21 Donovna Zaragoza APRN [address] [place] [address] Referring Physician Transplant Surgery 01/11/21 documented as of this encounter
--- OUTSIDE RECORDS SUMMARY | 2025-01-29 12:03 | XMS_ITS | Encounter Summary ---
Author Organization [facility] Address [address] [place] [address] Care Team Providers Care Manager Home Improvement Name Role Phone Ced Al MD Primary Care Provider + [phone] Sylvia De La Torre RN Unavailable [phone] Nyasia Moses Unavailable [phone] Wolf Dubose MD Unavailable [phone] Donovan Zaragoza APRN Unavailable [phone] Mendoza Johnson DO Primary Care Provider [phone] Encounter Details Date Type Department Care Team (Late st Contact Info) Description 12/27/2020 Lab Requisition [facility] [address] [place] [address] Dot Monge Encounter for general adult medical [...] Description 01/30/2025 9:20 AM EDT Office Visit [facility] [address] [place] [address] Nisreen Wilkinson, LEARNING OFFICER [address] [address] documented as of this encounter [...] developed and its performance characteristics determined by [facility]. It has not been cleared or approved by the FDA. The laboratory is regulated under CLIA as qualified to perform high-complexity testing. This test is used for clinical purposes. Blood Venous blood specimen / Unknown 12/27/2020 4:46 AM EDT 12/27/2020 11:00 AM EDT us Dot Monge LAB BLOOD ORDERABLES Final Resul t [facility] [address] [place] [address] documented in this encounter Visit Diagnoses Diagnosis Encounter for general adult medical examination without abnormal findings documented in this encounter Additional Health Concerns Assessment Noted Time A fall risk assessment has been complete d for the patient 11/16/2020 8:39 AM EDT documented as of this encounter Care Teams Manager Home Improvement Relationship Specialty Start Date End Date Ced Al MD [address] [place] [address] PCP - General 08/20/20 11/18/23 Mendoza Johnson DO [address] [place] [address] PCP - General 11/19/23 White, [place] E, RN [facility]MINISTR[facility] [address] [place] [address] Surgical Navigator Transplant Surgery 01/11/21 Nyasia Moses [place] [id number] Surgical Navigator Transplant Surgery 01/11/21 Wolf Dubose MD [address] [place] [address] Surgeon Transplant Surgery 01/11/21 Donovan Zaragoza APRN [address] [place] [address] Referring Physician Transplant Surgery 01/11/21 documented as of this encounter
--- OUTSIDE RECORDS SUMMARY | 2025-01-29 12:03 | XMS_ITS | Encounter Summary ---
Author Organization [facility] Address [address] [place] [address] Care Team Providers Care Tank Cleaning Supervisor Name Role Phone Ced Al MD Primary Care Provider + [phone] Sylvia De La Torre RN Unavailable [phone] Nyasia Moses Unavailable [phone] Wolf Dubose MD Unavailable [phone] Donovan Zaragoza APRN Unavailable [phone] Mendoza Johnson DO Primary Care Provider [phone] Encounter Details Date Type Department Care Team (Late st Contact Info) Description 03/22/2022 Lab Requisition [facility] [address] [place] [address] Karla Kate, PACKING ROOM SUPERVISOR [address] [facility] [address] [place] [address] Liver transplant status (CMS/HCC); Other detention (current) drug therapy; Chronic viral hepatitis C [...] [place] [address] Nisreen Wilkinson, ERIKA [address] [address] documented as of this encounter Procedures Procedure Name Priority Date/Time Associated Diagnosis Comments CYCLOSPORINE LEVEL Routine 03/22/2022 10 :10 AM EST Liver transplant status (CMS/HCC) 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 100-200 ng/mL Heart transplant.................... 100-300 ng/mL Liver transplant.................... 100-300 ng/mL Lung;heart/lung transplant.......... 100-350 ng/mL Test performed by LC-MS/MS at the [facility]. This test was developed and its performance characteristics determined by [facility]. It has not been cleared or approved by the FDA. The laboratory is regulated under CLIA as qualified to perform high-complexity testing. This test is used for clinical purposes. Blood Venous blood specimen / Unknown 03/22/2022 10:10 AM EST 03/22/2022 2:32 PM EST us Karla Kate APRN LAB BLOOD ORDERABLES Final R esult [facility] [address] [place] [address] documented in this encounter Visit Diagnoses Diagnosis Liver transplant status (CMS/HCC) Other detention (current) drug therapy Chronic viral hepatitis C [...] documented as of this encounter Care Teams Tank Cleaning Supervisor Relationship Specialty Start Date End Date Ced Al MD [address] [place] [address] PCP - General 08/20/20 11/18/23 Mendoza Johnson DO [address] [place] [address] PCP - General 11/19/23 Sylvia De La Torre, RN CH-TRANSPLANT ADMINISTRATION [address] [place] [address] Surgical Navigator Transplant Surgery 01/11/21 [place] [address] Surgical Navigator Transplant Surgery 01/11/21 Wolf Dubose MD [address] [place] [address] Surgeon Transplant Surgery 01/11/21 Donovan Zaragoza APRN [address] [place] [address] Referring Physician Transplant Surgery 01/11/21 documented as of this encounter
--- OUTSIDE RECORDS SUMMARY | 2025-01-29 12:03 | XMS_ITS | Encounter Summary ---
Author Organization [facility] Address [address] [place] [address] Care Team Providers Care Recovery Rn Name Role Phone Ced Al MD Primary Care Provider + [phone] Sylvia De La Torre RN Unavailable [phone] Nyasia Moses Unavailable [phone] Wolf Dubose MD Unavailable [phone] Donovan Zaragoza APRN Unavailable [phone] Mendoza Johnson DO Primary Care Provider [phone] Encounter Details Date Type Department Care Team (Late st Contact Info) Description 04/19/2022 Lab Requisition [facility] [address] [place] [address] Karla Kate, BRIEFCASE SEWER [address] [facility] [address] [place] [address] Liver transplant status (CMS/HCC); Other senior care (current) drug therapy Social History Tobacco [...] Description 01/30/2025 9:20 AM EDT Office Visit [facility] [address] [place] [address] Nisreen Wilkinson, BRIEFCASE SEWER [address] [address] documented as of this encounter Procedures Procedure Name Priority Date/Time Associated Diagnosis Comments CYCLOSPORINE LEVEL Routine 04/19/2022 10 :25 AM EST Liver transplant status (CMS/HCC) Other senior care (current) drug therapy documented in this [...] developed and its performance characteristics determined by [facility]. It has not been cleared or approved by the FDA. The laboratory is regulated under CLIA as qualified to perform high-complexity testing. This test is used for clinical purposes. Blood Venous blood specimen / Unknown 04/19/2022 10:25 AM EST 04/19/2022 2:25 PM EST us Karla Kate APRN LAB BLOOD ORDERABLES Final R esult [facility] [address] [place] [address] documented in this encounter Visit Diagnoses Diagnosis Liver transplant status (CMS/HCC) Other senior care (current) drug therapy documented in this encounter Additional Health Concerns Assessment Noted Time A fall risk assessment has been complete d for the patient 12/09/2021 7:36 AM EDT A Body Mass Index follow-up plan has been documented for the patient 05/05/2022 10:19 AM EST documented as of this encounter Care Teams Recovery Rn Relationship Specialty Start Date End Date Ced Al MD [address] [place] [address] PCP - General 08/20/20 11/18/23 Mendoza Johnson DO [address] [place] [address] PCP - General 11/19/23 Sylvia De La Torre, RN CH-TRANSPLANT ADMINISTRATION [address] [place] [address] Surgical Navigator Transplant Surgery 01/11/21 [place] [address] Surgical Navigator Transplant Surgery 01/11/21 Wolf Dubose MD [address] [address] Surgeon Transplant Surgery 01/11/21 Donovan Zaragoza APRN [address] [place] [address] Referring Physician Transplant Surgery 01/11/21 documented as of this encounter
--- OUTSIDE RECORDS SUMMARY | 2025-01-29 12:03 | XMS_ITS | Encounter Summary ---
Author Organization [facility] Address [address] [place] [address] Care Team Providers Care Learning Analyst Name Role Phone Ced Al MD Primary Care Provider + [phone] Sylvia De La Torre RN Unavailable [phone] Nyasia Moses Unavailable [phone] Wolf Dubose MD Unavailable [phone] Donovan Zaragoza APRN Unavailable [phone] Mendoza Johnson DO Primary Care Provider [phone] Encounter Details Date Type Department Care Team (Late st Contact Info) Description 06/14/2022 Lab Requisition [facility] [address] [place] [address] Will Bermudez MD [address] [facility] [address] [place] [address] Liver transplant status (CMS/HCC) Social History Tobacco [...] Description 01/30/2025 9:20 AM EDT Office Visit [facility] [address] [place] [address] Nisreen Wilkinson, SUPERVISOR ASBESTOS REMOVAL [address] [address] documented as of this encounter Procedures Procedure Name Priority Date/Time Associated Diagnosis Comments CYCLOSPORINE LEVEL Routine 06/14/2022 9: 36 AM EST Liver transplant status (CMS/HCC) documented in this encounter Results * Cyclosporine (06/14/2022 9:36 AM EST) Cyclosporine 119 100 - 400 ng/mL 06/15/2022 1:36 PM EST [facility] Comment: Cyclosporine therapeutic range: Kidney transplant................... 100-200 ng/mL Heart transplant.................... 100-300 ng/mL Liver transplant.................... 100-300 ng/mL Lung;heart/lung transplant.......... 100-350 ng/mL Test performed by LC-MS/MS at the [facility]. This test was developed and its performance characteristics determined by [facility]. It has not been cleared or approved by the FDA. The laboratory is regulated under CLIA as qualified to perform high-complexity testing. This test is used for clinical purposes. Blood Venous blood specimen / Unknown 06/14/2022 9:36 AM EST 06/14/2022 1:05 PM EST us Will Bermudez MD LAB BLOOD ORDERABLES Final Res ult [facility] [address] [place] [address] documented in this encounter Visit Diagnoses Diagnosis Liver transplant status (CMS/HCC) documented in this encounter Additional Health Concerns Assessment Noted Time A fall risk assessment has been complete d for the patient 12/09/2021 7:36 AM EDT A Body Mass Index follow-up plan has been documented for the patient 05/05/2022 10:19 AM EST documented as of this encounter Care Teams Learning Analyst Relationship Specialty Start Date End Date Ced Al MD [address] [place] [address] PCP - General 08/20/20 11/18/23 Mendoza Johnson DO [address] [place] [address] PCP - General 11/19/23 White, [place] E, RN CH-TRANSPLANT ADMINISTRATION [address] [place] [address] Surgical Navigator Transplant Surgery 01/11/21 [place] [address] Surgical Navigator Transplant Surgery 01/11/21 Wolf Dubose MD [address] [place] [address] Surgeon Transplant Surgery 01/11/21 Donovan Zaragoza APRN [address] [place] [address] Referring Physician Transplant Surgery 01/11/21 documented as of this encounter
--- OUTSIDE RECORDS SUMMARY | 2025-01-29 12:03 | XMS_ITS | Encounter Summary ---
Author Organization [facility] Address [address] [place] [address] Care Team Providers Care Supervisor Poultry Processing Name Role Phone Ced Al MD Primary Care Provider + [phone] Sylvia De La Torre RN Unavailable [phone] Nyasia Moses Unavailable [phone] Wolf Dubose MD Unavailable [phone] Donovan Zaragoza APRN Unavailable [phone] Mendoza Johnson DO Primary Care Provider [phone] Encounter Details Date Type Department Care Team (Late st Contact Info) Description 08/11/2022 Orders Only External Location [address] [place] [address] Ced Al MD [address] [place] [address] Social History Tobacco Use Types [...] Description 01/30/2025 9:20 AM EDT Office Visit [place] [id number] [facility] [address] [place] [address] Nisreen Wilkinson, LITHOGRAPHIC PHOTOGRAPHER APPRENTICE [address] [address] documented as of this encounter [...] as of this encounter Care Teams Supervisor Poultry Processing Relationship Specialty Start Date End Date Ced Al MD [address] [place] [address] PCP - General 08/20/20 11/18/23 Mendoza Johnson DO [address] [place] [address] PCP - General 11/19/23 Sylvia De La Torre RN CH-TRANSPLANT ADMINISTRATION [address] [place], [place] [address] Surgical Navigator Transplant Surgery 01/11/21 Nyasia Moses [place] [id number] Surgical Navigator Transplant Surgery 01/11/21 Wolf Dubose MD [address] [address] Surgeon Transplant Surgery 01/11/21 Donovan Zaragoza APRN [address] [place] [address] Referring Physician Transplant Surgery 01/11/21 documented as of this encounter
--- OUTSIDE RECORDS SUMMARY | 2025-01-29 12:03 | XMS_ITS | Encounter Summary ---
Author Organization [facility] Address [address] [place] [address] Care Team Providers Care Dispersion Mixer Name Role Phone Ced Al MD Primary Care Provider + [phone] Sylvia De La Torre RN Unavailable [phone] Nyasia Moses Unavailable [phone] Wolf Dubose MD Unavailable [phone] Donovan Zaragoza APRN Unavailable [phone] Mendoza Johnson DO Primary Care Provider [phone] Encounter Details Date Type Department Care Team (Late st Contact Info) Description 05/10/2022 Lab Requisition [facility] [address] [place] [address] Karla Kate, TRIPE FINISHER [address] [facility] [address] [place] [address] Liver transplant status (CMS/HCC); Other retirement (current) drug therapy Social History Tobacco Use [...] Description 01/30/2025 9:20 AM EDT Office Visit [facility] [address] [place] [address] Nisreen Wilkinson, TRIPE FINISHER [address] [address] documented as of this encounter Procedures Procedure Name Priority Date/Time Associated Diagnosis Comments CYCLOSPORINE LEVEL Routine 05/10/2022 10 :37 AM EST Liver transplant status (CMS/HCC) Other retirement (current) drug therapy documented in this encounter Results * Cyclosporine (05/10/2022 10:37 AM EST) Cyclosporine 125 100 - 400 ng/mL 05/11/2022 1:39 PM EST [facility] Comment: Cyclosporine therapeutic range: Kidney transplant................... 100-200 ng/mL Heart transplant.................... 100-300 ng/mL Liver transplant.................... 100-300 ng/mL Lung;heart/lung transplant.......... 100-350 ng/mL Test performed by LC-MS/MS at the [facility]. This test was developed and its performance characteristics determined by [facility]. It has not been cleared or approved by the FDA. The laboratory is regulated under CLIA as qualified to perform high-complexity testing. This test is used for clinical purposes. Blood Venous blood specimen / Unknown 05/10/2022 10:37 AM EST 05/10/2022 3:14 PM EST us Karla Kate APRN LAB BLOOD ORDERABLES Final R esult [facility] [address] [place] [address] documented in this encounter Visit Diagnoses Diagnosis Liver transplant status (CMS/HCC) Other retirement (current) drug therapy documented in this encounter Additional Health Concerns Assessment Noted Time A fall risk assessment has been complete d for the patient 12/09/2021 7:36 AM EDT A Body Mass Index follow-up plan has been documented for the patient 05/05/2022 10:19 AM EST documented as of this encounter Care Teams Dispersion Mixer Relationship Specialty Start Date End Date Ced Al MD [address] [place] [address] PCP - General 08/20/20 11/18/23 Mendoza Johnson DO [address] [place] [address] PCP - General 11/19/23 Sylvia De La Torre, RN CH-TRANSPLANT ADMINISTRATION [address] [place] [address] Surgical Navigator Transplant Surgery 01/11/21 [place] [address] Surgical Navigator Transplant Surgery 01/11/21 Wolf Dubose MD [address] [address] Surgeon Transplant Surgery 01/11/21 Donovan Zaragoza APRN [address] [place] [address] Referring Physician Transplant Surgery 01/11/21 documented as of this encounter
--- OUTSIDE RECORDS SUMMARY | 2025-01-29 12:03 | XMS_ITS | Encounter Summary ---
Author Organization [facility] Address [address] [place] [address] Care Team Providers Care Sanitation Tank Washer Name Role Phone Ced lA MD Primary Care Provider + [phone] Sylvia De La Torre RN Unavailable [phone] Nyasia Moses Unavailable [phone] Wolf Dubose MD Unavailable [phone] Donovan Zaragoza APRN Unavailable [phone] Mendoza Johnson DO Primary Care Provider [phone] Encounter Details Date Type Department Care Team (Late st Contact Info) Description 02/23/2022 Lab Requisition [facility] [address] [place] [address] Will Bermudez MD [address] [facility] [address] [place] [address] Liver transplant status (CMS/HCC); Other terminal system operator (current) drug therapy Social History Tobacco [...] [facility] [address] [place] [address] Nisreen Wilkinson, MAIL HANDLER SORTER [address] [address] documented as of this encounter Procedures Procedure Name Priority Date/Time Associated Diagnosis Comments CYCLOSPORINE LEVEL Routine 02/22/2022 10 :20 AM EST Liver transplant status (CMS/HCC) Other usp (current) drug therapy documented in this encounter Results * (ABNORMAL) Cyclosporine (02/22/2022 10:20 AM EST) Cyclosporine 96(L) 100 - 400 ng/mL 02/24/2022 10:47 AM EST [facility] Comment: Cyclosporine therapeutic range: Kidney transplant................... 100-200 ng/mL Heart transplant.................... 100-300 ng/mL Liver transplant.................... 100-300 ng/mL Lung;heart/lung transplant.......... 100-350 ng/mL Test performed by LC-MS/MS at the [facility]. This test was developed and its performance characteristics determined by [facility]. It has not been cleared or approved by the FDA. The laboratory is regulated under CLIA as qualified to perform high-complexity testing. This test is used for clinical purposes. 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 documented in this encounter Additional Health Concerns Assessment Noted Time A fall risk assessment has been complete d for the patient 12/09/2021 7:36 AM EDT A Body Mass Index follow-up plan has been documented for the patient 05/05/2022 10:19 AM EST documented as of this encounter Care Teams Sanitation Tank Washer Relationship Specialty Start Date End Date Ced Al MD [address] [place] [address] PCP - General 08/20/20 11/18/23 Mendoza Johnson DO [address] [place] [address] PCP - General 11/19/23 Sylvia De La Torre, RN CH-TRANSPLANT ADMINISTRATION [address] [place] [address] Surgical Navigator Transplant Surgery 01/11/21 [place] [address] Surgical Navigator Transplant Surgery 01/11/21 Wolf Dubose MD [address] [facility] [place] [address] Surgeon Transplant Surgery 01/11/21 Donovan Zaragoza APRN [address] [place] [address] Referring Physician Transplant Surgery 01/11/21 documented as of this encounter
--- OUTSIDE RECORDS SUMMARY | 2025-01-29 12:03 | XMS_ITS | Encounter Summary ---
Author Organization [facility] Address [address] [place] [address] Care Team Providers Care Software Installation Engineer Name Role Phone Ced Al MD Primary Care Provider + [phone] Sylvia De La Torre RN Unavailable Nyasia Moses Unavailable [phone] Wolf Dubose MD Unavailable [phone] Donovan Zaragoza APRN Unavailable [phone] Mendoza Johnson DO Primary Care Provider [phone] Encounter Details Date Type Department Care Team (Late st Contact Info) Description 12/06/2022 Orders Only External Location [address] [place] [address] Ced Al MD [address] [place] [address] Social History Tobacco Use Types [...] Author No 10/17/2020 3:33 PM EDT Carla aMndujano RN documented in this encounter Plan of Treatment Upcoming Encounters Date Type Department Care Team (Late st Contact Info) Description 01/30/2025 9:20 AM EDT Office Visit [facility] [address] [place] [address] Nisreen Wilkinson, NEWS WRITER [address] [address] documented as of this [...] documented as of this encounter Care Teams Software Installation Engineer Relationship Specialty Start Date End Date Ced Al MD [address] [place] [address] PCP - General 08/20/20 11/18/23 Mendoza Johnson DO [address] [place] [address] PCP - General 11/19/23 Sylvia De La Torre, FREDA CH-TRANSPLANT ADMINISTRATION [address] [place] [address] Surgical Navigator Transplant Surgery 01/11/21 Nyasia [place], [place] [id number] Surgical Navigator Transplant Surgery 01/11/21 Wolf Dubose MD [address] [place] [address] Surgeon Transplant Surgery 01/11/21 Donovan Zaragoza APRN [address] [place] [address] Referring Physician Transplant Surgery 01/11/21 documented as of this encounter
--- OUTSIDE RECORDS SUMMARY | 2025-01-29 12:03 | XMS_ITS | Encounter Summary ---
Author Organization [facility] Address [address] [place] [address] Care Team Providers Care Director Emergency Name Role Phone Ced Al MD Primary Care Provider + [phone] Sylvia De La Torre RN Unavailable [phone] Nyasia Moses Unavailable [phone] Wolf Dubose MD Unavailable [phone] Donovan Zaragoza APRN Unavailable [phone] Mendoza Johnson DO Primary Care Provider [phone] Encounter Details Date Type Department Care Team (Late st Contact Info) Description 03/08/2022 Lab Requisition [facility] [address] [place] [address] Will Bermudez MD [address] [facility] [address] [place] [address] Liver transplant status (CMS/HCC) Social History Tobacco [...] 9:20 AM EDT Office Visit [facility] [address] [place] [address] Nisreen Wilkinson, AUTOMATION APPLICATION ENGINEER [address] [address] documented as of this encounter Procedures Procedure Name Priority Date/Time Associated Diagnosis Comments CYCLOSPORINE LEVEL Routine 03/08/2022 10 :00 AM EST Liver transplant status (CMS/HCC) documented in this encounter Results * Cyclosporine (03/08/2022 10:00 AM EST) Cyclosporine 286 100 - 400 ng/mL 03/09/2022 3:52 PM EST [facility] Comment: Cyclosporine therapeutic range: Kidney transplant................... 100-200 ng/mL Heart transplant.................... 100-300 ng/mL Liver transplant.................... 100-300 ng/mL Lung;heart/lung transplant.......... 100-350 ng/mL Test performed by LC-MS/MS at the [facility]. This test was developed and its performance characteristics determined by [facility]. It has not been cleared or approved by the FDA. The laboratory is regulated under CLIA as qualified to perform high-complexity testing. This test is used for clinical purposes. Blood Venous blood specimen / Unknown 03/08/2022 10:00 AM EST 03/08/2022 12:55 PM EST us Will Bermudez MD LAB BLOOD ORDERABLES Final Res ult [facility] [address] [place] [address] documented in this encounter Visit Diagnoses Diagnosis Liver transplant status (CMS/HCC) documented in this encounter Additional Health Concerns Assessment Noted Time A fall risk assessment has been complete d for the patient 12/09/2021 7:36 AM EDT A Body Mass Index follow-up plan has been documented for the patient 05/05/2022 10:19 AM EST documented as of this encounter Care Teams Director Emergency Relationship Specialty Start Date End Date Ced Al MD [address] [place] [address] PCP - General 08/20/20 11/18/23 Mendoza Johnson DO [address] [place] [address] PCP - General 11/19/23 Sylvia De La Torre, RN CH-TRANSPLANT ADMINISTRATION [address] [place] [address] Surgical Navigator Transplant Surgery 01/11/21 [place] [address] Surgical Navigator Transplant Surgery 01/11/21 Wolf Dubose MD [address] [address] Surgeon Transplant Surgery 01/11/21 Donovan Zaragoza APRN [address] [address] Referring Physician Transplant Surgery 01/11/21 documented as of this encounter
--- OUTSIDE RECORDS SUMMARY | 2025-01-29 12:03 | XMS_ITS | Encounter Summary ---
Author Organization [facility] Address [address] [place] [address] Care Team Providers Care Floral Designer Name Role Phone Ced Al MD Primary Care Provider + [phone] Sylvia De La Torre RN Unavailable +[phone] Nyasia Moses Unavailable [phone] Wolf Dubose MD Unavailable [phone] Donovan Zaragoza APRN Unavailable [phone] Mendoza Johnson DO Primary Care Provider [phone] Encounter Details Date Type Department Care Team (Late st Contact Info) Description 04/22/2022 Orders Only External Location [address] [place] [address] Simeon Saldivar MD [address] [...] Description 01/30/2025 9:20 AM EDT Office Visit [place] [address] [facility] [address] [place] [address] Nisreen Wilkinson, ERIKA [address] [address] documented as of this encounter [...] documented as of this encounter Care Teams Floral Designer Relationship Specialty Start Date End Date Ced Al MD [address] [place] [address] PCP - General 08/20/20 11/18/23 Mendoza Johnson DO [address] [place] [address] PCP - General 11/19/23 Sylvia De La Torre RN [facility] ADMINISTRATION [address] [place], [place] [id number] Surgical Navigator Transplant Surgery 01/11/21 Nyasia Moses [place], [place] [id number] Surgical Navigator Transplant Surgery 01/11/21 Wolf Dubose MD [address] [address] Surgeon Transplant Surgery 01/11/21 Donovan Zaragoza APRN [address] [place] [address] Referring Physician Transplant Surgery 01/11/21 documented as of this encounter
--- OUTSIDE RECORDS SUMMARY | 2025-01-29 12:03 | XMS_ITS | Encounter Summary ---
Author Organization [facility] Address [address] [place] [address] Care Team Providers Care Usability Strategist Name Role Phone Ced Al MD Primary Care Provider + [phone] Sylvia De La Torre RN Unavailable Nyasia Moses Unavailable [phone] Wolf Dubose MD Unavailable [phone] Donovan Zaragoza APRN Unavailable [phone] Mendoza Johnson DO Primary Care Provider [phone] Encounter Details Date Type Department Care Team (Late st Contact Info) Description 11/13/2022 Orders Only External Location [address] [place] [address] Provider, External Social History Tobacco Use Types [...] [facility] [address] [place] [address] Nisreen Wilkinson, BASE DRAW OPERATOR [address] [address] documented as of this encounter [...] documented as of this encounter Care Teams Usability Strategist Relationship Specialty Start Date End Date Ced Al MD [address] [place] [address] PCP - General 08/20/20 11/18/23 Mendoza Johnson DO [address] [place] [address] PCP - General 11/19/23 Sylvia De La Torre RN [facility]PL[facility] ADMINISTRATION [address] [place] [address] Surgical Navigator Transplant Surgery 01/11/21 [place] [address] Surgical Navigator Transplant Surgery 01/11/21 Wolf Dubose MD [address] [address] Surgeon Transplant Surgery 01/11/21 Donovan Zaragoza APRN [address] [place] [address] Referring Physician Transplant Surgery 01/11/21 documented as of this encounter
--- OUTSIDE RECORDS SUMMARY | 2025-01-29 12:03 | XMS_ITS | Encounter Summary ---
Author Organization [facility] Address [address] [facility] [place] [address] Care Team Providers Care Dermatology Technician Name Role Phone Ced Al MD Primary Care Provider + [phone] Sylvia De La Torre RN Unavailable [phone] Nyasia Moses Unavailable [phone] Wolf Dubose MD Unavailable [phone] Donovan Zaragoza APRN Unavailable [phone] Mendoza Johnson DO Primary Care Provider [phone] Encounter Details Date Type Department Care Team (Late st Contact Info) Description 02/08/2022 Lab Requisition [facility] [address] [place] [address] Will Bermudez MD [address] [facility] [address] [place] [address] Liver transplant status (CMS/HCC) Social History Tobacco [...] Description 01/30/2025 9:20 AM EDT Office Visit [facility] [address] [place] [address] Nisreen Wilkinson, DISC INSPECTOR [address] [address] documented as of this encounter Procedures Procedure Name Priority Date/Time Associated Diagnosis Comments CYCLOSPORINE LEVEL Routine 02/08/2022 10 :00 AM EDT Liver transplant status (CMS/HCC) documented in this encounter Results * Cyclosporine (02/08/2022 10:00 AM EDT) Cyclosporine 110 100 - 400 ng/mL 02/09/2022 2:08 PM EDT [facility] Comment: Cyclosporine therapeutic range: Kidney transplant................... 100-200 ng/mL Heart transplant.................... 100-300 ng/mL Liver transplant.................... 100-300 ng/mL Lung;heart/lung transplant.......... 100-350 ng/mL Test performed by LC-MS/MS at the [facility]. This test was developed and its performance characteristics determined by [facility]. It has not been cleared or approved by the FDA. The laboratory is regulated under CLIA as qualified to perform high-complexity testing. This test is used for clinical purposes. Blood Venous blood specimen / Unknown 02/08/2022 10:00 AM EDT 02/08/2022 2:27 PM EDT us Will Bermudez MD LAB BLOOD ORDERABLES Final Res ult [facility] [address] [place] [address] documented in this encounter Visit Diagnoses Diagnosis Liver transplant status (CMS/HCC) documented in this encounter Additional Health Concerns Assessment Noted Time A fall risk assessment has been complete d for the patient 12/09/2021 7:36 AM EDT A Body Mass Index follow-up plan has been documented for the patient 05/05/2022 10:19 AM EST documented as of this encounter Care Teams Dermatology Technician Relationship Specialty Start Date End Date Ced Al MD [address] [place] [address] PCP - General 08/20/20 11/18/23 Mendoza Johnson DO [address] [place] [address] PCP - General 11/19/23 Sylvia De La Torre RN CH[facility]TRANSPLANT ADMINISTRATION [address] [place] [address] Surgical Navigator Transplant Surgery 01/11/21 [place] [address] Surgical Navigator Transplant Surgery 01/11/21 Wolf Dubose MD [address] [address] Surgeon Transplant Surgery 01/11/21 Donovan Zaragoza APRN [address] [address] Referring Physician Transplant Surgery 01/11/21 documented as of this encounter
--- OUTSIDE RECORDS SUMMARY | 2025-01-29 12:04 | XMS_ITS | Encounter Summary ---
Author Organization [facility] Address [address] [place] [address] Care Team Providers Care Supervisor Crack Off Name Role Phone Ced Al MD Primary Care Provider + [phone] Sylvia De La Torre RN Unavailable [phone] Nyasia Moses Unavailable [phone] Wolf Dubose MD Unavailable [phone] Donovan Zaragoza APRN Unavailable [phone] Mendoza Johnson DO Primary Care Provider [phone] Encounter Details Date Type Department Care Team (Late st Contact Info) Description 12/16/2020 Lab Requisition [facility] [address] [place] [address] Dot Monge Encounter for general adult medical [...] 9:20 AM EDT Office Visit [facility] [address] [place] [address] Nisreen Wilkinson, ENOLOGIST [address] [address] documented as of this encounter Procedures Procedure Name Priority Date/Time Associated Diagnosis Comments CYCLOSPORINE LEVEL Routine 12/16/2020 7: 16 AM EDT Encounter for general adult medical examination without abnormal findings documented in this encounter Results * (ABNORMAL) Cyclosporine (12/16/2020 7:16 AM EDT) Cyclosporine 84(L) 100 - 400 ng/mL 12/16/2020 1:40 PM EDT [facility] Comment: Cyclosporine therapeutic range: Kidney transplant................... 100-200 ng/mL Heart transplant.................... 100-300 ng/mL Liver transplant.................... 100-300 ng/mL Lung;heart/lung transplant.......... 100-350 ng/mL Test performed by LC-MS/MS at the [facility]. This test was developed and its performance characteristics determined by [facility]. It has not been cleared or approved by the FDA. The laboratory is regulated under CLIA as qualified to perform high-complexity testing. This test is used for clinical purposes. Blood Venous blood specimen / Unknown 12/16/2020 7:16 AM EDT 12/16/2020 10:18 AM EDT us Dot [facility] LAB BLOOD ORDERABLES Final Resul t [facility] [address] [place] [address] documented in this encounter Visit Diagnoses Diagnosis Encounter for general adult medical examination without abnormal findings documented in this encounter Additional Health Concerns Assessment Noted Time A fall risk assessment has been complete d for the patient 11/16/2020 8:39 AM EDT documented as of this encounter Care Teams Supervisor Crack Off Relationship Specialty Start Date End Date Ced Al MD [address] [place] [address] PCP - General 08/20/20 11/18/23 Mendoza Johnson DO [address] [place] [address] PCP - General 11/19/23 Sylvia De La Torre RN [facility]TRANSPLANT ADMINISTRATION [address] [place] [address] Surgical Navigator Transplant Surgery 01/11/21 [place] [address] Surgical Navigator Transplant Surgery 01/11/21 Wolf Dubose MD [address] [address] Surgeon Transplant Surgery 01/11/21 Donovan Zaragoza APRN [address] [address] Referring Physician Transplant Surgery 01/11/21 documented as of this encounter
--- OUTSIDE RECORDS SUMMARY | 2025-01-29 12:04 | XMS_ITS | Encounter Summary ---
Author Organization [facility] Address [address] [place] [address] Care Team Providers Care Propeller Mechanic Name Role Phone Ced Al MD Primary Care Provider + [phone] Sylvia De La Torre RN Unavailable [phone] Nyasia Moses Unavailable [phone] Wolf Dubose MD Unavailable [phone] Donovan Zaragoza APRN Unavailable [phone] Mendoza Johnson DO Primary Care Provider [phone] Encounter Details Date Type Department Care Team (Late st Contact Info) Description 2020 Lab Requisition [facility] [address] [place] [address] Dot Monge Encounter for general adult medical [...] Description 01/30/2025 9:20 AM EDT Office Visit [facility] [address] [place] [address] Nisreen Wilkinson, DOUBLE BASS PLAYER [address] [address] documented as of this encounter Procedures Procedure Name Priority Date/Time Associated Diagnosis Comments CYCLOSPORINE LEVEL Routine 2020 5: 20 AM EDT Encounter for general adult medical examination without abnormal findings documented in this encounter Results * Cyclosporine (2020 5:20 AM EDT) Cyclosporine 161 100 - 400 ng/mL 2020 4:46 PM EDT [facility] Comment: Cyclosporine therapeutic range: Kidney transplant................... 100-200 ng/mL Heart transplant.................... 100-300 ng/mL Liver transplant.................... 100-300 ng/mL Lung;heart/lung transplant.......... 100-350 ng/mL Test performed by LC-MS/MS at the [facility]. This test was developed and its performance characteristics determined by [facility]. It has not been cleared or approved by the FDA. The laboratory is regulated under CLIA as qualified to perform high-complexity testing. This test is used for clinical purposes. Blood Venous blood specimen / Unknown 2020 5:20 AM EDT 2020 10:06 AM EDT us Dot [facility] LAB BLOOD ORDERABLES Final Resul t [facility] [address] [place] [address] documented in this encounter Visit Diagnoses Diagnosis Encounter for general adult medical examination without abnormal findings documented in this encounter Additional Health Concerns Assessment Noted Time A fall risk assessment has been complete d for the patient 11/16/2020 8:39 AM EDT documented as of this encounter Care Teams Propeller Mechanic Relationship Specialty Start Date End Date Ced Al MD [address] [place] [address] PCP - General 08/20/20 11/18/23 Mendoza Johnson DO [address] [place] [address] PCP - General 11/19/23 Sylvia De La Torre RN CH-TRANSPLANT ADMINISTRATION [address] [place] [phone] Surgical Navigator Transplant Surgery 01/11/21 Nyasia Moses [place] [id number] Surgical Navigator Transplant Surgery 01/11/21 Wolf Dubose MD [address] [place] [address] Surgeon Transplant Surgery 01/11/21 Donovan Zaragoza APRN [address] [place] [address] Referring Physician Transplant Surgery 01/11/21 documented as of this encounter
--- OUTSIDE RECORDS SUMMARY | 2025-01-29 12:04 | XMS_ITS | Encounter Summary ---
Author Organization [facility] Address [address] [place] [address] Care Team Providers Care Change Analyst Name Role Phone Ced Al MD Primary Care Provider + [phone] Sylvia De La Torre RN Unavailable [phone] Nyasia Moses Unavailable [phone] Wolf Dubose MD Unavailable [phone] Donovan Zaragoza APRN Unavailable [phone] Mendoza Johnson DO Primary Care Provider [phone] Encounter Details Date Type Department Care Team (Late st Contact Info) Description 11/30/2021 Lab Requisition [facility] [address] [place] [address] Will Bermudez MD [address] [facility] [address] [place] [address] Liver transplant status (CMS/HCC); 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 It has not been cleared or approved by the FDA. The laboratory is regulated under CLIA as qualified to perform high-complexity testing. This test is used for clinical purposes. Blood Venous blood specimen / Unknown 11/30/2021 9:52 AM EDT 11/30/2021 1:28 PM EDT us Will Bermudez MD LAB BLOOD ORDERABLES Final Res ult [facility] [address] [place] [address] documented in this encounter Visit Diagnoses Diagnosis [...] documented as of this encounter Care Teams Change Analyst Relationship Specialty Start Date End Date Ced Al MD [address] [place] [address] PCP - General 08/20/20 11/18/23 Mendoza Johnson DO [address] [place] [address] PCP - General 11/19/23 Sylvia De La Torre, RN CH[facility]TRANSPLANT ADMINISTRATION [address] [place] [address] Surgical Navigator Transplant Surgery 01/11/21 [place] [address] Surgical Navigator Transplant Surgery 01/11/21 Wolf Dubose MD [address] [place] [address] Surgeon Transplant Surgery 01/11/21 Donovan Zaragoza APRN [address] [place] [address] Referring Physician Transplant Surgery 01/11/21 documented as of this encounter
--- OUTSIDE RECORDS SUMMARY | 2025-01-29 12:04 | XMS_ITS | Encounter Summary ---
Author Organization [facility] Address [address] [place] [address] Care Team Providers Care Electrician Ship Name Role Phone Ced Al MD Primary Care Provider + [phone] Sylvia De La Torre RN Unavailable [phone] Nyasia Moses Unavailable [phone] Wolf Dubose MD Unavailable [phone] Donovna Zaragoza APRN Unavailable [phone] Mendoza Johnson DO Primary Care Provider [phone] Encounter Details Date Type Department Care Team (Late st Contact Info) Description 12/17/2020 Lab Requisition [facility] [address] [place] [address] Dot Monge Encounter for general adult medical [...] Description 01/30/2025 9:20 AM EDT Office Visit [place] [id number] [facility] [address] [place] [address] Nisreen Wilkinson, COMMERCIAL KITCHEN SERVICE TECHNICIAN [address] [address] documented as of this encounter [...] developed and its performance characteristics determined by [facility]. It has not been cleared or approved by the FDA. The laboratory is regulated under CLIA as qualified to perform high-complexity testing. This test is used for clinical purposes. Blood Venous blood specimen / Unknown 12/17/2020 5:27 AM EDT 12/17/2020 8:54 AM EDT Dot [facility] BLOOD ORDERABLES Final Resul t [facility] [address] [place] [address] documented in this encounter Visit Diagnoses Diagnosis Encounter for general adult medical examination without abnormal findings documented in this encounter Additional Health Concerns Assessment Noted Time A fall risk assessment has been complete d for the patient 11/16/2020 8:39 AM EDT documented as of this encounter Care Teams Electrician Ship Relationship Specialty Start Date End Date Ced Al MD [address] [place] [address] PCP - General 08/20/20 11/18/23 Mendoza Johnson DO [address] [place] [address] PCP - General 11/19/23 Sylvia De La Torre RN CH-TRANSPLANT ADMINISTRATION [address] [place] [address] Surgical Navigator Transplant Surgery 01/11/21 [place] [address] Surgical Navigator Transplant Surgery 01/11/21 Wolf Dubose MD [address] [place] [address] Surgeon Transplant Surgery 01/11/21 Donovan Zaragoza APRN [address] [place] [address] Referring Physician Transplant Surgery 01/11/21 documented as of this encounter
--- OUTSIDE RECORDS SUMMARY | 2025-01-29 12:04 | XMS_ITS | Encounter Summary ---
Author Organization [facility] Address [address] [place] [address] Care Team Providers Care Reading Efficiency Course Director Name Role Phone Ced Al MD Primary Care Provider + [phone] Sylvia De La Torre RN Unavailable [phone] Nyasia Moses Unavailable [phone] Wolf Dubose MD Unavailable [phone] Donovan Zaragoza APRN Unavailable [phone] Mendoza Johnson DO Primary Care Provider [phone] Encounter Details Date Type Department Care Team (Late st Contact Info) Description 11/16/2021 Lab Requisition [facility] [address] [place] [address] Will Bermudez MD [address] [facility] [address] [place] [address] Liver transplant status (CMS/HCC); Other manager long term care (current) drug therapy Social [...] [facility] [address] [place] [address] Nisreen Wilkinson, LIVE AMMUNITION INSPECTOR [address] [address] documented as of this encounter Procedures Procedure Name Priority Date/Time Associated Diagnosis Comments CYCLOSPORINE LEVEL Routine 11/16/2021 9: 40 AM EDT Liver transplant status (CMS/HCC) Other custodial (current) drug therapy documented in this encounter Results * Cyclosporine (11/16/2021 9:40 AM EDT) Cyclosporine 118 100 - 400 ng/mL 11/17/2021 9:49 AM EDT [facility] Comment: Cyclosporine therapeutic range: Kidney transplant................... 100-200 ng/mL Heart transplant.................... 100-300 ng/mL Liver transplant.................... 100-300 ng/mL Lung;heart/lung transplant.......... 100-350 ng/mL Test performed by LC-MS/MS at the [facility]. This test was developed and its performance characteristics determined by [facility]. It has not been cleared or approved by the FDA. The laboratory is regulated under CLIA as qualified to perform high-complexity testing. This test is used for clinical purposes. Blood Venous blood specimen / Unknown 11/16/2021 9:40 AM EDT 11/16/2021 3:08 PM EDT us Will Bermudez MD LAB BLOOD ORDERABLES Final Res ult [facility] [address] [place] [id number] documented in this encounter Visit Diagnoses Diagnosis Liver transplant status (CMS/HCC) Other manager long term care (current) drug therapy documented in this encounter Additional Health Concerns Assessment Noted Time A fall risk assessment has been complete d for the patient 06/08/2021 8:58 AM EST A Body Mass Index follow-up plan has been documented for the patient 05/05/2022 10:19 AM EST documented as of this encounter Care Teams Reading Efficiency Course Director Relationship Specialty Start Date End Date Ced Al MD [address] [place] [address] PCP - General 08/20/20 11/18/23 Mendoza Johnson DO [address] [place] [address] PCP - General 11/19/23 Sylvia De La Torre, RN CH-TRANSPLANT ADMINISTRATION [address] [place] [address] Surgical Navigator Transplant Surgery 01/11/21 Josu[address] [place] [address] Surgical Navigator Transplant Surgery 01/11/21 Wolf Dubose MD [address] [address] Surgeon Transplant Surgery 01/11/21 Donovan Zaragoza APRN [address] [address] Referring Physician Transplant Surgery 01/11/21 documented as of this encounter
--- OUTSIDE RECORDS SUMMARY | 2025-01-29 12:04 | XMS_ITS | Encounter Summary ---
Author Organization [facility] Address [address] [place] [address] Care Team Providers Care Battery Hand Name Role Phone Ced Al MD Primary Care Provider + [phone] Sylvia De La Torre RN Unavailable [phone] Nyasia Moses Unavailable [phone] Wolf Dubose MD Unavailable [phone] Donovan Zaragoza APRN Unavailable [phone] Mendoza Johnson DO Primary Care Provider [phone] Encounter Details Date Type Department Care Team (Late st Contact Info) Description 12/21/2021 Lab Requisition [facility] [address] [place] [address] Will Bermudez MD [address] [facility] [address] [place] [address] Encounter for general adult medical examination without [...] Description 01/30/2025 9:20 AM EDT Office Visit [facility] [address] [place] [address] Nisreen Wilkinson, ERIKA [address] [address] documented as of this encounter Procedures Procedure Name Priority Date/Time Associated Diagnosis Comments CYCLOSPORINE LEVEL Routine 12/21/2021 9: 55 AM EDT Encounter for general adult medical examination without abnormal findings documented in this encounter Results * (ABNORMAL) Cyclosporine (12/21/2021 9:55 AM EDT) Cyclosporine 591(HH) 100 - 400 ng/mL 12/22/2021 10:25 AM EDT [facility] Comment: Cyclosporine therapeutic range: Kidney transplant................... 100-200 ng/mL Heart transplant.................... 100-300 ng/mL Liver transplant.................... 100-300 ng/mL Lung;heart/lung transplant.......... 100-350 ng/mL Test performed by LC-MS/MS at the [facility]. This test was developed and its performance characteristics determined by [facility]. It has not been cleared or approved by the FDA. The laboratory is regulated under CLIA as qualified to perform high-complexity testing. This test is used for clinical purposes. Blood Venous blood specimen / Unknown 12/21/2021 9:55 AM EDT 12/21/2021 12:43 PM EDT us Will Bermudez MD LAB BLOOD ORDERABLES Final Res ult Performing Organization Address City/State/[facility] Co de Phone Number [facility] [address] [place] [address] documented in this encounter Visit Diagnoses Diagnosis [...] documented as of this encounter Care Teams Battery Hand Relationship Specialty Start Date End Date Ced Al MD [address] [place] [address] PCP - General 08/20/20 11/18/23 Mendoza Johnson DO [address] [place] [address] PCP - General 11/19/23 Sylvia De La Torre, RN CH-TRANSPLANT ADMINISTRATION [address] [place] [address] Surgical Navigator Transplant Surgery 01/11/21 [place] [address] Surgical Navigator Transplant Surgery 01/11/21 Wolf Dubose MD [address] [address] Surgeon Transplant Surgery 01/11/21 Donovan Zaragoza APRN [address] [address] Referring Physician Transplant Surgery 01/11/21 documented as of this encounter
--- OUTSIDE RECORDS SUMMARY | 2025-01-29 12:04 | XMS_ITS | Encounter Summary ---
Author Organization [facility] Address [address] [place] [address] Care Team Providers Care Form Setter Helper Name Role Phone eCd Al MD Primary Care Provider + [phone] Sylvia De La Torre RN Unavailable [phone] Nyasia Moses Unavailable [phone] Wolf Dubose MD Unavailable [phone] Donovan Zaragoza APRN Unavailable [phone] Mendoza Johnson DO Primary Care Provider [phone] Encounter Details Date Type Department Care Team (Late st Contact Info) Description 01/04/2022 Lab Requisition [facility] [address] [place] [address] Will Bermudez MD [address] [facility] [address] [place] [id number] Liver transplant status (CMS/HCC); Other director long [...] Description 01/30/2025 9:20 AM EDT Office Visit [facility] [address] [place] [address] Nisreen Wilkinosn, APPAREL SALES ASSOCIATE [address] [address] documented as of this encounter Procedures Procedure Name Priority Date/Time Associated Diagnosis Comments CYCLOSPORINE LEVEL Routine 01/04/2022 10 :04 AM EDT Liver transplant status (CMS/HCC) Other director long term care (current) drug therapy documented in this encounter Results * Cyclosporine (01/04/2022 10:04 AM EDT) Cyclosporine 157 100 - 400 ng/mL 01/05/2022 3:05 PM EDT [facility] Comment: Cyclosporine therapeutic range: Kidney transplant................... 100-200 ng/mL Heart transplant.................... 100-300 ng/mL Liver transplant.................... 100-300 ng/mL Lung;heart/lung transplant.......... 100-350 ng/mL Test performed by LC-MS/MS at the [facility]. This test was developed and its performance characteristics determined by [facility]. It has not been cleared or approved by the FDA. The laboratory is regulated under CLIA as qualified to perform high-complexity testing. This test is used for clinical purposes. Blood Venous blood specimen / Unknown 01/04/2022 10:04 AM EDT 01/04/2022 5:11 PM EDT us Will Bermudez MD LAB BLOOD ORDERABLES Final Res ult Performing Organization Address City/State/[facility] Co de Phone Number [facility] [address] [place] [address] documented in this encounter Visit Diagnoses Diagnosis [...] documented as of this encounter Care Teams Form Setter Helper Relationship Specialty Start Date End Date Ced Al MD [address] [place] [address] PCP - General 08/20/20 11/18/23 Mendoza Johnson DO [address] [place] [address] PCP - General 11/19/23 Sylvia De La Torre RN [facility] [address] [place] [address] Surgical Navigator Transplant Surgery 01/11/21 [place] [address] Surgical Navigator Transplant Surgery 01/11/21 Wolf Dubose MD [address] [place] [address] [address] Surgeon Transplant Surgery 01/11/21 Donovan Zaragoza APRN [address] [address] Referring Physician Transplant Surgery 01/11/21 documented as of this encounter
--- OUTSIDE RECORDS SUMMARY | 2025-01-29 12:05 | XMS_ITS | Encounter Summary ---
Author Organization [facility] Address [address] [place] [place] [address] Care Team Providers Care Electrician Name Role Phone Ced Al MD Primary Care Provider + [phone] Sylvia De La Torre RN Unavailable [phone] Nyasia Moses Unavailable [phone] Wolf Dubose MD Unavailable [phone] Donovan Zaragoza APRN Unavailable [phone] Mendoza Johnson DO Primary Care Provider [phone] Encounter Details Date Type Department Care Team (Late st Contact Info) Description 11/02/2021 Lab Requisition [facility] [address] [place] [address] Will Bermudez MD [address] [facility] [address] [place] [address] Liver transplant status (CMS/HCC) Social History Tobacco [...] Description 01/30/2025 9:20 AM EDT Office Visit [facility] [address] [place] [address] Nisreen Wilkinson, PRODUCTION TRUCK DRIVER [address] [address] documented as of this encounter Procedures Procedure Name Priority Date/Time Associated Diagnosis Comments CYCLOSPORINE LEVEL Routine 11/02/2021 9: 40 AM EDT Liver transplant status (CMS/HCC) documented in this encounter Results * Cyclosporine (11/02/2021 9:40 AM EDT) Cyclosporine 130 100 - 400 ng/mL 11/03/2021 2:30 PM EDT [facility] Comment: Cyclosporine therapeutic range: Kidney transplant................... 100-200 ng/mL Heart transplant.................... 100-300 ng/mL Liver transplant.................... 100-300 ng/mL Lung;heart/lung transplant.......... 100-350 ng/mL Test performed by LC-MS/MS at the [facility]. This test was developed and its performance characteristics determined by [facility]. It has not been cleared or approved by the FDA. The laboratory is regulated under CLIA as qualified to perform high-complexity testing. This test is used for clinical purposes. Blood Venous blood specimen / Unknown 11/02/2021 9:40 AM EDT 11/02/2021 2:44 PM EDT us Will Bermudez MD LAB BLOOD ORDERABLES Final Res ult [facility] [address] [place] [address] documented in this encounter Visit Diagnoses Diagnosis Liver transplant status (CMS/HCC) documented in this encounter Additional Health Concerns Assessment Noted Time A fall risk assessment has been complete d for the patient 06/08/2021 8:58 AM EST A Body Mass Index follow-up plan has been documented for the patient 05/05/2022 10:19 AM EST documented as of this encounter Care Teams Electrician Relationship Specialty Start Date End Date Ced Al MD [address] [place] [address] PCP - General 08/20/20 11/18/23 Mendoza Johnson DO [address] [place] [address] PCP - General 11/19/23 Sylvia De La Torre RN [facility]TRANSPLANT ADMINISTRATION [address] [place] [address] Surgical Navigator Transplant Surgery 01/11/21 [place] [address] Surgical Navigator Transplant Surgery 01/11/21 Wolf Dubose MD [address] [place] [address] Surgeon Transplant Surgery 01/11/21 Donovan Zaragoza APRN [address] [place] [address] Referring Physician Transplant Surgery 01/11/21 documented as of this encounter
--- OUTSIDE RECORDS SUMMARY | 2025-01-29 12:05 | XMS_ITS | Encounter Summary ---
Author Organization [facility] Address [address] [place] [address] Care Team Providers Care Commercial Front Load Driver Name Role Phone Ced Al MD Primary Care Provider + [phone] Sylvia De La Torre RN Unavailable [phone] Nyasia Moses Unavailable [phone] Wolf Dubose MD Unavailable [phone] Donovan Zaragoza APRN Unavailable [phone] Mendoza Johnson DO Primary Care Provider [phone] Encounter Details Date Type Department Care Team (Late st Contact Info) Description 10/19/2021 Lab Requisition [facility] [address] [place] [address] Will Bermudez MD [address] [facility] [address] [place] [address] Liver transplant status (CMS/HCC); 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 Social History Tobacco Use [...] Description 01/30/2025 9:20 AM EDT Office Visit [facility] [address] [place] [address] Nisreen Wilkinson, DRAG SAWYER [address] [address] documented as of this encounter Procedures Procedure Name Priority Date/Time Associated Diagnosis Comments CYCLOSPORINE LEVEL Routine 10/18/2021 9: 30 AM EDT Liver transplant status (CMS/HCC) Other nursing home (current) drug therapy documented in this encounter Results * (ABNORMAL) Cyclosporine (10/18/2021 9:30 AM EDT) Cyclosporine 841(HH) 100 - 400 ng/mL 10/20/2021 12:49 PM EDT [facility] Comment: Cyclosporine therapeutic range: Kidney transplant................... 100-200 ng/mL Heart transplant.................... 100-300 ng/mL Liver transplant.................... 100-300 ng/mL Lung;heart/lung transplant.......... 100-350 ng/mL Test performed by LC-MS/MS at the [facility]. This test was developed and its performance characteristics determined by [facility]. It has not been cleared or approved by the FDA. The laboratory is regulated under CLIA as qualified to perform high-complexity testing. This test is used for clinical purposes. 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 documented in this encounter Additional Health Concerns Assessment Noted Time A fall risk assessment has been complete d for the patient 06/08/2021 8:58 AM EST A Body Mass Index follow-up plan has been documented for the patient 05/05/2022 10:19 AM EST documented as of this encounter Care Teams Commercial Front Load Driver Relationship Specialty Start Date End Date Ced Al MD [address] [place] [address] PCP - General 08/20/20 11/18/23 Mendoza Johnson DO [address] [place] [address] PCP - General 11/19/23 Sylvia De La Torre, RN [facility]TRANSPLANT ADMINISTRATION [address] [place] [address] Surgical Navigator Transplant Surgery 01/11/21 [place] [address] Surgical Navigator Transplant Surgery 01/11/21 Wolf Dubose MD [address] [place] [address] Surgeon Transplant Surgery 01/11/21 Donovan Zaragoza APRN [address] [place] [address] Referring Physician Transplant Surgery 01/11/21 documented as of this encounter
--- OUTSIDE RECORDS SUMMARY | 2025-01-29 12:05 | XMS_ITS | Encounter Summary ---
Author Organization [facility] Address [address] [place] [address] Care Team Providers Care Auto Hauler Name Role Phone Ced Al MD Primary Care Provider + [phone] Sylvia De La Torre RN Unavailable [phone] Nyasia Moses Unavailable [phone] Wolf Dubose MD Unavailable [phone] Donovan Zaragoza APRN Unavailable [phone] Mendoza Johnson DO Primary Care Provider [phone] Encounter Details Date Type Department Care Team (Late st Contact Info) Description 09/21/2021 Lab Requisition [facility] [address] [place] [address] Will Bermudez MD [address] [facility] [address] [place] [address] Liver transplant status (CMS/HCC); 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 Social History Tobacco Use [...] [facility] [address] [place] [address] Nisreen Wilkinson, FOREIGN LAW CONSULTANT [address] [address] documented as of this encounter Procedures Procedure Name Priority Date/Time Associated Diagnosis Comments CYCLOSPORINE LEVEL Routine 09/21/2021 10 :45 AM EDT Liver transplant status (CMS/HCC) Other prison (current) drug therapy documented in this encounter Results * Cyclosporine (09/21/2021 10:45 AM EDT) Cyclosporine 280 100 - 400 ng/mL 09/22/2021 1:01 PM EDT [facility] Comment: Cyclosporine therapeutic range: Kidney transplant................... 100-200 ng/mL Heart transplant.................... 100-300 ng/mL Liver transplant.................... 100-300 ng/mL Lung;heart/lung transplant.......... 100-350 ng/mL Test performed by LC-MS/MS at the [facility]. This test was developed and its performance characteristics determined by [facility]. It has not been cleared or approved by the FDA. The laboratory is regulated under CLIA as qualified to perform high-complexity testing. This test is used for clinical purposes. 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 documented in this encounter Additional Health Concerns Assessment Noted Time A fall risk assessment has been complete d for the patient 06/08/2021 8:58 AM EST A Body Mass Index follow-up plan has been documented for the patient 05/05/2022 10:19 AM EST documented as of this encounter Care Teams Auto Hauler Relationship Specialty Start Date End Date Ced Al MD [address] [place] [address] PCP - General 08/20/20 11/18/23 Mendoza Johnson DO [address] [place] [address] PCP - General 11/19/23 Sylvia De La Torre, RN [facility]TRANSPLANT ADMINISTRATION [address] [place] [address] Surgical Navigator Transplant Surgery 01/11/21 [address] [place] [address] Surgical Navigator Transplant Surgery 01/11/21 Wolf Dubose MD [address] [address] Surgeon Transplant Surgery 01/11/21 Donovan Zaragoza APRN [address] [address] Referring Physician Transplant Surgery 01/11/21 documented as of this encounter
--- OUTSIDE RECORDS SUMMARY | 2025-01-29 12:05 | XMS_ITS | Encounter Summary ---
Author Organization [facility] Address [address] [place] [address] Care Team Providers Care Soda Flaker Name Role Phone Ced Al MD Primary Care Provider + [phone] Sylvia De La Torre RN Unavailable [phone] Nyasia Moses Unavailable [phone] Wolf Dubose MD Unavailable [phone] Donovan Zaragoza APRN Unavailable [phone] Mendoza Johnson DO Primary Care Provider [phone] Encounter Details Date Type Department Care Team (Late st Contact Info) Description 10/26/2021 Lab Requisition [facility] [address] [place] [address] Will Bermudez MD [address] [facility] [address] [place] [address] Encounter for general adult medical examination without [...] [facility] [address] [place] [address] Nisreen Wilkinson, GIS SOFTWARE ENGINEER [address] [address] documented as of this encounter Procedures Procedure Name Priority Date/Time Associated Diagnosis Comments CYCLOSPORINE LEVEL Routine 10/26/2021 10 :00 AM EDT Encounter for general adult medical examination without abnormal findings documented in this encounter Results * Cyclosporine (10/26/2021 10:00 AM EDT) Cyclosporine 158 100 - 400 ng/mL 10/27/2021 1:37 PM EDT [facility] Comment: Cyclosporine therapeutic range: Kidney transplant................... 100-200 ng/mL Heart transplant.................... 100-300 ng/mL Liver transplant.................... 100-300 ng/mL Lung;heart/lung transplant.......... 100-350 ng/mL Test performed by LC-MS/MS at the [facility]. This test was developed and its performance characteristics determined by [facility]. It has not been cleared or approved by the FDA. The laboratory is regulated under CLIA as qualified to perform high-complexity testing. This test is used for clinical purposes. Blood Venous blood specimen / Unknown 10/26/2021 10:00 AM EDT 10/26/2021 3:13 PM EDT us Will Bermudez MD LAB BLOOD ORDERABLES Final Res ult [facility] [address] [place] [address] documented in this encounter Visit Diagnoses Diagnosis [...] documented as of this encounter Care Teams Soda Flaker Relationship Specialty Start Date End Date Ced Al MD [address] [place] [address] PCP - General 08/20/20 11/18/23 Mendoza Johnson DO [address] [place] [address] PCP - General 11/19/23 Sylvia De La Torre, RN [facility]TRANSPLANT ADMINISTRATION [address] [place] [address] Surgical Navigator Transplant Surgery 01/11/21 [place] [address] Surgical Navigator Transplant Surgery 01/11/21 Wolf Dubose MD [address] [address] Surgeon Transplant Surgery 01/11/21 Donovan Zaragoza APRN [address] [place] [address] Referring Physician Transplant Surgery 01/11/21 documented as of this encounter
--- OUTSIDE RECORDS SUMMARY | 2025-01-29 12:05 | XMS_ITS | Encounter Summary ---
Author Organization [facility] Address [address] [place] [address] Care Team Providers Care Surveyor Helper Name Role Phone Ced Al MD Primary Care Provider + [phone] Sylvia De La Torre RN Unavailable [phone] Nyasia Moses Unavailable [phone] Wolf Dubose MD Unavailable [phone] Donovan Zaragoza APRN Unavailable [phone] Mendoza Johnson DO Primary Care Provider [phone] Encounter Details Date Type Department Care Team (Late st Contact Info) Description 10/05/2021 Lab Requisition [facility] [address] [place] [address] Will Bermudez MD [address] [facility] [address] [place] [address] Encounter for general adult medical examination without [...] [facility] [address] [place] [address] Nisreen Wilkinson, CAGE FIGHTER [address] [address] documented as of this encounter Procedures Procedure Name Priority Date/Time Associated Diagnosis Comments CYCLOSPORINE LEVEL Routine 10/05/2021 10 :00 AM EDT Encounter for general adult medical examination without abnormal findings documented in this encounter Results * Cyclosporine (10/05/2021 10:00 AM EDT) Cyclosporine 335 100 - 400 ng/mL 10/06/2021 1:55 PM EDT [facility] Comment: Cyclosporine therapeutic range: Kidney transplant................... 100-200 ng/mL Heart transplant.................... 100-300 ng/mL Liver transplant.................... 100-300 ng/mL Lung;heart/lung transplant.......... 100-350 ng/mL Test performed by LC-MS/MS at the [facility]. This test was developed and its performance characteristics determined by [facility]. It has not been cleared or approved by the FDA. The laboratory is regulated under CLIA as qualified to perform high-complexity testing. This test is used for clinical purposes. Blood Venous blood specimen / Unknown 10/05/2021 10:00 AM EDT 10/05/2021 1:31 PM EDT us Will Bermudez MD LAB BLOOD ORDERABLES Final Res ult [facility] [address] [place] [address] documented in this encounter Visit Diagnoses Diagnosis [...] documented as of this encounter Care Teams Surveyor Helper Relationship Specialty Start Date End Date Ced Al MD [address] [place], [place] [id number] PCP - General 08/20/20 11/18/23 Mendoza Johnson DO [address] [place] [address] PCP - General 11/19/23 Sylvia De La Torre RN CH-TRANSPLANT ADMINISTRATION [address] [place] [address] Surgical Navigator Transplant Surgery 01/11/21 [place] [address] Surgical Navigator Transplant Surgery 01/11/21 Wolf Dubose MD [address] [place] [address] Surgeon Transplant Surgery 01/11/21 Donovan Zaragoza APRN [address] [place] [address] Referring Physician Transplant Surgery 01/11/21 documented as of this encounter
--- OUTSIDE RECORDS SUMMARY | 2025-01-29 12:05 | XMS_ITS | Encounter Summary ---
Author Organization [facility] Address [address] [place] [address] Care Team Providers Care Junior Financial Analyst Name Role Phone Ced Al MD Primary Care Provider + [phone] Sylvia De La Torre RN Unavailable [phone] Nyasia Moses Unavailable [phone] Wolf Dubose MD Unavailable [phone] Donovan Zaragoza SKIN LAP BONDER Unavailable [phone] Mendoza Johnson DO Primary Care Provider [phone] Encounter Details Date Type Department Care Team (Late st Contact Info) Description 11/09/2021 Lab Requisition [facility] [address] [place] [address] Karla Kate, SKIN LAP BONDER [address] [facility] [address] [place] [address] Liver transplant status (CMS/HCC) Social History Tobacco [...] [facility] [address] [place] [address] Nisreen Wilkinson, SKIN LAP BONDER [address] [address] documented as of this encounter Procedures Procedure Name Priority Date/Time Associated Diagnosis Comments CYCLOSPORINE LEVEL Routine 11/09/2021 9: 20 AM EDT Liver transplant status (CMS/HCC) documented in this encounter Results * (ABNORMAL) Cyclosporine (11/09/2021 9:20 AM EDT) Cyclosporine 83(L) 100 - 400 ng/mL 11/10/2021 12:31 PM EDT [facility] Comment: Cyclosporine therapeutic range: Kidney transplant................... 100-200 ng/mL Heart transplant.................... 100-300 ng/mL Liver transplant.................... 100-300 ng/mL Lung;heart/lung transplant.......... 100-350 ng/mL Test performed by LC-MS/MS at the [facility]. This test was developed and its performance characteristics determined by [facility]. It has not been cleared or approved by the FDA. The laboratory is regulated under CLIA as qualified to perform high-complexity testing. This test is used for clinical purposes. Blood Venous blood specimen / Unknown 11/09/2021 9:20 AM EDT 11/09/2021 7:18 PM EDT us Karla Kate APRN LAB BLOOD ORDERABLES Final R esult Performing Organization Address City/State/[facility] Co de Phone Number [facility] [address] [place] [address] documented in this encounter Visit Diagnoses Diagnosis Liver transplant status (CMS/HCC) documented in this encounter Additional Health Concerns Assessment Noted Time A fall risk assessment has been complete d for the patient 06/08/2021 8:58 AM EST A Body Mass Index follow-up plan has been documented for the patient 05/05/2022 10:19 AM EST documented as of this encounter Care Teams Junior Financial Analyst Relationship Specialty Start Date End Date Ced Al MD [address] [place] [address] PCP - General 08/20/20 11/18/23 Mendoza Johnson DO [address] [place] [address] PCP - General 11/19/23 Sylvia De La Torre, RN CH-TRANSPLANT ADMINISTRATION [address] [place] [address] Surgical Navigator Transplant Surgery 01/11/21 [place] [address] Surgical Navigator Transplant Surgery 01/11/21 Wolf Dubose MD [address] [address] Surgeon Transplant Surgery 01/11/21 Donovan Zaragoza APRN [address] [address] Referring Physician Transplant Surgery 01/11/21 documented as of this encounter
--- OUTSIDE RECORDS SUMMARY | 2025-01-29 12:05 | XMS_ITS | Encounter Summary ---
Author Organization [facility] Address [address] [place] [address] Care Team Providers Care Bulk Gas Specialist Name Role Phone Ced Al MD Primary Care Provider + [phone] Sylvia De La Torre RN Unavailable [phone] Nyasia Moses Unavailable [phone] Wolf Dubose MD Unavailable [phone] Donovan Zaragoza APRN Unavailable [phone] Mendoza Johnson DO Primary Care Provider [phone] Encounter Details Date Type Department Care Team (Late st Contact Info) Description 10/07/2021 Lab Requisition [facility] [address] [place] [address] Will Bermudez MD [address] [facility] [address] [place] [address] Liver transplant status (CMS/HCC) Social History Tobacco [...] AM EDT Office Visit [facility] [address] [place] [address] Nisreen Wilkinson, OIL RECOVERY OPERATOR [address] [address] documented as of this encounter Procedures Procedure Name Priority Date/Time Associated Diagnosis Comments CYCLOSPORINE LEVEL Routine 10/07/2021 8: 35 AM EDT Liver transplant status (CMS/HCC) documented in this encounter Results * Cyclosporine (10/07/2021 8:35 AM EDT) Cyclosporine 348 100 - 400 ng/mL 10/07/2021 2:05 PM EDT [facility] Blood Venous blood specimen / Unknown 10/07/2021 8:35 AM EDT 10/07/2021 11:11 AM EDT us Will Bermudez MD LAB BLOOD ORDERABLES Final Res ult [facility] [address] [phone] documented in this encounter Visit Diagnoses Diagnosis Liver transplant status (CMS/HCC) documented in this encounter Additional Health Concerns Assessment Noted Time A fall risk assessment has been complete d for the patient 06/08/2021 8:58 AM EST A Body Mass Index follow-up plan has been documented for the patient 05/05/2022 10:19 AM EST documented as of this encounter Care Teams Bulk Gas Specialist Relationship Specialty Start Date End Date Ced Al MD [address] [place] [address] PCP - General 08/20/20 11/18/23 Mendoza Johnson DO [address] [place] [address] PCP - General 11/19/23 Sylvia De La Torre RN [facility] [address] [place], [place] [id number] Surgical Navigator Transplant Surgery 01/11/21 Nyasia Moses [place] [phone] Surgical Navigator Transplant Surgery 01/11/21 Wolf Dubose MD [address] [address] Surgeon Transplant Surgery 01/11/21 Donovan Zaragoza APRN [address] [place] [id number] Referring Physician Transplant Surgery 01/11/21 documented as of this encounter
[2025-01-29 12:10] LABS: Microscopic, Urine URINE MICROSCOPIC (MICROSCOPIC)
[2025-01-29 13:15] LABS: 25-OH Vitamin D, Total 32.4 ng/mL (30-100)
[2025-01-29 14:55] LABS: Bilirubin,Urine Negative (Negative); Color,Urine YELLOW (Yellow); Glucose,Urine (UA) Negative (Negative); Ketones,Urine Negative (Negative); Leukocyte Esterase,Urine Negative (Negative); PH,Urine 6.0 (5.0-8.5); Protein,Urine Negative (Negative); Specific Gravity, Urine 1.010 (1.005-1.030); Urobilinogen,Urine 0.2 EU/dl (0.2)
[2025-01-29 18:44] LABS: Hemoglobin A1C 5.6 % (4.0-6.0)
[2025-01-29 19:20] LABS: Bacteria,Urine Trace /lpf; RBC,Urine Occasional #/hpf (0-3); Squamous Epithelial Cell,Urine Occasional #/hpf (0-5); WBC,Urine Occasional #/hpf (0-3)
== END 2025-01-29 23:59 | disposition home or self-care (01) ==
LOC: LAB 12:00
PROVIDERS: PCP Family Medicine; Visit Provider Nurse Practitioner
DX: N17.9 Acute kidney failure, unspecified (principal); E55.9 Vitamin D deficiency, unspecified
CPT/HCPCS: 81001; 82043; 82306; 82570; 83036; 83970